=== PATIENT | male | born 1950 | race Caucasian/White ===

== ENCOUNTER 2022-12-26 10:19 | Outpatient (OUT) | payer MEDICARE, MEDICAID, SELFPAY | END 2022-12-26 10:20 | LOC: WC 10:21 | PROVIDERS: PCP Internal Medicine; Visit Provider Physician Assistant | DX: L89.620 Pressure ulcer of left heel, unstageable (principal); L89.610 Pressure ulcer of right heel, unstageable | CPT/HCPCS: 99213; G0463 ==

== ENCOUNTER 2023-01-16 12:54 | Outpatient (OUT) | payer MEDICARE, MEDICAID, SELFPAY | END 2023-01-16 12:55 | disposition home or self-care (01) | LOC: WC 12:55 | PROVIDERS: PCP Internal Medicine; Visit Provider Physician Assistant | DX: L89.620 Pressure ulcer of left heel, unstageable (principal); L89.610 Pressure ulcer of right heel, unstageable; I25.10 Atherosclerotic heart disease of native coronary artery without angina pectoris; I50.43 Acute on chronic combined systolic (congestive) and diastolic (congestive) heart failure; J44.9 Chronic obstructive pulmonary disease, unspecified; E11.9 Type 2 diabetes mellitus without complications; K21.9 Gastro-esophageal reflux disease without esophagitis; E78.5 Hyperlipidemia, unspecified; I10 Essential (primary) hypertension; E03.9 Hypothyroidism, unspecified; F41.9 Anxiety disorder, unspecified; Z87.820 Personal history of traumatic brain injury; F06.0 Psychotic disorder with hallucinations due to known physiological condition; F25.0 Schizoaffective disorder, bipolar type | CPT/HCPCS: A6213; G0463 ==

== ENCOUNTER 2023-02-06 10:39 | Outpatient (OUT) | payer MEDICARE, MEDICAID, SELFPAY | END 2023-02-06 10:40 | disposition home or self-care (01) | LOC: WC 10:39 | PROVIDERS: PCP Internal Medicine; Visit Provider Physician Assistant | DX: L89.620 Pressure ulcer of left heel, unstageable (principal); L89.610 Pressure ulcer of right heel, unstageable | CPT/HCPCS: A6213; G0463 ==

== ENCOUNTER 2023-02-08 11:19 | Outpatient (REF) | payer MEDICARE, MEDICAID, SELFPAY ==
[2023-02-08 12:08] LABS: Basophils Absolute Auto 0.1 10^3/uL (0.0-0.1); Basophils Percent Auto 0.8 % (0.2-2.0); Eosinophils Absolute Auto 0.2 10^3/uL (0.0-0.7); Eosinophils Percent Auto 2.6 % (0.9-7.0); Hemoglobin 12.5 g/dL (14.0-18.0); Immature Granulocytes Abs Auto 0.04 10^3/uL (0.00-0.03); Immature Granulocytes Pct Auto 0.5 % (0.0-0.5); Lymphocytes Absolute Auto 1.8 10^3/uL (1.2-3.8); Lymphocytes Percent Auto 20.7 % (20.5-60.0); Mean Corpuscular HGB Conc 32.9 g/dL (29.9-35.2); Mean Corpuscular Volume 91.1 fL (80.0-94.0); Mean Platelet Volume 9.3 fL (9.5-13.5); Monocytes Absolute Auto 1.2 10^3/uL (0.3-0.8); Monocytes Percent Auto 13.1 % (1.7-12.0); Neutrophils Absolute Auto 5.5 10^3/uL (1.4-6.5); Neutrophils Percent Auto 62.3 % (43.0-75.0); Platelet Count 474 10^3/uL (150-450); Red Blood Count 4.17 10^6/uL (4.70-6.10); Red Cell Distribution Width 13.6 % (11.0-15.0); White Blood Count 8.9 10^3/uL (4.0-11.0)
[2023-02-08 12:23] LABS: Alanine Aminotransferase 19 U/L (16-63); Albumin Globulin Ratio 0.6; Albumin Level 2.8 g/dL (3.4-5.0); Alkaline Phosphatase 78 U/L (46-116); Anion Gap 12.7; Aspartate Amino Transferase 17 U/L (15-37); BUN Creatinine Ratio 29.2; Bilirubin Total 0.2 mg/dL (0.2-1.0); Bilirubin Urine NEGATIVE (NEGATIVE); Blood Urine TRACE-I (NEGATIVE); Calcium 9.5 mg/dL (8.5-10.1); Carbon Dioxide 27.1 mmol/L (21.0-32.0); Chloride 102 mmol/L (98-107); Clarity Urine CLEAR (CLEAR); Color Urine YELLOW (YELLOW); Estimated GFR (African America >60 (>=60); Estimated GFR (Non-African Ame >60 (>=60); Globulin 4.6 g/dL; Glucose 167 mg/dL (74-106); Glucose Urine UA NEGATIVE (NEGATIVE); Ketones Urine NEGATIVE (NEGATIVE); Leukocyte Esterase Urine NEGATIVE (NEGATIVE); Nitrite Urine NEGATIVE (NEGATIVE); Potassium 3.8 mmol/L (3.5-5.1); Protein Urine NEGATIVE (NEG/TRACE); Sodium 138 mmol/L (136-145); Specific Gravity Urine 1.025 (1.005-1.025); Thyroid Stimulating Hormone 2.422 uIU/mL (0.358-3.740); Total Protein 7.4 g/dL (6.4-8.2); Urobilinogen Urine 0.2 EU/dL (0.2-1.0); Valproic Acid 55.9 ug/mL (50.0-100.0)
[2023-02-08 12:28] LABS: Urine Microscopic Indicated YES
[2023-02-08 12:41] LABS: WBC Urine 0-2 #/HPF (NONE SEEN)
[2023-02-08 12:42] LABS: Bacteria Urine NONE SEEN #/HPF (NONE SEEN); Cast Seen? NONE SEEN #/LPF (NONE SEEN); Crystals Seen? None Seen #/HPF (None Seen); Mucus Urine NONE SEEN (NONE SEEN); Squamous Epithelial Cell Urine RARE #/LPF (NONE/RARE)
== END 2023-02-08 11:20 | disposition home or self-care (01) ==
LOC: LAB 11:19
PROVIDERS: PCP Internal Medicine
DX: R41.82 Altered mental status, unspecified (principal)
CPT/HCPCS: 36415; 80053; 80164; 81003; 81015; 84443; 85025

== ENCOUNTER 2023-02-13 09:16 | Outpatient (REF) | payer MEDICARE, MEDICAID, SELFPAY ==
[2023-02-13 11:59] LABS: BUN Creatinine Ratio 17.7; Carbon Dioxide 25.6 mmol/L (21.0-32.0); Chloride 103 mmol/L (98-107); Estimated GFR (African America >60 (>=60); Estimated GFR (Non-African Ame >60 (>=60); Glucose 133 mg/dL (74-106); Potassium 3.6 mmol/L (3.5-5.1); Sodium 136 mmol/L (136-145)
== END 2023-02-13 09:17 | disposition home or self-care (01) ==
LOC: LAB 09:16
PROVIDERS: PCP Internal Medicine
DX: Z51.81 Encounter for therapeutic drug level monitoring (principal); Z79.899 Other long term (current) drug therapy
CPT/HCPCS: 36415; 80048

== ENCOUNTER 2023-02-14 08:43 | Outpatient (OUT) | payer MEDICARE, MEDICAID, SELFPAY ==
--- NOTE | 2023-02-14 10:38 | CT_ITS ---
The [address] [address] Patient Name: SHELBY VALERIO MRN: [id number] date: 1950 Sex: M Assigned Patient Location: CT Current Patient Location: CT Accession/Order Number: [id number] Exam Date: 02/14/2023 09:55 Report Date: 02/14/2023 11:52 At the request of: ADELINA NIXON Procedure: CT head/brain wo/w con EXAM: CT head/brain wo/w con HISTORY: Lower extremity weakness COMPARISON: 10/17/2022 TECHNIQUE: Axial CT images were obtained of the head without and with intravenous contrast. Multiplanar reconstructions were performed. FINDINGS: No acute intracranial hemorrhage. No acute loss of che/white differentiation. There is a chronic area of encephalomalacia in the right frontotemporal lobe. A couple of small chronic lacunar infarctions are present in the cerebellum bilaterally. A chronic lacunar infarction is present in the right thalamus. Moderate patchy areas of deep white matter hypoattenuation are present. The ventricles and sulci are prominent due to parenchymal volume loss. No mass lesion or abnormal enhancement. The osseous structures are unremarkable. No soft tissue abnormality identified. The paranasal sinuses and mastoid air cells are clear. CT/CT head/brain wo/w con IMPRESSION: 1. No acute intracranial abnormality. No abnormal enhancement. 2. Multifocal chronic ischemic changes. Electronically authenticated by: CHERI DOBBS Date: 02/14/2023 11:52
== END 2023-02-14 08:44 | disposition home or self-care (01) ==
LOC: CT 08:44
PROVIDERS: PCP Family Medicine; Visit Provider Family Medicine
DX: R53.1 Weakness (principal)
CPT/HCPCS: 70470; Q9967

== ENCOUNTER 2023-02-14 08:47 | Outpatient (REF) | payer MEDICARE, MEDICAID, SELFPAY ==
[2023-02-14 09:02] LABS: Hematocrit 41.1 % (42.0-54.0); Hemoglobin 13.2 g/dL (14.0-18.0); Mean Corpuscular HGB Conc 32.1 g/dL (29.9-35.2); Mean Corpuscular Hemoglobin 29.5 pg (25.9-34.0); Mean Corpuscular Volume 91.7 fL (80.0-94.0); Mean Platelet Volume 9.5 fL (9.5-13.5); Platelet Count 401 10^3/uL (150-450); Red Blood Count 4.48 10^6/uL (4.70-6.10); Red Cell Distribution Width 13.7 % (11.0-15.0); White Blood Count 14.8 10^3/uL (4.0-11.0)
[2023-02-14 09:28] LABS: Eosinophils Absolute Manual 0.29 10^3/uL (0.00-0.70); Lymphocytes Absolute Manual 4.44 10^3/uL (1.20-3.80); Monocytes Absolute Manual 2.66 10^3/uL (0.30-0.80)
== END 2023-02-14 08:48 | disposition home or self-care (01) ==
LOC: LAB 08:47
PROVIDERS: PCP Family Medicine; Visit Provider Family Medicine
DX: Z51.81 Encounter for therapeutic drug level monitoring (principal); Z79.899 Other long term (current) drug therapy
CPT/HCPCS: 36415; 85007; 85025

== ENCOUNTER 2023-02-14 18:28 | Inpatient (IN) | payer MEDICARE, MEDICAID, SELFPAY ==
[2023-02-14] VITALS (42 sets, daily range): BP systolic 84–161; BP diastolic 56–114; PULSE 90–131; RESP 13–47; TEMP 36.8; O2SAT 85–100; BMI 26.6; BMI 21.3
[2023-02-14] MEDS: ONDANSETRON PF 4 MG/2 ML VIAL (18:29)
--- NOTE | 2023-02-14 18:30 | PC.NURSE ---
1822 pt arrives to er via ems pt is obtunded and only responds to painful stimuli. [facility] crew reports were unable to get last known well from [facility]. there was concern of aspiration, pt with fever 104.0, and mentation worse than normal but normal mentation is unknown to ems or the er team. pt taken to room 6. dr rivera in immediately to see pt. pt pulse ox 96% on NRB mask, hr 120-130's. 182 dr rivera electing to intubate pt as pt has difficulty breathing, no verbal response but does open eyes to painful stimuli. dr rivera does speak with pt regarding plan to intubate to protect pt's airway as he is a full code. 1827 #20g iv initiated per toro pearson to rt fa. pt placed on monitor, ekg obtained. routine bp monitoring and continuous pulse ox in place. 182 zofran 4mg given ivp. per jamal eastman rn RT at bedside preparing for intubation wtih dr rivera. 183 etomidate 15mg given ivp per toro pearson rn. 183 Rocironium 80mg given ivp per senthil carter rn. dr rivera and RT Leonor Benavides and Manav Asher at bedside to assist with intubation. 183 pt intubated with 8 ETT wtih good color change and condensation in ETT. pt bagging easily via bvm. ETT 22cm at the [facility]. 1840 cxr completed at this time. 184 ett moved to 25cm at the [facility]. 184 another cxr completed and dr rivera reviewing for ett positioning. dr rivera at bedside to reposition ETT 24cm at the [facility]. 1948 [place] sump 18 fr OG placed per jamal eastman rn with air bolus auscultated to abd per senthil carter rn. lab in for blood draw currently. 185 cxr completed and checked with dr rivera. 1899 kub done to check og placement. [address] with nursing and rt staff at bedside.
--- NOTE | 2023-02-14 18:31 | ECG_ITS ---
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
[2023-02-14] MEDS: ETOMIDATE 20 MG/10 ML VIAL (18:32)
--- NOTE | 2023-02-14 18:33 | CT_ITS ---
The [address] [address] Patient Name: SHELBY VALERIO MRN: [id number] date: 1950 Sex: M Assigned Patient Location: ER Current Patient Location: ER Accession/Order Number: [id number] Exam Date: 02/14/2023 19:00 Report Date: 02/14/2023 19:43 At the request of: JOSE ARMANDO VAZQUEZ Procedure: CT stroke head/brain wo con EXAM: CT stroke head/brain wo con HISTORY: altered mental status COMPARISON: 02/14/2023 at 10:16 AM TECHNIQUE: Unenhanced transaxial tomographic sections obtained from the vertex through the posterior fossa. FINDINGS: Old right MCA distribution infarcts with associated encephalomalacia, unchanged. Old left cerebellar infarcts. Moderate bilateral chronic microvascular ischemic change. No midline shift, mass effect or intracranial hemorrhage are identified. The mastoid air cells are clear. Moderate fluid layering within the left maxillary sinus and small volume of fluid layering within the right maxillary sinus. CT/CT stroke head/brain wo con IMPRESSION: 1. No acute intracranial process is identified. 2. Old cerebellar and right MCA distribution infarcts with associated encephalomalacia. Moderate bilateral chronic microvascular ischemic change. 3. Fluid within the bilateral maxillary sinuses which may be secondary to sinusitis. Electronically authenticated by: JOY GENTILE Date: 02/14/2023 19:43
--- NOTE | 2023-02-14 18:45 | XR_ITS ---
[address] [address] Patient Name: SHELBY VALERIO MRN: [id number] date: 1950 Sex: M Assigned Patient Location: ER Current Patient Location: ER Accession/Order Number: [id number] Exam Date: 02/14/2023 18:45 Report Date: 02/14/2023 19:07 At the request of: JOSE ARMANDO VAZQUEZ Procedure: XR chest 1V EXAMINATION: XR chest 1V HISTORY: Unresponsiveness COMPARISON: None. TECHNIQUE: Portable chest FINDINGS: IMPRESSION: Endotracheal tube has been placed. The tip is 4.1 cm proximal to the rebekah. The lung parenchyma is free of consolidation or infiltrate. No pneumothorax or pleural effusion. The cardiac, mediastinal and hilar contours are normal. The visualized osseous structures exhibit no gross abnormality. Electronically authenticated by: RENEE WHITTINGTON Date: 02/14/2023 19:07
--- NOTE | 2023-02-14 18:51 | ED.GENADUL1 ---
HPI - General Adult General Chief complaint: Shortness of Breath/Dyspnea Stated complaint: FEVER Time Seen by Provider: 02/14/23 18:29 History of Present Illness HPI narrative: Patient is a 72-year-old male who is presenting to the Emergency Room unresponsive, hypoxic from [facility] it was reported the patient was here this morning and had a outpatient CT of the brain with and without contrast. Patient was brought in EMS secondary to hypoxia, unresponsive, and feared aspiration. It was reported by EMS that patient has been not as responsive for the past couple days. Patient was noted to have a fever today. Patient was hypoxic when EMS staff arrived, they placed patient on a nonrebreather, 15 L and patient was in the mid 90s. When patient presented to room 7, patient looks obtunded, not responsive. I asked EMS staff, they stated that he has not been talking, not responding to painful stimuli; they did not know what his GCS was. Patient's blood sugar was within normal limits. Patient was placed into trauma bay, patient had a GCS of 3 and intermittently had a GCS of 6 because he did open his eyes briefly. Patient will be intubated to help protect his airway and secondary to his neurological status. He was reported the patient had a fever andd nursing staff was concerned about possible aspiration. . Limited review of systems to senior care report, EMS staff report, patient is obtunded and nonresponsive . Nurses note and vital signs reviewed and patient is not hypoxic. General: The patient appears In respiratory distress, tachypneic, not opening his eyes, not responding to pain initially, not speaking. Patient is obtunded, not responding. Skin: Warm, Clammy, no pallor noted. There is no rash noted. No petechiae, purpura. Head: Normocephalic, atraumatic Eye: Normal conjunctiva, no drainage, Ears, Nose, Mouth, and Throat: oral mucosa is Dry, poor dentition Cardiovascular: Tachycardic Regular Rate and Rhythm, no murmur, gallop, rub Respiratory: Patient is in Moderate respiratory distress, increased respiratory rate, not speaking, feared aspiration GI: soft, No distention Musculoskeletal: Patient has No moovement of any extremities Neurological: A&O x0, GCS 3 For me initially, patient intermittently would open his eyes without command, but family close them and not open them back up with command. Patient did not respond to my sternal rub twice, barely responded to IV start and painful stimuli by nursing staff; but then I did a sternal rub after this and he did not respond. Patient is not able to protect his airway, GCS less than 8, patient will be intubated. Psychiatric: Cooperative Related Data Home Medications Medication Instructions Recorded Confirmed acetaminophen PO 02/14/23 amlodipine 10 mg tablet 10 mg 02/14/23 aspirin 81 mg tablet,delayed 81 mg 02/14/23 release baclofen 10 mg tablet mg 02/14/23 clonidine HCl 0.1 mg tablet 0.1 mg PO 02/14/23 collagenase clostridium histo. 250 topical 02/14/23 unit/gram topical ointment (Santyl) divalproex 125 mg capsule,delayed mg PO 02/14/23 release sprinkle doxycycline hyclate 100 mg tablet 100 mg PO 02/14/23 gabapentin 300 mg capsule 600 mg PO 02/14/23 gabapentin 600 mg tablet mg 02/14/23 ondansetron 4 mg disintegrating mg 02/14/23 tablet quetiapine 25 mg tablet mg 02/14/23 quetiapine 50 mg tablet mg 02/14/23 tamsulosin 0.4 mg capsule mg PO 02/14/23 Allergies Allergy/AdvReac Type Severity Reaction Status Date / Time Penicillins Allergy Severe Verified 02/14/23 18:30 propoxyphene [From Darvon] Allergy Severe Unknown Verified 02/14/23 18:30 Exam Constitutional Vital Signs, click to edit/add: Last Vital Signs Pulse 111 H 02/14/23 19:28 Resp 16 02/14/23 19:28 Pulse Ox 95 02/14/23 19:28 O2 Del Method Mechanical Ventilator 02/14/23 18:45 FiO2 60 02/14/23 19:28 Course Vital Signs Vital signs: Vital Signs Oxygen Delivery Method Mechanical Ventilator 02/14/23 18:45 Pulse Rate 111 H 02/14/23 19:28 Respiratory Rate 16 02/14/23 19:28 Pulse Oximetry 95 02/14/23 19:28 Oxygen Delivery Method Mechanical Ventilator 02/14/23 18:45 Fraction of Inspired Oxygen 60 02/14/23 19:28 Medical Decision Making MDM Narrative Medical decision making narrative: Patient presented unresponsive, obtunded, GCS less than 8. Patient had a fever and feared aspiration. Patient had a septic workup initiated, CT of the brain was ordered as well prior to me knowing the patient already had a CT of the brain this morning that I did not know about. We will pursue with orders. Patient is transitioned to Dr. kelly at 1900 for follow-up on patient's lab work, x-ray, CT of the brain and admission to the ICU. I have spoken to , and he is aware of patient and can be consulted if needed and help manage the event. Critical care time 35 minutes exclusive from separate billable procedures that were performed. The following was considered in the determination of critical care but not limited to the level of medical decision making, intensive cardiac and/or respiratory monitoring, frequent vital sign monitoring, evaluation of laboratory studies, evaluation of radiographic studies, oxygen monitoring, and constant monitoring and speaking to family at bedside Lab Data Labs: Lab Results 02/14/23 02/14/23 Range/Units 18:53 19:35 WBC 23.5 H (4.0-11.0) 10^3/uL RBC 4.19 L (4.70-6.10) 10^6/uL Hgb 12.5 L (14.0-18.0) g/dL Hct 39.0 L (42.0-54.0) % MCV 93.1 (80.0-94.0) fL MCH 29.8 (25.9-34.0) pg MCHC 32.1 (29.9-35.2) g/dL RDW 13.7 (11.0-15.0) % Plt Count 409 (150-450) 10^3/uL MPV 8.7 L (9.5-13.5) fL Seg Neuts % (Manual) 88.0 Lymphocytes % (Manual) 1.0 L (20.5-60.0) % Atypical Lymphs % (Man) 2.0 % Monocytes % (Manual) 6.0 (1.7-12.0) % Eosinophils % (Manual) 3.0 (0.9-7.0) % Basophils % (Manual) 0.0 L (0.2-2.0) % Neutrophils # (Manual) 20.68 H (1.4-6.5) 10^3/uL Lymphocytes # (Manual) 0.23 L (1.20-3.80) 10^3/uL Monocytes # (Manual) 1.41 H (0.30-0.80) 10^3/uL Eosinophils # (Manual) 0.70 (0.00-0.70) 10^3/uL Basophils # (Manual) 0.00 (0.00-0.10) 10^3/uL PT 10.5 (9.0-11.6) sec INR 0.99 APTT 23.3 (22.3-36.2) sec Puncture Site Rradial ABG pH 7.286 L* (7.350-7.450) ABG pCO2 54.5 H* (35.0-45.0) mmHg ABG pO2 116.0 H (80.0-100.0) mmHg ABG HCO3 25.9 (22.0-26.0) mmol/L ABG O2 Saturation 97.9 % ABG Base Excess -0.7 (-2.0-2.0) mmol/L Ronald Test Positive (POSITIVE) Vent Mode Vc-ac Tidal Volume 400 Sodium 140 (136-145) mmol/L Potassium 4.8 (3.5-5.1) mmol/L Chloride 104 (98-107) mmol/L Carbon Dioxide 26.3 (21.0-32.0) mmol/L Anion Gap 14.5 BUN 23.0 H (7.0-18.0) mg/dL Creatinine 1.22 (0.70-1.30) mg/dL Est GFR ( Amer) >60 (>=60) Est GFR (Non-Af Amer) 58 L (>=60) BUN/Creatinine Ratio 18.9 Glucose 154 H (74-106) mg/dL Lactate 2.7 H* (0.4-2.0) mmol/L Calcium 9.0 (8.5-10.1) mg/dL Total Bilirubin 0.2 (0.2-1.0) mg/dL AST 27 (15-37) U/L ALT 24 (16-63) U/L Alkaline Phosphatase 84 (46-116) U/L Ammonia 33 H (11-32) umol/L Total Creatine Kinase 369 H* (39-308) U/L Total Protein 7.6 (6.4-8.2) g/dL Albumin 2.7 L (3.4-5.0) g/dL Globulin 4.9 g/dL Albumin/Globulin Ratio 0.6 ECG Data Attestation: I personally reviewed and interpreted this ECG as follows: Interpretation: EKG interpretation. Sinus tachycardia at 114. Normal axis deviation. No acute ST elevation, no acute ectopy. QTC of 370. Discharge Plan Discharge Chief Complaint: Shortness of Breath/Dyspnea Clinical Impression: Episode of unresponsiveness, Febrile, Aspiration pneumonia, Acute respiratory distress Patient Disposition: Admitted As Inpatient Condition: Critical Procedures ED Procedure Instructions Procedures Procedures: procedure note. Procedure done by . intubation. patient was preoxygenated with [id number], patient maintain occupation in the high 90s% saturation. A 3-0 Bluford scope blade was used. Patient's has no teeth. A 8.0 ET tube was used. The balloon was checked with 10 cc of air prior to use. There are no holes in the balloon. Vocal cords were visualized. The ET tube was visualized passing through the vocal cords. Patient had good color change on capnometer. Patient had equal breath sounds bilateral, good condensation in the ET tube. The ET tube was secured at 22cm at the gumline Initially.. Patient tolerated the procedure well without difficulty, no trauma was induced. Postintubation chest x-ray was done, patient's ET tube is sitting above the rebekah It was advanced to 24 cm At the gumline and sitting above the rebekah. no emesis occurred. Patient's OG was in place as well.
--- NOTE | 2023-02-14 19:06 | XR_ITS ---
The [address] [address] Patient Name: SHELBY VALERIO MRN: [id number] date: 1950 Sex: M Assigned Patient Location: ER Current Patient Location: ER Accession/Order Number: [id number] Exam Date: 02/14/2023 19:00 Report Date: 02/14/2023 19:24 At the request of: JODI CHIN Procedure: XR abdomen 1V EXAM: XR abdomen 1V HISTORY: check OG COMPARISON: None. TECHNIQUE: Single view FINDINGS: IMPRESSION: Enteric tube is visualized as well as its sidehole. However, the diaphragms are not visualized on this study to give a definitive location. The bowel gas pattern is nonobstructed. Electronically authenticated by: RENEE WHITTINGTON Date: 02/14/2023 19:24
[2023-02-14 19:11] LABS: Hemoglobin 12.5 g/dL (14.0-18.0); Mean Corpuscular HGB Conc 32.1 g/dL (29.9-35.2); Mean Corpuscular Hemoglobin 29.8 pg (25.9-34.0); Mean Corpuscular Volume 93.1 fL (80.0-94.0); Mean Platelet Volume 8.7 fL (9.5-13.5); Platelet Count 409 10^3/uL (150-450); Red Blood Count 4.19 10^6/uL (4.70-6.10); Red Cell Distribution Width 13.7 % (11.0-15.0); White Blood Count 23.5 10^3/uL (4.0-11.0)
[2023-02-14 19:18] LABS: Ammonia 33 umol/L (11-32)
[2023-02-14 19:23] LABS: INR 0.99; Partial Thromboplastin Time 23.3 sec (22.3-36.2); Prothrombin Time 10.5 sec (9.0-11.6)
[2023-02-14 19:24] LABS: Alanine Aminotransferase 24 U/L (16-63); Albumin Globulin Ratio 0.6; Albumin Level 2.7 g/dL (3.4-5.0); Alkaline Phosphatase 84 U/L (46-116); Anion Gap 14.5; Aspartate Amino Transferase 27 U/L (15-37); BUN Creatinine Ratio 18.9; Bilirubin Total 0.2 mg/dL (0.2-1.0); Carbon Dioxide 26.3 mmol/L (21.0-32.0); Chloride 104 mmol/L (98-107); Estimated GFR (African America >60 (>=60); Estimated GFR (Non-African Ame 58 (>=60); Globulin 4.9 g/dL; Glucose 154 mg/dL (74-106); Potassium 4.8 mmol/L (3.5-5.1); Sodium 140 mmol/L (136-145); Total Protein 7.6 g/dL (6.4-8.2)
[2023-02-14 19:25] LABS: Creatine Kinase 369 U/L (39-308); Lactate/Lactic Acid 2.7 mmol/L (0.4-2.0)
[2023-02-14 19:38] LABS: Lymphocytes Absolute Manual 0.23 10^3/uL (1.20-3.80); Monocytes Absolute Manual 1.41 10^3/uL (0.30-0.80); Segmented Neut Absolute Manual 20.68 10^3/uL (1.4-6.5)
[2023-02-14 19:45] LABS: Allen Test POSITIVE (POSITIVE); Base Excess ABG -0.7 mmol/L (-2.0-2.0); HCO3 ABG 25.9 mmol/L (22.0-26.0); Oxygen Saturation ABG 97.9 %
[2023-02-14 19:46] LABS: Puncture Site RRADIAL; Rate 16; Tidal Volume 400; Vent Mode VC-AC
[2023-02-14 19:47] LABS: ABG PCO2 54.5 mmHg (35.0-45.0); pH ABG 7.286 (7.350-7.450)
--- NOTE | 2023-02-14 19:48 | PC.NURSE ---
Shana from lab called criticals. [facility] PH 7.[address] masters.
[2023-02-14] MEDS: LEVOFLOXACIN IN DEXTROSE 5 % 750 MG/150 ML IV.SOLN 100 MG IV (19:54)
[2023-02-14] MEDS: VANCOMYCIN HCL 1,000 MG in 0.9 % SODIUM CHLORIDE 250 ML 250 MG IV (19:59)
[2023-02-14] MEDS: 0.9 % SODIUM CHLORIDE 1,000 ML 999 ML IV (20:04)
--- NOTE | 2023-02-14 20:08 | XR_ITS ---
The [address] [address] Patient Name: SHELBY VALERIO MRN: [id number] date: 1950 Sex: M Assigned Patient Location: ER Current Patient Location: ER Accession/Order Number: [id number] Exam Date: 02/14/2023 20:10 Report Date: 02/14/2023 20:54 At the request of: LAKE SHAH Procedure: XR calcaneus RT min 2V EXAM: XR calcaneus RT min 2V TECHNIQUE: AP and lateral views calcaneus HISTORY: heel wound COMPARISON: None. FINDINGS: No fracture or dislocation. No bony destruction. Small soft tissue wound is seen laterally. XR/XR calcaneus RT min 2V IMPRESSION: Small soft tissue wound without acute bony abnormality. Electronically authenticated by: NAHID TARIQ Date: 02/14/2023 20:54
--- NOTE | 2023-02-14 20:08 | XR_ITS ---
The [address] [address] Patient Name: SHELBY VALERIO MRN: [id number] date: 1950 Sex: M Assigned Patient Location: ER Current Patient Location: ICU Accession/Order Number: [id number] Exam Date: 02/14/2023 20:10 Report Date: 02/14/2023 21:09 At the request of: LAKE SHAH Procedure: XR calcaneus LT min 2V EXAM: XR calcaneus LT min 2V HISTORY: heel wound COMPARISON: None. FINDINGS: 2 views of the left calcaneus. There is no acute fracture or dislocation. The joint spaces are well-maintained. There is a large soft tissue defect over the posterior margin of the calcaneus. There are suspected increased lucency of the subchondral bone plate of the calcaneus deep to the soft tissue wound. XR/XR calcaneus LT min 2V IMPRESSION: Soft tissue wound over the posterior margin of the left foot, with increased subchondral lucency of the underlying calcaneus, an appearance that can be seen with osteomyelitis. Electronically authenticated by: CELESTINO MANCERA Date: 02/14/2023 21:09
[2023-02-14] MEDS: PROPOFOL 1,000 MG/100 ML VIAL 4.8 MG IV (20:10)
[2023-02-14 20:21] LABS: Bilirubin Urine NEGATIVE (NEGATIVE); Blood Urine SMALL (NEGATIVE); Clarity Urine CLEAR (CLEAR); Color Urine LT. YELLOW (YELLOW); Glucose Urine UA NEGATIVE (NEGATIVE); Ketones Urine TRACE mg/dL (NEGATIVE); Leukocyte Esterase Urine NEGATIVE (NEGATIVE); Nitrite Urine NEGATIVE (NEGATIVE); Protein Urine NEGATIVE (NEG/TRACE)
[2023-02-14 20:27] LABS: Urine Microscopic Indicated YES
[2023-02-14 20:29] LABS: Bacteria Urine LARGE #/HPF (NONE SEEN); Cast Seen? NONE SEEN #/LPF (NONE SEEN); Crystals Seen? None Seen #/HPF (None Seen); Mucus Urine NONE SEEN (NONE SEEN); RBC Urine 0-2 #/HPF (0-2); Squamous Epithelial Cell Urine RARE #/LPF (NONE/RARE); Urine Culture Indicated YES; WBC Urine NONE SEEN #/HPF (NONE SEEN)
[2023-02-14 21:18] LABS: Troponin I High Sensitivity 51.3 pg/mL (4.0-76.1)
[2023-02-14 22:25] LABS: Lactate/Lactic Acid 1.8 mmol/L (0.4-2.0)
--- NOTE | 2023-02-14 23:44 | W.PM.TELEPN ---
Progress Note: Subjective Subjective Interval history: The patient is a 72 year old, longterm resident, who has a traumatic brain injury. He apparently has some cognitive deficits at baseline and right arm hemiparesis. He has been having some change in mental status over the last few days. He underwent lab work and a CT of the head which were all normal. He was brought into the ER today because he was more hypoxic. He was noted to have a GSC of 3 and was intubated in the ED. Prior to that, he vomited and there was some aspirated pink secretions. The patient also has been noted to have some bilateral lower extremity ulcers and x-ray has confirmed osteomyelitis of the left heel. The patient was started on vancomycin and Levaquin. He was started on a propofol drip and remains comfortable with mechanical ventilation. He is being admitted to the ICU for further evaluation. Exam Narrative Exam Narrative: General : Intubated, sedated Neck: Supple, no JVD Chest: Clear to auscultation bilaterally, no wheezes Heart: Regular rate and rhythm, S1 and S2 heard Abdomen: Soft nontender nondistended. Extremities: No clubbing cyanosis or edema Skin: Lower extremity ulcers Constitutional Vital Signs, click to edit/add: Last Vital Signs Temp 98.2 F 02/14/23 22:38 Pulse 93 H 02/14/23 22:40 Resp 26 H 02/14/23 22:38 BP 99/64 02/14/23 22:38 Pulse Ox 99 02/14/23 22:40 O2 Del Method Mechanical Ventilator 02/14/23 22:38 FiO2 60 02/14/23 22:38 Progress Note: Objective Labs Labs: Short CBC 02/14/23 Range/Units 18:53 WBC 23.5 H (4.0-11.0) 10^3/uL Hgb 12.5 L (14.0-18.0) g/dL Hct 39.0 L (42.0-54.0) % Plt Count 409 (150-450) 10^3/uL BMP 02/14/23 18:53 Sodium 140 Potassium 4.8 Chloride 104 Carbon Dioxide 26.3 BUN 23.0 H Creatinine 1.22 Glucose 154 H Calcium 9.0 Cardiac Enzymes 02/14/23 Range/Units 18:53 Total Creatine Kinase 369 H* (39-308) U/L Liver Function 07/25/23 Range/Units 18:53 Total Bilirubin 0.2 (0.2-1.0) mg/dL AST 27 (15-37) U/L ALT 24 (16-63) U/L Alkaline Phosphatase 84 (46-116) U/L Albumin 2.7 L (3.4-5.0) g/dL Urine 02/14/23 Range/Units 17:00 Urine Color Lt. yellow (YELLOW) Urine Clarity Clear (CLEAR) Urine pH 6.0 (5.0-9.0) Ur Specific [place] 1.020 (1.005-1.025) Urine Protein Negative (NEG/TRACE) mg/dL Urine Glucose (UA) Negative (NEGATIVE) mg/dL Progress Note: A&P Assessment and Plan (1) Aspiration pneumonia: (2) Acute respiratory distress: Plan The patient is a 72-year-old male with above medical problems, presenting with sepsis secondary to aspiration pneumonia and acute respiratory failure. Acute respiratory failure -Requiring mechanical ventilation -Current vent settings show tidal volume 400, respiratory rate 16, PEEP of 5 and 60% FiO2 -Sedated with 15 mics of propofol -Repeat ABG tonight and adjust settings as needed. -ED provider spoke to pulmonary critical care who will help in further vent management. Sepsis secondary to aspiration pneumonia -Start lactated Ringer IV fluids -Obtain endotracheal aspirate for sputum culture. -Empiric antibiotics with vancomycin, Levaquin, add clindamycin (allergic to penicillin) Osteomyelitis of left heel -Provide supportive care -Above antibiotic should be adequate -Patient may need further evaluation such as bone debridement once acute condition subsides Neuropathy and chronic pain -Hold outpatient medications, patient is currently on propofol Hypertension -Was on clonidine as outpatient -Hydralazine IV as needed -May need scheduled IV medication or transdermal patch pending on blood pressure trends. DVT Prophylaxis -Lovenox, SCDs Medication review -Medication reconciliation form completed Goals of care -Full code -Goals of care will need to be discussed with patient's sister who is out of state and he has a local friend named Shanna. Communications -Discussed with the emergency room physician -Discussed with the bedside nurse Disposition -[facility] when medically stable Telemedicine clause -As the provider of this telehealth evaluation, requested by the patient's evaluating physician, I attest that I introduced myself to the patient, provided my credentials and determined that telemedicine via a real-time, two-way interactive audio and video platform is an appropriate and effective means of providing this service. -I reviewed the patient's chart and had a discussion with the member of the patient's treatment team. -The patient and I mutually agreed with continuation of this evaluation via telemedicine. The patient consented for the telemedicine evaluation. -This virtual encounter was taken place from [place], [place]. The encounter was approximately 35 minutes. The nurse was present during the entire time of the encounter and was able to remove the stethoscope and appropriate directions. The patient was evaluated at [facility]. Telemedicine Attestation Telemedicine Attestation I conducted this encounter from [] via secure live, [id number] video conference with the patient, located at [facility] with []. Prior to the interview, the risks and benefits of telemedicine were discussed with the patient and verbal consent was obtained.
[2023-02-15] VITALS (135 sets, daily range): BP systolic 75–142; BP diastolic 42–72; PULSE 69–98; RESP 16–33; TEMP 36.6–38.2; O2SAT 89–99; BMI 24.0
[2023-02-15 00:22] LABS: ABG PCO2 46.1 mmHg (35.0-45.0); PO2 ABG 79.1 mmHg (80.0-100.0); pH ABG 7.377 (7.350-7.450)
[2023-02-15 00:23] LABS: Allen Test POSITIVE (POSITIVE); Base Excess ABG 1.9 mmol/L (-2.0-2.0); Fractionated Inspired Oxygen 50 %; HCO3 ABG 27.1 mmol/L (22.0-26.0); O2 Mode VENTILATOR; Oxygen Saturation ABG 96.5 %; Puncture Site RIGHT RADIAL; Rate 16; Tidal Volume 400; Vent Mode AC
[2023-02-15] MEDS: LACTATED RINGER'S SOLUTION 1,000 ML 100 ML IV ×2 (00:28→12:40)
[2023-02-15] MEDS: CLINDAMYCIN PHOSPHATE/D5W 600 MG/50 ML PIGGYBACK 100 MG IV ×2 (00:29→05:53)
[2023-02-15] MEDS: PANTOPRAZOLE SODIUM 40 MG VIAL IV (00:29)
[2023-02-15] MEDS: ENOXAPARIN SODIUM 40 MG/0.4 ML SYRINGE SUBQ ×2 (00:29→23:01)
--- NOTE | 2023-02-15 00:30 | RESP.RT ---
Titrated to 50%
--- NOTE | 2023-02-15 04:14 | RESP.RT ---
Titrated to 40%
[2023-02-15 05:09] LABS: Basophils Absolute Auto 0.1 10^3/uL (0.0-0.1); Basophils Percent Auto 0.2 % (0.2-2.0); Hematocrit 34.1 % (42.0-54.0); Hemoglobin 10.7 g/dL (14.0-18.0); Immature Granulocytes Pct Auto 0.7 % (0.0-0.5); Lymphocytes Absolute Auto 1.5 10^3/uL (1.2-3.8); Lymphocytes Percent Auto 5.4 % (20.5-60.0); Mean Corpuscular HGB Conc 31.4 g/dL (29.9-35.2); Mean Corpuscular Hemoglobin 29.8 pg (25.9-34.0); Mean Platelet Volume 9.3 fL (9.5-13.5); Monocytes Absolute Auto 2.9 10^3/uL (0.3-0.8); Monocytes Percent Auto 10.6 % (1.7-12.0); Neutrophils Percent Auto 83.1 % (43.0-75.0); Platelet Count 347 10^3/uL (150-450); Red Blood Count 3.59 10^6/uL (4.70-6.10); Red Cell Distribution Width 13.7 % (11.0-15.0); White Blood Count 27.7 10^3/uL (4.0-11.0)
[2023-02-15 05:26] LABS: Alanine Aminotransferase 21 U/L (16-63); Albumin Globulin Ratio 0.5; Albumin Level 2.2 g/dL (3.4-5.0); Alkaline Phosphatase 64 U/L (46-116); Anion Gap 13.2; Aspartate Amino Transferase 24 U/L (15-37); BUN Creatinine Ratio 22.7; Bilirubin Total 0.4 mg/dL (0.2-1.0); Calcium 8.8 mg/dL (8.5-10.1); Carbon Dioxide 26.4 mmol/L (21.0-32.0); Chloride 105 mmol/L (98-107); Estimated GFR (African America >60 (>=60); Estimated GFR (Non-African Ame >60 (>=60); Globulin 4.2 g/dL; Glucose 115 mg/dL (74-106); Potassium 4.6 mmol/L (3.5-5.1); Sodium 140 mmol/L (136-145); Total Protein 6.4 g/dL (6.4-8.2)
[2023-02-15] MEDS: VANCOMYCIN HCL 1,250 MG in 0.9 % SODIUM CHLORIDE 250 ML 250 MG IV ×2 (09:19→23:01)
--- NOTE | 2023-02-15 09:25 | XR_ITS ---
The [address] [address] Patient Name: SHELBY VALERIO MRN: [id number] date: 1950 Sex: M Assigned Patient Location: ICU Current Patient Location: CT Accession/Order Number: [id number] Exam Date: 02/15/2023 09:40 Report Date: 02/15/2023 10:05 At the request of: SHAIKH BRAD Procedure: XR chest 1V EXAM: XR chest 1V HISTORY: sob COMPARISON: 02/14/2023 TECHNIQUE: AP portable FINDINGS: LUNGS: Endotracheal tube tip is 6.4 cm above the rebekah. Minimal increase in interstitial lung markings VASCULATURE: Mild pulmonary vascular congestion PLEURA: No pneumothorax, effusion, or pleural thickening. CARDIAC: No cardiomegaly or cardiac silhouette abnormality. MEDIASTINUM: No visible mass or adenopathy. BONES: No fracture or visible bone lesion. OTHER: Enteric tube extends off the inferior XR/XR chest 1V IMPRESSION: Pulmonary vascular congestion Electronically authenticated by: RENEE BARBOZA Date: 02/15/2023 10:05
[2023-02-15 09:56] LABS: ABG PCO2 45.4 mmHg (35.0-45.0); PO2 ABG 72.7 mmHg (80.0-100.0); pH ABG 7.412 (7.350-7.450)
[2023-02-15 09:57] LABS: Base Excess ABG 4.2 mmol/L (-2.0-2.0); HCO3 ABG 28.9 mmol/L (22.0-26.0)
[2023-02-15 09:58] LABS: Allen Test POSITIVE (POSITIVE); Fractionated Inspired Oxygen 40 %; O2 Mode VENT; Puncture Site R. RADIAL; Rate 16; Tidal Volume 400; Vent Mode AC
--- NOTE | 2023-02-15 10:13 | CM.NOTE ---
Rounding with Dr. Mayorga and RN Yodit. Discussed possibly extubating patient and having RN contact [facility] to see what the patient's baseline is. RN reports this is his baseline according to [facility], he is a total care, ever lift. Anticipated to return to [facility] upon discharge.
--- NOTE | 2023-02-15 10:17 | CM.NOTE ---
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 I will send updates on pt.
--- NOTE | 2023-02-15 10:49 | DIETREC ---
Nutrition Recommendations: 1) Speech consult recommended for swallowing once extubated 2) If patient to remain intubated, recommend initiating nutrition support with Glucerna 1.5 Will monitor POC and follow-up
--- NOTE | 2023-02-15 11:41 | PM.HP ---
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 There was also a report of aspiration and on arrival, patient was hypoxic, with increased work of breathing with GCS of 3. Patient was intubated in ED primarily for failure to protect airway and was admitted overnight for sepsis. Patient was started on IV vancomycin/Levaquin and Clindamycin for presumed aspiration Pneumonia along with b/l feet osteomyelitis/cellulitis. This morning, patient was extubated sucessfully and is currently on 2 L O2 via NC. Patient has limited ability to converse and can answer yes and no and denied any active complaints to me. He seems to be at his baseline mental status today Review of Systems ROS Narrative Limited by patient's ability to converse but negative for SOB, Pain/fever. [facility] Medical History (Updated 02/15/23 @ 12:24 by Shaikh Tierra MD) Surgical History (Updated 02/15/23 @ 12:16 by Shaikh Tierra MD) Social History (Updated 02/15/23 @ 12:17 by Shaikh Tierra MD) Within the past year, how often did you have a drink containing alcohol: never Score interpretation: A score less than 4 is consistent with normal alcohol consumption. Smoking status: Never smoker Non-prescribed substance use: denies use Meds Home Medications and Allergies Home Medications Medication Instructions Recorded Confirmed Type acetaminophen 650 mg PO .every 4 hours PRN pain 02/14/23 02/14/23 History amlodipine 10 mg tablet 10 mg PO DAILY 02/14/23 02/14/23 History aspirin 81 mg tablet,delayed 81 mg PO DAILY 02/14/23 02/14/23 History release baclofen 10 mg tablet 10 mg PO TID 02/14/23 02/14/23 History clonidine HCl 0.1 mg tablet 0.1 mg PO BID 02/14/23 02/14/23 History collagenase clostridium histo. 250 topical 02/14/23 History unit/gram topical ointment (Santyl) divalproex 125 mg capsule,delayed 125 mg PO TID 02/14/23 02/14/23 History release sprinkle doxycycline hyclate 100 mg tablet 100 mg PO BID 02/14/23 02/14/23 History gabapentin 300 mg capsule 600 mg PO BID 02/14/23 02/14/23 History gabapentin 600 mg tablet mg 02/14/23 History ondansetron 4 mg disintegrating 4 mg PO Q6H PRN nausea and vomiting 02/14/23 02/14/23 History tablet quetiapine 25 mg tablet 75 mg PO BEDTIME 02/14/23 02/14/23 History quetiapine 50 mg tablet 75 mg PO BEDTIME 02/14/23 02/14/23 History tamsulosin 0.4 mg capsule 0.4 mg PO BEDTIME 02/14/23 02/14/23 History Allergies Allergy/AdvReac Type Severity Reaction Status Date / Time Penicillins Allergy Severe Verified 02/14/23 18:30 propoxyphene [From Darvon] Allergy Severe Unknown Verified 02/14/23 18:30 Exam Constitutional Vital Signs, click to edit/add: Last Vital Signs Temp 98.4 F 02/15/23 07:53 Pulse 91 H 02/15/23 09:55 Resp 24 02/15/23 09:01 BP 93/55 L 02/15/23 07:10 Pulse Ox 95 02/15/23 09:01 O2 Del Method Mechanical Ventilator 02/15/23 07:10 FiO2 40 02/15/23 09:01 Documenting provider has reviewed patient's vital signs: yes Common normals: no apparent distress, average body habitus and oriented x3 HENMT Common normals: normocephalic and head/scalp atraumatic Eye Common normals: conjunctivae normal and no scleral icterus Respiratory Common normals: normal respiratory effort, no use of accessory muscles and clear to auscultation bilaterally GI Common normals: Normal to inspection, nondistended, normoactive bowel sounds present, soft to palpation, non-tender and no hepatosplenomegaly Extremity Right lower extremity: ankle joint (Ulcer over heel - foul smelling with purulent discharge) Left lower extremity: ankle joint (Ulcer over heel - foul smelling with purulent discharge) Neuro Common normals: oriented x3 Speech: abnormal speech (Limited, can speak few words) Gait (neuro): spastic hemiparesis Motor exam: strength abnormal (0/5 b/u UE and LE) Other: Spastic paresis of UE and LE Psych Common normals: mental status grossly normal, denies homicidal ideation and denies suicidal ideation Results Labs Labs: Short CBC 02/14/23 02/15/23 Range/Units 18:53 03:59 WBC 23.5 H 27.7 H (4.0-11.0) 10^3/uL Hgb 12.5 L 10.7 L (14.0-18.0) g/dL Hct 39.0 L 34.1 L (42.0-54.0) % Plt Count 409 347 (150-450) 10^3/uL BMP 02/14/23 02/15/23 18:53 03:59 Sodium 140 140 Potassium 4.8 4.6 Chloride 104 105 Carbon Dioxide 26.3 26.4 BUN 23.0 H 22.0 H Creatinine 1.22 0.97 Glucose 154 H 115 H Calcium 9.0 8.8 Cardiac Enzymes 02/14/23 Range/Units 18:53 Total Creatine Kinase 369 H* (39-308) U/L Liver Function 02/14/23 02/15/23 Range/Units 18:53 03:59 Total Bilirubin 0.2 0.4 (0.2-1.0) mg/dL AST 27 24 (15-37) U/L ALT 24 21 (16-63) U/L Alkaline Phosphatase 84 64 (46-116) U/L Albumin 2.7 L 2.2 L (3.4-5.0) g/dL Urine 02/14/23 Range/Units 17:00 Urine Color Lt. yellow (YELLOW) Urine Clarity Clear (CLEAR) Urine pH 6.0 (5.0-9.0) Ur Specific Creole 1.020 (1.005-1.025) Urine Protein Negative (NEG/TRACE) mg/dL Urine Glucose (UA) Negative (NEGATIVE) mg/dL ABG ABG results: 02/14/23 02/14/23 02/15/23 00:16 19:35 09:50 ABG pH 7.377 7.286 L* 7.412 ABG pCO2 46.1 H 54.5 H* 45.4 H ABG pO2 79.1 L 116.0 H 72.7 L ABG HCO3 27.1 H 25.9 28.9 H ABG O2 Saturation 96.5 97.9 96.0 ABG Base Excess 1.9 -0.7 4.2 H Assessment and Plan Assessment and Plan (1) Aspiration pneumonia: Assessment and Plan: Episode of aspiration resulting in acute resp failure with hypoxia -required endotracheal intubated and was on ventilator until this morning. Extubated today and currently on 2 L O2 via NC with no evidence of resp distress. CXR no evidence of consolidation but suspect its likely too soon. On broad spectrum abx - Vancomycin/Levaquin/Flagyl Qualifiers: Aspiration pneumonia type: due to gastric secretions Laterality: unspecified laterality Lung location: unspecified part of lung Qualified Code(s): J69.0 - Pneumonitis due to inhalation of food and vomit (2) Metabolic encephalopathy: Assessment and Plan: P/w AMS - was comatosed with GCS of 3. Now back to his baseline CTH no acute intracranial pathology. (3) Osteomyelitis of ankle: Assessment and Plan: b/l OM -foul smelling/purulent discharge. Small, about the size of a quarter. On IV abx. Consulted Podiatry. Will need deridement. (4) Sepsis: Assessment and Plan: HR > 90, RR > 20, WBC > 20K Suspect Aspiration PNA and/or OM of his feet b/l as the source. On IV vancomycin/Levaquin/flagyl. Stable hemodynamics now. C/w IVF. F/u cx. Qualifiers: Sepsis type: sepsis due to unspecified organism Sepsis acute organ dysfunction status: with acute organ dysfunction Severe sepsis acute organ dysfunction type: encephalopathy (5) Respiratory failure with hypoxia: Assessment and Plan: Was intubated in ED for resp failure and failure to protect his airway Extubated earlier today. 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 (8) Seizure disorder: Assessment and Plan: On depakote. Controlled with no report of recent breakthrough seizures. (9) Hypertension: Assessment and Plan: On clonidine and Amlodipine. Hold due to sepsis. On IVF. Monitor
[2023-02-15] MEDS: GABAPENTIN 300 MG CAPSULE 600 MG PO ×2 (12:23→21:12)
[2023-02-15] MEDS: METRONIDAZOLE/SODIUM CHLORIDE 500 MG/100 ML PREMIX 100 MG IV ×2 (12:23→18:31)
[2023-02-15 12:43] LABS: Glucometer 114 mg/dL (74-106)
[2023-02-15 12:55] LABS: Erythrocyte Sedimentation Rate 74 mm/hr (<=20)
[2023-02-15 13:02] LABS: C Reactive Protein 21.8 mg/dL (<=1.0)
[2023-02-15] MEDS: ACETAMINOPHEN 325 MG TABLET 650 MG PO (13:39)
[2023-02-15] MEDS: BACLOFEN 10 MG TABLET PO ×2 (13:40→21:13)
[2023-02-15] MEDS: DIVALPROEX SODIUM 125 MG TABLET.DR PO ×2 (13:59→21:12)
--- NOTE | 2023-02-15 14:32 | P.PODCN_ITS ---
[facility] - Podiatry Data of Consult Patient: known to practice within the last 3 years Consult date: 02/15/23 Requesting physician: Shaikh Tierra MD Primary care provider: ADELINA NIXON Consult Narrative Reason for consult: bilateral calcaneal ulcerations Narrative: patient is a 72-year-old gentleman seen in patient today with past medical history significant for acute kidney failure, anxiety, benign prostatic hypertrophy, cognitive deficit, congestive heart failure, chronic obstructive pulmonary disease, dementia, GERD, hyperlipidemia, hypertension, hypothyroidism, quadriplegic, seizure disorder, type 2 diabetes, history of traumatic brain injury, history of urinary tract infections seen for bilateral calcaneal ulc erations. Patient is relatively unresponsive during questioning today does not give any history. he was last seen in our clinic 02/06/23 her ulcers seem to be somewhat stagnant with increased depth despite offloading and Santyl dressing changes. I did speak with his family member Migue who I was told is his power of civil rights attorney to discuss possible treatment. cc:: CC: Shaikh Tierra MD Review of Systems ROS Status of ROS unobtainable due to mental status [facility] Medical History (Updated 02/15/23 @ 12:24 by Shaikh Tierra MD) Surgical History (Updated 02/15/23 @ 12:16 by Shaikh Tierra MD) Social History (Updated 02/15/23 @ 12:17 by Shaikh Tierra MD) Within the past year, how often did you have a drink containing alcohol: never Score interpretation: A score less than 4 is consistent with normal alcohol consumption. Smoking status: Never smoker Non-prescribed substance use: denies use Exam Narrative Exam Narrative: dermatological: Full-thickness ulcerations to bilateral heels left worse than right, necrotic and fibrous bases, exposed Achilles tendon and positive probe to bone bilaterally, no purulence, no erythema, no edema no other open lesions noted Skin spelled and supple No redness Vascular: Pulses poorly palpable Capillary refill intact No edema No erythema Nerve: Unable to be tested secondary to mental status but documented quadriplegic muscular skeletal Unable to test secondary to mental status but documented quadriplegic equinovarus contractures noted imaging: Emergency room ordered calcaneal x-rays which the left does demonstrate very subtle changes on the calcaneal axial view which could be secondary to bone and laboratory status and osteopenia versus early stages of ostitis No cortical breaks or cortical erosions noted on the right Low concern for osteomyelitis based on these images although his ulcers do probe to bone I would recommend obtaining MRI for further evaluation of infection Constitutional Vital Signs, click to edit/add: Last Vital Signs Temp 100.8 F H 02/15/23 13:36 Pulse 91 H 02/15/23 14:00 Resp 16 02/15/23 13:36 BP 92/50 L 02/15/23 13:36 Pulse Ox 96 02/15/23 14:00 O2 Del Method Nasal Cannula 02/15/23 13:36 O2 Flow Rate 4 02/15/23 13:36 FiO2 40 02/15/23 12:00 Assessment and Plan Assessment and Plan (1) Aspiration pneumonia: Assessment and Plan: Episode of aspiration resulting in acute resp failure with hypoxia -required endotracheal intubated and was on ventilator until this morning. Extubated today and currently on 2 L O2 via NC with no evidence of resp distress. CXR no evidence of consolidation but suspect its likely too soon. On broad spectrum abx - Vancomycin/Levaquin/Flagyl Qualifiers: Aspiration pneumonia type: due to gastric secretions Laterality: unspecified laterality Lung location: unspecified part of lung Qualified Code(s): J69.0 - Pneumonitis due to inhalation of food and vomit (2) Metabolic encephalopathy: Assessment and Plan: P/w AMS - was comatosed with GCS of 3. Now back to his baseline CTH no acute intracranial pathology. (3) Osteomyelitis of ankle: Assessment and Plan: b/l OM -foul smelling/purulent discharge. Small, about the size of a quarter. On IV abx. Consulted Podiatry. Will need deridement. (4) Sepsis: Assessment and Plan: HR > 90, RR > 20, WBC > 20K Suspect Aspiration PNA and/or OM of his feet b/l as the source. On IV vancomycin/Levaquin/flagyl. Stable hemodynamics now. C/w IVF. F/u cx. Qualifiers: Sepsis type: sepsis due to unspecified organism Sepsis acute organ dysfunction status: with acute organ dysfunction Severe sepsis acute organ dysfunction type: encephalopathy (5) Respiratory failure with hypoxia: Assessment and Plan: Was intubated in ED for resp failure and failure to protect his airway Extubated earlier today. 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 (8) Seizure disorder: Assessment and Plan: On depakote. Controlled with no report of recent breakthrough seizures. (9) Hypertension: Assessment and Plan: On clonidine and Amlodipine. Hold due to sepsis. On IVF. Monitor Plan assessment: Left calcaneal ulceration Right calcaneal ulceration Quadriplegic plan: Patient seen and evaluated Physical exam findings reviewed with hospitalist team and family member who is the power of civil rights attorney labs reviewed, WBC of 27.7, CRP of 21.8, ESR of seventy-four After verbal consent was obtained from his power of civil rights attorney I did debrided his ulcers down to and including subcutaneous tissue without incident. dressings included Santyl, 4 x 4 gauze, ABDs and Kerlix I recommend Santyl with dry dressings daily I discussed with his hospitalist team that I have low suspicion that the calcaneal ulcers are causing his elevated inflammatory markers and white count There is bacteria noted on his UA which likely could be another reason for his infection concerns If his labs continue to worsen I did discuss obtaining an MRI for further e valuation of calcaneal osteomyelitis. This will likely need to be treated with a partial calcanectomy We will await to see how he responds to antibiotics We will follow with his family can call for questions or concerns We'll see him on an outpatient wound center in 1-2 weeks from discharge
--- NOTE | 2023-02-15 16:32 | CM.NOTE ---
Contacted pt's son Migue, pt's guardian for update on pt. Migue would like all information to come through him or notifications to be given to him. Updated RN on Migue as being pt's guardian.
[2023-02-15 16:44] LABS: Glucometer 101 mg/dL (74-106)
[2023-02-15] MEDS: 0.9 % SODIUM CHLORIDE 1,000 ML 1000 ML IV (16:55)
[2023-02-15] MEDS: LACTATED RINGER'S SOLUTION 1,000 ML 150 ML IV ×2 (17:58→23:01)
[2023-02-15] MEDS: LEVOFLOXACIN IN DEXTROSE 5 % 750 MG/150 ML IV.SOLN 100 MG IV (21:12)
[2023-02-15] MEDS: QUETIAPINE FUMARATE 25 MG TABLET 75 MG PO (21:13)
[2023-02-15 21:17] LABS: Glucometer 96 mg/dL (74-106)
[2023-02-16] VITALS (116 sets, daily range): BP systolic 78–161; BP diastolic 44–88; PULSE 67–201; RESP 13–39; TEMP 36.7–37.3; O2SAT 86–98
[2023-02-16 01:20] LABS: A. calcoaceticus-baumannii Cpx NOT DETECTED (NOT DETECTE); Bacteroides fragilis NOT DETECTED (NOT DETECTE); Candida albicans NOT DETECTED (NOT DETECTE); Candida auris NOT DETECTED (NOT DETECTE); Candida glabrata NOT DETECTED (NOT DETECTE); Candida krusei NOT DETECTED (NOT DETECTE); Candida parapsilosis NOT DETECTED (NOT DETECTE); Candida tropicalis NOT DETECTED (NOT DETECTE); Cryptococcus neoformans/gattii NOT DETECTED (NOT DETECTE); Enterobacter cloacae complex NOT DETECTED (NOT DETECTE); Enterobacterales NOT DETECTED (NOT DETECTE); Enterococcus faecalis NOT DETECTED (NOT DETECTE); Enterococcus faecium NOT DETECTED (NOT DETECTE); Haemophilus influenzae NOT DETECTED (NOT DETECTE); Klebsiella aerogenes NOT DETECTED (NOT DETECTE); Klebsiella pneumoniae group NOT DETECTED (NOT DETECTE); Listeria monocytogenes NOT DETECTED (NOT DETECTE); Neisseria meningitidis NOT DETECTED (NOT DETECTE); Proteus spp. NOT DETECTED (NOT DETECTE); Pseudomonas aeruginosa NOT DETECTED (NOT DETECTE); Salmonella spp. NOT DETECTED (NOT DETECTE); Serratia marcescens NOT DETECTED (NOT DETECTE); Staphylococcus epidermidis NOT DETECTED (NOT DETECTE); Staphylococcus lugdunensis NOT DETECTED (NOT DETECTE); Stenotrophomonas maltophilia NOT DETECTED (NOT DETECTE); Streptococcus agalactiae NOT DETECTED (NOT DETECTE); Streptococcus pneumoniae NOT DETECTED (NOT DETECTE); Streptococcus pyogenes NOT DETECTED (NOT DETECTE); Streptococcus spp. NOT DETECTED (NOT DETECTE)
[2023-02-16 02:34] LABS: Staphylococcus spp. DETECTED (NOT DETECTE)
[2023-02-16] MEDS: METRONIDAZOLE/SODIUM CHLORIDE 500 MG/100 ML PREMIX 100 MG IV ×3 (04:04→18:00)
[2023-02-16 04:36] LABS: Basophils Absolute Auto 0.1 10^3/uL (0.0-0.1); Basophils Percent Auto 0.4 % (0.2-2.0); Eosinophils Absolute Auto 0.2 10^3/uL (0.0-0.7); Eosinophils Percent Auto 0.9 % (0.9-7.0); Hematocrit 28.1 % (42.0-54.0); Hemoglobin 9.2 g/dL (14.0-18.0); Immature Granulocytes Abs Auto 0.17 10^3/uL (0.00-0.03); Immature Granulocytes Pct Auto 0.7 % (0.0-0.5); Lymphocytes Absolute Auto 2.2 10^3/uL (1.2-3.8); Lymphocytes Percent Auto 8.9 % (20.5-60.0); Mean Corpuscular HGB Conc 32.7 g/dL (29.9-35.2); Mean Corpuscular Hemoglobin 30.8 pg (25.9-34.0); Mean Platelet Volume 9.4 fL (9.5-13.5); Monocytes Absolute Auto 2.5 10^3/uL (0.3-0.8); Monocytes Percent Auto 10.1 % (1.7-12.0); Neutrophils Absolute Auto 19.5 10^3/uL (1.4-6.5); Platelet Count 326 10^3/uL (150-450); Red Blood Count 2.99 10^6/uL (4.70-6.10); Red Cell Distribution Width 13.8 % (11.0-15.0); White Blood Count 24.6 10^3/uL (4.0-11.0)
[2023-02-16 05:11] LABS: Alanine Aminotransferase 17 U/L (16-63); Albumin Globulin Ratio 0.5; Alkaline Phosphatase 63 U/L (46-116); Anion Gap 9.8; Aspartate Amino Transferase 15 U/L (15-37); BUN Creatinine Ratio 21.1; Bilirubin Total 0.3 mg/dL (0.2-1.0); Calcium 8.7 mg/dL (8.5-10.1); Carbon Dioxide 26.9 mmol/L (21.0-32.0); Chloride 104 mmol/L (98-107); Estimated GFR (African America >60 (>=60); Estimated GFR (Non-African Ame >60 (>=60); Globulin 4.1 g/dL; Glucose 95 mg/dL (74-106); Potassium 3.7 mmol/L (3.5-5.1); Sodium 137 mmol/L (136-145); Total Protein 6.1 g/dL (6.4-8.2)
[2023-02-16 07:27] LABS: Glucometer 98 mg/dL (74-106)
--- NOTE | 2023-02-16 08:05 | XR_ITS ---
The [address] [address] Patient Name: SHELBY VALERIO MRN: [id number] date: 1950 Sex: M Assigned Patient Location: ICU Current Patient Location: ICU Accession/Order Number: [id number] Exam Date: 02/16/2023 08:40 Report Date: 02/16/2023 08:56 At the request of: SHAIKH BRAD Procedure: XR chest 1V EXAM: XR chest 1V HISTORY: sob COMPARISON: 02/15/2023 TECHNIQUE: AP portable FINDINGS: LUNGS: Mild diffuse right and left basilar opacities. Interval extubation VASCULATURE: No increased pulmonary vasculature. PLEURA: No pneumothorax. Blunting of the left lateral costophrenic angle suggests a small pleural effusion CARDIAC: No cardiomegaly or cardiac silhouette abnormality. MEDIASTINUM: No visible mass or adenopathy. BONES: No fracture or visible bone lesion. OTHER: Interval removal of the enteric tube. XR/XR chest 1V IMPRESSION: Mild bilateral parenchymal infiltrates, consider pulmonary edema Electronically authenticated by: RENEE BARBOZA Date: 02/16/2023 08:56
[2023-02-16] MEDS: VANCOMYCIN HCL 1,250 MG in 0.9 % SODIUM CHLORIDE 250 ML 250 MG IV ×2 (09:05→21:08)
[2023-02-16 10:05] LABS: Magnesium 1.9 mg/dL (1.8-2.4)
[2023-02-16 10:07] LABS: Troponin I High Sensitivity 104.1 pg/mL (4.0-76.1)
--- NOTE | 2023-02-16 10:11 | CM.NOTE ---
Rounding with Dr. Mayorga and RN Argenis. Discussing some quality assurance monitor chassis strips. Pt. is following commands, sticking tounge out when Dr asks. Plan to return to [facility] upon discharge.
[2023-02-16 10:40] LABS: Glucometer 100 mg/dL (74-106)
--- NOTE | 2023-02-16 11:10 | PM.IMPN1 ---
Progress Note: A&P Assessment and Plan (1) SVT (supraventricular tachycardia): Assessment and Plan: Breif episodes and reverts to NSR. Added Lopressor. Recent 2D ECHO in 10/13 - normal EF Unsure if he is a good candidate for stroke px. Will d/w patient POA. (2) Aspiration pneumonia: Assessment and Plan: B/l infiltrates on CXR. Being treated for Aspiration PNA. F/u blood and sputum cx. Qualifiers: Aspiration pneumonia type: due to gastric secretions Laterality: unspecified laterality Lung location: unspecified part of lung Qualified Code(s): J69.0 - Pneumonitis due to inhalation of food and vomit (3) Metabolic encephalopathy: Assessment and Plan: Back to baseline. CTH - no acute pathology. (4) Sepsis: Assessment and Plan: Was hypotensive last evening and required IV fluids. Stable Hemodynamics now. C/w IVF hydration as poor PO intake. Qualifiers: Sepsis type: sepsis due to unspecified organism Sepsis acute organ dysfunction status: with acute organ dysfunction Severe sepsis acute organ dysfunction type: encephalopathy (5) Dysphagia: Assessment and Plan: On pureed diet but there is concern for aspiration with pureed diet too. Speech evaluation ordered. If sig aspiration, might need PEG tube. Qualifiers: Dysphagia type: oropharyngeal phase Qualified Code(s): R13.12 - Dysphagia, oropharyngeal phase (6) Osteomyelitis of ankle: Assessment and Plan: Outpatient f/u as per Podiatry. (7) Respiratory failure with hypoxia: Assessment and Plan: Down to 3 L O2 via NC. Wean off as tolerated. 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 Bed bound (10) Seizure disorder: Assessment and Plan: post traumatic. On Valproate.. (11) Hypertension: Assessment and Plan: on amlodipine and clonidine at home. Keep on holding his meds Started on Lopressor. Internal Medicine - PN: Subj Subjective Interval history: Seen and examined. Hypotensive last night and responded to IV fluids. Brief periods of SVT -reverts to NSR w/o any intervention. Nursing raised concern about his ability to safely eat oral diet due to dysphagia. Exam Constitutional Vital Signs, click to edit/add: Last Vital Signs Temp 98.2 F 02/16/23 11:00 Pulse 89 07/27/23 10:40 Resp 20 02/16/23 10:40 BP 129/72 H 02/16/23 10:39 Pulse Ox 96 02/16/23 10:40 O2 Del Method Nasal Cannula 02/16/23 11:00 O2 Flow Rate 3 02/16/23 11:00 FiO2 40 02/16/23 01:00 Documenting provider has reviewed patient's vital signs: yes Common normals: no apparent distress, average body habitus and oriented x3 HENMT Common normals: normocephalic and head/scalp atraumatic Eye Common normals: conjunctivae normal and no scleral icterus Respiratory Common normals: normal respiratory effort and no use of accessory muscles Other: Rhonchi b/l, upper airway secretions GI Common normals: Normal to inspection, nondistended, normoactive bowel sounds present, soft to palpation, non-tender and no hepatosplenomegaly Extremity Right lower extremity: ankle joint (Ulcer over heel - foul smelling with purulent discharge) Left lower extremity: ankle joint (Ulcer over heel - foul smelling with purulent discharge) Neuro Common normals: oriented x3 Speech: abnormal speech (Limited, can speak few words) Gait (neuro): spastic hemiparesis Motor exam: strength abnormal (0/5 b/u UE and LE) Other: Spastic paresis of UE and LE Psych Common normals: mental status grossly normal, denies homicidal ideation and denies suicidal ideation Internal Medicine - PN: Obj Da Labs Labs: Laboratory Results - last 24 hr 02/15/23 02/15/23 02/15/23 12:32 12:41 16:34 WBC RBC Hgb Hct MCV MCH MCHC RDW Plt Count MPV Neut % (Auto) Lymph % (Auto) [place] % (Auto) Eos % (Auto) Baso % (Auto) Neut # (Auto) Lymph # (Auto) [place] # (Auto) Eos # (Auto) Baso # (Auto) Abs Immat Gran (auto) Imm/Tot Granulo (auto) ESR 74 H Sodium Potassium Chloride Carbon Dioxide Anion Gap BUN Creatinine Est GFR ( Amer) Est GFR (Non-Af Amer) BUN/Creatinine Ratio Glucose Calcium Magnesium Total Bilirubin AST ALT Alkaline Phosphatase Troponin I High Sens C-Reactive Protein 21.8 H Total Protein Albumin Globulin Albumin/Globulin Ratio Barry H. influenza (PCR) A.calcoaceticus-baumannii cmplx PCR Bacteroides fragilis Mari albicans (PCR) Mari auris (PCR) C. glabrata (PCR) C. krusei (PCR) C. parapsilosis (PCR) C. tropicalis (PCR) C. neoform/gattii (PCR) Enterobacterales (PCR) E. cloacae complex PCR Enterococc faecalis PCR Enterococc faecium PCR E. coli (PCR) Klebsiella aerogenes (PCR) Klebsiella oxytoca PCR K. pneumoniae group (PCR) List. monocytogenes PCR N. meningitidis (PCR) Proteus spp. (copies/mL) Salmonella spp. (PCR) Serratia marcescens PCR Staphylococcus sp PCR Staph aureus (PCR) mecA/C & MREJ Resist Gene mecA/C-Methicil Resis Gene mcr-1 Colistin Res Gene PCR Staph epidermidis (PCR) Staph lugdunensis (TEM-PCR) S. maltophilia (PCR) Streptococcus sp PCR Strep agalactiae (PCR) Strep pneumoniae (PCR) S. pyogenes (PCR) P. aeruginosa (PCR) Tushar/B-Vanco Res Genes blaIMP Car res Gene PCR KPC (blaKPC) Detect PCR NDM (blaNDM) Detect PCR OXA-48 Carbapenem Resis Gene (PCR) blaVIM Car Res Gene PCR CTX-M ESBL (PCR) POC Glucose 114 H 101 02/15/23 02/16/23 02/16/23 21:15 00:00 03:50 WBC 24.6 H RBC 2.99 L Hgb 9.2 L Hct 28.1 L MCV 94.0 MCH 30.8 MCHC 32.7 RDW 13.8 Plt Count 326 MPV 9.4 L Neut % (Auto) 79.0 H Lymph % (Auto) 8.9 L [place] % (Auto) 10.1 Eos % (Auto) 0.9 Baso % (Auto) 0.4 Neut # (Auto) 19.5 H Lymph # (Auto) 2.2 [place] # (Auto) 2.5 H Eos # (Auto) 0.2 Baso # (Auto) 0.1 Abs Immat Gran (auto) 0.17 H Imm/Tot Granulo (auto) 0.7 H ESR Sodium 137 Potassium 3.7 Chloride 104 Carbon Dioxide 26.9 Anion Gap 9.8 BUN 15.0 Creatinine 0.71 Est GFR ( Amer) >60 Est GFR (Non-Af Amer) >60 BUN/Creatinine Ratio 21.1 Glucose 95 Calcium 8.7 Magnesium 1.9 Total Bilirubin 0.3 AST 15 ALT 17 Alkaline Phosphatase 63 Troponin I High Sens 104.1 H* C-Reactive Protein Total Protein 6.1 L Albumin 2.0 L Globulin 4.1 Albumin/Globulin Ratio 0.5 Barry H. influenza (PCR) Not detected A.calcoaceticus-baumannii cmplx PCR Not detected Bacteroides fragilis Not detected Mari albicans (PCR) Not detected Mari auris (PCR) Not detected C. glabrata (PCR) Not detected C. krusei (PCR) Not detected C. parapsilosis (PCR) Not detected C. tropicalis (PCR) Not detected C. neoform/gattii (PCR) Not detected Enterobacterales (PCR) Not detected E. cloacae complex PCR Not detected Enterococc faecalis PCR Not detected Enterococc faecium PCR Not detected E. coli (PCR) Not detected Klebsiella aerogenes (PCR) Not detected Klebsiella oxytoca PCR Not detected K. pneumoniae group (PCR) Not detected List. monocytogenes PCR Not detected N. meningitidis (PCR) Not detected Proteus spp. (copies/mL) Not detected Salmonella spp. (PCR) Not detected Serratia marcescens PCR Not detected Staphylococcus sp PCR Detected A* Staph aureus (PCR) Not detected mecA/C & MREJ Resist Gene Not applicable mecA/C-Methicil Resis Gene Not applicable mcr-1 Colistin Res Gene PCR Not applicable Staph epidermidis (PCR) Not detected Staph lugdunensis (TEM-PCR) Not detected S. maltophilia (PCR) Not detected Streptococcus sp PCR Not detected Strep agalactiae (PCR) Not detected Strep pneumoniae (PCR) Not detected S. pyogenes (PCR) Not detected P. aeruginosa (PCR) Not detected Tushar/B-Vanco Res Genes Not applicable blaIMP Car res Gene PCR Not applicable KPC (blaKPC) Detect PCR Not applicable NDM (blaNDM) Detect PCR Not applicable OXA-48 Carbapenem Resis Gene (PCR) Not applicable blaVIM Car Res Gene PCR Not applicable CTX-M ESBL (PCR) Not applicable POC Glucose 96 02/16/23 02/16/23 07:25 10:37 WBC RBC Hgb Hct MCV MCH MCHC RDW Plt Count MPV Neut % (Auto) Lymph % (Auto) [place] % (Auto) Eos % (Auto) Baso % (Auto) Neut # (Auto) Lymph # (Auto) [place] # (Auto) Eos # (Auto) Baso # (Auto) Abs Immat Gran (auto) Imm/Tot Granulo (auto) ESR Sodium Potassium Chloride Carbon Dioxide Anion Gap BUN Creatinine Est GFR ( Amer) Est GFR (Non-Af Amer) BUN/Creatinine Ratio Glucose Calcium Magnesium Total Bilirubin AST ALT Alkaline Phosphatase Troponin I High Sens C-Reactive Protein Total Protein Albumin Globulin Albumin/Globulin Ratio Barry H. influenza (PCR) A.calcoaceticus-baumannii cmplx PCR Bacteroides fragilis Mari albicans (PCR) Mari auris (PCR) C. glabrata (PCR) C. krusei (PCR) C. parapsilosis (PCR) C. tropicalis (PCR) C. neoform/gattii (PCR) Enterobacterales (PCR) E. cloacae complex PCR Enterococc faecalis PCR Enterococc faecium PCR E. coli (PCR) Klebsiella aerogenes (PCR) Klebsiella oxytoca PCR K. pneumoniae group (PCR) List. monocytogenes PCR N. meningitidis (PCR) Proteus spp. (copies/mL) Salmonella spp. (PCR) Serratia marcescens PCR Staphylococcus sp PCR Staph aureus (PCR) mecA/C & MREJ Resist Gene mecA/C-Methicil Resis Gene mcr-1 Colistin Res Gene PCR Staph epidermidis (PCR) Staph lugdunensis (TEM-PCR) S. maltophilia (PCR) Streptococcus sp PCR Strep agalactiae (PCR) Strep pneumoniae (PCR) S. pyogenes (PCR) P. aeruginosa (PCR) Tushar/B-Vanco Res Genes blaIMP Car res Gene PCR KPC (blaKPC) Detect PCR NDM (blaNDM) Detect PCR OXA-48 Carbapenem Resis Gene (PCR) blaVIM Car Res Gene PCR CTX-M ESBL (PCR) POC Glucose 98 100 Urinary Catheter Management Urinary Catheter Management Urethral: Cath placed during this visit: yes Urethral indwelling: Yes Reason for continuing: end of life care Insertion date: 02/14/23 Insertion time: 18:43
[2023-02-16] MEDS: METOPROLOL TARTRATE 25 MG TABLET PO ×2 (11:18→20:50)
--- NOTE | 2023-02-16 11:46 | CM.NOTE ---
Updated Lila at [facility] on pt's condition and faxed updated clinical.
[2023-02-16] MEDS: LACTATED RINGER'S SOLUTION 1,000 ML 100 ML IV (13:07)
[2023-02-16 16:06] LABS: Glucometer 93 mg/dL (74-106)
[2023-02-16 16:30] LABS: Troponin I High Sensitivity 88.1 pg/mL (4.0-76.1)
--- NOTE | 2023-02-16 16:43 | PM.PN ---
Progress Note: Subjective Subjective Interval history: Hypotensive last night and responded to IV fluids & per nursinvg SVT up to 190 today. At bedside patient denied pain in his feet/legs Exam Narrative Exam Narrative: b/l heel ulcers which probe to bone. wound bases are fibrotic and mildly malodorous however no erythema whatsoever. No pus. No evidence of acute infection as findings are more consistent with chronic osteomyelitis Constitutional Vital Signs, click to edit/add: Last Vital Signs Temp 98.3 F 02/16/23 15:00 Pulse 81 02/16/23 16:00 Resp 26 H 02/16/23 15:03 BP 131/74 02/16/23 15:03 Pulse Ox 95 02/16/23 15:03 O2 Del Method Nasal Cannula 02/16/23 15:00 O2 Flow Rate 2 02/16/23 15:00 FiO2 40 02/16/23 01:00 Progress Note: Objective Labs Labs: Short CBC 02/16/23 Range/Units 03:50 WBC 24.6 H (4.0-11.0) 10^3/uL Hgb 9.2 L (14.0-18.0) g/dL Hct 28.1 L (42.0-54.0) % Plt Count 326 (150-450) 10^3/uL BMP 02/16/23 03:50 Sodium 137 Potassium 3.7 Chloride 104 Carbon Dioxide 26.9 BUN 15.0 Creatinine 0.71 Glucose 95 Calcium 8.7 Liver Function 02/16/23 Range/Units 03:50 Total Bilirubin 0.3 (0.2-1.0) mg/dL AST 15 (15-37) U/L ALT 17 (16-63) U/L Alkaline Phosphatase 63 (46-116) U/L Albumin 2.0 L (3.4-5.0) g/dL Progress Note: A&P Assessment and Plan (1) SVT (supraventricular tachycardia): (2) Aspiration pneumonia: Qualifiers: Aspiration pneumonia type: due to gastric secretions Laterality: unspecified laterality Lung location: unspecified part of lung Qualified Code(s): J69.0 - Pneumonitis due to inhalation of food and vomit (3) Metabolic encephalopathy: (4) Sepsis: Qualifiers: Sepsis acute organ dysfunction status: with acute organ dysfunction Sepsis type: sepsis due to unspecified organism Severe sepsis acute organ dysfunction type: encephalopathy (5) Dysphagia: Qualifiers: Dysphagia type: oropharyngeal phase Qualified Code(s): R13.12 - Dysphagia, oropharyngeal phase (6) Osteomyelitis of ankle: Onset Date: Unknown Assessment and Plan: Dressings changed and should be changed daily with santyl. Emphasize off loading with bunny boots and pillow behind legs. Currently on vanco and levofloxacin which should cover the Proteus & Citrobactor recovered from wound swabs - although clinically no acute infection the bacteria may be colonized on wounds chronically. Antibiotics and santyl (enzymatic debridement) should help decrease bioburden. Further Dr. Crenshaw performed surgical debridement at bedside. This scenario is consistent with chronic osteomyelitis and may ultimately require partial calcanectomy vs BKA. However, given patients current status foot surgery is not immediately necessary. MRI may be pursued as outpatient and will help determine extent of bone involvement. Patient should f/u within a week from d/c. Call with updates Qualifiers: Osteomyelitis type: other chronic Laterality: left Qualified Code(s): M86.672 - Other chronic osteomyelitis, left ankle and foot (7) Respiratory failure with hypoxia: (8) Benign prostate hyperplasia: (9) Traumatic brain injury: (10) Seizure disorder: (11) Hypertension: (12) Other chronic osteomyelitis, right ankle and foot: Onset Date: Unknown Assessment and Plan: see above - same plan for b/l heel ulcers/osteomyelitis Plan See above
[2023-02-16] MEDS: LEVOFLOXACIN IN DEXTROSE 5 % 750 MG/150 ML IV.SOLN 100 MG IV (20:50)
[2023-02-16] MEDS: ACETAMINOPHEN 325 MG TABLET 650 MG PO (20:54)
[2023-02-16] MEDS: DIVALPROEX SODIUM 125 MG TABLET.DR PO (21:03)
[2023-02-16] MEDS: BACLOFEN 10 MG TABLET PO (21:03)
[2023-02-16 21:07] LABS: Glucometer 87 mg/dL (74-106)
[2023-02-17] VITALS (33 sets, daily range): BP systolic 126–141; BP diastolic 68–78; PULSE 71–98; RESP 18–36; TEMP 36.7–37.5; O2SAT 90–97
[2023-02-17] MEDS: LACTATED RINGER'S SOLUTION 1,000 ML 100 ML IV ×2 (01:47→08:08)
[2023-02-17] MEDS: ENOXAPARIN SODIUM 40 MG/0.4 ML SYRINGE SUBQ (01:49)
[2023-02-17] MEDS: METRONIDAZOLE/SODIUM CHLORIDE 500 MG/100 ML PREMIX 100 MG IV ×2 (02:41→11:10)
[2023-02-17 05:31] LABS: Basophils Absolute Auto 0.1 10^3/uL (0.0-0.1); Basophils Percent Auto 0.5 % (0.2-2.0); Eosinophils Absolute Auto 0.1 10^3/uL (0.0-0.7); Eosinophils Percent Auto 0.7 % (0.9-7.0); Immature Granulocytes Abs Auto 0.14 10^3/uL (0.00-0.03); Immature Granulocytes Pct Auto 0.8 % (0.0-0.5); Lymphocytes Absolute Auto 1.6 10^3/uL (1.2-3.8); Lymphocytes Percent Auto 8.9 % (20.5-60.0); Mean Corpuscular HGB Conc 32.4 g/dL (29.9-35.2); Mean Corpuscular Hemoglobin 29.7 pg (25.9-34.0); Mean Corpuscular Volume 91.9 fL (80.0-94.0); Mean Platelet Volume 9.1 fL (9.5-13.5); Monocytes Absolute Auto 1.6 10^3/uL (0.3-0.8); Monocytes Percent Auto 8.6 % (1.7-12.0); Neutrophils Absolute Auto 14.8 10^3/uL (1.4-6.5); Neutrophils Percent Auto 80.5 % (43.0-75.0); Platelet Count 386 10^3/uL (150-450); Red Cell Distribution Width 13.2 % (11.0-15.0); White Blood Count 18.4 10^3/uL (4.0-11.0)
[2023-02-17 05:54] LABS: Alanine Aminotransferase 15 U/L (16-63); Albumin Globulin Ratio 0.4; Alkaline Phosphatase 71 U/L (46-116); Anion Gap 12.5; Aspartate Amino Transferase 18 U/L (15-37); BUN Creatinine Ratio 16.7; Bilirubin Total 0.3 mg/dL (0.2-1.0); Calcium 8.9 mg/dL (8.5-10.1); Carbon Dioxide 25.9 mmol/L (21.0-32.0); Chloride 101 mmol/L (98-107); Estimated GFR (African America >60 (>=60); Estimated GFR (Non-African Ame >60 (>=60); Globulin 4.5 g/dL; Glucose 102 mg/dL (74-106); Potassium 3.4 mmol/L (3.5-5.1); Sodium 136 mmol/L (136-145); Total Protein 6.5 g/dL (6.4-8.2)
[2023-02-17] MEDS: METOPROLOL TARTRATE 25 MG TABLET PO (08:07)
[2023-02-17] MEDS: GABAPENTIN 300 MG CAPSULE 600 MG PO (08:07)
[2023-02-17 10:36] LABS: Vancomycin Trough 16.2 ug/mL (5.0-20.0)
[2023-02-17] MEDS: VANCOMYCIN HCL 1,250 MG in 0.9 % SODIUM CHLORIDE 250 ML 250 MG IV (10:45)
[2023-02-17 11:03] LABS: Glucometer 107 mg/dL (74-106)
[2023-02-17] MEDS: POTASSIUM CHLORIDE 10 MEQ ER TABLET 40 MEQ PO (11:07)
--- NOTE | 2023-02-17 13:31 | CM.NOTE ---
Rounds made with Dr. Mayorga, speaking with surgery relationship specialist about possible peg tube placement. Pt plan is [place] [facility] [place] [facility].
--- NOTE | 2023-02-17 13:35 | PM.IMPN1 ---
Progress Note: A&P Assessment and Plan (1) SVT (supraventricular tachycardia): Assessment and Plan: Brief episodes , 3 in total on 02/16/23 Lopressor 25 q12 added for it on 02/16/23 No recurrence since then. Remains in NSR. 2D ECHO from 10/13 - no sig cardiac structural abnormality. (2) Aspiration pneumonia: Assessment and Plan: B/l infiltrates on CXR. Being treated for Aspiration PNA. F/u blood and sputum cx. D/c IV vancomycin and Flagyl. C/w Levaquin for Community acquired PNA Qualifiers: Aspiration pneumonia type: due to gastric secretions Laterality: unspecified laterality Lung location: unspecified part of lung Qualified Code(s): J69.0 - Pneumonitis due to inhalation of food and vomit (3) Metabolic encephalopathy: Assessment and Plan: Back to baseline. CTH - no acute pathology. (4) Sepsis: Assessment and Plan: Resolved. Stable hemodynamics. Leukocytosis improving slowly Wound cx positive for proteus and citribacter. D/c flagyl and vancomycin Blood cx growing staph - suspect likely a contaminant. Await final ID or blood cx. Qualifiers: Sepsis type: sepsis due to unspecified organism Sepsis acute organ dysfunction status: with acute organ dysfunction Severe sepsis acute organ dysfunction type: encephalopathy (5) Dysphagia: Assessment and Plan: On pureed diet but there is concern for aspiration with pureed diet too. Poor PO intake. Not interested in eating. Will have speech eval today. Called his POA but was unable to get in touch with him and had to leave a voicemail Looks like he will need PEG tube placement for dysphagia, received adequate nutrition. Qualifiers: Dysphagia type: oropharyngeal phase Qualified Code(s): R13.12 - Dysphagia, oropharyngeal phase (6) Osteomyelitis of ankle: Onset Date: Unknown Assessment and Plan: Sec to proteus/citrobacter both sensitive to Levaquin D/c flagyl and Vancomycin Qualifiers: Osteomyelitis type: other chronic Laterality: left Qualified Code(s): M86.672 - Other chronic osteomyelitis, left ankle and foot (7) Respiratory failure with hypoxia: Assessment and Plan: on RA Now. 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 Bed bound (10) Seizure disorder: Assessment and Plan: post traumatic. On Valproate.. (11) Hypertension: Assessment and Plan: on amlodipine and clonidine at home. Keep on holding his meds Started on Lopressor. BP at goal Internal Medicine - PN: Subj Subjective Interval history: Seen and examined. No overnight events. Patient with poor PO intake, not interested in eating. Keeps food in his mouth and does not chew or swallow but sometimes, he would w/o any difficulty. Exam Constitutional Vital Signs, click to edit/add: Last Vital Signs Temp 98.7 F 02/17/23 05:00 Pulse 92 H 02/17/23 11:20 Resp 36 H 02/17/23 11:20 BP 132/68 02/17/23 05:00 Pulse Ox 91 L 02/17/23 10:46 O2 Del Method Room Air 02/17/23 10:46 O2 Flow Rate 2 02/17/23 05:12 FiO2 40 02/16/23 01:00 Documenting provider has reviewed patient's vital signs: yes Common normals: no apparent distress, average body habitus and oriented x3 HENMT Common normals: normocephalic and head/scalp atraumatic Eye Common normals: conjunctivae normal and no scleral icterus Respiratory Common normals: normal respiratory effort, no use of accessory muscles and clear to auscultation bilaterally GI Common normals: Normal to inspection, nondistended, normoactive bowel sounds present, soft to palpation, non-tender and no hepatosplenomegaly Extremity Right lower extremity: ankle joint (Ulcer over heel ) Left lower extremity: ankle joint (Ulcer over heel) Neuro Common normals: oriented x3 Speech: abnormal speech (Limited, can speak few words) Gait (neuro): spastic hemiparesis Motor exam: strength abnormal (0/5 b/u UE and LE) Other: Spastic paresis of UE and LE Psych Common normals: mental status grossly normal, denies homicidal ideation and denies suicidal ideation Internal Medicine - PN: Obj Da Labs Labs: Laboratory Results - last 24 hr 02/16/23 02/16/23 02/16/23 15:54 16:04 21:05 WBC RBC Hgb Hct MCV MCH MCHC RDW Plt Count MPV Neut % (Auto) Lymph % (Auto) [place] % (Auto) Eos % (Auto) Baso % (Auto) Neut # (Auto) Lymph # (Auto) [place] # (Auto) Eos # (Auto) Baso # (Auto) Abs Immat Gran (auto) Imm/Tot Granulo (auto) Sodium Potassium Chloride Carbon Dioxide Anion Gap BUN Creatinine Est GFR ( Amer) Est GFR (Non-Af Amer) BUN/Creatinine Ratio Glucose Calcium Total Bilirubin AST ALT Alkaline Phosphatase Troponin I High Sens 88.1 H* Total Protein Albumin Globulin Albumin/Globulin Ratio Vancomycin Trough POC Glucose 93 87 02/17/23 02/17/23 02/17/23 05:09 09:06 11:01 WBC 18.4 H RBC 3.70 L Hgb 11.0 L Hct 34.0 L MCV 91.9 MCH 29.7 MCHC 32.4 RDW 13.2 Plt Count 386 MPV 9.1 L Neut % (Auto) 80.5 H Lymph % (Auto) 8.9 L [place] % (Auto) 8.6 Eos % (Auto) 0.7 L Baso % (Auto) 0.5 Neut # (Auto) 14.8 H Lymph # (Auto) 1.6 [place] # (Auto) 1.6 H Eos # (Auto) 0.1 Baso # (Auto) 0.1 Abs Immat Gran (auto) 0.14 H Imm/Tot Granulo (auto) 0.8 H Sodium 136 Potassium 3.4 L Chloride 101 Carbon Dioxide 25.9 Anion Gap 12.5 BUN 12.0 Creatinine 0.72 Est GFR ( Amer) >60 Est GFR (Non-Af Amer) >60 BUN/Creatinine Ratio 16.7 Glucose 102 Calcium 8.9 Total Bilirubin 0.3 AST 18 ALT 15 L Alkaline Phosphatase 71 Troponin I High Sens Total Protein 6.5 Albumin 2.0 L Globulin 4.5 Albumin/Globulin Ratio 0.4 Vancomycin Trough 16.2 POC Glucose 107 H Urinary Catheter Management Urinary Catheter Management Urethral: Cath placed during this visit: yes Urethral indwelling: Yes Reason for continuing: prolonged immobilization Insertion date: 02/14/23 Insertion time: 18:43
[2023-02-17 16:46] LABS: Glucometer 100 mg/dL (74-106)
[2023-02-17] MEDS: LEVOFLOXACIN IN DEXTROSE 5 % 750 MG/150 ML IV.SOLN 20 MG IV (22:04)
[2023-02-17 22:13] LABS: Glucometer 95 mg/dL (74-106)
[2023-02-18] VITALS (117 sets, daily range): BP systolic 125–167; BP diastolic 70–93; PULSE 62–114; RESP 0–45; TEMP 36.4–37.2; O2SAT 91–95
[2023-02-18] MEDS: LACTATED RINGER'S SOLUTION 1,000 ML 75 ML IV ×2 (02:20→13:13)
[2023-02-18] MEDS: ENOXAPARIN SODIUM 40 MG/0.4 ML SYRINGE SUBQ ×2 (02:21→22:51)
[2023-02-18 04:55] LABS: Basophils Absolute Auto 0.1 10^3/uL (0.0-0.1); Basophils Percent Auto 0.6 % (0.2-2.0); Eosinophils Absolute Auto 0.1 10^3/uL (0.0-0.7); Eosinophils Percent Auto 0.5 % (0.9-7.0); Hematocrit 33.7 % (42.0-54.0); Hemoglobin 11.3 g/dL (14.0-18.0); Immature Granulocytes Abs Auto 0.18 10^3/uL (0.00-0.03); Immature Granulocytes Pct Auto 1.2 % (0.0-0.5); Lymphocytes Absolute Auto 1.4 10^3/uL (1.2-3.8); Lymphocytes Percent Auto 9.5 % (20.5-60.0); Mean Corpuscular HGB Conc 33.5 g/dL (29.9-35.2); Mean Corpuscular Hemoglobin 29.5 pg (25.9-34.0); Mean Platelet Volume 9.3 fL (9.5-13.5); Monocytes Absolute Auto 1.3 10^3/uL (0.3-0.8); Neutrophils Absolute Auto 11.7 10^3/uL (1.4-6.5); Neutrophils Percent Auto 79.2 % (43.0-75.0); Platelet Count 422 10^3/uL (150-450); Red Blood Count 3.83 10^6/uL (4.70-6.10); Red Cell Distribution Width 13.3 % (11.0-15.0); White Blood Count 14.8 10^3/uL (4.0-11.0)
[2023-02-18 05:15] LABS: Alanine Aminotransferase 17 U/L (16-63); Albumin Globulin Ratio 0.5; Albumin Level 2.2 g/dL (3.4-5.0); Alkaline Phosphatase 70 U/L (46-116); Anion Gap 13.3; Aspartate Amino Transferase 16 U/L (15-37); BUN Creatinine Ratio 15.9; Bilirubin Total 0.2 mg/dL (0.2-1.0); Carbon Dioxide 25.2 mmol/L (21.0-32.0); Chloride 99 mmol/L (98-107); Estimated GFR (African America >60 (>=60); Estimated GFR (Non-African Ame >60 (>=60); Globulin 4.5 g/dL; Glucose 103 mg/dL (74-106); Potassium 3.5 mmol/L (3.5-5.1); Sodium 134 mmol/L (136-145); Total Protein 6.7 g/dL (6.4-8.2)
[2023-02-18 07:56] LABS: Glucometer 109 mg/dL (74-106)
--- NOTE | 2023-02-18 10:06 | P.PN_ITS ---
Progress Note: Subjective Subjective Interval history: Patient is awake and seems to answer questions appropriately. Denies pain. Denies difficulty breathing. Exam Constitutional Vital Signs, click to edit/add: Last Vital Signs Temp 97.7 F 02/18/23 07:26 Pulse 108 H 02/18/23 09:34 Resp 41 H 02/18/23 09:34 BP 137/93 H 02/18/23 09:34 Pulse Ox 94 L 02/18/23 09:20 O2 Del Method Room Air 02/18/23 08:12 O2 Flow Rate 2 02/18/23 07:26 FiO2 40 02/16/23 01:00 Documenting provider has reviewed patient's vital signs: yes Common normals: no apparent distress and average body habitus HENMT Common normals: normocephalic and head/scalp atraumatic Eye Common normals: conjunctivae normal and no scleral icterus Respiratory Common normals: normal respiratory effort, no use of accessory muscles and clear to auscultation bilaterally GI Common normals: Normal to inspection, nondistended, normoactive bowel sounds present, soft to palpation, non-tender and no hepatosplenomegaly Extremity Right lower extremity: ankle joint (Ulcer over heel ) Left lower extremity: ankle joint (Ulcer over heel) Neuro Common normals: oriented x3 Speech: abnormal speech (Limited, can speak few words) Gait (neuro): spastic hemiparesis Motor exam: strength abnormal (0/5 b/u UE and LE) Other: Spastic paresis of UE and LE Psych Common normals: mental status grossly normal, denies homicidal ideation and denies suicidal ideation Progress Note: Objective Labs Labs: Short CBC 02/18/23 Range/Units 03:55 WBC 14.8 H (4.0-11.0) 10^3/uL Hgb 11.3 L (14.0-18.0) g/dL Hct 33.7 L (42.0-54.0) % Plt Count 422 (150-450) 10^3/uL BMP 02/18/23 03:55 Sodium 134 L Potassium 3.5 Chloride 99 Carbon Dioxide 25.2 BUN 11.0 Creatinine 0.69 L Glucose 103 Calcium 9.0 Liver Function 02/18/23 Range/Units 03:55 Total Bilirubin 0.2 (0.2-1.0) mg/dL AST 16 (15-37) U/L ALT 17 (16-63) U/L Alkaline Phosphatase 70 (46-116) U/L Albumin 2.2 L (3.4-5.0) g/dL Progress Note: A&P Assessment and Plan (1) SVT (supraventricular tachycardia): (2) Aspiration pneumonia: Qualifiers: Aspiration pneumonia type: due to gastric secretions Laterality: unspecified laterality Lung location: unspecified part of lung Qualified Code(s): J69.0 - Pneumonitis due to inhalation of food and vomit (3) Metabolic encephalopathy: (4) Sepsis: Qualifiers: Sepsis acute organ dysfunction status: with acute organ dysfunction Sepsis type: sepsis due to unspecified organism Severe sepsis acute organ dysfunction type: encephalopathy (5) Dysphagia: Qualifiers: Dysphagia type: oropharyngeal phase Qualified Code(s): R13.12 - Dysphagia, oropharyngeal phase (6) Osteomyelitis of ankle: Onset Date: Unknown Qualifiers: Laterality: left Osteomyelitis type: other chronic Qualified Code(s): M86.672 - Other chronic osteomyelitis, left ankle and foot (7) Respiratory failure with hypoxia: (8) Benign prostate hyperplasia: (9) Traumatic brain injury: (10) Seizure disorder: (11) Hypertension: Plan (1) SVT (supraventricular tachycardia): Patient unable to take p.o. medications. We will change patient to IV Lopressor. As needed adenosine. (2) Aspiration pneumonia:-We will adjust antibiotics today. Sensitivity came back for cultures from foot. With high risk of future aspiration events patient could use a PEG tube. Discussed with patient's guardian And he would like to proceed with that (3) Metabolic encephalopathy:Back to baseline. CTH - no acute pathology. (4) fever, respiratory distress, tachycardia, uncontrolled hypertension now with hypotension and acute hypoxia with saturations less than 80 on admission with metabolic acidosis. Sepsis: Resolved. Stable hemodynamics.Leukocytosis improving slowly. Wound cx positive for proteus and citribacter. Sepsis acute organ dysfunction status:? - with sensitivities and need to cover aspiration pneumonia we will change patient to amikacin and clindamycin (5) Dysphagia:-Discussed with guardian and he would like to proceed at some point with PEG tube placement 6) Osteomyelitis of ankle:-Only intermediately sensitive to the Proteus. for Levaquin, so we will change patient to antibiotics as outlined above (7) Respiratory failure with hypoxia:-Improved, stable for now (8) Benign prostate hyperplasia:-Continue with current medications (9) Traumatic brain injury:-plan is to return back to [facility] (10) Seizure disorder: need to change patient to IV Depakote as he is unable to swallow pills (11) Hypertension:-adjusting medications for SVT. Lopressor likely to stabilizes Discussed CODE STATUS with guardian We will make patient DNR-CCA.
[2023-02-18] MEDS: METOPROLOL TARTRATE 5 MG/5 ML VIAL IVP ×3 (10:09→22:51)
[2023-02-18] MEDS: ORPHENADRINE 60 MG/ 2 ML VIAL IV (10:31)
[2023-02-18 11:32] LABS: Glucometer 110 mg/dL (74-106)
[2023-02-18] MEDS: CLINDAMYCIN PHOSPHATE/D5W 600 MG/50 ML PIGGYBACK 100 MG IV ×2 (11:45→17:27)
[2023-02-18] MEDS: SODIUM CHLORIDE 0.9% IV (12:15)
[2023-02-18] MEDS: AMIKACIN SULFATE IV (12:15)
[2023-02-18 15:14] LABS: Glucometer 117 mg/dL (74-106)
[2023-02-18] MEDS: ZIPRASIDONE MESYLATE 20 MG/ML VIAL 10 MG IM (22:54)
[2023-02-19] VITALS (48 sets, daily range): BP systolic 107–173; BP diastolic 62–91; PULSE 53–117; RESP 12–50; TEMP 36.1–36.7; O2SAT 92–96
[2023-02-19] MEDS: ORPHENADRINE 60 MG/ 2 ML VIAL IV ×3 (01:50→21:29)
[2023-02-19] MEDS: CLINDAMYCIN PHOSPHATE/D5W 600 MG/50 ML PIGGYBACK 100 MG IV ×5 (01:50→23:54)
[2023-02-19] MEDS: SODIUM CHLORIDE 0.9% IV ×2 (03:17→12:58)
[2023-02-19] MEDS: AMIKACIN SULFATE IV ×2 (03:17→12:58)
[2023-02-19 04:47] LABS: Troponin I High Sensitivity 40.8 pg/mL (4.0-76.1)
[2023-02-19] MEDS: LACTATED RINGER'S SOLUTION 1,000 ML 75 ML IV ×2 (06:23→18:00)
[2023-02-19] MEDS: METOPROLOL TARTRATE 5 MG/5 ML VIAL IVP ×4 (06:25→21:29)
[2023-02-19 08:48] LABS: Glucometer 100 mg/dL (74-106)
--- NOTE | 2023-02-19 10:49 | P.PN_ITS ---
Progress Note: Subjective Subjective Interval history: Patient is awake and seems to answer questions appropriately. Denies any new complaints today Exam Constitutional Vital Signs, click to edit/add: Last Vital Signs Temp 98.1 F 02/19/23 09:00 Pulse 80 02/19/23 09:55 Resp 22 02/19/23 09:00 BP 133/75 02/19/23 09:00 Pulse Ox 95 02/19/23 09:55 O2 Del Method Room Air 02/19/23 09:00 O2 Flow Rate 2 02/18/23 07:26 FiO2 40 02/16/23 01:00 Documenting provider has reviewed patient's vital signs: yes Common normals: no apparent distress and average body habitus HENMT Common normals: normocephalic and head/scalp atraumatic Eye Common normals: conjunctivae normal and no scleral icterus Respiratory Common normals: normal respiratory effort, no use of accessory muscles and clear to auscultation bilaterally GI Common normals: Normal to inspection, nondistended, normoactive bowel sounds present, soft to palpation, non-tender and no hepatosplenomegaly Extremity Right lower extremity: ankle joint (Ulcer over heel ) Left lower extremity: ankle joint (Ulcer over heel) Neuro Common normals: oriented x3 Speech: abnormal speech (Limited, can speak few words) Gait (neuro): spastic hemiparesis Motor exam: strength abnormal (0/5 b/u UE and LE) Other: Spastic paresis of UE and LE Psych Common normals: mental status grossly normal, denies homicidal ideation and denies suicidal ideation Progress Note: A&P Assessment and Plan (1) SVT (supraventricular tachycardia): (2) Aspiration pneumonia: Qualifiers: Aspiration pneumonia type: due to gastric secretions Laterality: unspecified laterality Lung location: unspecified part of lung Qualified Code(s): J69.0 - Pneumonitis due to inhalation of food and vomit (3) Metabolic encephalopathy: (4) Sepsis: Qualifiers: Sepsis acute organ dysfunction status: with acute organ dysfunction Sepsis type: sepsis due to unspecified organism Severe sepsis acute organ dysfunction type: encephalopathy (5) Dysphagia: Qualifiers: Dysphagia type: oropharyngeal phase Qualified Code(s): R13.12 - Dysphagia, oropharyngeal phase (6) Osteomyelitis of ankle: Onset Date: Unknown Qualifiers: Laterality: left Osteomyelitis type: other chronic Qualified Code(s): M86.672 - Other chronic osteomyelitis, left ankle and foot (7) Respiratory failure with hypoxia: (8) Benign prostate hyperplasia: (9) Traumatic brain injury: (10) Seizure disorder: (11) Hypertension: Plan (1) SVT (supraventricular tachycardia): Patient unable to take p.o. medications. We will change patient to IV Lopressor. As needed adenosine. -Stable with the addition of the Lopressor, continue to monitor (2) Aspiration pneumonia:-We will adjust antibiotics today. Sensitivity came back for cultures from foot. With high risk of future aspiration events patient could use a PEG tube. Discussed with patient's guardian And he would like to proceed with that -We will progress to that on likely Monday if patient remains stable.Consultation placed to surgery, Maintain current IV antibiotics (3) Metabolic encephalopathy:Back to baseline. [facility] - no acute pathology. (4) fever, respiratory distress, tachycardia, uncontrolled hypertension now with hypotension and acute hypoxia with saturations less than 80 on admission with metabolic acidosis. Sepsis: Resolved. Stable hemodynamics.Leukocytosis improving slowly. Wound cx positive for proteus and citribacter. Sepsis acute organ dysfunction status:? - with sensitivities and need to cover aspiration pneumonia we will change patient to amikacin and clindamycin (5) Dysphagia:-Discussed with guardian and he would like to proceed at some point with PEG tube placement 6) Osteomyelitis of ankle:-Only intermediately sensitive to the Proteus. for Levaquin, so we will change patient to antibiotics as outlined above (7) Respiratory failure with hypoxia:-Improved, stable for now (8) Benign prostate hyperplasia:-Continue with current medications (9) Traumatic brain injury:-plan is to return back to care center (10) Seizure disorder: need to change patient to IV Depakote as he is unable to swallow pills (11) Hypertension:-adjusting medications for SVT. Lopressor likely to stabilizes Discussed CODE STATUS with guardian We will make patient DNR-CCA.
[2023-02-19 11:35] LABS: Basophils Absolute Auto 0.1 10^3/uL (0.0-0.1); Basophils Percent Auto 1.1 % (0.2-2.0); Eosinophils Absolute Auto 0.2 10^3/uL (0.0-0.7); Eosinophils Percent Auto 1.5 % (0.9-7.0); Hematocrit 38.3 % (42.0-54.0); Hemoglobin 12.7 g/dL (14.0-18.0); Immature Granulocytes Abs Auto 0.25 10^3/uL (0.00-0.03); Immature Granulocytes Pct Auto 2.4 % (0.0-0.5); Lymphocytes Absolute Auto 1.9 10^3/uL (1.2-3.8); Lymphocytes Percent Auto 18.5 % (20.5-60.0); Mean Corpuscular HGB Conc 33.2 g/dL (29.9-35.2); Mean Corpuscular Hemoglobin 29.2 pg (25.9-34.0); Mean Platelet Volume 9.4 fL (9.5-13.5); Monocytes Absolute Auto 1.3 10^3/uL (0.3-0.8); Monocytes Percent Auto 12.3 % (1.7-12.0); Neutrophils Absolute Auto 6.7 10^3/uL (1.4-6.5); Neutrophils Percent Auto 64.2 % (43.0-75.0); Platelet Count 456 10^3/uL (150-450); Red Blood Count 4.35 10^6/uL (4.70-6.10); Red Cell Distribution Width 13.6 % (11.0-15.0); White Blood Count 10.4 10^3/uL (4.0-11.0)
[2023-02-19 11:37] LABS: Glucometer 102 mg/dL (74-106)
[2023-02-19 11:46] LABS: Alanine Aminotransferase 22 U/L (16-63); Albumin Globulin Ratio 0.5; Albumin Level 2.5 g/dL (3.4-5.0); Alkaline Phosphatase 77 U/L (46-116); Anion Gap 17.3; Aspartate Amino Transferase 27 U/L (15-37); BUN Creatinine Ratio 13.9; Bilirubin Total 0.3 mg/dL (0.2-1.0); Calcium 9.4 mg/dL (8.5-10.1); Carbon Dioxide 22.6 mmol/L (21.0-32.0); Chloride 102 mmol/L (98-107); Estimated GFR (African America >60 (>=60); Estimated GFR (Non-African Ame >60 (>=60); Globulin 4.7 g/dL; Glucose 77 mg/dL (74-106); Potassium 3.9 mmol/L (3.5-5.1); Sodium 138 mmol/L (136-145); Total Protein 7.2 g/dL (6.4-8.2)
[2023-02-19 16:46] LABS: Glucometer 101 mg/dL (74-106)
[2023-02-19 21:07] LABS: Glucometer 98 mg/dL (74-106)
[2023-02-19] MEDS: ZIPRASIDONE MESYLATE 20 MG/ML VIAL 10 MG IM (21:29)
[2023-02-19] MEDS: ENOXAPARIN SODIUM 40 MG/0.4 ML SYRINGE SUBQ (22:45)
[2023-02-20] VITALS (26 sets, daily range): BP systolic 113–159; BP diastolic 64–85; PULSE 53–96; RESP 18–27; TEMP 36.6–37.2; O2SAT 88–96
[2023-02-20] MEDS: AMIKACIN SULFATE IV ×2 (00:04→13:49)
[2023-02-20] MEDS: SODIUM CHLORIDE 0.9% IV ×2 (00:04→13:49)
--- NOTE | 2023-02-20 03:22 | PC.NURSE ---
pt desating 87-89% - applied 2lts oxygen NC
[2023-02-20 05:06] LABS: Basophils Absolute Auto 0.1 10^3/uL (0.0-0.1); Basophils Percent Auto 0.9 % (0.2-2.0); Eosinophils Absolute Auto 0.1 10^3/uL (0.0-0.7); Eosinophils Percent Auto 1.2 % (0.9-7.0); Immature Granulocytes Abs Auto 0.33 10^3/uL (0.00-0.03); Immature Granulocytes Pct Auto 2.9 % (0.0-0.5); Lymphocytes Absolute Auto 2.1 10^3/uL (1.2-3.8); Lymphocytes Percent Auto 18.3 % (20.5-60.0); Mean Corpuscular HGB Conc 34.2 g/dL (29.9-35.2); Mean Corpuscular Volume 87.8 fL (80.0-94.0); Mean Platelet Volume 8.6 fL (9.5-13.5); Monocytes Absolute Auto 1.4 10^3/uL (0.3-0.8); Monocytes Percent Auto 12.5 % (1.7-12.0); Neutrophils Absolute Auto 7.3 10^3/uL (1.4-6.5); Neutrophils Percent Auto 64.2 % (43.0-75.0); Platelet Count 469 10^3/uL (150-450); Red Blood Count 4.33 10^6/uL (4.70-6.10); Red Cell Distribution Width 13.5 % (11.0-15.0); White Blood Count 11.3 10^3/uL (4.0-11.0)
[2023-02-20 05:20] LABS: Anion Gap 13.5; BUN Creatinine Ratio 14.7; Calcium 8.9 mg/dL (8.5-10.1); Carbon Dioxide 25.7 mmol/L (21.0-32.0); Chloride 101 mmol/L (98-107); Estimated GFR (African America >60 (>=60); Estimated GFR (Non-African Ame >60 (>=60); Glucose 93 mg/dL (74-106); Potassium 3.2 mmol/L (3.5-5.1); Sodium 137 mmol/L (136-145)
--- NOTE | 2023-02-20 06:15 | XR_ITS ---
The [address] [address] Patient Name: SHELBY VALERIO MRN: [id number] date: 1950 Sex: M Assigned Patient Location: ICU Current Patient Location: ICU Accession/Order Number: [id number] Exam Date: 02/20/2023 06:30 Report Date: 02/20/2023 06:58 At the request of: SEVERO PATTERSON Procedure: XR chest 1V EXAM: XR chest 1V HISTORY: hypoxia COMPARISON: 02/16/2023 TECHNIQUE: AP portable FINDINGS: LUNGS: No significant pulmonary parenchymal abnormalities. VASCULATURE: No increased pulmonary vasculature. PLEURA: No pneumothorax, effusion, or pleural thickening. CARDIAC: No cardiomegaly or cardiac silhouette abnormality. MEDIASTINUM: No visible mass or adenopathy. BONES: No fracture or visible bone lesion. OTHER: Negative. XR/XR chest 1V IMPRESSION: No acute disease. Electronically authenticated by: RENEE BARBOZA Date: 02/20/2023 06:58
[2023-02-20] MEDS: ORPHENADRINE 60 MG/ 2 ML VIAL IV ×2 (08:35→20:17)
[2023-02-20] MEDS: LACTATED RINGER'S SOLUTION 1,000 ML 75 ML IV ×2 (08:35→20:17)
[2023-02-20] MEDS: POTASSIUM CHLORIDE 40 MEQ in 0.9 % SODIUM CHLORIDE 250 ML 67.5 MEQ IV (08:36)
--- NOTE | 2023-02-20 08:47 | P.PN_ITS ---
Progress Note: Subjective Subjective Interval history: Patient denies any complaints this morning, understands the need for the PEG tube, discussed with family Exam Constitutional Vital Signs, click to edit/add: Last Vital Signs Temp 97.9 F 02/20/23 05:00 Pulse 94 H 02/20/23 08:13 Resp 22 02/20/23 05:00 BP 141/84 02/20/23 05:00 Pulse Ox 96 02/20/23 06:00 O2 Del Method Nasal Cannula 02/20/23 05:00 O2 Flow Rate 2 02/20/23 05:00 FiO2 40 02/16/23 01:00 Documenting provider has reviewed patient's vital signs: yes Common normals: no apparent distress HENMT Common normals: normocephalic and head/scalp atraumatic Eye Common normals: conjunctivae normal and no scleral icterus Respiratory Common normals: normal respiratory effort, no use of accessory muscles and clear to auscultation bilaterally GI Common normals: Normal to inspection, nondistended, normoactive bowel sounds present, soft to palpation, non-tender and no hepatosplenomegaly Extremity Right lower extremity: ankle joint (Ulcer over heel ) Left lower extremity: ankle joint (Ulcer over heel) Neuro Common normals: oriented x3 Speech: abnormal speech (Limited, can speak few words) Gait (neuro): spastic hemiparesis Motor exam: strength abnormal (0/5 b/u UE and LE) Other: Spastic paresis of UE and LE Psych Common normals: mental status grossly normal, denies homicidal ideation and denies suicidal ideation Progress Note: Objective Labs Labs: Short CBC 02/19/23 02/20/23 Range/Units 04:12 03:57 WBC 10.4 11.3 H (4.0-11.0) 10^3/uL Hgb 12.7 L 13.0 L (14.0-18.0) g/dL Hct 38.3 L 38.0 L (42.0-54.0) % Plt Count 456 H 469 H (150-450) 10^3/uL BMP 02/19/23 02/20/23 04:12 03:57 Sodium 138 137 Potassium 3.9 3.2 L Chloride 102 101 Carbon Dioxide 22.6 25.7 BUN 10.0 10.0 Creatinine 0.72 0.68 L Glucose 77 93 Calcium 9.4 8.9 Liver Function 02/19/23 Range/Units 04:12 Total Bilirubin 0.3 (0.2-1.0) mg/dL AST 27 (15-37) U/L ALT 22 (16-63) U/L Alkaline Phosphatase 77 (46-116) U/L Albumin 2.5 L (3.4-5.0) g/dL Progress Note: A&P Assessment and Plan (1) SVT (supraventricular tachycardia): (2) Aspiration pneumonia: Qualifiers: Aspiration pneumonia type: due to gastric secretions Laterality: unspecified laterality Lung location: unspecified part of lung Qualified Code(s): J69.0 - Pneumonitis due to inhalation of food and vomit (3) Metabolic encephalopathy: (4) Sepsis: Qualifiers: Sepsis acute organ dysfunction status: with acute organ dysfunction S epsis type: sepsis due to unspecified organism Severe sepsis acute organ dysfunction type: encephalopathy (5) Dysphagia: Qualifiers: Dysphagia type: oropharyngeal phase Qualified Code(s): R13.12 - Dysphagia, oropharyngeal phase (6) Osteomyelitis of ankle: Onset Date: Unknown Qualifiers: Laterality: left Osteomyelitis type: other chronic Qualified Code(s): M86.672 - Other chronic osteomyelitis, left ankle and foot (7) Respiratory failure with hypoxia: (8) Benign prostate hyperplasia: (9) Traumatic brain injury: (10) Seizure disorder: (11) Hypertension: Plan (1) SVT (supraventricular tachycardia) due to severe sepsis from asp pneumonia: Patient unable to take p.o. medications. On IV Lopressor (2) Aspiration pneumonia:-We will adjust antibiotics - antibiotics adjusted 2 days ago. So far with a stable. (3) Metabolic encephalopathy:Back to baseline. [facility] - no acute pathology. (4) fever, respiratory distress, tachycardia, uncontrolled hypertension now with hypotension and acute hypoxia with saturations less than 80 on admission with metabolic acidosis. Sepsis: Resolved. continue with current antibiotics. (5) Dysphagia:-Discussed with guardian and he would like to proceed at some point with PEG tube placement 6) Osteomyelitis of ankle:-continue with current antibiotics. (7) Respiratory failure with hypoxia:-Improved, stable for now (8) Benign prostate hyperplasia:-Continue with current medications (9) Traumatic brain injury:-plan is to return back to [facility] (10) Seizure disorder: need to change patient to IV Depakote as he is unable to swallow pills (11) Hypertension:-adjusting medications for SVT. Lopressor likely to stabilizes Discussed CODE STATUS with guardian We will make Pt -= DNR -= cc = A After discussing with dilip plan is to have PEG tube placed tomorrow. Possible back to his long-term care facility tomorrow or the day after depending on outcome of surgery
--- NOTE | 2023-02-20 09:25 | CM.NOTE ---
Rounds made with Dr. Espinosa. Await Surgical plan. No discharge today.
--- NOTE | 2023-02-20 10:19 | SWNOTE1 ---
Pt will be getting PEG tube, unsure of when. SW sent updates to [facility].
[2023-02-20] MEDS: METOPROLOL TARTRATE 5 MG/5 ML VIAL IVP ×3 (10:49→21:13)
[2023-02-20 12:24] LABS: Glucometer 101 mg/dL (74-106)
[2023-02-20] MEDS: CLINDAMYCIN PHOSPHATE/D5W 600 MG/50 ML PIGGYBACK 100 MG IV ×3 (12:32→23:16)
[2023-02-20 13:26] LABS: Anion Gap 8.9; BUN Creatinine Ratio 16.4; Calcium 8.7 mg/dL (8.5-10.1); Carbon Dioxide 25.7 mmol/L (21.0-32.0); Chloride 102 mmol/L (98-107); Estimated GFR (African America >60 (>=60); Estimated GFR (Non-African Ame >60 (>=60); Glucose 102 mg/dL (74-106); Potassium 3.6 mmol/L (3.5-5.1); Sodium 133 mmol/L (136-145)
--- NOTE | 2023-02-20 14:27 | SWNOTE1 ---
RONNIE spoke with Jing at [facility] and possibility of wanting to try to skill pt when he returns due to peg tube placement. SW to speak with pt's POA.
--- NOTE | 2023-02-20 16:26 | SWNOTE1 ---
RONNIE did speak with pt's son in room and he is alright with [facility] attempting to get him skilled back at facility if he stays in same room. RONNIE did verify with Jing at [facility] and pt would be going back to same room. Jing did start precert.
[2023-02-20 16:54] LABS: Glucometer 94 mg/dL (74-106)
[2023-02-20 20:03] LABS: Glucometer 97 mg/dL (74-106)
[2023-02-20] MEDS: ZIPRASIDONE MESYLATE 20 MG/ML VIAL 10 MG IM (21:13)
[2023-02-21] VITALS (19 sets, daily range): BP systolic 131–163; BP diastolic 66–78; PULSE 55–85; RESP 18–32; TEMP 36.4–37.3; O2SAT 89–99
[2023-02-21] MEDS: SODIUM CHLORIDE 0.9% IV ×3 (00:12→23:48)
[2023-02-21] MEDS: AMIKACIN SULFATE IV ×3 (00:12→23:48)
[2023-02-21] MEDS: METOPROLOL TARTRATE 5 MG/5 ML VIAL IVP ×4 (03:23→21:54)
[2023-02-21 04:37] LABS: Basophils Absolute Auto 0.1 10^3/uL (0.0-0.1); Basophils Percent Auto 0.8 % (0.2-2.0); Eosinophils Absolute Auto 0.3 10^3/uL (0.0-0.7); Eosinophils Percent Auto 2.7 % (0.9-7.0); Hematocrit 35.4 % (42.0-54.0); Hemoglobin 11.4 g/dL (14.0-18.0); Immature Granulocytes Abs Auto 0.24 10^3/uL (0.00-0.03); Immature Granulocytes Pct Auto 2.2 % (0.0-0.5); Lymphocytes Absolute Auto 2.4 10^3/uL (1.2-3.8); Lymphocytes Percent Auto 22.6 % (20.5-60.0); Mean Corpuscular HGB Conc 32.2 g/dL (29.9-35.2); Mean Corpuscular Volume 90.1 fL (80.0-94.0); Mean Platelet Volume 8.3 fL (9.5-13.5); Monocytes Absolute Auto 1.4 10^3/uL (0.3-0.8); Monocytes Percent Auto 12.5 % (1.7-12.0); Neutrophils Absolute Auto 6.4 10^3/uL (1.4-6.5); Neutrophils Percent Auto 59.2 % (43.0-75.0); Platelet Count 391 10^3/uL (150-450); Red Blood Count 3.93 10^6/uL (4.70-6.10); Red Cell Distribution Width 13.9 % (11.0-15.0); White Blood Count 10.8 10^3/uL (4.0-11.0)
[2023-02-21 04:49] LABS: BUN Creatinine Ratio 16.1; Carbon Dioxide 27.1 mmol/L (21.0-32.0); Chloride 102 mmol/L (98-107); Estimated GFR (African America >60 (>=60); Estimated GFR (Non-African Ame >60 (>=60); Glucose 79 mg/dL (74-106); Potassium 3.1 mmol/L (3.5-5.1); Sodium 138 mmol/L (136-145)
[2023-02-21] MEDS: CLINDAMYCIN PHOSPHATE/D5W 600 MG/50 ML PIGGYBACK 100 MG IV ×4 (05:07→23:15)
--- NOTE | 2023-02-21 07:46 | CM.NOTE ---
Rounds made with Dr. Espinosa, awaiting surgeon to see pt for possible peg tube placement. Pt is fpc at [facility].
[2023-02-21] MEDS: ORPHENADRINE 60 MG/ 2 ML VIAL IV ×2 (09:18→21:53)
--- NOTE | 2023-02-21 09:43 | P.GSCN_ITS ---
History of Present Illness Consult details Consult date: 02/20/23 Narrative: patient is a 72-year-old male recently admitted for aspiration pneumonia. 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 Patient is thought to have significant aspiration as well as dysphagia and therefore I was asked to see patient for PEG tube placement. Patient was relatively noncommunicative on evaluation and therefore I discussed the procedure with the patient's son and he agrees to consent for the procedure as he is POA. Review of Systems ROS Narrative negative except HPI, wounds of the lower extremities PFSH PFS Medical History (Updated 02/16/23 @ 17:03 by Andrés Thacker MD) Surgical History (Updated 02/15/23 @ 12:16 by Shaikh Tierra MD) Social History (Updated 02/15/23 @ 12:17 by Shaikh Tierra MD) Within the past year, how often did you have a drink containing alcohol: never Score interpretation: A score less than 4 is consistent with normal alcohol consumption. Smoking status: Never smoker Non-prescribed substance use: denies use Meds Home Medications and Allergies Home Medications Medication Instructions Recorded Confirmed Type acetaminophen 650 mg PO .every 4 hours PRN pain 02/14/23 02/14/23 History amlodipine 10 mg tablet 10 mg PO DAILY 02/14/23 02/14/23 History aspirin 81 mg tablet,delayed 81 mg PO DAILY 02/14/23 02/14/23 History release baclofen 10 mg tablet 10 mg PO TID 02/14/23 02/14/23 History clonidine HCl 0.1 mg tablet 0.1 mg PO BID 02/14/23 02/14/23 History collagenase clostridium histo. 250 topical 02/14/23 History unit/gram topical ointment (Santyl) divalproex 125 mg capsule,delayed 125 mg PO TID 02/14/23 02/14/23 History release sprinkle doxycycline hyclate 100 mg tablet 100 mg PO BID 02/14/23 02/14/23 History gabapentin 300 mg capsule 600 mg PO BID 02/14/23 02/14/23 History gabapentin 600 mg tablet mg 02/14/23 History ondansetron 4 mg disintegrating 4 mg PO Q6H PRN nausea and vomiting 02/14/23 02/14/23 History tablet quetiapine 25 mg tablet 75 mg PO BEDTIME 02/14/23 02/14/23 History quetiapine 50 mg tablet 75 mg PO BEDTIME 02/14/23 02/14/23 History tamsulosin 0.4 mg capsule 0.4 mg PO BEDTIME 02/14/23 02/14/23 History Allergies Allergy/AdvReac Type Severity Reaction Status Date / Time Penicillins Allergy Severe Verified 02/14/23 18:30 propoxyphene [From Darvon] Allergy Severe Unknown Verified 02/14/23 18:30 Exam Narrative Exam Narrative: patient is an ill-appearing elderly male again was minimal responsiveness. Abdomen is soft. It didn't appreciate any abdominal scars. Constitutional Vital Signs, click to edit/add: Last Vital Signs Temp 97.5 F L 02/21/23 05:15 Pulse 58 L 02/21/23 07:56 Resp 18 02/21/23 05:15 BP 145/76 H 02/21/23 05:15 Pulse Ox 93 L 02/21/23 05:15 O2 Del Method Room Air 02/21/23 05:15 O2 Flow Rate 2 02/20/23 05:00 FiO2 40 02/16/23 01:00 Results Labs Labs: Abnormal lab results 02/20/23 02/21/23 Range/Units 13:06 04:03 RBC 3.93 L (4.70-6.10) 10^6/uL Hgb 11.4 L (14.0-18.0) g/dL Hct 35.4 L (42.0-54.0) % MPV 8.3 L (9.5-13.5) fL [place] % (Auto) 12.5 H (1.7-12.0) % [place] # (Auto) 1.4 H (0.3-0.8) 10^3/uL Abs Immat Gran (auto) 0.24 H (0.00-0.03) 10^3/uL Imm/Tot Granulo (auto) 2.2 H (0.0-0.5) % Sodium 133 L (136-145) mmol/L Potassium 3.1 L (3.5-5.1) mmol/L Creatinine 0.67 L 0.62 L (0.70-1.30) mg/dL Diabetes panel 02/20/23 02/21/23 Range/Units 13:06 04:03 Sodium 133 L 138 (136-145) mmol/L Potassium 3.6 3.1 L (3.5-5.1) mmol/L Chloride 102 102 (98-107) mmol/L Carbon Dioxide 25.7 27.1 (21.0-32.0) mmol/L BUN 11.0 10.0 (7.0-18.0) mg/dL Creatinine 0.67 L 0.62 L (0.70-1.30) mg/dL Glucose 102 79 (74-106) mg/dL Calcium 8.7 9.0 (8.5-10.1) mg/dL Calcium panel 02/20/23 02/21/23 Range/Units 13:06 04:03 Calcium 8.7 9.0 (8.5-10.1) mg/dL Pituitary panel 02/20/23 02/21/23 Range/Units 13:06 04:03 Sodium 133 L 138 (136-145) mmol/L Potassium 3.6 3.1 L (3.5-5.1) mmol/L Chloride 102 102 (98-107) mmol/L Carbon Dioxide 25.7 27.1 (21.0-32.0) mmol/L BUN 11.0 10.0 (7.0-18.0) mg/dL Creatinine 0.67 L 0.62 L (0.70-1.30) mg/dL Glucose 102 79 (74-106) mg/dL Calcium 8.7 9.0 (8.5-10.1) mg/dL Adrenal panel 02/20/23 02/21/23 Range/Units 13:06 04:03 Sodium 133 L 138 (136-145) mmol/L Potassium 3.6 3.1 L (3.5-5.1) mmol/L Chloride 102 102 (98-107) mmol/L Carbon Dioxide 25.7 27.1 (21.0-32.0) mmol/L BUN 11.0 10.0 (7.0-18.0) mg/dL Creatinine 0.67 L 0.62 L (0.70-1.30) mg/dL Glucose 102 79 (74-106) mg/dL Calcium 8.7 9.0 (8.5-10.1) mg/dL All other labs normal. Assessment and Plan Assessment and Plan (1) SVT (supraventricular tachycardia): (2) Aspiration pneumonia: Assessment and Plan: Episode of aspiration resulting in acute resp failure with hypoxia -required endotracheal intubated and was on ventilator until this morning. Extubated today and currently on 2 L O2 via NC with no evidence of resp distress. CXR no evidence of consolidation but suspect its likely too soon. On broad spectrum abx - Vancomycin/Levaquin/Flagyl Qualifiers: Aspiration pneumonia type: due to gastric secretions Laterality: unspecified laterality Lung location: unspecified part of lung Qualified Code(s): J69.0 - Pneumonitis due to inhalation of food and vomit (3) Metabolic encephalopathy: Assessment and Plan: P/w AMS - was comatosed with GCS of 3. Now back to his baseline CTH no acute intracranial pathology. (4) Sepsis: Assessment and Plan: HR > 90, RR > 20, WBC > 20K Suspect Aspiration PNA and/or OM of his feet b/l as the source. On IV vancomycin/Levaquin/flagyl. Stable hemodynamics now. C/w IVF. F/u cx. Qualifiers: Sepsis type: sepsis due to unspecified organism Sepsis acute organ dysfunction status: with acute organ dysfunction Severe sepsis acute organ dysfunction type: encephalopathy (5) Dysphagia: Assessment and Plan: the above findings I would agree that PEG placement is indicated. The risks benefits options of times, indications of the procedure were discussed in detail with the patient's son and he agrees to proceed. Qualifiers: Dysphagia type: oropharyngeal phase Qualified Code(s): R13.12 - Dysphagia, oropharyngeal phase (6) Osteomyelitis of ankle: Onset Date: Unknown Assessment and Plan: b/l OM -foul smelling/purulent discharge. Small, about the size of a quarter. On IV abx. Consulted Podiatry. Will need deridement. Qualifiers: Osteomyelitis type: other chronic Laterality: left Qualified Code(s): M86.672 - Other chronic osteomyelitis, left ankle and foot (7) Respiratory failure with hypoxia: Assessment and Plan: Was intubated in ED for resp failure and failure to protect his airway Extubated earlier today. 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 (10) Seizure disorder: Assessment and Plan: On depakote. Controlled with no report of recent breakthrough seizures. (11) Hypertension: Assessment and Plan: On clonidine and Amlodipine. Hold due to sepsis. On IVF. Monitor Plan assessment: Left calcaneal ulceration Right calcaneal ulceration Quadriplegic plan: Patient seen and evaluated Physical exam findings reviewed with hospitalist team and family member who is the power of sports attorney labs reviewed, WBC of 27.7, CRP of 21.8, ESR of seventy-four After verbal consent was obtained from his power of sports attorney I did debrided his ulcers down to and including subcutaneous tissue without incident. dressings included Santyl, 4 x 4 gauze, ABDs and Kerlix I recommend Santyl with dry dressings daily I discussed with his hospitalist team that I have low suspicion that the calcaneal ulcers are causing his elevated inflammatory markers and white count There is bacteria noted on his UA which likely could be another reason for his infection concerns If his labs continue to worsen I did discuss obtaining an MRI for further evaluation of calcaneal osteomyelitis. This will likely need to be treated with a partial calcanectomy We will await to see how he responds to antibiotics We will follow with his family can call for questions or concerns We'll see him on an outpatient wound center in 1-2 weeks from discharge
[2023-02-21] MEDS: LACTATED RINGER'S SOLUTION 1,000 ML 50 ML IV (10:41)
--- NOTE | 2023-02-21 10:48 | P.PN_ITS ---
Progress Note: Subjective Subjective Interval history: Not as conversational this morning but it is much earlier than I normally round. Exam Constitutional Vital Signs, click to edit/add: Last Vital Signs Temp 97.5 F L 02/21/23 05:15 Pulse 57 L 02/21/23 10:12 Resp 18 02/21/23 05:15 BP 145/76 H 02/21/23 05:15 Pulse Ox 93 L 02/21/23 05:15 O2 Del Method Room Air 02/21/23 05:15 O2 Flow Rate 2 02/20/23 05:00 FiO2 40 02/16/23 01:00 Documenting provider has reviewed patient's vital signs: yes Common normals: no apparent distress HENMT Common normals: normocephalic and head/scalp atraumatic Eye Common normals: conjunctivae normal and no scleral icterus Respiratory Common normals: normal respiratory effort, no use of accessory muscles and clear to auscultation bilaterally GI Common normals: Normal to inspection, nondistended, normoactive bowel sounds present, soft to palpation, non-tender and no hepatosplenomegaly Extremity Right lower extremity: ankle joint (Ulcer over heel ) Left lower extremity: ankle joint (Ulcer over heel) Neuro Common normals: oriented x3 Speech: abnormal speech (Limited, can speak few words) Gait (neuro): spastic hemiparesis Motor exam: strength abnormal (0/5 b/u UE and LE) Other: Spastic paresis of UE and LE Psych Common normals: mental status grossly normal, denies homicidal ideation and denies suicidal ideation Progress Note: Objective Labs Labs: Short CBC 02/21/23 Range/Units 04:03 WBC 10.8 (4.0-11.0) 10^3/uL Hgb 11.4 L (14.0-18.0) g/dL Hct 35.4 L (42.0-54.0) % Plt Count 391 (150-450) 10^3/uL BMP 02/20/23 02/21/23 13:06 04:03 Sodium 133 L 138 Potassium 3.6 3.1 L Chloride 102 102 Carbon Dioxide 25.7 27.1 BUN 11.0 10.0 Creatinine 0.67 L 0.62 L Glucose 102 79 Calcium 8.7 9.0 Progress Note: A&P Assessment and Plan (1) SVT (supraventricular tachycardia): (2) Aspiration pneumonia: Qualifiers: Aspiration pneumonia type: due to gastric secretions Laterality: unspecified laterality Lung location: unspecified part of lung Qualified Code(s): J69.0 - Pneumonitis due to inhalation of food and vomit (3) Metabolic encephalopathy: (4) Sepsis: Qualifiers: Sepsis acute organ dysfunction status: with acute organ dysfunction Sepsis type: sepsis due to unspecified organism Severe sepsis acute organ dysfunction type: encephalopathy (5) Dysphagia: Qualifiers: Dysphagia type: oropharyngeal phase Qualified Code(s): R13.12 - Dysphagia, oropharyngeal phase (6) Osteomyelitis of ankle: Onset Date: Unknown Qualifiers: Laterality: left Osteomyelitis type: other chronic Qualified Code(s): M86.672 - Other chronic osteomyelitis, left ankle and foot (7) Respiratory failure with hypoxia: (8) Benign prostate hyperplasia: (9) Traumatic brain injury: (10) Seizure disorder: (11) Hypertension: Plan (1) SVT (supraventricular tachycardia) due to severe sepsis from asp pneumonia: Patient unable to take p.o. medications. On IV Lopressor-stable, once PEG tube is placed later today likely restart back on medications through PEG tube (2) Aspiration pneumonia:-We will adjust antibiotics - antibiotics adjusted 2 days ago. So far with a stable.-Stable continue with antibiotics (3) Metabolic encephalopathy:Back to baseline. [facility] - no acute pathology. (4) fever, respiratory distress, tachycardia, uncontrolled hypertension now with hypotension and acute hypoxia with saturations less than 80 on admission with metabolic acidosis. Sepsis: Resolved. continue with current antibiotics. (5) Dysphagia:- PEG tube placed today o 6) Osteomyelitis of ankle:-continue with current antibiotics. (7) Respiratory failure with hypoxia:-Improved, stable for now (8) Benign prostate hyperplasia:-Continue with current medications (9) Traumatic brain injury:-plan is to return back to care center (10) Seizure disorder: need to change patient to IV Depakote as he is unable to swallow pills (11) Hypertension:-adjusting medications for SVT. Lopressor likely to stabilizes Discussed CODE STATUS with guardian We will make Pt -= DNR -= cc = A lunch tube was placed today likely transition to change in medications through the PEG tube and may be back to rehab tomorrow of surgery
[2023-02-21 11:55] LABS: Glucometer 86 mg/dL (74-106)
--- NOTE | 2023-02-21 12:31 | NUTR.NU ---
EEN calculated 69 kg= 2040-8652 kcal ( ) protein 86-89 g ( 1.25/1.3) fluid 2070- 2200 ml ( 30)
--- NOTE | 2023-02-21 12:33 | DIETREC ---
1. Tube feeding recommendation: 40 ml/ h cont Glucerna 1.5 via peg tube and 200 ml H20 flush q 4 h via peg tube. 2. check residual q 4 h 3. If tube fedding is tolerated for 24 hours with no s/s Gi distress or intolerance or residual; advance tube feeding to: 4 50 ml/h continuous Glucerna 1.5 via peg tube & 200 ml H20 flush q 4 h via peg tube to furnish: 1650 kcal ( 100%) 94.6 g protein ( 100%) 2025 ml fluids not including nursing flushes (100%)
[2023-02-21] MEDS: WATER FOR IRRIGATION, STERILE 1,000 ML IRRIG.SOLN 30 ML G-TUBE ×2 (14:37→21:54)
--- NOTE | 2023-02-21 15:43 | SWNOTE1 ---
Updates sent to [facility].
[2023-02-21] MEDS: LACTATED RINGER'S SOLUTION 1,000 ML 75 ML IV (16:00)
[2023-02-21 16:40] LABS: Glucometer 94 mg/dL (74-106)
[2023-02-21 20:22] LABS: Glucometer 100 mg/dL (74-106)
[2023-02-21] MEDS: ZIPRASIDONE MESYLATE 20 MG/ML VIAL 10 MG IM (21:54)
[2023-02-22] VITALS (9 sets, daily range): BP systolic 138; BP diastolic 73; PULSE 47–74; RESP 20; TEMP 37.1; O2SAT 91
[2023-02-22] MEDS: METOPROLOL TARTRATE 5 MG/5 ML VIAL IVP (04:09)
[2023-02-22] MEDS: CLINDAMYCIN PHOSPHATE/D5W 600 MG/50 ML PIGGYBACK 100 MG IV (05:08)
[2023-02-22 05:39] LABS: Basophils Absolute Auto 0.1 10^3/uL (0.0-0.1); Basophils Percent Auto 0.7 % (0.2-2.0); Eosinophils Absolute Auto 0.2 10^3/uL (0.0-0.7); Eosinophils Percent Auto 2.4 % (0.9-7.0); Hematocrit 33.5 % (42.0-54.0); Hemoglobin 11.1 g/dL (14.0-18.0); Immature Granulocytes Abs Auto 0.14 10^3/uL (0.00-0.03); Immature Granulocytes Pct Auto 1.6 % (0.0-0.5); Lymphocytes Absolute Auto 1.9 10^3/uL (1.2-3.8); Mean Corpuscular HGB Conc 33.1 g/dL (29.9-35.2); Mean Corpuscular Hemoglobin 29.1 pg (25.9-34.0); Mean Corpuscular Volume 87.9 fL (80.0-94.0); Mean Platelet Volume 8.6 fL (9.5-13.5); Monocytes Absolute Auto 1.2 10^3/uL (0.3-0.8); Monocytes Percent Auto 13.7 % (1.7-12.0); Neutrophils Absolute Auto 5.4 10^3/uL (1.4-6.5); Neutrophils Percent Auto 60.6 % (43.0-75.0); Platelet Count 439 10^3/uL (150-450); Red Blood Count 3.81 10^6/uL (4.70-6.10); Red Cell Distribution Width 14.1 % (11.0-15.0); White Blood Count 8.9 10^3/uL (4.0-11.0)
[2023-02-22 05:51] LABS: Anion Gap 10.5; BUN Creatinine Ratio 13.4; Calcium 8.4 mg/dL (8.5-10.1); Carbon Dioxide 27.7 mmol/L (21.0-32.0); Chloride 103 mmol/L (98-107); Estimated GFR (African America >60 (>=60); Estimated GFR (Non-African Ame >60 (>=60); Glucose 118 mg/dL (74-106); Potassium 3.2 mmol/L (3.5-5.1); Sodium 138 mmol/L (136-145)
--- NOTE | 2023-02-22 07:29 | PM.GSCN ---
[facility] Medical History (Updated 02/16/23 @ 17:03 by Andrés Thacker DPM) Surgical History (Updated 02/15/23 @ 12:16 by Shaikh Tierra MD) Social History (Updated 02/15/23 @ 12:17 by Shaikh Tierra MD) Within the past year, how often did you have a drink containing alcohol: never Score interpretation: A score less than 4 is consistent with normal alcohol consumption. Smoking status: Never smoker Non-prescribed substance use: denies use Meds Home Medications and Allergies Home Medications Medication Instructions Recorded Confirmed Type acetaminophen 650 mg PO .every 4 hours PRN pain 02/14/23 02/14/23 History amlodipine 10 mg tablet 10 mg PO DAILY 02/14/23 02/14/23 History aspirin 81 mg tablet,delayed 81 mg PO DAILY 02/14/23 02/14/23 History release baclofen 10 mg tablet 10 mg PO TID 02/14/23 02/14/23 History clonidine HCl 0.1 mg tablet 0.1 mg PO BID 02/14/23 02/14/23 History collagenase clostridium histo. 250 topical 02/14/23 History unit/gram topical ointment (Santyl) divalproex 125 mg capsule,delayed 125 mg PO TID 02/14/23 02/14/23 History release sprinkle doxycycline hyclate 100 mg tablet 100 mg PO BID 02/14/23 02/14/23 History gabapentin 300 mg capsule 600 mg PO BID 02/14/23 02/14/23 History gabapentin 600 mg tablet mg 02/14/23 History ondansetron 4 mg disintegrating 4 mg PO Q6H PRN nausea and vomiting 02/14/23 02/14/23 History tablet quetiapine 25 mg tablet 75 mg PO BEDTIME 02/14/23 02/14/23 History quetiapine 50 mg tablet 75 mg PO BEDTIME 02/14/23 02/14/23 History tamsulosin 0.4 mg capsule 0.4 mg PO BEDTIME 02/14/23 02/14/23 History Allergies Allergy/AdvReac Type Severity Reaction Status Date / Time Penicillins Allergy Severe Verified 02/14/23 18:30 propoxyphene [From Darvon] Allergy Severe Unknown Verified 02/14/23 18:30 Exam Constitutional Vital Signs, click to edit/add: Last Vital Signs Temp 98.7 F 02/22/23 05:18 Pulse 62 02/22/23 06:01 Resp 20 02/22/23 05:18 BP 138/73 02/22/23 05:18 Pulse Ox 91 L 02/22/23 05:18 O2 Del Method Room Air 02/22/23 05:18 O2 Flow Rate 3 02/21/23 11:20 FiO2 40 02/16/23 01:00 Results Labs Labs: Abnormal lab results 02/22/23 Range/Units 04:45 RBC 3.81 L (4.70-6.10) 10^6/uL Hgb 11.1 L (14.0-18.0) g/dL Hct 33.5 L (42.0-54.0) % MPV 8.6 L (9.5-13.5) fL Harper % (Auto) 13.7 H (1.7-12.0) % Harper # (Auto) 1.2 H (0.3-0.8) 10^3/uL Abs Immat Gran (auto) 0.14 H (0.00-0.03) 10^3/uL Imm/Tot Granulo (auto) 1.6 H (0.0-0.5) % Potassium 3.2 L (3.5-5.1) mmol/L Creatinine 0.67 L (0.70-1.30) mg/dL Glucose 118 H (74-106) mg/dL Calcium 8.4 L (8.5-10.1) mg/dL Diabetes panel 02/22/23 Range/Units 04:45 Sodium 138 (136-145) mmol/L Potassium 3.2 L (3.5-5.1) mmol/L Chloride 103 (98-107) mmol/L Carbon Dioxide 27.7 (21.0-32.0) mmol/L BUN 9.0 (7.0-18.0) mg/dL Creatinine 0.67 L (0.70-1.30) mg/dL Glucose 118 H (74-106) mg/dL Calcium 8.4 L (8.5-10.1) mg/dL Calcium panel 02/22/23 Range/Units 04:45 Calcium 8.4 L (8.5-10.1) mg/dL Pituitary panel 02/22/23 Range/Units 04:45 Sodium 138 (136-145) mmol/L Potassium 3.2 L (3.5-5.1) mmol/L Chloride 103 (98-107) mmol/L Carbon Dioxide 27.7 (21.0-32.0) mmol/L BUN 9.0 (7.0-18.0) mg/dL Creatinine 0.67 L (0.70-1.30) mg/dL Glucose 118 H (74-106) mg/dL Calcium 8.4 L (8.5-10.1) mg/dL Adrenal panel 02/22/23 Range/Units 04:45 Sodium 138 (136-145) mmol/L Potassium 3.2 L (3.5-5.1) mmol/L Chloride 103 (98-107) mmol/L Carbon Dioxide 27.7 (21.0-32.0) mmol/L BUN 9.0 (7.0-18.0) mg/dL Creatinine 0.67 L (0.70-1.30) mg/dL Glucose 118 H (74-106) mg/dL Calcium 8.4 L (8.5-10.1) mg/dL All other labs normal. Assessment and Plan Assessment and Plan (1) SVT (supraventricular tachycardia): (2) Aspiration pneumonia: Assessment and Plan: Episode of aspiration resulting in acute resp failure with hypoxia -required endotracheal intubated and was on ventilator until this morning. Extubated today and currently on 2 L O2 via NC with no evidence of resp distress. CXR no evidence of consolidation but suspect its likely too soon. On broad spectrum abx - Vancomycin/Levaquin/Flagyl Qualifiers: Aspiration pneumonia type: due to gastric secretions Laterality: unspecified laterality Lung location: unspecified part of lung Qualified Code(s): J69.0 - Pneumonitis due to inhalation of food and vomit (3) Metabolic encephalopathy: Assessment and Plan: P/w AMS - was comatosed with GCS of 3. Now back to his baseline CTH no acute intracranial pathology. (4) Sepsis: Assessment and Plan: HR > 90, RR > 20, WBC > 20K Suspect Aspiration PNA and/or OM of his feet b/l as the source. On IV vancomycin/Levaquin/flagyl. Stable hemodynamics now. C/w IVF. F/u cx. Qualifiers: Sepsis type: sepsis due to unspecified organism Sepsis acute organ dysfunction status: with acute organ dysfunction Severe sepsis acute organ dysfunction type: encephalopathy (5) Dysphagia: Assessment and Plan: the above findings I would agree that PEG placement is indicated. The risks benefits options of times, indications of the procedure were discussed in detail with the patient's son and he agrees to proceed. Qualifiers: Dysphagia type: oropharyngeal phase Qualified Code(s): R13.12 - Dysphagia, oropharyngeal phase (6) Osteomyelitis of ankle: Onset Date: Unknown Assessment and Plan: b/l OM -foul smelling/purulent discharge. Small, about the size of a quarter. On IV abx. Consulted Podiatry. Will need deridement. Qualifiers: Osteomyelitis type: other chronic Laterality: left Qualified Code(s): M86.672 - Other chronic osteomyelitis, left ankle and foot (7) Respiratory failure with hypoxia: Assessment and Plan: Was intubated in ED for resp failure and failure to protect his airway Extubated earlier today. 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 (10) Seizure disorder: Assessment and Plan: On depakote. Controlled with no report of recent breakthrough seizures. (11) Hypertension: Assessment and Plan: On clonidine and Amlodipine. Hold due to sepsis. On IVF. Monitor Plan assessment: Left calcaneal ulceration Right calcaneal ulceration Quadriplegic plan: Patient seen and evaluated Physical exam findings reviewed with hospitalist team and family member who is the power of insurance attorney labs reviewed, WBC of 27.7, CRP of 21.8, ESR of seventy-four After verbal consent was obtained from his power of insurance attorney I did debrided his ulcers down to and including subcutaneous tissue without incident. dressings included Santyl, 4 x 4 gauze, ABDs and Kerlix I recommend Santyl with dry dressings daily I discussed with his hospitalist team that I have low suspicion that the calcaneal ulcers are causing his elevated inflammatory markers and white count There is bacteria noted on his UA which likely could be another reason for his infection concerns If his labs continue to worsen I did discuss obtaining an MRI for further evaluation of calcaneal osteomyelitis. This will likely need to be treated with a partial calcanectomy We will await to see how he responds to antibiotics We will follow with his family can call for questions or concerns We'll see him on an outpatient wound center in 1-2 weeks from discharge
[2023-02-22] MEDS: CLONIDINE HCL 0.1 MG TABLET PO (09:09)
[2023-02-22] MEDS: GABAPENTIN 300 MG CAPSULE 600 MG PO (09:09)
[2023-02-22] MEDS: SULFAMETHOXAZOLE/TRIMETHOPRIM 800 MG/160 MG 20 ML ORAL.SUSP G-TUBE (09:09)
[2023-02-22] MEDS: ASPIRIN 81 MG TAB.CHEW PO (09:09)
--- NOTE | 2023-02-22 09:16 | P.DS_ITS ---
DS: Providers Provider Date of admission: 02/14/23 20:46 Primary care physician: ADELINA NIXON Consults: 02/14/23 23:07 Physical Therapy Eval and Treat Routine 02/15/23 11:40 Consult to Podiatry Routine Consulting Provider: Andrés Thacker 02/16/23 Speech Therapy Eval and Treat Routine 02/20/23 07:00 Consult to General Surgeon Routine Consulting Provider: Austen Padilla 02/20/23 10:30 Consult to Wound Care Routine Consulting Provider: Austen Padilla DS: Diagnosis Discharge Diagnosis (1) SVT (supraventricular tachycardia): (2) Aspiration pneumonia: Qualifiers: Aspiration pneumonia type: due to gastric secretions Laterality: unspecified laterality Lung location: unspecified part of lung Qualified Code(s): J69.0 - Pneumonitis due to inhalation of food and vomit (3) Metabolic encephalopathy: (4) Sepsis: Qualifiers: Sepsis acute organ dysfunction status: with acute organ dysfunction Sepsis type: sepsis due to unspecified organism Severe sepsis acute organ dysfunction type: encephalopathy (5) Dysphagia: Qualifiers: Dysphagia type: oropharyngeal phase Qualified Code(s): R13.12 - Dysphagia, oropharyngeal phase (6) Osteomyelitis of ankle: Onset Date: Unknown Qualifiers: Laterality: left Osteomyelitis type: other chronic Qualified Code(s): M86.672 - Other chronic osteomyelitis, left ankle and foot (7) Respiratory failure with hypoxia: (8) Benign prostate hyperplasia: (9) Traumatic brain injury: (10) Seizure disorder: (11) Hypertension: Plan (1) SVT (supraventricular tachycardia) due to severe sepsis from asp pneumonia: Patient unable to take p.o. medications.? On IV Lopressor-stable, once PEG tube is placed later today likely restart back on medications through PEG tube (2) Aspiration pneumonia:-We will adjust antibiotics? - antibiotics adjusted? 2 days ago.? So far with a stable.-Stable continue with antibiotics (3) Metabolic encephalopathy:Back to baseline. CTH - no acute pathology. (4)? fever, respiratory distress, tachycardia, uncontrolled hypertension? now with hypotension and acute hypoxia? with saturations less than 80 on admission with metabolic acidosis.? Sepsis: Resolved.? continue with current antibiotics.? (5) Dysphagia:- PEG tube placed today o 6) Osteomyelitis of ankle:-continue with current antibiotics. (7) Respiratory failure with hypoxia:-Improved, stable for now (8) Benign prostate hyperplasia:-Continue with current medications (9) Traumatic brain injury:-plan is to return back to care center (10) Seizure disorder: need to change patient to IV Depakote as he is unable to swallow pills (11) Hypertension:-adjusting medications for SVT. Lopressor likely to stabilizes Discussed CODE STATUS with guardian We will make Pt -= DNR -= cc = A ?lunch tube was placed today likely transition to change in medications through the PEG tube and may be back to rehab tomorrow of surgery DS: Summary Hospital Course Hospital Course: Patient was admitted to the ICU with acute hypoxic respiratory failure secondary to aspiration pneumonia, witnessed event, placed on ventilator overnight. Able to be extubated the next day. The only other complication other than treating the pneumonia for an extended period of time with his difficulty swallowing. He having multiple choking episodes or consultation with surgery for PEG tube placement. That was completed yesterday. Only other issue is his SVT. Treated medically. Has been stable after treatment for the pneumonia. At this point he can be referred back to his rehabilitation facility. Medications see list. Follow-up with PCP at rehab facility Time Spent with Patient Time attestation: Total time spent providing and/or coordinating discharge services: Exam Constitutional Vital Signs, click to edit/add: Last Vital Signs Temp 98.7 F 02/22/23 05:18 Pulse 47 L 02/22/23 08:15 Resp 20 02/22/23 05:18 BP 138/73 02/22/23 05:18 Pulse Ox 91 L 02/22/23 05:18 O2 Del Method Room Air 02/22/23 05:18 O2 Flow Rate 3 02/21/23 11:20 FiO2 40 02/16/23 01:00 Documenting provider has reviewed patient's vital signs: yes Common normals: no apparent distress HENMT Common normals: normocephalic and head/scalp atraumatic Eye Common normals: conjunctivae normal and no scleral icterus Respiratory Common normals: normal respiratory effort, no use of accessory muscles and clear to auscultation bilaterally GI Common normals: Normal to inspection, nondistended, normoactive bowel sounds present, soft to palpation, non-tender and no hepatosplenomegaly Extremity Right lower extremity: ankle joint (Ulcer over heel ) Left lower extremity: ankle joint (Ulcer over heel) Neuro Common normals: oriented x3 Speech: abnormal speech (Limited, can speak few words) Gait (neuro): spastic hemiparesis Motor exam: strength abnormal (0/5 b/u UE and LE) Other: Spastic paresis of UE and LE Psych Common normals: mental status grossly normal, denies homicidal ideation and denies suicidal ideation DS: Data Data Completed and Pending Labs on day of discharge: Labs from last 24 hours 02/22/23 02/21/23 02/21/23 04:45 20:21 16:39 WBC 8.9 RBC 3.81 L Hgb 11.1 L Hct 33.5 L MCV 87.9 MCH 29.1 MCHC 33.1 RDW 14.1 Plt Count 439 MPV 8.6 L Neut % (Auto) 60.6 Lymph % (Auto) 21.0 Wise % (Auto) 13.7 H Eos % (Auto) 2.4 Baso % (Auto) 0.7 Neut # (Auto) 5.4 Lymph # (Auto) 1.9 Wise # (Auto) 1.2 H Eos # (Auto) 0.2 Baso # (Auto) 0.1 Abs Immat Gran (auto) 0.14 H Imm/Tot Granulo (auto) 1.6 H Sodium 138 Potassium 3.2 L Chloride 103 Carbon Dioxide 27.7 Anion Gap 10.5 BUN 9.0 Creatinine 0.67 L Est GFR ( Amer) >60 Est GFR (Non-Af Amer) >60 BUN/Creatinine Ratio 13.4 Glucose 118 H Calcium 8.4 L POC Glucose 100 94 02/21/23 11:53 WBC RBC Hgb Hct MCV MCH MCHC RDW Plt Count MPV Neut % (Auto) Lymph % (Auto) Wise % (Auto) Eos % (Auto) Baso % (Auto) Neut # (Auto) Lymph # (Auto) Wise # (Auto) Eos # (Auto) Baso # (Auto) Abs Immat Gran (auto) Imm/Tot Granulo (auto) Sodium Potassium Chloride Carbon Dioxide Anion Gap BUN Creatinine Est GFR ( Amer) Est GFR (Non-Af Amer) BUN/Creatinine Ratio Glucose Calcium POC Glucose 86 Discharge Plan Discharge Disposition: Xfer SNF Condition: Critical Discharge Medications: New water for irrigation, sterile Solution 30 ml G-tube TID 30 Days Qty: 6000 0RF sulfamethoxazole-trimethoprim 200-40 mg/5 mL Suspension 20 ml G-tube BID 21 Days Qty: 840 0RF Ensure Original 0.04-1.05 gram-kcal/mL Liquid 30 ea feeding tube CONT Qty: 5688 0RF Rx Instructions: 30cc/hour cont feeds - advance per physician discretion Continued clonidine HCl 0.1 mg tablet 0.1 mg PO BID aspirin 81 mg tablet,delayed release (DR/EC) 81 mg PO DAILY baclofen 10 mg tablet 10 mg PO TID amlodipine 10 mg tablet 10 mg PO DAILY gabapentin 300 mg capsule 600 mg PO BID divalproex 125 mg capsule, delayed rel sprinkle 125 mg PO TID gabapentin 600 mg tablet quetiapine 25 mg tablet 75 mg PO BEDTIME tamsulosin 0.4 mg capsule 0.4 mg PO BEDTIME Santyl 250 unit/gram ointment TOPICAL ondansetron 4 mg tablet,disintegrating 4 mg PO Q6H PRN (Reason: nausea and vomiting) quetiapine 50 mg tablet 75 mg PO BEDTIME acetaminophen [Acetaminophen Extra Strength] 650 mg PO .every 4 hours PRN (Reason: pain) Rx Instructions: 1000mg every 4 hours as needed Discontinued doxycycline hyclate 100 mg tablet 100 mg PO BID Rx Instructions: for ten days ending on 02/24/2023 Ammonium Hydroxide Operator/Mother Tester Instructions: 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 Plan is to return at d/c. Forms: Portal Instructions Discharge Date/Time: 02/22/23 15:30
--- NOTE | 2023-02-22 09:45 | SWNOTE1 ---
No notes have been placed by general surgeon at this time. Pt had peg tube placed yesterday. SW sent over updates to [facility] and the [place] med rec.
--- NOTE | 2023-02-22 10:12 | CM.NOTE ---
Rounds made with Dr. Espinosa. Plan return to [facility] today.
[2023-02-22 11:23] LABS: Glucometer 141 mg/dL (74-106)
--- NOTE | 2023-02-22 13:13 | PM.GSPRC ---
Date of procedure: 02/21/23 Indications for Procedure: patient is a 72-year-old male admitted with respiratory distress. He is quadriplegic from a traumatic brain/spine injury. Patient has had notable dysphagia and therefore PEG placement and surgical consultation was requested. The risks benefits options and potential complications of the procedure were discussed in detail to the patient's son and he agreed to proceed and consent was obtained. Pre-op diagnosis: dysphagia Post-op diagnosis: same Procedure: PEG placement Surgeon: Austen Padilla Procedure Summary: patient was brought to the and S2 suite and placed in the supine upright position. Under MAC by plaque was placed. The fiberoptic endoscope was placed through the oropharynx and advanced into the stomach without difficulty. Stomach is insufflated. No gross abnormalities were identified. The light from the endoscope was transilluminated to the upper abdominal wall which was visualized externally. This site was marked. There was noted to be correct impulse on palpation within the stomach. The surgery was then prepped and draped in sterile fashion. Lidocaine was infiltrated at the site. The cannulated needle/Angiocath was placed through the stricture with the stomach under visualization. The needle was removed. The guidewire was placed through the Angiocath into the stomach. The the wire was then grasped with a snare and brought out through the patient's mouth with the endoscope. The PEG tubing was then cleared to the guidewire. This was then pulled in place through the mouth with traction the tube exiting the small incision on the abdomen. The skin level was approximately 3 cm on the tubing. The skin bolster, clamp and cap were placed onto the PEG tubing. The endoscope was then again passed through the oropharynx into the esophagus. This was advanced into the stomach. The mushroom portion of the PEG tube appeared to be in good position and was hemostatic. The stomach was desufflated. The endoscope was removed. Dressing was applied at the PEG tubing exit site. The patient tolerated the procedure well and was transferred to the recovery area in stable condition. Estimated blood loss (mL): 2 Specimens: none Complications: No
--- NOTE | 2023-02-22 13:18 | PM.GSPN ---
Progress Note: A&P Assessment and Plan (1) SVT (supraventricular tachycardia): (2) Aspiration pneumonia: Qualifiers: Aspiration pneumonia type: due to gastric secretions Laterality: unspecified laterality Lung location: unspecified part of lung Qualified Code(s): J69.0 - Pneumonitis due to inhalation of food and vomit (3) Metabolic encephalopathy: (4) Sepsis: Qualifiers: Sepsis type: sepsis due to unspecified organism Sepsis acute organ dysfunction status: with acute organ dysfunction Severe sepsis acute organ dysfunction type: encephalopathy (5) Dysphagia: Assessment and Plan: PEG tube appears to be working well, patient may be discharged from a surgical standpoint Qualifiers: Dysphagia type: oropharyngeal phase Qualified Code(s): R13.12 - Dysphagia, oropharyngeal phase (6) Osteomyelitis of ankle: Onset Date: Unknown Qualifiers: Osteomyelitis type: other chronic Laterality: left Qualified Code(s): M86.672 - Other chronic osteomyelitis, left ankle and foot (7) Respiratory failure with hypoxia: (8) Benign prostate hyperplasia: (9) Traumatic brain injury: (10) Seizure disorder: (11) Hypertension: Subjective Subjective Interval history: patient more alert today, tube feedings running through PEG Exam Narrative Exam Narrative: abdomen is soft. PEG site is unremarkable Constitutional Vital Signs, click to edit/add: Last Vital Signs Temp 98.7 F 02/22/23 05:18 Pulse 74 02/22/23 12:01 Resp 20 02/22/23 05:18 BP 138/73 02/22/23 05:18 Pulse Ox 91 L 02/22/23 05:18 O2 Del Method Room Air 02/22/23 05:18 O2 Flow Rate 3 02/21/23 11:20 FiO2 40 02/16/23 01:00 Urinary Catheter Management Urinary Catheter Management Urethral: Cath placed during this visit: yes Urethral indwelling: Yes Reason for continuing: prolonged immobilization Insertion date: 02/14/23 Insertion time: 18:43
--- NOTE | 2023-02-22 13:55 | SWNOTE1 ---
Operative note is in and updates were sent to [facility]. Discharge orders were sent to [facility] as well. 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 RONNIE set up [employer] transportation for 2:50pm. SW left voicemail for pt's son. RONNIE notified nursing and [facility] of time as well.
== END 2023-02-22 15:30 | DRG 853 ==
LOC: ER 20:27 → ICU 23:01 → MS 02-21 08:34
PROVIDERS: Emergency Medicine; Internal Medicine; Physician Assistant; Student in an Organized Health Care Education/Training Program; Surgery; Admitting Provider Internal Medicine; Emergency Provider Emergency Medicine; PCP Family Medicine; Visit Provider Family Medicine
PROC: 0DH63UZ Insertion of Feeding Device into Stomach, Percutaneous Approach (ICD-10-PCS; principal; 2023-02-21 11:45)
DX: A41.9 Sepsis, unspecified organism (principal); G82.50 Quadriplegia, unspecified; G93.41 Metabolic encephalopathy; J18.9 Pneumonia, unspecified organism; J69.0 Pneumonitis due to inhalation of food and vomit; J96.01 Acute respiratory failure with hypoxia; I47.1 Supraventricular tachycardia; M86.672 Other chronic osteomyelitis, left ankle and foot; L97.424 Non-pressure chronic ulcer of left heel and midfoot with necrosis of bone; L97.415 Non-pressure chronic ulcer of right heel and midfoot with muscle involvement without evidence of necrosis; G89.29 Other chronic pain; G62.9 Polyneuropathy, unspecified; R13.12 Dysphagia, oropharyngeal phase; I10 Essential (primary) hypertension; N40.0 Benign prostatic hyperplasia without lower urinary tract symptoms; R65.20 Severe sepsis without septic shock; G40.909 Epilepsy, unspecified, not intractable, without status epilepticus; Z66 Do not resuscitate; Z51.5 Encounter for palliative care; S14.109S Unspecified injury at unspecified level of cervical spinal cord, sequela; S06.9XAS Unspecified intracranial injury with loss of consciousness status unknown, sequela; Z79.899 Other long term (current) drug therapy; Z79.82 Long term (current) use of aspirin; Z88.8 Allergy status to other drugs, medicaments and biological substances; Z88.0 Allergy status to penicillin
CPT/HCPCS: 36415; 36600; 70450; 70470; 71045; 73650; 74018; 80048; 80053; 80150; 80164; 80202; 81003; 81015; 82140; 82550; 82805; 82948; 83605; 83735; 83880; 84484; 85007; 85025; 85610; 85652; 85730; 86140; 87040; 87070; 87086; 87150; 87186; 92526; 92610; 93005; 94002; 94003; 94761; 96365; 96366; 96367; 96368; 96372; 96375; 96376; 99291; J0278; J2704; J3370; J3480; Q9967

== ENCOUNTER 2023-03-07 12:59 | Outpatient (OUT) | payer MEDICARE, MEDICAID, SELFPAY | END 2023-03-07 13:00 | disposition home or self-care (01) | LOC: WC 12:59 | PROVIDERS: PCP Family Medicine; Visit Provider Podiatrist Foot & Ankle Surgery | DX: L89.620 Pressure ulcer of left heel, unstageable (principal); L89.610 Pressure ulcer of right heel, unstageable | CPT/HCPCS: A6213; G0463 ==

== ENCOUNTER 2023-03-10 02:49 | Outpatient (OUT) | payer MEDICARE, MEDICAID, SELFPAY ==
[2023-03-10 09:19] LABS: Basophils Absolute Auto 0.1 10^3/uL (0.0-0.1); Basophils Percent Auto 0.3 % (0.2-2.0); Eosinophils Absolute Auto 0.1 10^3/uL (0.0-0.7); Eosinophils Percent Auto 0.5 % (0.9-7.0); Hematocrit 39.7 % (42.0-54.0); Hemoglobin 12.6 g/dL (14.0-18.0); Immature Granulocytes Abs Auto 0.11 10^3/uL (0.00-0.03); Immature Granulocytes Pct Auto 0.5 % (0.0-0.5); Lymphocytes Absolute Auto 1.7 10^3/uL (1.2-3.8); Lymphocytes Percent Auto 8.3 % (20.5-60.0); Mean Corpuscular HGB Conc 31.7 g/dL (29.9-35.2); Mean Corpuscular Hemoglobin 29.2 pg (25.9-34.0); Mean Corpuscular Volume 91.9 fL (80.0-94.0); Mean Platelet Volume 10.1 fL (9.5-13.5); Monocytes Absolute Auto 1.7 10^3/uL (0.3-0.8); Monocytes Percent Auto 8.5 % (1.7-12.0); Neutrophils Absolute Auto 16.5 10^3/uL (1.4-6.5); Neutrophils Percent Auto 81.9 % (43.0-75.0); Platelet Count 451 10^3/uL (150-450); Red Blood Count 4.32 10^6/uL (4.70-6.10); Red Cell Distribution Width 15.1 % (11.0-15.0); White Blood Count 20.1 10^3/uL (4.0-11.0)
[2023-03-10 10:23] LABS: Alanine Aminotransferase 57 U/L (16-63); Albumin Globulin Ratio 0.5; Albumin Level 2.7 g/dL (3.4-5.0); Alkaline Phosphatase 126 U/L (46-116); Anion Gap 9.9; Aspartate Amino Transferase 25 U/L (15-37); BUN Creatinine Ratio 54.4; Bilirubin Total 0.2 mg/dL (0.2-1.0); Calcium 9.6 mg/dL (8.5-10.1); Carbon Dioxide 30.5 mmol/L (21.0-32.0); Chloride 108 mmol/L (98-107); Estimated GFR (African America >60 (>=60); Estimated GFR (Non-African Ame >60 (>=60); Globulin 5.6 g/dL; Glucose 145 mg/dL (74-106); Potassium 4.4 mmol/L (3.5-5.1); Sodium 144 mmol/L (136-145); Total Protein 8.3 g/dL (6.4-8.2)
== END 2023-03-10 02:50 | disposition home or self-care (01) ==
LOC: LAB 02:53
PROVIDERS: PCP Family Medicine; Visit Provider Family Medicine
DX: A41.9 Sepsis, unspecified organism (principal); N19 Unspecified kidney failure; Z93.1 Gastrostomy status
CPT/HCPCS: 36415; 80053; 85025

== ENCOUNTER 2023-04-03 09:14 | Outpatient (OUT) | payer MEDICARE, MEDICAID, SELFPAY | END 2023-04-03 09:15 | disposition home or self-care (01) | LOC: WC 09:14 | PROVIDERS: PCP Family Medicine; Visit Provider Physician Assistant | DX: L89.620 Pressure ulcer of left heel, unstageable (principal); L89.610 Pressure ulcer of right heel, unstageable | CPT/HCPCS: A6213; G0463 ==

== ENCOUNTER 2023-04-24 15:51 | Outpatient (OUT) | payer MEDICARE, MEDICAID, SELFPAY | END 2023-04-24 15:52 | disposition home or self-care (01) | LOC: WC 15:51 | PROVIDERS: PCP Family Medicine; Visit Provider Physician Assistant | DX: L89.620 Pressure ulcer of left heel, unstageable (principal); L89.610 Pressure ulcer of right heel, unstageable | CPT/HCPCS: G0463 ==

== ENCOUNTER 2023-05-15 10:26 | Outpatient (OUT) | payer MEDICARE, MEDICAID, SELFPAY | END 2023-05-15 10:27 | disposition home or self-care (01) | LOC: WC 10:33 | PROVIDERS: PCP Family Medicine; Visit Provider Physician Assistant | DX: L89.620 Pressure ulcer of left heel, unstageable (principal); L89.610 Pressure ulcer of right heel, unstageable | CPT/HCPCS: A6213; G0463 ==

== ENCOUNTER 2023-06-06 11:59 | Outpatient (OUT) | payer MEDICARE, MEDICAID, SELFPAY | END 2023-06-06 12:00 | disposition home or self-care (01) | LOC: WC 12:01 | PROVIDERS: PCP Family Medicine; Visit Provider Podiatrist Foot & Ankle Surgery | DX: L89.620 Pressure ulcer of left heel, unstageable (principal); L89.610 Pressure ulcer of right heel, unstageable | CPT/HCPCS: A6213; G0463 ==

== ENCOUNTER 2023-07-10 10:31 | Outpatient (OUT) | payer MEDICARE, MEDICAID, SELFPAY | END 2023-07-10 10:32 | disposition home or self-care (01) | LOC: WC 10:31 | PROVIDERS: PCP Family Medicine; Visit Provider Physician Assistant | DX: L89.610 Pressure ulcer of right heel, unstageable (principal) | CPT/HCPCS: A6213; G0463 ==

== ENCOUNTER 2023-07-12 03:37 | Outpatient (REF) | payer MEDICARE, MEDICAID, SELFPAY ==
[2023-07-12 09:27] LABS: Hematocrit 36.2 % (42.0-54.0); Mean Corpuscular HGB Conc 30.4 g/dL (29.9-35.2); Mean Corpuscular Hemoglobin 28.7 pg (25.9-34.0); Mean Corpuscular Volume 94.5 fL (80.0-94.0); Mean Platelet Volume 9.4 fL (9.5-13.5); Platelet Count 437 10^3/uL (150-450); Red Blood Count 3.83 10^6/uL (4.70-6.10); Red Cell Distribution Width 15.4 % (11.0-15.0); White Blood Count 23.1 10^3/uL (4.0-11.0)
[2023-07-12 09:57] LABS: Anion Gap 12.1; Calcium 10.2 mg/dL (8.5-10.1); Carbon Dioxide 30.8 mmol/L (21.0-32.0); Chloride 104 mmol/L (98-107); Estimated GFR (African America >60 (>=60); Estimated GFR (Non-African Ame >60 (>=60); Glucose 156 mg/dL (74-106); Potassium 4.9 mmol/L (3.5-5.1); Sodium 142 mmol/L (136-145)
[2023-07-12 10:00] LABS: Free T4 0.78 ng/dL (0.76-1.46)
[2023-07-12 11:25] LABS: Band Neutrophils Absolute 0.7 10^3/uL (0.0-0.3); Lymphocytes Absolute Manual 0.69 10^3/uL (1.20-3.80); Monocytes Absolute Manual 1.84 10^3/uL (0.30-0.80); Segmented Neut Absolute Manual 19.86 10^3/uL (1.4-6.5)
[2023-07-12 12:39] LABS: Bilirubin Urine NEGATIVE (NEGATIVE); Blood Urine NEGATIVE (NEGATIVE); Clarity Urine CLEAR (CLEAR); Color Urine YELLOW (YELLOW); Glucose Urine UA NEGATIVE (NEGATIVE); Ketones Urine NEGATIVE (NEGATIVE); Leukocyte Esterase Urine NEGATIVE (NEGATIVE); Nitrite Urine NEGATIVE (NEGATIVE); Protein Urine NEGATIVE (NEG/TRACE); Specific Gravity Urine <=1.005 (1.005-1.025); Urobilinogen Urine 0.2 EU/dL (0.2-1.0)
--- OUTSIDE RECORDS SUMMARY | 2023-07-12 12:42 | XMS_ITS | CCD ---
Author Name Unknown Address [address] [place] [address] Organization [facility] Care Team Providers Care It Desktop Support Technician Name Role Phone REQUEST, NONE LISTED Primary Care Unavailable TD HURST Attending Unavailable TD HURST Consulting Unavailable TD HURST Admitting Unavailable Guilherme MCLAIN, [facility] Provider [facility] Unavailable MELODIE NIXON Referring Unavailable [facility] Referring Unavailable SCOTTMED, [facility] Primary Care Unavailable SCOUT HOLCOMB Referring Unavailable [facility]ME, [facility] Primary Care Unavailable ULISES ., DR DELISA Mccloud Admitting Unavaila ble GRILLIS ., DR DELISA Mccloud Attending Unavaila ble GRILLIS ., DR DELISA Mccloud Consulting Unavaila ble FAWWAD, MEDEROS H Primary Care Unavailable ZIEBER, DR KYLE Boyd Consulting Unavailable FAWWAD, MEDEROS H Admitting Unavailable FAWWAD, MEDEROS H Attending Unavailable FAWWAD, MEDEROS H Primary Care Unavailable FAWWAD, MEDEROS H Consulting Unavailable FAWWAD, MEDEROS H Primary Care Unavailable HUSSAIN, DR SAHU Admitting Unavailable HUSSAIN, DR SAHU Attending Unavailable HUSSAIN, DR SAHU Consulting Unavailable FAWWAD, MEDEROS H Primary Care Unavailable ANKIT VALENCIA Admitting Unavailable ANKIT VALENCIA Attending Unavailable ARIS ., DR APPIAH Consulting Unavailable FAWWAD, MEDEROS H Admitting Unavailable FAWWAD, MEDEROS H Attending Unavailable FAWWAD, MEDEROS H Primary Care Unavailable KYLE BOYLE Consulting Unavailable FAWWAD, MEDEROS H Consulting Unavailable SISTER, CHECO Consulting Unavailable ITKIN, MYKEL Consulting Unavailable OWOYELE, DIONNE Consulting Unavailable FAWWAD, MEDEROS H Primary Care Unavailable HUSSAIN, DR SAHU Admitting Unavailable HUSSAIN, DR SAHU Attending Unavailable HUSSAIN, DR SAHU Consulting Unavailable Allergies Allergy Classification Reported Allergen(s) Allergy Type Date of Onset Reaction(s) Facility (2 sources) Propoxyphene Drug Allergy [facility] (1 source) Penicillins Drug allergy (disorder) 01-30-2014 [facility] Problems Active Problems Problem Classification Problem Date Documented Date Episodic/Chronic Acute and unspecified renal failure (5 sources) Acute kidney failure, unspecified; Translations: [Acute kidney failure, unspecified] Onset: 10-16-2022 Episodic Bacterial infection; unspecified site (2 sources) Bacteremia; Translations: [Other staphylococcus as the cause of diseases classified elsewhere] Onset: 10-31-2022 Episodic Chronic obstructive pulmonary disease and bronchiectasis (1 source) Chronic obstructive pulmonary disease, unspecified; Translations: [COPD UNSPECIFIED] Onset: 11-24-2022 Chronic Chronic ulcer of skin (5 sources) Pressure ulcer of left heel, unstageable; Translations: [Pressure ulcer of right heel, unstageable] Onset: 11-25-2022 Chronic Diabetes mellitus without complication (4 sources) Type 2 diabetes mellitus without complications; Translations: [TYPE 2 DM WITHOUT COMPLICATIONS] Onset: 11-18-2022 Chronic Essential hypertension (1 source) Essential (primary) hypertension; Translations: [ESSENTIAL PRIMARY HYPERTENSION] Onset: 10-31-2022 Chronic Fluid and electrolyte disorders (2 sources) Hyperosmolality and hypernatremia; Translations: [Hyperkalemia] Onset: 10-31-2022 Episodic Osteoarthritis (1 source) Unilateral primary osteoarthritis, right hip; Translations: [UNI PRIM OSTEOARTHRITIS RT HIP] Onset: 06-25-2022 Chronic Other aftercare (1 source) 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; Translations: [OTH RESIDENTIAL CURRENT DRUG THERAPY] Onset: 10-31-2022 Episodic Other circulatory disease (1 source) Personal history of transient ischemic attack (TIA), and cerebral infarction without residual deficits; Translations: [PERS HX TIA AND CI NO RESID DEFICIT] Onset: 10-31-2022 Episodic Other diseases of kidney and ureters (2 sources) Disorder of kidney and ureter, unspecified; Translations: [Disorder of kidney and ureter, unspecified] Onset: 10-31-2022 Episodic Other injuries and conditions due to external causes (1 source) Elevated urine levels of drugs, medicaments and biological substances; Translations: [ELEV URIN LEVELS RX MEDS AND BIO SUBS] Onset: 10-31-2022 Episodic Other nervous system disorders (1 source) Metabolic encephalopathy; Translations: [METABOLIC ENCEPHALOPATHY] Onset: 10-31-2022 Chronic Other nervous system disorders (1 source) Polyneuropathy, unspecified; Translations: [POLYNEUROPATHY UNSPECIFIED] Onset: 10-31-2022 Chronic Schizophrenia and other psychotic disorders (1 source) Schizoaffective disorder, depressive type; Translations: [SCHIZOAFFECTIVE D/O DEPRESSIVE TYPE] Onset: 10-31-2022 Chronic Substance-related disorders (1 source) Nicotine dependence, cigarettes, uncomplicated; Translations: [NICOTINE DEPEND CIGARETTES UNCOMP] Onset: 10-31-2022 Chronic Substance-related disorders (2 sources) Other psychoactive substance use, unspecified, uncomplicated; Translations: [Other psychoactive substance use, unspecified, uncomplicated] Onset: 10-26-2022 Episodic Unclassified (1 source) CONTACT W/AND (SUSP) EXPOS COVID-19; Translations: [CONTACT W/AND (SUSP) EXPOS COVID-19] Onset: 10-31-2022 Urinary tract infections (2 sources) Urinary tract infection, site not specified; Translations: [Urinary tract infection, site not specified] Onset: 10-31-2022 Episodic Past or Other Problems Problem Classification Problem Date Documented Da te Episodic/Chronic Other circulatory disease (1 source) Other specified symptoms and signs involving the circulatory and respiratory systems; Translations: [OTH SPEC SX SIGNS INVLV CIRC RS] Onset: 07-09-2022 Episodic Other connective tissue disease (4 sources) Pain in right leg; Translations: [PAIN IN RIGHT LEG] Onset: 07-04-2022 Episodic Other non-traumatic joint disorders (4 sources) Pain in right hip; Translations: [PAIN IN RIGHT HIP] Onset: 06-22-2022 Episodic Results Test Name Value Interpretation Reference Range Facil ity CBC AUTO DIFFon 12-21-2022 BASO # 0.1 103/ul Normal 0.0-0.1 [facility] Comment on above: Performed By: #### V ITB1T #### [facility] [address] [place] [address] Dr. Brittanie Burns Basophils/100 WBC (Bld) 0.8 % Normal 0.2-2.0 [facility] Comment on above: Performed By: #### V ITB1T #### [facility] [address] [place] [address] Dr. Brittanie Burns EO # 0.6 103/ul Normal 0.0-0.7 [facility] Comment on above: Performed By: #### V ITB1T #### [facility] [address] [place] [address] Dr. Brittanie Burns Eosinophils/100 WBC (Bld) 6.6 % Normal 0.9-7.0 [facility] Comment on above: Performed By: #### V ITB1T #### [facility] [address] [place] [address] Dr. Brittanie Burns Erythrocyte distribution wid th (RBC) [Ratio] 14.8 % Normal 11.0-15.0 [facility] Comment on above: Performed By: #### V ITB1T #### [facility] [address] [place] [address] Dr. Brittanie Burns Hematocrit (Bld) [Volume fraction] 35.6 % Critically low 42.0-54.0 [facility] Comment on above: Performed By: #### V ITB1T #### [facility] [address] [place] [address] Dr. Brittanie Burns Hemoglobin (Bld) [Mass/Vol] 11.7 g/dL Critically low 14.0 -18.0 [facility] Comment on above: Performed By: #### V ITB1T #### [facility] [address] [place] [address] Dr. Brittanie Burns IG # 0.04 10e3/ul Critically high 0.00-0.03 [facility] Comment on above: Performed By: #### V ITB1T #### [facility] [address] [place] [address] Dr. Brittanie Burns IG % 0.5 % Normal 0.0-0.5 [facility] Comment on above: Performed By: #### V ITB1T #### [facility] [address] [address] [address] Brittanie Burns LYMPH # 2.0 103/ul Normal 1.2-3.8 [facility] Comment on above: Performed By: #### V ITB1T #### [facility] [address] [address] [address] Brittanie Burns Lymphocytes/100 WBC (Bld) 22.7 % Normal 20.5-60.0 [facility] Comment on above: Performed By: #### V ITB1T #### [facility] [address] [address] [address] Brittanie Burns MANUAL DIFF REQ NO Normal [facility] Comment on above: Performed By: #### V ITB1T #### [facility] [address] [place] [address] Dr. Brittanie Burns MCH (RBC) [Entitic mass] 30.8 pg Normal 25.9-34.0 [facility] Comment on above: Performed By: #### V ITB1T #### [facility] [address] [place] [address] Dr. Brittanie Burns MCHC (RBC) [Mass/Vol] 32.9 g/dL Normal 29.9-35.2 [facility] Comment on above: Performed By: #### V ITB1T #### [facility] [address] [place] [address] Dr. Brittanie Burns MCV (RBC) [Entitic vol] 93.7 fL Normal 80.0-94.0 [facility] Comment on above: Performed By: #### V ITB1T #### [facility] [address] [place] [address] Dr. Brittanie Burns MONO # 1.1 103/ul Critically high 0.3-0.8 [facility] Comment on above: Performed By: #### V ITB1T #### [facility] [address] [place] [address] Dr. Brittanie Bunrs Monocytes/100 WBC (Bld) 12.7 % Critically high 1.7-12. 0 [facility] Comment on above: Performed By: #### V ITB1T #### [facility] [address] [place] [address] Dr. Brittanie Burns NEUT # 4.9 103/ul Normal 1.4-6.5 [facility] Comment on above: Performed By: #### V ITB1T #### [facility] [address] [place] [address] Dr. Brittanie Burns Neutrophils/100 WBC (Bld) 56.7 % Normal 43.0-75.0 [facility] Comment on above: Performed By: #### V ITB1T #### [facility] [address] [place] [address] Dr. Brittanie Burns Platelet mean volume (Bld) [Entitic vol] 9.2 fL Critically low 9.5-13.5 [facility] Comment on above: Performed By: #### V ITB1T #### [facility] [address] [place] [address] Dr. Brittanie Burns PLT 343 103/ul Normal 150-450 [facility] Comment on above: Performed By: #### V ITB1T #### [facility] [address] [place] [address] Dr. Brittanie Burns RBC 3.80 106/ul Critically low 4.70-6.10 [facility] Comment on above: Performed By: #### V ITB1T #### [facility] [address] [place] [address] Dr. Brittanie Burns WBC 8.7 103/ul Normal 4.0-11.0 [facility] Comment on above: Performed By: #### V ITB1T #### [facility] [address] [place] [address] Dr. Brittanie Burns GLYCOHEMOGLOBIN A1Con 2022 ADA RECOMMENDATION SEE BELOW Normal [facility] Comment on above: Result Comment: ADA RECOMMENDED LIMIT 4.0 - 6.0 ADA THERAPEUTIC TARGET < 7.0 ACTION SUGGESTED > 7.0 Performed By: #### D RUGRPD #### [facility] [address] [place] [address] Dr. Brittanie Burns Glucose [Mass/Vol] 117 mg/dL Normal [facility] Comment on above: Performed By: #### D RUGRPD #### [facility] [address] [place] [address] Dr. Brittanie Burns HbA1c (Bld) [Mass fraction] 5.7 % Normal 4.5-6.2 [facility] Comment on above: Performed By: #### D RUGRPD #### [facility] [address] [place] [address] Dr. Brittanie Burns PROF 14(COMP METB)on 023 Albumin [Mass/Vol] 2.8 g/dL Critically low 3.4-5.0 [facility] Comment on above: Performed By: #### C BC #### [facility] [address] [place] [address] Dr. Brittanie Burns Albumin/Globulin [Mass ratio] 0.6 {ratio} Normal [facility] Comment on above: Performed By: #### C BC #### [facility] [address] [place] [address] Dr. Brittanie Burns ALP [Catalytic activity/Vol] 68 U/L Normal 46-116 [facility] Comment on above: Performed By: #### C BC #### [facility] [address] [place] [address] Dr. Brittanie Burns ALT [Catalytic activity/Vol] 18 U/L Normal 16-63 [facility] Comment on above: Performed By: #### C BC #### [facility] [address] [place] [address] Dr. Brittanie Burns Anion gap [Moles/Vol] 11.4 mmol/L Normal [facility] Comment on above: Performed By: #### C BC #### [facility] [address] [place] [address] Dr. Brittanie Burns AST [Catalytic activity/Vol] 22 U/L Normal 15-37 [facility] Comment on above: Performed By: #### C BC #### [facility] [address] [place] [address] Dr. Brittanie Burns Bilirubin [Mass/Vol] 0.3 mg/dL Normal 0.2-1.0 [facility] Comment on above: Performed By: #### C BC #### [facility] [address] [place] [address] Dr. Brittanie Burns Calcium [Mass/Vol] 9.5 mg/dL Normal 8.5-10.1 [facility] Comment on above: Performed By: #### C BC #### [facility] [address] [address] [address] Brittanie Burns Chloride [Moles/Vol] 102 mmol/L Normal 98-107 [facility] Comment on above: Performed By: #### C BC #### [facility] [address] [place] [address] Dr. Brittanie Burns CO2 [Moles/Vol] 31.3 mmol/L Normal 21.0-32.0 [facility] Comment on above: Performed By: #### C BC #### [facility] [address] [place] [address] Dr. Brittanie Burns Creatinine [Mass/Vol] 1.18 mg/dL Normal 0.70-1.30 [facility] Comment on above: Performed By: #### C BC #### [facility] [address] [place] [address] Dr. Brittanie Burns EGFR-AF SLOVAK >60 Normal >=60 [facility] Comment on above: Performed By: #### C BC #### [facility] [address] [place] [address] Dr. Brittanie Burns EGFR-NON AF SLOVAK >60 Normal >=60 [facility] Comment on above: Performed By: #### C BC #### [facility] [address] [place] [address] Dr. Brittanie Burns Globulin (S) [Mass/Vol] 4.9 g/dL Normal [facility] Comment on above: Performed By: #### C BC #### [facility] [address] [place] [address] Dr. Brittanie Burns Glucose [Mass/Vol] 133 mg/dL Critically high 74-106 [facility] Comment on above: Performed By: #### C BC #### [facility] [address] [address] [address] Brittanie Burns Potassium [Moles/Vol] 3.7 mmol/L Normal 3.5-5.1 [facility] Comment on above: Performed By: #### C BC #### [facility] [address] [address] [address] Brittanie Burns Protein [Mass/Vol] 7.7 g/dL Normal 6.4-8.2 [facility] Comment on above: Performed By: #### C BC #### [facility] [address] [address] [address] Brittanie Burns Sodium [Moles/Vol] 141 mmol/L Normal 136-145 [facility] Comment on above: Performed By: #### C BC #### [facility] [address] [address] [address] Brittanie Burns Urea nitrogen [Mass/Vol] 25.0 mg/dL Critically high 7.0-18 .0 [facility] Comment on above: Performed By: #### C BC #### [facility] [address] [address] [address] Brittanie Burns Urea nitrogen/Creatinine [Mass ratio] 21.2 mg/mg Normal [facility] Comment on above: Performed By: #### C BC #### [facility] [address] [address] [address] Brittanie Burns TSHon 12-21-2022 TSH 2.348 uIU/mL Normal 0.358-3.740 [facility] Comment on above: Performed By: #### B 12FOL #### [facility] [id number] Brittanie Burns VITAMIN D 25 OHon 12-21-2022 VIT D 25-OH 41.1 ng/mL Normal [facility] Comment on above: Performed By: #### B 12FOL #### [facility] [address] [address] [address] Brittanie Burns VIT D RANGES SEE BELOW Normal [facility] Comment on above: Result Comment: <20 ng/mL Vit D deficient 20 - <30 ng/mL Vit D insufficient 30 - 100 ng/mL Vit D sufficient >100 ng/mL Potential Toxicity Performed By: #### B 12FOL #### [facility] [address] [place] [address] Dr. Brittanie Burns PROF 14(COMP METB)on 023 Albumin [Mass/Vol] 2.7 g/dL Critically low 3.4-5.0 [facility] Comment on above: Performed By: #### C BC #### [facility] [address] [place] [address] Dr. Brittanie Burns Albumin/Globulin [Mass ratio] 0.6 {ratio} Normal [facility] Comment on above: Performed By: #### C BC #### [facility] [address] [place] [address] Dr. Brittanie Burns ALP [Catalytic activity/Vol] 68 U/L Normal 46-116 [facility] Comment on above: Performed By: #### C BC #### [facility] [address] [place] [address] Dr. Brittanie Burns ALT [Catalytic activity/Vol] 27 U/L Normal 16-63 [facility] Comment on above: Performed By: #### C BC #### [facility] [address] [place] [address] Dr. Brittanie Burns Anion gap [Moles/Vol] 12.3 mmol/L Normal [facility] Comment on above: Performed By: #### C BC #### [facility] [address] [place] [address] Dr. Brittanie Burns AST [Catalytic activity/Vol] 40 U/L Critically high 15 -37 [facility] Comment on above: Performed By: #### C BC #### [facility] [address] [place] [address] Dr. Brittanie Burns Bilirubin [Mass/Vol] 0.2 mg/dL Normal 0.2-1.0 [facility] Comment on above: Performed By: #### C BC #### [facility] [address] [place] [address] Dr. Brittanie Burns Calcium [Mass/Vol] 10.0 mg/dL Normal 8.5-10.1 [facility] Comment on above: Performed By: #### C BC #### [facility] [address] [place] [address] Dr. Brittanie Burns Chloride [Moles/Vol] 102 mmol/L Normal 98-107 [facility] Comment on above: Performed By: #### C BC #### [facility] [address] [place] [address] Dr. Brittanie Burns CO2 [Moles/Vol] 32.2 mmol/L Critically high 21.0-32.0 [facility] Comment on above: Performed By: #### C BC #### [facility] [address] [place] [address] Dr. Brittanie Burns Creatinine [Mass/Vol] 1.09 mg/dL Normal 0.70-1.30 [facility] Comment on above: Performed By: #### C BC #### [facility] [address] [place] [address] Dr. Brittanie Burns EGFR-AF SLOVAK >60 Normal >=60 [facility] Comment on above: Performed By: #### C BC #### [facility] [address] [place] [address] Dr. Brittanie Burns EGFR-NON AF SLOVAK >60 Normal >=60 [facility] Comment on above: Performed By: #### C BC #### [facility] [address] [place] [address] Dr. Brittanie Burns Globulin (S) [Mass/Vol] 4.9 g/dL Normal [facility] Comment on above: Performed By: #### C BC #### [facility] [address] [place] [address] Dr. Brittanie Burns Glucose [Mass/Vol] 98 mg/dL Normal 74-106 [facility] Comment on above: Performed By: #### C BC #### [facility] [address] [place] [address] Dr. Brittanie Burns Potassium [Moles/Vol] 4.5 mmol/L Normal 3.5-5.1 [facility] Comment on above: Performed By: #### C BC #### [facility] [address] [address] [address] Brittanie Burns Protein [Mass/Vol] 7.6 g/dL Normal 6.4-8.2 [facility] Comment on above: Performed By: #### C BC #### [facility] [address] [address] [address] Brittanie Burns Sodium [Moles/Vol] 142 mmol/L Normal 136-145 [facility] Comment on above: Performed By: #### C BC #### [facility] [address] [address] [address] Brittanie Burns Urea nitrogen [Mass/Vol] 26.0 mg/dL Critically high 7.0-18 .0 [facility] Comment on above: Performed By: #### C BC #### [facility] [address] [address] [address] Brittanie Burns Urea nitrogen/Creatinine [Mass ratio] 23.9 mg/mg Normal [facility] Comment on above: Performed By: #### C BC #### [facility] [address] [address] [address] Brittanie Burns [facility] mm/hr Critically high <=20 [facility] Comment on above: Performed By: #### C BC #### [facility] [address] [address] [address] Brittanie Burns URIC ACID SERUMon 11-18-2022 Urate [Mass/Vol] 4.4 mg/dL Normal 3.5-7.2 [facility] Comment on above: Performed By: #### C BC #### [facility] [address] [place] [address] Dr. Brittanie Burns Basic Metabolic Panelon 10-22 Anion gap [Moles/Vol] 7 mmol/L Low 9 - 17 mmol/L [facility] Calcium [Mass/Vol] 9.8 mg/dL 8.6 - 10.4 mg/dL [facility] Chloride [Moles/Vol] 99 mmol/L 98 - 107 mmol/L [facility] CO2 [Moles/Vol] 31 mmol/L 20 - 31 mmol/L [facility] Creatinine [Mass/Vol] 1.36 mg/dL High 0.70 - 1.20 mg /dL [facility] GFR/1.73 sq M.predicted MDRD (S/P/Bld) [Vol rate/Area] 55 mL/min/{1.73_m2} Low - PINF [facility] Comment on above: These results are not intended for use in patients <18 years of age. eGFR results are calculated without a race factor using the 2020 CKD-EPI equation. Careful clinical correlation is recommended, particularly when comparing to results calculated using previous equations. The CKD-EPI equation is less accurate in patients with extremes of muscle mass, extra-renal metabolism of creatine, excessive creatine ingestion, or following therapy that affects renal tubular secretion. Glucose [Mass/Vol] 114 mg/dL High 70 - 99 mg/dL [facility] Interpretation and review of laboratory results Abnormal [facility] Potassium [Moles/Vol] 4.5 mmol/L 3.7 - 5.3 mmol /L [facility] Sodium [Moles/Vol] 137 mmol/L 135 - 144 mmol/L [facility] Urea nitrogen [Mass/Vol] 40 mg/dL High 8 - 23 mg/d L [facility] Urea nitrogen/Creatinine (Bl d) [Mass ratio] 29 High 9 - 20 [facility] Basic Metabolic Profon 10-31 Anion gap [Moles/Vol] 7 mmol/L Low 9-17 [facility] Comment on above: Performed By: #### B MP #### [facility] [address] [place] [address] Ventilating Expert: Oscar Watkins MD BUN/CRE Ratio 29 High 9-20 [facility] Comment on above: Performed By: #### B MP #### [facility] [address] [place] [address] Ventilating Expert: Oscar Watkins MD Calcium [Mass/Vol] 9.8 mg/dL Normal 8.6-10.4 [facility] Comment on above: Performed By: #### B MP #### [facility] [address] [place] [address] Ventilating Expert: Oscar Watkins MD Chloride [Moles/Vol] 99 mmol/L Normal 98-107 [facility] Comment on above: Performed By: #### B MP #### [facility] [address] [place] [address] Ventilating Expert: Oscar Watkins MD CO2 [Moles/Vol] 31 mmol/L Normal 20-31 [facility] Comment on above: Performed By: #### B MP #### [facility] [address] [place] [address] Ventilating Expert: Oscar Watkins MD Creatinine [Mass/Vol] 1.36 mg/dL High 0.70-1.20 [facility] Comment on above: Performed By: #### B MP #### [facility] [address] [place] [address] Ventilating Expert: Oscar Watkins MD GFR/1.73 sq M.predicted sandrita g non-blacks MDRD (S/P/Bld) [Vol rate/Area] 55 mL/min/{1.73_m2} Low >60 [facility] Comment on above: Result Comment: These results are not intended for use in patients <18 years of age. eGFR results are calculated without a race factor using the 2020 CKD-EPI equation. Careful clinical correlation is recommended, particularly when comparing to results calculated using previous equations. The CKD-EPI equation is less accurate in patients with extremes of muscle mass, extra-renal metabolism of creatine, excessive creatine ingestion, or following therapy that affects renal tubular secretion. Performed By: #### B MP #### [facility] [address] [place] [address] Ventilating Expert: Oscar Watkins MD Glucose [Mass/Vol] 114 mg/dL High 70-99 [facility] Comment on above: Performed By: #### B MP #### [facility] [address] [place] [address] Ventilating Expert: Oscar Watkins MD Potassium [Moles/Vol] 4.5 mmol/L Normal 3.7-5.3 [facility] Comment on above: Performed By: #### B MP #### [facility] [address] [place], [place] [id number] Ventilating Expert: Oscar Watkins MD Sodium [Moles/Vol] 137 mmol/L Normal 135-144 [facility] Comment on above: Performed By: #### B MP #### [facility] [address] [place] [address] Ventilating Expert: Oscar Watkins MD Urea nitrogen [Mass/Vol] 40 mg/dL High 8-23 [facility] Comment on above: Performed By: #### B MP #### [facility] [address] [place] [address] Ventilating Expert: Oscar Watkins MD Lipid Panelon 10-26-2022 Cholesterol [Mass/Vol] 146 mg/dL NINF - 200 mg /dL [facility] Comment on above: Cholesterol Guidelines: <200 Desirable 200-240 Borderline >240 Undesirable Cholesterol in HDL [Mass/Vol] 24 mg/dL Low 40 - P INF mg/dL [facility] Comment on above: HDL Guidelines: <40 Undesirable 40-59 Borderline >59 Desirable Cholesterol in LDL [Mass/Vol] 97 mg/dL 0 - 13 0 mg/dL [facility] Comment on above: LDL Guidelines: <100 Desirable 100-129 Near to/above Desirable 130-159 Borderline >159 Undesirable Direct (measured) LDL and calculated LDL are not interchangeable tests. Cholesterol.total/Cholestero l in HDL [Mass ratio] 6.1 {ratio} High NINF - 5 [facility] Interpretation and review of laboratory results Abnormal [facility] Triglyceride [Mass/Vol] 123 mg/dL NINF - 150 mg/dL [facility] Comment on above: Triglyceride Guidelines: <150 Desirable 150-199 Borderline 200-499 High >499 Very high Based on AHA Guidelines for fasting triglyceride, April 2012. [facility] Lipid Profileon 10-26-2022 Cholesterol [Mass/Vol] 146 mg/dL Normal <200 [facility] Comment on above: Result Comment: Cholesterol Guidelines: <200 Desirable 200-240 Borderline >240 Undesirable Performed By: #### L IPR #### [facility] [employer] [address] [place] [id number] Ventilating Expert: Moo Calero MD Cholesterol in HDL [Mass/Vol] 24 mg/dL Low >40 [facility] Comment on above: Result Comment: HDL Guidelines: <40 Undesirable 40-59 Borderline >59 Desirable Performed By: #### L IPR #### [address] [address] Ventilating Expert: Moo Calero MD Cholesterol in LDL [Mass/Vol] 97 mg/dL Normal 0-130 [facility] Comment on above: Result Comment: LDL Guidelines: <100 Desirable 100-129 Near to/above Desirable 130-159 Borderline >159 Undesirable Direct (measured) LDL and calculated LDL are not interchangeable tests. Performed By: #### L IPR #### [facility] [employer] [address] [place] [id number] Ventilating Expert: Moo Calero MD Cholesterol.total/Cholestero l in HDL [Mass ratio] 6.1 {ratio} High <5 [facility] Comment on above: Performed By: #### L IPR #### [facility] [employer] [address] [place] [id number] Ventilating Expert: Moo Calero MD Triglyceride [Mass/Vol] 123 mg/dL Normal <150 [facility] Comment on above: Result Comment: Triglyceride Guidelines: <150 Desirable 150-199 Borderline 200-499 High >499 Very high Based on AHA Guidelines for fasting triglyceride, April 2012. Performed By: #### L IPR #### [facility] [employer] [address] [place] [address] Ventilating Expert: Moo Calero MD Basic Metabolic Profon 10-24 Anion gap [Moles/Vol] 13 mmol/L Normal 9-17 [facility] Comment on above: Performed By: #### B MP #### [facility] [address] [place], [place] [id number] Ventilating Expert: Oscar Watkins MD BUN/CRE Ratio 21 High 9-20 [facility] Comment on above: Performed By: #### B MP #### [facility] [address] [place], [place] [id number] Ventilating Expert: Oscar Watkins MD Calcium [Mass/Vol] 9.8 mg/dL Normal 8.6-10.4 [facility] Comment on above: Performed By: #### B MP #### [facility] [address] [place], [place] [id number] Ventilating Expert: Oscar Watkins MD Chloride [Moles/Vol] 109 mmol/L High 98-107 [facility] Comment on above: Performed By: #### B MP #### [facility] [address] [place], [place] [id number] Ventilating Expert: Oscar Watkins MD CO2 [Moles/Vol] 27 mmol/L Normal 20-31 [facility] Comment on above: Performed By: #### B MP #### [facility] [address] [place], [place] [id number] Ventilating Expert: Oscar Watkins MD Creatinine [Mass/Vol] 1.68 mg/dL High 0.70-1.20 [facility] Comment on above: Performed By: #### B MP #### [facility] [address] [place] [address] Ventilating Expert: Oscar Watkins MD GFR/1.73 sq M.predicted sandrita g non-blacks MDRD (S/P/Bld) [Vol rate/Area] 43 mL/min/{1.73_m2} Low >60 [facility] Comment on above: Result Comment: These results are not intended for use in patients <18 years of age. eGFR results are calculated without a race factor using the 2020 CKD-EPI equation. Careful clinical correlation is recommended, particularly when comparing to results calculated using previous equations. The CKD-EPI equation is less accurate in patients with extremes of muscle mass, extra-renal metabolism of creatine, excessive creatine ingestion, or following therapy that affects renal tubular secretion. Performed By: #### B MP #### [facility] [address] [place], [place] [id number] Ventilating Expert: Oscar Watkins MD Glucose [Mass/Vol] 106 mg/dL High 70-99 [facility] Comment on above: Performed By: #### B MP #### [address] [place], [place] [id number] Ventilating Expert: Oscar Watkins MD Potassium [Moles/Vol] 3.6 mmol/L Low 3.7-5.3 [facility] Comment on above: Performed By: #### B MP #### [facility] [address] [place] [address] [place] [place], [place] [id number] Ventilating Expert: Oscar Watkins MD Sodium [Moles/Vol] 149 mmol/L High 135-144 [facility] Comment on above: Performed By: #### B MP #### [facility] [address] [place] [address] Ventilating Expert: Oscar Watkins MD Urea nitrogen [Mass/Vol] 35 mg/dL High 8-23 [facility] Comment on above: Performed By: #### B MP #### [facility] [address] [place] [address] Ventilating Expert: Oscar Watkins MD CBC AUTO DIFFon 10-21-2022 BASO # 0.1 103/ul Normal 0.0-0.1 [facility] Comment on above: Performed By: #### C BC #### [facility] [address] [address] [address] Brittanie Burns Basophils/100 WBC (Bld) 0.6 % Normal 0.2-2.0 [facility] Comment on above: Performed By: #### C BC #### [facility] [address] [place] [address] Dr. Brittanie Burns EO # 0.4 103/ul Normal 0.0-0.7 [facility] Comment on above: Performed By: #### C BC #### [facility] [address] [place] [address] Dr. Brittanie Burns Eosinophils/100 WBC (Bld) 3.9 % Normal 0.9-7.0 [facility] Comment on above: Performed By: #### C BC #### [facility] [address] [place] [address] Dr. Brittanie Burns Erythrocyte distribution wid th (RBC) [Ratio] 13.5 % Normal 11.0-15.0 [facility] Comment on above: Performed By: #### C BC #### [facility] [address] [place] [address] Dr. Brittanie Burns Hematocrit (Bld) [Volume fraction] 38.1 % Critically low 42.0-54.0 [facility] Comment on above: Performed By: #### C BC #### [facility] [address] [place] [address] Dr. Brittanie Burns Hemoglobin (Bld) [Mass/Vol] 13.2 g/dL Critically low 14.0 -18.0 [facility] Comment on above: Performed By: #### C BC #### [facility] [address] [place] [address] Dr. Brittanie Burns IG # 0.02 10e3/ul Normal 0.00-0.03 [facility] Comment on above: Performed By: #### C BC #### [facility] [address] [place] [address] Dr. Brittanie Burns IG % 0.2 % Normal 0.0-0.5 [facility] Comment on above: Performed By: #### C BC #### [facility] [address] [address] [address] Brittanie Burns LYMPH # 2.2 103/ul Normal 1.2-3.8 [facility] Comment on above: Performed By: #### C BC #### [facility] [address] [address] [address] Brittanie Burns Lymphocytes/100 WBC (Bld) 23.4 % Normal 20.5-60.0 [facility] Comment on above: Performed By: #### C BC #### [facility] [address] [place] [address] Dr. Brittanie Burns MANUAL DIFF REQ NO Normal [facility] Comment on above: Performed By: #### C BC #### [facility] [address] [place] [address] Dr. Brittanie Burns MCH (RBC) [Entitic mass] 30.6 pg Normal 25.9-34.0 [facility] Comment on above: Performed By: #### C BC #### [facility] [address] [place] [address] Dr. Brittanie Burns MCHC (RBC) [Mass/Vol] 34.6 g/dL Normal 29.9-35.2 [facility] Comment on above: Performed By: #### C BC #### [facility] [address] [place] [address] Dr. Brittanie Burns MCV (RBC) [Entitic vol] 88.2 fL Normal 80.0-94.0 [facility] Comment on above: Performed By: #### C BC #### [facility] [address] [place] [address] Dr. Brittanie Burns MONO # 1.3 103/ul Critically high 0.3-0.8 [facility] Comment on above: Performed By: #### C BC #### [facility] [address] [place] [address] Dr. Brittanie Burns Monocytes/100 WBC (Bld) 13.5 % Critically high 1.7-12. 0 [facility] Comment on above: Performed By: #### C BC #### [facility] [id number] Brittanie Burns NEUT # 5.6 103/ul Normal 1.4-6.5 [facility] Comment on above: Performed By: #### C BC #### [facility] [id number] Brittanie Burns Neutrophils/100 WBC (Bld) 58.4 % Normal 43.0-75.0 [facility] Comment on above: Performed By: #### C BC #### [facility] [address] [address] [address] Brittanie Burns Platelet mean volume (Bld) [Entitic vol] 9.3 fL Critically low 9.5-13.5 [facility] Comment on above: Performed By: #### C BC #### [facility] [address] [place], [place] [id number] Dr. Brittanie Burns PLT 297 103/ul Normal 150-450 [facility] Comment on above: Performed By: #### C BC #### [facility] [address] [place], [place] [id number] Dr. Brittanie Burns RBC 4.32 106/ul Critically low 4.70-6.10 [facility] Comment on above: Performed By: #### C BC #### [facility] [id number] Brittanie Burns WBC 9.6 103/ul Normal 4.0-11.0 [facility] Comment on above: Performed By: #### C BC #### [facility] [address] [place] [address] Dr. Brittanie Burns CULTURE BLOODon 10-21-2022 Microscopic examination of blood, culture Culture Observations: Positive blood culture. Anaerobic bottle. BCID=Staphylococcus sp. Culture Observations: NO GROWTH IN AEROBIC BOTTLE AT 5 DAYS. Isolate 1 Staphylococcus hominis Growth of ORGANISM 1 Staphylococcus hominis ANTIBIOTIC M.I.C RX STATUS Beta-Lactamase Neg NEG F Cefoxitin Screen Pos POS F Benzylpenicillin >=0.5 R F Oxacillin <=0.25 R F Gentamicin <=0.5 S F Ciprofloxacin <=0.5 S F Levofloxacin <=0.12 S F Inducible Clindamycin Resistance Neg NEG F Erythromycin >=8 R F Clindamycin <=0.25 S F Quinupristin/Dalfopristin <=0.25 S F Linezolid 2 S F Vancomycin <=0.5 S F Tetracycline <=1 S F Rifampicin <=0.5 S F Trimethoprim/Sulfamethoxazole 40 S F Normal [facility] Comment on above: Performed By: #### B LDCX2 #### [facility] [address] [place] [address] Dr. Brittanie Burns PROF 14(COMP METB)on 023 Albumin [Mass/Vol] 3.1 g/dL Critically low 3.4-5.0 [facility] Comment on above: Performed By: #### D RUGRPD #### [facility] [address] [place] [address] Dr. Brittanie Burns Albumin/Globulin [Mass ratio] 0.8 {ratio} Normal [facility] Comment on above: Performed By: #### D RUGRPD #### [facility] [address] [place] [address] Dr. Brittanie Burns ALP [Catalytic activity/Vol] 76 U/L Normal 46-116 [facility] Comment on above: Performed By: #### D RUGRPD #### [facility] [address] [place] [address] Dr. Brittanie Burns ALT [Catalytic activity/Vol] 16 U/L Normal 16-63 [facility] Comment on above: Performed By: #### D RUGRPD #### [facility] [address] [place] [address] Dr. Brittanie Burns Anion gap [Moles/Vol] 13.5 mmol/L Normal Th [facility] Comment on above: Performed By: #### D RUGRPD #### [facility] [address] [place] [address] Dr. Brittanie Burns AST [Catalytic activity/Vol] 14 U/L Critically low 15- 37 [facility] Comment on above: Performed By: #### D RUGRPD #### [facility] [address] [address] [address] Brittanie Burns Bilirubin [Mass/Vol] 0.6 mg/dL Normal 0.2-1.0 [facility] Comment on above: Performed By: #### D RUGRPD #### [facility] [address] [place] [address] Dr. Brittanie Burns Calcium [Mass/Vol] 8.9 mg/dL Normal 8.5-10.1 [facility] Comment on above: Performed By: #### D RUGRPD #### [facility] [address] [address] [address] Brittanie Burns Chloride [Moles/Vol] 107 mmol/L Normal 98-107 [facility] Comment on above: Performed By: #### D RUGRPD #### [facility] [address] [place] [address] Dr. Brittanie Burns CO2 [Moles/Vol] 26.9 mmol/L Normal 21.0-32.0 [facility] Comment on above: Performed By: #### D RUGRPD #### [facility] [address] [place] [address] Dr. Brittanie Burns Creatinine [Mass/Vol] 2.02 mg/dL Critically high 0.70-1.30 [facility] Comment on above: Performed By: #### D RUGRPD #### [facility] [address] [place] [address] Dr. Brittanie Burns EGFR-AF SLOVAK 40 mL/min/1.73m2 Critically low >=60 [facility] Comment on above: Performed By: #### D RUGRPD #### [facility] [address] [place] [address] Dr. Brittanie Burns EGFR-NON AF SLOVAK 33 mL/min/1.73m2 Critically low >=60 [facility] Comment on above: Performed By: #### D RUGRPD #### [facility] [address] [place] [address] Dr. Brittanie Burns Globulin (S) [Mass/Vol] 3.7 g/dL Normal T [facility] Comment on above: Performed By: #### D RUGRPD #### [facility] [address] [address] [address] Brittanie Burns Glucose [Mass/Vol] 95 mg/dL Normal 74-106 [facility] Comment on above: Performed By: #### D RUGRPD #### [facility] [address] [address] [address] Brittanie Burns Potassium [Moles/Vol] 3.4 mmol/L Critically low 3.5-5.1 [facility] Comment on above: Performed By: #### D RUGRPD #### [facility] [address] [address] [address] Brittanie Burns Protein [Mass/Vol] 6.8 g/dL Normal 6.4-8.2 [facility] Comment on above: Performed By: #### D RUGRPD #### [facility] [address] [place] [address] Dr. Brittanie Burns Sodium [Moles/Vol] 144 mmol/L Normal 136-145 [facility] Comment on above: Performed By: #### D RUGRPD #### [facility] [address] [address] [address] Brittanie Burns Urea nitrogen [Mass/Vol] 25.0 mg/dL Critically high 7.0-18 .0 [facility] Comment on above: Performed By: #### D RUGRPD #### [facility] [address] [place] [address] Dr. Brittanie Burns Urea nitrogen/Creatinine [Mass ratio] 12.4 mg/mg Normal [facility] Comment on above: Performed By: #### D RUGRPD #### [facility] [address] [address] [address] Brittanie Burns CBC AUTO DIFFon 10-20-2022 BASO # 0.1 103/ul Normal 0.0-0.1 [facility] Comment on above: Performed By: #### D RUGRPD #### [facility] [address] [address] [address] Brittanie Burns Basophils/100 WBC (Bld) 0.7 % Normal 0.2-2.0 [facility] Comment on above: Performed By: #### D RUGRPD #### [facility] [address] [place] [address] Dr. Brittanie Burns EO # 0.3 103/ul Normal 0.0-0.7 [facility] Comment on above: Performed By: #### D RUGRPD #### [facility] [address] [place] [address] Dr. Brittanie Burns Eosinophils/100 WBC (Bld) 2.7 % Normal 0.9-7.0 [facility] Comment on above: Performed By: #### D RUGRPD #### [facility] [address] [place] [address] Dr. Brittanie Burns Erythrocyte distribution wid th (RBC) [Ratio] 13.4 % Normal 11.0-15.0 [facility] Comment on above: Performed By: #### D RUGRPD #### [facility] [address] [place] [address] Dr. Brittanie Burns Hematocrit (Bld) [Volume fraction] 39.2 % Critically low 42.0-54.0 [facility] Comment on above: Performed By: #### D RUGRPD #### [facility] [address] [place] [address] Dr. Brittanie Burns Hemoglobin (Bld) [Mass/Vol] 13.7 g/dL Critically low 14.0 -18.0 [facility] Comment on above: Performed By: #### D RUGRPD #### [facility] [address] [place] [address] Dr. Brittanie Burns IG # 0.04 10e3/ul Critically high 0.00-0.03 [facility] Comment on above: Performed By: #### D RUGRPD #### [facility] [address] [place] [address] Dr. Brittanie Burns IG % 0.4 % Normal 0.0-0.5 [facility] Comment on above: Performed By: #### D RUGRPD #### [facility] [address] [place], [place] [id number] Dr. Brittanie Burns LYMPH # 2.0 103/ul Normal 1.2-3.8 [facility] Comment on above: Performed By: #### D RUGRPD #### [facility] [address] [place] [address] Dr. Brittanie Burns Lymphocytes/100 WBC (Bld) 19.9 % Critically low 20.5-6 0.0 [facility] Comment on above: Performed By: #### D RUGRPD #### [facility] [address] [place] [address] Dr. Brittanie Burns MANUAL DIFF REQ NO Normal [facility] Comment on above: Performed By: #### D RUGRPD #### [facility] [address] [place] [address] Dr. Brittanie Burns MCH (RBC) [Entitic mass] 30.7 pg Normal 25.9-34.0 [facility] Comment on above: Performed By: #### D RUGRPD #### [facility] [address] [place] [address] Dr. Brittanie Burns MCHC (RBC) [Mass/Vol] 34.9 g/dL Normal 29.9-35.2 [facility] Comment on above: Performed By: #### D RUGRPD #### [facility] [address] [place] [address] Dr. Brittanie Burns MCV (RBC) [Entitic vol] 87.9 fL Normal 80.0-94.0 [facility] Comment on above: Performed By: #### D RUGRPD #### [facility] [address] [place] [address] Dr. Brittanie Burns MONO # 1.5 103/ul Critically high 0.3-0.8 [facility] Comment on above: Performed By: #### D RUGRPD #### [facility] [address] [place] [address] Dr. Brittanie Burns Monocytes/100 WBC (Bld) 14.4 % Critically high 1.7-12. 0 [facility] Comment on above: Performed By: #### D RUGRPD #### [facility] [address] [address] [address] Brittanie Burns NEUT # 6.3 103/ul Normal 1.4-6.5 [facility] Comment on above: Performed By: #### D RUGRPD #### [facility] [address] [address] [address] Brittanie Burns Neutrophils/100 WBC (Bld) 61.9 % Normal 43.0-75.0 [facility] Comment on above: Performed By: #### D RUGRPD #### [facility] [address] [address] [address] Brittanie Burns Platelet mean volume (Bld) [ Entitic vol] 10.0 fL Normal 9.5-13.5 [facility] Comment on above: Performed By: #### D RUGRPD #### [facility] [address] [place] [address] Dr. Brittanie Burns PLT 305 103/ul Normal 150-450 [facility] Comment on above: Performed By: #### D RUGRPD #### [facility] [address] [place] [address] Dr. Brittanie Burns RBC 4.46 106/ul Critically low 4.70-6.10 [facility] Comment on above: Performed By: #### D RUGRPD #### [facility] [address] [place] [address] Dr. Brittanie Burns WBC 10.2 103/ul Normal 4.0-11.0 [facility] [facility] Comment on above: Performed By: #### D RUGRPD #### [facility] [address] [place] [address] Dr. Brittanie Burns PROF 14(COMP METB)on 023 Albumin [Mass/Vol] 3.4 g/dL Normal 3.4-5.0 [facility] Comment on above: Performed By: #### L YMA #### [facility] [address] [place] [address] Dr. Brittanie Burns Albumin/Globulin [Mass ratio] 0.8 {ratio} Normal [facility] Comment on above: Performed By: #### L YMA #### [facility] [address] [address] [address] Brittanie Burns ALP [Catalytic activity/Vol] 83 U/L Normal 46-116 [facility] Comment on above: Performed By: #### L YMA #### [facility] [address] [address] [address] Brittanie Burns ALT [Catalytic activity/Vol] 14 U/L Critically low 16- 63 [facility] Comment on above: Performed By: #### L YMA #### [facility] [address] [address] [address] Brittanie Burns Anion gap [Moles/Vol] 16.0 mmol/L Normal Th e [facility] Comment on above: Performed By: #### L YMA #### [facility] [address] [address] [address] Brittanie Burns AST [Catalytic activity/Vol] 14 U/L Critically low 15- 37 [facility] Comment on above: Performed By: #### L YMA #### [facility] [address] [address] [address] Brittanie Burns Bilirubin [Mass/Vol] 0.5 mg/dL Normal 0.2-1.0 [facility] Comment on above: Performed By: #### L YMA #### [facility] [address] [address] [address] Brittanie Burns Calcium [Mass/Vol] 9.0 mg/dL Normal 8.5-10.1 [facility] Comment on above: Performed By: #### L YMA #### [facility] [address] [address] [address] Brittanie Burns Chloride [Moles/Vol] 103 mmol/L Normal 98-107 [facility] Comment on above: Performed By: #### L YMA #### [facility] [address] [address] [address] Brittanie Burns CO2 [Moles/Vol] 24.5 mmol/L Normal 21.0-32.0 [facility] Comment on above: Performed By: #### L YMA #### [facility] [address] [address] [address] Brittanie Burns Creatinine [Mass/Vol] 2.67 mg/dL Critically high 0.70-1.30 [facility] Comment on above: Performed By: #### L YMA #### [facility] [address] [address] [address] Brittanie Burns EGFR-AF SLOVAK 29 mL/min/1.73m2 Critically low >=60 [facility] Comment on above: Performed By: #### L YMA #### [facility] [address] [address] [address] Brittanie Burns EGFR-NON AF [place] 24 mL/min/1.73m2 Critically low >=60 [facility] Comment on above: Performed By: #### L YMA #### [facility] [address] [address] [address] Brittanie Burns Globulin (S) [Mass/Vol] 4.2 g/dL Normal [facility] Comment on above: Performed By: #### L YMA #### [facility] [address] [address] [address] Brittanie Burns Glucose [Mass/Vol] 131 mg/dL Critically high 74-106 [facility] Comment on above: Performed By: #### L YMA #### [facility] [address] [address] [address] Brittanie Burns Potassium [Moles/Vol] 3.5 mmol/L Normal 3.5-5.1 [facility] Comment on above: Performed By: #### L YMA #### [facility] [address] [address] [address] Brittanie Burns Protein [Mass/Vol] 7.6 g/dL Normal 6.4-8.2 [facility] Comment on above: Performed By: #### L YMA #### [facility] [address] [address] [address] Brittanie Burns Sodium [Moles/Vol] 140 mmol/L Normal 136-145 [facility] Comment on above: Performed By: #### L YMA #### [facility] [address] [place] [address] Dr. Brittanie Burns Urea nitrogen [Mass/Vol] 33.0 mg/dL Critically high 7.0-18 .0 [facility] Comment on above: Performed By: #### L YMA #### [facility] [address] [place] [address] Dr. Brittanie Burns Urea nitrogen/Creatinine [Mass ratio] 12.4 mg/mg Normal [facility] Comment on above: Performed By: #### L YMA #### [facility] [address] [place] [address] Dr. Brittanie Burns VITAMIN B1 (THIAMINE)on 09-23 Vit. B1, Whole Blood 133.7 nmol/L Normal 66.5-200.0 e [facility] Comment on above: Performed By: #### V [id number] #### [facility] [address] [place] [address] Dr. Brittanie Burns CBC W MANUAL DIFFon 10-20-19 23 ATYPICAL LYMPH # Normal [facility] Comment on above: Performed By: #### C BC #### [facility] [address] [place] [address] Dr. Brittanie Burns ATYPICAL LYMPH % Normal [facility] Comment on above: Performed By: #### C BC #### [facility] [address] [place] [address] Dr. Brittanie Burns BAND # Normal 0.0-0.3 [facility] Comment on above: Performed By: #### C BC #### [facility] [address] [place] [address] Dr. Brittanie uBrns BAND % Normal 0-5 [facility] Comment on above: Performed By: #### C BC #### [facility] [address] [place] [address] Dr. Brittanie Burns BASOM # 0.34 103/ul Critically high 0.00-0.10 [facility] Comment on above: Performed By: #### C BC #### [facility] [address] [address] [address] Brittanie Burns BASOM % 3.0 % Critically high 0.2-2.0 [facility] Comment on above: Performed By: #### C BC #### [facility] [address] [place] [address] Dr. Brittanie Burns BLAST # Normal [facility] Comment on above: Performed By: #### C BC #### [facility] [address] [place] [address] Dr. Brittanie Burns BLAST % Normal [facility] Comment on above: Performed By: #### C BC #### [facility] [address] [place] [address] Dr. Brittanie Burns CORRECTED WBC Normal 4.0-11.0 [facility] Comment on above: Performed By: #### C BC #### [facility] [address] [place] [address] Dr. Brittanie Burns EOS # 0.22 103/ul Normal 0.00-0.70 [facility] Comment on above: Performed By: #### C BC #### [facility] [address] [place] [address] Dr. Brittanie Burns EOS% 2.0 % Normal 0.9-7.0 [facility] Comment on above: Performed By: #### C BC #### [facility] [address] [place] [address] Dr. Brittanie Burns HCT 35.2 % Critically low 42.0-54.0 [facility] Comment on above: Performed By: #### C BC #### [facility] [address] [place] [address] Dr. Brittanie Burns HGB 12.2 g/dl Critically low 14.0-18.0 [facility] Comment on above: Performed By: #### C BC #### [facility] [address] [place] [address] Dr. Brittanie Burns LYMPHM # 1.90 103/ul Normal 1.20-3.80 [facility] Comment on above: Performed By: #### C BC #### [facility] [address] [place] [address] Dr. Brittanie Burns LYMPHM% 17.0 % Critically low 20.5-60.0 [facility] Comment on above: Performed By: #### C BC #### [facility] [address] [place] [address] Dr. Brittanie Burns MCH 30.7 pg Normal 25.9-34.0 [facility] Comment on above: Performed By: #### C BC #### [facility] [address] [place] [address] Dr. Brittanie Burns MCHC 34.7 g/dl Normal 29.9-35.2 [facility] Comment on above: Performed By: #### C BC #### [facility] [address] [place] [address] Dr. Brittanie Burns MCV 88.4 fL Normal 80.0-94.0 [facility] Comment on above: Performed By: #### C BC #### [facility] [address] [place] [address] Dr. Brittanie Burns METAMYELOCYTE # Normal [facility] Comment on above: Performed By: #### C BC #### [facility] [address] [place] [address] Dr. Brittanie Burns METAMYELOCYTE % Normal [facility] Comment on above: Performed By: #### C BC #### [facility] [address] [place] [address] Dr. Brittanie Burns MONOM# 0.67 103/ul Normal 0.30-0.80 [facility] Comment on above: Performed By: #### C BC #### [facility] [address] [place] [address] Dr. Brittanie Burns MONOM% 6.0 % Normal 1.7-12.0 [facility] Comment on above: Performed By: #### C BC #### [facility] [address] [place] [address] Dr. Brittanie Burns MPV 9.9 fL Normal 9.5-13.5 [facility] Comment on above: Performed By: #### C BC #### [facility] [address] [place] [address] Dr. Brittanie Burns MYELOCYTE # Normal [facility] Comment on above: Performed By: #### C BC #### [facility] [address] [place] [address] Dr. Brittanie Burns MYELOCYTE % Normal [facility] Comment on above: Performed By: #### C BC #### [facility] [address] [place] [address] Dr. Brittanie Burns NRBC Normal [facility] Comment on above: Performed By: #### C BC #### [facility] [address] [place] [address] Dr. Brittanie Burns PLT 267 103/ul Normal 150-450 [facility] Comment on above: Performed By: #### C BC #### [facility] [address] [place] [address] Dr. Brittanie Burns RBC 3.98 106/ul Critically low 4.70-6.10 [facility] Comment on above: Performed By: #### C BC #### [facility] [address] [place] [address] Dr. Brittanie Burns RDW 13.4 % Normal 11.0-15.0 [facility] Comment on above: Performed By: #### C BC #### [facility] [address] [place] [address] Dr. Brittanie Burns SEG # 8.06 103/ul Critically high 1.40-6.50 [facility] Comment on above: Performed By: #### C BC #### [facility] [address] [place] [address] Dr. Brittanie Burns SEG % 72.0 % Normal 43.0-75.0 [facility] Comment on above: Performed By: #### C BC #### [facility] [address] [place] [address] Dr. Brittanie Burns WBC 11.2 103/ul Critically high 4.0-11.0 [facility] Comment on above: Performed By: #### C BC #### [facility] [address] [place], [place] [address] Dr. Brittanie Burns CULTURE BLOODon 10-19-2022 Microscopic examination of blood, culture Culture Observations: NO GROWTH AT 5 DAYS. Normal [facility] Comment on above: Performed By: #### B [id number] #### [facility] [address] [place], [place] [address] Dr. Brittanie Burns ECHOCARDIO M/2D COMPLETEon 0 10-19-2022 ECHOCARDIO M/2D COMPLETE Patient: SHELBY VALERIO Exam Date: 10/19/2022 : 1950 Gender:M Ordering : SHAIKH Manav SALINAS . Admission #: [id number] Family : Order #: [id number] CLICK HERE TO VIEW EXAM ECHOCARDIOGRAM REPORT PROCEDURE: CARDIO PULMONARY ECHOCARDIO M/2D COMP INDICATIONS: R/O Endocarditis, COPD, hypertension COMPARISON: None. DESCRIPTION: COMPLETE ECHOCARDIOGRAM Real-time transthoracic echocardiography with 2D, M-mode, spectral and color flow Doppler performed. QUALITY: Technical quality was good. LEFT VENTRICLE: Normal chamber size. Thickened septal wall. Normal systolic function. LV EF: Normal left ventricular ejection fraction, (>55%). DIASTOLIC: Normal diastolic function. ATRIAL SEPTUM: LEFT ATRIUM: Normal chamber size. RIGHT ATRIUM: Normal chamber size. RIGHT VENTRICLE: Normal chamber size. Normal right ventricular systolic function. TRICUSPID VALVE: Normal mobility and thickness. No stenosis with no regurgitation. MITRAL VALVE: Normal mobility and thickness. No evidence of mitral valve stenosis. Mild mitral annular calcification. No mitral regurgitation. AORTIC VALVE: Normal trileaflet appearance. Mildly calcified aortic valve. Mildly diminished mobility. No evidence of aortic valve stenosis. No aortic regurgitation. AORTIC ROOT: Normal diameter and appearance. PULMONIC VALVE: Normal thickness and mobility. No stenosis. PERICARDIUM: No evidence of pericardial effusion. IVC: Within normal limits. PLEURA: CONCLUSION: 1. Normal ventricular function. LVEF is 60%. 2. No significant valvular dysfunction. 3. No pericardial effusion. Adult Echocardiography Procedure Report Left Ventricle LVEDD (3.7 - 5.6 cm): 3.11 cm LVESD (2.2 - 4.0 cm): 2.03 cm LVIVS thickness (0.6 - 1.2 cm): 1.18 cm LVPW thickness (0.5 - 1.0 cm): 9.80 mm LVOT Max Gradient: 6 mm[Hg] Peak Velocity (LVOT): 122.00 cm/s LVOT Diameter 2.10 cm Left Ventricular Ejection Fraction: 60 % Left Atrium LA Volume Index (2D A2C): 61781 mm3 Left Atrium Systolic Dimension: 2.20 cm Mitral Valve MV E to A Ratio: 0.90 Mitral Valve A-Wave Peak Velocity: 85.40 cm/s Mitral Valve E-Wave Peak Velocity: 79.50 cm/s Right Ventricle Aorta AO Root Diam: 3.40 cm Aortic Valve AoV Area (Peak Beck): 2.78 cm2 Peak Velocity(Antegrade Flow): 152.00 cm/s Peak Gradient(Antegrade Flow): 9 mm[Hg] Tricuspid Valve Peak Velocity: 54.30 cm/s Pulmonic Valve Peak Velocity: 119.00 cm/s, 114.00 cm/s Peak Gradient: 5 mm[Hg] Right Atrium Dictated by: Dario Pedroza M.D. on 10/19/2022 at 14:29 Approved by: Dario Pedroza M.D. on 10/19/2022 at 14:32 Normal [facility] PROF 14(COMP METB)on 023 Albumin [Mass/Vol] 2.8 g/dL Critically low 3.4-5.0 Th e [facility] Comment on above: Performed By: #### L YMA #### [facility] [address] [place] [address] Dr. Brittanie Burns Albumin/Globulin [Mass ratio] 0.8 {ratio} Normal [facility] Comment on above: Performed By: #### L YMA #### [facility] [address] [address] [address] Brittanie Burns ALP [Catalytic activity/Vol] 72 U/L Normal 46-116 [facility] Comment on above: Performed By: #### L YMA #### [facility] [address] [address] [address] Brittanie Burns ALT [Catalytic activity/Vol] 12 U/L Critically low 16- 63 [facility] Comment on above: Performed By: #### L YMA #### [facility] [address] [address] [address] Brittanie Burns Anion gap [Moles/Vol] 15.7 mmol/L Normal Th [facility] Comment on above: Performed By: #### L YMA #### [facility] [address] [address] [address] Brittanie Burns AST [Catalytic activity/Vol] 12 U/L Critically low 15- 37 [facility] Comment on above: Performed By: #### L YMA #### [facility] [address] [address] [address] Brittanie Burns Bilirubin [Mass/Vol] 0.5 mg/dL Normal 0.2-1.0 [facility] Comment on above: Performed By: #### L YMA #### [facility] [address] [place] [address] Dr. Brittanie Burns Calcium [Mass/Vol] 8.7 mg/dL Normal 8.5-10.1 [facility] Comment on above: Performed By: #### L YMA #### [facility] [address] [address] [address] Brittanie Burns Chloride [Moles/Vol] 107 mmol/L Normal 98-107 [facility] Comment on above: Performed By: #### L YMA #### [facility] [address] [address] [address] Brittanie Burns CO2 [Moles/Vol] 23.0 mmol/L Normal 21.0-32.0 [facility] Comment on above: Performed By: #### L YMA #### [facility] [address] [address] [address] Brittanie Burns Creatinine [Mass/Vol] 3.79 mg/dL Critically high 0.70-1.30 [facility] Comment on above: Performed By: #### L YMA #### [facility] [address] [address] [address] Brittanie Burns EGFR-AF SLOVAK 19 mL/min/1.73m2 Critically low >=60 [facility] Comment on above: Performed By: #### L YMA #### [facility] [address] [address] [address] Brittanie Burns EGFR-NON AF [place] 16 mL/min/1.73m2 Critically low >=60 [facility] Comment on above: Performed By: #### L YMA #### [facility] [address] [address] [address] Brittanie Burns Globulin (S) [Mass/Vol] 3.5 g/dL Normal T [facility] Comment on above: Performed By: #### L YMA #### [facility] [address] [address] [address] Brittanie Burns Glucose [Mass/Vol] 75 mg/dL Normal 74-106 [facility] Comment on above: Performed By: #### L YMA #### [facility] [address] [address] [address] Brittanie Burns Potassium [Moles/Vol] 3.7 mmol/L Normal 3.5-5.1 [facility] Comment on above: Performed By: #### L YMA #### [facility] [address] [address] [address] Brittanie Burns Protein [Mass/Vol] 6.3 g/dL Critically low 6.4-8.2 Th [facility] Comment on above: Performed By: #### L YMA #### [facility] [address] [address] [address] Brittanie Burns Sodium [Moles/Vol] 142 mmol/L Normal 136-145 [facility] Comment on above: Performed By: #### L YMA #### [facility] [address] [address] [address] Brittanie Burns Urea nitrogen [Mass/Vol] 40.0 mg/dL Critically high 7.0-18 .0 [facility] Comment on above: Performed By: #### L YMA #### [facility] [address] [address] [address] Brittanie Burns Urea nitrogen/Creatinine [Mass ratio] 10.6 mg/mg Normal [facility] Comment on above: Performed By: #### L YMA #### [facility] [address] [place] [address] Dr. Brittanie Burns VANCOMYCIN TROUGHon 10-20-19 VANCOMYCIN TROUGH 7.0 ug/ml Normal 5.0-20.0 [facility] Comment on above: Performed By: #### B [id number] #### [facility] [address] [place] [address] Dr. Brittanie Burns CBC AUTO DIFFon 10-18-2022 BASO # 0.1 103/ul Normal 0.0-0.1 [facility] Comment on above: Performed By: #### C BC #### [facility] [address] [place] [address] Dr. Brittanie Burns Basophils/100 WBC (Bld) 0.6 % Normal 0.2-2.0 [facility] Comment on above: Performed By: #### C BC #### [facility] [address] [place] [address] Dr. Brittanie Burns EO # 0.1 103/ul Normal 0.0-0.7 [facility] Comment on above: Performed By: #### C BC #### [facility] [address] [place] [address] Dr. Brittanie Burns Eosinophils/100 WBC (Bld) 1.0 % Normal 0.9-7.0 [facility] Comment on above: Performed By: #### C BC #### [facility] [address] [place] [address] Dr. Brittanie Burns Erythrocyte distribution wid th (RBC) [Ratio] 13.7 % Normal 11.0-15.0 [facility] Comment on above: Performed By: #### C BC #### [facility] [address] [place] [address] Dr. Brittanie Burns Hematocrit (Bld) [Volume fraction] 33.5 % Critically low 42.0-54.0 [facility] Comment on above: Performed By: #### C BC #### [facility] [address] [place] [address] Dr. Brittanie Burns Hemoglobin (Bld) [Mass/Vol] 11.2 g/dL Critically low 14.0 -18.0 [facility] Comment on above: Performed By: #### C BC #### [facility] [address] [place] [address] Dr. Brittanie Burns IG # 0.04 10e3/ul Critically high 0.00-0.03 [facility] Comment on above: Performed By: #### C BC #### [facility] [address] [place] [address] Dr. Brittanie Burns IG % 0.3 % Normal 0.0-0.5 [facility] Comment on above: Performed By: #### C BC #### [facility] [address] [place] [address] Dr. Brittanie Burns LYMPH # 1.8 103/ul Normal 1.2-3.8 [facility] Comment on above: Performed By: #### C BC #### [facility] [address] [place] [address] Dr. Brittanie Burns Lymphocytes/100 WBC (Bld) 15.4 % Critically low 20.5-6 0.0 [facility] Comment on above: Performed By: #### C BC #### [facility] [address] [place] [address] Dr. Brittanie Burns MANUAL DIFF REQ NO Normal [facility] Comment on above: Performed By: #### C BC #### [facility] [address] [place] [address] Dr. Brittanie Burns MCH (RBC) [Entitic mass] 30.2 pg Normal 25.9-34.0 [facility] Comment on above: Performed By: #### C BC #### [facility] [address] [place] [address] Dr. Brittanie Burns MCHC (RBC) [Mass/Vol] 33.4 g/dL Normal 29.9-35.2 [facility] Comment on above: Performed By: #### C BC #### [facility] [address] [place] [address] Dr. Brittanie Burns MCV (RBC) [Entitic vol] 90.3 fL Normal 80.0-94.0 [facility] Comment on above: Performed By: #### C BC #### [facility] [address] [place] [address] Dr. Brittanie Burns MONO # 1.3 103/ul Critically high 0.3-0.8 [facility] Comment on above: Performed By: #### C BC #### [facility] [address] [place] [address] Dr. Brittanie Burns Monocytes/100 WBC (Bld) 10.7 % Normal 1.7-12.0 [facility] Comment on above: Performed By: #### C BC #### [facility] [address] [place] [address] Dr. Brittanie Burns NEUT # 8.5 103/ul Critically high 1.4-6.5 [facility] Comment on above: Performed By: #### C BC #### [facility] [address] [place] [address] Dr. Brittanie Burns Neutrophils/100 WBC (Bld) 72.0 % Normal 43.0-75.0 [facility] Comment on above: Performed By: #### C BC #### [facility] [address] [place] [address] Dr. Brittanie Burns Platelet mean volume (Bld) [Entitic vol] 9.4 fL Critically low 9.5-13.5 [facility] Comment on above: Performed By: #### C BC #### [facility] [address] [place] [address] Dr. Brittanie Burns PLT 241 103/ul Normal 150-450 [facility] Comment on above: Performed By: #### C BC #### [facility] [address] [place] [address] Dr. Brittanie Burns RBC 3.71 106/ul Critically low 4.70-6.10 [facility] Comment on above: Performed By: #### C BC #### [facility] [address] [place] [address] Dr. Brittanie Burns WBC 11.8 103/ul Critically high 4.0-11.0 [facility] Comment on above: Performed By: #### C BC #### [facility] [address] [place] [address] Dr. Brittanie Burns LYME DISEASE AB EIA W REFLEX on 10-18-2022 [place] Total Antibody,EIA Negative Normal Negative T [facility] Comment on above: Result Comment: Lyme antibodies not detected. Reflex testing is not indicated. No laboratory evidence of infection with B. burgdorferi (Lyme disease). Negative results may occur in patients recently infected (less than or equal to 14 days) with B. burgdorferi. If recent infection is suspected, repeat testing on a new sample collected in 7 to 14 days is recommended. Performed By: #### L YMA #### [facility] [address] [place] [address] Dr. Brittanie Burns PROF 14(COMP METB)on 023 Albumin [Mass/Vol] 3.1 g/dL Critically low 3.4-5.0 [facility] Comment on above: Performed By: #### L YMA #### [facility] [address] [place] [address] Dr. Brittanie Burns Albumin/Globulin [Mass ratio] 1.2 {ratio} Normal [facility] Comment on above: Performed By: #### L YMA #### [facility] [address] [place] [address] Dr. Brittanie Burns ALP [Catalytic activity/Vol] 74 U/L Normal 46-116 [facility] Comment on above: Performed By: #### L YMA #### [facility] [address] [place] [address] Dr. Brittanie Burns ALT [Catalytic activity/Vol] 13 U/L Critically low 16- 63 [facility] Comment on above: Performed By: #### L YMA #### [facility] [address] [place] [address] Dr. Brittanie Burns Anion gap [Moles/Vol] 17.6 mmol/L Normal [facility] Comment on above: Performed By: #### L YMA #### [facility] [address] [place] [address] Dr. Brittanie Burns AST [Catalytic activity/Vol] 15 U/L Normal 15-37 [facility] Comment on above: Performed By: #### L YMA #### [facility] [address] [address] [address] Brittanie Burns Bilirubin [Mass/Vol] 0.5 mg/dL Normal 0.2-1.0 [facility] Comment on above: Performed By: #### L YMA #### [facility] [address] [address] [address] Brittanie Burns Calcium [Mass/Vol] 8.6 mg/dL Normal 8.5-10.1 [facility] Comment on above: Performed By: #### L YMA #### [facility] [address] [place] [address] Dr. Brittanie Burns Chloride [Moles/Vol] 107 mmol/L Normal 98-107 [facility] Comment on above: Performed By: #### L YMA #### [facility] [address] [place] [address] Dr. Brittanie Burns CO2 [Moles/Vol] 21.1 mmol/L Normal 21.0-32.0 [facility] Comment on above: Performed By: #### L YMA #### [facility] [address] [place] [address] Dr. Brittanie Burns Creatinine [Mass/Vol] 5.64 mg/dL Critically high 0.70-1.30 [facility] Comment on above: Performed By: #### L YMA #### [facility] [address] [place] [address] Dr. Brittanie Burns EGFR-AF SLOVAK 12 mL/min/1.73m2 Critically low >=60 [facility] Comment on above: Performed By: #### L YMA #### [facility] [address] [place] [address] Dr. Brittanie Burns EGFR-NON AF SLOVAK 10 mL/min/1.73m2 Critically low >=60 [facility] Comment on above: Performed By: #### L YMA #### [facility] [address] [place] [address] Dr. Brittanie Burns Globulin (S) [Mass/Vol] 2.6 g/dL Normal T [facility] Comment on above: Performed By: #### L YMA #### [facility] [address] [address] [address] Brittanie Burns Glucose [Mass/Vol] 75 mg/dL Normal 74-106 [facility] Comment on above: Performed By: #### L YMA #### [facility] [address] [address] [address] Brittanie Burns Potassium [Moles/Vol] 4.7 mmol/L Normal 3.5-5.1 [facility] Comment on above: Performed By: #### L YMA #### [facility] [address] [address] [address] Brittanie Burns Protein [Mass/Vol] 5.7 g/dL Critically low 6.4-8.2 [facility] Comment on above: Performed By: #### L YMA #### [facility] [address] [address] [address] Brittanie Burns Sodium [Moles/Vol] 141 mmol/L Normal 136-145 [facility] Comment on above: Performed By: #### L YMA #### [facility] [address] [address] [address] Brittanie Burns Urea nitrogen [Mass/Vol] 44.0 mg/dL Critically high 7.0-18 .0 [facility] Comment on above: Performed By: #### L YMA #### [facility] [address] [address] [address] Brittanie Burns Urea nitrogen/Creatinine [Mass ratio] 7.8 mg/mg Normal [facility] Comment on above: Performed By: #### L YMA #### [facility] [address] [address] [address] Brittanie Burns RPR QUAL REFLEX TO QUANTon 0 10-18-2022 Rapid Plasma Reagin, Qual Non-Reactive Normal Non Reac tive [facility] Comment on above: Performed By: #### V ITB1T #### [facility] [address] [place] [address] Dr. Brittanie Burns CBC AUTO DIFFon 10-17-2022 BASO # 0.0 103/ul Normal 0.0-0.1 [facility] Comment on above: Performed By: #### C BC #### [facility] [address] [place] [address] Dr. Brittanie Burns Basophils/100 WBC (Bld) 0.3 % Normal 0.2-2.0 [facility] Comment on above: Performed By: #### C BC #### [facility] [address] [place] [address] Dr. Brittanie Burns EO # 0.0 103/ul Normal 0.0-0.7 [facility] Comment on above: Performed By: #### C BC #### [facility] [address] [place] [address] Dr. Brittanie Burns Eosinophils/100 WBC (Bld) 0.1 % Critically low 0.9-7. 0 [facility] Comment on above: Performed By: #### C BC #### [facility] [address] [place] [address] Dr. Brittanie Burns Erythrocyte distribution wid th (RBC) [Ratio] 13.7 % Normal 11.0-15.0 [facility] Comment on above: Performed By: #### C BC #### [facility] [address] [place] [address] Dr. Brittanie Burns Hematocrit (Bld) [Volume fraction] 34.2 % Critically low 42.0-54.0 [facility] Comment on above: Performed By: #### C BC #### [facility] [address] [place] [address] Dr. Brittanie Burns Hemoglobin (Bld) [Mass/Vol] 11.6 g/dL Critically low 14.0 -18.0 [facility] Comment on above: Performed By: #### C BC #### [facility] [address] [place] [address] Dr. Brittnaie Burns IG # 0.06 10e3/ul Critically high 0.00-0.03 [facility] Comment on above: Performed By: #### C BC #### [facility] [address] [place] [address] Dr. Brittanie Burns IG % 0.4 % Normal 0.0-0.5 [facility] Comment on above: Performed By: #### C BC #### [facility] [address] [address] [address] Brittanie Burns LYMPH # 1.4 103/ul Normal 1.2-3.8 [facility] Comment on above: Performed By: #### C BC #### [facility] [address] [place] [address] Dr. Brittanie Burns Lymphocytes/100 WBC (Bld) 10.4 % Critically low 20.5-6 0.0 [facility] Comment on above: Performed By: #### C BC #### [facility] [address] [place] [address] Dr. Brittanie Burns MANUAL DIFF REQ NO Normal [facility] Comment on above: Performed By: #### C BC #### [facility] [address] [place] [address] Dr. Brittanie Burns MCH (RBC) [Entitic mass] 30.9 pg Normal 25.9-34.0 [facility] Comment on above: Performed By: #### C BC #### [facility] [address] [place] [address] Dr. Brittanie Burns MCHC (RBC) [Mass/Vol] 33.9 g/dL Normal 29.9-35.2 [facility] Comment on above: Performed By: #### C BC #### [facility] [address] [place] [address] Dr. Brittanie Burns MCV (RBC) [Entitic vol] 91.0 fL Normal 80.0-94.0 [facility] Comment on above: Performed By: #### C BC #### [facility] [address] [place] [address] Dr. Brittanie Burns MONO # 1.4 103/ul Critically high 0.3-0.8 [facility] Comment on above: Performed By: #### C BC #### [facility] [address] [address] [address] Brittanie Burns Monocytes/100 WBC (Bld) 10.3 % Normal 1.7-12.0 [facility] Comment on above: Performed By: #### C BC #### [facility] [address] [address] [address] Brittanie Burns NEUT # 10.5 103/ul Critically high 1.4-6.5 [facility] Comment on above: Performed By: #### C BC #### [facility] [address] [address] [address] Brittanie Burns Neutrophils/100 WBC (Bld) 78.5 % Critically high 43.0- 75.0 [facility] Comment on above: Performed By: #### C BC #### [facility] [address] [address] [address] Brittanie Burns Platelet mean volume (Bld) [Entitic vol] 9.2 fL Critically low 9.5-13.5 [facility] Comment on above: Performed By: #### C BC #### [facility] [address] [address] [address] Brittanie Burns PLT 251 103/ul Normal 150-450 [facility] [place] [facility] Comment on above: Performed By: #### C BC #### [facility] [address] [address] [address] Brittanie Burns RBC 3.76 106/ul Critically low 4.70-6.10 [facility] Comment on above: Performed By: #### C BC #### [facility] [address] [id number] Brittanie Burns WBC 13.4 103/ul Critically high 4.0-11.0 [facility] Comment on above: Performed By: #### C BC #### [facility] [address] [address] [address] Brittanie Burns LIPID PROFILEon 10-17-2022 CHOL-HDL RATIO NORM SEE BELOW Normal [facility] Comment on above: Result Comment: 3.3 - 4.4 LOW RISK 4.4 - 7.1 AVERAGE RISK 7.1 - 11.0 MODERATE RISK >11.0 HIGH RISK Performed By: #### D RUGRPD #### [facility] [address] [address] [address] Brittanie Burns Cholesterol [Mass/Vol] 162 mg/dL Normal <=200 [facility] Comment on above: Performed By: #### D RUGRPD #### [facility] [address] [address] [address] Brittanie Burns Cholesterol in HDL [Mass/Vol] 32 mg/dL Critically low 40 -60 [facility] Comment on above: Performed By: #### D RUGRPD #### [facility] [address] [place] [address] Dr. Brittanie Burns Cholesterol in LDL [Mass/Vol] 98.6 mg/dL Normal [facility] Comment on above: Performed By: #### D RUGRPD #### [facility] [address] [address] [address] Brittanie Burns Cholesterol.total/Cholestero l in HDL [Mass ratio] 5.1 {ratio} Normal [facility] Comment on above: Performed By: #### D RUGRPD #### [facility] [address] [place] [address] Dr. Brittanie Burns HDL NORMAL > or = 60 mg/dl - LO W CARDIOVASCULAR RISK <40 mg/dl - HIGH CARDIOVASCULAR RISK Normal [facility] Comment on above: Performed By: #### D RUGRPD #### [facility] [address] [place] [address] Dr. Brittanie Burns LDL CALC NORMAL SEE BELOW Normal [facility] Comment on above: Result Comment: <100 mg/dl OPTIMAL 100 - 129 mg/dl NEAR OR ABOVE OPTIMAL 130 - 159 mg/dl BORDERLINE HIGH 160 - 189 mg/dl HIGH >190 mg/dl VERY HIGH Performed By: #### D RUGRPD #### [facility] [address] [place] [address] Dr. Brittanie Burns Triglyceride [Mass/Vol] 157 mg/dL Critically high <=150 [facility] Comment on above: Performed By: #### D RUGRPD #### [facility] [address] [place], [place] [address] Dr. Brittanie Burns VLDL CALC 31.4 mg/dL Normal [facility] Comment on above: Performed By: #### D RUGRPD #### [facility] [address] [place], [place] [address] Dr. Brittanie Burns MRI BRAIN WO CONon MRI BRAIN WO CON EXAMINATION: MRI BRA IN WO CON HISTORY: Acute confusion TECHNIQUE: Severely limited MRI of brain due to patient instability. COMPARISON: CT brain 10/16/2022. RESULT: Examination is severely limited by patient's inability to cooperate with the only sequences are available including DWI and sagittal T1 sequences. Within the limits of evaluation there is no evidence of an acute infarct as seen on the diffusion restricted images. The hypothalamic and pituitary regions are within normal limits. Craniocervical junction is unremarkable. IMPRESSION: Severely limited examination due to patient inability to cooperate. Within limits of evaluation, there is no evidence of an acute infarct. Examination may be repeated when patient is stable. Electronically authenticated by: DIONNE JEROME Date: 2022-10-17 21:49 Normal [facility] l PROF 14(COMP METB)on 023 Albumin [Mass/Vol] 3.1 g/dL Critically low 3.4-5.0 [facility] Comment on above: Performed By: #### B 12FOL #### [facility] [address] [id number] Brittanie Burns Albumin/Globulin [Mass ratio] 0.9 {ratio} Normal [facility] Comment on above: Performed By: #### B 12FOL #### [facility] [address] [place], [place] [address] Dr. Brittanie Burns ALP [Catalytic activity/Vol] 63 U/L Normal 46-116 [facility] Comment on above: Performed By: #### B 12FOL #### [facility] [address] [place], [place] [address] Dr. Brittanie Burns ALT [Catalytic activity/Vol] 15 U/L Critically low 16- 63 [facility] Comment on above: Performed By: #### B 12FOL #### [facility] [address] [address] [address] Brittanie Burns Anion gap [Moles/Vol] 17.5 mmol/L Normal [facility] Comment on above: Performed By: #### B 12FOL #### [facility] [address] [address] [address] Brittanie Burns AST [Catalytic activity/Vol] 15 U/L Normal 15-37 [facility] Comment on above: Performed By: #### B 12FOL #### [facility] [address] [address] [address] Brittanie Burns Bilirubin [Mass/Vol] 0.4 mg/dL Normal 0.2-1.0 [facility] Comment on above: Performed By: #### B 12FOL #### [facility] [address] [address] [address] Brittanie Burns Calcium [Mass/Vol] 9.0 mg/dL Normal 8.5-10.1 [facility] Comment on above: Performed By: #### B 12FOL #### [facility] [address] [address] [address] Brittanie Burns Chloride [Moles/Vol] 114 mmol/L Critically high 98-107 [facility] Comment on above: Performed By: #### B 12FOL #### [facility] [address] [address] [address] Brittanie Burns CO2 [Moles/Vol] 22.8 mmol/L Normal 21.0-32.0 [facility] Comment on above: Performed By: #### B 12FOL #### [facility] [address] [address] [address] Brittanie Burns Creatinine [Mass/Vol] 6.98 mg/dL Critically high 0.70-1.30 [facility] Comment on above: Performed By: #### B 12FOL #### [facility] [address] [address] [address] Brittanie Burns EGFR-AF SLOVAK 9 mL/min/1.73m2 Critically low >=60 [facility] Comment on above: Performed By: #### B 12FOL #### [facility] [address] [address] [address] Brittanie Burns EGFR-NON AF SLOVAK 8 mL/min/1.73m2 Critically low >=60 [facility] Comment on above: Performed By: #### B 12FOL #### [facility] [address] [address] [address] Brittanie Burns Globulin (S) [Mass/Vol] 3.3 g/dL Normal [facility] Comment on above: Performed By: #### B 12FOL #### [facility] [address] [address] [address] Brittanie Burns Glucose [Mass/Vol] 104 mg/dL Normal 74-106 [facility] Comment on above: Performed By: #### B 12FOL #### [facility] [address] [place] [address] Dr. Brittanie Burns Potassium [Moles/Vol] 5.3 mmol/L Critically high 3.5-5.1 [facility] Comment on above: Performed By: #### B 12FOL #### [facility] [address] [place] [address] Dr. Brittanie Burns Protein [Mass/Vol] 6.4 g/dL Normal 6.4-8.2 [facility] Comment on above: Performed By: #### B 12FOL #### [facility] [address] [place] [address] Dr. Brittanie Burns Sodium [Moles/Vol] 149 mmol/L Critically high 136-145 [facility] Comment on above: Performed By: #### B 12FOL #### [facility] [address] [place] [address] Dr. Brittanie Burns Urea nitrogen [Mass/Vol] 45.0 mg/dL Critically high 7.0-18 .0 [facility] Comment on above: Performed By: #### B 12FOL #### [facility] [address] [place] [address] Dr. Brittanie Burns Urea nitrogen/Creatinine [Mass ratio] 6.4 mg/mg Normal [facility] Comment on above: Performed By: #### B 12FOL #### [facility] [address] [place] [address] Dr. Brittanie Burns TSHon 10-17-2022 TSH 1.347 uIU/mL Normal 0.358-3.740 [facility] [place] [facility] Comment on above: Performed By: #### D RUGRPD #### [facility] [address] [place] [address] Dr. Brittanie Burns VIT B12 AND FOLATEon 023 Cobalamin (Vitamin B12) [Mass/Vol] 296.0 pg/mL Normal 193.0-986.0 [facility] Comment on above: Performed By: #### B 12FOL #### [facility] [address] [place] [address] Dr. Brittanie Burns FOLATE 12.20 ng/mL Normal 8.60-58.90 [facility] Comment on above: Performed By: #### B 12FOL #### [facility] [address] [place] [address] Dr. Brittanie Burns ACETAMINOPHENon 10-16-2022 Acetaminophen [Mass/Vol] ug/mL Critically low 10.0-30 .0 [facility] Comment on above: Performed By: #### L YMA #### [facility] [address] [place] [address] Dr. Brittanie Burns ACETONE SERUMon 10-16-2022 ACETONE Negative Normal NEGATIVE [facility] Comment on above: Performed By: #### D RUGRPD #### [facility] [address] [place] [address] Dr. Brittanie Burns AMMONIAon 10-16-2022 Ammonia (P) [Mass/Vol] ug/dL Critically low 11-32 [facility] Comment on above: Performed By: #### L YMA #### [facility] [address] [place] [address] Dr. Brittanie Burns BLOOD CULTURE ID PANELon A. baumannii Not detected Normal NOT DETECTED [facility] Comment on above: Performed By: #### L YMA #### [facility] [address] [address] [address] Brittanie Burns Bacteriodes fragilis Not detected Normal NOT DETECTED [facility] Comment on above: Performed By: #### L YMA #### [facility] [address] [address] [address] Brittanie BRANHAMD CONTROLS PASSED Normal [facility] [place] [facility] Comment on above: Performed By: #### L YMA #### [facility] [address] [place] [address] Dr. Brittanie BRANHAMDBTHD BLOOD CULTURE BOTTLE INFORMATION Normal [facility] Comment on above: Performed By: #### L YMA #### [facility] [address] [place] [address] Dr. Brittanie Burns BCIDHD1 ANTIMICROBIAL RESISTANCE GENES Normal [facility] Comment on above: Performed By: #### L YMA #### [facility] [address] [place] [address] Dr. Brittanie BRANHAMDHD2 SEE BELOW Normal [facility] Comment on above: Result Comment: Note : Antimicrobial resitance can occur via multiple mechanisms. A Not Detected result for the [employer] antomicrobial resistance gene assays does not indicate antimicrobial susceptibility. Subculturing is required for species identification and susceptibility testing of isolates. Performed By: #### L YMA #### [facility] [address] [place] [address] Dr. Brittanie BRANHAMDHD3 Positive Normal [facility] Comment on above: Performed By: #### L YMA #### [facility] [address] [place] [address] Dr. Brittanie BRANHAMDHD4 Negative Normal [facility] Comment on above: Performed By: #### L YMA #### [facility] [address] [place] [address] Dr. Brittanie BRANHAMDHD5 YEAST Normal [facility] Comment on above: Performed By: #### L YMA #### [facility] [address] [place] [address] Dr. Brittanie Burns Bottle Set: Set 2 Normal [facility] Comment on above: Performed By: #### L YMA #### [facility] [address] [place] [address] Dr. Brittanie Burns Bottle: Anaerobic Normal [facility] Comment on above: Performed By: #### L YMA #### [facility] [address] [place] [address] Dr. Brittanie Burns C. neoformans/gattii Not detected Normal NOT DETECTED [facility] Comment on above: Performed By: #### L YMA #### [facility] [address] [place] [address] Dr. Brittanie Burns Mari albicans Not detected Normal NOT DETECTED [facility] Comment on above: Performed By: #### L YMA #### [facility] [address] [place] [address] Dr. Brittanie Burns Mari auris Not detected Normal NOT DETECTED [facility] Comment on above: Performed By: #### L YMA #### [facility] [address] [place] [address] Dr. Brittanie Burns Mari glabrata Not detected Normal NOT DETECTED [facility] Comment on above: Performed By: #### L YMA #### [facility] [address] [place] [address] Dr. Brittanie Burns Mari Krusei Not detected Normal NOT DETECTED [facility] Comment on above: Performed By: #### L YMA #### [facility] [address] [place] [address] Dr. Brittanie Burns Mari Parapsilosis Not detected Normal NOT DETECTED [facility] Comment on above: Performed By: #### L YMA #### [facility] [address] [address] [address] Brittanie Burns Mari Tropicalis Not detected Normal NOT DETECTED [facility] Comment on above: Performed By: #### L YMA #### [facility] [address] [place] [address] Dr. Brittanie Burns CTX-M Resistant Gene Not Applicable Normal NOT DETECTE D [facility] Comment on above: Performed By: #### L YMA #### [facility] [address] [address] [address] Brittanie Burns E. Cloacae complex Not detected Normal NOT DETECTED [facility] Comment on above: Performed By: #### L YMA #### [facility] [address] [address] [address] Brittanie Burns E. faecalis Not detected Normal NOT DETECTED [facility] Comment on above: Performed By: #### L YMA #### [facility] [address] [place] [address] Dr. Brittanie Burns E. faecium Not detected Normal NOT DETECTED [facility] Comment on above: Performed By: #### L YMA #### [facility] [address] [place] [address] Dr. Brittanie Burns Enterobacteriaceae Not detected Normal NOT DETECTED [facility] Comment on above: Performed By: #### L YMA #### [facility] [address] [place] [address] Dr. Brittanie Burns Escherichia coli Not detected Normal NOT DETECTED [facility] Comment on above: Performed By: #### L YMA #### [facility] [address] [place] [address] Dr. Brittanie Burns H. influenzae Not detected Normal NOT DETECTED [facility] Comment on above: Performed By: #### L YMA #### [facility] [address] [place] [address] Dr. Brittanie Burns IMP Resistant Gene Not Applicable Normal NOT DETECTED [facility] Comment on above: Performed By: #### L YMA #### [facility] [address] [place] [address] Dr. Brittanie Burns K. oxytoca Not detected Normal NOT DETECTED [facility] Comment on above: Performed By: #### L YMA #### [facility] [address] [place] [address] Dr. Brittanie Burns K. pneumoniae Not detected Normal NOT DETECTED [facility] Comment on above: Performed By: #### L YMA #### [facility] [address] [place] [address] Dr. Brittanie Burns Klebsiella aerogenes Not detected Normal NOT DETECTED [facility] Comment on above: Performed By: #### L YMA #### [facility] [address] [place] [address] Dr. Brittanie Burns KPC Resistant Gene Not Applicable Normal NOT DETECTED [facility] Comment on above: Performed By: #### L YMA #### [facility] [address] [place] [address] Dr. Brittanie Burns List. monocytogenes Not detected Normal NOT DETECTED [facility] Comment on above: Performed By: #### L YMA #### [facility] [address] [place] [address] Dr. Brittanie Burns Mcr-1 Resistant Gene Not Applicable Normal NOT DETECTE D [facility] Comment on above: Performed By: #### L YMA #### [facility] [address] [place] [address] Dr. Brittanie Burns mecA/C Not Applicable Normal NOT DETECTED [facility] Comment on above: Performed By: #### L YMA #### [facility] [address] [place] [address] Dr. Brittanie Burns mecA/C MREJ Not Applicable Normal NOT DETECTED [facility] Comment on above: Performed By: #### L YMA #### [facility] [address] [place] [address] Dr. Brittanie Burns N. meningitidis Not detected Normal NOT DETECTED [facility] Comment on above: Performed By: #### L YMA #### [facility] [address] [place] [address] Dr. Brittanie Burns NDM Resistant Gene Not Applicable Normal NOT DETECTED [facility] Comment on above: Performed By: #### L YMA #### [facility] [address] [place] [address] Dr. Brittanie Burns Oxa-48-like Not Applicable Normal NOT DETECTED [facility] Comment on above: Performed By: #### L YMA #### [facility] [address] [place] [address] Dr. Brittanie Burns Proteus Not detected Normal NOT DETECTED [facility] Comment on above: Performed By: #### L YMA #### [facility] [address] [address] [address] Brittanie Burns Pseud. aeruginosa Not detected Normal NOT DETECTED [facility] Comment on above: Performed By: #### L YMA #### [facility] [address] [address] [address] Brittanie Burns S. maltophilia Not detected Normal NOT DETECTED [facility] Comment on above: Performed By: #### L YMA #### [facility] [address] [address] [address] Brittanie Burns Salmonella Not detected Normal NOT DETECTED [facility] Comment on above: Performed By: #### L YMA #### [facility] [address] [address] [address] Brittanie Burns Seratia marcescens Not detected Normal NOT DETECTED [facility] Comment on above: Performed By: #### L YMA #### [facility] [address] [address] [address] Brittanie Burns Site: Lt Forearm Normal [facility] Comment on above: Performed By: #### L YMA #### [facility] [address] [place] [address] Dr. Brittanie Burns Staph. aureus Not detected Normal NOT DETECTED [facility] Comment on above: Performed By: #### L YMA #### [facility] [address] [address] [address] Brittanie Burns Staph. epidermidis Not detected Normal NOT DETECTED [facility] Comment on above: Performed By: #### L YMA #### [facility] [address] [address] [address] Brittanie Burns Staprufino. lugdunensis Not detected Normal NOT DETECTED [facility] Comment on above: Performed By: #### L YMA #### [facility] [address] [address] [address] Brittanie Burns Staphylococcus Detected Critically abnormal NOT DETECTED [facility] Comment on above: Performed By: #### L YMA #### [facility] [address] [place] [address] Dr. Brittanie Burns Strep. agalactiae Not detected Normal NOT DETECTED [facility] Comment on above: Performed By: #### L YMA #### [facility] [address] [place] [address] Dr. Brittanie Burns Strep. pneumoniae Not detected Normal NOT DETECTED [facility] Comment on above: Performed By: #### L YMA #### [facility] [address] [place] [address] Dr. Brittanie Burns Strep. pyogenes Not detected Normal NOT DETECTED [facility] Comment on above: Performed By: #### L YMA #### [facility] [address] [place] [address] Dr. Brittanie Burns Streptococcus Not detected Normal NOT DETECTED [facility] Comment on above: Performed By: #### L YMA #### [facility] [address] [place] [address] Dr. Brittanie Burns Golden/Yesy Resist. Gene Not Applicable Normal NOT DETECTED [facility] Comment on above: Performed By: #### L YMA #### [facility] [address] [place] [address] Dr. Brittanie Burns VIM Resistant Gene Not Applicable Normal NOT DETECTED [facility] Comment on above: Performed By: #### L YMA #### [facility] [address] [place] [address] Dr. Brittanie Burns BNPon 10-16-2022 Natriuretic peptide B (Bld) [Mass/Vol] 881.0 pg/mL Normal <=900.0 [facility] Comment on above: Performed By: #### B 12FOL #### [facility] [address] [place] [address] Dr. Brittanie Burns CARDIAC TING ADMITon 023 CK [Catalytic activity/Vol] 153 U/L Normal 39-308 [facility] Comment on above: Performed By: #### B 12FOL #### [facility] [address] [place] [address] Dr. Brittanie Burns CK.MB [Mass/Vol] 1.86 ng/mL Normal <=3.60 [facility] Comment on above: Performed By: #### B 12FOL #### [facility] [address] [place] [address] Dr. Brittanie Burns HSTROP 29.4 pg/mL Normal 4.0-76.1 [facility] Comment on above: Result Comment: CUT- OFF POINTS HAVE BEEN ESTABLISHED BASED ON THE FOURTH UNIVERSAL DEFINITIONS OF MYOCARDIAL INFARCTION. THE UPPER REFERENCE LIMIT (URL) OF TROPONIN, DEFINED THE 99TH PERCENTILE OF cTnI DISTRIBUTION IN A REFERENCE POPULATION, HAS BEEN CONFIRMED THE DECISION THRESHOLD FOR [place] DIAGNOSIS. Performed By: #### B 12FOL #### [facility] [address] [place] [address] Dr. Brittanie Burns LYRIC 201 ng/mL Critically high 16-96 [facility] Comment on above: Performed By: #### B 12FOL #### [facility] [address] [place] [address] Dr. Brittanie Burns CBC AUTO DIFFon 10-16-2022 BASO # 0.1 103/ul Normal 0.0-0.1 [facility] Comment on above: Performed By: #### C BC #### [facility] [address] [place] [address] Dr. Brittanie Burns Basophils/100 WBC (Bld) 0.6 % Normal 0.2-2.0 [facility] Comment on above: Performed By: #### C BC #### [facility] [address] [place] [address] Dr. Brittanie Burns EO # 0.1 103/ul Normal 0.0-0.7 [facility] Comment on above: Performed By: #### C BC #### [facility] [address] [place] [address] Dr. Brittanie Burns Eosinophils/100 WBC (Bld) 0.8 % Critically low 0.9-7. 0 [facility] Comment on above: Performed By: #### C BC #### [facility] [address] [place] [address] Dr. Brittanie Burns Erythrocyte distribution wid th (RBC) [Ratio] 13.7 % Normal 11.0-15.0 [facility] Comment on above: Performed By: #### C BC #### [facility] [address] [place] [address] Dr. Brittanie Burns Hematocrit (Bld) [Volume fraction] 41.4 % Critically low 42.0-54.0 [facility] Comment on above: Performed By: #### C BC #### [facility] [address] [place] [address] Dr. Brittanie Burns Hemoglobin (Bld) [Mass/Vol] 13.9 g/dL Critically low 14.0 -18.0 [facility] Comment on above: Performed By: #### C BC #### [facility] [address] [place] [address] Dr. Brittanie Burns IG # 0.05 10e3/ul Critically high 0.00-0.03 [facility] Comment on above: Performed By: #### C BC #### [facility] [address] [place] [address] Dr. Brittanie Burns IG % 0.4 % Normal 0.0-0.5 [facility] Comment on above: Performed By: #### C BC #### [facility] [address] [place] [address] Dr. Brittanie Burns LYMPH # 1.4 103/ul Normal 1.2-3.8 [facility] Comment on above: Performed By: #### C BC #### [facility] [address] [place] [address] Dr. Brittanie Burns Lymphocytes/100 WBC (Bld) 11.0 % Critically low 20.5-6 0.0 [facility] Comment on above: Performed By: #### C BC #### [facility] [address] [place] [address] Dr. Brittanie Burns MANUAL DIFF REQ NO Normal [facility] Comment on above: Performed By: #### C BC #### [facility] [address] [place] [address] Dr. Brittanie Burns MCH (RBC) [Entitic mass] 30.5 pg Normal 25.9-34.0 [facility] Comment on above: Performed By: #### C BC #### [facility] [address] [place] [address] Dr. Brittanie Burns MCHC (RBC) [Mass/Vol] 33.6 g/dL Normal 29.9-35.2 [facility] Comment on above: Performed By: #### C BC #### [facility] [address] [place] [address] Dr. Brittanie Burns MCV (RBC) [Entitic vol] 91.0 fL Normal 80.0-94.0 [facility] Comment on above: Performed By: #### C BC #### [facility] [address] [place] [address] Dr. Brittanie Burns MONO # 1.2 103/ul Critically high 0.3-0.8 [facility] Comment on above: Performed By: #### C BC #### [facility] [address] [place] [address] Dr. Brittanie Burns Monocytes/100 WBC (Bld) 9.3 % Normal 1.7-12.0 [facility] Comment on above: Performed By: #### C BC #### [facility] [address] [place] [address] Dr. Brittanie Burns NEUT # 10.0 103/ul Critically high 1.4-6.5 [facility] Comment on above: Performed By: #### C BC #### [facility] [address] [place] [address] Dr. Brittanie Burns Neutrophils/100 WBC (Bld) 77.9 % Critically high 43.0- 75.0 [facility] Comment on above: Performed By: #### C BC #### [facility] [address] [place] [address] Dr. Brittanie Burns Platelet mean volume (Bld) [Entitic vol] 9.6 fL Normal 9.5-13.5 [facility] Comment on above: Performed By: #### C BC #### [facility] [address] [place] [address] Dr. Brittanie Burns PLT 269 103/ul Normal 150-450 [facility] Comment on above: Performed By: #### C BC #### [facility] [address] [place], [place] [address] Dr. Brittanie Burns RBC 4.55 106/ul Critically low 4.70-6.10 [facility] Comment on above: Performed By: #### C BC #### [facility] [address] [place], [place] [address] Dr. Brittanie Burns WBC 12.8 103/ul Critically high 4.0-11.0 [facility] Comment on above: Performed By: #### C BC #### [facility] [address] [place], [place] [address] ABD/PELVIS WO CONon 10-16 CT ABD/PELVIS WO CON EXAMINATION: CT ABD /PELVIS WO CON, 10/16/2022 1:52 PM EDT HISTORY: Acute renal failure syndrome COMPARISON: None. TECHNIQUE: CT scan of the abdomen and pelvis was performed without IV contrast. CT dose reduction technique was used, including Automated Exposure Control. FINDINGS: LOWER CHEST: Normal. LIVER: Normal in size and attenuation. No focal lesions. GALLBLADDER AND BILIARY SYSTEM: Normal. SPLEEN: The spleen appears markedly atrophic. PANCREAS: Normal. ADRENAL GLANDS: Normal. KIDNEYS AND URETERS: Mild to moderate bilateral perinephric stranding consistent with medical renal disease. No stones or hydronephrosis. No hydroureter or ureteral stones. VASCULATURE: There is diffuse atherosclerotic calcification of the aorta, iliac and femoral arteries. RETROPERITONEUM AND LYMPH NODES: Normal, with no lymphadenopathy. GASTROINTESTINAL TRACT/MESENTERY: Normal appearance of the stomach, small and large bowel. Normal mesentery/peritoneum. Normal appendix. BLADDER: There is a Buckner catheter within the urinary bladder. The bladder is decompressed. There is mild wall thickening. There is a tiny amount of air in the anterior urinary bladder likely due to the Buckner catheter. REPRODUCTIVE SYSTEM: Prostate gland is normal in size with coarse calcifications. BODY WALL: There is a small fat-containing umbilical hernia. Small fat-containing left inguinal hernia. BONES: Moderate multilevel degenerative changes of the lumbar spine. Grade 1 anterolisthesis at L4-L5 measuring 8.5 mm, likely due to facet arthropathy. There is mild sclerosis in the L4 vertebral body. IMPRESSION: 1. No urolithiasis or obstructive uropathy. There is perinephric stranding consistent with medical renal disease. 2. No other acute process by limited noncontrast CT. 3. Atrophic spleen. 4. Small fat-containing umbilical hernia and small fat-containing left inguinal hernia. 5. Buckner catheter within the urinary bladder. There is bladder wall thickening which may be due to underdistention, chronic outlet obstruction and/or cystitis. 6. Grade 1 anterolisthesis at L4-5 likely due to facet arthropathy. There is mild nonspecific sclerosis at L4 which may be degenerative in nature. If the patient has a history of cancer, follow-up MRI and/or whole body bone scan may be considered. Electronically authenticated by: KYLE BOYLE Date: 2022-10-16 15:02 Normal [facility] CT STROKE HEAD WOon 10-17-19 CT STROKE HEAD WO EXAMINATION: CT STRO KE HEAD WO, 10/16/2022 12:42 PM EDT HISTORY: Cerebrovascular accident COMPARISON: None. TECHNIQUE: CT scan of the head was performed without IV contrast. CT dose reduction technique was used, including Automated Exposure Control. FINDINGS: BRAIN PARENCHYMA/CSF SPACES: Moderately enlarged ventricles and sulci consistent with atrophy. There is no hemorrhage, mass effect or midline shift. 6 mm chronic infarct in the left cerebellum. Moderate chronic infarct in the right parietotemporal region. Mild to moderate low-attenuation in the white matter consistent with chronic microvascular ischemia. PARANASAL SINUSES: Clear. SKULL BASE AND CALVARIUM: Normal. EXTRACRANIAL SOFT TISSUES: Normal. IMPRESSION: 1. No acute intracranial abnormality. 2. 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 Electronically authenticated by: KYLE BOYLE Date: 2022-10-16 13:12 Normal [facility] CULTURE BLOODon 10-16-2022 Microscopic examination of blood, culture Culture Observations: NO GROWTH AT 5 DAYS. Normal [facility] Comment on above: Performed By: #### C BC #### [facility] [address] [place] [address] Dr. Brittanie Burns CULTURE URINEon 10-16-2022 CULTURE URINE Culture Observations : NO GROWTH. Normal [facility] Comment on above: Performed By: #### C BC #### [facility] [address] [address] [address] Brittanie Burns Covid-19 PCR ([facility])on 09-22 SARS-CoV-2 (COVID-19) RNA HOPE+probe Ql (Unsp spec) Not detected Normal NOT DETECTED [facility] Comment on above: Result Comment: When diagnostic testing is negative, the possibility of a false negative should be considered in the context of a patient's recent exposures and the presence of clinical signs and symptoms consistent with SARS-CoV-2. This test is not yet approved or cleared by the [place] FDA. When there are no FDA-approved or cleared tests available, and other criteria are met, FDA can make tests available under an emergency access mechanism called an Emergency Use Authorization (EUA). The EUA for this test is supported by the [employer] of Health and Human Service's declaration that circumstances exist to justify the emergency use of in vitro diagnostics for the detection and/or diagnosis of the virus that causes COVID-19. This EUA will remain in effect for the duration of the COVID-19 declaration justifying emergency of IVDs, unless it is terminated or revoked by the FDA (after which the test may no longer be used). Performed By: #### D RUGRPD #### [facility] [address] [place] [address] Dr. Brittanie Burns DRUG SCREEN RAPID (URINE)on 10-16-2022 AMP Negative Normal NEGATIVE [facility] Comment on above: Performed By: #### D RUGRPD #### [facility] [address] [place] [address] Dr. Brittanie Burns BAR Negative Normal NEGATIVE [facility] Comment on above: Performed By: #### D RUGRPD #### [facility] [address] [place], [place] [id number] Dr. Brittanie Burns BUP Negative Normal NEGATIVE [facility] Comment on above: Performed By: #### D RUGRPD #### [facility] [address] [place] [address] Dr. Brittanie Burns BZO Negative Normal NEGATIVE [facility] Comment on above: Performed By: #### D RUGRPD #### [facility] [address] [place] [address] Dr. Brittanie Burns MARCELA Negative Normal NEGATIVE [facility] Comment on above: Performed By: #### D RUGRPD #### [facility] [address] [place] [address] Dr. Brittanie Burns CUT-OFFS SEE BELOW Normal [facility] Comment on above: Result Comment: AMP (Amphetamine): 500ng/mL, BAR (Barbituates): 200 ng/mL, BZO (Benzodiazepines): 150 ng/mL, BUP (Buprenorphine): 10 ng/mL, MARCELA (Cocaine): 150 ng/mL, mAMP (Methamphetamine): 500 ng/mL, MTD (Methadone): 200 ng/mL, OPI (Opiates): 100 ng/mL, OXY (Oxycodone): 100 ng/mL, PCP (Phencyclidine): 25 ng/mL, PPX (Propoxyphene): 300 ng/mL, THC (Cannabinoids): 50 ng/mL, TCA (Trycyclic Antidepressants): 300 ng/mL Performed By: #### D RUGRPD #### [facility] [address] [place] [address] Dr. Brittanie Burns DRUG CUT HEADER DRUG CLASS TEST SYST EM CUT-OFF CONCENTRATIONS ARE FOLLOWS: Normal [facility] Comment on above: Performed By: #### D RUGRPD #### [facility] [address] [place] [address] Dr. Brittanie Burns mAMP Negative Normal NEGATIVE [facility] Comment on above: Performed By: #### D RUGRPD #### [facility] [address] [place] [address] Dr. Brittanie Burns MTD Negative Normal NEGATIVE [facility] Comment on above: Performed By: #### D RUGRPD #### [facility] [address] [place] [address] Dr. Brittanie Burns OPI Negative Normal NEGATIVE [facility] Comment on above: Performed By: #### D RUGRPD #### [facility] [address] [place] [address] Dr. Brittanie Burns OXY Negative Normal NEGATIVE [facility] Comment on above: Performed By: #### D RUGRPD #### [facility] [address] [place] [address] Dr. Brittanie Burns PCP Negative Normal NEGATIVE [facility] Comment on above: Performed By: #### D RUGRPD #### [facility] [address] [place] [address] Dr. Brittanie Burns PPX Negative Normal NEGATIVE [facility] Comment on above: Performed By: #### D RUGRPD #### [facility] [address] [place] [address] Dr. Brittanie Burns TCA Negative Normal NEGATIVE [facility] Comment on above: Performed By: #### D RUGRPD #### [facility] [address] [place] [address] Dr. Brittanie Burns THC Positive Abnormal NEGATIVE [facility] Comment on above: Performed By: #### D RUGRPD #### [facility] [address] [place] [address] Dr. Brittanie Burns ER URINE PROFILEon 3 Bilirubin Ql (U) Negative Normal NEGATIVE [facility] Comment on above: Performed By: #### D RUGRPD #### [facility] [address] [place] [address] Dr. Brittanie Burns Clarity (U) CLEAR Normal CLEAR [facility] Comment on above: Performed By: #### D RUGRPD #### [facility] [address] [place] [address] Dr. Brittanie Burns Color (U) LT. YELLOW Normal YELLOW [facility] Comment on above: Performed By: #### D RUGRPD #### [facility] [address] [place] [address] Dr. Brittanie Burns ERUAHD A micrscopic examina tion will be performed if indicated. Normal [facility] Comment on above: Performed By: #### D RUGRPD #### [facility] [address] [address] [address] Brittanie Burns Glucose Ql (U) Negative Normal NEGATIVE [facility] Comment on above: Performed By: #### D RUGRPD #### [facility] [address] [address] [address] Brittanie Burns Hemoglobin Ql (U) SMALL Abnormal NEGATIVE The [facility] Comment on above: Performed By: #### D RUGRPD #### [facility] [address] [address] [address] Brittanie Burns Ketones Ql (U) Negative Normal NEGATIVE The [facility] Comment on above: Performed By: #### D RUGRPD #### [facility] [address] [place] [address] Dr. Brittanie Burns LEUKOCYTES Negative Normal NEGATIVE The [facility] Comment on above: Performed By: #### D RUGRPD #### [facility] [address] [place] [address] Dr. Brittanie Burns Nitrite Ql (U) Negative Normal NEGATIVE The [facility] Comment on above: Performed By: #### D RUGRPD #### [facility] [address] [place] [address] Dr. Brittanie Burns pH (U) 6.0 [pH] Normal 5-9 The [facility] Comment on above: Performed By: #### D RUGRPD #### [facility] [address] [place] [address] Dr. Brittanie Bunrs SPEC GRAVITY 1.010 Normal 1.005-<=1.025 The [facility] Comment on above: Performed By: #### D RUGRPD #### [facility] [address] [place] [address] Dr. Brittanie Burns UA PROTEIN Negative Normal NEGATIVE/ TRACE The [facility] Comment on above: Performed By: #### D RUGRPD #### [facility] [address] [place] [address] Dr. Brittanie Burns UR MICRO IND INDICATED Normal The [facility] Comment on above: Performed By: #### D RUGRPD #### [facility] [address] [place] [address] Dr. rBittanie Burns Urobilinogen Qn (U) 0.2 {Alice'U}/dL Normal 0.2 - 1. 0 [facility] Comment on above: Performed By: #### D RUGRPD #### [facility] [address] [address] [address] Brittanie Burns ETHANOL (BLD ALC)on 10-17-19 ALC NOTE NOTE: 80 mg/dl is th e legal limit for a blood alcohol level Normal [facility] Comment on above: Performed By: #### L YMA #### [facility] [address] [place] [address] Dr. Brittanie Burns Ethanol [Mass/Vol] mg/dL Normal [facility] Comment on above: Performed By: #### L YMA #### [facility] [address] [place] [address] Dr. Brittanie Burns LACTATE/LACTIC ACIDon 2022 Lactate [Moles/Vol] 1.1 mmol/L Normal 0.4-2.0 [facility] Comment on above: Performed By: #### L ACT #### [facility] [address] [place] [address] Dr. Brittanie Burns POINT OF CARE GLUCOSEon 09-22 Glucose [Mass/Vol] 129 mg/dL Critically high 74-106 [facility] Comment on above: Performed By: #### D RUGRPD #### [facility] [address] [place] [address] Dr. Brittanie Burns PROF 14(COMP METB)on 023 Albumin [Mass/Vol] 3.6 g/dL Normal 3.4-5.0 [facility] Comment on above: Performed By: #### B 12FOL #### [facility] [address] [place] [address] Dr. Brittanie Burns Albumin/Globulin [Mass ratio] 0.9 {ratio} Normal [facility] Comment on above: Performed By: #### B 12FOL #### [facility] [address] [place] [address] Dr. Brittanie Burns ALP [Catalytic activity/Vol] 87 U/L Normal 46-116 [facility] Comment on above: Performed By: #### B 12FOL #### [facility] [address] [address] [address] Brittanie Burns ALT [Catalytic activity/Vol] 13 U/L Critically low 16- 63 [facility] Comment on above: Performed By: #### B 12FOL #### [facility] [address] [address] [address] Brittanie Burns Anion gap [Moles/Vol] 17.9 mmol/L Normal Th [facility] Comment on above: Performed By: #### B 12FOL #### [facility] [address] [place] [address] Dr. Brittanie Burns AST [Catalytic activity/Vol] 20 U/L Normal 15-37 [facility] Comment on above: Performed By: #### B 12FOL #### [facility] [address] [address] [address] Brittanie Burns Bilirubin [Mass/Vol] 0.3 mg/dL Normal 0.2-1.0 [facility] Comment on above: Performed By: #### B 12FOL #### [facility] [address] [place] [address] Dr. Brittanie Burns Calcium [Mass/Vol] 9.5 mg/dL Normal 8.5-10.1 [facility] Comment on above: Performed By: #### B 12FOL #### [facility] [address] [place] [address] Dr. Brittanie Burns Chloride [Moles/Vol] 103 mmol/L Normal 98-107 [facility] Comment on above: Performed By: #### B 12FOL #### [facility] [address] [address] [address] Brittanie Burns CO2 [Moles/Vol] 22.2 mmol/L Normal 21.0-32.0 [facility] Comment on above: Performed By: #### B 12FOL #### [facility] [address] [place] [address] Dr. Brittanie Burns Creatinine [Mass/Vol] 7.79 mg/dL Critically high 0.70-1.30 [facility] Comment on above: Performed By: #### B 12FOL #### [facility] [address] [address] [address] Brittanie Burns EGFR-AF SLOVAK 8 mL/min/1.73m2 Critically low >=60 [facility] Comment on above: Performed By: #### B 12FOL #### [facility] [address] [address] [address] Brittanie Burns EGFR-NON AF [place]OV[place] 7 mL/min/1.73m2 Critically low >=60 [facility] Comment on above: Performed By: #### B 12FOL #### [facility] [address] [place] [address] Dr. Brittanie Burns Globulin (S) [Mass/Vol] 4.0 g/dL Normal [facility] Comment on above: Performed By: #### B 12FOL #### [facility] [address] [place] [address] Dr. Brittanie Burns Glucose [Mass/Vol] 129 mg/dL Critically high 74-106 [facility] Comment on above: Performed By: #### B 12FOL #### [facility] [address] [place] [address] Dr. Brittanie Burns Potassium [Moles/Vol] 5.1 mmol/L Normal 3.5-5.1 [facility] Comment on above: Performed By: #### B 12FOL #### [facility] [address] [place] [address] Dr. Brittanie Burns Protein [Mass/Vol] 7.6 g/dL Normal 6.4-8.2 [facility] Comment on above: Performed By: #### B 12FOL #### [facility] [address] [place] [address] Dr. Brittanie Burns Sodium [Moles/Vol] 138 mmol/L Normal 136-145 [facility] Comment on above: Performed By: #### B 12FOL #### [facility] [address] [address] [address] Brittanie Burns Urea nitrogen [Mass/Vol] 44.0 mg/dL Critically high 7.0-18 .0 [facility] Comment on above: Performed By: #### B 12FOL #### [facility] [address] [place] [address] Dr. Brittanie Burns Urea nitrogen/Creatinine [Mass ratio] 5.6 mg/mg Normal [facility] Comment on above: Performed By: #### B 12FOL #### [facility] [address] [place] [address] Dr. Brittanie Burns PROF CHEM 8 (BAS METB)on Anion gap [Moles/Vol] 15.7 mmol/L Normal [facility] Comment on above: Performed By: #### B MP #### [facility] [address] [place] [address] Dr. Brittanie Burns Calcium [Mass/Vol] 8.7 mg/dL Normal 8.5-10.1 [facility] Comment on above: Performed By: #### B MP #### [facility] [address] [place] [address] Dr. Brittanie Burns Chloride [Moles/Vol] 108 mmol/L Critically high 98-107 [facility] Comment on above: Performed By: #### B MP #### [facility] [address] [place] [address] Dr. Brittanie Burns CO2 [Moles/Vol] 23.1 mmol/L Normal 21.0-32.0 [facility] Comment on above: Performed By: #### B MP #### [facility] [address] [place] [address] Dr. Brittanie Burns Creatinine [Mass/Vol] 7.19 mg/dL Critically high 0.70-1.30 [facility] Comment on above: Performed By: #### B MP #### [facility] [address] [place] [address] Dr. Brittanie Burns EGFR-AF SLOVAK 9 mL/min/1.73m2 Critically low >=60 [facility] Comment on above: Performed By: #### B MP #### [facility] [address] [address] [address] Brittanie Burns EGFR-NON AF [place] 8 mL/min/1.73m2 Critically low >=60 [facility] Comment on above: Performed By: #### B MP #### [facility] [address] [address] [address] Brittanie Burns Glucose [Mass/Vol] 102 mg/dL Normal 74-106 [facility] Comment on above: Performed By: #### B MP #### [facility] [address] [address] [address] Brittanie Burns Potassium [Moles/Vol] 4.8 mmol/L Normal 3.5-5.1 [facility] Comment on above: Performed By: #### B MP #### [facility] [address] [address] [address] Brittanie Burns Sodium [Moles/Vol] 142 mmol/L Normal 136-145 [facility] Comment on above: Performed By: #### B MP #### [facility] [address] [address] [address] Brittanie Burns Urea nitrogen [Mass/Vol] 44.0 mg/dL Critically high 7.0-18 .0 [facility] Comment on above: Performed By: #### B MP #### [facility] [address] [address] [address] Brittanie Burns Urea nitrogen/Creatinine [Mass ratio] 6.1 mg/mg Normal [facility] Comment on above: Performed By: #### B MP #### [facility] [address] [address] [address] Brittanie Burns PROTIMEon 10-16-2022 INR Coag (PPP) [Relative time] {INR} Normal [facility] Comment on above: Performed By: #### B 12FOL #### [facility] [address] [address] [address] Brittanie Burns INR GUIDELINES SEE BELOW Normal [facility] Comment on above: Result Comment: GINGER RED INR: 2.0 - 3.0 CONDITIONS NOT LISTED BELOW 2.5 - 3.5 FOR PROSTHETIC HEART VALVE REPLACEMENT 2.5 - 3.5 RECURRENT THROMBOSIS Performed By: #### B 12FOL #### [facility] [address] [place] [address] Dr. Brittanie Burns PT Coag (PPP) [Time] 9.8 s Normal 9.0-11.6 [facility] Comment on above: Performed By: #### B 12FOL #### [facility] [address] [place] [address] Dr. Brittanie Burns PTTon 10-16-2022 aPTT Coag (Bld) [Time] 27.1 s Normal 22.3-36.2 Th [facility] Comment on above: Performed By: #### B 12FOL #### [facility] [address] [place] [address] Dr. Brittanie Burns SALICYLATEon 10-16-2022 SALICYLATE 7.2 mg/dL Normal <=19.9 [facility] Comment on above: Performed By: #### L YMA #### [facility] [address] [place] [address] Dr. Brittanie Burns URINE MICROSCOPIC ONLYon BACTERIA SMALL Abnormal NONE SEEN The [facility] Comment on above: Performed By: #### D RUGRPD #### [facility] [address] [place] [address] Dr. Brittanie Burns Bacteria identified Cx Nom (U) INDICATED Normal [facility] Comment on above: Performed By: #### D RUGRPD #### [facility] [address] [place] [address] Dr. Brittanie Burns CAST NONE SEEN Normal NONE SEEN [facility] Comment on above: Performed By: #### D RUGRPD #### [facility] [address] [place] [address] Dr. Brittanie Burns Crystals LM Nom (Urine sed) NONE SEEN Normal NONE SEE N [facility] Comment on above: Performed By: #### D RUGRPD #### [facility] [address] [place] [address] Dr. Brittanie Burns Epithelial cells LM Ql (Urine sed) RARE Normal N ONE SEEN /RARE [facility] Comment on above: Performed By: #### D RUGRPD #### [facility] [address] [address] [address] Brittanie Burns MUCOUS NONE SEEN Normal NONE SEEN [facility] Comment on above: Performed By: #### D RUGRPD #### [facility] [address] [address] [address] Brittanie Burns RBC 2-5 Abnormal 0-2 [facility] Comment on above: Performed By: #### D RUGRPD #### [facility] [address] [address] [address] Brittanie Burns WBC 2-5 Abnormal NONE SEEN [facility] Comment on above: Performed By: #### D RUGRPD #### [facility] [address] [place] [address] Dr. Brittanie Burns XR CHEST 1 Von 10-16-2022 XR CHEST 1 V EXAM: XR CHEST 1 V HISTORY: Acute confusion COMPARISON: 10/21/2020 TECHNIQUE: Single view of the chest FINDINGS: Heart size normal. No focal consolidation, pleural effusion, pulmonary congestion or pneumothorax. Patient is rotated. Multiple external lines. IMPRESSION: No acute findings. Electronically authenticated by: MYKEL ZELAYA Date: 2022-10-16 13:33 Normal [facility] Encounters Encounter Date Encounter Type Care Provider Facility Start: 12-21-2022 End: 12-21-2022 ambulatory MEDEROS H FAWWAD Facility:[facility] Start: 11-25-2022 End: 11-26-2022 ambulatory MEDEROS H FAWWAD Facility:[facility] Start: 11-18-2022 End: 11-18-2022 ambulatory MEDEROS H FAWWAD Facility:[facility] Start: 10-31-2022 End: 11-01-2022 ambulatory [facility] Start: 10-31-2022 End: 10-31-2022 Subsequent hospital visit by physician Ruben Soto MD Work Phone: [facility] Start: 10-26-2022 End: 10-27-2022 ambulatory IRFAN AHMED [facility] Start: 10-26-2022 End: 10-26-2022 Subsequent hospital visit by physician Ruben Soto MD Work Phone: [facility] Start: 10-24-2022 End: 10-25-2022 ambulatory SCOUT HOLCOMB [facility] Start: 10-16-2022 End: 10-21-2022 Evaluation and management of inpatient DR TD HURST . Facility:[facility]1 Start: 07-04-2022 End: 07-05-[address] DELISA MONTGOMERY . Facility:[facility] Start: 06-22-2022 End: 06-23-[address] KYLE DOLAN Facility:[facility] Start: 06-10-2020 End: 06-10-2020 Patient encounter procedure NONE LISTED REQUEST Facility: Procedures Date Procedure Procedure Detail Performing Clinician Start: 12-21-[address] ALLA MONTGOMERY . Comment on above: Performed By: #### B 12FOL #### [facility] [address] [place] [address] Dr. Brittanie Burns Start: 10-31-2022 Basic metabolic panel calcium total Melodie Nixon MD Work Phone: Start: 10-26-2022 Lipid panel Ruben morales MD Work Phone: Plan of Treatment Date Care Activity Detail Author Start: 02-21-2023 Influenza vaccination Flu vacc ine (Season Ended) [facility] Start: 1969 DTaP/Tdap/Td vaccine (1 - Tdap) DTaP/Tdap/Td vaccine (1 - Tdap) [employer] [facility] Start: 01-08-1951 COVID-19 Vaccine (#1) COVID-19 Vacci ne (#1) [facility] Payers Date Payer Category Payer Unknown [id number] 1959 Medicaid [id number] 1959 Medicare [id number] 1950 Unknown [id number] 2.16.84 [id number] 1950 Unknown [id number] 2.16.8 [id number] 1950 Unknown [id number] 2.16.84 [id number] 1950 Unknown [id number] 2.16.84 [id number] 1950 Unknown [id number] 2.16.84 [id number] 1950 Unknown [id number] 2.16.84 [id number] 1950 Unknown [id number] 2.16.84 [id number] 1950 Unknown [id number] 2.16.84 [id number] Social History Date Type Detail Facility Tobacco smoking stat [facility] Tobacco smoking consumption unknown [facility] [employer] Phone: Start: 1950 Sex Assigned At Not on file [facility] [employer] Phone: Clinical Note 06-23-2022 Note Date & Type Note Facility 06-23-2022 Note PROCEDURE: XR HIP RT 2 3V WO PELVIS HISTORY: Pain in right hip joint ; right groin pain for one month, no known injury COMPARISON: None. FINDINGS: BONES:No fracture, acute abnormality, or significant arthropathy. SOFT TISSUES:No visible soft tissue swelling. EFFUSION:None visible. OTHER: Negative. IMPRESSION: 1. No acute bone abnormality. 2. 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 Electronically authenticated by: KYLE DOLAN Date: 2022-06-22 23:22 [facility] Summary Purpose Family History No Family History Records FoundNo Family History Records FoundNo Family History Records Found Advance Directives No Advanced Directives Records FoundNo Advanced Directives Records FoundNo Advanced Directives Records Found Additional Source Comments (unrecognized sect ion and content) No Status Records FoundNo Status Records FoundNo Status Records Found INFORMATION SOURCE (unrecogn ized section and content) DATE CREATED AUTHOR 06/11/2020 [facility] DATE CREATED AUTHOR AUTHOR'S ORGANIZ ATION 11/01/2022 Karin Keene pitamanda DATE CREATED AUTHOR AUTHOR'S ORGANIZ ATION 12/30/2022 [facility] Care Teams (unrecognized sec tion and content) It Desktop Support Technician Relationship Specialty Start Date End Date Ruben Soto MD [address] [place] [address] PCP - General Psychiatry 10/24/22 FOR RECORDS PERTAINING TO PATIENTS WHO ARE OR HAVE BEEN ENROLLED IN A CHEMICAL DEPENDENCY/SUBSTANCEABUSE PROGRAM, SOME INFORMATION MAY BE OMITTED. This clinical summary was aggregated from multiple sources. Caution should be exercised in using it in the provision of clinical care. This summary normalizes information from multiple sources, and as a consequence, information in this document may materially change the coding, format and clinical context of patient data. In addition, data may be omitted in some cases. CLINICAL DECISIONS SHOULD BE BASED ON THE PRIMARY CLINICAL RECORDS. [facility] [employer] provides no warranty or guarantee of the accuracy or completeness of information in this document.
[2023-07-12 12:47] LABS: Urine Microscopic Indicated NO
== END 2023-07-12 12:25 | disposition home or self-care (01) ==
LOC: LAB 03:37
PROVIDERS: PCP Family Medicine; Visit Provider Nurse Practitioner Family
DX: E03.9 Hypothyroidism, unspecified (principal); E11.9 Type 2 diabetes mellitus without complications; N17.9 Acute kidney failure, unspecified; I50.43 Acute on chronic combined systolic (congestive) and diastolic (congestive) heart failure; R05.9 Cough, unspecified; R06.02 Shortness of breath
CPT/HCPCS: 36415; 80048; 81003; 83880; 84439; 85027

== ENCOUNTER 2023-07-17 08:41 | Inpatient (IN) | payer MEDICARE, MEDICAID, SELFPAY ==
[2023-07-17] VITALS (125 sets, daily range): BP systolic 65–130; BP diastolic 44–94; PULSE 71–175; RESP 13–32; TEMP 36.4–38.5; O2SAT 58–100; BMI 19.4; BMI 23.9
--- NOTE | 2023-07-17 08:52 | ECG_ITS ---
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
--- NOTE | 2023-07-17 08:52 | XR_ITS ---
The [address] [address] Patient Name: SHELBY VALERIO MRN: [id number] date: 1950 Sex: M Assigned Patient Location: ER Current Patient Location: ER Accession/Order Number: [id number] Exam Date: 07/17/2023 08:55 Report Date: 07/17/2023 09:40 At the request of: RAKESH BOWEN Procedure: XR chest 1V FRONTAL CHEST; 07/17/2023 8:55 AM EST Clinical History:postintubation Comparison: 02/20/2023 . AP supine view. Some rotation to the right. ET tube projects over the trachea approximately 2.5 cm superior to the level of the thoracic inlet. No apparent change osseous structures. No change cardiac and mediastinal silhouettes are nacho allowing for differences in projection. No failure pattern. No pleural effusion. Mild increased markings at the bases, left greater than right. XR/XR chest 1V IMPRESSION: 1. Interval ET tube placement. The tip is too high. 2. Increased markings at the bases, left greater than right, are nonspecific. Electronically authenticated by: RIC WANG Date: 07/17/2023 09:40
--- NOTE | 2023-07-17 08:57 | XR_ITS ---
The [address] [address] Patient Name: SHELBY VALERIO MRN: [id number] date: 1950 Sex: M Assigned Patient Location: ER Current Patient Location: ER Accession/Order Number: [id number] Exam Date: 07/17/2023 08:59 Report Date: 07/17/2023 09:39 At the request of: RAKESH BOWEN Procedure: XR chest 1V FRONTAL CHEST; 07/17/2023 8:59 AM EST Clinical History:ET tube advanced, check placement Comparison: Several minutes earlier on the same day . AP portable upright film. Interval advancement of ET tube. This tip projects are over the trachea at the level of thoracic inlet. XR/XR chest 1V IMPRESSION: 1. As above. Electronically authenticated by: RIC WANG Date: 07/17/2023 09:39
[2023-07-17 09:07] LABS: Basophils Absolute Auto 0.1 10^3/uL (0.0-0.1); Basophils Percent Auto 0.7 % (0.2-2.0); Eosinophils Absolute Auto 0.5 10^3/uL (0.0-0.7); Eosinophils Percent Auto 4.3 % (0.9-7.0); Hematocrit 24.8 % (42.0-54.0); Immature Granulocytes Abs Auto 0.07 10^3/uL (0.00-0.03); Immature Granulocytes Pct Auto 0.7 % (0.0-0.5); Lymphocytes Absolute Auto 3.1 10^3/uL (1.2-3.8); Mean Corpuscular HGB Conc 28.2 g/dL (29.9-35.2); Mean Corpuscular Hemoglobin 28.6 pg (25.9-34.0); Mean Corpuscular Volume 101.2 fL (80.0-94.0); Mean Platelet Volume 9.5 fL (9.5-13.5); Monocytes Absolute Auto 0.9 10^3/uL (0.3-0.8); Monocytes Percent Auto 8.9 % (1.7-12.0); Neutrophils Absolute Auto 5.8 10^3/uL (1.4-6.5); Neutrophils Percent Auto 55.4 % (43.0-75.0); Platelet Count 236 10^3/uL (150-450); Red Blood Count 2.45 10^6/uL (4.70-6.10); Red Cell Distribution Width 15.2 % (11.0-15.0); White Blood Count 10.4 10^3/uL (4.0-11.0)
--- NOTE | 2023-07-17 09:18 | ED.GENADUL1 ---
HPI - General Adult General Chief complaint: Cardiac Arrest/CPR Stated complaint: resp failure Time Seen by Provider: 07/17/23 08:52 Source: patient Mode of arrival: walk-in Limitations: no limitations History of Present Illness HPI narrative: 73-year-old male who has DNR CC?A status presents by paramedics with respiratory distress. He comes in from [facility], [facility]. In reviewing his electronic health record it appears that he has a history of quadriplegia and previous aspiration. He had a PEG tube placed in January because of this issue. He was discovered to be in respiratory distress by the paramedics, somewhat unresponsive, and he was transported here on nonrebreather. They reported an O2 sat of 82 percent. Upon arrival he was in severe respiratory distress and required intubation. He was unable to provide any history. Also in reviewing his electronic health record appears that he has very limited communication but can shake his head yes or no on a typical day. No further history is obtainable. Related Data Home Medications Medication Instructions Recorded Confirmed acetaminophen 650 mg PO .every 4 hours PRN pain 02/14/23 02/14/23 amlodipine 10 mg tablet 10 mg PO DAILY 02/14/23 02/14/23 aspirin 81 mg tablet,delayed 81 mg PO DAILY 02/14/23 02/14/23 release baclofen 10 mg tablet 10 mg PO TID 02/14/23 02/14/23 clonidine HCl 0.1 mg tablet 0.1 mg PO BID 02/14/23 02/14/23 collagenase clostridium histo. 250 topical 02/14/23 unit/gram topical ointment (Santyl) divalproex 125 mg capsule,delayed 125 mg PO TID 02/14/23 02/14/23 release sprinkle gabapentin 300 mg capsule 600 mg PO BID 02/14/23 02/14/23 gabapentin 600 mg tablet mg 02/14/23 ondansetron 4 mg disintegrating 4 mg PO Q6H PRN nausea and vomiting 02/14/23 02/14/23 tablet quetiapine 25 mg tablet 75 mg PO BEDTIME 02/14/23 02/14/23 quetiapine 50 mg tablet 75 mg PO BEDTIME 02/14/23 02/14/23 tamsulosin 0.4 mg capsule 0.4 mg PO BEDTIME 02/14/23 02/14/23 Previous Rx's Medication Instructions Recorded food supplemt, lactose-reduced 30 ea feeding tube CONT #5,688 mL 02/22/23 0.04 gram-1.05 kcal/mL oral liquid (Ensure Original) sulfamethoxazole 200 20 ml G-tube BID 21 days #840 mL 02/22/23 mg-trimethoprim 40 mg/5 mL oral suspension water for irrigation, sterile 30 ml G-tube TID 30 days #6,000 mL 02/22/23 Allergies Allergy/AdvReac Type Severity Reaction Status Date / Time Penicillins Allergy Severe Verified 02/14/23 18:30 propoxyphene [From Darvon] Allergy Severe Unknown Verified 02/14/23 18:30 Review of Systems ROS Narrative not obtainable, severe respiratory distress [facility] Medical History (Updated 07/17/23 @ 09:52 by Brian Mayer MD) SVT (supraventricular tachycardia) ?I47.1 - Supraventricular tachycardia (ICD-10) Seizure disorder ?G40.909 - Epilepsy, unspecified, not intractable, without status epilepticus (ICD-10) Respiratory failure with hypoxia ?J96.91 - Respiratory failure, unspecified with hypoxia (ICD-10) Sepsis ?A41.9 - Sepsis, unspecified organism (ICD-10) Quadriplegia, post-traumatic ?G82.50 - Quadriplegia, unspecified (ICD-10) ?S14.109S - Unspecified injury at unspecified level of cervical spinal cord, sequela (ICD-10) Metabolic encephalopathy ?G93.41 - Metabolic encephalopathy (ICD-10) Cognitive communication deficit ?R41.841 - Cognitive communication deficit (ICD-10) UTI (urinary tract infection) ?N39.0 - Urinary tract infection, site not specified (ICD-10) Traumatic brain injury ?S06.9XAA - Unspecified intracranial injury with loss of consciousness status unknown, initial encounter (ICD-10) Muscle weakness ?M62.81 - Muscle weakness (generalized) (ICD-10) Hyperlipidemia ?E78.5 - Hyperlipidemia, unspecified (ICD-10) Hypertension ?I10 - Essential (primary) hypertension (ICD-10) Dementia ?F03.90 - Unspecified dementia, unspecified severity, without behavioral disturbance, psychotic disturbance, mood disturbance, and anxiety (ICD-10) COPD (chronic obstructive pulmonary disease) ?J44.9 - Chronic obstructive pulmonary disease, unspecified (ICD-10) Benign prostate hyperplasia ?N40.0 - Benign prostatic hyperplasia without lower urinary tract symptoms (ICD-10) Anxiety ?F41.9 - Anxiety disorder, unspecified (ICD-10) Acute kidney failure ?N17.9 - Acute kidney failure, unspecified (ICD-10) Type 2 diabetes mellitus ?E11.9 - Type 2 diabetes mellitus without complications (ICD-10) Hypothyroidism ?E03.9 - Hypothyroidism, unspecified (ICD-10) GERD (gastroesophageal reflux disease) ?K21.9 - Gastro-esophageal reflux disease without esophagitis (ICD-10) Difficulty walking ?R26.2 - Difficulty in walking, not elsewhere classified (ICD-10) Psychotic disorder ?F29 - Unspecified psychosis not due to a substance or known physiological condition (ICD-10) Congestive heart failure ?I50.9 - Heart failure, unspecified (ICD-10) Abnormal posture ?R29.3 - Abnormal posture (ICD-10) Acute respiratory distress ?R06.03 - Acute respiratory distress (ICD-10) Aspiration pneumonia ?J69.0 - Pneumonitis due to inhalation of food and vomit (ICD-10) Febrile ?R50.9 - Fever, unspecified (ICD-10) Episode of unresponsiveness ?R40.4 - Transient alteration of awareness (ICD-10) Surgical History (Updated 02/15/23 @ 12:16 by Shaikh Tierra MD) H/O craniotomy ?Z98.890 - Other specified postprocedural states (ICD-10) Social History (Updated 02/15/23 @ 12:17 by Shaikh Tierra MD) Within the past year, how often did you have a drink containing alcohol: never Score interpretation: A score less than 4 is consistent with normal alcohol consumption. Smoking status: Never smoker Non-prescribed substance use: denies use Exam Narrative Exam Narrative: Nurses note and vital signs reviewed and patient is not hypoxic. General: The patient is in severe respiratory distress. He is pale and somewhat cyanotic upon arrival. Nonrebreather is in place. Skin: Warm, diaphoretic, pallor noted. Head: Normocephalic, atraumatic Eye: Normal conjunctiva, no drainage Ears, Nose, Mouth, and Throat: oral mucosa is dry. Nares patent. Cardiovascular: Regular Rate and Rhythm Respiratory: severe respiratory distress present with minimal air movement. GI: nondistended. PEG tube in place Musculoskeletal: protective padding is present on both feet and ankles. Neurological: nonresponsive, nonverbal Psychiatric: cannot be assessed Constitutional Vital Signs, click to edit/add: Last Vital Signs Temp 100.3 F 07/17/23 09:00 Pulse 86 07/17/23 09:36 Resp 17 07/17/23 08:57 BP 82/47 L 07/17/23 09:36 Pulse Ox 96 07/17/23 09:36 O2 Del Method Room Air 07/17/23 09:00 Course Vital Signs Vital signs: Vital Signs Pulse Rate 99 H 07/17/23 08:50 Respiratory Rate 32 H 07/17/23 08:50 Pulse Oximetry 95 07/17/23 08:50 Temperature 100.3 F 07/17/23 09:00 Pulse Rate 86 07/17/23 09:36 Respiratory Rate 17 07/17/23 08:57 Blood Pressure 82/47 L 07/17/23 09:36 Pulse Oximetry 96 07/17/23 09:36 Oxygen Delivery Method Room Air 07/17/23 09:00 Medical Decision Making MDM Narrative Medical decision making narrative: the patient presented with respiratory arrest. He did not receive CPR and did not lose his pulse at any point. He was intubated upon arrival and is being admitted to the ICU. He clearly aspirated and was given IV clindamycin and vancomycin was ordered. I spoke to Dr. Mayorga who requests also aztreonam and the patient is being admitted to the ICU. Hemoglobin five days ago was eleven and today at 7.0. Type and cross was ordered. He was also given IV Protonix. Differential Diagnosis Differential Diagnosis: aspiration, anemia, Covid Lab Data Lab results reviewed: Yes I reviewed the patient's lab results Labs: Lab Results 07/17/23 07/17/23 Range/Units 08:55 09:19 WBC 10.4 (4.0-11.0) 10^3/uL RBC 2.45 L (4.70-6.10) 10^6/uL Hgb 7.0 L (14.0-18.0) g/dL Hct 24.8 L (42.0-54.0) % MCV 101.2 H (80.0-94.0) fL MCH 28.6 (25.9-34.0) pg MCHC 28.2 L (29.9-35.2) g/dL RDW 15.2 H (11.0-15.0) % Plt Count 236 (150-450) 10^3/uL MPV 9.5 (9.5-13.5) fL Neut % (Auto) 55.4 (43.0-75.0) % Lymph % (Auto) 30.0 (20.5-60.0) % [place] % (Auto) 8.9 (1.7-12.0) % Eos % (Auto) 4.3 (0.9-7.0) % Baso % (Auto) 0.7 (0.2-2.0) % Neut # (Auto) 5.8 (1.4-6.5) 10^3/uL Lymph # (Auto) 3.1 (1.2-3.8) 10^3/uL [place] # (Auto) 0.9 H (0.3-0.8) 10^3/uL Eos # (Auto) 0.5 (0.0-0.7) 10^3/uL Baso # (Auto) 0.1 (0.0-0.1) 10^3/uL Abs Immat Gran (auto) 0.07 H (0.00-0.03) 10^3/uL Imm/Tot Granulo (auto) 0.7 H (0.0-0.5) % Puncture Site Rr ABG pH 7.228 L* (7.350-7.450) ABG pCO2 66.8 H* (35.0-45.0) mmHg ABG pO2 76.1 L (80.0-100.0) mmHg ABG HCO3 27.8 H (22.0-26.0) mmol/L ABG O2 Saturation 92.6 % ABG Base Excess 0.2 (-2.0-2.0) mmol/L Ronald Test Positive (POSITIVE) Minute Volume 8.9 Vent Mode Ac/vc FiO2 50 % Tidal Volume 450 Sodium 151 H (136-145) mmol/L Potassium 3.5 (3.5-5.1) mmol/L Chloride 119 H (98-107) mmol/L Carbon Dioxide 23.8 (21.0-32.0) mmol/L Anion Gap 11.7 BUN 34.0 H (7.0-18.0) mg/dL Creatinine 0.66 L (0.70-1.30) mg/dL Est GFR ( Amer) >60 (>=60) Est GFR (Non-Af Amer) >60 (>=60) BUN/Creatinine Ratio 51.5 Glucose 180 H (74-106) mg/dL Calcium 6.2 L (8.5-10.1) mg/dL Troponin I High Sens 77.3 H* (4.0-76.1) pg/mL SARS-CoV-2 (PCR) Negative (NEGATIVE) Imaging Data Chest x-ray: Radiologist's impression: Procedure: XR chest 1V FRONTAL CHEST; 07/17/2023 8:59 AM EST Clinical History:ET tube advanced, check placement Comparison: Several minutes earlier on the same day . AP portable upright film. Interval advancement of ET tube. This tip projects are over the trachea at the level of thoracic inlet. IMPRESSION: 1. As above. Electronically authenticated by: RIC WANG Date: 07/17/2023 09:39 Procedure: XR chest 1V FRONTAL CHEST; 07/17/2023 8:55 AM EST Clinical History:postintubation Comparison: 02/20/2023 . AP supine view. Some rotation to the right. ET tube projects over the trachea approximately 2.5 cm superior to the level of the thoracic inlet. No apparent change osseous structures. No change cardiac and mediastinal silhouettes are nacho allowing for differences in projection. No failure pattern. No pleural effusion. Mild increased markings at the bases, left greater than right. IMPRESSION: 1. Interval ET tube placement. The tip is too high. 2. Increased markings at the bases, left greater than right, are nonspecific. Electronically authenticated by: RIC WANG Date: 07/17/2023 09:40 ECG Data Attestation: I personally reviewed and interpreted this ECG as follows: (EKG on my interpretation shows sinus rhythm without acute change) Discharge Plan Discharge Chief Complaint: Cardiac Arrest/CPR Clinical Impression: Respiratory arrest, Aspiration pneumonia Patient Disposition: Admitted As Inpatient Time of Disposition Decision: 09:52 Condition: Critical Prescriptions / Home Meds: No Action clonidine HCl 0.1 mg tablet 0.1 mg PO BID aspirin 81 mg tablet,delayed release (DR/EC) 81 mg PO DAILY baclofen 10 mg tablet 10 mg PO TID amlodipine 10 mg tablet 10 mg PO DAILY gabapentin 300 mg capsule 600 mg PO BID divalproex 125 mg capsule, delayed rel sprinkle 125 mg PO TID gabapentin 600 mg tablet quetiapine 25 mg tablet 75 mg PO BEDTIME tamsulosin 0.4 mg capsule 0.4 mg PO BEDTIME Santyl 250 unit/gram ointment TOPICAL ondansetron 4 mg tablet,disintegrating 4 mg PO Q6H PRN (Reason: nausea and vomiting) quetiapine 50 mg tablet 75 mg PO BEDTIME acetaminophen [Acetaminophen Extra Strength] 650 mg PO .every 4 hours PRN (Reason: pain) Rx Instructions: 1000mg every 4 hours as needed water for irrigation, sterile Solution 30 ml G-tube TID 30 Days Qty: 6000 0RF sulfamethoxazole-trimethoprim 200-40 mg/5 mL Suspension 20 ml G-tube BID 21 Days Qty: 840 0RF Ensure Original 0.04-1.05 gram-kcal/mL Liquid 30 ea feeding tube CONT Qty: 5688 0RF Rx Instructions: 30cc/hour cont feeds - advance per physician discretion Stand Alone Forms: Portal Instructions Referrals: ADELINA NIXON [Primary Care Provider] - 1 week Procedures ED Procedure Instructions Procedures Procedures: Upon arrival I made the decision to intubate the airway because of his severe respiratory distress. He was given 20 mg of IV etomidate and with direct laryngoscopy a very large somewhat dried mucus was visible just outside of the cords. Ultimately I was able to remove [facility] and some other secretions were suctioned out as well. The patient was then intubated with 7.0 ET tube with visualization of the tube passing between the cords. O2 sat came up. The ET tube was suctioned and dark brown likely bloody liquid was suctioned out. Immediately post intubation x-ray showed the ET tube to be too high so it was advanced another x-ray was taken.
[2023-07-17 09:20] LABS: Anion Gap 11.7; BUN Creatinine Ratio 51.5; Calcium 6.2 mg/dL (8.5-10.1); Carbon Dioxide 23.8 mmol/L (21.0-32.0); Chloride 119 mmol/L (98-107); Estimated GFR (African America >60 (>=60); Estimated GFR (Non-African Ame >60 (>=60); Glucose 180 mg/dL (74-106); Potassium 3.5 mmol/L (3.5-5.1); SARS-CoV-2 Ag NEGATIVE (NEGATIVE); Sodium 151 mmol/L (136-145)
[2023-07-17 09:25] LABS: Allen Test POSITIVE (POSITIVE); Base Excess ABG 0.2 mmol/L (-2.0-2.0); HCO3 ABG 27.8 mmol/L (22.0-26.0); Oxygen Saturation ABG 92.6 %; PO2 ABG 76.1 mmHg (80.0-100.0)
[2023-07-17 09:26] LABS: Fractionated Inspired Oxygen 50 %; Minute Volume 8.9; O2 Mode VENT; Puncture Site RR; Rate 16; Tidal Volume 450; Vent Mode AC/VC
[2023-07-17 09:27] LABS: ABG PCO2 66.8 mmHg (35.0-45.0); pH ABG 7.228 (7.350-7.450)
[2023-07-17 09:29] LABS: Troponin I High Sensitivity 77.3 pg/mL (4.0-76.1)
[2023-07-17] MEDS: DIAZEPAM 10 MG/2 ML SYRINGE 5 MG IV ×3 (09:40→10:00)
[2023-07-17] MEDS: CLINDAMYCIN PHOSPHATE/D5W 900 MG/50 ML PIGGYBACK 100 MG IV (09:41)
[2023-07-17] MEDS: ETOMIDATE 20 MG/10 ML VIAL IVP ×2 (09:41)
[2023-07-17] MEDS: PANTOPRAZOLE SODIUM 40 MG VIAL IV ×2 (09:42→21:07)
--- NOTE | 2023-07-17 10:04 | PC.NURSE ---
THIS NURSE CONTIINUES TO PROVIDE ONE ON ONE CARE SUCTIONING INLINE AND ORALLY DUE TO INCREASE IN COFFEEE GROUND EMESIS 20 G IV INTIATED IN RT WRIST AREA 5MG OV VAILIUM GIVEN AT 1000 PER DOGLESBEE RN PT SPO2 79/55 HR 81 SPO2 96
--- NOTE | 2023-07-17 10:19 | PC.NURSE ---
RESP AT BEDISDE PT SUCTIONED FOR LARGE AMT OF COPIOUS SECRETIONS PT 1ST UPRBC INITIATED 98% PER VENT SETTINGS
--- NOTE | 2023-07-17 10:21 | PC.NURSE ---
UA OBTAINED AND SENT TO LAB
[2023-07-17 10:48] LABS: Anion Gap 9.7; BUN Creatinine Ratio 42.6; Calcium 8.9 mg/dL (8.5-10.1); Carbon Dioxide 27.8 mmol/L (21.0-32.0); Chloride 112 mmol/L (98-107); Estimated GFR (African America >60 (>=60); Estimated GFR (Non-African Ame >60 (>=60); Glucose 169 mg/dL (74-106); Potassium 4.5 mmol/L (3.5-5.1); Sodium 145 mmol/L (136-145)
[2023-07-17 10:51] LABS: Troponin I High Sensitivity 121.8 pg/mL (4.0-76.1)
[2023-07-17] MEDS: 0.9 % SODIUM CHLORIDE 1,000 ML 1000 ML IV ×2 (11:04→11:11)
[2023-07-17] MEDS: MIDAZOLAM HCL 100 MG in 0.9 % SODIUM CHLORIDE 80 ML IV (11:10)
[2023-07-17 12:34] LABS: Allen Test POSITIVE (POSITIVE); Base Excess ABG -1.8 mmol/L (-2.0-2.0); Fractionated Inspired Oxygen 60 %; HCO3 ABG 25.6 mmol/L (22.0-26.0); O2 Mode VENT; Oxygen Saturation ABG 99.1 %; Puncture Site RR
[2023-07-17 12:35] LABS: Minute Volume 8.71; Rate 12; Tidal Volume 600; Vent Mode AC/VC
[2023-07-17] MEDS: IPRATROPIUM/ALBUTEROL SULFATE 3 ML AMPUL.NEB IH ×4 (12:35→23:22)
[2023-07-17 12:36] LABS: ABG PCO2 59.6 mmHg (35.0-45.0); pH ABG 7.241 (7.350-7.450)
--- NOTE | 2023-07-17 14:07 | PM.HP ---
H&P: HPI History of Present Illness Chief complaint: resp failure Narrative: 73 y o male, residential resident, quariplegic, was brought over when he was found unresponsive in residential with his pulse Ox in the 50s, with persistent hypoxia on NRB and respiratrory distress for which he was intubated in ED. ED provider mentioned that he suctioned large amount of thick mucus, possible aspirated food particles when he intubated him. He was also noted to have large coffee ground emesis/material on resp suction. Patient seen in ICU, he is currently intubated, nodding and respondings to questions. Hx obtained from review of chart, patient unable to provide any information Review of Systems ROS Status of ROS unobtainable due to endotracheal tube and unobtainable due to mental status PFSH [facility] Medical History (Updated 07/17/23 @ 14:21 by Shaikh Tierra MD) SVT (supraventricular tachycardia) ?I47.1 - Supraventricular tachycardia (ICD-10) Seizure disorder ?G40.909 - Epilepsy, unspecified, not intractable, without status epilepticus (ICD-10) Respiratory failure with hypoxia ?J96.91 - Respiratory failure, unspecified with hypoxia (ICD-10) Sepsis ?A41.9 - Sepsis, unspecified organism (ICD-10) Quadriplegia, post-traumatic ?G82.50 - Quadriplegia, unspecified (ICD-10) ?S14.109S - Unspecified injury at unspecified level of cervical spinal cord, sequela (ICD-10) Metabolic encephalopathy ?G93.41 - Metabolic encephalopathy (ICD-10) Cognitive communication deficit ?R41.841 - Cognitive communication deficit (ICD-10) UTI (urinary tract infection) ?N39.0 - Urinary tract infection, site not specified (ICD-10) Traumatic brain injury ?S06.9XAA - Unspecified intracranial injury with loss of consciousness status unknown, initial encounter (ICD-10) Muscle weakness ?M62.81 - Muscle weakness (generalized) (ICD-10) Hyperlipidemia ?E78.5 - Hyperlipidemia, unspecified (ICD-10) Hypertension ?I10 - Essential (primary) hypertension (ICD-10) Dementia ?F03.90 - Unspecified dementia, unspecified severity, without behavioral disturbance, psychotic disturbance, mood disturbance, and anxiety (ICD-10) COPD (chronic obstructive pulmonary disease) ?J44.9 - Chronic obstructive pulmonary disease, unspecified (ICD-10) Benign prostate hyperplasia ?N40.0 - Benign prostatic hyperplasia without lower urinary tract symptoms (ICD-10) Anxiety ?F41.9 - Anxiety disorder, unspecified (ICD-10) Acute kidney failure ?N17.9 - Acute kidney failure, unspecified (ICD-10) Type 2 diabetes mellitus ?E11.9 - Type 2 diabetes mellitus without complications (ICD-10) Hypothyroidism ?E03.9 - Hypothyroidism, unspecified (ICD-10) GERD (gastroesophageal reflux disease) ?K21.9 - Gastro-esophageal reflux disease without esophagitis (ICD-10) Difficulty walking ?R26.2 - Difficulty in walking, not elsewhere classified (ICD-10) Psychotic disorder ?F29 - Unspecified psychosis not due to a substance or known physiological condition (ICD-10) Congestive heart failure ?I50.9 - Heart failure, unspecified (ICD-10) Abnormal posture ?R29.3 - Abnormal posture (ICD-10) Acute respiratory distress ?R06.03 - Acute respiratory distress (ICD-10) Aspiration pneumonia ?J69.0 - Pneumonitis due to inhalation of food and vomit (ICD-10) Febrile ?R50.9 - Fever, unspecified (ICD-10) Episode of unresponsiveness ?R40.4 - Transient alteration of awareness (ICD-10) Surgical History (Updated 02/15/23 @ 12:16 by Shaikh Tierra MD) H/O craniotomy ?Z98.890 - Other specified postprocedural states (ICD-10) Social History (Updated 02/15/23 @ 12:17 by Shaikh Tierra MD) Within the past year, how often did you have a drink containing alcohol: never Score interpretation: A score less than 4 is consistent with normal alcohol consumption. Smoking status: Never smoker Non-prescribed substance use: denies use Meds Home Medications and Allergies Home Medications Medication Instructions Recorded Confirmed Type acetaminophen 650 mg PO .every 4 hours PRN pain 02/14/23 02/14/23 History amlodipine 10 mg tablet 10 mg PO DAILY 02/14/23 02/14/23 History aspirin 81 mg tablet,delayed 81 mg PO DAILY 02/14/23 02/14/23 History release baclofen 10 mg tablet 10 mg PO TID 02/14/23 02/14/23 History clonidine HCl 0.1 mg tablet 0.1 mg PO BID 02/14/23 02/14/23 History collagenase clostridium histo. 250 topical 02/14/23 History unit/gram topical ointment (Santyl) divalproex 125 mg capsule,delayed 125 mg PO TID 02/14/23 02/14/23 History release sprinkle gabapentin 300 mg capsule 600 mg PO BID 02/14/23 02/14/23 History gabapentin 600 mg tablet mg 02/14/23 History ondansetron 4 mg disintegrating 4 mg PO Q6H PRN nausea and vomiting 02/14/23 02/14/23 History tablet quetiapine 25 mg tablet 75 mg PO BEDTIME 02/14/23 02/14/23 History quetiapine 50 mg tablet 75 mg PO BEDTIME 02/14/23 02/14/23 History tamsulosin 0.4 mg capsule 0.4 mg PO BEDTIME 02/14/23 02/14/23 History food supplemt, lactose-reduced 30 ea feeding tube CONT #5,688 mL 02/22/23 Rx 0.04 gram-1.05 kcal/mL oral liquid (Ensure Original) sulfamethoxazole 200 20 ml G-tube BID 21 days #840 mL 02/22/23 Rx mg-trimethoprim 40 mg/5 mL oral suspension water for irrigation, sterile 30 ml G-tube TID 30 days #6,000 mL 02/22/23 Rx Allergies Allergy/AdvReac Type Severity Reaction Status Date / Time Penicillins Allergy Severe Verified 02/14/23 18:30 propoxyphene [From Darvon] Allergy Severe Unknown Verified 02/14/23 18:30 Exam Constitutional Vital Signs, click to edit/add: Last Vital Signs Temp 98.2 F 07/17/23 13:24 Pulse 73 07/17/23 13:24 Resp 16 07/17/23 13:24 BP 111/71 07/17/23 13:24 Pulse Ox 98 07/17/23 13:24 O2 Del Method Mechanical Ventilator 07/17/23 12:41 FiO2 60 07/17/23 12:41 Documenting provider has reviewed patient's vital signs: yes General appearance: ill appearing and frail appearing Other: intubated HENMT Common normals: normocephalic and head/scalp atraumatic Respiratory Common normals: normal respiratory effort Other: Coarse breath sounds, no wheezing. On Ventilator. Cardio Common normals: regular rhythm, S1 normal heart sound and S2 normal heart sound GI Common normals: Normal to inspection, nondistended, normoactive bowel sounds present Inspection: other (PEG in place) Back & Pelvis Common normals: no CVA tenderness Extremity Other: spastic paresis, quadriplegic. Neuro Other: spastic quadriplegia, awake while on vent and propofol. Responding to questions Results Labs Labs: Short CBC 07/17/23 Range/Units 08:55 WBC 10.4 (4.0-11.0) 10^3/uL Hgb 7.0 L (14.0-18.0) g/dL Hct 24.8 L (42.0-54.0) % Plt Count 236 (150-450) 10^3/uL BMP 07/17/23 07/17/23 08:55 10:10 Sodium 151 H 145 Potassium 3.5 4.5 Chloride 119 H 112 H Carbon Dioxide 23.8 27.8 BUN 34.0 H 46.0 H Creatinine 0.66 L 1.08 Glucose 180 H 169 H Calcium 6.2 L 8.9 ABG ABG results: 07/17/23 07/17/23 09:19 12:24 ABG pH 7.228 L* 7.241 L* ABG pCO2 66.8 H* 59.6 H* ABG pO2 76.1 L 132.0 H ABG HCO3 27.8 H 25.6 ABG O2 Saturation 92.6 99.1 ABG Base Excess 0.2 -1.8 Assessment and Plan Assessment and Plan (1) Aspiration pneumonia: Assessment and Plan: Aspiration pneumonia resulting in resp failure with hypoxia. Now on Ventilator. Patient started on Vancomycin/aztreonam Most recent hospital admission in February, recurrent aspiration PNA, alf resident, will need broad spectrum abx,. Qualifiers: Aspiration pneumonia type: due to gastric secretions Laterality: unspecified laterality Lung location: unspecified part of lung Qualified Code(s): J69.0 - Pneumonitis due to inhalation of food and vomit (2) GI bleed: Assessment and Plan: UGIB, large coffee ground emesis/fluid aspiration. Hb 7 --> ordered 2 units PRBC Protonix 40 q12, monitor H&H Surgery consulted (3) Respiratory failure with hypoxia: Assessment and Plan: On ventilator now. ABG indicated resp acidosis, hypercapnia. Increased RR to 16. f/u ABG in one hour Due to asp PNA. On vanc/azotreonam Qualifiers: Chronicity: acute Qualified Code(s): J96.01 - Acute respiratory failure with hypoxia (4) Sepsis: Assessment and Plan: Received 3 L IVF, combined septic/hypovolemic shock due to Aspiration PNA, GI bleeding C/w close hemodynamic monitoring. On LR at 15 M/HR Monitor UO. Qualifiers: Sepsis type: sepsis due to unspecified organism Sepsis acute organ dysfunction status: with acute organ dysfunction Severe sepsis acute organ dysfunction type: acute respiratory failure Acute respiratory failure type: with hypoxia Severe sepsis shock status: with septic shock Qualified Code(s): A41.9 - Sepsis, unspecified organism; R65.21 - Severe sepsis with septic shock; J96.01 - Acute respiratory failure with hypoxia (5) Traumatic brain injury: Assessment and Plan: spastic quadriplegic from it. Correction residential resident. Qualifiers: Encounter type: subsequent encounter (6) COPD (chronic obstructive pulmonary disease): Assessment and Plan: No active wheezing. Avoid steroids as presenting with GIB. C/w duonebs. (7) Type 2 diabetes mellitus: Assessment and Plan: SSI while in patient (8) Quadriplegia, post-traumatic: Assessment and Plan: Precautions to prevent pressure ulcers. (9) Hypertension: Assessment and Plan: hypotensive with sepsis. Hold meds. Plan Critially ill with septic shock, resp failure, requiring mechanical ventilation. Patient also with GIB requiring blood tx. At high risk of morbidity, mortality and poor clinical prognosis. Critical care time spent over 50 minutes in his evaluation, chart review, clinical decision making, co ordination of care. Urinary Catheter Management Urinary Catheter Management Urethral: Cath placed during this visit: yes Urethral indwelling: Yes Reason for continuing: ICU pt on diuretics Insertion date: 07/17/23
--- NOTE | 2023-07-17 14:31 | RESP.RT ---
RR increased from 12 to 16, FiO2 decreased from 50% to 40%.
[2023-07-17] MEDS: LACTATED RINGER'S SOLUTION 1,000 ML 125 ML IV ×2 (14:44→23:55)
[2023-07-17 15:46] LABS: ABG PCO2 43.9 mmHg (35.0-45.0); PO2 ABG 61.3 mmHg (80.0-100.0); pH ABG 7.364 (7.350-7.450)
[2023-07-17 15:47] LABS: Glucometer 95 mg/dL (74-106)
[2023-07-17 15:47] LABS: Allen Test POSITIVE (POSITIVE); Base Excess ABG -0.4 mmol/L (-2.0-2.0); Oxygen Saturation ABG 93.3 %
[2023-07-17 15:48] LABS: Fractionated Inspired Oxygen 40 %; Minute Volume 15; O2 Mode VENT; Puncture Site LR; Rate 16; Tidal Volume 600; Vent Mode AC/VC
[2023-07-17 16:36] LABS: Troponin I High Sensitivity 272.8 pg/mL (4.0-76.1)
[2023-07-17] MEDS: VANCOMYCIN HCL 1,000 MG in 0.9 % SODIUM CHLORIDE 250 ML 250 MG IV (21:05)
[2023-07-17] MEDS: GABAPENTIN 300 MG CAPSULE 600 MG PO (21:07)
[2023-07-17] MEDS: ACETAMINOPHEN 325 MG TABLET 650 MG PO (21:07)
[2023-07-17] MEDS: QUETIAPINE FUMARATE 25 MG TABLET 75 MG PO (21:08)
[2023-07-17] MEDS: DIVALPROEX SODIUM 125 MG CAP.DR.SPR PO (21:09)
[2023-07-17 21:19] LABS: Glucometer 104 mg/dL (74-106)
[2023-07-17 21:29] LABS: Hematocrit 40.1 % (42.0-54.0)
[2023-07-17 21:43] LABS: Troponin I High Sensitivity 389.3 pg/mL (4.0-76.1)
[2023-07-17] MEDS: LACTATED RINGER'S SOLUTION 1,000 ML 1000 ML IV (23:05)
--- NOTE | 2023-07-17 23:22 | RESP.RT ---
Decreased Fi02 down from 40% to 30%
[2023-07-18] VITALS (121 sets, daily range): BP systolic 77–143; BP diastolic 44–76; PULSE 75–126; RESP 16–34; TEMP 36.8–37.2; O2SAT 23–100
[2023-07-18] MEDS: IPRATROPIUM/ALBUTEROL SULFATE 3 ML AMPUL.NEB IH ×6 (03:49→23:31)
--- NOTE | 2023-07-18 05:00 | XR_ITS ---
The [address] [address] Patient Name: SHELBY VALERIO MRN: [id number] date: 1950 Sex: M Assigned Patient Location: ICU Current Patient Location: ICU Accession/Order Number: [id number] Exam Date: 07/18/2023 04:15 Report Date: 07/18/2023 06:18 At the request of: SHAIKH BRAD Procedure: XR chest 1V EXAM: XR chest 1V HISTORY: Aspiration pneumonia. COMPARISON: Portable chest radiograph dated 07/17/2023. TECHNIQUE: AP erect portable chest radiograph performed. FINDINGS: The distal tip of the endotracheal tube is 7 cm above the level of the rebekah. The heart size is normal. There is mild atheromatous calcification at the aortic arch. Previously seen patchy density at the left lung base has resolved. There is no consolidation, infiltrate, pleural effusion or pulmonary vascular congestion on the current examination. There is no pneumothorax. The bony structures are osteopenic. There is no acute osseous abnormality. XR/XR chest 1V IMPRESSION: The distal tip of the endotracheal tube is 7 cm above the level of the rebekah. Resolved patchy density at the left lung base. There is no consolidation or infiltrate on the current examination. Electronically authenticated by: ANKIT OVERTON Date: 07/18/2023 06:18
[2023-07-18 05:10] LABS: ABG PCO2 40.9 mmHg (35.0-45.0); Allen Test POSITIVE (POSITIVE); Base Excess ABG 1.1 mmol/L (-2.0-2.0); HCO3 ABG 25.7 mmol/L (22.0-26.0); O2 Mode VENT; Oxygen Saturation ABG 92.9 %; PO2 ABG 62.1 mmHg (80.0-100.0); pH ABG 7.407 (7.350-7.450)
[2023-07-18 05:11] LABS: Fractionated Inspired Oxygen 30 %; Puncture Site R RAD; Rate 16; Tidal Volume 600; Vent Mode ACVC
[2023-07-18 05:20] LABS: Basophils Absolute Auto 0.1 10^3/uL (0.0-0.1); Basophils Percent Auto 0.6 % (0.2-2.0); Eosinophils Absolute Auto 0.5 10^3/uL (0.0-0.7); Eosinophils Percent Auto 1.9 % (0.9-7.0); Hematocrit 40.8 % (42.0-54.0); Hemoglobin 12.6 g/dL (14.0-18.0); Immature Granulocytes Abs Auto 0.16 10^3/uL (0.00-0.03); Immature Granulocytes Pct Auto 0.6 % (0.0-0.5); Lymphocytes Absolute Auto 4.5 10^3/uL (1.2-3.8); Lymphocytes Percent Auto 18.1 % (20.5-60.0); Mean Corpuscular HGB Conc 30.9 g/dL (29.9-35.2); Mean Corpuscular Hemoglobin 28.6 pg (25.9-34.0); Mean Corpuscular Volume 92.5 fL (80.0-94.0); Mean Platelet Volume 9.8 fL (9.5-13.5); Monocytes Absolute Auto 2.2 10^3/uL (0.3-0.8); Monocytes Percent Auto 8.7 % (1.7-12.0); Neutrophils Absolute Auto 17.6 10^3/uL (1.4-6.5); Neutrophils Percent Auto 70.1 % (43.0-75.0); Platelet Count 329 10^3/uL (150-450); Red Blood Count 4.41 10^6/uL (4.70-6.10); Red Cell Distribution Width 16.8 % (11.0-15.0); White Blood Count 25.1 10^3/uL (4.0-11.0)
[2023-07-18 05:35] LABS: Alanine Aminotransferase 40 U/L (16-63); Albumin Globulin Ratio 0.4; Albumin Level 1.9 g/dL (3.4-5.0); Alkaline Phosphatase 107 U/L (46-116); Aspartate Amino Transferase 33 U/L (15-37); Bilirubin Total 0.6 mg/dL (0.2-1.0); Calcium 9.7 mg/dL (8.5-10.1); Carbon Dioxide 23.9 mmol/L (21.0-32.0); Chloride 111 mmol/L (98-107); Estimated GFR (African America >60 (>=60); Estimated GFR (Non-African Ame >60 (>=60); Glucose 84 mg/dL (74-106); Potassium 3.9 mmol/L (3.5-5.1); Sodium 142 mmol/L (136-145); Total Protein 6.9 g/dL (6.4-8.2)
[2023-07-18] MEDS: DIVALPROEX SODIUM 125 MG CAP.DR.SPR PO ×3 (05:51→21:00)
[2023-07-18 05:54] LABS: Glucometer 106 mg/dL (74-106)
[2023-07-18] MEDS: LACTATED RINGER'S SOLUTION 1,000 ML 125 ML IV (07:33)
[2023-07-18 08:20] LABS: Troponin I High Sensitivity 435.7 pg/mL (4.0-76.1)
[2023-07-18] MEDS: PANTOPRAZOLE SODIUM 40 MG VIAL IV ×2 (09:09→20:54)
[2023-07-18] MEDS: GABAPENTIN 300 MG CAPSULE 600 MG PO ×2 (09:11→20:54)
[2023-07-18] MEDS: AZTREONAM 2,000 MG in 0.9 % SODIUM CHLORIDE 100 ML 100 MG IV ×2 (09:12→17:51)
--- NOTE | 2023-07-18 09:36 | CM.NOTE ---
Pt is residential at [facility], will send updates.
[2023-07-18] MEDS: VANCOMYCIN HCL 1,000 MG in 0.9 % SODIUM CHLORIDE 250 ML 250 MG IV ×2 (10:11→21:21)
--- NOTE | 2023-07-18 10:37 | CM.NOTE ---
Rounds made with Dr. Mayorga. Awaiting surgery consult recommendations. Discussed trying to wean vent today. No plan for Discharge today.
--- NOTE | 2023-07-18 11:14 | P.IMPN_ITS ---
Progress Note: A&P Assessment and Plan (1) Aspiration pneumonia: Assessment and Plan: On IV vancomycin and Aztreonam. F/u sputum and blood culture. On ventilator, acceptable gas exchange. Wean/decrease PEEP down to 5. Possible extubation today or tomorrow. Leukocytosis worsened today but patient appears to be improving clinically. Qualifiers: Aspiration pneumonia type: due to gastric secretions Laterality: unspecified laterality Lung location: unspecified part of lung Qualified Code(s): J69.0 - Pneumonitis due to inhalation of food and vomit (2) GI bleed: Assessment and Plan: Hb stable. Required 2 unit PRBC. on Protonix 40 q12. (3) Elevated troponin I level: Assessment and Plan: Continues to trend upward. Likely t2 demand ischemia Trend for now. Can't anticoagulate due to GIB. 2D ECHO ordered. (4) Respiratory failure with hypoxia: Assessment and Plan: On ventilator. Acceptable gas exchange. Decrease PEEP down to 5. Possible extubation today or tomorrow. Qualifiers: Chronicity: acute Qualified Code(s): J96.01 - Acute respiratory failure with hypoxia (5) Sepsis: Assessment and Plan: Stable hemodynamics now. BP stable. Good UO Decrease maintenance IVF to 75 /hr Leukocytosis worsened today but patient appears to be improving clinically. Qualifiers: Sepsis type: sepsis due to unspecified organism Sepsis acute organ dysfunction status: with acute organ dysfunction Severe sepsis acute organ dysfunction type: acute respiratory failure Acute respiratory failure type: with hypoxia Severe sepsis shock status: with septic shock Qualified Code(s): A41.9 - Sepsis, unspecified organism; R65.21 - Severe sepsis with septic shock; J96.01 - Acute respiratory failure with hypoxia (6) Seizure disorder: Assessment and Plan: on depakote. C/w same (7) Traumatic brain injury: Assessment and Plan: quadriplegic from it. Qualifiers: Encounter type: subsequent encounter (8) COPD (chronic obstructive pulmonary disease): Assessment and Plan: No active wheezing. C/w albuterol as needed. 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 No events overnight. Hb remained stable. no overt GIB. BP re mained stable. Good UO. Exam Constitutional Vital Signs, click to edit/add: Last Vital Signs Temp 98.9 F 07/18/23 07:25 Pulse 90 07/18/23 10:29 Resp 17 07/18/23 10:29 BP 118/64 07/18/23 07:00 Pulse Ox 97 07/18/23 10:29 O2 Del Method Mechanical Ventilator 07/18/23 10:29 O2 Flow Rate 50 07/17/23 14:41 FiO2 30 07/18/23 10:29 Documenting provider has reviewed patient's vital signs: yes General appearance: ill appearing and frail appearing Other: intubated HENMT Common normals: normocephalic and head/scalp atraumatic Respiratory Common normals: normal respiratory effort Other: Coarse breath sounds, no wheezing. On Ventilator. Cardio Common normals: regular rhythm, S1 normal heart sound and S2 normal heart sound GI Common normals: Normal to inspection, nondistended, normoactive bowel sounds present Inspection: other (PEG in place) Back & Pelvis Common normals: no CVA tenderness Extremity Other: spastic paresis, quadriplegic. Neuro Other: spastic quadriplegia, awake while on vent and propofol. Responding to questions Internal Medicine - PN: Obj Da Labs Labs: Laboratory Results - last 24 hr 07/17/23 07/17/23 07/17/23 08:55 12:24 15:39 WBC RBC Hgb Hct MCV MCH MCHC RDW Plt Count MPV Neut % (Auto) Lymph % (Auto) [place] % (Auto) Eos % (Auto) Baso % (Auto) Neut # (Auto) Lymph # (Auto) [place] # (Auto) Eos # (Auto) Baso # (Auto) Abs Immat Gran (auto) Imm/Tot Granulo (auto) Puncture Site Rr Lr ABG pH 7.241 L* 7.364 ABG pCO2 59.6 H* 43.9 ABG pO2 132.0 H 61.3 L ABG HCO3 25.6 25.0 ABG O2 Saturation 99.1 93.3 ABG Base Excess -1.8 -0.4 Ronald Test Positive Positive Minute Volume 8.71 15 Vent Mode Ac/vc Ac/vc FiO2 60 40 Tidal Volume 600 600 Sodium Potassium Chloride Carbon Dioxide Anion Gap BUN Creatinine Est GFR ( Amer) Est GFR (Non-Af Amer) BUN/Creatinine Ratio Glucose Calcium Total Bilirubin AST ALT Alkaline Phosphatase Troponin I High Sens Total Protein Albumin Globulin Albumin/Globulin Ratio POC Glucose Blood Type A Positive Antibody Screen Negative Crossmatch See Detail 07/17/23 07/17/23 07/17/23 15:42 16:05 21:15 WBC RBC Hgb 13.0 L Hct 40.1 L MCV MCH MCHC RDW Plt Count MPV Neut % (Auto) Lymph % (Auto) [place] % (Auto) Eos % (Auto) Baso % (Auto) Neut # (Auto) Lymph # (Auto) [place] # (Auto) Eos # (Auto) Baso # (Auto) Abs Immat Gran (auto) Imm/Tot Granulo (auto) Puncture Site ABG pH ABG pCO2 ABG pO2 ABG HCO3 ABG O2 Saturation ABG Base Excess Ronald Test Minute Volume Vent Mode FiO2 Tidal Volume Sodium Potassium Chloride Carbon Dioxide Anion Gap BUN Creatinine Est GFR ( Amer) Est GFR (Non-Af Amer) BUN/Creatinine Ratio Glucose Calcium Total Bilirubin AST ALT Alkaline Phosphatase Troponin I High Sens 272.8 H* 389.3 H* Total Protein Albumin Globulin Albumin/Globulin Ratio POC Glucose 95 Blood Type Antibody Screen Crossmatch 07/17/23 07/18/23 07/18/23 21:17 04:15 04:55 WBC 25.1 H RBC 4.41 L Hgb 12.6 L Hct 40.8 L MCV 92.5 MCH 28.6 MCHC 30.9 RDW 16.8 H Plt Count 329 MPV 9.8 Neut % (Auto) 70.1 Lymph % (Auto) 18.1 L [place] % (Auto) 8.7 Eos % (Auto) 1.9 Baso % (Auto) 0.6 Neut # (Auto) 17.6 H Lymph # (Auto) 4.5 H [place] # (Auto) 2.2 H Eos # (Auto) 0.5 Baso # (Auto) 0.1 Abs Immat Gran (auto) 0.16 H Imm/Tot Granulo (auto) 0.6 H Puncture Site R rad ABG pH 7.407 ABG pCO2 40.9 ABG pO2 62.1 L ABG HCO3 25.7 ABG O2 Saturation 92.9 ABG Base Excess 1.1 Ronald Test Positive Minute Volume Vent Mode Acvc FiO2 30 Tidal Volume 600 Sodium 142 Potassium 3.9 Chloride 111 H Carbon Dioxide 23.9 Anion Gap 11.0 BUN 34.0 H Creatinine 0.85 Est GFR ( Amer) >60 Est GFR (Non-Af Amer) >60 BUN/Creatinine Ratio 40.0 Glucose 84 Calcium 9.7 Total Bilirubin 0.6 AST 33 ALT 40 Alkaline Phosphatase 107 Troponin I High Sens 435.7 H* Total Protein 6.9 Albumin 1.9 L Globulin 5.0 Albumin/Globulin Ratio 0.4 POC Glucose 104 Blood Type Antibody Screen Crossmatch 07/18/23 05:53 WBC RBC Hgb Hct MCV MCH MCHC RDW Plt Count MPV Neut % (Auto) Lymph % (Auto) [place] % (Auto) Eos % (Auto) Baso % (Auto) Neut # (Auto) Lymph # (Auto) [place] # (Auto) Eos # (Auto) Baso # (Auto) Abs Immat Gran (auto) Imm/Tot Granulo (auto) Puncture Site ABG pH ABG pCO2 ABG pO2 ABG HCO3 ABG O2 Saturation ABG Base Excess Ronald Test Minute Volume Vent Mode FiO2 Tidal Volume Sodium Potassium Chloride Carbon Dioxide Anion Gap BUN Creatinine Est GFR ( Amer) Est GFR (Non-Af Amer) BUN/Creatinine Ratio Glucose Calcium Total Bilirubin AST ALT Alkaline Phosphatase Troponin I High Sens Total Protein Albumin Globulin Albumin/Globulin Ratio POC Glucose 106 Blood Type Antibody Screen Crossmatch Urinary Catheter Management Urinary Catheter Management Urethral: Cath placed during this visit: yes Urethral indwelling: Yes Reason for continuing: measure accurate output Insertion date: 07/17/23
--- NOTE | 2023-07-18 11:21 | CA_ITS ---
Patient Name Site Name SHELBY VALERIO The [facility] Account No Medical Record Number Age Sex Date Time [id number] [facility]:[id number] M 07/18/2023 11:58 At the Request Of SHAIKH BRAD ECHOCARDIOGRAM REPORT PROCEDURE: CA ECHO DOPPLER COMPLETE INDICATIONS: NSTEMI COMPARISON: None. DESCRIPTION: COMPLETE ECHOCARDIOGRAM Real-time transthoracic echocardiography with 2D, M-mode, spectral and color flow Doppler performed. QUALITY: Technical quality was limited. Due to patient condition. LEFT VENTRICLE: Normal chamber size. Proximal septal hypertrophy (sigmoid septum). Hyperdynamic systolic function. LV EF: Hyperdynamic left ventricular ejection fraction, (70-75%). DIASTOLIC: Normal diastolic function. ATRIAL SEPTUM: LEFT ATRIUM: Normal chamber size. RIGHT ATRIUM: Normal chamber size. RIGHT VENTRICLE: Normal chamber size. Normal right ventricular systolic function. TRICUSPID VALVE: Normal mobility and thickness. No stenosis with trivial regurgitation. Unable to assess right-sided pressures due to lack of measurable tricuspid regurgitation. MITRAL VALVE: Normal mobility and thickness. No evidence of mitral valve stenosis. There is no mitral annular calcification. Trivial mitral regurgitation. AORTIC VALVE: Grossly normal. No evidence of aortic stenosis. No aortic regurgitation. AORTIC ROOT: Normal diameter and appearance. PULMONIC VALVE: Grossly normal. No stenosis. No regurgitation. PERICARDIUM: No evidence of pericardial effusion. IVC: Mild dilatation. Measuring 2.2 cm with no collapse. PLEURA: CONCLUSION: 1. Hyperdynamic left ventricular systolic function. LVEF is 70 to 75%. 2. Normal right ventricular size and systolic function. 3. No significant valvular dysfunction. 4. Unable to assess right-sided pressures due to lack of measurable tricuspid regurgitation. 5. Dilated IVC with no inspiratory collapse suggestive of increased central venous pressures. Adult Echocardiography Procedure Report Left Ventricle LVEDD (3.7 - 5.6 cm): 4.53 cm LVESD (2.2 - 4.0 cm): 2.81 cm LVIVS thickness (0.6 - 1.2 cm): 1.01 cm LVPW thickness (0.5 - 1.0 cm): 0.84 cm e': 0.10 m/s E - e': 5.30 LVOT Max Gradient: 9.40 mm[Hg] LVOT Area (cm2): 1.53 m/s Peak Velocity (LVOT): 1.53 m/s Mean Velocity (LVOT): 1.03 m/s LVOT Diameter 1.69 cm Left Atrium LA Volume Index (2D A2C): 21.37 ml/m2 Left Atrium Systolic Dimension: 3.73 cm Mitral Valve MV E to A Ratio: 0.58 Mitral Valve A-Wave Peak Velocity: 0.94 m/s Mitral Valve E-Wave Peak Velocity: 0.54 m/s Right Ventricle RV Internal Diastolic Dimension: 2.77 cm Aorta AO Root Diam: 3.58 cm Aortic Valve AoV Area (Peak Beck): 2.41 cm2, 2.36 cm2 AoV Area (VTI): 2.51 cm2, 2.38 cm2 Peak Velocity(Antegrade Flow): 1.47 m/s, 1.40 m/s Peak Gradient(Antegrade Flow): 8.61 mm[Hg], 7.87 mm[Hg] Mean Velocity(Antegrade Flow): 1.08 m/s, 0.99 m/s Mean Gradient(Antegrade Flow): 5.19 mm[Hg], 4.43 mm[Hg] Velocity Time Integral: 27.43 cm, 24.60 cm Tricuspid Valve Peak Velocity (Regurgitant Flow): 1.27 m/s, 1.78 m/s Pulmonic Valve Peak Velocity: 1.11 m/s Peak Gradient: 4.92 mm[Hg] Right Atrium Right Atrium Systolic Pressure: 21.01 ml, 21.01 ml Dictated by: Dario Pedroza M.D. on 07/19/2023 at 14:48 Approved by: Dario Pedroza M.D. on 07/19/2023 at 14:53
[2023-07-18 12:03] LABS: SARS-CoV-2 NAA NOT DETECTED (NOT DETECTE)
--- NOTE | 2023-07-18 12:30 | PM.GSCN ---
History of Present Illness Consult details Consult date: 07/18/23 Reason for consult: other (coffee ground emesis) Requesting physician: Brian Mayer Narrative: Arturo Yanez is a 73-year-old male who resides at the [facility] and presented to the Emergency Department with coffee-ground emesis and possible aspiration pneumonia. He was intubated by the Emergency Department physician and is currently on a ventilator. I was asked to assess due to the coffee-ground emesis and anemia. His hemoglobin had dropped from approximately 11 g earlier this year in January he had aspiration pneumonia and was hospitalized for that. His hemoglobin was down to 7 g. Patient is unable to give any history. All history is obtained from nursing. He has received two units of packed red blood cells since admission to the hospital his hemoglobin is up-to-date well grams. No melena or hematochezia. Hemodynamically he is stable. There is no history of ulcer disease. Review of Systems ROS Narrative unobtainable; patient is a quadriplegic and has a PEG tube in place which was placed back in January [address] Padilla and resides at the [facility]. [facility] Medical History (Updated 07/18/23 @ 12:35 by Edmund Singh MD) SVT (supraventricular tachycardia) ?I47.1 - Supraventricular tachycardia (ICD-10) Seizure disorder ?G40.909 - Epilepsy, unspecified, not intractable, without status epilepticus (ICD-10) Respiratory failure with hypoxia ?J96.91 - Respiratory failure, unspecified with hypoxia (ICD-10) Sepsis ?A41.9 - Sepsis, unspecified organism (ICD-10) Quadriplegia, post-traumatic ?G82.50 - Quadriplegia, unspecified (ICD-10) ?S14.109S - Unspecified injury at unspecified level of cervical spinal cord, sequela (ICD-10) Metabolic encephalopathy ?G93.41 - Metabolic encephalopathy (ICD-10) Cognitive communication deficit ?R41.841 - Cognitive communication deficit (ICD-10) UTI (urinary tract infection) ?N39.0 - Urinary tract infection, site not specified (ICD-10) Traumatic brain injury ?S06.9XAA - Unspecified intracranial injury with loss of consciousness status unknown, initial encounter (ICD-10) Muscle weakness ?M62.81 - Muscle weakness (generalized) (ICD-10) Hyperlipidemia ?E78.5 - Hyperlipidemia, unspecified (ICD-10) Hypertension ?I10 - Essential (primary) hypertension (ICD-10) Dementia ?F03.90 - Unspecified dementia, unspecified severity, without behavioral disturbance, psychotic disturbance, mood disturbance, and anxiety (ICD-10) COPD (chronic obstructive pulmonary disease) ?J44.9 - Chronic obstructive pulmonary disease, unspecified (ICD-10) Benign prostate hyperplasia ?N40.0 - Benign prostatic hyperplasia without lower urinary tract symptoms (ICD-10) Anxiety ?F41.9 - Anxiety disorder, unspecified (ICD-10) Acute kidney failure ?N17.9 - Acute kidney failure, unspecified (ICD-10) Type 2 diabetes mellitus ?E11.9 - Type 2 diabetes mellitus without complications (ICD-10) Hypothyroidism ?E03.9 - Hypothyroidism, unspecified (ICD-10) GERD (gastroesophageal reflux disease) ?K21.9 - Gastro-esophageal reflux disease without esophagitis (ICD-10) Difficulty walking ?R26.2 - Difficulty in walking, not elsewhere classified (ICD-10) Psychotic disorder ?F29 - Unspecified psychosis not due to a substance or known physiological condition (ICD-10) Congestive heart failure ?I50.9 - Heart failure, unspecified (ICD-10) Abnormal posture ?R29.3 - Abnormal posture (ICD-10) Acute respiratory distress ?R06.03 - Acute respiratory distress (ICD-10) Aspiration pneumonia ?J69.0 - Pneumonitis due to inhalation of food and vomit (ICD-10) Febrile ?R50.9 - Fever, unspecified (ICD-10) Episode of unresponsiveness ?R40.4 - Transient alteration of awareness (ICD-10) Surgical History (Updated 02/15/23 @ 12:16 by Shaikh Tierra MD) H/O craniotomy ?Z98.890 - Other specified postprocedural states (ICD-10) Social History Within the past year, how often did you have a drink containing alcohol: never Score interpretation: A score less than 4 is consistent with normal alcohol consumption. Smoking status: Never smoker Non-prescribed substance use: denies use Meds Home Medications and Allergies Home Medications Medication Instructions Recorded Confirmed Type acetaminophen 1,000 mg PO .every 4 hours PRN 02/14/23 07/17/23 History pain, severe amlodipine 10 mg tablet 10 mg PO DAILY 02/14/23 07/17/23 History aspirin 81 mg tablet,delayed 81 mg PO DAILY 02/14/23 07/17/23 History release baclofen 10 mg tablet 10 mg PO TID 02/14/23 07/17/23 History clonidine HCl 0.1 mg tablet 0.1 mg PO BID 02/14/23 07/17/23 History divalproex 125 mg capsule,delayed 125 mg PO TID 02/14/23 07/17/23 History release sprinkle albuterol sulfate 2.5 mg/3 mL 2.5 mg inhalation Q2H PRN 07/17/23 07/17/23 History (0.083 %) solution for nebulization shortness of breath or wheezing doxazosin 1 mg tablet 1 mg PO .QD 07/17/23 07/17/23 History food supplemt, lactose-reduced 30 ea feeding tube CONT 07/17/23 07/17/23 History 0.04 gram-1.05 kcal/mL oral liquid (Ensure Original) guaifenesin 600 mg tablet, 600 mg PO Q12H PRN congestion 07/17/23 07/17/23 History extended release 12 hr (Mucinex) valproic acid (as sodium salt) 250 375 mg PO .QD 07/17/23 07/17/23 History mg/5 mL oral solution Allergies Allergy/AdvReac Type Severity Reaction Status Date / Time Penicillins Allergy Severe Verified 02/14/23 18:30 propoxyphene [From Darvon] Allergy Severe Unknown Verified 02/14/23 18:30 Exam Constitutional Vital Signs, click to edit/add: Last Vital Signs Temp 98.9 F 07/18/23 07:25 Pulse 90 07/18/23 10:29 Resp 17 07/18/23 10:29 BP 118/64 07/18/23 07:00 Pulse Ox 97 07/18/23 10:29 O2 Del Method Mechanical Ventilator 07/18/23 10:29 O2 Flow Rate 50 07/17/23 14:41 FiO2 30 07/18/23 10:29 Documenting provider has reviewed patient's vital signs: yes Common normals: no apparent distress, average body habitus and well nourished Exam limitations: other limitations (patient currently intubated and on a ventilator; unable to give any history) Other: intubated on ventilator GI Common normals: Normal to inspection, nondistended, normoactive bowel sounds present Palpation: firm Percussion: dullness to percussion Rectal Exam - Male: normal sphincter tone Other: and stool on the gloved examining finger Neuro Sensorium/orientation: awake Results Labs Labs: Abnormal lab results 07/17/23 07/17/23 07/17/23 Range/Units 08:55 12:24 15:39 WBC (4.0-11.0) 10^3/uL RBC (4.70-6.10) 10^6/uL Hgb (14.0-18.0) g/dL Hct (42.0-54.0) % RDW (11.0-15.0) % Lymph % (Auto) (20.5-60.0) % Neut # (Auto) (1.4-6.5) 10^3/uL Lymph # (Auto) (1.2-3.8) 10^3/uL [place] # (Auto) (0.3-0.8) 10^3/uL Abs Immat Gran (auto) (0.00-0.03) 10^3/uL Imm/Tot Granulo (auto) (0.0-0.5) % ABG pH 7.241 L* (7.350-7.450) ABG pCO2 59.6 H* (35.0-45.0) mmHg ABG pO2 132.0 H 61.3 L (80.0-100.0) mmHg Chloride (98-107) mmol/L BUN (7.0-18.0) mg/dL Troponin I High Sens (4.0-76.1) pg/mL Albumin (3.4-5.0) g/dL Crossmatch See Detail 07/17/23 07/17/23 07/18/23 Range/Units 16:05 21:15 04:15 WBC 25.1 H (4.0-11.0) 10^3/uL RBC 4.41 L (4.70-6.10) 10^6/uL Hgb 13.0 L 12.6 L (14.0-18.0) g/dL Hct 40.1 L 40.8 L (42.0-54.0) % RDW 16.8 H (11.0-15.0) % Lymph % (Auto) 18.1 L (20.5-60.0) % Neut # (Auto) 17.6 H (1.4-6.5) 10^3/uL Lymph # (Auto) 4.5 H (1.2-3.8) 10^3/uL [place] # (Auto) 2.2 H (0.3-0.8) 10^3/uL Abs Immat Gran (auto) 0.16 H (0.00-0.03) 10^3/uL Imm/Tot Granulo (auto) 0.6 H (0.0-0.5) % ABG pH (7.350-7.450) ABG pCO2 (35.0-45.0) mmHg ABG pO2 (80.0-100.0) mmHg Chloride 111 H (98-107) mmol/L BUN 34.0 H (7.0-18.0) mg/dL Troponin I High Sens 272.8 H* 389.3 H* 435.7 H* (4.0-76.1) pg/mL Albumin 1.9 L (3.4-5.0) g/dL Crossmatch 07/18/23 Range/Units 04:55 WBC (4.0-11.0) 10^3/uL RBC (4.70-6.10) 10^6/uL Hgb (14.0-18.0) g/dL Hct (42.0-54.0) % RDW (11.0-15.0) % Lymph % (Auto) (20.5-60.0) % Neut # (Auto) (1.4-6.5) 10^3/uL Lymph # (Auto) (1.2-3.8) 10^3/uL [place] # (Auto) (0.3-0.8) 10^3/uL Abs Immat Gran (auto) (0.00-0.03) 10^3/uL Imm/Tot Granulo (auto) (0.0-0.5) % ABG pH (7.350-7.450) ABG pCO2 (35.0-45.0) mmHg ABG pO2 62.1 L (80.0-100.0) mmHg Chloride (98-107) mmol/L BUN (7.0-18.0) mg/dL Troponin I High Sens (4.0-76.1) pg/mL Albumin (3.4-5.0) g/dL Crossmatch Diabetes panel 07/18/23 Range/Units 04:15 Sodium 142 (136-145) mmol/L Potassium 3.9 (3.5-5.1) mmol/L Chloride 111 H (98-107) mmol/L Carbon Dioxide 23.9 (21.0-32.0) mmol/L BUN 34.0 H (7.0-18.0) mg/dL Creatinine 0.85 (0.70-1.30) mg/dL Glucose 84 (74-106) mg/dL Calcium 9.7 (8.5-10.1) mg/dL AST 33 (15-37) U/L ALT 40 (16-63) U/L Alkaline Phosphatase 107 (46-116) U/L Total Protein 6.9 (6.4-8.2) g/dL Albumin 1.9 L (3.4-5.0) g/dL Calcium panel 07/18/23 Range/Units 04:15 Calcium 9.7 (8.5-10.1) mg/dL Albumin 1.9 L (3.4-5.0) g/dL Pituitary panel 07/18/23 Range/Units 04:15 Sodium 142 (136-145) mmol/L Potassium 3.9 (3.5-5.1) mmol/L Chloride 111 H (98-107) mmol/L Carbon Dioxide 23.9 (21.0-32.0) mmol/L BUN 34.0 H (7.0-18.0) mg/dL Creatinine 0.85 (0.70-1.30) mg/dL Glucose 84 (74-106) mg/dL Calcium 9.7 (8.5-10.1) mg/dL Adrenal panel 07/18/23 Range/Units 04:15 Sodium 142 (136-145) mmol/L Potassium 3.9 (3.5-5.1) mmol/L Chloride 111 H (98-107) mmol/L Carbon Dioxide 23.9 (21.0-32.0) mmol/L BUN 34.0 H (7.0-18.0) mg/dL Creatinine 0.85 (0.70-1.30) mg/dL Glucose 84 (74-106) mg/dL Calcium 9.7 (8.5-10.1) mg/dL Total Bilirubin 0.6 (0.2-1.0) mg/dL AST 33 (15-37) U/L ALT 40 (16-63) U/L Alkaline Phosphatase 107 (46-116) U/L Total Protein 6.9 (6.4-8.2) g/dL Albumin 1.9 L (3.4-5.0) g/dL All other labs normal. Assessment and Plan Assessment and Plan (1) Aspiration pneumonia: Qualifiers: Aspiration pneumonia type: due to gastric secretions Laterality: unspecified laterality Lung location: unspecified part of lung Qualified Code(s): J69.0 - Pneumonitis due to inhalation of food and vomit (2) GI bleed: Qualifiers: GI bleed type/associated pathology: unspecified gastrointestinal hemorrhage type Qualified Code(s): K92.2 - Gastrointestinal hemorrhage, unspecified (3) Elevated troponin I level: (4) Respiratory failure with hypoxia: Qualifiers: Chronicity: acute Qualified Code(s): J96.01 - Acute respiratory failure with hypoxia (5) Sepsis: Qualifiers: Sepsis type: sepsis due to unspecified organism Sepsis acute organ dysfunction status: with acute organ dysfunction Severe sepsis acute organ dysfunction type: acute respiratory failure Acute respiratory failure type: with hypoxia Severe sepsis shock status: with septic shock Qualified Code(s): A41.9 - Sepsis, unspecified organism; R65.21 - Severe sepsis with septic shock; J96.01 - Acute respiratory failure with hypoxia (6) Seizure disorder: (7) Traumatic brain injury: Qualifiers: Encounter type: subsequent encounter (8) COPD (chronic obstructive pulmonary disease): (9) Type 2 diabetes mellitus: (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 Will sign off unless needed. Please contact if needs further assistance. Continue PPI for at least six weeks.
[2023-07-18 13:14] LABS: Glucometer 77 mg/dL (74-106)
[2023-07-18 15:33] LABS: Glucometer 77 mg/dL (74-106)
[2023-07-18] MEDS: LACTATED RINGER'S SOLUTION 1,000 ML 75 ML IV (16:27)
[2023-07-18 17:21] LABS: Glucometer 71 mg/dL (74-106)
[2023-07-18] MEDS: QUETIAPINE FUMARATE 25 MG TABLET 75 MG PO (21:00)
[2023-07-18 21:06] LABS: Glucometer 70 mg/dL (74-106)
[2023-07-19] VITALS (79 sets, daily range): BP systolic 83–147; BP diastolic 46–77; PULSE 79–139; RESP 16–36; TEMP 36.3–37.3; O2SAT 82–98; BMI 25.7
[2023-07-19] MEDS: AZTREONAM 2,000 MG in 0.9 % SODIUM CHLORIDE 100 ML 100 MG IV ×3 (02:05→17:43)
[2023-07-19] MEDS: IPRATROPIUM/ALBUTEROL SULFATE 3 ML AMPUL.NEB IH ×6 (03:41→23:22)
[2023-07-19] MEDS: DIVALPROEX SODIUM 125 MG CAP.DR.SPR PO ×3 (05:16→21:02)
[2023-07-19 05:23] LABS: Glucometer 63 mg/dL (74-106)
[2023-07-19 05:31] LABS: Basophils Absolute Auto 0.1 10^3/uL (0.0-0.1); Basophils Percent Auto 0.8 % (0.2-2.0); Eosinophils Absolute Auto 0.8 10^3/uL (0.0-0.7); Eosinophils Percent Auto 6.7 % (0.9-7.0); Hematocrit 36.1 % (42.0-54.0); Hemoglobin 11.5 g/dL (14.0-18.0); Immature Granulocytes Abs Auto 0.07 10^3/uL (0.00-0.03); Immature Granulocytes Pct Auto 0.6 % (0.0-0.5); Lymphocytes Absolute Auto 1.9 10^3/uL (1.2-3.8); Lymphocytes Percent Auto 15.4 % (20.5-60.0); Mean Corpuscular HGB Conc 31.9 g/dL (29.9-35.2); Mean Corpuscular Hemoglobin 28.8 pg (25.9-34.0); Mean Corpuscular Volume 90.5 fL (80.0-94.0); Mean Platelet Volume 9.8 fL (9.5-13.5); Monocytes Absolute Auto 1.4 10^3/uL (0.3-0.8); Monocytes Percent Auto 11.3 % (1.7-12.0); Neutrophils Percent Auto 65.2 % (43.0-75.0); Platelet Count 307 10^3/uL (150-450); Red Blood Count 3.99 10^6/uL (4.70-6.10); Red Cell Distribution Width 15.8 % (11.0-15.0); White Blood Count 12.2 10^3/uL (4.0-11.0)
[2023-07-19 05:49] LABS: Alanine Aminotransferase 32 U/L (16-63); Albumin Globulin Ratio 0.4; Albumin Level 1.7 g/dL (3.4-5.0); Alkaline Phosphatase 88 U/L (46-116); Anion Gap 9.4; Aspartate Amino Transferase 24 U/L (15-37); BUN Creatinine Ratio 35.7; Bilirubin Total 0.5 mg/dL (0.2-1.0); Calcium 9.2 mg/dL (8.5-10.1); Carbon Dioxide 25.8 mmol/L (21.0-32.0); Chloride 108 mmol/L (98-107); Estimated GFR (African America >60 (>=60); Estimated GFR (Non-African Ame >60 (>=60); Globulin 4.5 g/dL; Glucose 65 mg/dL (74-106); Potassium 3.2 mmol/L (3.5-5.1); Sodium 140 mmol/L (136-145); Total Protein 6.2 g/dL (6.4-8.2)
[2023-07-19 06:15] LABS: ABG PCO2 37.2 mmHg (35.0-45.0); Allen Test POSITIVE (POSITIVE); Base Excess ABG 1.2 mmol/L (-2.0-2.0); Fractionated Inspired Oxygen 30 %; HCO3 ABG 25.3 mmol/L (22.0-26.0); O2 Mode VENT; Oxygen Saturation ABG 96.1 %; PO2 ABG 68.5 mmHg (80.0-100.0); pH ABG 7.441 (7.350-7.450)
[2023-07-19 06:16] LABS: Puncture Site R RADIAL; Rate 16; Vent Mode A/C
[2023-07-19] MEDS: LACTATED RINGER'S SOLUTION 1,000 ML 75 ML IV (06:36)
[2023-07-19 09:03] LABS: Glucometer 62 mg/dL (74-106)
[2023-07-19] MEDS: PANTOPRAZOLE SODIUM 40 MG VIAL IV ×2 (09:08→20:44)
[2023-07-19] MEDS: DEXTROSE 5 %-0.45 % SOD CHLOR 1,000 ML IV.SOLN 1000 ML IV (09:13)
[2023-07-19] MEDS: GABAPENTIN 300 MG CAPSULE 600 MG PO ×2 (09:13→21:01)
--- NOTE | 2023-07-19 10:00 | XR_ITS ---
The [address] [address] Patient Name: SHELBY VALERIO MRN: [id number] date: 1950 Sex: M Assigned Patient Location: ICU Current Patient Location: LAB Accession/Order Number: [id number] Exam Date: 07/19/2023 06:00 Report Date: 07/19/2023 08:02 At the request of: SHAIKH BRAD Procedure: XR chest 1V EXAM: XR chest 1V HISTORY: Aspiration pneumonia. COMPARISON: Portable chest radiograph dated 07/18/2023. TECHNIQUE: AP erect portable chest radiograph performed. FINDINGS: The endotracheal tube is not significantly changed in position with the distal tip overlying the thoracic inlet. The heart size is within normal limits. The mediastinal silhouette is slightly more prominent which most likely is related to positioning. There is a new small focus of pleuroparenchymal density at the left lateral costophrenic angle. There is no pulmonary vascular congestion. There is no pneumothorax. There is no acute osseous abnormality. The bony structures are osteopenic. XR/XR chest 1V IMPRESSION: The distal tip of the endotracheal tube overlies the thoracic inlet. Consider advancing the endotracheal tube. Argenis ESTRELLA notified 07/19/2023 at 0801 hours. New small focus of pleural-parenchymal density at the left lateral costophrenic angle. Electronically authenticated by: ANKIT OVERTON Date: 07/19/2023 08:02
--- NOTE | 2023-07-19 10:23 | CM.NOTE ---
Rounds made with Dr. Mayorga, discussed with RN about extubation today. Respiratory therapy will attempt weaning for extubation.
[2023-07-19] MEDS: VANCOMYCIN HCL 1,000 MG in 0.9 % SODIUM CHLORIDE 250 ML 250 MG IV ×2 (10:29→21:06)
--- NOTE | 2023-07-19 10:30 | PM.IMPN1 ---
Progress Note: A&P Assessment and Plan (1) Aspiration pneumonia: Assessment and Plan: On IV vancomycin and Aztreonam. F/u sputum and blood culture. On ventilator, acceptable gas exchange. Plan to extubate today Qualifiers: Aspiration pneumonia type: due to gastric secretions Laterality: unspecified laterality Lung location: unspecified part of lung Qualified Code(s): J69.0 - Pneumonitis due to inhalation of food and vomit (2) GI bleed: Assessment and Plan: Hb stable. Required 2 unit PRBC. on Protonix 40 q12. Monotoring. No plan for EGD. Qualifiers: GI bleed type/associated pathology: unspecified gastrointestinal hemorrhage type Qualified Code(s): K92.2 - Gastrointestinal hemorrhage, unspecified (3) Elevated troponin I level: Assessment and Plan: Continues to trend upward. Likely t2 demand ischemia Trend for now. Can't anticoagulate due to GIB. 2D ECHO ordered. (4) Respiratory failure with hypoxia: Assessment and Plan: On ventilator. Acceptable gas exchange. Possible extubation today Qualifiers: Chronicity: acute Qualified Code(s): J96.01 - Acute respiratory failure with hypoxia (5) Sepsis: Assessment and Plan: Stable hemodynamics now. BP stable. Good UO F/u cultures. Qualifiers: Acute respiratory failure type: with hypoxia Sepsis acute organ dysfunction status: with acute organ dysfunction Sepsis type: sepsis due to unspecified organism Severe sepsis acute organ dysfunction type: acute respiratory failure Severe sepsis shock status: with septic shock Qualified Code(s): A41.9 - Sepsis, unspecified organism; R65.21 - Severe sepsis with septic shock; J96.01 - Acute respiratory failure with hypoxia (6) Seizure disorder: Assessment and Plan: on depakote. C/w same (7) Traumatic brain injury: Assessment and Plan: quadriplegic from it. Qualifiers: Encounter type: subsequent encounter (8) COPD (chronic obstructive pulmonary disease): Assessment and Plan: No active wheezing. C/w albuterol as needed. 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 No events overnight. Good gas exchanged on ABG. Asked resp to wean the patient off of vent and extubate. Exam Constitutional Vital Signs, click to edit/add: Last Vital Signs Temp 98.8 F 07/19/23 00:26 Pulse 90 07/19/23 08:20 Resp 18 07/19/23 07:26 BP 102/52 07/19/23 08:00 Pulse Ox 95 07/19/23 08:20 O2 Del Method Mechanical Ventilator 07/19/23 07:26 O2 Flow Rate 50 07/17/23 14:41 FiO2 30 07/19/23 07:26 Documenting provider has reviewed patient's vital signs: yes Common normals: no apparent distress and average body habitus Exam limitations: other limitations (patient currently intubated and on a ventilator; unable to give any history) Other: intubated on ventilator Respiratory Common normals: no use of accessory muscles Auscultation: diminished lung sounds Other: On ventilator. GI Common normals: Normal to inspection, nondistended, normoactive bowel sounds present Palpation: firm Percussion: dullness to percussion Rectal Exam - Male: normal sphincter tone Other: and stool on the gloved examining finger Neuro Sensorium/orientation: awake Other: spastic paresis. Internal Medicine - PN: Obj Da Labs Labs: Laboratory Results - last 24 hr 07/17/23 07/18/23 07/18/23 08:55 13:13 15:31 WBC RBC Hgb Hct MCV MCH MCHC RDW Plt Count MPV Neut % (Auto) Lymph % (Auto) [place] % (Auto) Eos % (Auto) Baso % (Auto) Neut # (Auto) Lymph # (Auto) [place] # (Auto) Eos # (Auto) Baso # (Auto) Abs Immat Gran (auto) Imm/Tot Granulo (auto) Puncture Site ABG pH ABG pCO2 ABG pO2 ABG HCO3 ABG O2 Saturation ABG Base Excess Ronald Test Vent Mode FiO2 Tidal Volume Sodium Potassium Chloride Carbon Dioxide Anion Gap BUN Creatinine Est GFR ( Amer) Est GFR (Non-Af Amer) BUN/Creatinine Ratio Glucose Calcium Total Bilirubin AST ALT Alkaline Phosphatase Total Protein Albumin Globulin Albumin/Globulin Ratio SARS-CoV-2 RNA (HOPE) Not detected POC Glucose 77 77 07/18/23 07/18/23 07/19/23 17:20 21:05 05:16 WBC 12.2 H RBC 3.99 L Hgb 11.5 L Hct 36.1 L MCV 90.5 MCH 28.8 MCHC 31.9 RDW 15.8 H Plt Count 307 MPV 9.8 Neut % (Auto) 65.2 Lymph % (Auto) 15.4 L [place] % (Auto) 11.3 Eos % (Auto) 6.7 Baso % (Auto) 0.8 Neut # (Auto) 8.0 H Lymph # (Auto) 1.9 [place] # (Auto) 1.4 H Eos # (Auto) 0.8 H Baso # (Auto) 0.1 Abs Immat Gran (auto) 0.07 H Imm/Tot Granulo (auto) 0.6 H Puncture Site ABG pH ABG pCO2 ABG pO2 ABG HCO3 ABG O2 Saturation ABG Base Excess Ronald Test Vent Mode FiO2 Tidal Volume Sodium 140 Potassium 3.2 L Chloride 108 H Carbon Dioxide 25.8 Anion Gap 9.4 BUN 25.0 H Creatinine 0.70 Est GFR ( Amer) >60 Est GFR (Non-Af Amer) >60 BUN/Creatinine Ratio 35.7 Glucose 65 L Calcium 9.2 Total Bilirubin 0.5 AST 24 ALT 32 Alkaline Phosphatase 88 Total Protein 6.2 L Albumin 1.7 L Globulin 4.5 Albumin/Globulin Ratio 0.4 SARS-CoV-2 RNA (HOPE) POC Glucose 71 L 70 L 07/19/23 07/19/23 07/19/23 05:22 06:09 08:58 WBC RBC Hgb Hct MCV MCH MCHC RDW Plt Count MPV Neut % (Auto) Lymph % (Auto) [place] % (Auto) Eos % (Auto) Baso % (Auto) Neut # (Auto) Lymph # (Auto) [place] # (Auto) Eos # (Auto) Baso # (Auto) Abs Immat Gran (auto) Imm/Tot Granulo (auto) Puncture Site R radial ABG pH 7.441 ABG pCO2 37.2 ABG pO2 68.5 L ABG HCO3 25.3 ABG O2 Saturation 96.1 ABG Base Excess 1.2 Ronald Test Positive Vent Mode A/c FiO2 30 Tidal Volume Sodium Potassium Chloride Carbon Dioxide Anion Gap BUN Creatinine Est GFR ( Amer) Est GFR (Non-Af Amer) BUN/Creatinine Ratio Glucose Calcium Total Bilirubin AST ALT Alkaline Phosphatase Total Protein Albumin Globulin Albumin/Globulin Ratio SARS-CoV-2 RNA (HOPE) POC Glucose 63 L 62 L Urinary Catheter Management Urinary Catheter Management Urethral: Cath placed during this visit: yes Urethral indwelling: Yes Reason for continuing: measure accurate output Insertion date: 07/17/23
[2023-07-19 10:46] LABS: Vancomycin Trough 15.2 ug/mL (5.0-20.0)
--- NOTE | 2023-07-19 11:07 | RESP.RT ---
RSBI 45; extubated without incident
--- NOTE | 2023-07-19 11:42 | CM.NOTE ---
Updates sent to [facility] and Jing called for update on pt.
--- NOTE | 2023-07-19 12:46 | DIETREC ---
TF recommendation: 55 mL/hour Jevity 1.5 formula continuous to provide 1980 kcal, 84 gm PRO, 1003 mL free water in 1320 mL TV q24 hours. Begin TF @ 30 mL/hour and increase by 5 mL after first 4 hours; increase by 5 mL thereafter q2 hours as tolerated to goal rate of 55 mL/hr. Provide water flushes of 100 mL q4 hours = 600mL TV q24 hours. HOLD TF x 4 hours if pt has residuals of 100 mL or more, then restart TF @ 30 mL/hour and increase by 5 mL/hr increments q2 hours as tolerated.
[2023-07-19] MEDS: JEVITY 1.5 CAL 237 ML LIQUID G-TUBE ×3 (13:06→21:02)
[2023-07-19 13:14] LABS: Glucometer 89 mg/dL (74-106)
--- NOTE | 2023-07-19 15:57 | CM.NOTE ---
Important Message From Medicare discussed with pt, pt verbalizes understanding. Pt unable to write d/t contractures. Pt gives verbal consent to sign form, original given to pt and copy placed in pt's chart.
[2023-07-19 17:50] LABS: Glucometer 104 mg/dL (74-106)
[2023-07-19] MEDS: QUETIAPINE FUMARATE 25 MG TABLET 75 MG PO (21:01)
[2023-07-19 23:24] LABS: Glucometer 117 mg/dL (74-106)
[2023-07-20] VITALS (118 sets, daily range): BP systolic 122–157; BP diastolic 64–109; PULSE 71–187; RESP 16–52; TEMP 36.6–38.3; O2SAT 2–97
[2023-07-20] MEDS: JEVITY 1.5 CAL 237 ML LIQUID G-TUBE ×4 (02:14→17:01)
[2023-07-20] MEDS: AZTREONAM 2,000 MG in 0.9 % SODIUM CHLORIDE 100 ML 100 MG IV ×3 (02:14→17:01)
[2023-07-20] MEDS: IPRATROPIUM/ALBUTEROL SULFATE 3 ML AMPUL.NEB IH ×5 (03:55→19:35)
[2023-07-20 05:27] LABS: Glucometer 122 mg/dL (74-106)
[2023-07-20 05:40] LABS: Basophils Absolute Auto 0.1 10^3/uL (0.0-0.1); Basophils Percent Auto 0.6 % (0.2-2.0); Eosinophils Percent Auto 8.2 % (0.9-7.0); Hematocrit 39.6 % (42.0-54.0); Hemoglobin 12.8 g/dL (14.0-18.0); Immature Granulocytes Pct Auto 0.8 % (0.0-0.5); Lymphocytes Absolute Auto 2.1 10^3/uL (1.2-3.8); Lymphocytes Percent Auto 16.6 % (20.5-60.0); Mean Corpuscular HGB Conc 32.3 g/dL (29.9-35.2); Mean Corpuscular Volume 89.6 fL (80.0-94.0); Mean Platelet Volume 9.5 fL (9.5-13.5); Monocytes Absolute Auto 1.2 10^3/uL (0.3-0.8); Monocytes Percent Auto 9.3 % (1.7-12.0); Neutrophils Percent Auto 64.5 % (43.0-75.0); Platelet Count 370 10^3/uL (150-450); Red Blood Count 4.42 10^6/uL (4.70-6.10); White Blood Count 12.4 10^3/uL (4.0-11.0)
[2023-07-20 06:06] LABS: Alanine Aminotransferase 35 U/L (16-63); Albumin Globulin Ratio 0.4; Albumin Level 2.1 g/dL (3.4-5.0); Alkaline Phosphatase 103 U/L (46-116); Anion Gap 10.3; Aspartate Amino Transferase 23 U/L (15-37); Bilirubin Total 0.4 mg/dL (0.2-1.0); Calcium 9.5 mg/dL (8.5-10.1); Carbon Dioxide 26.7 mmol/L (21.0-32.0); Chloride 104 mmol/L (98-107); Estimated GFR (African America >60 (>=60); Estimated GFR (Non-African Ame >60 (>=60); Globulin 5.3 g/dL; Glucose 126 mg/dL (74-106); Sodium 138 mmol/L (136-145); Total Protein 7.4 g/dL (6.4-8.2)
[2023-07-20] MEDS: DIVALPROEX SODIUM 125 MG CAP.DR.SPR PO ×3 (06:19→21:00)
[2023-07-20] MEDS: DEXTROSE 5 %-0.45 % SOD CHLOR 1,000 ML IV.SOLN 1000 ML IV (06:19)
[2023-07-20] MEDS: GABAPENTIN 300 MG CAPSULE 600 MG PO ×2 (08:27→21:00)
[2023-07-20] MEDS: PANTOPRAZOLE SODIUM 40 MG VIAL IV ×2 (08:27→20:59)
[2023-07-20] MEDS: POTASSIUM CHLORIDE 40 MEQ in 0.9 % SODIUM CHLORIDE 250 ML 67.5 MEQ IV (08:40)
[2023-07-20] MEDS: VANCOMYCIN HCL 1,000 MG in 0.9 % SODIUM CHLORIDE 250 ML 250 MG IV ×2 (10:01→21:01)
[2023-07-20 11:13] LABS: Glucometer 159 mg/dL (74-106)
[2023-07-20] MEDS: INSULIN ASPART 300 UNIT/3 ML PEN SUBQ ×2 (11:13→17:04)
--- NOTE | 2023-07-20 11:30 | P.IMPN_ITS ---
Progress Note: A&P Assessment and Plan (1) Aspiration pneumonia: Assessment and Plan: On IV vancomycin and Aztreonam. F/u sputum and blood culture. On 3 L O 2 via NC. Extubated 07/19/23 Qualifiers: Aspiration pneumonia type: due to gastric secretions Laterality: unspecified laterality Lung location: unspecified part of lung Qualified Code(s): J69.0 - Pneumonitis due to inhalation of food and vomit (2) GI bleed: Assessment and Plan: Hb stable. Required 2 unit PRBC. on Protonix 40 q12. Monitoring. Qualifiers: GI bleed type/associated pathology: unspecified gastrointestinal hemorrhage type Qualified Code(s): K92.2 - Gastrointestinal hemorrhage, unspecified (3) Elevated troponin I level: Assessment and Plan: Likely t2 demand ischemia Trend for now. Can't anticoagulate due to GIB. 2D ECHO - normal LVEF, no WMA (4) Respiratory failure with hypoxia: Assessment and Plan: On 3 L O2 , this his baseline. Qualifiers: Chronicity: acute Qualified Code(s): J96.01 - Acute respiratory failure with hypoxia (5) Sepsis: Assessment and Plan: Stable hemodynamics now. BP stable. Good UO F/u cultures. Resumed amlodipine. Mild volume overload. One dose of IV lasix ordered Qualifiers: Sepsis type: sepsis due to unspecified organism Sepsis acute organ dysfunction status: with acute organ dysfunction Severe sepsis acute organ dysfunction type: acute respiratory failure Acute respiratory failure type: with hypoxia Severe sepsis shock status: with septic shock Qualified Code(s): A41.9 - Sepsis, unspecified organism; R65.21 - Severe sepsis with septic shock; J96.01 - Acute respiratory failure with hypoxia (6) Seizure disorder: Assessment and Plan: on depakote. C/w same (7) Traumatic brain injury: Assessment and Plan: quadriplegic from it. Qualifiers: Encounter type: subsequent encounter (8) COPD (chronic obstructive pulmonary disease): Assessment and Plan: No active wheezing. C/w albuterol as needed. 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 Internal Medicine - PN: Subj Subjective Interval history: Seen and examined. Doing well. No events. On 3 L O2 - His baseline. Tolerating TF. Exam Constitutional Vital Signs, click to edit/add: Last Vital Signs Temp 99.6 F 07/20/23 05:00 Pulse 88 07/20/23 11:10 Resp 35 H 07/20/23 11:10 BP 144/75 H 07/20/23 11:00 Pulse Ox 94 L 07/20/23 11:10 O2 Del Method Nasal Cannula 07/20/23 10:49 O2 Flow Rate 3 07/20/23 10:49 FiO2 30 07/19/23 10:58 Documenting provider has reviewed patient's vital signs: yes General appearance: ill appearing and frail appearing HENMT Common normals: normocephalic and head/scalp atraumatic Respiratory Common normals: normal respiratory effort and no use of accessory muscles Auscultation: diminished lung sounds Cardio Common normals: regular rhythm, S1 normal heart sound and S2 normal heart sound GI Common normals: Normal to inspection, nondistended, normoactive bowel sounds present Inspection: other (PEG in place) Back & Pelvis Common normals: no CVA tenderness Extremity Other: spastic paresis, quadriplegic. Neuro Common normals: oriented x3 Other: Spastic quadriplegic Psych Attitude: calm Speech: incoherent Internal Medicine - PN: Obj Da Labs Labs: Laboratory Results - last 24 hr 07/19/23 07/19/23 07/19/23 13:10 17:43 23:22 WBC RBC Hgb Hct MCV MCH MCHC RDW Plt Count MPV Neut % (Auto) Lymph % (Auto) [place] % (Auto) Eos % (Auto) Baso % (Auto) Neut # (Auto) Lymph # (Auto) [place] # (Auto) Eos # (Auto) Baso # (Auto) Abs Immat Gran (auto) Imm/Tot Granulo (auto) Sodium Potassium Chloride Carbon Dioxide Anion Gap BUN Creatinine Est GFR ( Amer) Est GFR (Non-Af Amer) BUN/Creatinine Ratio Glucose Calcium Total Bilirubin AST ALT Alkaline Phosphatase Total Protein Albumin Globulin Albumin/Globulin Ratio POC Glucose 89 104 117 H 07/20/23 07/20/23 05:25 11:12 WBC 12.4 H RBC 4.42 L Hgb 12.8 L Hct 39.6 L MCV 89.6 MCH 29.0 MCHC 32.3 RDW 15.0 Plt Count 370 MPV 9.5 Neut % (Auto) 64.5 Lymph % (Auto) 16.6 L [place] % (Auto) 9.3 Eos % (Auto) 8.2 H Baso % (Auto) 0.6 Neut # (Auto) 8.0 H Lymph # (Auto) 2.1 [place] # (Auto) 1.2 H Eos # (Auto) 1.0 H Baso # (Auto) 0.1 Abs Immat Gran (auto) 0.10 H Imm/Tot Granulo (auto) 0.8 H Sodium 138 Potassium 3.0 L Chloride 104 Carbon Dioxide 26.7 Anion Gap 10.3 BUN 14.0 Creatinine 0.70 Est GFR ( Amer) >60 Est GFR (Non-Af Amer) >60 BUN/Creatinine Ratio 20.0 Glucose 126 H Calcium 9.5 Total Bilirubin 0.4 AST 23 ALT 35 Alkaline Phosphatase 103 Total Protein 7.4 Albumin 2.1 L Globulin 5.3 Albumin/Globulin Ratio 0.4 POC Glucose 122 H 159 H Urinary Catheter Management Urinary Catheter Management Urethral: Cath placed during this visit: yes Urethral indwelling: Yes Reason for continuing: measure accurate output Insertion date: 07/17/23
--- NOTE | 2023-07-20 11:44 | CM.NOTE ---
Rounds made with Dr. Mayorga, pt may transfer to Med-Surg floor today and possible discharge back to [facility] tomorrow.
--- NOTE | 2023-07-20 12:27 | CM.NOTE ---
Called Jing at [facility] for update and faxed clinical on pt.
[2023-07-20] MEDS: AMLODIPINE BESYLATE 5 MG TABLET 10 MG PO (12:36)
[2023-07-20] MEDS: FUROSEMIDE 40 MG/4 ML VIAL IVP (12:36)
[2023-07-20 17:08] LABS: Glucometer 157 mg/dL (74-106)
[2023-07-20] MEDS: ACETAMINOPHEN 325 MG TABLET 650 MG PO (19:33)
[2023-07-20] MEDS: QUETIAPINE FUMARATE 25 MG TABLET 75 MG PO (20:59)
[2023-07-20 21:31] LABS: Glucometer 121 mg/dL (74-106)
[2023-07-21] VITALS (45 sets, daily range): BP systolic 82–123; BP diastolic 45–101; PULSE 62–108; RESP 15–28; TEMP 36.3–37; O2SAT 89–100; BMI 24.5
[2023-07-21] MEDS: AZTREONAM 2,000 MG in 0.9 % SODIUM CHLORIDE 100 ML 100 MG IV ×3 (01:13→17:29)
[2023-07-21] MEDS: JEVITY 1.5 CAL 237 ML LIQUID G-TUBE ×3 (01:13→21:12)
[2023-07-21] MEDS: IPRATROPIUM/ALBUTEROL SULFATE 3 ML AMPUL.NEB IH ×4 (02:30→23:50)
--- NOTE | 2023-07-21 03:02 | ECG_ITS ---
The [facility] Test Date: 2023-07-21 Pat Name: SHEBLY VALERIO Department: Room: [facility] Gender: Male [place] Reporter: : 1950 Requested By: ADELINA NIXON Order Number: [id number] Reading MD: MANAV FERNANDES Measurements Intervals [place] Rate: 87 P: 55 IL: 138 QRS: -31 QRSD: 104 T: 50 QT: 368 QTc: 412 Interpretive Statements 1100 Sinus rhythm 1474 with frequent supraventricular premature complexes 1570 with occasional ventricular premature complexes 7200 Abnormal left axis deviation 9140 abnormal rhythm ECG Electronically Signed On 07-21-2023 7:07:46 EST by MANAV FERNANDES
[2023-07-21 03:36] LABS: Oxygen Saturation ABG 77.9 %
[2023-07-21 03:37] LABS: Allen Test POSITIVE (POSITIVE)
[2023-07-21 03:39] LABS: ABG PCO2 >120.0 mmHg (35.0-45.0); HCO3 ABG 0 mmol/L (22.0-26.0); pH ABG 7.007 (7.350-7.450)
[2023-07-21 03:40] LABS: Base Excess ABG 0 mmol/L (-2.0-2.0); Liters per Minute 15; O2 Mode NONREBREATHER MASK
--- NOTE | 2023-07-21 04:04 | PC.NURSE ---
2200/2300 - Pt mouth breathing on 2lts NC desating as low as 74% with periods of apnea, increased oxygen to 4lts and positioned it near his mouth 0000 Little change in assessment, pt continues to be diminshed throughout on 4lts breathing slighly more labored that normal, Spo continues to be 88-92%, blood pressure 80s systolic 0100/0200 noted that patient is trying to clear his throat, suctioned minimal amount webber secretions from back of throat several times. Some wheezing noted 0225 Notfied RT that patient needs a breathing trmt d/t audible wheezing worse./ Pt opens eyes to sternal rub and moaning. 0245 Breathing no better SPO2 started dropping 90%, 88% and at 0255 79% SPO2- 0255 Notified Sister of current situation - ABGs and EKG ordered 0305 Dr. Mayer from ER was notified of the decline of patient and asked him to assess/ bipap ordered 0310 SPO2 76% - on nonrebreather, pt continues to be diminished and abdominal breathing. RN called POA to give update and possible need for intubation per Dr. Mayer. Left Message on Machine to [facility] #[phone] 0320 Pt shaved prior to being placed on Bipap for better seal. Bipap on spo2 89% 16/8 60% fio2 BP 123/66 0330/[address] Mayer and Sister of critical ABGs. Dr. Mayer wants to have Recheck ABGs done later in AM. Current spo2 95-100%. 0400 SPO2 93% , HR 85 NSR
[2023-07-21 06:06] LABS: Glucometer 127 mg/dL (74-106)
[2023-07-21 06:08] LABS: Basophils Absolute Auto 0.1 10^3/uL (0.0-0.1); Basophils Percent Auto 0.3 % (0.2-2.0); Eosinophils Absolute Auto 0.5 10^3/uL (0.0-0.7); Eosinophils Percent Auto 3.2 % (0.9-7.0); Hematocrit 45.7 % (42.0-54.0); Immature Granulocytes Abs Auto 0.11 10^3/uL (0.00-0.03); Immature Granulocytes Pct Auto 0.7 % (0.0-0.5); Lymphocytes Absolute Auto 0.9 10^3/uL (1.2-3.8); Lymphocytes Percent Auto 5.8 % (20.5-60.0); Mean Corpuscular HGB Conc 30.6 g/dL (29.9-35.2); Mean Corpuscular Hemoglobin 28.9 pg (25.9-34.0); Mean Corpuscular Volume 94.2 fL (80.0-94.0); Mean Platelet Volume 9.8 fL (9.5-13.5); Monocytes Absolute Auto 1.2 10^3/uL (0.3-0.8); Monocytes Percent Auto 7.5 % (1.7-12.0); Neutrophils Absolute Auto 12.7 10^3/uL (1.4-6.5); Neutrophils Percent Auto 82.5 % (43.0-75.0); Platelet Count 361 10^3/uL (150-450); Red Blood Count 4.85 10^6/uL (4.70-6.10); Red Cell Distribution Width 15.4 % (11.0-15.0); White Blood Count 15.4 10^3/uL (4.0-11.0)
[2023-07-21 06:44] LABS: Alanine Aminotransferase 35 U/L (16-63); Albumin Globulin Ratio 0.4; Albumin Level 2.1 g/dL (3.4-5.0); Alkaline Phosphatase 108 U/L (46-116); Anion Gap 13.9; Aspartate Amino Transferase 26 U/L (15-37); BUN Creatinine Ratio 21.2; Bilirubin Total 0.3 mg/dL (0.2-1.0); Calcium 9.8 mg/dL (8.5-10.1); Carbon Dioxide 26.1 mmol/L (21.0-32.0); Chloride 105 mmol/L (98-107); Estimated GFR (African America >60 (>=60); Estimated GFR (Non-African Ame >60 (>=60); Globulin 5.6 g/dL; Glucose 152 mg/dL (74-106); Sodium 141 mmol/L (136-145); Total Protein 7.7 g/dL (6.4-8.2)
--- NOTE | 2023-07-21 07:13 | XR_ITS ---
The [address] [address] Patient Name: SHELBY VALERIO MRN: [id number] date: 1950 Sex: M Assigned Patient Location: ICU Current Patient Location: ICU Accession/Order Number: [id number] Exam Date: 07/21/2023 07:20 Report Date: 07/21/2023 07:55 At the request of: SHAIKH BRAD Procedure: XR chest 1V EXAMINATION: XR chest 1V HISTORY: pneumonia COMPARISON: XR chest 07/19/2023 FINDINGS: LUNGS: Patchy and strandy opacities within lung bases, mild on right, moderate on left. VASCULATURE: No increased pulmonary vasculature. PLEURA: No pneumothorax, effusion, or pleural thickening. CARDIAC: No cardiomegaly or cardiac silhouette abnormality. MEDIASTINUM: No visible mass or adenopathy. BONES: No fracture or visible bone lesion. OTHER: Negative. XR/XR chest 1V IMPRESSION: 1. Interval removal of endotracheal tube. 2. Interval development of mild right and moderate left basilar infiltrates versus atelectasis. Electronically authenticated by: KYLE DOLAN Date: 07/21/2023 07:55
--- NOTE | 2023-07-21 07:38 | RESP.RT ---
High leak due to pt face size and positioning, but pt getting acceptable exhaled volume. xl mask not available
[2023-07-21 08:05] LABS: ABG PCO2 49.6 mmHg (35.0-45.0); Allen Test POSITIVE (POSITIVE); BIPAP Pressure 16/8; Base Excess ABG 5.2 mmol/L (-2.0-2.0); Fractionated Inspired Oxygen 60 %; HCO3 ABG 30.1 mmol/L (22.0-26.0); O2 Mode BIPAP; Oxygen Saturation ABG >100.0 %; Puncture Site RR; pH ABG 7.392 (7.350-7.450)
[2023-07-21 08:06] LABS: Rate 17
--- NOTE | 2023-07-21 08:09 | RESP.RT ---
Titrated down to 40% FiO2 due to results of ABG
--- NOTE | 2023-07-21 09:02 | PC.NURSE ---
unable to assess patients neurological function at this time.
[2023-07-21] MEDS: AMLODIPINE BESYLATE 5 MG TABLET 10 MG PO (09:37)
[2023-07-21] MEDS: PANTOPRAZOLE SODIUM 40 MG VIAL IV ×2 (09:37→21:13)
[2023-07-21] MEDS: GABAPENTIN 300 MG CAPSULE 600 MG PO ×2 (09:37→21:13)
[2023-07-21] MEDS: VANCOMYCIN HCL 1,000 MG in 0.9 % SODIUM CHLORIDE 250 ML 250 MG IV ×2 (10:43→21:26)
--- NOTE | 2023-07-21 11:00 | CM.NOTE ---
Update given to Jing at [facility], pt will not discharge today. Jing's contact number if pt would D/C over the weekend [phone].
[2023-07-21 12:50] LABS: Glucometer 97 mg/dL (74-106)
[2023-07-21] MEDS: FUROSEMIDE 40 MG/4 ML VIAL IVP (13:28)
[2023-07-21] MEDS: VALPROIC ACID 250 MG/5 ML 125 MG G-TUBE ×2 (13:32→21:14)
--- NOTE | 2023-07-21 13:47 | P.IMPN_ITS ---
Progress Note: A&P Assessment and Plan (1) Acute respiratory failure with hypercapnia: Assessment and Plan: Acute resp acidosis, resp failure with hypercapnia overnight. Placed on BIPAP with improvement in hypercapnia, acidosis but patient is still very lethargic and drowsy. Barely arousable. CXR shows bilateral infilitrates vs atelectasis. I suspect atelectasis over new infiltrates. C/w BIPAP (2) Acute on chronic diastolic (congestive) heart failure: Assessment and Plan: Likely volume overload. Patient started on Lasix 40 q12. Re- assess continued need for it tomorrow. Monitor UO, I/O and daily weights. (3) Aspiration pneumonia: Assessment and Plan: On IV vancomycin and Aztreonam. F/u sputum and blood culture. Extubated 07/19/23. Overnight developed acute resp failure with hypercapnia and was placed on BIPAP. Qualifiers: Aspiration pneumonia type: due to gastric secretions Laterality: unspecified laterality Lung location: unspecified part of lung Qualified Code(s): J69.0 - Pneumonitis due to inhalation of food and vomit (4) GI bleed: Assessment and Plan: Hb stable. Required 2 unit PRBC. on Protonix 40 q12. Monitoring. Qualifiers: GI bleed type/associated pathology: unspecified gastrointestinal hemor rhage type Qualified Code(s): K92.2 - Gastrointestinal hemorrhage, unspecified (5) Elevated troponin I level: Assessment and Plan: Likely t2 demand ischemia Trend for now. Can't anticoagulate due to GIB. 2D ECHO - normal LVEF, no WMA (6) Respiratory failure with hypoxia: Assessment and Plan: O2 requirement has not changed much but placed on BIPAP overnight for hypercapnic resp failure. Qualifiers: Chronicity: acute Qualified Code(s): J96.01 - Acute respiratory failure with hypoxia (7) Sepsis: Assessment and Plan: Stable hemodynamics now. BP stable. Good UO F/u cultures. Resumed amlodipine. Qualifiers: Sepsis type: sepsis due to unspecified organism Sepsis acute organ dysfunction status: with acute organ dysfunction Severe sepsis acute organ dysfunction type: acute respiratory failure Acute respiratory failure type: with hypoxia Severe sepsis shock status: with septic shock Qualified Code(s): A41.9 - Sepsis, unspecified organism; R65.21 - Severe sepsis with septic shock; J96.01 - Acute respiratory failure with hypoxia (8) Seizure disorder: Assessment and Plan: on depakote. C/w same (9) Traumatic brain injury: Assessment and Plan: quadriplegic from it. Qualifiers: Encounter type: subsequent encounter (10) COPD (chronic obstructive pulmonary disease): Assessment and Plan: No active wheezing. C/w albuterol as needed. (11) Type 2 diabetes mellitus: Assessment and Plan: SSI while inpatient (12) Quadriplegia, post-traumatic: Assessment and Plan: unchanged (13) Hypertension: Assessment and Plan: started back on Amlodipine 10 mg. Plan Change in clinical status, now has acute resp failure with hypercapnia requiring BIPAP support. Also - volume overload from acute on chronic diastolic HF - Started on diuresis. Needs continued inpatient clinical care for acute and multiple life threatening conditions Internal Medicine - PN: Subj Subjective Interval history: Overnight, became unresponsive with minimal response on painful stimulus. ABG ordered that revealed acute resp acidosis for which patient was placed on BIPAP. He is still confused, drowsy but arousable somewhat. Tolerating BIPAP, repeat ABG show improvement in hypercapnia. Exam Constitutional Vital Signs, click to edit/add: Last Vital Signs Temp 98.4 F 07/21/23 12:00 Pulse 63 07/21/23 12:00 Resp 18 07/21/23 12:00 BP 114/57 07/21/23 13:28 Pulse Ox 95 07/21/23 12:00 O2 Del Method BIPAP 07/21/23 12:00 O2 Flow Rate 4 07/21/23 02:30 FiO2 30 07/21/23 12:00 Documenting provider has reviewed patient's vital signs: yes General appearance: ill appearing and frail appearing Nutritional appearance: underweight Orientation/consciousness: Yes confused and Yes lethargic Respiratory Common normals: normal respiratory effort and no use of accessory muscles Effort & inspection: decreased respiratory effort Other: on BIPAP. No wheezing noted. Crackles/diminished lung sounds at bases. Cardio Common normals: regular rate, regular rhythm, S1 normal heart sound and S2 normal heart sound Extremity Other: Spastic paresis of UE and LE. Chronic heal wounds b/l from pressure injury. Neuro Sensorium/orientation: somnolent Speech: abnormal speech Other: Spastic quadriplegia from Traumatic brain injury. Internal Medicine - PN: Obj Da Labs Labs: Laboratory Results - last 24 hr 07/20/23 07/20/23 07/21/23 17:04 21:26 03:15 WBC RBC Hgb Hct MCV MCH MCHC RDW Plt Count MPV Neut % (Auto) Lymph % (Auto) [place] % (Auto) Eos % (Auto) Baso % (Auto) Neut # (Auto) Lymph # (Auto) [place] # (Auto) Eos # (Auto) Baso # (Auto) Abs Immat Gran (auto) Imm/Tot Granulo (auto) Puncture Site ABG pH 7.007 L* ABG pCO2 >120.0 H* ABG pO2 59.0 L* ABG HCO3 0 L ABG O2 Saturation 77.9 ABG Base Excess 0 Ronald Test Positive O2 Liters/Min 15 FiO2 BiPAP Sodium Potassium Chloride Carbon Dioxide Anion Gap BUN Creatinine Est GFR ( Amer) Est GFR (Non-Af Amer) BUN/Creatinine Ratio Glucose Calcium Total Bilirubin AST ALT Alkaline Phosphatase Total Protein Albumin Globulin Albumin/Globulin Ratio POC Glucose 157 H 121 H 07/21/23 07/21/23 07/21/23 04:41 06:05 07:56 WBC 15.4 H RBC 4.85 Hgb 14.0 Hct 45.7 MCV 94.2 H MCH 28.9 MCHC 30.6 RDW 15.4 H Plt Count 361 MPV 9.8 Neut % (Auto) 82.5 H Lymph % (Auto) 5.8 L [place] % (Auto) 7.5 Eos % (Auto) 3.2 Baso % (Auto) 0.3 Neut # (Auto) 12.7 H Lymph # (Auto) 0.9 L [place] # (Auto) 1.2 H Eos # (Auto) 0.5 Baso # (Auto) 0.1 Abs Immat Gran (auto) 0.11 H Imm/Tot Granulo (auto) 0.7 H Puncture Site Rr ABG pH 7.392 ABG pCO2 49.6 H ABG pO2 155.0 H ABG HCO3 30.1 H ABG O2 Saturation >100.0 ABG Base Excess 5.2 H Ronald Test Positive O2 Liters/Min FiO2 60 BiPAP 16/8 Sodium 141 Potassium 4.0 Chloride 105 Carbon Dioxide 26.1 Anion Gap 13.9 BUN 18.0 Creatinine 0.85 Est GFR ( Amer) >60 Est GFR (Non-Af Amer) >60 BUN/Creatinine Ratio 21.2 Glucose 152 H Calcium 9.8 Total Bilirubin 0.3 AST 26 ALT 35 Alkaline Phosphatase 108 Total Protein 7.7 Albumin 2.1 L Globulin 5.6 Albumin/Globulin Ratio 0.4 POC Glucose 127 H 07/21/23 12:49 WBC RBC Hgb Hct MCV MCH MCHC RDW Plt Count MPV Neut % (Auto) Lymph % (Auto) [place] % (Auto) Eos % (Auto) Baso % (Auto) Neut # (Auto) Lymph # (Auto) [place] # (Auto) Eos # (Auto) Baso # (Auto) Abs Immat Gran (auto) Imm/Tot Granulo (auto) Puncture Site ABG pH ABG pCO2 ABG pO2 ABG HCO3 ABG O2 Saturation ABG Base Excess Ronald Test O2 Liters/Min FiO2 BiPAP Sodium Potassium Chloride Carbon Dioxide Anion Gap BUN Creatinine Est GFR ( Amer) Est GFR (Non-Af Amer) BUN/Creatinine Ratio Glucose Calcium Total Bilirubin AST ALT Alkaline Phosphatase Total Protein Albumin Globulin Albumin/Globulin Ratio POC Glucose 97 Urinary Catheter Management Urinary Catheter Management Urethral: Cath placed during this visit: yes Urethral indwelling: Yes Reason for continuing: measure accurate output Insertion date: 07/17/23
--- NOTE | 2023-07-21 14:18 | DIETREC ---
Nutrition Recommendations: 1) Resume tube feeding as tolerated; may decrease rate to 30 mL and increase by 10 mL Q 4-6 hours as tolerated to 60 ml/hr 2) Monitor GI function RD following
[2023-07-21 17:30] LABS: Glucometer 99 mg/dL (74-106)
--- NOTE | 2023-07-21 20:02 | RESP.RT ---
patient refused breathing treatments for the night
[2023-07-21] MEDS: QUETIAPINE FUMARATE 25 MG TABLET 75 MG PO (21:13)
[2023-07-21 21:23] LABS: Glucometer 87 mg/dL (74-106)
[2023-07-22] VITALS (11 sets, daily range): BP systolic 90–119; BP diastolic 52–71; PULSE 72–98; RESP 15–24; TEMP 36.3–37.1; O2SAT 95–97
[2023-07-22] MEDS: JEVITY 1.5 CAL 237 ML LIQUID G-TUBE ×3 (01:05→09:25)
[2023-07-22] MEDS: AZTREONAM 2,000 MG in 0.9 % SODIUM CHLORIDE 100 ML 100 MG IV ×2 (01:05→09:25)
[2023-07-22] MEDS: FUROSEMIDE 40 MG/4 ML VIAL IVP (01:06)
[2023-07-22] MEDS: IPRATROPIUM/ALBUTEROL SULFATE 3 ML AMPUL.NEB IH ×2 (03:57→07:32)
[2023-07-22 04:16] LABS: Basophils Absolute Auto 0.1 10^3/uL (0.0-0.1); Basophils Percent Auto 0.6 % (0.2-2.0); Eosinophils Percent Auto 10.5 % (0.9-7.0); Hematocrit 40.8 % (42.0-54.0); Hemoglobin 12.9 g/dL (14.0-18.0); Immature Granulocytes Abs Auto 0.04 10^3/uL (0.00-0.03); Immature Granulocytes Pct Auto 0.4 % (0.0-0.5); Lymphocytes Absolute Auto 1.9 10^3/uL (1.2-3.8); Lymphocytes Percent Auto 20.2 % (20.5-60.0); Mean Corpuscular HGB Conc 31.6 g/dL (29.9-35.2); Mean Corpuscular Hemoglobin 28.6 pg (25.9-34.0); Mean Corpuscular Volume 90.5 fL (80.0-94.0); Mean Platelet Volume 9.2 fL (9.5-13.5); Monocytes Absolute Auto 0.9 10^3/uL (0.3-0.8); Monocytes Percent Auto 9.6 % (1.7-12.0); Neutrophils Absolute Auto 5.5 10^3/uL (1.4-6.5); Neutrophils Percent Auto 58.7 % (43.0-75.0); Platelet Count 415 10^3/uL (150-450); Red Blood Count 4.51 10^6/uL (4.70-6.10); Red Cell Distribution Width 15.2 % (11.0-15.0); White Blood Count 9.4 10^3/uL (4.0-11.0)
[2023-07-22 04:34] LABS: Alanine Aminotransferase 55 U/L (16-63); Albumin Globulin Ratio 0.4; Albumin Level 2.1 g/dL (3.4-5.0); Alkaline Phosphatase 97 U/L (46-116); Anion Gap 6.8; Aspartate Amino Transferase 33 U/L (15-37); BUN Creatinine Ratio 20.5; Bilirubin Total 0.3 mg/dL (0.2-1.0); Calcium 9.5 mg/dL (8.5-10.1); Carbon Dioxide 35.3 mmol/L (21.0-32.0); Chloride 105 mmol/L (98-107); Estimated GFR (African America >60 (>=60); Estimated GFR (Non-African Ame >60 (>=60); Globulin 5.3 g/dL; Glucose 118 mg/dL (74-106); Potassium 3.1 mmol/L (3.5-5.1); Sodium 144 mmol/L (136-145); Total Protein 7.4 g/dL (6.4-8.2)
[2023-07-22] MEDS: VALPROIC ACID 250 MG/5 ML 125 MG G-TUBE ×2 (05:32→14:50)
[2023-07-22] MEDS: GABAPENTIN 300 MG CAPSULE 600 MG PO (08:20)
[2023-07-22] MEDS: PANTOPRAZOLE SODIUM 40 MG VIAL IV (08:20)
[2023-07-22] MEDS: VANCOMYCIN HCL 1,000 MG in 0.9 % SODIUM CHLORIDE 250 ML 250 MG IV (09:25)
[2023-07-22 12:17] LABS: Glucometer 123 mg/dL (74-106)
--- NOTE | 2023-07-22 16:35 | PM.DS1 ---
DS: Providers Provider Date of admission: 07/17/23 11:51 Primary care physician: ADELINA NIXON Consults: 07/17/23 Consult to Dietitian Routine Reason For Exam: malnutrition Reason for consultation: malnutrition 07/17/23 14:06 Consult to General Surgeon Routine Consulting Provider: Edmund Singh Reason for consultation: GI bleeding DS: Diagnosis Discharge Diagnosis (1) Aspiration pneumonia: Qualifiers: Aspiration pneumonia type: due to gastric secretions Laterality: unspecified laterality Lung location: unspecified part of lung Qualified Code(s): J69.0 - Pneumonitis due to inhalation of food and vomit (2) Sepsis: Qualifiers: Acute respiratory failure type: with hypoxia Sepsis acute organ dysfunction status: with acute organ dysfunction Sepsis type: sepsis due to unspecified organism Severe sepsis acute organ dysfunction type: acute respiratory failure Severe sepsis shock status: with septic shock Qualified Code(s): A41.9 - Sepsis, unspecified organism; R65.21 - Severe sepsis with septic shock; J96.01 - Acute respiratory failure with hypoxia (3) Respiratory failure with hypoxia: Qualifiers: Chronicity: acute Qualified Code(s): J96.01 - Acute respiratory failure with hypoxia (4) Acute respiratory failure with hypercapnia: (5) GI bleed: Qualifiers: GI bleed type/associated pathology: unspecified gastrointestinal hemorrhage type Qualified Code(s): K92.2 - Gastrointestinal hemorrhage, unspecified (6) Acute on chronic diastolic (congestive) heart failure: (7) Elevated troponin I level: (8) Type 2 diabetes mellitus: (9) Hypertension: (10) COPD (chronic obstructive pulmonary disease): (11) Seizure disorder: (12) Personal history of traumatic brain injury: DS: Summary Hospital Course Hospital Course: Reason for admission: See ER note and H&P for details. 73 y/o male to ER with SOB. History of TBI and paraplegia who lives at [facility]. Found with respiratory distress and decreased alertness. 82% on room air and placed on NRB. To ER and severe respiratory distress. ER decided to intubate and suctioned a large amount of mucus and food which indicates aspiation. Large emesis of coffee ground material and hgb 7.0 which is down from 13 few months ago. Intubated and admitted. Hospital course: Started vancomycin and aztreonam. Given 2 units PRBC and hgb improved. Started IV protonix. General surgery consulted and no plan for EGD. Patient improved in hospital. Extubated 07/19 and did well. Labs improved. On IV lasix. Noted increased sedation 07/21 and ABG showed elevated CO2. Placed on BiPAP and improved. [place] well and back on home 2 LPM. Discharged back to F in stable condition. Will take doxycycline for pneumonia. REsume other home medication as directed. Time Spent with Patient Time attestation: Total time spent providing and/or coordinating discharge services: Exam Constitutional Vital Signs, click to edit/add: Last Vital Signs Temp 98.2 F 07/22/23 12:00 Pulse 72 07/22/23 14:00 Resp 18 07/22/23 12:00 BP 104/56 07/22/23 12:00 Pulse Ox 96 07/22/23 12:00 O2 Del Method Nasal Cannula 07/22/23 12:00 O2 Flow Rate 2 07/22/23 12:00 FiO2 30 07/21/23 12:00 Documenting provider has reviewed patient's vital signs: yes Common normals: no apparent distress, oriented x3 and alert HENMT Common normals: normocephalic Eye Common normals: PERRL and EOMs intact bilaterally Respiratory Common normals: normal respiratory effort and clear to auscultation bilaterally Cardio Common normals: regular rate, regular rhythm, no gallops, no murmurs and no rub GI Common normals: Normal to inspection, nondistended, normoactive bowel sounds present and non-tender Extremity Common normals: no pedal edema DS: Data Data Completed and Pending Labs on day of discharge: Labs from last 24 hours 07/22/23 07/22/23 07/21/23 12:16 04:02 21:21 WBC 9.4 RBC 4.51 L Hgb 12.9 L Hct 40.8 L MCV 90.5 MCH 28.6 MCHC 31.6 RDW 15.2 H Plt Count 415 MPV 9.2 L Neut % (Auto) 58.7 Lymph % (Auto) 20.2 L [place] % (Auto) 9.6 Eos % (Auto) 10.5 H Baso % (Auto) 0.6 Neut # (Auto) 5.5 Lymph # (Auto) 1.9 [place] # (Auto) 0.9 H Eos # (Auto) 1.0 H Baso # (Auto) 0.1 Abs Immat Gran (auto) 0.04 H Imm/Tot Granulo (auto) 0.4 Sodium 144 Potassium 3.1 L Chloride 105 Carbon Dioxide 35.3 H Anion Gap 6.8 BUN 16.0 Creatinine 0.78 Est GFR ( Amer) >60 Est GFR (Non-Af Amer) >60 BUN/Creatinine Ratio 20.5 Glucose 118 H Calcium 9.5 Total Bilirubin 0.3 AST 33 ALT 55 Alkaline Phosphatase 97 Total Protein 7.4 Albumin 2.1 L Globulin 5.3 Albumin/Globulin Ratio 0.4 POC Glucose 123 H 87 07/21/23 17:28 WBC RBC Hgb Hct MCV MCH MCHC RDW Plt Count MPV Neut % (Auto) Lymph % (Auto) [place] % (Auto) Eos % (Auto) Baso % (Auto) Neut # (Auto) Lymph # (Auto) [place] # (Auto) Eos # (Auto) Baso # (Auto) Abs Immat Gran (auto) Imm/Tot Granulo (auto) Sodium Potassium Chloride Carbon Dioxide Anion Gap BUN Creatinine Est GFR ( Amer) Est GFR (Non-Af Amer) BUN/Creatinine Ratio Glucose Calcium Total Bilirubin AST ALT Alkaline Phosphatase Total Protein Albumin Globulin Albumin/Globulin Ratio POC Glucose 99 Preliminary micro results at discharge 07/17/23 09:20 - Preliminary Blood NO GROWTH AT 36-48 HOURS. FINAL TO FOLLOW. 07/17/23 09:13 Blood Culture Result 1 - Preliminary Blood NO GROWTH AT 36-48 HOURS. FINAL TO FOLLOW. Discharge Plan Discharge Disposition: Xfer SNF Condition: Good Discharge Medications: New quetiapine 25 mg Tablet 75 mg PO QHS Qty: 1 0RF gabapentin 300 mg Capsule 600 mg PO BID Qty: 1 0RF divalproex 125 mg Capsule, Delayed Rel Sprinkle 125 mg PO TID Qty: 1 0RF doxycycline hyclate 100 mg tablet 100 mg PO BID 7 Days Qty: 14 0RF Continued clonidine HCl 0.1 mg tablet 0.1 mg feeding tube BID Rx Instructions: GTUBE baclofen 10 mg tablet 10 mg feeding tube TID Rx Instructions: GTUBE amlodipine 10 mg tablet 10 mg feeding tube DAILY Rx Instructions: G-TUBE acetaminophen [Acetaminophen Extra Strength] 1,000 mg PO .every 4 hours PRN (Reason: pain, severe) Rx Instructions: 1000mg every 4 hours as needed doxazosin 1 mg tablet 1 mg feeding tube .QHS albuterol sulfate 2.5 mg /3 mL (0.083 %) solution for nebulization 2.5 mg inhalation Q2H PRN (Reason: shortness of breath or wheezing) guaifenesin [Mucinex] 600 mg tablet extended release 12hr 600 mg PO Q12H PRN (Reason: congestion) Ensure Original 0.04-1.05 gram-kcal/mL Liquid 30 ea feeding tube CONT Rx Instructions: 70cc/hour cont feeds - 120ml/ free water flushes every 4hrs, check residual every 8hrs aspirin [[place] Aspirin] 81 mg tablet,chewable 81 mg feeding tube DAILY Rx Instructions: GTUBE valproic acid (as sodium salt) 250 mg/5 mL solution 125 mg feeding tube TID Rx Instructions: GTUBE Print Language: Faroese 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 Nursing to call Jing at [facility] upon Discharge at [phone] Forms: Portal Instructions Follow Up Appointments: Follow up with PCP within one week Discharge Date/Time: 07/22/23 15:55 Discharge Location: [facility]
== END 2023-07-22 15:55 | DRG 871 ==
LOC: ER 09:52 → ICU 11:59
PROVIDERS: Internal Medicine; Admitting Provider Internal Medicine; Emergency Provider Emergency Medicine; PCP Family Medicine; Visit Provider Internal Medicine
DX: A41.9 Sepsis, unspecified organism (principal); G82.50 Quadriplegia, unspecified; J69.0 Pneumonitis due to inhalation of food and vomit; J96.01 Acute respiratory failure with hypoxia; R65.21 Severe sepsis with septic shock; R57.1 Hypovolemic shock; J96.02 Acute respiratory failure with hypercapnia; I50.33 Acute on chronic diastolic (congestive) heart failure; K92.2 Gastrointestinal hemorrhage, unspecified; E44.0 Moderate protein-calorie malnutrition; I11.0 Hypertensive heart disease with heart failure; Z66 Do not resuscitate; E11.9 Type 2 diabetes mellitus without complications; D64.9 Anemia, unspecified; F41.9 Anxiety disorder, unspecified; N40.0 Benign prostatic hyperplasia without lower urinary tract symptoms; K21.9 Gastro-esophageal reflux disease without esophagitis; R79.89 Other specified abnormal findings of blood chemistry; J44.9 Chronic obstructive pulmonary disease, unspecified; F03.90 Unspecified dementia, unspecified severity, without behavioral disturbance, psychotic disturbance, mood disturbance, and anxiety; G40.909 Epilepsy, unspecified, not intractable, without status epilepticus; Z87.440 Personal history of urinary (tract) infections; Z93.1 Gastrostomy status; Z87.820 Personal history of traumatic brain injury; Z68.25 Body mass index [BMI] 25.0-25.9, adult; Z79.82 Long term (current) use of aspirin; Z79.899 Other long term (current) drug therapy; Z88.0 Allergy status to penicillin; Z88.6 Allergy status to analgesic agent; Z87.01 Personal history of pneumonia (recurrent)
CPT/HCPCS: 31500; 36415; 36430; 36600; 51702; 71045; 80048; 80053; 80202; 82805; 82948; 84484; 85014; 85018; 85025; 86850; 86900; 86901; 87040; 87070; 87635; 87811; 93005; 93306; 94002; 94003; 94640; 94660; 94761; 96365; 96366; 96367; 96368; 96375; 96376; 99285; J3370; J3480; P9016

== ENCOUNTER 2023-07-26 15:21 | Inpatient (IN) | payer MEDICARE, MEDICAID, SELFPAY ==
[2023-07-26] VITALS (64 sets, daily range): BP systolic 56–137; BP diastolic 35–80; PULSE 67–130; RESP 12–36; TEMP 37.1–39.1; O2SAT 68–100; BMI 24.0; BMI 20.1
--- NOTE | 2023-07-26 15:22 | XR_ITS ---
The [address] [address] Patient Name: SHELBY VALERIO MRN: [id number] date: 1950 Sex: M Assigned Patient Location: ER Current Patient Location: ED.MAIN Accession/Order Number: [id number] Exam Date: 07/26/2023 15:30 Report Date: 07/26/2023 15:43 At the request of: JODI CHIN Procedure: XR chest 1V EXAMINATION: XR chest 1V 07/26/2023 12:41 PM PST HISTORY: sob TECHNIQUE: Single frontal view of the chest acquired. COMPARISONS: Chest x-rays 07/21/2023 and 07/19/2023. FINDINGS: Lines/tubes/other: None. Heart and mediastinum: Stable. Bones: No acute osseous abnormality. Lungs: There is pulmonary vascular engorgement and interstitial septal thickening, similar compared with 07/21/2023. Bibasilar opacification is moderately improved. Pleura: There is no significant pleural effusion or pneumothorax. Other: None. XR/XR chest 1V IMPRESSION: 1. Findings suggestive of moderate pulmonary edema, similar. 2. Improving bibasilar opacification. 3. No new or worsening cardiopulmonary abnormality demonstrated. Electronically authenticated by: TOMY HENNESSY Date: 07/26/2023 15:43
--- NOTE | 2023-07-26 15:22 | ECG_ITS ---
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
--- OUTSIDE RECORDS SUMMARY | 2023-07-26 15:33 | XMS_ITS | CCD ---
Author Name Unknown Address [address] [place] [address] Organization [facility] Care Team Providers Care Armature Rewinder Name Role Phone REQUEST, NONE LISTED Primary Care Unavailable TD HURST Attending Unavailable TD HURST Consulting Unavailable TD HURST Admitting Unavailable Guilherme MCLAIN, [facility] Primary Care Provider [phone] [facility] Unavailable MELODIE NIXON Referring Unavailable [facility] Referring Unavailable GUILHERME, [facility] Primary Care Unavailable SCOUT [facility] Referring Unavailable [facility] Primary Care Unavailable ULISES ., DR [...] Facility (2 sources) Propoxyphene Drug Allergy [facility] Repository (1 source) Penicillins Drug allergy (disorder) 01-30-2014 [facility] Rep[facility] Problems Active Problems Problem Classification Problem [...] 06-25-2022 Chronic Other aftercare (1 source) 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 Brittanie Burns Basophils/100 WBC (Bld) 0.8 % Normal 0.2-2.0 [facility] Comment on above: Performed By: #### V ITB1T #### [facility] [address] [place] [address] Dr. Brittanie Burns EO # 0.6 103/ul Normal 0.0-0.7 [facility] Comment on above: Performed By: #### V ITB1T #### [facility] [address] [place] [address] Dr. Brittanie Burns Eosinophils/100 WBC (Bld) 6.6 % Normal 0.9-7.0 [facility] Comment on above: Performed By: #### V ITB1T #### [facility] [address] [place] [address] Dr. Brittanie Burns Erythrocyte distribution width (RBC) [Ratio] 14.8 % Normal 11.0-15.0 [facility] Comment on above: Performed By: #### V ITB1T #### [facility] [address] [place] [address] Dr. Brittanie Burns Hematocrit (Bld) [Volume fraction] 35.6 % Critically low 42.0-54.0 [facility] Comment on above: Performed By: #### V ITB1T #### [facility] [address] [place] [address] Dr. Brittanie Burns Hemoglobin (Bld) [Mass/Vol] 11.7 g/dL Critically low 14.0-18.0 [facility] Comment on above: Performed By: #### V ITB1T #### [facility] [address] [place] [address] Dr. Brittanie Burns IG # 0.04 10e3/ul Critically high 0.00-0.03 [facility] Comment on above: Performed By: #### V ITB1T #### [facility] [address] [place] [address] Dr. Brittanie Burns IG % 0.5 % Normal 0.0-0.5 [facility] Comment on above: Performed By: #### V ITB1T #### [facility] [address] [place] [address] Dr. Brittanie Burns LYMPH # 2.0 103/ul Normal 1.2-3.8 [facility] Comment on above: Performed By: #### V ITB1T #### [facility] [address] [place] [address] Dr. Brittanie Burns Lymphocytes/100 WBC (Bld) 22.7 % Normal 20.5-60.0 [facility] Comment on above: Performed By: #### V ITB1T #### [facility] [address] [place] [address] Dr. Brittanie Burns MANUAL DIFF REQ NO Normal [facility] Comment on above: Performed By: #### V ITB1T #### [facility] [address] [place] [address] Dr. Brittanie Burns MCH (RBC) [Entitic mass] 30.8 pg Normal 25.9-34.0 [facility] Comment on above: Performed By: #### V ITB1T #### [facility] [address] [place] [address] Dr. Brittanie Burns MCHC (RBC) [Mass/Vol] 32.9 g/dL Normal 29.9-35.2 [facility] Comment on above: Performed By: #### V ITB1T #### [facility] [address] [place] [address] Dr. Brittanie Burns MCV (RBC) [Entitic vol] 93.7 fL Normal 80.0-94.0 [facility] Comment on above: Performed By: #### V ITB1T #### [facility] [address] [place] [address] Dr. Brittanie Burns MONO # 1.1 103/ul Critically high 0.3-0.8 [facility] Comment on above: Performed By: #### V ITB1T #### [facility] [address] [place] [address] Dr. Brittanie Burns Monocytes/100 WBC (Bld) 12.7 % Critically high 1.7-12.0 [facility] Comment on above: Performed By: #### V ITB1T #### [facility] [address] [address] [address] Brittanie Burns NEUT # 4.9 103/ul Normal 1.4-6.5 [facility] Comment on above: Performed By: #### V ITB1T #### [facility] [address] [place] [address] Dr. Brittanie Burns Neutrophils/100 WBC (Bld) 56.7 % Normal 43.0-75.0 [facility] Comment on above: Performed By: #### V ITB1T #### [facility] [address] [place] [address] Dr. Brittanie Burns Platelet mean volume (Bld) [Entitic vol] 9.2 fL Critically low 9.5-13.5 [facility] Comment on above: Performed By: #### V ITB1T #### [facility] [address] [place] [address] Dr. Brittanie Burns PLT 343 103/ul Normal 150-450 [facility] Comment on above: Performed By: #### V ITB1T #### [facility] [address] [place] [address] Dr. Brittanie Burns RBC 3.80 106/ul Critically low 4.70-6.10 [facility] Comment on above: Performed By: #### V ITB1T #### [facility] [address] [place] [address] Dr. Brittanie Burns WBC 8.7 103/ul Normal 4.0-11.0 [facility] Comment on above: Performed By: #### V ITB1T #### [facility] [address] [place] [address] Dr. Brittanie Burns GLYCOHEMOGLOBIN A1Con 2022 ADA RECOMMENDATION SEE BELOW Normal [facility] Comment on above: Result Comment: ADA RECOMMENDED LIMIT 4.0 - 6.0 ADA THERAPEUTIC TARGET < 7.0 ACTION SUGGESTED > 7.0 Performed By: #### D RUGRPD #### [facility] [address] [place] [address] Dr. Brittanie Burns Glucose [Mass/Vol] 117 mg/dL Normal [facility] Comment on above: Performed By: #### D RUGRPD #### [facility] [address] [place] [address] Dr. Brittanie Burns HbA1c (Bld) [Mass fraction] 5.7 % Normal 4.5-6.2 [facility] Comment on above: Performed By: #### D RUGRPD #### [facility] [address] [place] [address] Dr. Brittanie Burns PROF 14(COMP METB)on 023 Albumin [Mass/Vol] 2.8 g/dL Critically low 3.4-5.0 [facility] Comment on above: Performed By: #### C BC #### [facility] [address] [place] [address] Dr. Brittanie Burns Albumin/Globulin [Mass ratio] 0.6 {ratio} Normal [facility] Comment on above: Performed By: #### C BC #### [facility] [address] [place] [address] Dr. Brittanie Burns ALP [Catalytic activity/Vol] 68 U/L Normal 46-116 [facility] Comment on above: Performed By: #### C BC #### [facility] [address] [place] [address] Dr. Brittanie Burns ALT [Catalytic activity/Vol] 18 U/L Normal 16-63 [facility] Comment on above: Performed By: #### C BC #### [facility] [address] [place] [address] Dr. Brittanie Burns Anion gap [Moles/Vol] 11.4 mmol/L Normal [facility] Comment on above: Performed By: #### C BC #### [facility] [address] [place] [address] Dr. Brittanie Burns AST [Catalytic activity/Vol] 22 U/L Normal 15-37 [facility] Comment on above: Performed By: #### C BC #### [facility] [address] [place] [address] Dr. Brittanie Burns Bilirubin [Mass/Vol] 0.3 mg/dL Normal 0.2-1.0 [facility] Comment on above: Performed By: #### C BC #### [facility] [address] [address] [address] Brittanie Burns Calcium [Mass/Vol] 9.5 mg/dL Normal 8.5-10.1 [facility] Comment on above: Performed By: #### C BC #### [facility] [address] [address] [address] Brittanie Burns Chloride [Moles/Vol] 102 mmol/L Normal 98-107 [facility] Comment on above: Performed By: #### C BC #### [facility] [address] [address] [address] Brittanie Burns CO2 [Moles/Vol] 31.3 mmol/L Normal 21.0-32.0 [facility] Comment on above: Performed By: #### C BC #### [facility] [address] [place] [address] Dr. Brittanie Burns Creatinine [Mass/Vol] 1.18 mg/dL Normal 0.70-1.30 [facility] Comment on above: Performed By: #### C BC #### [facility] [address] [place] [address] Dr. Brittanie Burns EGFR-AF LAO >60 Normal >=60 [facility] Comment on above: Performed By: #### C BC #### [facility] [address] [place] [address] Dr. Brittanie Burns EGFR-NON AF LAO >60 Normal >=60 [facility] Comment on above: Performed By: #### C BC #### [facility] [address] [place] [address] Dr. Brittanie Burns Globulin (S) [Mass/Vol] 4.9 g/dL Normal [facility] Comment on above: Performed By: #### C BC #### [facility] [address] [place] [address] Dr. Brittanie Burns Glucose [Mass/Vol] 133 mg/dL Critically high 74-106 [facility] Comment on above: Performed By: #### C BC #### [facility] [address] [place] [address] Dr. Brittanie Burns Potassium [Moles/Vol] 3.7 mmol/L Normal 3.5-5.1 [facility] Comment on above: Performed By: #### C BC #### [facility] [address] [address] [address] Brittanie Burns Protein [Mass/Vol] 7.7 g/dL Normal 6.4-8.2 [facility] Comment on above: Performed By: #### C BC #### [facility] [address] [address] [address] Brittanie Burns Sodium [Moles/Vol] 141 mmol/L Normal 136-145 [facility] Comment on above: Performed By: #### C BC #### [facility] [address] [place] [address] Dr. Brittanie Burns Urea nitrogen [Mass/Vol] 25.0 mg/dL Critically high 7.0-18.0 [facility] Comment on above: Performed By: #### C BC #### [facility] [address] [place] [address] Dr. Brittanie Burns Urea nitrogen/Creatinine [Mass ratio] 21.2 mg/mg Normal [facility] Comment on above: Performed By: #### C BC #### [facility] [address] [place] [address] Dr. Brittanie Burns TSHon 12-21-2022 TSH 2.348 uIU/mL Normal 0.358-3.740 [facility] Comment on above: Performed By: #### B 12FOL #### [facility] [address] [place] [address] Dr. Brittanie Burns VITAMIN D 25 OHon 12-21-2022 VIT D 25-OH 41.1 ng/mL Normal [facility] Comment on above: Performed By: #### B 12FOL #### [facility] [address] [place] [address] Dr. Brittanie Bruns VIT D RANGES SEE BELOW Normal [facility] Comment on above: Result Comment: <20 ng/mL Vit D deficient 20 - <30 ng/mL Vit D insufficient 30 - 100 ng/mL Vit D sufficient >100 ng/mL Potential Toxicity Performed By: #### B 12FOL #### [facility] [address] [place] [address] Dr. Brittanie Burns PROF 14(COMP METB)on 023 Albumin [Mass/Vol] 2.7 g/dL Critically low 3.4-5.0 [facility] Comment on above: Performed By: #### C BC #### [facility] [address] [place] [address] Dr. Brittanie Burns Albumin/Globulin [Mass ratio] 0.6 {ratio} Normal [facility] Comment on above: Performed By: #### C BC #### [facility] [address] [place] [address] Dr. Brittanie Burns ALP [Catalytic activity/Vol] 68 U/L Normal 46-116 [facility] Comment on above: Performed By: #### C BC #### [facility] [address] [place] [address] Dr. Brittanie Burns ALT [Catalytic activity/Vol] 27 U/L Normal 16-63 [facility] Comment on above: Performed By: #### C BC #### [facility] [address] [place] [address] Dr. Brittanie Burns Anion gap [Moles/Vol] 12.3 mmol/L Normal [facility] Comment on above: Performed By: #### C BC #### [facility] [address] [place] [address] Dr. Brittanie Burns AST [Catalytic activity/Vol] 40 U/L Critically high 15-37 [facility] Comment on above: Performed By: #### C BC #### [facility] [address] [place] [address] Dr. Brittanie Burns Bilirubin [Mass/Vol] 0.2 mg/dL Normal 0.2-1.0 [facility] Comment on above: Performed By: #### C BC #### [facility] [address] [place] [address] Dr. Brittanie Burns Calcium [Mass/Vol] 10.0 mg/dL Normal 8.5-10.1 [facility] Comment on above: Performed By: #### C BC #### [facility] [address] [address] [address] Brittanie Burns Chloride [Moles/Vol] 102 mmol/L Normal 98-107 [facility] Comment on above: Performed By: #### C BC #### [facility] [address] [address] [address] Brittanie Burns CO2 [Moles/Vol] 32.2 mmol/L Critically high 21.0-32.0 [facility] Comment on above: Performed By: #### C BC #### [facility] [address] [address] [address] Brittanie Burns Creatinine [Mass/Vol] 1.09 mg/dL Normal 0.70-1.30 [facility] Comment on above: Performed By: #### C BC #### [facility] [address] [place] [address] Dr. Brittanie Burns EGFR-AF LAO >60 Normal >=60 [facility] Comment on above: Performed By: #### C BC #### [facility] [address] [place] [address] Dr. Brittanie Burns EGFR-NON AF LAO >60 Normal >=60 [facility] Comment on above: Performed By: #### C BC #### [facility] [address] [place] [address] Dr. Brittanie Burns Globulin (S) [Mass/Vol] 4.9 g/dL Normal [facility] Comment on above: Performed By: #### C BC #### [facility] [address] [place] [address] Dr. Brittanie Burns Glucose [Mass/Vol] 98 mg/dL Normal 74-106 [facility] Comment on above: Performed By: #### C BC #### [facility] [address] [place] [address] Dr. Brittanie Burns Potassium [Moles/Vol] 4.5 mmol/L Normal 3.5-5.1 [facility] Comment on above: Performed By: #### C BC #### [facility] [address] [place] [address] Dr. Brittanie Burns Protein [Mass/Vol] 7.6 g/dL Normal 6.4-8.2 [facility] Comment on above: Performed By: #### C BC #### [facility] [address] [address] [address] Brittanie Burns Sodium [Moles/Vol] 142 mmol/L Normal 136-145 [facility] Comment on above: Performed By: #### C BC #### [facility] [address] [address] [address] Brittanie Burns Urea nitrogen [Mass/Vol] 26.0 mg/dL Critically high 7.0-18.0 [facility] Comment on above: Performed By: #### C BC #### [facility] [address] [address] [address] Brittanie Burns Urea nitrogen/Creatinine [Mass ratio] 23.9 mg/mg Normal [facility] Comment on above: Performed By: #### C BC #### [facility] [address] [address] [address] Brittanie Burns [facility] 2022 SED RATE 64 mm/hr Critically high <=20 [facility] Comment on above: Performed By: #### C BC #### [facility] [address] [address] [address] Brittanie Burns URIC ACID SERUMon 11-18-2022 Urate [Mass/Vol] 4.4 mg/dL Normal 3.5-7.2 [facility] Comment on above: Performed By: #### C BC #### [facility] [address] [address] [address] Brittanie Burns Basic Metabolic Panelon 10-22 Anion gap [Moles/Vol] 7 mmol/L Low 9 - 17 mmol/L [facility] Calcium [Mass/Vol] 9.8 mg/dL 8.6 - 10. 4 mg/dL [facility] Chloride [Moles/Vol] 99 mmol/L 98 - 10 7 mmol/L [facility] CO2 [Moles/Vol] 31 mmol/L 20 - 31 mmol/L [facility] Creatinine [Mass/Vol] 1.36 mg/dL High 0.70 - 1.20 mg/dL [facility] GFR/1.73 sq M.predicted MDRD (S/P/Bld) [Vol rate/Area] 55 mL/min/{1.73_m2} Low - PINF [facility] Comment on above: These results are [...] 114 mg/dL High 70 - 99 mg/dL [facility] Interpretation and review of laboratory results Abnormal [facility] Potassium [Moles/Vol] 4.5 mmol/L 3.7 - 5.3 mmol/L [facility] Sodium [Moles/Vol] 137 mmol/L 135 - 144 mmol/L [facility] Urea nitrogen [Mass/Vol] 40 mg/dL High 8 - 23 mg/dL [facility] Urea nitrogen/Creatinine (Bld) [Mass ratio] 29 High 9 - 20 [facility] Basic Metabolic Profon 10-31 Anion gap [Moles/Vol] 7 mmol/L Low 9-17 [facility] Comment on above: Performed By: #### B MP #### [facility] [address] [place] [address] [employer] Supervisor: Oscar Watkins MD BUN/CRE Ratio 29 High 9-20 [facility] Comment on above: Performed By: #### B MP #### [facility] [address] [place] [address] [employer] Supervisor: Oscar Watkins MD Calcium [Mass/Vol] 9.8 mg/dL Normal 8.6-10.4 [facility] Comment on above: Performed By: #### B MP #### [facility] [address] [place] [address] [employer] Supervisor: Oscar Watkins MD Chloride [Moles/Vol] 99 mmol/L Normal 98-107 [facility] Comment on above: Performed By: #### B MP #### [facility] [address] [place] [address] [employer] Supervisor: Oscar Watkins MD CO2 [Moles/Vol] 31 mmol/L Normal 20-31 [facility] Comment on above: Performed By: #### B MP #### [facility] [address] [place] [address] [employer] Supervisor: Oscar Watkins MD Creatinine [Mass/Vol] 1.36 mg/dL High 0.70-1.20 [facility] Comment on above: Performed By: #### B MP #### [facility] [address] [place] [address] [employer] Supervisor: Oscar Watkins MD GFR/1.73 sq M.predicted among non-blacks MDRD (S/P/Bld) [Vol rate/Area] 55 mL/min/{1.73_m2} Low >60 [facility] Comment on above: Result Comment: These results [...] secretion. Performed By: #### B MP #### [facility] [address] [place] [address] [employer] Supervisor: Oscar Watkins MD Glucose [Mass/Vol] 114 mg/dL High 70-99 [facility] Comment on above: Performed By: #### B MP #### [facility] [address] [place] [id number] [employer] Supervisor: Oscar Watkins MD Potassium [Moles/Vol] 4.5 mmol/L Normal 3.7-5.3 [facility] Comment on above: Performed By: #### B MP #### [facility] [address] [place], [place] [id number] [employer] Supervisor: Oscar Watkins MD Sodium [Moles/Vol] 137 mmol/L Normal 135-144 [facility] Comment on above: Performed By: #### B MP #### [facility] [address] [place], [place] [id number] [employer] Supervisor: Oscar Watkins MD Urea nitrogen [Mass/Vol] 40 mg/dL High 8- [facility] Comment on above: Performed By: #### B MP #### [facility] [address] [place], [place] [id number] [employer] Supervisor: Oscar Watkins MD Lipid Panelon 10-26-2022 Cholesterol [Mass/Vol] 146 mg/dL NINF - 200 mg/dL [facility] Comment on above: Cholesterol Guidelines: <200 Desirable 200-240 Borderline >240 Undesirable Cholesterol in HDL [Mass/Vol] 24 mg/dL Low 40 - PINF mg/dL [facility] Comment on above: HDL Guidelines: <40 Undesirable 40-59 Borderline >59 Desirable Cholesterol in LDL [Mass/Vol] 97 mg/dL 0 - 130 mg/dL [facility] Comment on above: LDL Guidelines: <100 Desirable 100-129 Near to/above Desirable 130-159 Borderline >159 Undesirable Direct (measured) LDL and calculated LDL are not interchangeable tests. Cholesterol.total/Chol esterol in HDL [Mass ratio] 6.1 {ratio} High NINF - 5 [facility] Interpretation and review of laboratory results Abnormal [facility] Triglyceride [Mass/Vol] 123 mg/dL NINF - 150 mg/dL [facility] Comment on above: Triglyceride Guidelines: <150 Desirable 150-199 Borderline 200-499 High >499 Very high Based on AHA Guidelines for fasting triglyceride, April 2012. [facility] Lipid Profileon 10-26-2022 Cholesterol [Mass/Vol] 146 mg/dL Normal <200 [facility] Comment on above: Result Comment: Cholesterol Guidelines: <200 Desirable 200-240 Borderline >240 Undesirable Performed By: #### L IPR #### [facility] [address] [facility] [place] [address] [employer] Supervisor: Moo Calero MD Cholesterol in HDL [Mass/Vol] 24 mg/dL Low >40 [facility] Comment on above: Result Comment: HDL Guidelines: <40 Undesirable 40-59 Borderline >59 Desirable Performed By: #### L IPR #### [facility] [address] [place] [address] [employer] Supervisor: Moo Calero MD Cholesterol in LDL [Mass/Vol] 97 mg/dL Normal 0-130 [facility] Comment on above: Result Comment: LDL Guidelines: <100 Desirable 100-129 Near to/above Desirable 130-159 Borderline >159 Undesirable Direct (measured) LDL and calculated LDL are not interchangeable tests. Performed By: #### L IPR #### [facility] [address] [place] [address] [employer] Supervisor: Moo Calero MD Cholesterol.total/Chol esterol in HDL [Mass ratio] 6.1 {ratio} High <5 [facility] Comment on above: Performed By: #### L IPR #### [facility] [address] [place] [address] [employer] Supervisor: Moo Calero MD Triglyceride [Mass/Vol] 123 mg/dL Normal <150 [facility] Comment on above: Result Comment: Triglyceride Guidelines: <150 Desirable 150-199 Borderline 200-499 High >499 Very high Based on AHA Guidelines for fasting triglyceride, April 2012. Performed By: #### L IPR #### [facility] [address] [place] [address] [employer] Operations Supervisor: Moo Calero MD Basic Metabolic Profon 10-24 Anion gap [Moles/Vol] 13 mmol/L Normal 9-17 [facility] Comment on above: Performed By: #### B MP #### [facility] [address] [place], [place] [id number] [employer] Supervisor: Oscar Watkins MD BUN/CRE Ratio 21 High 9-20 [facility] Comment on above: Performed By: #### B MP #### [facility] [address] [place] [id number] [employer] Supervisor: Oscar Watkins MD Calcium [Mass/Vol] 9.8 mg/dL Normal 8.6-10.4 [facility] Comment on above: Performed By: #### B MP #### [facility] [address] [place] [id number] [employer] Supervisor: Oscar Watkins MD Chloride [Moles/Vol] 109 mmol/L High 98-107 [facility] Comment on above: Performed By: #### B MP #### [facility] [address] [place], [place] [id number] [employer] Supervisor: Oscar Watkins MD CO2 [Moles/Vol] 27 mmol/L Normal 20-31 [facility] Comment on above: Performed By: #### B MP #### [facility] [address] [place], [place] [id number] [employer] Supervisor: Oscar Watkins MD Creatinine [Mass/Vol] 1.68 mg/dL High 0.70-1.20 [facility] Comment on above: Performed By: #### B MP #### [facility] [address] [place], [place] [id number] [employer] Supervisor: Oscar Watkins MD GFR/1.73 sq M.predicted among non-blacks MDRD (S/P/Bld) [Vol rate/Area] 43 mL/min/{1.73_m2} Low >60 [facility] Comment on above: Result Comment: These results [...] secretion. Performed By: #### B MP #### [facility] [address] [place], [place] [id number] [employer] Supervisor: Oscar Watkins MD Glucose [Mass/Vol] 106 mg/dL High 70-99 [facility] Comment on above: Performed By: #### B MP #### [facility] [address] [place], [place] [id number] [employer] Supervisor: Oscar Watkins MD Potassium [Moles/Vol] 3.6 mmol/L Low 3.7-5.3 [facility] Comment on above: Performed By: #### B MP #### [address] [place], [place] [id number] [employer] Supervisor: Oscar Watkins MD Sodium [Moles/Vol] 149 mmol/L High 135-144 [facility] Comment on above: Performed By: #### B MP #### [address] [place], [place] [id number] [employer] Supervisor: Oscar Watkins MD Urea nitrogen [Mass/Vol] 35 mg/dL High 8-23 [facility] Comment on above: Performed By: #### B MP #### [facility] [address] [place] [address] Dr. [place], [place] [id number] [employer] Supervisor: Oscar Watkins MD CBC AUTO DIFFon 10-21-2022 BASO # 0.1 103/ul Normal 0.0-0.1 [facility] Comment on above: Performed By: #### C BC #### [facility] [address] [place], [place] [address] Dr. Brittanie Burns Basophils/100 WBC (Bld) 0.6 % Normal 0.2-2.0 [facility] Comment on above: Performed By: #### C BC #### [facility] [address] [place] [address] Dr. Brittanie Burns EO # 0.4 103/ul Normal 0.0-0.7 [facility] Comment on above: Performed By: #### C BC #### [facility] [address] [place] [address] Dr. Brittanie Burns Eosinophils/100 WBC (Bld) 3.9 % Normal 0.9-7.0 [facility] Comment on above: Performed By: #### C BC #### [facility] [address] [place] [address] Dr. Brittanie Burns Erythrocyte distribution width (RBC) [Ratio] 13.5 % Normal 11.0-15.0 [facility] Comment on above: Performed By: #### C BC #### [facility] [address] [place] [address] Dr. Brittanie Burns Hematocrit (Bld) [Volume fraction] 38.1 % Critically low 42.0-54.0 [facility] Comment on above: Performed By: #### C BC #### [facility] [address] [place] [address] Dr. Brittanie Burns Hemoglobin (Bld) [Mass/Vol] 13.2 g/dL Critically low 14.0-18.0 [facility] Comment on above: Performed By: #### C BC #### [facility] [address] [place] [address] Dr. Brittanie Burns IG # 0.02 10e3/ul Normal 0.00-0.03 [facility] Comment on above: Performed By: #### C BC #### [facility] [address] [place] [address] Dr. Brittanie Bursn IG % 0.2 % Normal 0.0-0.5 [facility] Comment on above: Performed By: #### C BC #### [facility] [address] [place] [address] Dr. Brittanie Burns LYMPH # 2.2 103/ul Normal 1.2-3.8 [facility] Comment on above: Performed By: #### C BC #### [facility] [address] [place] [address] Dr. Brittanie Burns Lymphocytes/100 WBC (Bld) 23.4 % Normal 20.5-60.0 [facility] Comment on above: Performed By: #### C BC #### [facility] [address] [place] [address] Dr. Brittanie Burns MANUAL DIFF REQ NO Normal [facility] Comment on above: Performed By: #### C BC #### [facility] [address] [place] [address] Dr. Brittanie Burns MCH (RBC) [Entitic mass] 30.6 pg Normal 25.9-34.0 [facility] Comment on above: Performed By: #### C BC #### [facility] [address] [place] [address] Dr. Brittanie Burns MCHC (RBC) [Mass/Vol] 34.6 g/dL Normal 29.9-35.2 [facility] Comment on above: Performed By: #### C BC #### [facility] [address] [place] [address] Dr. Brittanie Burns MCV (RBC) [Entitic vol] 88.2 fL Normal 80.0-94.0 [facility] Comment on above: Performed By: #### C BC #### [facility] [address] [place] [address] Dr. Brittanie Burns MONO # 1.3 103/ul Critically high 0.3-0.8 [facility] Comment on above: Performed By: #### C BC #### [facility] [address] [place] [address] Dr. Brittanie Burns Monocytes/100 WBC (Bld) 13.5 % Critically high 1.7-12.0 [facility] Comment on above: Performed By: #### C BC #### [facility] [address] [place] [address] Dr. Brittanie Burns NEUT # 5.6 103/ul Normal 1.4-6.5 [facility] Comment on above: Performed By: #### C BC #### [facility] [address] [address] [address] Brittanie Burns Neutrophils/100 WBC (Bld) 58.4 % Normal 43.0-75.0 [facility] Comment on above: Performed By: #### C BC #### [facility] [address] [address] [address] Brittanie Burns Platelet mean volume (Bld) [Entitic vol] 9.3 fL Critically low 9.5-13.5 [facility] Comment on above: Performed By: #### C BC #### [facility] [address] [address] [address] Brittanie Burns PLT 297 103/ul Normal 150-450 [facility] Comment on above: Performed By: #### C BC #### [facility] [address] [address] [address] Brittanie Burns RBC 4.32 106/ul Critically low 4.70-6.10 [facility] Comment on above: Performed By: #### C BC #### [facility] [address] [address] [address] Brittanie Burns WBC 9.6 103/ul Normal 4.0-11.0 [facility] Comment on above: Performed By: #### C BC #### [facility] [address] [address] [address] Brittanie Burns CULTURE BLOODon 10-21-2022 Microscopic [...] >=8 R F Clindamycin <=0.25 S F Quinupristin/Dalfopr istin <=0.25 S F Linezolid 2 S F Vancomycin <=0.5 S F Tetracycline <=1 S F Rifampicin <=0.5 S F Trimethoprim/Sulfame thoxazole 40 S F Normal [facility] Comment on above: Performed By: #### B LDCX2 #### [facility] [address] [place] [address] Dr. Brittanie Burns PROF 14(COMP METB)on 023 Albumin [Mass/Vol] 3.1 g/dL Critically low 3.4-5.0 [facility] Comment on above: Performed By: #### D RUGRPD #### [facility] [address] [place] [address] Dr. Brittanie Burns Albumin/Globulin [Mass ratio] 0.8 {ratio} Normal [facility] Comment on above: Performed By: #### D RUGRPD #### [facility] [address] [place] [address] Dr. Brittanie Burns ALP [Catalytic activity/Vol] 76 U/L Normal 46-116 [facility] Comment on above: Performed By: #### D RUGRPD #### [facility] [address] [place] [address] Dr. Brittanie Burns ALT [Catalytic activity/Vol] 16 U/L Normal 16-63 [facility] Comment on above: Performed By: #### D RUGRPD #### [facility] [address] [place] [address] Dr. Brittanie Burns Anion gap [Moles/Vol] 13.5 mmol/L Normal Th [facility] Comment on above: Performed By: #### D RUGRPD #### [facility] [address] [place] [address] Dr. Brittanie Burns AST [Catalytic activity/Vol] 14 U/L Critically low 15-37 [facility] Comment on above: Performed By: #### D RUGRPD #### [facility] [address] [place] [address] Dr. Brittanie Burns Bilirubin [Mass/Vol] 0.6 mg/dL Normal 0.2-1.0 [facility] Comment on above: Performed By: #### D RUGRPD #### [facility] [address] [place] [address] Dr. Brittanie Burns Calcium [Mass/Vol] 8.9 mg/dL Normal 8.5-10.1 [facility] Comment on above: Performed By: #### D RUGRPD #### [facility] [address] [address] [address] Brittanie Burns Chloride [Moles/Vol] 107 mmol/L Normal 98-107 [facility] Comment on above: Performed By: #### D RUGRPD #### [facility] [address] [address] [address] Brittanie Burns CO2 [Moles/Vol] 26.9 mmol/L Normal 21.0-32.0 [facility] Comment on above: Performed By: #### D RUGRPD #### [facility] [address] [place] [address] Dr. Brittanie Burns Creatinine [Mass/Vol] 2.02 mg/dL Critically high 0.70-1.30 [facility] Comment on above: Performed By: #### D RUGRPD #### [facility] [address] [place] [address] Dr. Brittanie Burns EGFR-AF LAO 40 mL/min/1.73m2 Critically low >=60 [facility] Comment on above: Performed By: #### D RUGRPD #### [facility] [address] [place] [address] Dr. Brittanie Burns EGFR-NON AF LAO 33 mL/min/1.73m2 Critically low >=60 [facility] Comment on above: Performed By: #### D RUGRPD #### [facility] [address] [place] [address] Dr. Brittanie Burns Globulin (S) [Mass/Vol] 3.7 g/dL Normal [facility] Comment on above: Performed By: #### D RUGRPD #### [facility] [address] [place] [address] Dr. Brittanie Burns Glucose [Mass/Vol] 95 mg/dL Normal 74-106 [facility] Comment on above: Performed By: #### D RUGRPD #### [facility] [address] [address] [address] Brittanie Burns Potassium [Moles/Vol] 3.4 mmol/L Critically low 3.5-5.1 [facility] Comment on above: Performed By: #### D RUGRPD #### [facility] [address] [place] [address] Dr. Brittanie Burns Protein [Mass/Vol] 6.8 g/dL Normal 6.4-8.2 [facility] Comment on above: Performed By: #### D RUGRPD #### [facility] [address] [place] [address] Dr. Brittanie Burns Sodium [Moles/Vol] 144 mmol/L Normal 136-145 [facility] Comment on above: Performed By: #### D RUGRPD #### [facility] [address] [place] [address] Dr. Brittanie Burns Urea nitrogen [Mass/Vol] 25.0 mg/dL Critically high 7.0-18.0 [facility] Comment on above: Performed By: #### D RUGRPD #### [facility] [address] [place] [address] Dr. Brittanie Burns Urea nitrogen/Creatinine [Mass ratio] 12.4 mg/mg Normal [facility] Comment on above: Performed By: #### D RUGRPD #### [facility] [address] [place] [address] Dr. Brittanie Burns CBC AUTO DIFFon 10-20-2022 BASO # 0.1 103/ul Normal 0.0-0.1 [facility] Comment on above: Performed By: #### D RUGRPD #### [facility] [address] [place] [address] Dr. Brittanie Burns Basophils/100 WBC (Bld) 0.7 % Normal 0.2-2.0 [facility] Comment on above: Performed By: #### D RUGRPD #### [facility] [address] [place] [address] Dr. Brittanie Burns EO # 0.3 103/ul Normal 0.0-0.7 [facility] Comment on above: Performed By: #### D RUGRPD #### [facility] [address] [address] [address] Brittanie Burns Eosinophils/100 WBC (Bld) 2.7 % Normal 0.9-7.0 [facility] Comment on above: Performed By: #### D RUGRPD #### [facility] [address] [place] [address] Dr. Brittanie Burns Erythrocyte distribution width (RBC) [Ratio] 13.4 % Normal 11.0-15.0 [facility] Comment on above: Performed By: #### D RUGRPD #### [facility] [address] [place] [address] Dr. Brittanie Burns Hematocrit (Bld) [Volume fraction] 39.2 % Critically low 42.0-54.0 [facility] Comment on above: Performed By: #### D RUGRPD #### [facility] [address] [place] [address] Dr. Brittanie Burns Hemoglobin (Bld) [Mass/Vol] 13.7 g/dL Critically low 14.0-18.0 [facility] Comment on above: Performed By: #### D RUGRPD #### [facility] [address] [place] [address] Dr. Brittanie Burns IG # 0.04 10e3/ul Critically high 0.00-0.03 [facility] Comment on above: Performed By: #### D RUGRPD #### [facility] [address] [place] [address] Dr. Brittanie Burns IG % 0.4 % Normal 0.0-0.5 [facility] Comment on above: Performed By: #### D RUGRPD #### [facility] [address] [place] [address] Dr. Brittanie Burns LYMPH # 2.0 103/ul Normal 1.2-3.8 [facility] Comment on above: Performed By: #### D RUGRPD #### [facility] [address] [place] [address] Dr. Brittanie Burns Lymphocytes/100 WBC (Bld) 19.9 % Critically low 20.5-60.0 [facility] Comment on above: Performed By: #### D RUGRPD #### [facility] [address] [place] [address] Dr. Brittanie Burns MANUAL DIFF REQ NO Normal [facility] Comment on above: Performed By: #### D RUGRPD #### [facility] [address] [place] [address] Dr. Brittanie Burns MCH (RBC) [Entitic mass] 30.7 pg Normal 25.9-34.0 [facility] Comment on above: Performed By: #### D RUGRPD #### [facility] [address] [place] [address] Dr. Brittanie Burns MCHC (RBC) [Mass/Vol] 34.9 g/dL Normal 29.9-35.2 [facility] Comment on above: Performed By: #### D RUGRPD #### [facility] [address] [place] [address] Dr. Brittanie Burns MCV (RBC) [Entitic vol] 87.9 fL Normal 80.0-94.0 [facility] Comment on above: Performed By: #### D RUGRPD #### [facility] [address] [place] [address] Dr. Brittanie Burns MONO # 1.5 103/ul Critically high 0.3-0.8 [facility] Comment on above: Performed By: #### D RUGRPD #### [facility] [address] [place] [address] Dr. Brittanie Burns Monocytes/100 WBC (Bld) 14.4 % Critically high 1.7-12.0 [facility] Comment on above: Performed By: #### D RUGRPD #### [facility] [address] [place] [address] Dr. Brittanie Burns NEUT # 6.3 103/ul Normal 1.4-6.5 [facility] Comment on above: Performed By: #### D RUGRPD #### [facility] [address] [place] [address] Dr. Brittanie Burns Neutrophils/100 WBC (Bld) 61.9 % Normal 43.0-75.0 [facility] Comment on above: Performed By: #### D RUGRPD #### [facility] [address] [place] [address] Dr. Brittanie Burns Platelet mean volume (Bld) [Entitic vol] 10.0 fL Normal 9.5-13.5 [facility] Comment on above: Performed By: #### D RUGRPD #### [facility] [address] [place] [address] Dr. Brittanie Burns PLT 305 103/ul Normal 150-450 [facility] Comment on above: Performed By: #### D RUGRPD #### [facility] [address] [place] [address] Dr. Brittanie Burns RBC 4.46 106/ul Critically low 4.70-6.10 [facility] Comment on above: Performed By: #### D RUGRPD #### [facility] [address] [place] [address] Dr. Brittanie Burns WBC 10.2 103/ul Normal 4.0-11.0 [facility] Comment on above: Performed By: #### D RUGRPD #### [facility] [address] [place] [address] Dr. Brittanie Burns PROF 14(COMP METB)on 023 Albumin [Mass/Vol] 3.4 g/dL Normal 3.4-5.0 [facility] Comment on above: Performed By: #### L YMA #### [facility] [address] [place] [address] Dr. Brittanie Burns Albumin/Globulin [Mass ratio] 0.8 {ratio} Normal [facility] Comment on above: Performed By: #### L YMA #### [facility] [address] [place] [address] Dr. Brittanie Burns ALP [Catalytic activity/Vol] 83 U/L Normal 46-116 [facility] Comment on above: Performed By: #### L YMA #### [facility] [address] [place] [address] Dr. Brittanie Burns ALT [Catalytic activity/Vol] 14 U/L Critically low 16-63 [facility] Comment on above: Performed By: #### L YMA #### [facility] [address] [place] [address] Dr. Brittanie Burns Anion gap [Moles/Vol] 16.0 mmol/L Normal Th e [facility] Comment on above: Performed By: #### L YMA #### [facility] [address] [address] [address] Brittanie Burns AST [Catalytic activity/Vol] 14 U/L Critically low 15-37 [facility] Comment on above: Performed By: #### L YMA #### [facility] [address] [place] [address] Dr. Brittanie Burns Bilirubin [Mass/Vol] 0.5 mg/dL Normal 0.2-1.0 [facility] Comment on above: Performed By: #### L YMA #### [facility] [address] [place] [address] Dr. Brittanie Burns Calcium [Mass/Vol] 9.0 mg/dL Normal 8.5-10.1 [facility] Comment on above: Performed By: #### L YMA #### [facility] [address] [place] [address] Dr. Brittanie Burns Chloride [Moles/Vol] 103 mmol/L Normal 98-107 [facility] Comment on above: Performed By: #### L YMA #### [facility] [address] [place] [address] Dr. Brittanie Burns CO2 [Moles/Vol] 24.5 mmol/L Normal 21.0-32.0 [facility] Comment on above: Performed By: #### L YMA #### [facility] [address] [place] [address] Dr. Brittanie Burns Creatinine [Mass/Vol] 2.67 mg/dL Critically high 0.70-1.30 [facility] Comment on above: Performed By: #### L YMA #### [facility] [address] [place] [address] Dr. Brittanie Burns EGFR-AF LAO 29 mL/min/1.73m2 Critically low >=60 [facility] Comment on above: Performed By: #### L YMA #### [facility] [address] [address] [address] Brittanie Burns EGFR-NON AF LAO 24 mL/min/1.73m2 Critically low >=60 [facility] Comment on above: Performed By: #### L YMA #### [facility] [address] [address] [address] Brittanie Burns Globulin (S) [Mass/Vol] 4.2 g/dL Normal [facility] Comment on above: Performed By: #### L YMA #### [facility] [address] [address] [address] Brittanie Burns Glucose [Mass/Vol] 131 mg/dL Critically high 74-106 [facility] Comment on above: Performed By: #### L YMA #### [facility] [address] [address] [address] Brittanie Burns Potassium [Moles/Vol] 3.5 mmol/L Normal 3.5-5.1 [facility] Comment on above: Performed By: #### L YMA #### [facility] [address] [place] [address] Dr. Brittanie Burns Protein [Mass/Vol] 7.6 g/dL Normal 6.4-8.2 [facility] Comment on above: Performed By: #### L YMA #### [facility] [address] [address] [address] Brittanie Burns Sodium [Moles/Vol] 140 mmol/L Normal 136-145 [facility] Comment on above: Performed By: #### L YMA #### [facility] [address] [address] [address] Brittanie Burns Urea nitrogen [Mass/Vol] 33.0 mg/dL Critically high 7.0-18.0 [facility] Comment on above: Performed By: #### L YMA #### [facility] [address] [address] [address] Brittanie Burns Urea nitrogen/Creatinine [Mass ratio] 12.4 mg/mg Normal [facility] Comment on above: Performed By: #### L YMA #### [facility] [address] [place] [address] Dr. Brittanie Burns VITAMIN B1 (THIAMINE)on 09-23 Vit. B1, Whole Blood 133.7 nmol/L Normal 66.5-200.0 Th e [facility] Comment on above: Performed By: #### V ITB1T #### [facility] [address] [place] [address] Dr. Brittanie Burns CBC W MANUAL DIFFon 10-20-19 23 ATYPICAL LYMPH # Normal [facility] Comment on above: Performed By: #### C BC #### [facility] [address] [place] [address] Dr. Brittanie Bursn ATYPICAL LYMPH % Normal [facility] Comment on above: Performed By: #### C BC #### [facility] [address] [place] [address] Dr. Brittanie Burns BAND # Normal 0.0-0.3 [facility] Comment on above: Performed By: #### C BC #### [facility] [address] [place] [address] Dr. Brittanie HUGGINS % Normal 0-5 [facility] Comment on above: Performed By: #### C BC #### [facility] [address] [place] [address] Dr. Brittanie Burns BASOM # 0.34 103/ul Critically high 0.00-0.10 [facility] Comment on above: Performed By: #### C BC #### [facility] [address] [place] [address] Dr. Brittanie Burns BASOM % 3.0 % Critically high 0.2-2.0 [facility] Comment on above: Performed By: #### C BC #### [facility] [address] [place] [address] Dr. Brittanie Burns BLAST # Normal [facility] Comment on above: Performed By: #### C BC #### [facility] [address] [place] [address] Dr. Brittanie Burns BLAST % Normal [facility] Comment on above: Performed By: #### C BC #### [facility] [address] [place] [address] Dr. Brittanie Burns CORRECTED WBC Normal 4.0-11.0 [facility] Comment on above: Performed By: #### C BC #### [facility] [address] [address] [address] Brittanie Burns EOS # 0.22 103/ul Normal 0.00-0.70 [facility] Comment on above: Performed By: #### C BC #### [facility] [address] [place] [address] Dr. Brittanie Burns EOS% 2.0 % Normal 0.9-7.0 [facility] Comment on above: Performed By: #### C BC #### [facility] [address] [place] [address] Dr. Brittanie Burns HCT 35.2 % Critically low 42.0-54.0 [facility] Comment on above: Performed By: #### C BC #### [facility] [address] [place] [address] Dr. Brittanie Burns HGB 12.2 g/dl Critically low 14.0-18.0 [facility] Comment on above: Performed By: #### C BC #### [facility] [address] [place] [address] Dr. Brittanie Burns LYMPHM # 1.90 103/ul Normal 1.20-3.80 [facility] Comment on above: Performed By: #### C BC #### [facility] [address] [place] [address] Dr. Brittanie Burns LYMPHM% 17.0 % Critically low 20.5-60.0 [facility] Comment on above: Performed By: #### C BC #### [facility] [address] [place] [address] Dr. Brittanie Burns MCH 30.7 pg Normal 25.9-34.0 [facility] Comment on above: Performed By: #### C BC #### [facility] [address] [place] [address] Dr. Brittanie Burns MCHC 34.7 g/dl Normal 29.9-35.2 [facility] Comment on above: Performed By: #### C BC #### [facility] [address] [place] [address] Dr. Brittanie Burns MCV 88.4 fL Normal 80.0-94.0 [facility] Comment on above: Performed By: #### C BC #### [facility] [address] [place] [address] Dr. Brittanie Burns METAMYELOCYTE # Normal [facility] Comment on above: Performed By: #### C BC #### [facility] [address] [place] [address] Dr. Brittanie Burns METAMYELOCYTE % Normal [facility] Comment on above: Performed By: #### C BC #### [facility] [address] [place] [address] Dr. Brittanie Burns MONOM# 0.67 103/ul Normal 0.30-0.80 [facility] Comment on above: Performed By: #### C BC #### [facility] [address] [place] [address] Dr. Brittanie Burns MONOM% 6.0 % Normal 1.7-12.0 [facility] Comment on above: Performed By: #### C BC #### [facility] [address] [place] [address] Dr. Brittanie Burns MPV 9.9 fL Normal 9.5-13.5 [facility] Comment on above: Performed By: #### C BC #### [facility] [address] [place] [address] Dr. Brittanie Burns MYELOCYTE # Normal [facility] Comment on above: Performed By: #### C BC #### [facility] [address] [place] [address] Dr. Brittanie Burns MYELOCYTE % Normal [facility] Comment on above: Performed By: #### C BC #### [facility] [address] [place] [address] Dr. Brittanie Burns NRBC Normal [facility] Comment on above: Performed By: #### C BC #### [facility] [address] [address] [address] Brittanie Burns PLT 267 103/ul Normal 150-450 [facility] Comment on above: Performed By: #### C BC #### [facility] [address] [place] [address] Dr. Brittanie Burns RBC 3.98 106/ul Critically low 4.70-6.10 [facility] Comment on above: Performed By: #### C BC #### [facility] [address] [place] [address] Dr. Brittanie Burns RDW 13.4 % Normal 11.0-15.0 [facility] Comment on above: Performed By: #### C BC #### [facility] [address] [place] [address] Dr. Brittanie Burns SEG # 8.06 103/ul Critically high 1.40-6.50 [facility] Comment on above: Performed By: #### C BC #### [facility] [address] [place] [address] Dr. Brittanie Burns SEG % 72.0 % Normal 43.0-75.0 [facility] Comment on above: Performed By: #### C BC #### [facility] [address] [place] [address] Dr. Brittanie Burns WBC 11.2 103/ul Critically high 4.0-11.0 [facility] Comment on above: Performed By: #### C BC #### [facility] [address] [place] [address] Dr. Brittanie Burns CULTURE BLOODon 10-19-2022 Microscopic examination of blood, culture Culture Observations: NO GROWTH AT 5 DAYS. Normal [facility] Comment on above: Performed By: #### B [id number] #### [facility] [address] [place] [address] Dr. Brittanie Burns ECHOCARDIO M/2D COMPLETEon 0 10-19-2022 ECHOCARDIO M/2D COMPLETE Patient: SHELBY VALERIO Matt Exam Date: 10/19/2022 : 1950 Gender:M Ordering : SHAIKH Manav SALINAS . Admission #: [id number] Family : Order #: [id number] CLICK HERE TO VIEW EXAM ECHOCARDIOGRAM REPORT [...] Left Atrium LA Volume Index (2D A2C): 91920 mm3 Left Atrium Systolic Dimension: 2.20 cm [...] Pedroza M.D. on 10/19/2022 at 14:32 Normal [facility] PROF 14(COMP METB)on 023 Albumin [Mass/Vol] 2.8 g/dL Critically low 3.4-5.0 [facility] Comment on above: Performed By: #### L YMA #### [facility] [address] [place] [address] Dr. Brittanie Burns Albumin/Globulin [Mass ratio] 0.8 {ratio} Normal [facility] Comment on above: Performed By: #### L YMA #### [facility] [address] [place] [address] Dr. Brittanie Burns ALP [Catalytic activity/Vol] 72 U/L Normal 46-116 [facility] Comment on above: Performed By: #### L YMA #### [facility] [address] [place] [address] Dr. Brittanie Burns ALT [Catalytic activity/Vol] 12 U/L Critically low 16-63 [facility] Comment on above: Performed By: #### L YMA #### [facility] [address] [place] [address] Dr. Brittanie Burns Anion gap [Moles/Vol] 15.7 mmol/L Normal [facility] Comment on above: Performed By: #### L YMA #### [facility] [address] [place] [address] Dr. Brittanie Burns AST [Catalytic activity/Vol] 12 U/L Critically low 15-37 [facility] Comment on above: Performed By: #### L YMA #### [facility] [address] [place] [address] Dr. Brittanie Burns Bilirubin [Mass/Vol] 0.5 mg/dL Normal 0.2-1.0 [facility] Comment on above: Performed By: #### L YMA #### [facility] [address] [address] [address] Brittanie Burns Calcium [Mass/Vol] 8.7 mg/dL Normal 8.5-10.1 [facility] Comment on above: Performed By: #### L YMA #### [facility] [address] [address] [address] Brittanie Burns Chloride [Moles/Vol] 107 mmol/L Normal 98-107 [facility] Comment on above: Performed By: #### L YMA #### [facility] [address] [address] [address] Brittanie Burns CO2 [Moles/Vol] 23.0 mmol/L Normal 21.0-32.0 [facility] Comment on above: Performed By: #### L YMA #### [facility] [address] [address] [address] Brittanie Burns Creatinine [Mass/Vol] 3.79 mg/dL Critically high 0.70-1.30 [facility] Comment on above: Performed By: #### L YMA #### [facility] [address] [place] [address] Dr. Brittanie Burns EGFR-AF LAO 19 mL/min/1.73m2 Critically low >=60 [facility] Comment on above: Performed By: #### L YMA #### [facility] [address] [address] [address] Brittanie Burns EGFR-NON AF LAO 16 mL/min/1.73m2 Critically low >=60 [facility] Comment on above: Performed By: #### L YMA #### [facility] [address] [address] [address] Brittanie Burns Globulin (S) [Mass/Vol] 3.5 g/dL Normal [facility] Comment on above: Performed By: #### L YMA #### [facility] [address] [address] [address] Brittanie Burns Glucose [Mass/Vol] 75 mg/dL Normal 74-106 [facility] Comment on above: Performed By: #### L YMA #### [facility] [address] [address] [address] Brittanie Burns Potassium [Moles/Vol] 3.7 mmol/L Normal 3.5-5.1 [facility] Comment on above: Performed By: #### L YMA #### [facility] [address] [address] [address] Brittanie Burns Protein [Mass/Vol] 6.3 g/dL Critically low 6.4-8.2 [facility] Comment on above: Performed By: #### L YMA #### [facility] [address] [place] [address] Dr. Brittanie Burns Sodium [Moles/Vol] 142 mmol/L Normal 136-145 [facility] Comment on above: Performed By: #### L YMA #### [facility] [address] [place] [address] Dr. Brittanie Burns Urea nitrogen [Mass/Vol] 40.0 mg/dL Critically high 7.0-18.0 [facility] Comment on above: Performed By: #### L YMA #### [facility] [address] [place] [address] Dr. Brittanie Burns Urea nitrogen/Creatinine [Mass ratio] 10.6 mg/mg Normal [facility] Comment on above: Performed By: #### L YMA #### [facility] [address] [place] [address] Dr. Brittanie Burns VANCOMYCIN TROUGHon 10-20-19 VANCOMYCIN TROUGH 7.0 ug/ml Normal 5.0-20.0 [facility] Comment on above: Performed By: #### B [id number] #### [facility] [address] [place] [address] Dr. Brittanie Burns CBC AUTO DIFFon 10-18-2022 BASO # 0.1 103/ul Normal 0.0-0.1 [facility] Comment on above: Performed By: #### C BC #### [facility] [address] [address] [address] Brittanie Burns Basophils/100 WBC (Bld) 0.6 % Normal 0.2-2.0 [facility] Comment on above: Performed By: #### C BC #### [facility] [address] [place] [address] Dr. Brittanie Burns EO # 0.1 103/ul Normal 0.0-0.7 [facility] Comment on above: Performed By: #### C BC #### [facility] [address] [place] [address] Dr. Brittanie Burns Eosinophils/100 WBC (Bld) 1.0 % Normal 0.9-7.0 [facility] Comment on above: Performed By: #### C BC #### [facility] [address] [place] [address] Dr. Brittanie Burns Erythrocyte distribution width (RBC) [Ratio] 13.7 % Normal 11.0-15.0 [facility] Comment on above: Performed By: #### C BC #### [facility] [address] [place] [address] Dr. Brittanie Burns Hematocrit (Bld) [Volume fraction] 33.5 % Critically low 42.0-54.0 [facility] Comment on above: Performed By: #### C BC #### [facility] [address] [place] [address] Dr. Brittanie Burns Hemoglobin (Bld) [Mass/Vol] 11.2 g/dL Critically low 14.0-18.0 [facility] Comment on above: Performed By: #### C BC #### [facility] [address] [place] [address] Dr. Brittanie Burns IG # 0.04 10e3/ul Critically high 0.00-0.03 [facility] Comment on above: Performed By: #### C BC #### [facility] [address] [place] [address] Dr. Brittanie Burns IG % 0.3 % Normal 0.0-0.5 [facility] Comment on above: Performed By: #### C BC #### [facility] [address] [address] [address] Brittanie Burns LYMPH # 1.8 103/ul Normal 1.2-3.8 [facility] Comment on above: Performed By: #### C BC #### [facility] [address] [address] [address] Brittanie Burns Lymphocytes/100 WBC (Bld) 15.4 % Critically low 20.5-60.0 [facility] Comment on above: Performed By: #### C BC #### [facility] [address] [place] [address] Dr. Brittanie Burns MANUAL DIFF REQ NO Normal [facility] Comment on above: Performed By: #### C BC #### [facility] [address] [place] [address] Dr. Brittanie Burns MCH (RBC) [Entitic mass] 30.2 pg Normal 25.9-34.0 [facility] Comment on above: Performed By: #### C BC #### [facility] [address] [place] [address] Dr. Brittanie Burns MCHC (RBC) [Mass/Vol] 33.4 g/dL Normal 29.9-35.2 [facility] Comment on above: Performed By: #### C BC #### [facility] [address] [place] [address] Dr. Brittanie Burns MCV (RBC) [Entitic vol] 90.3 fL Normal 80.0-94.0 [facility] Comment on above: Performed By: #### C BC #### [facility] [address] [place] [address] Dr. Brittanie Burns MONO # 1.3 103/ul Critically high 0.3-0.8 [facility] Comment on above: Performed By: #### C BC #### [facility] [address] [place] [address] Dr. Brittanie Burns Monocytes/100 WBC (Bld) 10.7 % Normal 1.7-12.0 [facility] Comment on above: Performed By: #### C BC #### [facility] [address] [address] [address] Brittanie Burns NEUT # 8.5 103/ul Critically high 1.4-6.5 [facility] Comment on above: Performed By: #### C BC #### [facility] [address] [id number] [address] Brittanie Burns Neutrophils/100 WBC (Bld) 72.0 % Normal 43.0-75.0 [facility] Comment on above: Performed By: #### C BC #### [facility] [address] [address] [address] Brittanie Burns Platelet mean volume (Bld) [Entitic vol] 9.4 fL Critically low 9.5-13.5 [facility] Comment on above: Performed By: #### C BC #### [facility] [address] [address] [address] Brittanie Burns PLT 241 103/ul Normal 150-450 [facility] Comment on above: Performed By: #### C BC #### [facility] [address] [place] [address] Dr. Brittanie Burns RBC 3.71 106/ul Critically low 4.70-6.10 [facility] Comment on above: Performed By: #### C BC #### [facility] [address] [id number] Brittanie Burns WBC 11.8 103/ul Critically high 4.0-11.0 [facility] Comment on above: Performed By: #### C BC #### [facility] [address] [id number] Brittanie Burns LYME DISEASE AB EIA W REFLEX on 10-18-2022 Lyme Total Antibody,EIA Negative Normal Negative [facility] Comment on above: Result Comment: Lyme [...] recommended. Performed By: #### L YMA #### [facility] [address] [address] [address] Brittanie Burns PROF 14(COMP METB)on 023 Albumin [Mass/Vol] 3.1 g/dL Critically low 3.4-5.0 [facility] Comment on above: Performed By: #### L YMA #### [facility] [address] [place] [address] Dr. Brittanie Burns Albumin/Globulin [Mass ratio] 1.2 {ratio} Normal [facility] Comment on above: Performed By: #### L YMA #### [facility] [address] [place] [address] Dr. Brittanie Burns ALP [Catalytic activity/Vol] 74 U/L Normal 46-116 [facility] Comment on above: Performed By: #### L YMA #### [facility] [address] [place] [address] Dr. Brittanie Burns ALT [Catalytic activity/Vol] 13 U/L Critically low 16-63 [facility] Comment on above: Performed By: #### L YMA #### [facility] [address] [place] [address] Dr. Brittanie Burns Anion gap [Moles/Vol] 17.6 mmol/L Normal [facility] Comment on above: Performed By: #### L YMA #### [facility] [address] [place] [address] Dr. Brittanie Burns AST [Catalytic activity/Vol] 15 U/L Normal 15-37 [facility] Comment on above: Performed By: #### L YMA #### [facility] [address] [place] [address] Dr. Brittanie Burns Bilirubin [Mass/Vol] 0.5 mg/dL Normal 0.2-1.0 [facility] Comment on above: Performed By: #### L YMA #### [facility] [address] [place] [address] Dr. Brittanie Burns Calcium [Mass/Vol] 8.6 mg/dL Normal 8.5-10.1 [facility] Comment on above: Performed By: #### L YMA #### [facility] [address] [address] [address] Brittanie Burns Chloride [Moles/Vol] 107 mmol/L Normal 98-107 [facility] Comment on above: Performed By: #### L YMA #### [facility] [address] [address] [address] Birttanie Burns CO2 [Moles/Vol] 21.1 mmol/L Normal 21.0-32.0 [facility] Comment on above: Performed By: #### L YMA #### [facility] [address] [address] [address] Brittanie Burns Creatinine [Mass/Vol] 5.64 mg/dL Critically high 0.70-1.30 [facility] Comment on above: Performed By: #### L YMA #### [facility] [address] [address] [address] Brittanie Burns EGFR-AF LAO 12 mL/min/1.73m2 Critically low >=60 [facility] Comment on above: Performed By: #### L YMA #### [facility] [address] [address] [address] Brittanie Burns EGFR-NON AF LAO 10 mL/min/1.73m2 Critically low >=60 [facility] Comment on above: Performed By: #### L YMA #### [facility] [address] [address] [address] Brittanie Burns Globulin (S) [Mass/Vol] 2.6 g/dL Normal [facility] Comment on above: Performed By: #### L YMA #### [facility] [address] [address] [address] Brittanie Burns Glucose [Mass/Vol] 75 mg/dL Normal 74-106 [facility] Comment on above: Performed By: #### L YMA #### [facility] [address] [address] [address] Brittanie Burns Potassium [Moles/Vol] 4.7 mmol/L Normal 3.5-5.1 [facility] Comment on above: Performed By: #### L YMA #### [facility] [address] [place] [address] Dr. Brittanie Burns Protein [Mass/Vol] 5.7 g/dL Critically low 6.4-8.2 [facility] Comment on above: Performed By: #### L YMA #### [facility] [address] [place] [address] Dr. Brittanie Burns Sodium [Moles/Vol] 141 mmol/L Normal 136-145 [facility] Comment on above: Performed By: #### L YMA #### [facility] [address] [place] [address] Dr. Brittanie Burns Urea nitrogen [Mass/Vol] 44.0 mg/dL Critically high 7.0-18.0 [facility] Comment on above: Performed By: #### L YMA #### [facility] [address] [place] [address] Dr. Brittanie Burns Urea nitrogen/Creatinine [Mass ratio] 7.8 mg/mg Normal [facility] Comment on above: Performed By: #### L YMA #### [facility] [address] [place] [address] Dr. Brittanie Burns RPR QUAL REFLEX TO QUANTon 0 10-18-2022 Rapid Plasma Reagin, Qual Non-Reactive Normal Non Reactive [facility] Comment on above: Performed By: #### V [id number] #### [facility] [address] [place] [address] Dr. Brittanie Burns CBC AUTO DIFFon 10-17-2022 BASO # 0.0 103/ul Normal 0.0-0.1 [facility] Comment on above: Performed By: #### C BC #### [facility] [address] [place] [address] Dr. Brittanie Burns Basophils/100 WBC (Bld) 0.3 % Normal 0.2-2.0 [facility] Comment on above: Performed By: #### C BC #### [facility] [address] [place] [address] Dr. Brittanie Burns EO # 0.0 103/ul Normal 0.0-0.7 [facility] Comment on above: Performed By: #### C BC #### [facility] [address] [place] [address] Dr. Brittanie Burns Eosinophils/100 WBC (Bld) 0.1 % Critically low 0.9-7.0 [facility] Comment on above: Performed By: #### C BC #### [facility] [address] [place] [address] Dr. Brittanie Burns Erythrocyte distribution width (RBC) [Ratio] 13.7 % Normal 11.0-15.0 [facility] Comment on above: Performed By: #### C BC #### [facility] [address] [place] [address] Dr. Brittanie Burns Hematocrit (Bld) [Volume fraction] 34.2 % Critically low 42.0-54.0 [facility] Comment on above: Performed By: #### C BC #### [facility] [address] [place] [address] Dr. Brittanie Burns Hemoglobin (Bld) [Mass/Vol] 11.6 g/dL Critically low 14.0-18.0 [facility] Comment on above: Performed By: #### C BC #### [facility] [address] [place] [address] Dr. Brittanie Burns IG # 0.06 10e3/ul Critically high 0.00-0.03 [facility] Comment on above: Performed By: #### C BC #### [facility] [address] [place] [address] Dr. Brittanie Burns IG % 0.4 % Normal 0.0-0.5 [facility] Comment on above: Performed By: #### C BC #### [facility] [address] [place] [address] Dr. Brittanie Burns LYMPH # 1.4 103/ul Normal 1.2-3.8 [facility] Comment on above: Performed By: #### C BC #### [facility] [address] [place] [address] Dr. Brittanie Burns Lymphocytes/100 WBC (Bld) 10.4 % Critically low 20.5-60.0 [facility] Comment on above: Performed By: #### C BC #### [facility] [address] [place] [address] Dr. Brittanie Burns MANUAL DIFF REQ NO Normal [facility] Comment on above: Performed By: #### C BC #### [facility] [address] [place] [address] Dr. Brittanie Burns MCH (RBC) [Entitic mass] 30.9 pg Normal 25.9-34.0 [facility] Comment on above: Performed By: #### C BC #### [facility] [address] [place] [address] Dr. Brittanie Burns MCHC (RBC) [Mass/Vol] 33.9 g/dL Normal 29.9-35.2 [facility] Comment on above: Performed By: #### C BC #### [facility] [address] [place] [address] Dr. Brittanie Burns MCV (RBC) [Entitic vol] 91.0 fL Normal 80.0-94.0 [facility] Comment on above: Performed By: #### C BC #### [facility] [address] [place] [address] Dr. Brittanie Burns MONO # 1.4 103/ul Critically high 0.3-0.8 [facility] Comment on above: Performed By: #### C BC #### [facility] [address] [place] [address] Dr. Brittanie Burns Monocytes/100 WBC (Bld) 10.3 % Normal 1.7-12.0 [facility] Comment on above: Performed By: #### C BC #### [facility] [address] [place] [address] Dr. Brittanie Burns NEUT # 10.5 103/ul Critically high 1.4-6.5 [facility] Comment on above: Performed By: #### C BC #### [facility] [address] [place] [address] Dr. Brittanie Burns Neutrophils/100 WBC (Bld) 78.5 % Critically high 43.0-75.0 [facility] Comment on above: Performed By: #### C BC #### [facility] [address] [place], [place] [address] Dr. Brittanie Burns Platelet mean volume (Bld) [Entitic vol] 9.2 fL Critically low 9.5-13.5 [facility] Comment on above: Performed By: #### C BC #### [facility] [address] [place], [place] [address] Dr. Brittanie Burns PLT 251 103/ul Normal 150-450 [facility] Comment on above: Performed By: #### C BC #### [facility] [address] [address] [address] Brittanie Burns RBC 3.76 106/ul Critically low 4.70-6.10 [facility] Comment on above: Performed By: #### C BC #### [facility] [address] [address] [address] Brittanie Burns WBC 13.4 103/ul Critically high 4.0-11.0 [facility] Comment on above: Performed By: #### C BC #### [facility] [address] [place] [address] Dr. Brittanie Burns LIPID PROFILEon 10-17-2022 CHOL-HDL RATIO NORM SEE BELOW Normal [facility] Comment on above: Result Comment: 3.3 - 4.4 LOW RISK 4.4 - 7.1 AVERAGE RISK 7.1 - 11.0 MODERATE RISK >11.0 HIGH RISK Performed By: #### D RUGRPD #### [facility] [address] [place] [address] Dr. Brittanie Burns Cholesterol [Mass/Vol] 162 mg/dL Normal <=200 [facility] Comment on above: Performed By: #### D RUGRPD #### [facility] [address] [id number] Brittanie Burns Cholesterol in HDL [Mass/Vol] 32 mg/dL Critically low 40-60 [facility] Comment on above: Performed By: #### D RUGRPD #### [facility] [id number] Brittanie Burns Cholesterol in LDL [Mass/Vol] 98.6 mg/dL Normal [facility] Comment on above: Performed By: #### D RUGRPD #### [facility] [address] [address] [address] Brittanie Burns Cholesterol.total/Chol esterol in HDL [Mass ratio] 5.1 {ratio} Normal [facility] Comment on above: Performed By: #### D RUGRPD #### [facility] [address] [address] [address] Brittanie Burns HDL NORMAL > or = 60 mg/dl - LOW CARDIOVASCULAR RISK <40 mg/dl - HIGH CARDIOVASCULAR RISK Normal [facility] Comment on above: Performed By: #### D RUGRPD #### [facility] [address] [address] [address] Brittanie Burns LDL CALC NORMAL SEE BELOW Normal [facility] Comment on above: Result Comment: <100 mg/dl OPTIMAL 100 - 129 mg/dl NEAR OR ABOVE OPTIMAL 130 - 159 mg/dl BORDERLINE HIGH 160 - 189 mg/dl HIGH >190 mg/dl VERY HIGH Performed By: #### D RUGRPD #### [facility] [address] [address] [address] Brittanie Burns Triglyceride [Mass/Vol] 157 mg/dL Critically high <=150 [facility] Comment on above: Performed By: #### D RUGRPD #### [facility] [address] [address] [address] Brittanie Burns VLDL CALC 31.4 mg/dL Normal [facility] Comment on above: Performed By: #### D RUGRPD #### [facility] [address] [address] [address] Brittanie Burns MRI BRAIN WO CONon MRI BRAIN WO CON EXAMINATION: MRI BRAIN WO CON HISTORY: Acute confusion TECHNIQUE: Severely [...] by: DIONNE JEROME Date: 2022-10-17 21:49 Normal [facility] PROF 14(COMP METB)on 10-17- 023 Albumin [Mass/Vol] 3.1 g/dL Critically low 3.4-5.0 [facility] Comment on above: Performed By: #### B 12FOL #### [facility] [address] [address] [address] Brittanie Burns Albumin/Globulin [Mass ratio] 0.9 {ratio} Normal [facility] Comment on above: Performed By: #### B 12FOL #### [facility] [address] [place] [address] Dr. Brittanie Burns ALP [Catalytic activity/Vol] 63 U/L Normal 46-116 [facility] Comment on above: Performed By: #### B 12FOL #### [facility] [address] [place] [address] Dr. Brittanie Burns ALT [Catalytic activity/Vol] 15 U/L Critically low 16-63 [facility] Comment on above: Performed By: #### B 12FOL #### [facility] [address] [place] [address] Dr. Brittanie Burns Anion gap [Moles/Vol] 17.5 mmol/L Normal [facility] Comment on above: Performed By: #### B 12FOL #### [facility] [address] [place] [address] Dr. Brittanie Burns AST [Catalytic activity/Vol] 15 U/L Normal 15-37 [facility] Comment on above: Performed By: #### B 12FOL #### [facility] [address] [place] [address] Dr. Brittanie Burns Bilirubin [Mass/Vol] 0.4 mg/dL Normal 0.2-1.0 [facility] Comment on above: Performed By: #### B 12FOL #### [facility] [address] [address] [address] Brittanie Burns Calcium [Mass/Vol] 9.0 mg/dL Normal 8.5-10.1 [facility] Comment on above: Performed By: #### B 12FOL #### [facility] [address] [place] [address] Dr. Brittanie Burns Chloride [Moles/Vol] 114 mmol/L Critically high 98-107 [facility] Comment on above: Performed By: #### B 12FOL #### [facility] [address] [place] [address] Dr. Brittanie Burns CO2 [Moles/Vol] 22.8 mmol/L Normal 21.0-32.0 [facility] Comment on above: Performed By: #### B 12FOL #### [facility] [address] [place] [address] Dr. Brittanie Burns Creatinine [Mass/Vol] 6.98 mg/dL Critically high 0.70-1.30 [facility] Comment on above: Performed By: #### B 12FOL #### [facility] [address] [place] [address] Dr. Brittanie Burns EGFR-AF LAO 9 mL/min/1.73m2 Critically low >=60 [facility] Comment on above: Performed By: #### B 12FOL #### [facility] [address] [place] [address] Dr. Brittanie Burns EGFR-NON AF LAO 8 mL/min/1.73m2 Critically low >=60 [facility] Comment on above: Performed By: #### B 12FOL #### [facility] [address] [place] [address] Dr. Brittanie Burns Globulin (S) [Mass/Vol] 3.3 g/dL Normal [facility] Comment on above: Performed By: #### B 12FOL #### [facility] [address] [place] [address] Dr. Brittanie Burns Glucose [Mass/Vol] 104 mg/dL Normal 74-106 [facility] Comment on above: Performed By: #### B 12FOL #### [facility] [address] [place] [address] Dr. Brittanie Burns Potassium [Moles/Vol] 5.3 mmol/L Critically high 3.5-5.1 [facility] Comment on above: Performed By: #### B 12FOL #### [facility] [address] [place] [address] Dr. Brittanie Burns Protein [Mass/Vol] 6.4 g/dL Normal 6.4-8.2 [facility] Comment on above: Performed By: #### B 12FOL #### [facility] [address] [place] [address] Dr. Brittanie Burns Sodium [Moles/Vol] 149 mmol/L Critically high 136-145 [facility] Comment on above: Performed By: #### B 12FOL #### [facility] [address] [place] [address] Dr. Brittanie Burns Urea nitrogen [Mass/Vol] 45.0 mg/dL Critically high 7.0-18.0 [facility] Comment on above: Performed By: #### B 12FOL #### [facility] [address] [place] [address] Dr. Brittanie Burns Urea nitrogen/Creatinine [Mass ratio] 6.4 mg/mg Normal [facility] Comment on above: Performed By: #### B 12FOL #### [facility] [address] [place] [address] Dr. Brittanie Burns TSHon 10-17-2022 TSH 1.347 uIU/mL Normal 0.358-3.740 [facility] Comment on above: Performed By: #### D RUGRPD #### [facility] [address] [place] [address] Dr. Brittanie Burns VIT B12 AND FOLATEon 023 Cobalamin (Vitamin B12) [Mass/Vol] 296.0 pg/mL Normal 193.0-986.0 [facility] Comment on above: Performed By: #### B 12FOL #### [facility] [address] [place] [address] Dr. Brittanie Burns FOLATE 12.20 ng/mL Normal 8.60-58.90 [facility] Comment on above: Performed By: #### B 12FOL #### [facility] [address] [place] [address] Dr. Brittanie Burns ACETAMINOPHENon 10-16-2022 Acetaminophen [Mass/Vol] ug/mL Critically low 10.0-30.0 [facility] Comment on above: Performed By: #### L YMA #### [facility] [address] [place] [address] Dr. Brittanie Burns ACETONE SERUMon 10-16-2022 ACETONE Negative Normal NEGATIVE [facility] Comment on above: Performed By: #### D RUGRPD #### [facility] [address] [place] [address] Dr. Brittanie Burns AMMONIAon 10-16-2022 Ammonia (P) [Mass/Vol] ug/dL Critically low 11-32 [facility] Comment on above: Performed By: #### L YMA #### [facility] [address] [place] [address] Dr. Brittanie Burns BLOOD CULTURE ID PANELon A. baumannii Not detected Normal NOT DETECTED [facility] Comment on above: Performed By: #### L YMA #### [facility] [address] [place] [address] Dr. Brittanie Burns Bacteriodes fragilis Not detected Normal NOT DETECTED [facility] Comment on above: Performed By: #### L YMA #### [facility] [address] [place] [address] Dr. Brittanie Burns BCID CONTROLS PASSED Normal [facility] Comment on above: Performed By: #### L YMA #### [facility] [address] [place] [address] Dr. Brittanie BRANHAMDBTHD BLOOD CULTURE BOTTLE INFORMATION Normal [facility] Comment on above: Performed By: #### L YMA #### [facility] [address] [place] [address] Dr. Brittanie Burns BCIDHD1 ANTIMICROBIAL RESISTANCE GENES Normal [facility] Comment on above: Performed By: #### L YMA #### [facility] [address] [place] [address] Dr. Brittanie Burns BCIDHD2 SEE BELOW Normal [facility] Comment on above: Result Comment: Note : Antimicrobial resitance can occur via multiple mechanisms. A Not Detected result for the [employer] antomicrobial resistance gene assays does not indicate antimicrobial susceptibility. Subculturing is required for species identification and susceptibility testing of isolates. Performed By: #### L YMA #### [facility] [address] [place] [address] Dr. Brittanie Burns BCIDHD3 Positive Normal [facility] Comment on above: Performed By: #### L YMA #### [facility] [address] [place] [address] Dr. Brittanie Burns BCIDHD4 Negative Normal [facility] Comment on above: Performed By: #### L YMA #### [facility] [address] [place] [address] Dr. Brittanie Burns BCIDHD5 YEAST Normal [facility] Comment on above: Performed By: #### L YMA #### [facility] [address] [place] [address] Dr. Brittanie Burns Bottle Set: Set 2 Normal [facility] Comment on above: Performed By: #### L YMA #### [facility] [address] [place] [address] Dr. Brittanie Burns Bottle: Anaerobic Normal [facility] Comment on above: Performed By: #### L YMA #### [facility] [address] [place] [address] Dr. Brittanie Burns C. neoformans/gattii Not detected Normal NOT DETECTED [facility] Comment on above: Performed By: #### L YMA #### [facility] [address] [place] [address] Dr. Brittanie Burns Mari albicans Not detected Normal NOT DETECTED [facility] Comment on above: Performed By: #### L YMA #### [facility] [address] [place] [address] Dr. Brittanie Burns Mari auris Not detected Normal NOT DETECTED [facility] Comment on above: Performed By: #### L YMA #### [facility] [address] [address] [address] Brittanie Burns Mari glabrata Not detected Normal NOT DETECTED [facility] Comment on above: Performed By: #### L YMA #### [facility] [address] [address] [address] Brittanie Burns Mari Krusei Not detected Normal NOT DETECTED [facility] Comment on above: Performed By: #### L YMA #### [facility] [address] [address] [address] Brittanie Burns Mari Parapsilosis Not detected Normal NOT DETECTED [facility] Comment on above: Performed By: #### L YMA #### [facility] [address] [address] [address] Brittanie Burns Mari Tropicalis Not detected Normal NOT DETECTED [facility] Comment on above: Performed By: #### L YMA #### [facility] [address] [place] [address] Dr. Brittanie Burns CTX-M Resistant Gene Not Applicable Normal NOT DETECTE D [facility] Comment on above: Performed By: #### L YMA #### [facility] [address] [place] [address] Dr. Brittanie Burns E. Cloacae complex Not detected Normal NOT DETECTED [facility] Comment on above: Performed By: #### L YMA #### [facility] [address] [address] [address] Brittanie Burns E. faecalis Not detected Normal NOT DETECTED [facility] Comment on above: Performed By: #### L YMA #### [facility] [address] [place] [address] Dr. Brittanie Burns E. faecium Not detected Normal NOT DETECTED [facility] Comment on above: Performed By: #### L YMA #### [facility] [address] [place] [address] Dr. Brittanie Burns Enterobacteriaceae Not detected Normal NOT DETECTED [facility] Comment on above: Performed By: #### L YMA #### [facility] [address] [address] [address] Brittanie Burns Escherichia coli Not detected Normal NOT DETECTED [facility] Comment on above: Performed By: #### L YMA #### [facility] [address] [place] [address] Dr. Brittanie Burns H. influenzae Not detected Normal NOT DETECTED [facility] Comment on above: Performed By: #### L YMA #### [facility] [address] [place] [address] Dr. Brittanie Burns IMP Resistant Gene Not Applicable Normal NOT DETECTED [facility] Comment on above: Performed By: #### L YMA #### [facility] [address] [place] [address] Dr. Brittanie Burns K. oxytoca Not detected Normal NOT DETECTED [facility] Comment on above: Performed By: #### L YMA #### [facility] [address] [place] [address] Dr. Brittanie Burns K. pneumoniae Not detected Normal NOT DETECTED [facility] Comment on above: Performed By: #### L YMA #### [facility] [address] [place] [address] Dr. Brittanie Burns Klebsiella aerogenes Not detected Normal NOT DETECTED [facility] Comment on above: Performed By: #### L YMA #### [facility] [address] [place] [address] Dr. Brittanie Burns KPC Resistant Gene Not Applicable Normal NOT DETECTED [facility] Comment on above: Performed By: #### L YMA #### [facility] [address] [place] [address] Dr. Brittanie Burns List. monocytogenes Not detected Normal NOT DETECTED [facility] Comment on above: Performed By: #### L YMA #### [facility] [address] [place] [address] Dr. Brittanie Burns Mcr-1 Resistant Gene Not Applicable Normal NOT DETECTE D [facility] Comment on above: Performed By: #### L YMA #### [facility] [address] [place] [address] Dr. Brittanie Burns mecA/C Not Applicable Normal NOT DETECTED [facility] Comment on above: Performed By: #### L YMA #### [facility] [address] [place] [address] Dr. Brittanie Burns mecA/C MREJ Not Applicable Normal NOT DETECTED [facility] Comment on above: Performed By: #### L YMA #### [facility] [address] [place] [address] Dr. Brittanie Burns N. meningitidis Not detected Normal NOT DETECTED [facility] Comment on above: Performed By: #### L YMA #### [facility] [address] [place] [address] Dr. Brittanie Burns NDM Resistant Gene Not Applicable Normal NOT DETECTED [facility] Comment on above: Performed By: #### L YMA #### [facility] [address] [place] [address] Dr. Brittanie Burns Oxa-48-like Not Applicable Normal NOT DETECTED [facility] Comment on above: Performed By: #### L YMA #### [facility] [address] [place] [address] Dr. Brittanie Burns Proteus Not detected Normal NOT DETECTED [facility] Comment on above: Performed By: #### L YMA #### [facility] [address] [place] [address] Dr. Brittanie Burns Pseud. aeruginosa Not detected Normal NOT DETECTED [facility] Comment on above: Performed By: #### L YMA #### [facility] [address] [place] [address] Dr. Brittanie Burns S. maltophilia Not detected Normal NOT DETECTED [facility] Comment on above: Performed By: #### L YMA #### [facility] [address] [place] [address] Dr. Brittanie Burns Salmonella Not detected Normal NOT DETECTED [facility] Comment on above: Performed By: #### L YMA #### [facility] [address] [place] [address] Dr. Brittanie Burns Seratia marcescens Not detected Normal NOT DETECTED [facility] Comment on above: Performed By: #### L YMA #### [facility] [address] [address] [address] Brittanie Burns Site: Lt Forearm Normal [facility] Comment on above: Performed By: #### L YMA #### [facility] [address] [place] [address] Dr. Brittanie Burns Staph. aureus Not detected Normal NOT DETECTED [facility] Comment on above: Performed By: #### L YMA #### [facility] [address] [place] [address] Dr. Brittanie Burns Staph. epidermidis Not detected Normal NOT DETECTED [facility] Comment on above: Performed By: #### L YMA #### [facility] [address] [place] [address] Dr. Brittanie Burns Staph. lugdunensis Not detected Normal NOT DETECTED [facility] Comment on above: Performed By: #### L YMA #### [facility] [address] [place] [address] Dr. Brittanie Burns Staphylococcus Detected Critically abnormal NOT DETECTED [facility] Comment on above: Performed By: #### L YMA #### [facility] [address] [place] [address] Dr. Brittanie Burns Strep. agalactiae Not detected Normal NOT DETECTED [facility] Comment on above: Performed By: #### L YMA #### [facility] [address] [place] [address] Dr. Brittanie Burns Strep. pneumoniae Not detected Normal NOT DETECTED [facility] Comment on above: Performed By: #### L YMA #### [facility] [address] [place] [address] Dr. Brittanie Burns Strep. pyogenes Not detected Normal NOT DETECTED [facility] Comment on above: Performed By: #### L YMA #### [facility] [address] [place] [address] Dr. Brittanie Burns Streptococcus Not detected Normal NOT DETECTED [facility] Comment on above: Performed By: #### L YMA #### [facility] [address] [place] [address] Dr. Brittanie Burns Golden/B Resist. Gene Not Applicable Normal NOT DETECTED [facility] Comment on above: Performed By: #### L YMA #### [facility] [address] [place] [address] Dr. Brittanie Burns VIM Resistant Gene Not Applicable Normal NOT DETECTED [facility] Comment on above: Performed By: #### L YMA #### [facility] [address] [place] [address] Dr. Brittanie Burns BNPon 10-16-2022 Natriuretic peptide B (Bld) [Mass/Vol] 881.0 pg/mL Normal <=900.0 [facility] Comment on above: Performed By: #### B 12FOL #### [facility] [address] [place] [address] Dr. Brittanie Bruns CARDIAC TING ADMITon 023 CK [Catalytic activity/Vol] 153 U/L Normal 39-308 [facility] Comment on above: Performed By: #### B 12FOL #### [facility] [address] [place] [address] Dr. Brittanie Burns CK.MB [Mass/Vol] 1.86 ng/mL Normal <=3.60 [facility] Comment on above: Performed By: #### B 12FOL #### [facility] [address] [place] [address] Dr. Brittanie Burns HSTROP 29.4 pg/mL Normal 4.0-76.1 [facility] Comment on above: Result Comment: CUT- OFF POINTS HAVE BEEN ESTABLISHED BASED ON THE FOURTH UNIVERSAL DEFINITIONS OF MYOCARDIAL INFARCTION. THE UPPER REFERENCE LIMIT (URL) OF TROPONIN, DEFINED THE 99TH PERCENTILE OF cTnI DISTRIBUTION IN A REFERENCE POPULATION, HAS BEEN CONFIRMED THE DECISION THRESHOLD FOR [place] DIAGNOSIS. Performed By: #### B 12FOL #### [facility] [address] [place] [address] Dr. Brittanie Burns LYRIC 201 ng/mL Critically high 16-96 [facility] Comment on above: Performed By: #### B 12FOL #### [facility] [address] [place] [address] Dr. Brittanie Burns CBC AUTO DIFFon 10-16-2022 BASO # 0.1 103/ul Normal 0.0-0.1 [facility] Comment on above: Performed By: #### C BC #### [facility] [address] [place] [address] Dr. Brittanie Burns Basophils/100 WBC (Bld) 0.6 % Normal 0.2-2.0 [facility] Comment on above: Performed By: #### C BC #### [facility] [address] [place] [address] Dr. Brittanie Burns EO # 0.1 103/ul Normal 0.0-0.7 [facility] Comment on above: Performed By: #### C BC #### [facility] [address] [place] [address] Dr. Brittanie Burns Eosinophils/100 WBC (Bld) 0.8 % Critically low 0.9-7.0 [facility] Comment on above: Performed By: #### C BC #### [facility] [address] [place] [address] Dr. Brittanie Burns Erythrocyte distribution width (RBC) [Ratio] 13.7 % Normal 11.0-15.0 [facility] Comment on above: Performed By: #### C BC #### [facility] [address] [place] [address] Dr. Brittanie Burns Hematocrit (Bld) [Volume fraction] 41.4 % Critically low 42.0-54.0 [facility] Comment on above: Performed By: #### C BC #### [facility] [address] [place] [address] Dr. Brittanie Burns Hemoglobin (Bld) [Mass/Vol] 13.9 g/dL Critically low 14.0-18.0 [facility] Comment on above: Performed By: #### C BC #### [facility] [address] [place] [address] Dr. Brittanie Burns IG # 0.05 10e3/ul Critically high 0.00-0.03 [facility] Comment on above: Performed By: #### C BC #### [facility] [address] [place] [address] Dr. Brittanie Burns IG % 0.4 % Normal 0.0-0.5 [facility] Comment on above: Performed By: #### C BC #### [facility] [address] [place] [address] Dr. Brittanie Burns LYMPH # 1.4 103/ul Normal 1.2-3.8 [facility] Comment on above: Performed By: #### C BC #### [facility] [address] [place] [address] Dr. Brittanie Burns Lymphocytes/100 WBC (Bld) 11.0 % Critically low 20.5-60.0 [facility] Comment on above: Performed By: #### C BC #### [facility] [address] [place] [address] Dr. Brittanie Burns MANUAL DIFF REQ NO Normal [facility] Comment on above: Performed By: #### C BC #### [facility] [address] [place] [address] Dr. Brittanie Burns MCH (RBC) [Entitic mass] 30.5 pg Normal 25.9-34.0 [facility] Comment on above: Performed By: #### C BC #### [facility] [address] [place] [address] Dr. Brittanie Burns MCHC (RBC) [Mass/Vol] 33.6 g/dL Normal 29.9-35.2 [facility] Comment on above: Performed By: #### C BC #### [facility] [address] [place] [address] Dr. Brittanie Burns MCV (RBC) [Entitic vol] 91.0 fL Normal 80.0-94.0 [facility] Comment on above: Performed By: #### C BC #### [facility] [address] [place] [address] Dr. Brittanie Burns MONO # 1.2 103/ul Critically high 0.3-0.8 [facility] Comment on above: Performed By: #### C BC #### [facility] [address] [place] [address] Dr. Brittanie Burns Monocytes/100 WBC (Bld) 9.3 % Normal 1.7-12.0 [facility] Comment on above: Performed By: #### C BC #### [facility] [address] [address] [address] Brittanie Burns NEUT # 10.0 103/ul Critically high 1.4-6.5 [facility] Comment on above: Performed By: #### C BC #### [facility] [address] [id number] Brittanie Burns Neutrophils/100 WBC (Bld) 77.9 % Critically high 43.0-75.0 [facility] Comment on above: Performed By: #### C BC #### [facility] [address] [address] [address] Brittanie Burns Platelet mean volume (Bld) [Entitic vol] 9.6 fL Normal 9.5-13.5 [facility] Comment on above: Performed By: #### C BC #### [facility] [address] [address] [address] Brittanie Burns PLT 269 103/ul Normal 150-450 [facility] Comment on above: Performed By: #### C BC #### [facility] [id number] Brittanie Burns RBC 4.55 106/ul Critically low 4.70-6.10 [facility] Comment on above: Performed By: #### C BC #### [facility] [id number] Brittanie Burns WBC 12.8 103/ul Critically high 4.0-11.0 [facility] Comment on above: Performed By: #### C BC #### [facility] [address] [place] [address] ABD/PELVIS WO CONon 10-16 CT ABD/PELVIS WO CON EXAMINATION: CT ABD/PELVIS WO CON, 10/16/2022 1:52 PM EDT HISTORY: [...] the stomach, small and large bowel. Normal mesentery/peritoneum . Normal appendix. BLADDER: There is a Buckner [...] by: KYLE BOYLE Date: 2022-10-16 15:02 Normal [facility] CT STROKE HEAD WOon 10-17-19 CT STROKE HEAD WO EXAMINATION: CT STROKE HEAD WO, 10/16/2022 12:42 PM EDT HISTORY: [...] by: KYLE BOYLE Date: 2022-10-16 13:12 Normal [facility] CULTURE BLOODon 10-16-2022 Microscopic examination of blood, culture Culture Observations: NO GROWTH AT 5 DAYS. Normal [facility] Comment on above: Performed By: #### C BC #### [facility] [address] [place] [address] Dr. Brittanie Burns CULTURE URINEon 10-16-2022 CULTURE URINE Culture Observations: NO GROWTH. Normal [facility] Comment on above: Performed By: #### C BC #### [facility] [address] [address] [address] Brittanie Burns [facility]-22 SARS-CoV-2 (COVID-19) RNA HOPE+probe Ql (Unsp spec) Not detected Normal NOT DETECTED [facility] Comment on above: Result Comment: When diagnostic [...] for this test is supported by the Desk Clerk of Health and Human Service's declaration that [...] used). Performed By: #### D RUGRPD #### [facility] [address] [address] [address] Brittanie Burns DRUG SCREEN RAPID (URINE)on 10-16-2022 AMP Negative Normal NEGATIVE [facility] Comment on above: Performed By: #### D RUGRPD #### [facility] [address] [place] [address] Dr. Brittanie Burns BAR Negative Normal NEGATIVE [facility] Comment on above: Performed By: #### D RUGRPD #### [facility] [address] [place] [address] Dr. Brittanie Burns BUP Negative Normal NEGATIVE [facility] Comment on above: Performed By: #### D RUGRPD #### [facility] [address] [place] [address] Dr. Brittanie Burns BZO Negative Normal NEGATIVE [facility] Comment on above: Performed By: #### D RUGRPD #### [facility] [address] [place] [address] Dr. Brittanie Burns MARCELA Negative Normal NEGATIVE [facility] Comment on above: Performed By: #### D RUGRPD #### [facility] [address] [place] [address] Dr. Brittanie Burns CUT-OFFS SEE BELOW Normal [facility] Comment on above: Result Comment: AMP (Amphetamine): 500ng/mL, BAR (Barbituates): 200 ng/mL, BZO (Benzodiazepines): 150 ng/mL, BUP (Buprenorphine): 10 ng/mL, MARCELA (Cocaine): 150 ng/mL, mAMP (Methamphetamine): 500 ng/mL, MTD (Methadone): 200 ng/mL, OPI (Opiates): 100 ng/mL, OXY (Oxycodone): 100 ng/mL, PCP (Phencyclidine): 25 ng/mL, PPX (Propoxyphene): 300 ng/mL, THC (Cannabinoids): 50 ng/mL, TCA (Trycyclic Antidepressants): 300 ng/mL Performed By: #### D RUGRPD #### [facility] [address] [place] [address] Dr. Brittanie Burns DRUG CUT HEADER DRUG CLASS TEST SYSTEM CUT-OFF CONCENTRATIONS ARE FOLLOWS: Normal [facility] Comment on above: Performed By: #### D RUGRPD #### [facility] [address] [place] [address] Dr. Brittanie Burns mAMP Negative Normal NEGATIVE [facility] Comment on above: Performed By: #### D RUGRPD #### [facility] [address] [place] [address] Dr. Brittanie Burns MTD Negative Normal NEGATIVE [facility] Comment on above: Performed By: #### D RUGRPD #### [facility] [address] [place] [address] Dr. Brittanie Burns OPI Negative Normal NEGATIVE [facility] Comment on above: Performed By: #### D RUGRPD #### [facility] [address] [place] [address] Dr. Brittanie Burns OXY Negative Normal NEGATIVE [facility] Comment on above: Performed By: #### D RUGRPD #### [facility] [address] [place] [address] Dr. Brittanie Burns PCP Negative Normal NEGATIVE [facility] Comment on above: Performed By: #### D RUGRPD #### [facility] [address] [place] [address] Dr. Brittanie Burns PPX Negative Normal NEGATIVE [facility] Comment on above: Performed By: #### D RUGRPD #### [facility] [address] [place] [address] Dr. Brittanie Burns TCA Negative Normal NEGATIVE [facility] Comment on above: Performed By: #### D RUGRPD #### [facility] [address] [place] [address] Dr. Brittanie Burns THC Positive Abnormal NEGATIVE [facility] Comment on above: Performed By: #### D RUGRPD #### [facility] [address] [place] [address] Dr. Brittanie Burns ER URINE PROFILEon 3 Bilirubin Ql (U) Negative Normal NEGATIVE [facility] Comment on above: Performed By: #### D RUGRPD #### [facility] [address] [address] [address] Brittanie Burns Clarity (U) CLEAR Normal CLEAR [facility] Comment on above: Performed By: #### D RUGRPD #### [facility] [address] [place] [address] Dr. Brittanie Burns Color (U) LT. YELLOW Normal YELLOW [facility] Comment on above: Performed By: #### D RUGRPD #### [facility] [address] [place] [address] Dr. Brittanie MCCLELLAN A micrscopic examination will be performed if indicated. Normal [facility] Comment on above: Performed By: #### D RUGRPD #### [facility] [address] [place] [address] Dr. Brittanie Burns Glucose Ql (U) Negative Normal NEGATIVE [facility] Comment on above: Performed By: #### D RUGRPD #### [facility] [address] [place] [address] Dr. Brittanie Burns Hemoglobin Ql (U) SMALL Abnormal NEGATIVE [facility] Comment on above: Performed By: #### D RUGRPD #### [facility] [address] [place] [address] Dr. Brittanie Burns Ketones Ql (U) Negative Normal NEGATIVE [facility] Comment on above: Performed By: #### D RUGRPD #### [facility] [address] [place] [address] Dr. Brittanie Burns LEUKOCYTES Negative Normal NEGATIVE [facility] Comment on above: Performed By: #### D RUGRPD #### [facility] [address] [place] [address] Dr. Brittanie Burns Nitrite Ql (U) Negative Normal NEGATIVE [facility] Comment on above: Performed By: #### D RUGRPD #### [facility] [address] [place] [address] Dr. Brittanie Burns pH (U) 6.0 [pH] Normal 5-9 [facility] Comment on above: Performed By: #### D RUGRPD #### [facility] [address] [place] [address] Dr. Brittanie Burns SPEC GRAVITY 1.010 Normal 1.005-<=1.025 [facility] Comment on above: Performed By: #### D RUGRPD #### [facility] [address] [place] [address] Dr. Brittanie Burns UA PROTEIN Negative Normal NEGATIVE/ TRACE [facility] Comment on above: Performed By: #### D RUGRPD #### [facility] [address] [place] [address] Dr. Brittanie Burns UR MICRO IND INDICATED Normal [facility] Comment on above: Performed By: #### D RUGRPD #### [facility] [address] [place] [address] Dr. Brittanie Burns Urobilinogen Qn (U) 0.2 {Alice'U}/dL Normal 0.2 - 1. 0 [facility] Comment on above: Performed By: #### D RUGRPD #### [facility] [address] [place] [address] Dr. Brittanie Burns ETHANOL (BLD ALC)on 10-17-19 ALC NOTE NOTE: 80 mg/dl is the legal limit for a blood alcohol level Normal [facility] Comment on above: Performed By: #### L YMA #### [facility] [address] [place] [address] Dr. Brittanie Burns Ethanol [Mass/Vol] mg/dL Normal [facility] Comment on above: Performed By: #### L YMA #### [facility] [address] [place] [address] Dr. Brittanie Burns LACTATE/LACTIC ACIDon 2022 Lactate [Moles/Vol] 1.1 mmol/L Normal 0.4-2.0 [facility] Comment on above: Performed By: #### L ACT #### [facility] [address] [place] [address] Dr. Brittanie Burns POINT OF CARE GLUCOSEon 09-22 Glucose [Mass/Vol] 129 mg/dL Critically high 74-106 [facility] Comment on above: Performed By: #### D RUGRPD #### [facility] [address] [address] [address] Brittanie Burns PROF 14(COMP METB)on 023 Albumin [Mass/Vol] 3.6 g/dL Normal 3.4-5.0 [facility] Comment on above: Performed By: #### B 12FOL #### [facility] [address] [address] [address] Brittanie Burns Albumin/Globulin [Mass ratio] 0.9 {ratio} Normal [facility] Comment on above: Performed By: #### B 12FOL #### [facility] [address] [address] [address] Brittanie Burns ALP [Catalytic activity/Vol] 87 U/L Normal 46-116 [facility] Comment on above: Performed By: #### B 12FOL #### [facility] [address] [address] [address] Brittanie Burns ALT [Catalytic activity/Vol] 13 U/L Critically low 16-63 [facility] Comment on above: Performed By: #### B 12FOL #### [facility] [address] [address] [address] Brittanie Burns Anion gap [Moles/Vol] 17.9 mmol/L Normal [facility] Comment on above: Performed By: #### B 12FOL #### [facility] [address] [address] [address] Brittanie Burns AST [Catalytic activity/Vol] 20 U/L Normal 15-37 [facility] Comment on above: Performed By: #### B 12FOL #### [facility] [address] [address] [address] Brittanie Burns Bilirubin [Mass/Vol] 0.3 mg/dL Normal 0.2-1.0 [facility] Comment on above: Performed By: #### B 12FOL #### [facility] [address] [address] [address] Brittanie Burns Calcium [Mass/Vol] 9.5 mg/dL Normal 8.5-10.1 [facility] Comment on above: Performed By: #### B 12FOL #### [facility] [address] [address] [address] Brittanie Burns Chloride [Moles/Vol] 103 mmol/L Normal 98-107 [facility] Comment on above: Performed By: #### B 12FOL #### [facility] [address] [address] [address] Brittanie Burns CO2 [Moles/Vol] 22.2 mmol/L Normal 21.0-32.0 [facility] Comment on above: Performed By: #### B 12FOL #### [facility] [address] [address] [address] Brittanie Burns Creatinine [Mass/Vol] 7.79 mg/dL Critically high 0.70-1.30 [facility] Comment on above: Performed By: #### B 12FOL #### [facility] [address] [address] [address] Brittanie Burns EGFR-AF LAO 8 mL/min/1.73m2 Critically low >=60 [facility] Comment on above: Performed By: #### B 12FOL #### [facility] [address] [address] [address] Brittanie Burns EGFR-NON AF LAO 7 mL/min/1.73m2 Critically low >=60 [facility] Comment on above: Performed By: #### B 12FOL #### [facility] [address] [address] [address] Brittanie Burns Globulin (S) [Mass/Vol] 4.0 g/dL Normal [facility] Comment on above: Performed By: #### B 12FOL #### [facility] [address] [address] [address] Brittanie Burns Glucose [Mass/Vol] 129 mg/dL Critically high 74-106 [facility] Comment on above: Performed By: #### B 12FOL #### [facility] [address] [address] [address] Brittanie Burns Potassium [Moles/Vol] 5.1 mmol/L Normal 3.5-5.1 [facility] Comment on above: Performed By: #### B 12FOL #### [facility] [address] [place] [address] Dr. Brittanie Burns Protein [Mass/Vol] 7.6 g/dL Normal 6.4-8.2 [facility] Comment on above: Performed By: #### B 12FOL #### [facility] [address] [place] [address] Dr. Brittanie Burns Sodium [Moles/Vol] 138 mmol/L Normal 136-145 [facility] Comment on above: Performed By: #### B 12FOL #### [facility] [address] [place] [address] Dr. Brittanie Burns Urea nitrogen [Mass/Vol] 44.0 mg/dL Critically high 7.0-18.0 [facility] Comment on above: Performed By: #### B 12FOL #### [facility] [address] [place] [address] Dr. Brittanie Burns Urea nitrogen/Creatinine [Mass ratio] 5.6 mg/mg Normal [facility] Comment on above: Performed By: #### B 12FOL #### [facility] [address] [place] [address] Dr. Brittanie Burns PROF CHEM 8 (BAS METB)on Anion gap [Moles/Vol] 15.7 mmol/L Normal [facility] Comment on above: Performed By: #### B MP #### [facility] [address] [place] [address] Dr. Brittanie Burns Calcium [Mass/Vol] 8.7 mg/dL Normal 8.5-10.1 [facility] Comment on above: Performed By: #### B MP #### [facility] [address] [place] [address] Dr. Brittanie Burns Chloride [Moles/Vol] 108 mmol/L Critically high 98-107 [facility] Comment on above: Performed By: #### B MP #### [facility] [address] [place] [address] Dr. Brittanie Burns CO2 [Moles/Vol] 23.1 mmol/L Normal 21.0-32.0 [facility] Comment on above: Performed By: #### B MP #### [facility] [address] [address] [address] Brittanie Burns Creatinine [Mass/Vol] 7.19 mg/dL Critically high 0.70-1.30 [facility] Comment on above: Performed By: #### B MP #### [facility] [address] [address] [address] Brittanie Burns EGFR-AF LAO 9 mL/min/1.73m2 Critically low >=60 [facility] Comment on above: Performed By: #### B MP #### [facility] [address] [address] [address] Brittanie Burns EGFR-NON AF LAO 8 mL/min/1.73m2 Critically low >=60 [facility] Comment on above: Performed By: #### B MP #### [facility] [address] [address] [address] Brittanie Burns Glucose [Mass/Vol] 102 mg/dL Normal 74-106 [facility] Comment on above: Performed By: #### B MP #### [facility] [address] [address] [address] Brittanie Burns Potassium [Moles/Vol] 4.8 mmol/L Normal 3.5-5.1 [facility] Comment on above: Performed By: #### B MP #### [facility] [address] [address] [address] Brittanie Burns Sodium [Moles/Vol] 142 mmol/L Normal 136-145 [facility] Comment on above: Performed By: #### B MP #### [facility] [address] [address] [address] Brittanie Burns Urea nitrogen [Mass/Vol] 44.0 mg/dL Critically high 7.0-18.0 [facility] Comment on above: Performed By: #### B MP #### [facility] [address] [address] [address] Brittanie Burns Urea nitrogen/Creatinine [Mass ratio] 6.1 mg/mg Normal [facility] Comment on above: Performed By: #### B MP #### [facility] [address] [place] [address] Dr. Brittanie Burns PROTIMEon 10-16-2022 INR Coag (PPP) [Relative time] {INR} Normal [facility] Comment on above: Performed By: #### B 12FOL #### [facility] [address] [place] [address] Dr. Brittanie Burns INR GUIDELINES SEE BELOW Normal [facility] Comment on above: Result Comment: GINGER RED INR: 2.0 - 3.0 CONDITIONS NOT LISTED BELOW 2.5 - 3.5 FOR PROSTHETIC HEART VALVE REPLACEMENT 2.5 - 3.5 RECURRENT THROMBOSIS Performed By: #### B 12FOL #### [facility] [address] [place] [address] Dr. Brittanie Burns PT Coag (PPP) [Time] 9.8 s Normal 9.0-11.6 [facility] Comment on above: Performed By: #### B 12FOL #### [facility] [address] [place] [address] Dr. Brittanie Burns PTTon 10-16-2022 aPTT Coag (Bld) [Time] 27.1 s Normal 22.3-36.2 Th [facility] Comment on above: Performed By: #### B 12FOL #### [facility] [address] [place] [address] Dr. Brittanie Burns SALICYLATEon 10-16-2022 SALICYLATE 7.2 mg/dL Normal <=19.9 [facility] Comment on above: Performed By: #### L YMA #### [facility] [address] [place] [address] Dr. Brittanie Burns URINE MICROSCOPIC ONLYon BACTERIA SMALL Abnormal NONE SEEN [facility] Comment on above: Performed By: #### D RUGRPD #### [facility] [address] [place] [address] Dr. Brittanie Burns Bacteria identified Cx Nom (U) INDICATED Normal [facility] Comment on above: Performed By: #### D RUGRPD #### [facility] [address] [address] [address] Brittanie Burns CAST NONE SEEN Normal NONE SEEN [facility] Comment on above: Performed By: #### D RUGRPD #### [facility] [address] [place] [address] Dr. Brittanie Burns Crystals LM Nom (Urine sed) NONE SEEN Normal NONE SEEN [facility] Comment on above: Performed By: #### D RUGRPD #### [facility] [address] [place] [address] Dr. Brittanie Burns Epithelial cells LM Ql (Urine sed) RARE Normal NONE SEEN /RARE [facility] Comment on above: Performed By: #### D RUGRPD #### [facility] [address] [place] [address] Dr. Brittanie Burns MUCOUS NONE SEEN Normal NONE SEEN [facility] Comment on above: Performed By: #### D RUGRPD #### [facility] [address] [place] [address] Dr. Brittanie Burns RBC 2-5 Abnormal 0-2 [facility] Comment on above: Performed By: #### D RUGRPD #### [facility] [address] [place] [address] Dr. Brittanie Burns WBC 2-5 Abnormal NONE SEEN [facility] Comment on above: Performed By: #### D RUGRPD #### [facility] [address] [place] [address] Dr. Brittanie Burns XR CHEST 1 Von 10-16-2022 XR CHEST 1 V EXAM: XR CHEST 1 V HISTORY: Acute confusion COMPARISON: 10/21/2020 TECHNIQUE: Single view of the chest FINDINGS: Heart size normal. No focal consolidation, pleural effusion, pulmonary congestion or pneumothorax. Patient is rotated. Multiple external lines. IMPRESSION: No acute findings. Electronically authenticated by: MYKEL ZELAYA Date: 2022-10-16 13:33 Normal [facility] Encounters Encounter Date Encounter Type Care Provider Facility Start: 12-21-2022 End: 12-21-2022 ambulatory SHAIKH Cory SALINAS Facility: Start: 11-25-2022 End: 11-26-2022 ambulatory SHAIKH Cory SALINAS Facility:[facility] Start: 11-18-2022 End: 11-18-2022 ambulatory SHAIKH Cory SALINAS Facility:[facility] Start: 10-31-2022 End: 11-01-2022 ambulatory [facility] Start: 10-31-2022 End: 10-31-2022 Subsequent hospital visit by physician Ruben Soto MD Work Phone: [facility] Start: 10-26-2022 End: 10-27-2022 ambulatory RUBEN [facility] Start: 10-26-2022 End: 10-26-2022 Subsequent hospital visit by physician Ruben Soto MD Work Phone: [facility] Start: 10-24-2022 End: 10-25-2022 ambulatory SCOUT [facility] Start: 10-16-2022 End: 10-21-2022 Evaluation and management [...] above: Performed By: #### B 12FOL #### [facility] [address] [place] [address] Dr. Brittanie Burns Start: 10-31-2022 Basic metabolic pane l calcium total Melodie Nixon MD Work Phone: Start: 10-26-2022 Lipid panel Ruben morales MD Work Phone: Plan of Treatment Date Care Activity Detail Author Start: 02-21-2023 Influenza vaccination Flu vacc ine (Season Ended) [facility] Start: 1969 DTaP/Tdap/Td vaccine (1 - Tdap) DTaP/Tdap/Td vaccine (1 - Tdap) [employer] Start: 01-08-1951 COVID-19 Vaccine (#1) COVID-19 Vacci ne (#1) [employer] Payers Date Payer Category Payer Unknown [id number] 1959 Medicaid [id number] 1959 Medicare [id number] 1950 Unknown [id number] 2.16.84 [id number] 1950 Unknown [id number] 2.16.8 [id number] 1950 Unknown [id number] 2.16.84 [id number] 1950 Unknown [id number] 2.16.84 [id number] 1950 Unknown [id number] 2.16.84 [id number] 1950 Unknown [id number] 2.16.84 [id number] 1950 Unknown [id number] 2.16.84 [id number] 1950 Unknown [id number] 2.16.84 [id number] Social History Date Type Detail Facility Tobacco smoking stat [facility] Tobacco smoking consumption unknown [employer] Work Phone: Start: 1950 Sex Assigned At Not on file B [facility] [employer] Phone: Clinical Note 06-23-2022 Note Date & [...] authenticated by: KYLE DOLAN Date: 2022-06-22 23:22 [facility] Summary Purpose Family History No Family History Records FoundNo Family History Records FoundNo Family History Records Found Advance Directives No Advanced Directives Records FoundNo Advanced Directives Records FoundNo Advanced Directives Records Found Additional Source Comments (unrecognized sect ion and content) No Status Records FoundNo Status Records FoundNo Status Records Found INFORMATION SOURCE (unrecogn ized section and content) DATE CREATED AUTHOR 06/11/2020 [facility] DATE CREATED AUTHOR AUTHOR'S ORGANIZ ATION 11/01/[address] 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 [facility]. provides no warranty or guarantee of the accuracy or completeness of information in this document.
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
[2023-07-26 15:42] LABS: Basophils Absolute Auto 0.1 10^3/uL (0.0-0.1); Basophils Percent Auto 0.4 % (0.2-2.0); Eosinophils Absolute Auto 0.3 10^3/uL (0.0-0.7); Eosinophils Percent Auto 1.1 % (0.9-7.0); Hematocrit 45.8 % (42.0-54.0); Hemoglobin 14.1 g/dL (14.0-18.0); Immature Granulocytes Abs Auto 0.11 10^3/uL (0.00-0.03); Immature Granulocytes Pct Auto 0.5 % (0.0-0.5); Lymphocytes Absolute Auto 1.4 10^3/uL (1.2-3.8); Lymphocytes Percent Auto 6.2 % (20.5-60.0); Mean Corpuscular HGB Conc 30.8 g/dL (29.9-35.2); Mean Corpuscular Volume 94.2 fL (80.0-94.0); Mean Platelet Volume 9.4 fL (9.5-13.5); Monocytes Percent Auto 4.2 % (1.7-12.0); Neutrophils Absolute Auto 19.9 10^3/uL (1.4-6.5); Neutrophils Percent Auto 87.6 % (43.0-75.0); Red Blood Count 4.86 10^6/uL (4.70-6.10); Red Cell Distribution Width 15.1 % (11.0-15.0); White Blood Count 22.7 10^3/uL (4.0-11.0)
[2023-07-26] MEDS: ONDANSETRON PF 4 MG/2 ML VIAL IV (15:47)
[2023-07-26] MEDS: CEFOXITIN SODIUM 2 GM in 0.9 % SODIUM CHLORIDE 100 ML IV (15:49)
[2023-07-26 15:56] LABS: Magnesium 2.2 mg/dL (1.8-2.4); Platelet Count 538 10^3/uL (150-450); Troponin I High Sensitivity 33.3 pg/mL (4.0-76.1)
[2023-07-26 15:57] LABS: Anion Gap 10.6; Aspartate Amino Transferase 35 U/L (15-37); BUN Creatinine Ratio 37.6; Bilirubin Total 0.3 mg/dL (0.2-1.0); Calcium 10.6 mg/dL (8.5-10.1); Carbon Dioxide 30.9 mmol/L (21.0-32.0); Chloride 103 mmol/L (98-107); Estimated GFR (African America >60 (>=60); Estimated GFR (Non-African Ame >60 (>=60); Glucose 148 mg/dL (74-106); Sodium 139 mmol/L (136-145)
[2023-07-26 15:58] LABS: Alanine Aminotransferase 48 U/L (16-63); Albumin Globulin Ratio 0.4; Albumin Level 2.7 g/dL (3.4-5.0); Alkaline Phosphatase 104 U/L (46-116); Globulin 6.1 g/dL; Total Protein 8.8 g/dL (6.4-8.2)
[2023-07-26 16:00] LABS: Potassium 5.5 mmol/L (3.5-5.1)
[2023-07-26 16:01] LABS: Lactate/Lactic Acid 2.8 mmol/L (0.4-2.0)
[2023-07-26 16:07] LABS: pH VBG 7.303 (7.330-7.430)
[2023-07-26 16:08] LABS: PCO2 VBG 68.2 mmHg (40.0-52.0)
[2023-07-26 16:21] LABS: Valproic Acid 27.3 ug/mL (50.0-100.0)
[2023-07-26 16:22] LABS: INR 0.95; Partial Thromboplastin Time 22.5 sec (22.3-36.2); Prothrombin Time 10.1 sec (9.0-11.6)
[2023-07-26] MEDS: ACETAMINOPHEN 650 MG RECTAL SUPPOSITORY PR (16:30)
[2023-07-26 16:41] LABS: Influenza Virus A Antigen Negative; Influenza Virus B Antigen Negative; Internal Control Within Normal Limits; Respiratory Syncytial Virus Not Detected (NOT DETECTE); SARS-CoV-2 Ag NEGATIVE (NEGATIVE)
[2023-07-26 16:41] LABS: PROCALCITONIN 0.16 ng/mL (0.00-0.50)
--- OUTSIDE RECORDS SUMMARY | 2023-07-26 17:50 | XMS_ITS | CCD ---
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 Name Role Phone REQUEST, NONE LISTED Primary Care Unavailable TD HURST Attending Unavailable TD HURST Consulting Unavailable TD HURST Admitting Unavailable Guilherme [facility] Provider [facility] Primary Care Unavailable MELODIE NIXON Referring Unavailable [facility]HER[facility] Referring Unavailable GUILHERME, [facility] Primary Care Unavailable SCOUT [place] Referring Unavailable [facility]HERME[facility] Primary Care Unavailable ULISES ., DR [...] Facility (2 sources) Propoxyphene Drug Allergy [facility] (1 source) Penicillins Drug allergy (disorder) 01-30-2014 [facility] Problems Active Problems Problem Classification [...] 06-25-2022 Chronic Other aftercare (1 source) 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 Brittanie Burns Basophils/100 WBC (Bld) 0.8 % Normal 0.2-2.0 [facility] Comment on above: Performed By: #### V ITB1T #### [facility] [address] [place] [address] Dr. Brittanie Burns EO # 0.6 103/ul Normal 0.0-0.7 [facility] Comment on above: Performed By: #### V ITB1T #### [facility] [address] [place] [address] Dr. Brittanie Burns Eosinophils/100 WBC (Bld) 6.6 % Normal 0.9-7.0 [facility] Comment on above: Performed By: #### V ITB1T #### [facility] [address] [place] [address] Dr. Brittanie Burns Erythrocyte distribution width (RBC) [Ratio] 14.8 % Normal 11.0-15.0 [facility] Comment on above: Performed By: #### V ITB1T #### [facility] [address] [place] [address] Dr. Brittanie Burns Hematocrit (Bld) [Volume fraction] 35.6 % Critically low 42.0-54.0 [facility] Comment on above: Performed By: #### V ITB1T #### [facility] [address] [place] [address] Dr. Brittanie Burns Hemoglobin (Bld) [Mass/Vol] 11.7 g/dL Critically low 14.0-18.0 [facility] Comment on above: Performed By: #### V ITB1T #### [facility] [address] [place] [address] Dr. Brittanie Burns IG # 0.04 10e3/ul Critically high 0.00-0.03 [facility] Comment on above: Performed By: #### V ITB1T #### [facility] [address] [place] [address] Dr. Brittanie Burns IG % 0.5 % Normal 0.0-0.5 [facility] Comment on above: Performed By: #### V ITB1T #### [facility] [address] [place] [address] Dr. Brittanie Burns LYMPH # 2.0 103/ul Normal 1.2-3.8 [facility] Comment on above: Performed By: #### V ITB1T #### [facility] [address] [place] [address] Dr. Brittanie Burns Lymphocytes/100 WBC (Bld) 22.7 % Normal 20.5-60.0 [facility] Comment on above: Performed By: #### V ITB1T #### [facility] [address] [place] [address] Dr. Brittanie Burns MANUAL DIFF REQ NO Normal The [facility] Comment on above: Performed By: #### V ITB1T #### [facility] [address] [place] [address] Dr. Brittanie Burns MCH (RBC) [Entitic mass] 30.8 pg Normal 25.9-34.0 [facility] Comment on above: Performed By: #### V ITB1T #### [facility] [address] [place] [address] Dr. Brittanie Burns MCHC (RBC) [Mass/Vol] 32.9 g/dL Normal 29.9-35.2 [facility] Comment on above: Performed By: #### V ITB1T #### [facility] [address] [place] [address] Dr. Brittanie Burns MCV (RBC) [Entitic vol] 93.7 fL Normal 80.0-94.0 [facility] Comment on above: Performed By: #### V ITB1T #### [facility] [address] [place] [address] Dr. Brittanie Burns MONO # 1.1 103/ul Critically high 0.3-0.[address] [facility] Comment on above: Performed By: #### V ITB1T #### [facility] [address] [place] [address] Dr. Brittanie Burns Monocytes/100 WBC (Bld) 12.7 % Critically high 1.7-12.0 [facility] Comment on above: Performed By: #### V ITB1T #### [facility] [address] [address] [address] Brittanie Burns NEUT # 4.9 103/ul Normal 1.4-6.5 [facility] Comment on above: Performed By: #### V ITB1T #### [facility] [address] [place] [address] Dr. Brittanie Burns Neutrophils/100 WBC (Bld) 56.7 % Normal 43.0-75.0 [facility] Comment on above: Performed By: #### V ITB1T #### [facility] [address] [place] [address] Dr. Brittanie Burns Platelet mean volume (Bld) [Entitic vol] 9.2 fL Critically low 9.5-13.5 [facility] Comment on above: Performed By: #### V ITB1T #### [facility] [address] [place] [address] Dr. Brittanie Burns PLT 343 103/ul Normal 150-450 [facility] Comment on above: Performed By: #### V ITB1T #### [facility] [address] [place] [address] Dr. Brittanie Burns RBC 3.80 106/ul Critically low 4.70-6.10 [facility] Comment on above: Performed By: #### V ITB1T #### [facility] [address] [place] [address] Dr. Brittanie Burns WBC 8.7 103/ul Normal 4.0-11.0 [facility] Comment on above: Performed By: #### V ITB1T #### [facility] [address] [place] [address] Dr. Brittanie Burns GLYCOHEMOGLOBIN A1Con 2022 ADA RECOMMENDATION SEE BELOW Normal [facility] Comment on above: Result Comment: ADA RECOMMENDED LIMIT 4.0 - 6.0 ADA THERAPEUTIC TARGET < 7.0 ACTION SUGGESTED > 7.0 Performed By: #### D RUGRPD #### [facility] [address] [place] [address] Dr. Brittanie Burns Glucose [Mass/Vol] 117 mg/dL Normal [facility] Comment on above: Performed By: #### D RUGRPD #### [facility] [address] [place] [address] Dr. Brittanie Burns HbA1c (Bld) [Mass fraction] 5.7 % Normal 4.5-6.2 [facility] Comment on above: Performed By: #### D RUGRPD #### [facility] [address] [place] [address] Dr. Brittanie Burns PROF 14(COMP METB)on 023 Albumin [Mass/Vol] 2.8 g/dL Critically low 3.4-5.0 [facility] Comment on above: Performed By: #### C BC #### [facility] [address] [place] [address] Dr. Brittanie Burns Albumin/Globulin [Mass ratio] 0.6 {ratio} Normal [facility] Comment on above: Performed By: #### C BC #### [facility] [address] [place] [address] Dr. Brittanie Burns ALP [Catalytic activity/Vol] 68 U/L Normal 46-116 [facility] Comment on above: Performed By: #### C BC #### [facility] [address] [place] [address] Dr. Brittanie Burns ALT [Catalytic activity/Vol] 18 U/L Normal 16-63 [facility] Comment on above: Performed By: #### C BC #### [facility] [address] [place] [address] Dr. Brittanie Burns Anion gap [Moles/Vol] 11.4 mmol/L Normal [facility] Comment on above: Performed By: #### C BC #### [facility] [address] [place] [address] Dr. Brittanie Burns AST [Catalytic activity/Vol] 22 U/L Normal 15-37 [facility] Comment on above: Performed By: #### C BC #### [facility] [address] [place] [address] Dr. Brittanie Burns Bilirubin [Mass/Vol] 0.3 mg/dL Normal 0.2-1.0 [facility] Comment on above: Performed By: #### C BC #### [facility] [address] [address] [address] Brittanie Burns Calcium [Mass/Vol] 9.5 mg/dL Normal 8.5-10.1 [facility] Comment on above: Performed By: #### C BC #### [facility] [address] [address] [address] Brittanie Burns Chloride [Moles/Vol] 102 mmol/L Normal 98-107 [facility] Comment on above: Performed By: #### C BC #### [facility] [address] [address] [address] Brittanie Burns CO2 [Moles/Vol] 31.3 mmol/L Normal 21.0-32.0 [facility] Comment on above: Performed By: #### C BC #### [facility] [address] [place] [address] Dr. Brittanie Burns Creatinine [Mass/Vol] 1.18 mg/dL Normal 0.70-1.30 [facility] Comment on above: Performed By: #### C BC #### [facility] [address] [place] [address] Dr. Brittanie Burns EGFR-AF BERMUDIAN >60 Normal >=60 [facility] Comment on above: Performed By: #### C BC #### [facility] [address] [place] [address] Dr. Brittanie Burns EGFR-NON AF BERMUDIAN >60 Normal >=60 [facility] Comment on above: Performed By: #### C BC #### [facility] [address] [place] [address] Dr. Brittanie Burns Globulin (S) [Mass/Vol] 4.9 g/dL Normal [facility] Comment on above: Performed By: #### C BC #### [facility] [address] [place] [address] Dr. Brittanie Burns Glucose [Mass/Vol] 133 mg/dL Critically high 74-106 [facility] Comment on above: Performed By: #### C BC #### [facility] [address] [place] [address] Dr. Brittanie Burns Potassium [Moles/Vol] 3.7 mmol/L Normal 3.5-5.1 [facility] Comment on above: Performed By: #### C BC #### [facility] [address] [address] [address] Brittanie Burns Protein [Mass/Vol] 7.7 g/dL Normal 6.4-8.2 [facility] Comment on above: Performed By: #### C BC #### [facility] [address] [address] [address] Brittanie Burns Sodium [Moles/Vol] 141 mmol/L Normal 136-145 [facility] Comment on above: Performed By: #### C BC #### [facility] [address] [place] [address] Dr. Brittanie Burns Urea nitrogen [Mass/Vol] 25.0 mg/dL Critically high 7.0-18.0 [facility] Comment on above: Performed By: #### C BC #### [facility] [address] [place] [address] Dr. Brittanie Burns Urea nitrogen/Creatinine [Mass ratio] 21.2 mg/mg Normal [facility] Comment on above: Performed By: #### C BC #### [facility] [address] [place] [address] Dr. Brittanie Burns TSHon 12-21-2022 TSH 2.348 uIU/mL Normal 0.358-3.740 [facility] Comment on above: Performed By: #### B 12FOL #### [facility] [address] [place] [address] Dr. Brittanie Burns VITAMIN D 25 OHon 12-21-2022 VIT D 25-OH 41.1 ng/mL Normal [facility] Comment on above: Performed By: #### B 12FOL #### [facility] [address] [place] [address] Dr. Brittanie Burns VIT D RANGES SEE BELOW Normal [facility] Comment on above: Result Comment: <20 ng/mL Vit D deficient 20 - <30 ng/mL Vit D insufficient 30 - 100 ng/mL Vit D sufficient >100 ng/mL Potential Toxicity Performed By: #### B 12FOL #### [facility] [address] [place] [address] Dr. Brittanie Burns PROF 14(COMP METB)on 023 Albumin [Mass/Vol] 2.7 g/dL Critically low 3.4-5.0 [facility] Comment on above: Performed By: #### C BC #### [facility] [address] [place] [address] Dr. Brittanie Burns Albumin/Globulin [Mass ratio] 0.6 {ratio} Normal [facility] Comment on above: Performed By: #### C BC #### [facility] [address] [place] [address] Dr. Brittanie Burns ALP [Catalytic activity/Vol] 68 U/L Normal 46-116 [facility] Comment on above: Performed By: #### C BC #### [facility] [address] [place] [address] Dr. Brittanie Burns ALT [Catalytic activity/Vol] 27 U/L Normal 16-63 [facility] Comment on above: Performed By: #### C BC #### [facility] [address] [place] [address] Dr. Brittanie Burns Anion gap [Moles/Vol] 12.3 mmol/L Normal [facility] Comment on above: Performed By: #### C BC #### [facility] [address] [place] [address] Dr. Brittanie Burns AST [Catalytic activity/Vol] 40 U/L Critically high 15-37 [facility] Comment on above: Performed By: #### C BC #### [facility] [address] [place] [address] Dr. Brittanie Burns Bilirubin [Mass/Vol] 0.2 mg/dL Normal 0.2-1.0 [facility] Comment on above: Performed By: #### C BC #### [facility] [address] [place] [address] Dr. Brittanie Burns Calcium [Mass/Vol] 10.0 mg/dL Normal 8.5-10.1 [facility] Comment on above: Performed By: #### C BC #### [facility] [address] [address] [address] Brittanie Burns Chloride [Moles/Vol] 102 mmol/L Normal 98-107 [facility] Comment on above: Performed By: #### C BC #### [facility] [address] [address] [address] Brittanie Burns CO2 [Moles/Vol] 32.2 mmol/L Critically high 21.0-32.0 [facility] Comment on above: Performed By: #### C BC #### [facility] [address] [address] [address] Brittanie Burns Creatinine [Mass/Vol] 1.09 mg/dL Normal 0.70-1.30 [facility] Comment on above: Performed By: #### C BC #### [facility] [address] [place] [address] Dr. Brittanie Burns EGFR-AF BERMUDIAN >60 Normal >=60 [facility] Comment on above: Performed By: #### C BC #### [facility] [address] [place] [address] Dr. Brittanie Burns EGFR-NON AF BERMUDIAN >60 Normal >=60 [facility] Comment on above: Performed By: #### C BC #### [facility] [address] [place] [address] Dr. Brittanie Burns Globulin (S) [Mass/Vol] 4.9 g/dL Normal [facility] Comment on above: Performed By: #### C BC #### [facility] [address] [place] [address] Dr. Brittanie Burns Glucose [Mass/Vol] 98 mg/dL Normal 74-106 [facility] Comment on above: Performed By: #### C BC #### [facility] [address] [place] [address] Dr. Brittanie Burns Potassium [Moles/Vol] 4.5 mmol/L Normal 3.5-5.1 [facility] Comment on above: Performed By: #### C BC #### [facility] [address] [place] [address] Dr. Brittanie Burns Protein [Mass/Vol] 7.6 g/dL Normal 6.4-8.2 [facility] Comment on above: Performed By: #### C BC #### [facility] [address] [address] [address] Brittanie Burns Sodium [Moles/Vol] 142 mmol/L Normal 136-145 [facility] Comment on above: Performed By: #### C BC #### [facility] [address] [address] [address] Brittanie Burns Urea nitrogen [Mass/Vol] 26.0 mg/dL Critically high 7.0-18.0 [facility] Comment on above: Performed By: #### C BC #### [facility] [address] [address] [address] Brittanie Burns Urea nitrogen/Creatinine [Mass ratio] 23.9 mg/mg Normal [facility] Comment on above: Performed By: #### C BC #### [facility] [address] [address] [address] Brittanie Burns [facility]ATE 64 mm/hr Critically high <=[address] [facility] Comment on above: Performed By: #### C BC #### [facility] [address] [address] [address] Brittanie Burns URIC ACID SERUMon 11-18-2022 Urate [Mass/Vol] 4.4 mg/dL Normal 3.5-7.2 [facility] Comment on above: Performed By: #### C BC #### [facility] [address] [address] [address] Brittanie Burns Basic Metabolic Panelon 10-22 Anion gap [Moles/Vol] 7 mmol/L Low 9 - 17 mmol/L [facility] Calcium [Mass/Vol] 9.8 mg/dL 8.6 - 10. 4 mg/dL [facility] Chloride [Moles/Vol] 99 mmol/L 98 - 10 7 mmol/L [facility] CO2 [Moles/Vol] 31 mmol/L 20 - 31 mmol/L [facility] Creatinine [Mass/Vol] 1.36 mg/dL High 0.70 - 1.20 mg/dL [facility] GFR/1.73 sq M.predicted MDRD (S/P/Bld) [Vol rate/Area] 55 mL/min/{1.73_m2} Low - PINF [facility] Comment on above: These results are not [...] 114 mg/dL High 70 - 99 mg/dL [facility] Interpretation and review of laboratory results Abnormal [facility] Potassium [Moles/Vol] 4.5 mmol/L 3.7 - 5.3 mmol/L [facility] Sodium [Moles/Vol] 137 mmol/L 135 - 144 mmol/L [facility] Urea nitrogen [Mass/Vol] 40 mg/dL High 8 - 23 mg/dL [facility] Urea nitrogen/Creatinine (Bld) [Mass ratio] 29 High 9 - 20 [facility] Basic Metabolic Profon 10-31 Anion gap [Moles/Vol] 7 mmol/L Low 9-17 [facility] Comment on above: Performed By: #### B MP #### [facility] [address] [place] [address] Art Tracer: Oscar Watkins MD BUN/CRE Ratio 29 High 9-20 [facility] Comment on above: Performed By: #### B MP #### [facility] [address] [place] [address] Art Tracer: Oscar Watkins MD Calcium [Mass/Vol] 9.8 mg/dL Normal 8.6-10.4 [facility] Comment on above: Performed By: #### B MP #### [facility] [address] [place] [address] Art Tracer: Oscar Watkins MD Chloride [Moles/Vol] 99 mmol/L Normal 98-107 [facility] Comment on above: Performed By: #### B MP #### [facility] [address] [place] [address] Art Tracer: Oscar Watkins MD CO2 [Moles/Vol] 31 mmol/L Normal 20-31 [facility] Comment on above: Performed By: #### B MP #### [facility] [address] [place] [address] Art Tracer: Oscar Watkins MD Creatinine [Mass/Vol] 1.36 mg/dL High 0.70-1.20 [facility] Comment on above: Performed By: #### B MP #### [facility] [address] [place] [address] Art Tracer: Oscar Watkins MD GFR/1.73 sq M.predicted among non-blacks MDRD (S/P/Bld) [Vol rate/Area] 55 mL/min/{1.73_m2} Low >60 [facility] Comment on above: Result Comment: These [...] secretion. Performed By: #### B MP #### [facility] [address] [place] [address] Art Tracer: Oscar Watkins MD Glucose [Mass/Vol] 114 mg/dL High 70-99 [facility] Comment on above: Performed By: #### B MP #### [facility] [address] [place] [id number] Art Tracer: Oscar Watkins MD Potassium [Moles/Vol] 4.5 mmol/L Normal 3.7-5.3 [facility] Comment on above: Performed By: #### B MP #### [facility] [address] [place], [place] [id number] Art Tracer: Oscar Watkins MD Sodium [Moles/Vol] 137 mmol/L Normal 135-144 [facility] Comment on above: Performed By: #### B MP #### [facility] [address] [place], [place] [id number] Art Tracer: Oscar Watkins MD Urea nitrogen [Mass/Vol] 40 mg/dL High 8- [facility] Comment on above: Performed By: #### B MP #### [facility] [address] [place], [place] [id number] Art Tracer: Oscar Watkins MD Lipid Panelon 10-26-2022 Cholesterol [Mass/Vol] 146 mg/dL NINF - 200 mg/dL [facility] Comment on above: Cholesterol Guidelines: <200 Desirable 200-240 Borderline >240 Undesirable Cholesterol in HDL [Mass/Vol] 24 mg/dL Low 40 - PINF mg/dL [facility] Comment on above: HDL Guidelines: <40 Undesirable 40-59 Borderline >59 Desirable Cholesterol in LDL [Mass/Vol] 97 mg/dL 0 - 130 mg/dL [facility] Comment on above: LDL Guidelines: <100 Desirable 100-129 Near to/above Desirable 130-159 Borderline >159 Undesirable Direct (measured) LDL and calculated LDL are not interchangeable tests. Cholesterol.total/Chol esterol in HDL [Mass ratio] 6.1 {ratio} High NINF - [address] [facility] Interpretation and review of laboratory results Abnormal [facility] Triglyceride [Mass/Vol] 123 mg/dL NINF - 150 mg/dL [facility] Comment on above: Triglyceride Guidelines: <150 Desirable 150-199 Borderline 200-499 High >499 Very high Based on AHA Guidelines for fasting triglyceride, April 2012. [facility] Lipid Profileon 10-26-2022 Cholesterol [Mass/Vol] 146 mg/dL Normal <200 [facility] Comment on above: Result Comment: Cholesterol Guidelines: <200 Desirable 200-240 Borderline >240 Undesirable Performed By: #### L IPR #### [facility] [employer] [facility] [place] [address] Art Tracer: Moo Calero MD Cholesterol in HDL [Mass/Vol] 24 mg/dL Low >40 [facility] Comment on above: Result Comment: HDL Guidelines: <40 Undesirable 40-59 Borderline >59 Desirable Performed By: #### L IPR #### [facility] [employer] [address] [place] [address] Art Tracer: Moo Calero MD Cholesterol in LDL [Mass/Vol] 97 mg/dL Normal 0-130 [facility] Comment on above: Result Comment: LDL Guidelines: <100 Desirable 100-129 Near to/above Desirable 130-159 Borderline >159 Undesirable Direct (measured) LDL and calculated LDL are not interchangeable tests. Performed By: #### L IPR #### [facility] [employer] [address] [place] [address] Art Tracer: Moo Calero MD Cholesterol.total/Chol esterol in HDL [Mass ratio] 6.1 {ratio} High <5 [facility] Comment on above: Performed By: #### L IPR #### [facility] [employer] [address] [place] [address] Art Tracer: Moo Calero MD Triglyceride [Mass/Vol] 123 mg/dL Normal <150 [facility] Comment on above: Result Comment: Triglyceride Guidelines: <150 Desirable 150-199 Borderline 200-499 High >499 Very high Based on AHA Guidelines for fasting triglyceride, April 2012. Performed By: #### L IPR #### [facility] [employer] [address] [place] [id number] Art Tracer: Moo Calero MD Basic Metabolic Profon 10-24 Anion gap [Moles/Vol] 13 mmol/L Normal 9-17 [facility] Comment on above: Performed By: #### B MP #### [facility] [address] [place], [place] [id number] Art Tracer: Oscar Watkins MD BUN/CRE Ratio 21 High 9-20 [facility] Comment on above: Performed By: #### B MP #### [facility] [address] [place] [id number] Art Tracer: Oscar Watkins MD Calcium [Mass/Vol] 9.8 mg/dL Normal 8.6-10.4 [facility] Comment on above: Performed By: #### B MP #### [facility] [address] Dr. [place] [id number] Art Tracer: Oscar Watkins MD Chloride [Moles/Vol] 109 mmol/L High 98-107 [facility] Comment on above: Performed By: #### B MP #### [facility] [address] [place], [place] [id number] Art Tracer: Oscar Watkins MD CO2 [Moles/Vol] 27 mmol/L Normal 20-31 [facility] Comment on above: Performed By: #### B MP #### [facility] [address] [place], [place] [id number] Art Tracer: Oscar Watkins MD Creatinine [Mass/Vol] 1.68 mg/dL High 0.70-1.20 [facility] Comment on above: Performed By: #### B MP #### [facility] [address] [place], [place] [id number] Art Tracer: Oscar Watkins MD GFR/1.73 sq M.predicted among non-blacks MDRD (S/P/Bld) [Vol rate/Area] 43 mL/min/{1.73_m2} Low >60 [facility] Comment on above: Result Comment: These [...] secretion. Performed By: #### B MP #### [facility] [address] [place], [place] [id number] Art Tracer: Oscar Watkins MD Glucose [Mass/Vol] 106 mg/dL High 70-99 [facility] Comment on above: Performed By: #### B MP #### [facility] [address] [place], [place] [id number] Art Tracer: Oscar Watkins MD Potassium [Moles/Vol] 3.6 mmol/L Low 3.7-5.3 [facility] Comment on above: Performed By: #### B MP #### [address] [place], [place] [id number] Art Tracer: Oscar Watkins MD Sodium [Moles/Vol] 149 mmol/L High 135-144 [facility] Comment on above: Performed By: #### B MP #### [address] [place], [place] [id number] Art Tracer: Oscar Watkins MD Urea nitrogen [Mass/Vol] 35 mg/dL High 8-23 [facility] Comment on above: Performed By: #### B MP #### [facility] [address] [place] [address] Dr. [place], [place] [id number] Art Tracer: Oscar Watkins MD CBC AUTO DIFFon 10-21-2022 BASO # 0.1 103/ul Normal 0.0-0.1 [facility] Comment on above: Performed By: #### C BC #### [facility] [address] [place], [place] [address] Dr. Brittanie Burns Basophils/100 WBC (Bld) 0.6 % Normal 0.2-2.0 [facility] Comment on above: Performed By: #### C BC #### [facility] [address] [place] [address] Dr. Brittanie Burns EO # 0.4 103/ul Normal 0.0-0.7 [facility] Comment on above: Performed By: #### C BC #### [facility] [address] [place] [address] Dr. Brittanie Burns Eosinophils/100 WBC (Bld) 3.9 % Normal 0.9-7.0 [facility] Comment on above: Performed By: #### C BC #### [facility] [address] [place] [address] Dr. Brittanie Burns Erythrocyte distribution width (RBC) [Ratio] 13.5 % Normal 11.0-15.0 [facility] Comment on above: Performed By: #### C BC #### [facility] [address] [place] [address] Dr. Brittanie Burns Hematocrit (Bld) [Volume fraction] 38.1 % Critically low 42.0-54.0 [facility] Comment on above: Performed By: #### C BC #### [facility] [address] [place] [address] Dr. Brittanie Burns Hemoglobin (Bld) [Mass/Vol] 13.2 g/dL Critically low 14.0-18.0 [facility] Comment on above: Performed By: #### C BC #### [facility] [address] [place] [address] Dr. Brittanie Burns IG # 0.02 10e3/ul Normal 0.00-0.03 [facility] Comment on above: Performed By: #### C BC #### [facility] [address] [place] [address] Dr. Brittanie Burns IG % 0.2 % Normal 0.0-0.5 [facility] Comment on above: Performed By: #### C BC #### [facility] [address] [place] [address] Dr. Brittanie Burns LYMPH # 2.2 103/ul Normal 1.2-3.8 [facility] Comment on above: Performed By: #### C BC #### [facility] [address] [place] [address] Dr. Brittanie Burns Lymphocytes/100 WBC (Bld) 23.4 % Normal 20.5-60.0 [facility] Comment on above: Performed By: #### C BC #### [facility] [address] [place] [address] Dr. Brittanie Burns MANUAL DIFF REQ NO Normal [facility] Comment on above: Performed By: #### C BC #### [facility] [address] [place] [address] Dr. Brittanie Burns MCH (RBC) [Entitic mass] 30.6 pg Normal 25.9-34.0 [facility] Comment on above: Performed By: #### C BC #### [facility] [address] [place] [address] Dr. Brittanie Burns MCHC (RBC) [Mass/Vol] 34.6 g/dL Normal 29.9-35.2 [facility] Comment on above: Performed By: #### C BC #### [facility] [address] [place] [address] Dr. Brittanie Bruns MCV (RBC) [Entitic vol] 88.2 fL Normal 80.0-94.0 [facility] Comment on above: Performed By: #### C BC #### [facility] [address] [place] [address] Dr. Brittanie Burns MONO # 1.3 103/ul Critically high 0.3-0.[address] [facility] Comment on above: Performed By: #### C BC #### [facility] [address] [place] [address] Dr. Brittanie Burns Monocytes/100 WBC (Bld) 13.5 % Critically high 1.7-12.0 [facility] Comment on above: Performed By: #### C BC #### [facility] [address] [place] [address] Dr. Brittanie Burns NEUT # 5.6 103/ul Normal 1.4-6.5 [facility] Comment on above: Performed By: #### C BC #### [facility] [address] [place] [address] [address] Brittanie Burns Neutrophils/100 WBC (Bld) 58.4 % Normal 43.0-75.0 [facility] Comment on above: Performed By: #### C BC #### [facility] [address] [place] [address] [address] Brittanie Burns Platelet mean volume (Bld) [Entitic vol] 9.3 fL Critically low 9.5-13.5 [facility] Comment on above: Performed By: #### C BC #### [facility] [address] [place] [address] [address] Brittanie Burns PLT 297 103/ul Normal 150-450 [facility] Comment on above: Performed By: #### C BC #### [facility] [address] [address] [address] Brittanie Burns RBC 4.32 106/ul Critically low 4.70-6.10 [facility] Comment on above: Performed By: #### C BC #### [facility] [address] [address] [address] Brittanie Burns WBC 9.6 103/ul Normal 4.0-11.0 [facility] Comment on above: Performed By: #### C BC #### [facility] [address] [address] [address] Brittanie Burns CULTURE BLOODon 10-21-2022 Microscopic [...] F Trimethoprim/Sulfame thoxazole 40 S F Normal [facility] Comment on above: Performed By: #### B LDCX2 #### [facility] [address] [place] [address] Dr. Brittanie Burns PROF 14(COMP METB)on 023 Albumin [Mass/Vol] 3.1 g/dL Critically low 3.4-5.0 [facility] Comment on above: Performed By: #### D RUGRPD #### [facility] [address] [place] [address] Dr. Brittanie Burns Albumin/Globulin [Mass ratio] 0.8 {ratio} Normal [facility] Comment on above: Performed By: #### D RUGRPD #### [facility] [address] [place] [address] Dr. Brittanie Burns ALP [Catalytic activity/Vol] 76 U/L Normal 46-116 [facility] Comment on above: Performed By: #### D RUGRPD #### [facility] [address] [place] [address] Dr. Brittanie Burns ALT [Catalytic activity/Vol] 16 U/L Normal 16-63 [facility] Comment on above: Performed By: #### D RUGRPD #### [facility] [address] [place] [address] Dr. Brittanie Burns Anion gap [Moles/Vol] 13.5 mmol/L Normal Th [facility] Comment on above: Performed By: #### D RUGRPD #### [facility] [address] [place] [address] Dr. Brittanie Burns AST [Catalytic activity/Vol] 14 U/L Critically low 15-37 [facility] Comment on above: Performed By: #### D RUGRPD #### [facility] [address] [place] [address] Dr. Brittanie Burns Bilirubin [Mass/Vol] 0.6 mg/dL Normal 0.2-1.0 [facility] Comment on above: Performed By: #### D RUGRPD #### [facility] [address] [place] [address] Dr. Brittanie Burns Calcium [Mass/Vol] 8.9 mg/dL Normal 8.5-10.1 [facility] Comment on above: Performed By: #### D RUGRPD #### [facility] [address] [place] [address] [address] Brittanie Burns Chloride [Moles/Vol] 107 mmol/L Normal 98-107 [facility] Comment on above: Performed By: #### D RUGRPD #### [facility] [address] [place] [address] [address] Brittanie Burns CO2 [Moles/Vol] 26.9 mmol/L Normal 21.0-32.0 [facility] Comment on above: Performed By: #### D RUGRPD #### [facility] [address] [place] [address] Dr. Brittanie Burns Creatinine [Mass/Vol] 2.02 mg/dL Critically high 0.70-1.30 [facility] Comment on above: Performed By: #### D RUGRPD #### [facility] [address] [place] [address] Dr. Brittanie Burns EGFR-AF BERMUDIAN 40 mL/min/1.73m2 Critically low >=60 [facility] Comment on above: Performed By: #### D RUGRPD #### [facility] [address] [place] [address] Dr. Brittanie Burns EGFR-NON AF BERMUDIAN 33 mL/min/1.73m2 Critically low >=60 [facility] Comment on above: Performed By: #### D RUGRPD #### [facility] [address] [place] [address] Dr. Brittanie Burns Globulin (S) [Mass/Vol] 3.7 g/dL Normal [facility] Comment on above: Performed By: #### D RUGRPD #### [facility] [address] [place] [address] Dr. Brittanie Burns Glucose [Mass/Vol] 95 mg/dL Normal 74-106 [facility] Comment on above: Performed By: #### D RUGRPD #### [facility] [address] [place] [address] [address] Brittanie Burns Potassium [Moles/Vol] 3.4 mmol/L Critically low 3.5-5.1 [facility] Comment on above: Performed By: #### D RUGRPD #### [facility] [address] [place] [address] Dr. Brittanie Burns Protein [Mass/Vol] 6.8 g/dL Normal 6.4-8.2 [facility] Comment on above: Performed By: #### D RUGRPD #### [facility] [address] [place] [address] Dr. Brittanie Burns Sodium [Moles/Vol] 144 mmol/L Normal 136-145 [facility] Comment on above: Performed By: #### D RUGRPD #### [facility] [address] [place] [address] Dr. Brittanie Burns Urea nitrogen [Mass/Vol] 25.0 mg/dL Critically high 7.0-18.0 [facility] Comment on above: Performed By: #### D RUGRPD #### [facility] [address] [place] [address] Dr. Brittanie Burns Urea nitrogen/Creatinine [Mass ratio] 12.4 mg/mg Normal [facility] Comment on above: Performed By: #### D RUGRPD #### [facility] [address] [place] [address] Dr. Brittanie Burns CBC AUTO DIFFon 10-20-2022 BASO # 0.1 103/ul Normal 0.0-0.1 [facility] Comment on above: Performed By: #### D RUGRPD #### [facility] [address] [place] [address] Dr. Brittanie Burns Basophils/100 WBC (Bld) 0.7 % Normal 0.2-2.0 [facility] Comment on above: Performed By: #### D RUGRPD #### [facility] [address] [place] [address] Dr. Brittanie Burns EO # 0.3 103/ul Normal 0.0-0.7 The [facility] Comment on above: Performed By: #### D RUGRPD #### [facility] [address] [place] [address] [address] Brittanie Burns Eosinophils/100 WBC (Bld) 2.7 % Normal 0.9-7.0 [facility] Comment on above: Performed By: #### D RUGRPD #### [facility] [address] [place] [address] Dr. Brittanie Burns Erythrocyte distribution width (RBC) [Ratio] 13.4 % Normal 11.0-15.0 [facility] Comment on above: Performed By: #### D RUGRPD #### [facility] [address] [place] [address] Dr. Brittanie Burns Hematocrit (Bld) [Volume fraction] 39.2 % Critically low 42.0-54.0 [facility] Comment on above: Performed By: #### D RUGRPD #### [facility] [address] [place] [address] Dr. Brittanie Burns Hemoglobin (Bld) [Mass/Vol] 13.7 g/dL Critically low 14.0-18.0 [facility] Comment on above: Performed By: #### D RUGRPD #### [facility] [address] [place] [address] Dr. Brittanie Burns IG # 0.04 10e3/ul Critically high 0.00-0.03 [facility] Comment on above: Performed By: #### D RUGRPD #### [facility] [address] [place] [address] Dr. Brittanie Burns IG % 0.4 % Normal 0.0-0.5 The [facility] Comment on above: Performed By: #### D RUGRPD #### [facility] [address] [place] [address] Dr. Brittanie Burns LYMPH # 2.0 103/ul Normal 1.2-3.8 The [facility] Comment on above: Performed By: #### D RUGRPD #### [facility] [address] [place] [address] Dr. Brittanie Burns Lymphocytes/100 WBC (Bld) 19.9 % Critically low 20.5-60.0 [facility] Comment on above: Performed By: #### D RUGRPD #### [facility] [address] [place] [address] Dr. Brittanie Burns MANUAL DIFF REQ NO Normal [facility] Comment on above: Performed By: #### D RUGRPD #### [facility] [address] [place] [address] Dr. Brittanie Burns MCH (RBC) [Entitic mass] 30.7 pg Normal 25.9-34.0 [facility] Comment on above: Performed By: #### D RUGRPD #### [facility] [address] [place] [address] Dr. Brittanie Burns MCHC (RBC) [Mass/Vol] 34.9 g/dL Normal 29.9-35.2 [facility] Comment on above: Performed By: #### D RUGRPD #### [facility] [address] [place] [address] Dr. Brittanie Burns MCV (RBC) [Entitic vol] 87.9 fL Normal 80.0-94.0 [facility] Comment on above: Performed By: #### D RUGRPD #### [facility] [address] [place] [address] Dr. Brittanie Burns MONO # 1.5 103/ul Critically high 0.3-0.8 [facility] Comment on above: Performed By: #### D RUGRPD #### [facility] [address] [place] [address] Dr. Brittanie Burns Monocytes/100 WBC (Bld) 14.4 % Critically high 1.7-12.0 [facility] Comment on above: Performed By: #### D RUGRPD #### [facility] [address] [place] [address] Dr. Brittanie Burns NEUT # 6.3 103/ul Normal 1.4-6.5 The [facility] Comment on above: Performed By: #### D RUGRPD #### [facility] [address] [place] [address] Dr. Brittanie Burns Neutrophils/100 WBC (Bld) 61.9 % Normal 43.0-75.0 [facility] Comment on above: Performed By: #### D RUGRPD #### [facility] [address] [place] [address] Dr. Brittanie Burns Platelet mean volume (Bld) [Entitic vol] 10.0 fL Normal 9.5-13.5 [facility] Comment on above: Performed By: #### D RUGRPD #### [facility] [address] [place] [address] Dr. Brittanie Burns PLT 305 103/ul Normal 150-450 [facility] Comment on above: Performed By: #### D RUGRPD #### [facility] [address] [place] [address] Dr. Brittanie Burns RBC 4.46 106/ul Critically low 4.70-6.[address] [facility] Comment on above: Performed By: #### D RUGRPD #### [facility] [address] [place] [address] Dr. Brittanie Burns WBC 10.2 103/ul Normal 4.0-11.0 [facility] Comment on above: Performed By: #### D RUGRPD #### [facility] [address] [place] [address] Dr. Brittanie Burns PROF 14(COMP METB)on 023 Albumin [Mass/Vol] 3.4 g/dL Normal 3.4-5.0 [facility] Comment on above: Performed By: #### L YMA #### [facility] [address] [place] [address] Dr. Brittanie Burns Albumin/Globulin [Mass ratio] 0.8 {ratio} Normal [facility] Comment on above: Performed By: #### L YMA #### [facility] [address] [place] [address] Dr. Brittanie Burns ALP [Catalytic activity/Vol] 83 U/L Normal 46-116 [facility] Comment on above: Performed By: #### L YMA #### [facility] [address] [place] [address] Dr. Brittanie Burns ALT [Catalytic activity/Vol] 14 U/L Critically low 16-63 [facility] Comment on above: Performed By: #### L YMA #### [facility] [address] [place] [address] Dr. Brittanie Burns Anion gap [Moles/Vol] 16.0 mmol/L Normal Th e [facility] Comment on above: Performed By: #### L YMA #### [facility] [address] [place] [address] [address] Brittanie Burns AST [Catalytic activity/Vol] 14 U/L Critically low 15-37 [facility] Comment on above: Performed By: #### L YMA #### [facility] [address] [place] [address] Dr. Brittanie Burns Bilirubin [Mass/Vol] 0.5 mg/dL Normal 0.2-1.0 [facility] Comment on above: Performed By: #### L YMA #### [facility] [address] [place] [address] Dr. Brittanie Burns Calcium [Mass/Vol] 9.0 mg/dL Normal 8.5-10.1 [facility] Comment on above: Performed By: #### L YMA #### [facility] [address] [place] [address] Dr. Brittanie Burns Chloride [Moles/Vol] 103 mmol/L Normal 98-107 [facility] Comment on above: Performed By: #### L YMA #### [facility] [address] [place] [address] Dr. Brittanie Burns CO2 [Moles/Vol] 24.5 mmol/L Normal 21.0-32.0 [facility] Comment on above: Performed By: #### L YMA #### [facility] [address] [place] [address] Dr. Brittanie Burns Creatinine [Mass/Vol] 2.67 mg/dL Critically high 0.70-1.30 [facility] Comment on above: Performed By: #### L YMA #### [facility] [address] [place] [address] Dr. Brittanie Burns EGFR-AF BERMUDIAN 29 mL/min/1.73m2 Critically low >=60 [facility] Comment on above: Performed By: #### L YMA #### [facility] [address] [place] [address] [address] Brittanie Burns EGFR-NON AF BERMUDIAN 24 mL/min/1.73m2 Critically low >=60 [facility] Comment on above: Performed By: #### L YMA #### [facility] [address] [place] [address] [address] Brittanie Burns Globulin (S) [Mass/Vol] 4.2 g/dL Normal [facility] Comment on above: Performed By: #### L YMA #### [facility] [address] [address] [address] Brittanie Burns Glucose [Mass/Vol] 131 mg/dL Critically high 74-106 [facility] Comment on above: Performed By: #### L YMA #### [facility] [address] [address] [address] Brittanie Burns Potassium [Moles/Vol] 3.5 mmol/L Normal 3.5-5.1 [facility] Comment on above: Performed By: #### L YMA #### [facility] [address] [place] [address] Dr. Brittanie Burns Protein [Mass/Vol] 7.6 g/dL Normal 6.4-8.2 [facility] Comment on above: Performed By: #### L YMA #### [facility] [address] [place] [address] [address] Brittanie Burns Sodium [Moles/Vol] 140 mmol/L Normal 136-145 [facility] Comment on above: Performed By: #### L YMA #### [facility] [address] [address] [address] Brittanie Burns Urea nitrogen [Mass/Vol] 33.0 mg/dL Critically high 7.0-18.0 [facility] Comment on above: Performed By: #### L YMA #### [facility] [address] [place] [address] [address] Brittanie Burns Urea nitrogen/Creatinine [Mass ratio] 12.4 mg/mg Normal [facility] Comment on above: Performed By: #### L YMA #### [facility] [address] [place] [address] Dr. Brittanie Burns VITAMIN B1 (THIAMINE)on 09-23 Vit. B1, Whole Blood 133.7 nmol/L Normal 66.5-200.0 Th e [facility] Comment on above: Performed By: #### V ITB1T #### [facility] [address] [place] [address] Dr. Brittanie Burns CBC W MANUAL DIFFon 10-20-19 23 ATYPICAL LYMPH # Normal [facility] Comment on above: Performed By: #### C BC #### [facility] [address] [place] [address] Dr. Brittanie Burns ATYPICAL LYMPH % Normal [facility] Comment on above: Performed By: #### C BC #### [facility] [address] [place] [address] Dr. Brittanie Burns BAND # Normal 0.0-0.3 [facility] Comment on above: Performed By: #### C BC #### [facility] [address] [place] [address] Dr. Brittanie HUGGINS % Normal 0-5 [facility] Comment on above: Performed By: #### C BC #### [facility] [address] [place] [address] Dr. Brittanie Burns BASOM # 0.34 103/ul Critically high 0.00-0.10 [facility] Comment on above: Performed By: #### C BC #### [facility] [address] [place] [address] Dr. Brittanie Burns BASOM % 3.0 % Critically high 0.2-2.[address] [facility] Comment on above: Performed By: #### C BC #### [facility] [address] [place] [address] Dr. Brittanie Burns BLAST # Normal [facility] Comment on above: Performed By: #### C BC #### [facility] [address] [place] [address] Dr. Brittanie Burns BLAST % Normal [facility] Comment on above: Performed By: #### C BC #### [facility] [address] [place] [address] Dr. Brittanie Burns CORRECTED WBC Normal 4.0-11.0 [facility] Comment on above: Performed By: #### C BC #### [facility] [address] [address] [address] Brittanie Burns EOS # 0.22 103/ul Normal 0.00-0.70 [facility] Comment on above: Performed By: #### C BC #### [facility] [address] [place] [address] Dr. Brittanie Burns EOS% 2.0 % Normal 0.9-7.0 [facility] Comment on above: Performed By: #### C BC #### [facility] [address] [place] [address] Dr. Brittanie Burns HCT 35.2 % Critically low 42.0-54.0 [facility] Comment on above: Performed By: #### C BC #### [facility] [address] [place] [address] Dr. Brittanie Burns HGB 12.2 g/dl Critically low 14.0-18.0 [facility] Comment on above: Performed By: #### C BC #### [facility] [address] [place] [address] Dr. Brittanie Burns LYMPHM # 1.90 103/ul Normal 1.20-3.80 [facility] Comment on above: Performed By: #### C BC #### [facility] [address] [place] [address] Dr. Brittanie Burns LYMPHM% 17.0 % Critically low 20.5-60.0 [facility] Comment on above: Performed By: #### C BC #### [facility] [address] [place] [address] Dr. Brittanie Burns MCH 30.7 pg Normal 25.9-34.0 [facility] Comment on above: Performed By: #### C BC #### [facility] [address] [place] [address] Dr. Brittanie Burns MCHC 34.7 g/dl Normal 29.9-35.2 [facility] Comment on above: Performed By: #### C BC #### [facility] [address] [place] [address] Dr. Brittanie Burns MCV 88.4 fL Normal 80.0-94.0 [facility] Comment on above: Performed By: #### C BC #### [facility] [address] [place] [address] Dr. Brittanie Burns METAMYELOCYTE # Normal [facility] Comment on above: Performed By: #### C BC #### [facility] [address] [place] [address] Dr. Brittanie Burns METAMYELOCYTE % Normal [facility] Comment on above: Performed By: #### C BC #### [facility] [address] [place] [address] Dr. Brittanie Burns MONOM# 0.67 103/ul Normal 0.30-0.80 [facility] Comment on above: Performed By: #### C BC #### [facility] [address] [place] [address] Dr. Brittanie Burns MONOM% 6.0 % Normal 1.7-12.0 [facility] Comment on above: Performed By: #### C BC #### [facility] [address] [place] [address] Dr. Brittanie Burns MPV 9.9 fL Normal 9.5-13.5 [facility] Comment on above: Performed By: #### C BC #### [facility] [address] [place] [address] Dr. Brittanie Burns MYELOCYTE # Normal [facility] Comment on above: Performed By: #### C BC #### [facility] [address] [place] [address] Dr. Brittanie Burns MYELOCYTE % Normal [facility] Comment on above: Performed By: #### C BC #### [facility] [address] [place] [address] Dr. Brittanie Burns NRBC Normal [facility] Comment on above: Performed By: #### C BC #### [facility] [address] [address] [address] Brittanie Burns PLT 267 103/ul Normal 150-450 [facility] Comment on above: Performed By: #### C BC #### [facility] [address] [place] [address] Dr. Brittanie Burns RBC 3.98 106/ul Critically low 4.70-6.10 [facility] Comment on above: Performed By: #### C BC #### [facility] [address] [place] [address] Dr. Brittanie Burns RDW 13.4 % Normal 11.0-15.0 [facility] Comment on above: Performed By: #### C BC #### [facility] [address] [place] [address] Dr. Brittanie Burns SEG # 8.06 103/ul Critically high 1.40-6.50 [facility] Comment on above: Performed By: #### C BC #### [facility] [address] [place] [address] Dr. Brittanie Burns SEG % 72.0 % Normal 43.0-75.0 [facility] Comment on above: Performed By: #### C BC #### [facility] [address] [place] [address] Dr. Brittanie Burns WBC 11.2 103/ul Critically high 4.0-11.0 [facility] Comment on above: Performed By: #### C BC #### [facility] [address] [place] [address] Dr. Brittanie Burns CULTURE BLOODon 10-19-2022 Microscopic examination of blood, culture Culture Observations: NO GROWTH AT 5 DAYS. Normal [facility] Comment on above: Performed By: #### B [id number] #### [facility] [address] [place] [address] Dr. Brittanie Burns ECHOCARDIO M/2D COMPLETEon 0 10-19-2022 ECHOCARDIO M/2D COMPLETE Patient: SHELBY VALERIO Matt Exam Date: 10/19/2022 : 1950 Gender:M Ordering : SHAIKH Manav SALINAS . Admission #: [id number] Family : Order #: [id number] CLICK HERE TO VIEW EXAM ECHOCARDIOGRAM REPORT [...] Left Atrium LA Volume Index (2D A2C): 00842 mm3 Left Atrium Systolic Dimension: 2.20 cm [...] Pedroza M.D. on 10/19/2022 at 14:32 Normal [facility] PROF 14(COMP METB)on 023 Albumin [Mass/Vol] 2.8 g/dL Critically low 3.4-5.0 [facility] Comment on above: Performed By: #### L YMA #### [facility] [address] [place] [address] Dr. Brittanie Burns Albumin/Globulin [Mass ratio] 0.8 {ratio} Normal [facility] Comment on above: Performed By: #### L YMA #### [facility] [address] [place] [address] Dr. Brittanie Burns ALP [Catalytic activity/Vol] 72 U/L Normal 46-116 [facility] Comment on above: Performed By: #### L YMA #### [facility] [address] [place] [address] Dr. Brittanie Burns ALT [Catalytic activity/Vol] 12 U/L Critically low 16-63 [facility] Comment on above: Performed By: #### L YMA #### [facility] [address] [place] [address] Dr. Brittanie Burns Anion gap [Moles/Vol] 15.7 mmol/L Normal [facility] Comment on above: Performed By: #### L YMA #### [facility] [address] [place] [address] Dr. Brittanie Burns AST [Catalytic activity/Vol] 12 U/L Critically low 15-37 [facility] Comment on above: Performed By: #### L YMA #### [facility] [address] [place] [address] Dr. Brittanie Burns Bilirubin [Mass/Vol] 0.5 mg/dL Normal 0.2-1.0 [facility] Comment on above: Performed By: #### L YMA #### [facility] [address] [address] [address] Brittanie Burns Calcium [Mass/Vol] 8.7 mg/dL Normal 8.5-10.1 [facility] Comment on above: Performed By: #### L YMA #### [facility] [address] [address] [address] Brittanie Burns Chloride [Moles/Vol] 107 mmol/L Normal 98-107 [facility] Comment on above: Performed By: #### L YMA #### [facility] [address] [address] [address] Brittanie Burns CO2 [Moles/Vol] 23.0 mmol/L Normal 21.0-32.0 [facility] Comment on above: Performed By: #### L YMA #### [facility] [address] [address] [address] Brittanie Burns Creatinine [Mass/Vol] 3.79 mg/dL Critically high 0.70-1.30 [facility] Comment on above: Performed By: #### L YMA #### [facility] [address] [place] [address] Dr. Brittanie Burns EGFR-AF BERMUDIAN 19 mL/min/1.73m2 Critically low >=60 [facility] Comment on above: Performed By: #### L YMA #### [facility] [address] [address] [address] Brittanie Burns EGFR-NON AF BERMUDIAN 16 mL/min/1.73m2 Critically low >=60 [facility] Comment on above: Performed By: #### L YMA #### [facility] [address] [address] [address] Brittanie Burns Globulin (S) [Mass/Vol] 3.5 g/dL Normal [facility] Comment on above: Performed By: #### L YMA #### [facility] [address] [address] [address] Brittanie Burns Glucose [Mass/Vol] 75 mg/dL Normal 74-106 [facility] Comment on above: Performed By: #### L YMA #### [facility] [address] [address] [address] Brittanie Burns Potassium [Moles/Vol] 3.7 mmol/L Normal 3.5-5.1 [facility] Comment on above: Performed By: #### L YMA #### [facility] [address] [address] [address] Brittanie Burns Protein [Mass/Vol] 6.3 g/dL Critically low 6.4-8.2 [facility] Comment on above: Performed By: #### L YMA #### [facility] [address] [place] [address] Dr. Brittanie Burns Sodium [Moles/Vol] 142 mmol/L Normal 136-145 [facility] Comment on above: Performed By: #### L YMA #### [facility] [address] [place] [address] Dr. Brittanie Burns Urea nitrogen [Mass/Vol] 40.0 mg/dL Critically high 7.0-18.0 [facility] Comment on above: Performed By: #### L YMA #### [facility] [address] [place] [address] Dr. Brittanie Burns Urea nitrogen/Creatinine [Mass ratio] 10.6 mg/mg Normal [facility] Comment on above: Performed By: #### L YMA #### [facility] [address] [place] [address] Dr. Brittanie Burns VANCOMYCIN TROUGHon 10-20-19 VANCOMYCIN TROUGH 7.0 ug/ml Normal 5.0-20.0 [facility] Comment on above: Performed By: #### B 12FOL #### [facility] [address] [place] [address] Dr. Brittanie Burns CBC AUTO DIFFon 10-18-2022 BASO # 0.1 103/ul Normal 0.0-0.1 [facility] Comment on above: Performed By: #### C BC #### [facility] [address] [address] [address] Brittanie Burns Basophils/100 WBC (Bld) 0.6 % Normal 0.2-2.0 [facility] Comment on above: Performed By: #### C BC #### [facility] [address] [place] [address] Dr. Brittanie Burns EO # 0.1 103/ul Normal 0.0-0.7 [facility] Comment on above: Performed By: #### C BC #### [facility] [address] [place] [address] Dr. Brittanie Burns Eosinophils/100 WBC (Bld) 1.0 % Normal 0.9-7.0 [facility] Comment on above: Performed By: #### C BC #### [facility] [address] [place] [address] Dr. Brittanie Burns Erythrocyte distribution width (RBC) [Ratio] 13.7 % Normal 11.0-15.0 [facility] Comment on above: Performed By: #### C BC #### [facility] [address] [place] [address] Dr. Brittanie Burns Hematocrit (Bld) [Volume fraction] 33.5 % Critically low 42.0-54.0 [facility] Comment on above: Performed By: #### C BC #### [facility] [address] [place] [address] Dr. Brittanie Burns Hemoglobin (Bld) [Mass/Vol] 11.2 g/dL Critically low 14.0-18.0 [facility] Comment on above: Performed By: #### C BC #### [facility] [address] [place] [address] Dr. Brittanie Burns IG # 0.04 10e3/ul Critically high 0.00-0.03 [facility] Comment on above: Performed By: #### C BC #### [facility] [address] [place] [address] Dr. Brittanie Burns IG % 0.3 % Normal 0.0-0.5 [facility] Comment on above: Performed By: #### C BC #### [facility] [address] [address] [address] Brittanie Burns LYMPH # 1.8 103/ul Normal 1.2-3.8 [facility] Comment on above: Performed By: #### C BC #### [facility] [address] [address] [address] Brittanie Burns Lymphocytes/100 WBC (Bld) 15.4 % Critically low 20.5-60.0 [facility] Comment on above: Performed By: #### C BC #### [facility] [address] [place] [address] Dr. Brittanie Burns MANUAL DIFF REQ NO Normal The [facility] Comment on above: Performed By: #### C BC #### [facility] [address] [place] [address] Dr. Brittanie Burns MCH (RBC) [Entitic mass] 30.2 pg Normal 25.9-34.0 [facility] Comment on above: Performed By: #### C BC #### [facility] [address] [place] [address] Dr. Brittanie Burns MCHC (RBC) [Mass/Vol] 33.4 g/dL Normal 29.9-35.2 [facility] Comment on above: Performed By: #### C BC #### [facility] [address] [place] [address] Dr. Brittanie Burns MCV (RBC) [Entitic vol] 90.3 fL Normal 80.0-94.0 [facility] Comment on above: Performed By: #### C BC #### [facility] [address] [place] [address] Dr. Brittanie Burns MONO # 1.3 103/ul Critically high 0.3-0.[address] [facility] Comment on above: Performed By: #### C BC #### [facility] [address] [place] [address] Dr. Brittanie Burns Monocytes/100 WBC (Bld) 10.7 % Normal 1.7-12.0 [facility] Comment on above: Performed By: #### C BC #### [facility] [address] [address] [address] Brittanie Burns NEUT # 8.5 103/ul Critically high 1.4-6.[address] [facility] Comment on above: Performed By: #### C BC #### [facility] [address] [id number] [address] Brittanie Burns Neutrophils/100 WBC (Bld) 72.0 % Normal 43.0-75.0 [facility] Comment on above: Performed By: #### C BC #### [facility] [address] [address] [address] Brittanie Burns Platelet mean volume (Bld) [Entitic vol] 9.4 fL Critically low 9.5-13.5 [facility] Comment on above: Performed By: #### C BC #### [facility] [address] [address] [address] Brittanie Burns PLT 241 103/ul Normal 150-450 [facility] Comment on above: Performed By: #### C BC #### [facility] [address] [place] [address] Dr. Brittanie Burns RBC 3.71 106/ul Critically low 4.70-6.[address] [facility] Comment on above: Performed By: #### C BC #### [facility] [address] [id number] [address] Brittanie Burns WBC 11.8 103/ul Critically high 4.0-11.0 [facility] Comment on above: Performed By: #### C BC #### [facility] [address] [id number] [address] Brittanie Burns LYME DISEASE AB EIA W REFLEX on 10-18-2022 Lyme Total Antibody,EIA Negative Normal Negative [facility] Comment on above: Result Comment: Lyme [...] recommended. Performed By: #### L YMA #### [facility] [address] [address] [address] Brittanie Burns PROF 14(COMP METB)on 023 Albumin [Mass/Vol] 3.1 g/dL Critically low 3.4-5.0 [facility] Comment on above: Performed By: #### L YMA #### [facility] [address] [place] [address] Dr. Brittanie Burns Albumin/Globulin [Mass ratio] 1.2 {ratio} Normal [facility] Comment on above: Performed By: #### L YMA #### [facility] [address] [place] [address] Dr. Brittanie Burns ALP [Catalytic activity/Vol] 74 U/L Normal 46-116 [facility] Comment on above: Performed By: #### L YMA #### [facility] [address] [place] [address] Dr. Brittanie Burns ALT [Catalytic activity/Vol] 13 U/L Critically low 16-63 [facility] Comment on above: Performed By: #### L YMA #### [facility] [address] [place] [address] Dr. Brittanie Burns Anion gap [Moles/Vol] 17.6 mmol/L Normal [facility] Comment on above: Performed By: #### L YMA #### [facility] [address] [place] [address] Dr. Brittanie Burns AST [Catalytic activity/Vol] 15 U/L Normal 15-37 [facility] Comment on above: Performed By: #### L YMA #### [facility] [address] [place] [address] Dr. Brittanie Burns Bilirubin [Mass/Vol] 0.5 mg/dL Normal 0.2-1.0 [facility] Comment on above: Performed By: #### L YMA #### [facility] [address] [place] [address] Dr. Brittanie Burns Calcium [Mass/Vol] 8.6 mg/dL Normal 8.5-10.1 [facility] Comment on above: Performed By: #### L YMA #### [facility] [address] [address] [address] Brittanie Burns Chloride [Moles/Vol] 107 mmol/L Normal 98-107 [facility] Comment on above: Performed By: #### L YMA #### [facility] [address] [address] [address] Brittanie Burns CO2 [Moles/Vol] 21.1 mmol/L Normal 21.0-32.0 [facility] Comment on above: Performed By: #### L YMA #### [facility] [address] [address] [address] Brittanie Burns Creatinine [Mass/Vol] 5.64 mg/dL Critically high 0.70-1.30 [facility] Comment on above: Performed By: #### L YMA #### [facility] [address] [address] [address] Brittanie Burns EGFR-AF BERMUDIAN 12 mL/min/1.73m2 Critically low >=60 [facility] Comment on above: Performed By: #### L YMA #### [facility] [address] [address] [address] Brittanie Burns EGFR-NON AF BERMUDIAN 10 mL/min/1.73m2 Critically low >=60 [facility] Comment on above: Performed By: #### L YMA #### [facility] [address] [address] [address] Brittanie Burns Globulin (S) [Mass/Vol] 2.6 g/dL Normal [facility] Comment on above: Performed By: #### L YMA #### [facility] [address] [address] [address] Brittanie Burns Glucose [Mass/Vol] 75 mg/dL Normal 74-106 [facility] Comment on above: Performed By: #### L YMA #### [facility] [address] [address] [address] Brittanie Burns Potassium [Moles/Vol] 4.7 mmol/L Normal 3.5-5.1 [facility] Comment on above: Performed By: #### L YMA #### [facility] [address] [place] [address] Dr. Brittanie Burns Protein [Mass/Vol] 5.7 g/dL Critically low 6.4-8.2 [facility] Comment on above: Performed By: #### L YMA #### [facility] [address] [place] [address] Dr. Brittanie Burns Sodium [Moles/Vol] 141 mmol/L Normal 136-145 [facility] Comment on above: Performed By: #### L YMA #### [facility] [address] [place] [address] Dr. Brittanie Burns Urea nitrogen [Mass/Vol] 44.0 mg/dL Critically high 7.0-18.0 [facility] Comment on above: Performed By: #### L YMA #### [facility] [address] [place] [address] Dr. Brittanie Burns Urea nitrogen/Creatinine [Mass ratio] 7.8 mg/mg Normal [facility] Comment on above: Performed By: #### L YMA #### [facility] [address] [place] [address] Dr. Brittanie Burns RPR QUAL REFLEX TO QUANTon 0 10-18-2022 Rapid Plasma Reagin, Qual Non-Reactive Normal Non Reactive [facility] Comment on above: Performed By: #### V [id number] #### [facility] [address] [place] [address] Dr. Brittanie Burns CBC AUTO DIFFon 10-17-2022 BASO # 0.0 103/ul Normal 0.0-0.1 [facility] Comment on above: Performed By: #### C BC #### [facility] [address] [place] [address] Dr. Brittanie Burns Basophils/100 WBC (Bld) 0.3 % Normal 0.2-2.0 [facility] Comment on above: Performed By: #### C BC #### [facility] [address] [place] [address] Dr. Brittanie Burns EO # 0.0 103/ul Normal 0.0-0.7 [facility] Comment on above: Performed By: #### C BC #### [facility] [address] [place] [address] Dr. Brittanie Burns Eosinophils/100 WBC (Bld) 0.1 % Critically low 0.9-7.0 [facility] Comment on above: Performed By: #### C BC #### [facility] [address] [place] [address] Dr. Brittanie Burns Erythrocyte distribution width (RBC) [Ratio] 13.7 % Normal 11.0-15.0 [facility] Comment on above: Performed By: #### C BC #### [facility] [address] [place] [address] Dr. Brittanie Burns Hematocrit (Bld) [Volume fraction] 34.2 % Critically low 42.0-54.0 [facility] Comment on above: Performed By: #### C BC #### [facility] [address] [place] [address] Dr. Brittanie Burns Hemoglobin (Bld) [Mass/Vol] 11.6 g/dL Critically low 14.0-18.0 [facility] Comment on above: Performed By: #### C BC #### [facility] [address] [place] [address] Dr. Brittanie Burns IG # 0.06 10e3/ul Critically high 0.00-0.03 [facility] Comment on above: Performed By: #### C BC #### [facility] [address] [place] [address] Dr. Brittanie Burns IG % 0.4 % Normal 0.0-0.5 [facility] Comment on above: Performed By: #### C BC #### [facility] [address] [place] [address] Dr. Brittanie Burns LYMPH # 1.4 103/ul Normal 1.2-3.8 [facility] Comment on above: Performed By: #### C BC #### [facility] [address] [place] [address] Dr. Brittanie Burns Lymphocytes/100 WBC (Bld) 10.4 % Critically low 20.5-60.0 [facility] Comment on above: Performed By: #### C BC #### [facility] [address] [place] [address] Dr. Brittanie Burns MANUAL DIFF REQ NO Normal [facility] Comment on above: Performed By: #### C BC #### [facility] [address] [place] [address] Dr. Brittanie Burns MCH (RBC) [Entitic mass] 30.9 pg Normal 25.9-34.0 [facility] Comment on above: Performed By: #### C BC #### [facility] [address] [place] [address] Dr. Brittanie Burns MCHC (RBC) [Mass/Vol] 33.9 g/dL Normal 29.9-35.2 [facility] Comment on above: Performed By: #### C BC #### [facility] [address] [place] [address] Dr. Brittanie Burns MCV (RBC) [Entitic vol] 91.0 fL Normal 80.0-94.0 [facility] Comment on above: Performed By: #### C BC #### [facility] [address] [place] [address] Dr. Brittanie Burns MONO # 1.4 103/ul Critically high 0.3-0.[address] [facility] Comment on above: Performed By: #### C BC #### [facility] [address] [place] [address] Dr. Brittanie Burns Monocytes/100 WBC (Bld) 10.3 % Normal 1.7-12.0 [facility] Comment on above: Performed By: #### C BC #### [facility] [address] [place] [address] Dr. Brittanie Burns NEUT # 10.5 103/ul Critically high 1.4-6.5 [facility] Comment on above: Performed By: #### C BC #### [facility] [address] [place] [address] Dr. Brittanie Burns Neutrophils/100 WBC (Bld) 78.5 % Critically high 43.0-75.0 [facility] Comment on above: Performed By: #### C BC #### [facility] [address] [place], [place] [address] Dr. Brittanie Burns Platelet mean volume (Bld) [Entitic vol] 9.2 fL Critically low 9.5-13.5 [facility] Comment on above: Performed By: #### C BC #### [facility] [address] [place], [place] [address] Dr. Brittanie Burns PLT 251 103/ul Normal 150-450 [facility] Comment on above: Performed By: #### C BC #### [facility] [address] [address] [address] Brittanie Burns RBC 3.76 106/ul Critically low 4.70-6.10 [facility] Comment on above: Performed By: #### C BC #### [facility] [address] [address] [address] Brittanie Burns WBC 13.4 103/ul Critically high 4.0-11.0 [facility] Comment on above: Performed By: #### C BC #### [facility] [address] [place] [address] Dr. Brittanie Burns LIPID PROFILEon 10-17-2022 CHOL-HDL RATIO NORM SEE BELOW Normal [facility] Comment on above: Result Comment: 3.3 - 4.4 LOW RISK 4.4 - 7.1 AVERAGE RISK 7.1 - 11.0 MODERATE RISK >11.0 HIGH RISK Performed By: #### D RUGRPD #### [facility] [address] [place] [address] Dr. Brittanie Burns Cholesterol [Mass/Vol] 162 mg/dL Normal <=200 [facility] Comment on above: Performed By: #### D RUGRPD #### [facility] [address] [id number] [address] Brittanie Burns Cholesterol in HDL [Mass/Vol] 32 mg/dL Critically low 40-60 [facility] Comment on above: Performed By: #### D RUGRPD #### [facility] [address] [id number] [address] Brittanie Burns Cholesterol in LDL [Mass/Vol] 98.6 mg/dL Normal [facility] Comment on above: Performed By: #### D RUGRPD #### [facility] [address] [address] [address] Brittanie Burns Cholesterol.total/Chol esterol in HDL [Mass ratio] 5.1 {ratio} Normal [facility] Comment on above: Performed By: #### D RUGRPD #### [facility] [address] [address] [address] Brittanie Burns HDL NORMAL > or = 60 mg/dl - LOW CARDIOVASCULAR RISK <40 mg/dl - HIGH CARDIOVASCULAR RISK Normal [facility] Comment on above: Performed By: #### D RUGRPD #### [facility] [address] [address] [address] Brittanie Burns LDL CALC NORMAL SEE BELOW Normal [facility] Comment on above: Result Comment: <100 mg/dl OPTIMAL 100 - 129 mg/dl NEAR OR ABOVE OPTIMAL 130 - 159 mg/dl BORDERLINE HIGH 160 - 189 mg/dl HIGH >190 mg/dl VERY HIGH Performed By: #### D RUGRPD #### [facility] [address] [address] [address] Brittanie Burns Triglyceride [Mass/Vol] 157 mg/dL Critically high <=150 [facility] Comment on above: Performed By: #### D RUGRPD #### [facility] [address] [address] [address] Brittanie Burns VLDL CALC 31.4 mg/dL Normal [facility] Comment on above: Performed By: #### D RUGRPD #### [facility] [address] [address] [address] Brittanie Burns MRI BRAIN WO CONon [...] by: DIONNE JEROME Date: 2022-10-17 21:49 Normal [facility] PROF 14(COMP METB)on 10-17- 023 Albumin [Mass/Vol] 3.1 g/dL Critically low 3.4-5.0 [facility] Comment on above: Performed By: #### B 12FOL #### [facility] [address] [address] [address] Brittanie Burns Albumin/Globulin [Mass ratio] 0.9 {ratio} Normal [facility] Comment on above: Performed By: #### B 12FOL #### [facility] [address] [place] [address] Dr. Brittanie Burns ALP [Catalytic activity/Vol] 63 U/L Normal 46-116 [facility] Comment on above: Performed By: #### B 12FOL #### [facility] [address] [place] [address] Dr. Brittanie Burns ALT [Catalytic activity/Vol] 15 U/L Critically low 16-63 [facility] Comment on above: Performed By: #### B 12FOL #### [facility] [address] [place] [address] Dr. Brittanie Burns Anion gap [Moles/Vol] 17.5 mmol/L Normal [facility] Comment on above: Performed By: #### B 12FOL #### [facility] [address] [place] [address] Dr. Brittanie Burns AST [Catalytic activity/Vol] 15 U/L Normal 15-37 [facility] Comment on above: Performed By: #### B 12FOL #### [facility] [address] [place] [address] Dr. Brittanie Burns Bilirubin [Mass/Vol] 0.4 mg/dL Normal 0.2-1.0 [facility] Comment on above: Performed By: #### B 12FOL #### [facility] [address] [address] [address] Brittanie Burns Calcium [Mass/Vol] 9.0 mg/dL Normal 8.5-10.1 [facility] Comment on above: Performed By: #### B 12FOL #### [facility] [address] [place] [address] Dr. Brittanie Burns Chloride [Moles/Vol] 114 mmol/L Critically high 98-107 [facility] Comment on above: Performed By: #### B 12FOL #### [facility] [address] [place] [address] Dr. Brittanie Burns CO2 [Moles/Vol] 22.8 mmol/L Normal 21.0-32.0 [facility] Comment on above: Performed By: #### B 12FOL #### [facility] [address] [place] [address] Dr. Brittanie Burns Creatinine [Mass/Vol] 6.98 mg/dL Critically high 0.70-1.30 [facility] Comment on above: Performed By: #### B 12FOL #### [facility] [address] [place] [address] Dr. Brittanie Burns EGFR-AF BERMUDIAN 9 mL/min/1.73m2 Critically low >=60 [facility] Comment on above: Performed By: #### B 12FOL #### [facility] [address] [place] [address] Dr. Brittanie Burns EGFR-NON AF BERMUDIAN 8 mL/min/1.73m2 Critically low >=60 [facility] Comment on above: Performed By: #### B 12FOL #### [facility] [address] [place] [address] Dr. Brittanie Burns Globulin (S) [Mass/Vol] 3.3 g/dL Normal [facility] Comment on above: Performed By: #### B 12FOL #### [facility] [address] [place] [address] Dr. Brittanie Burns Glucose [Mass/Vol] 104 mg/dL Normal 74-106 [facility] Comment on above: Performed By: #### B 12FOL #### [facility] [address] [place] [address] Dr. Brittanei Burns Potassium [Moles/Vol] 5.3 mmol/L Critically high 3.5-5.1 [facility] Comment on above: Performed By: #### B 12FOL #### [facility] [address] [place] [address] Dr. Brittanie Burns Protein [Mass/Vol] 6.4 g/dL Normal 6.4-8.2 [facility] Comment on above: Performed By: #### B 12FOL #### [facility] [address] [place] [address] Dr. Brittanie uBrns Sodium [Moles/Vol] 149 mmol/L Critically high 136-145 [facility] Comment on above: Performed By: #### B 12FOL #### [facility] [address] [place] [address] Dr. Brittanie Burns Urea nitrogen [Mass/Vol] 45.0 mg/dL Critically high 7.0-18.0 [facility] Comment on above: Performed By: #### B 12FOL #### [facility] [address] [place] [address] Dr. Brittanie Burns Urea nitrogen/Creatinine [Mass ratio] 6.4 mg/mg Normal [facility] Comment on above: Performed By: #### B 12FOL #### [facility] [address] [place] [address] Dr. Brittanie Burns TSHon 10-17-2022 TSH 1.347 uIU/mL Normal 0.358-3.740 [facility] Comment on above: Performed By: #### D RUGRPD #### [facility] [address] [place] [address] Dr. Brittanie Burns VIT B12 AND FOLATEon 023 Cobalamin (Vitamin B12) [Mass/Vol] 296.0 pg/mL Normal 193.0-986.0 [facility] Comment on above: Performed By: #### B 12FOL #### [facility] [address] [place] [address] Dr. Brittanie Burns FOLATE 12.20 ng/mL Normal 8.60-58.90 [facility] Comment on above: Performed By: #### B 12FOL #### [facility] [address] [place] [address] Dr. Brittanie Burns ACETAMINOPHENon 10-16-2022 Acetaminophen [Mass/Vol] ug/mL Critically low 10.0-30.0 [facility] Comment on above: Performed By: #### L YMA #### [facility] [address] [place] [address] Dr. Brittanie Burns ACETONE SERUMon 10-16-2022 ACETONE Negative Normal NEGATIVE [facility] Comment on above: Performed By: #### D RUGRPD #### [facility] [address] [place] [address] Dr. Brittanie Burns AMMONIAon 10-16-2022 Ammonia (P) [Mass/Vol] ug/dL Critically low 11-32 [facility] Comment on above: Performed By: #### L YMA #### [facility] [address] [place] [address] Dr. Brittanie Burns BLOOD CULTURE ID PANELon A. baumannii Not detected Normal NOT DETECTED [facility] Comment on above: Performed By: #### L YMA #### [facility] [address] [place] [address] Dr. Brittanie Burns Bacteriodes fragilis Not detected Normal NOT DETECTED [facility] Comment on above: Performed By: #### L YMA #### [facility] [address] [place] [address] Dr. Brittanie Burns BCID CONTROLS PASSED Normal [facility] Comment on above: Performed By: #### L YMA #### [facility] [address] [place] [address] Dr. Brittanie BRANHAMDBTHD BLOOD CULTURE BOTTLE INFORMATION Normal [facility] Comment on above: Performed By: #### L YMA #### [facility] [address] [place] [address] Dr. Brittanie Burns BCIDHD1 ANTIMICROBIAL RESISTANCE GENES Normal [facility] Comment on above: Performed By: #### L YMA #### [facility] [address] [place] [address] Dr. Brittanie Burns BCIDHD2 SEE BELOW Normal [facility] Comment on above: Result Comment: Note : Antimicrobial resitance can occur via multiple mechanisms. A Not Detected result for the [employer] antomicrobial resistance gene assays does not indicate antimicrobial susceptibility. Subculturing is required for species identification and susceptibility testing of isolates. Performed By: #### L YMA #### [facility] [address] [place] [address] Dr. Brittanie Burns BCIDHD3 Positive Normal [facility] Comment on above: Performed By: #### L YMA #### [facility] [address] [place] [address] Dr. Brittanie Burns BCIDHD4 Negative Normal [facility] Comment on above: Performed By: #### L YMA #### [facility] [address] [place] [address] Dr. Brittanie Burns BCIDHD5 YEAST Normal [facility] Comment on above: Performed By: #### L YMA #### [facility] [address] [place] [address] Dr. Brittanie Burns Bottle Set: Set 2 Normal [facility] Comment on above: Performed By: #### L YMA #### [facility] [address] [place] [address] Dr. Brittanie Burns Bottle: Anaerobic Normal [facility] Comment on above: Performed By: #### L YMA #### [facility] [address] [place] [address] Dr. Brittanie Burns C. neoformans/gattii Not detected Normal NOT DETECTED [facility] Comment on above: Performed By: #### L YMA #### [facility] [address] [place] [address] Dr. Brittanie Burns Mari albicans Not detected Normal NOT DETECTED [facility] Comment on above: Performed By: #### L YMA #### [facility] [address] [place] [address] Dr. Brittanie Burns Mari auris Not detected Normal NOT DETECTED [facility] Comment on above: Performed By: #### L YMA #### [facility] [address] [address] [address] Brittanie Burns Mari glabrata Not detected Normal NOT DETECTED [facility] Comment on above: Performed By: #### L YMA #### [facility] [address] [address] [address] Brittanie Burns Mari Krusei Not detected Normal NOT DETECTED [facility] Comment on above: Performed By: #### L YMA #### [facility] [address] [address] [address] rBittanie Burns Mari Parapsilosis Not detected Normal NOT DETECTED [facility] Comment on above: Performed By: #### L YMA #### [facility] [address] [address] [address] Brittanie Burns Mari Tropicalis Not detected Normal NOT DETECTED [facility] Comment on above: Performed By: #### L YMA #### [facility] [address] [place] [address] Dr. Brittanie Burns CTX-M Resistant Gene Not Applicable Normal NOT DETECTE D [facility] Comment on above: Performed By: #### L YMA #### [facility] [address] [place] [address] Dr. Brittanie Burns E. Cloacae complex Not detected Normal NOT DETECTED [facility] Comment on above: Performed By: #### L YMA #### [facility] [address] [address] [address] Brittanie Burns E. faecalis Not detected Normal NOT DETECTED The [facility] Comment on above: Performed By: #### L YMA #### [facility] [address] [place] [address] Dr. Brittanie Burns E. faecium Not detected Normal NOT DETECTED [facility] Comment on above: Performed By: #### L YMA #### [facility] [address] [place] [address] Dr. Brittanie Burns Enterobacteriaceae Not detected Normal NOT DETECTED [facility] Comment on above: Performed By: #### L YMA #### [facility] [address] [address] [address] Brittanie Burns Escherichia coli Not detected Normal NOT DETECTED [facility] Comment on above: Performed By: #### L YMA #### [facility] [address] [place] [address] Dr. Brittanie Burns H. influenzae Not detected Normal NOT DETECTED [facility] Comment on above: Performed By: #### L YMA #### [facility] [address] [place] [address] Dr. Brittanie Burns IMP Resistant Gene Not Applicable Normal NOT DETECTED The [facility] Comment on above: Performed By: #### L YMA #### [facility] [address] [place] [address] Dr. Brittanie Burns K. oxytoca Not detected Normal NOT DETECTED [facility] Comment on above: Performed By: #### L YMA #### [facility] [address] [place] [address] Dr. Brittanie Burns K. pneumoniae Not detected Normal NOT DETECTED [facility] Comment on above: Performed By: #### L YMA #### [facility] [address] [place] [address] Dr. Brittanie Burns Klebsiella aerogenes Not detected Normal NOT DETECTED [facility] Comment on above: Performed By: #### L YMA #### [facility] [address] [place] [address] Dr. Brittanie Burns KPC Resistant Gene Not Applicable Normal NOT DETECTED [facility] Comment on above: Performed By: #### L YMA #### [facility] [address] [place] [address] Dr. Brittanie Burns List. monocytogenes Not detected Normal NOT DETECTED [facility] Comment on above: Performed By: #### L YMA #### [facility] [address] [place] [address] Dr. Brittanie Burns Mcr-1 Resistant Gene Not Applicable Normal NOT DETECTE D [facility] Comment on above: Performed By: #### L YMA #### [facility] [address] [place] [address] Dr. Brittanie Burns mecA/C Not Applicable Normal NOT DETECTED [facility] Comment on above: Performed By: #### L YMA #### [facility] [address] [place] [address] Dr. Brittanie Burns mecA/C MREJ Not Applicable Normal NOT DETECTED [facility] Comment on above: Performed By: #### L YMA #### [facility] [address] [place] [address] Dr. Brittanie Burns N. meningitidis Not detected Normal NOT DETECTED [facility] Comment on above: Performed By: #### L YMA #### [facility] [address] [place] [address] Dr. Brittanie Burns NDM Resistant Gene Not Applicable Normal NOT DETECTED [facility] Comment on above: Performed By: #### L YMA #### [facility] [address] [place] [address] Dr. Brittanie Burns Oxa-48-like Not Applicable Normal NOT DETECTED [facility] Comment on above: Performed By: #### L YMA #### [facility] [address] [place] [address] Dr. Brittanie Burns Proteus Not detected Normal NOT DETECTED [facility] Comment on above: Performed By: #### L YMA #### [facility] [address] [place] [address] Dr. Brittanie Burns Pseud. aeruginosa Not detected Normal NOT DETECTED [facility] Comment on above: Performed By: #### L YMA #### [facility] [address] [place] [address] Dr. Brittanie Burns S. maltophilia Not detected Normal NOT DETECTED [facility] Comment on above: Performed By: #### L YMA #### [facility] [address] [place] [address] Dr. Brittanie Burns Salmonella Not detected Normal NOT DETECTED [facility] Comment on above: Performed By: #### L YMA #### [facility] [address] [place] [address] Dr. Brittanie Burns Seratia marcescens Not detected Normal NOT DETECTED [facility] Comment on above: Performed By: #### L YMA #### [facility] [address] [address] [address] Brittanie Burns Site: Lt Forearm Normal [facility] Comment on above: Performed By: #### L YMA #### [facility] [address] [place] [address] Dr. Brittanie Burns Staph. aureus Not detected Normal NOT DETECTED [facility] Comment on above: Performed By: #### L YMA #### [facility] [address] [place] [address] Dr. Brittanie Burns Staph. epidermidis Not detected Normal NOT DETECTED [facility] Comment on above: Performed By: #### L YMA #### [facility] [address] [place] [address] Dr. Brittanie Burns Staph. lugdunensis Not detected Normal NOT DETECTED [facility] Comment on above: Performed By: #### L YMA #### [facility] [address] [place] [address] Dr. Brittanie Burns Staphylococcus Detected Critically abnormal NOT DETECTED [facility] Comment on above: Performed By: #### L YMA #### [facility] [address] [place] [address] Dr. Brittanie Burns Strep. agalactiae Not detected Normal NOT DETECTED [facility] Comment on above: Performed By: #### L YMA #### [facility] [address] [place] [address] Dr. Brittanie Burns Strep. pneumoniae Not detected Normal NOT DETECTED [facility] Comment on above: Performed By: #### L YMA #### [facility] [address] [place] [address] Dr. Brittanie Burns Strep. pyogenes Not detected Normal NOT DETECTED [facility] Comment on above: Performed By: #### L YMA #### [facility] [address] [place] [address] Dr. Brittanie Burns Streptococcus Not detected Normal NOT DETECTED [facility] Comment on above: Performed By: #### L YMA #### [facility] [address] [place] [address] Dr. Brittanie Burns Golden/B Resist. Gene Not Applicable Normal NOT DETECTED [facility] Comment on above: Performed By: #### L YMA #### [facility] [address] [place] [address] Dr. Brittanie Burns VIM Resistant Gene Not Applicable Normal NOT DETECTED [facility] Comment on above: Performed By: #### L YMA #### [facility] [address] [place] [address] Dr. Brittanie Burns BNPon 10-16-2022 Natriuretic peptide B (Bld) [Mass/Vol] 881.0 pg/mL Normal <=900.0 [facility] Comment on above: Performed By: #### B 12FOL #### [facility] [address] [place] [address] Dr. Brittanie Burns CARDIAC TING ADMITon 023 CK [Catalytic activity/Vol] 153 U/L Normal 39-308 [facility] Comment on above: Performed By: #### B 12FOL #### [facility] [address] [place] [address] Dr. Brittanie Burns CK.MB [Mass/Vol] 1.86 ng/mL Normal <=3.60 [facility] Comment on above: Performed By: #### B 12FOL #### [facility] [address] [place] [address] Dr. Brittanie Burns HSTROP 29.4 pg/mL Normal 4.0-76.1 [facility] Comment on above: Result Comment: CUT- OFF POINTS HAVE BEEN ESTABLISHED BASED ON THE FOURTH UNIVERSAL DEFINITIONS OF MYOCARDIAL INFARCTION. THE UPPER REFERENCE LIMIT (URL) OF TROPONIN, DEFINED THE 99TH PERCENTILE OF cTnI DISTRIBUTION IN A REFERENCE POPULATION, HAS BEEN CONFIRMED THE DECISION THRESHOLD FOR NM DIAGNOSIS. Performed By: #### B 12FOL #### [facility] [address] [place] [address] Dr. Brittanie Burns LYRIC 201 ng/mL Critically high 16-96 [facility] Comment on above: Performed By: #### B 12FOL #### [facility] [address] [place] [address] Dr. Brittanie Burns CBC AUTO DIFFon 10-16-2022 BASO # 0.1 103/ul Normal 0.0-0.1 [facility] Comment on above: Performed By: #### C BC #### [facility] [address] [place] [address] Dr. Brittanie Burns Basophils/100 WBC (Bld) 0.6 % Normal 0.2-2.0 [facility] Comment on above: Performed By: #### C BC #### [facility] [address] [place] [address] Dr. Brittanie Burns EO # 0.1 103/ul Normal 0.0-0.7 [facility] Comment on above: Performed By: #### C BC #### [facility] [address] [place] [address] Dr. Brittanie Burns Eosinophils/100 WBC (Bld) 0.8 % Critically low 0.9-7.0 [facility] Comment on above: Performed By: #### C BC #### [facility] [address] [place] [address] Dr. Brittanie Burns Erythrocyte distribution width (RBC) [Ratio] 13.7 % Normal 11.0-15.0 [facility] Comment on above: Performed By: #### C BC #### [facility] [address] [place] [address] Dr. Brittanie Burns Hematocrit (Bld) [Volume fraction] 41.4 % Critically low 42.0-54.0 [facility] Comment on above: Performed By: #### C BC #### [facility] [address] [place] [address] Dr. Brittanie Burns Hemoglobin (Bld) [Mass/Vol] 13.9 g/dL Critically low 14.0-18.0 [facility] Comment on above: Performed By: #### C BC #### [facility] [address] [place] [address] Dr. Brittanie Burns IG # 0.05 10e3/ul Critically high 0.00-0.03 [facility] Comment on above: Performed By: #### C BC #### [facility] [address] [place] [address] Dr. Brittanie Burns IG % 0.4 % Normal 0.0-0.5 [facility] Comment on above: Performed By: #### C BC #### [facility] [address] [place] [address] Dr. Brittanie Burns LYMPH # 1.4 103/ul Normal 1.2-3.8 [facility] Comment on above: Performed By: #### C BC #### [facility] [address] [place] [address] Dr. Brittanie Burns Lymphocytes/100 WBC (Bld) 11.0 % Critically low 20.5-60.0 [facility] Comment on above: Performed By: #### C BC #### [facility] [address] [place] [address] Dr. Brittanie Burns MANUAL DIFF REQ NO Normal [facility] Comment on above: Performed By: #### C BC #### [facility] [address] [place] [address] Dr. Brittanie Burns MCH (RBC) [Entitic mass] 30.5 pg Normal 25.9-34.0 [facility] Comment on above: Performed By: #### C BC #### [facility] [address] [place] [address] Dr. Brittanie Burns MCHC (RBC) [Mass/Vol] 33.6 g/dL Normal 29.9-35.2 [facility] Comment on above: Performed By: #### C BC #### [facility] [address] [place] [address] Dr. Brittanie Burns MCV (RBC) [Entitic vol] 91.0 fL Normal 80.0-94.0 [facility] Comment on above: Performed By: #### C BC #### [facility] [address] [place] [address] Dr. Brittanie Burns MONO # 1.2 103/ul Critically high 0.3-0.8 [facility] Comment on above: Performed By: #### C BC #### [facility] [address] [place] [address] Dr. Brittanie Burns Monocytes/100 WBC (Bld) 9.3 % Normal 1.7-12.0 [facility] Comment on above: Performed By: #### C BC #### [facility] [address] [address] [address] Brittanie Burns NEUT # 10.0 103/ul Critically high 1.4-6.5 [facility] [facility] Comment on above: Performed By: #### C BC #### [facility] [id number] Brittanie Burns Neutrophils/100 WBC (Bld) 77.9 % Critically high 43.0-75.0 [facility] Comment on above: Performed By: #### C BC #### [facility] [address] [address] [address] Brittanie Burns Platelet mean volume (Bld) [Entitic vol] 9.6 fL Normal 9.5-13.5 [facility] Comment on above: Performed By: #### C BC #### [facility] [address] [address] [address] Brittanie Burns PLT 269 103/ul Normal 150-450 [facility] Comment on above: Performed By: #### C BC #### [facility] [id number] Brittanie Burns RBC 4.55 106/ul Critically low 4.70-6.[address] [facility] Comment on above: Performed By: #### C BC #### [facility] [address] [id number] Brittanie Burns WBC 12.8 103/ul Critically high 4.0-11.0 The [facility] Comment on above: Performed By: #### C BC #### [facility] [address] [place] [address] ABD/PELVIS WO CONon [...] by: KYLE BOYLE Date: 2022-10-16 15:02 Normal [facility] CT STROKE HEAD WOon 10-17-19 CT [...] by: KYLE BOYLE Date: 2022-10-16 13:12 Normal [facility] CULTURE BLOODon 10-16-2022 Microscopic examination of blood, culture Culture Observations: NO GROWTH AT 5 DAYS. Normal [facility] Comment on above: Performed By: #### C BC #### [facility] [address] [place] [address] Dr. Brittanie Burns CULTURE URINEon 10-16-2022 CULTURE URINE Culture Observations: NO GROWTH. Normal [facility] Comment on above: Performed By: #### C BC #### [facility] [address] [address] [address] Brittanie [facility] SARS-CoV-2 (COVID-19) RNA HOPE+probe Ql (Unsp spec) Not detected Normal NOT DETECTED [facility] Comment on above: Result Comment: When diagnostic [...] for this test is supported by the [employer] of Health and Human Service's declaration that [...] used). Performed By: #### D RUGRPD #### [facility] [address] [address] [address] Brittanie Burns DRUG SCREEN RAPID (URINE)on 10-16-2022 AMP Negative Normal NEGATIVE [facility] Comment on above: Performed By: #### D RUGRPD #### [facility] [address] [place] [address] Dr. Brittanie Burns BAR Negative Normal NEGATIVE [facility] Comment on above: Performed By: #### D RUGRPD #### [facility] [address] [place] [address] Dr. Brittanie Burns BUP Negative Normal NEGATIVE [facility] Comment on above: Performed By: #### D RUGRPD #### [facility] [address] [place] [address] Dr. Brittanie Burns BZO Negative Normal NEGATIVE [facility] Comment on above: Performed By: #### D RUGRPD #### [facility] [address] [place] [address] Dr. Brittanie Burns MARCELA Negative Normal NEGATIVE [facility] Comment on above: Performed By: #### D RUGRPD #### [facility] [address] [place] [address] Dr. Brittanie Burns CUT-OFFS SEE BELOW Normal [facility] Comment on above: Result Comment: AMP [...] ng/mL Performed By: #### D RUGRPD #### [facility] [address] [place] [address] Dr. Brittanie Burns DRUG CUT HEADER DRUG CLASS TEST SYSTEM CUT-OFF CONCENTRATIONS ARE FOLLOWS: Normal [facility] Comment on above: Performed By: #### D RUGRPD #### [facility] [address] [place] [address] Dr. Brittanie Burns mAMP Negative Normal NEGATIVE [facility] Comment on above: Performed By: #### D RUGRPD #### [facility] [address] [place] [address] Dr. Brittanie Burns MTD Negative Normal NEGATIVE [facility] Comment on above: Performed By: #### D RUGRPD #### [facility] [address] [place] [address] Dr. Brittanie Burns OPI Negative Normal NEGATIVE [facility] Comment on above: Performed By: #### D RUGRPD #### [facility] [address] [place] [address] Dr. Brittanie Burns OXY Negative Normal NEGATIVE [facility] Comment on above: Performed By: #### D RUGRPD #### [facility] [address] [place] [address] Dr. Brittanie Burns PCP Negative Normal NEGATIVE [facility] Comment on above: Performed By: #### D RUGRPD #### [facility] [address] [place] [address] Dr. Brittanie Burns PPX Negative Normal NEGATIVE [facility] Comment on above: Performed By: #### D RUGRPD #### [facility] [address] [place] [address] Dr. Brittanie Burns TCA Negative Normal NEGATIVE [facility] Comment on above: Performed By: #### D RUGRPD #### [facility] [address] [place] [address] Dr. Brittanie Burns THC Positive Abnormal NEGATIVE [facility] Comment on above: Performed By: #### D RUGRPD #### [facility] [address] [place] [address] Dr. Brittanie Burns ER URINE PROFILEon 3 Bilirubin Ql (U) Negative Normal NEGATIVE [facility] Comment on above: Performed By: #### D RUGRPD #### [facility] [address] [address] [address] Brittanie Burns Clarity (U) CLEAR Normal CLEAR [facility] Comment on above: Performed By: #### D RUGRPD #### [facility] [address] [place] [address] Dr. Brittanie Burns Color (U) LT. YELLOW Normal YELLOW [facility] Comment on above: Performed By: #### D RUGRPD #### [facility] [address] [place] [address] Dr. Brittanie MCCLELLAN A micrscopic examination will be performed if indicated. Normal [facility] Comment on above: Performed By: #### D RUGRPD #### [facility] [address] [place] [address] Dr. Brittanie Burns Glucose Ql (U) Negative Normal NEGATIVE [facility] Comment on above: Performed By: #### D RUGRPD #### [facility] [address] [place] [address] Dr. Brittanie Burns Hemoglobin Ql (U) SMALL Abnormal NEGATIVE [facility] Comment on above: Performed By: #### D RUGRPD #### [facility] [address] [place] [address] Dr. Brittanie Burns Ketones Ql (U) Negative Normal NEGATIVE [facility] Comment on above: Performed By: #### D RUGRPD #### [facility] [address] [place] [address] Dr. Brittanie Burns LEUKOCYTES Negative Normal NEGATIVE [facility] Comment on above: Performed By: #### D RUGRPD #### [facility] [address] [place] [address] Dr. Brittanie Burns Nitrite Ql (U) Negative Normal NEGATIVE [facility] Comment on above: Performed By: #### D RUGRPD #### [facility] [address] [place] [address] Dr. Brittanie Burns pH (U) 6.0 [pH] Normal 5-9 [facility] Comment on above: Performed By: #### D RUGRPD #### [facility] [address] [place] [address] Dr. Brittanie Burns SPEC GRAVITY 1.010 Normal 1.005-<=1.025 [facility] Comment on above: Performed By: #### D RUGRPD #### [facility] [address] [place] [address] Dr. Brittanie Burns UA PROTEIN Negative Normal NEGATIVE/ TRACE [facility] Comment on above: Performed By: #### D RUGRPD #### [facility] [address] [place] [address] Dr. Brittanie Burns UR MICRO IND INDICATED Normal [facility] Comment on above: Performed By: #### D RUGRPD #### [facility] [address] [place] [address] Dr. Brittanie Burns Urobilinogen Qn (U) 0.2 {Alice'U}/dL Normal 0.2 - 1. 0 [facility] Comment on above: Performed By: #### D RUGRPD #### [facility] [address] [place] [address] Dr. Brittanie Burns ETHANOL (BLD ALC)on 10-17-19 ALC NOTE NOTE: 80 mg/dl is the legal limit for a blood alcohol level Normal [facility] Comment on above: Performed By: #### L YMA #### [facility] [address] [place] [address] Dr. Brittanie Burns Ethanol [Mass/Vol] mg/dL Normal [facility] Comment on above: Performed By: #### L YMA #### [facility] [address] [place] [address] Dr. Brittanie Burns LACTATE/LACTIC ACIDon 2022 Lactate [Moles/Vol] 1.1 mmol/L Normal 0.4-2.0 [facility] Comment on above: Performed By: #### L ACT #### [facility] [address] [place] [address] Dr. Brittanie Burns POINT OF CARE GLUCOSEon 09-22 Glucose [Mass/Vol] 129 mg/dL Critically high 74-106 [facility] Comment on above: Performed By: #### D RUGRPD #### [facility] [address] [address] [address] Brittanie Burns PROF 14(COMP METB)on 023 Albumin [Mass/Vol] 3.6 g/dL Normal 3.4-5.0 [facility] Comment on above: Performed By: #### B 12FOL #### [facility] [address] [address] [address] Brittanie Burns Albumin/Globulin [Mass ratio] 0.9 {ratio} Normal [facility] Comment on above: Performed By: #### B 12FOL #### [facility] [address] [address] [address] Brittanie Burns ALP [Catalytic activity/Vol] 87 U/L Normal 46-116 [facility] Comment on above: Performed By: #### B 12FOL #### [facility] [address] [address] [address] Brittanie Burns ALT [Catalytic activity/Vol] 13 U/L Critically low 16-63 [facility] Comment on above: Performed By: #### B 12FOL #### [facility] [address] [address] [address] Brittanie Burns Anion gap [Moles/Vol] 17.9 mmol/L Normal [facility] Comment on above: Performed By: #### B 12FOL #### [facility] [address] [address] [address] Brittanie Burns AST [Catalytic activity/Vol] 20 U/L Normal 15-37 [facility] Comment on above: Performed By: #### B 12FOL #### [facility] [address] [address] [address] Brittanie Burns Bilirubin [Mass/Vol] 0.3 mg/dL Normal 0.2-1.0 [facility] Comment on above: Performed By: #### B 12FOL #### [facility] [address] [address] [address] Brittanie Burns Calcium [Mass/Vol] 9.5 mg/dL Normal 8.5-10.1 [facility] Comment on above: Performed By: #### B 12FOL #### [facility] [address] [address] [address] Brittanie Burns Chloride [Moles/Vol] 103 mmol/L Normal 98-107 [facility] Comment on above: Performed By: #### B 12FOL #### [facility] [address] [address] [address] Brittanie Burns CO2 [Moles/Vol] 22.2 mmol/L Normal 21.0-32.0 [facility] Comment on above: Performed By: #### B 12FOL #### [facility] [address] [address] [address] Brittanie Burns Creatinine [Mass/Vol] 7.79 mg/dL Critically high 0.70-1.30 [facility] Comment on above: Performed By: #### B 12FOL #### [facility] [address] [address] [address] Brittanie Burns EGFR-AF BERMUDIAN 8 mL/min/1.73m2 Critically low >=60 [facility] Comment on above: Performed By: #### B 12FOL #### [facility] [address] [address] [address] Brittanie Burns EGFR-NON AF BERMUDIAN 7 mL/min/1.73m2 Critically low >=60 [facility] Comment on above: Performed By: #### B 12FOL #### [facility] [address] [address] [address] Brittanie Burns Globulin (S) [Mass/Vol] 4.0 g/dL Normal [facility] Comment on above: Performed By: #### B 12FOL #### [facility] [address] [address] [address] Brittanie Burns Glucose [Mass/Vol] 129 mg/dL Critically high 74-106 [facility] Comment on above: Performed By: #### B 12FOL #### [facility] [address] [address] [address] Brittanie Burns Potassium [Moles/Vol] 5.1 mmol/L Normal 3.5-5.1 [facility] Comment on above: Performed By: #### B 12FOL #### [facility] [address] [place] [address] Dr. Brittanie Burns Protein [Mass/Vol] 7.6 g/dL Normal 6.4-8.2 [facility] Comment on above: Performed By: #### B 12FOL #### [facility] [address] [place] [address] Dr. Brittanie Burns Sodium [Moles/Vol] 138 mmol/L Normal 136-145 [facility] Comment on above: Performed By: #### B 12FOL #### [facility] [address] [place] [address] Dr. Brittanie Burns Urea nitrogen [Mass/Vol] 44.0 mg/dL Critically high 7.0-18.0 [facility] Comment on above: Performed By: #### B 12FOL #### [facility] [address] [place] [address] Dr. Brittanie Burns Urea nitrogen/Creatinine [Mass ratio] 5.6 mg/mg Normal [facility] Comment on above: Performed By: #### B 12FOL #### [facility] [address] [place] [address] Dr. Brittanie Burns PROF CHEM 8 (BAS METB)on Anion gap [Moles/Vol] 15.7 mmol/L Normal [facility] Comment on above: Performed By: #### B MP #### [facility] [address] [place] [address] Dr. Brittanie Bursn Calcium [Mass/Vol] 8.7 mg/dL Normal 8.5-10.1 [facility] Comment on above: Performed By: #### B MP #### [facility] [address] [place] [address] Dr. Brittanie Burns Chloride [Moles/Vol] 108 mmol/L Critically high 98-107 [facility] Comment on above: Performed By: #### B MP #### [facility] [address] [place] [address] Dr. Brittanie Burns CO2 [Moles/Vol] 23.1 mmol/L Normal 21.0-32.0 [facility] Comment on above: Performed By: #### B MP #### [facility] [address] [address] [address] Brittanie Burns Creatinine [Mass/Vol] 7.19 mg/dL Critically high 0.70-1.30 [facility] Comment on above: Performed By: #### B MP #### [facility] [address] [address] [address] Brittanie Burns EGFR-AF BERMUDIAN 9 mL/min/1.73m2 Critically low >=60 [facility] Comment on above: Performed By: #### B MP #### [facility] [address] [address] [address] Brittanie Burns EGFR-NON AF BERMUDIAN 8 mL/min/1.73m2 Critically low >=60 [facility] Comment on above: Performed By: #### B MP #### [facility] [address] [address] [address] Brittanie Burns Glucose [Mass/Vol] 102 mg/dL Normal 74-106 [facility] Comment on above: Performed By: #### B MP #### [facility] [address] [address] [address] Brittanie Burns Potassium [Moles/Vol] 4.8 mmol/L Normal 3.5-5.1 [facility] Comment on above: Performed By: #### B MP #### [facility] [address] [address] [address] Brittanie Burns Sodium [Moles/Vol] 142 mmol/L Normal 136-145 [facility] Comment on above: Performed By: #### B MP #### [facility] [address] [address] [address] Brittanie Burns Urea nitrogen [Mass/Vol] 44.0 mg/dL Critically high 7.0-18.0 [facility] Comment on above: Performed By: #### B MP #### [facility] [address] [address] [address] Brittanie Burns Urea nitrogen/Creatinine [Mass ratio] 6.1 mg/mg Normal [facility] Comment on above: Performed By: #### B MP #### [facility] [address] [place] [address] Dr. Brittanie Burns PROTIMEon 10-16-2022 INR Coag (PPP) [Relative time] {INR} Normal [facility] Comment on above: Performed By: #### B 12FOL #### [facility] [address] [place] [address] Dr. Brittanie Burns INR GUIDELINES SEE BELOW Normal [facility] Comment on above: Result Comment: GINGER RED INR: 2.0 - 3.0 CONDITIONS NOT LISTED BELOW 2.5 - 3.5 FOR PROSTHETIC HEART VALVE REPLACEMENT 2.5 - 3.5 RECURRENT THROMBOSIS Performed By: #### B 12FOL #### [facility] [address] [place] [address] Dr. Brittanie Burns PT Coag (PPP) [Time] 9.8 s Normal 9.0-11.6 [facility] Comment on above: Performed By: #### B 12FOL #### [facility] [address] [place] [address] Dr. Brittanie Burns PTTon 10-16-2022 aPTT Coag (Bld) [Time] 27.1 s Normal 22.3-36.2 [facility] Comment on above: Performed By: #### B 12FOL #### [facility] [address] [place] [address] Dr. Brittanie Burns SALICYLATEon 10-16-2022 SALICYLATE 7.2 mg/dL Normal <=19.9 [facility] Comment on above: Performed By: #### L YMA #### [facility] [address] [place] [address] Dr. Brittanie Burns URINE MICROSCOPIC ONLYon BACTERIA SMALL Abnormal NONE SEEN [facility] Comment on above: Performed By: #### D RUGRPD #### [facility] [address] [place] [address] Dr. Brittanie Burns Bacteria identified Cx Nom (U) INDICATED Normal [facility] Comment on above: Performed By: #### D RUGRPD #### [facility] [address] [address] [address] Brittanie Burns CAST NONE SEEN Normal NONE SEEN [facility] Comment on above: Performed By: #### D RUGRPD #### [facility] [address] [place] [address] Dr. Brittanie Burns Crystals LM Nom (Urine sed) NONE SEEN Normal NONE SEEN The [facility] Comment on above: Performed By: #### D RUGRPD #### [facility] [address] [place] [address] Dr. Brittanie Burns Epithelial cells LM Ql (Urine sed) RARE Normal NONE SEEN /RARE [facility] Comment on above: Performed By: #### D RUGRPD #### [facility] [address] [place] [address] Dr. Brittanie Burns MUCOUS NONE SEEN Normal NONE SEEN [facility] Comment on above: Performed By: #### D RUGRPD #### [facility] [address] [place] [address] Dr. Brittanie Burns RBC 2-5 Abnormal 0-2 [facility] Comment on above: Performed By: #### D RUGRPD #### [facility] [address] [place] [address] Dr. Brittanie Burns WBC 2-5 Abnormal NONE SEEN [facility] Comment on above: Performed By: #### D RUGRPD #### [facility] [address] [place] [address] Dr. Brittanie Burns XR CHEST 1 Von 10-16-2022 XR CHEST 1 V EXAM: XR CHEST 1 V HISTORY: Acute confusion COMPARISON: 10/21/2020 TECHNIQUE: Single view of the chest FINDINGS: Heart size normal. No focal consolidation, pleural effusion, pulmonary congestion or pneumothorax. Patient is rotated. Multiple external lines. IMPRESSION: No acute findings. Electronically authenticated by: MYKEL ZELAYA Date: 2022-10-16 13:33 Normal [facility] Encounters Encounter Date Encounter Type Care Provider Facility Start: 12-21-2022 End: 12-21-2022 ambulatory SHAIKH Cory SALINAS Facility: Start: 11-25-2022 End: 11-26-2022 ambulatory SHAIKH Cory SALINAS Facility:[facility] Start: 11-18-2022 End: 11-18-2022 ambulatory SHAIKH Cory SALINAS Facility:[facility] Start: 10-31-2022 End: 11-01-2022 ambulatory [facility] Start: 10-31-2022 End: 10-31-2022 Subsequent hospital visit by physician Ruben Soto MD Work Phone: [facility] Start: 10-26-2022 End: 10-27-2022 ambulatory RUBEN Frazier [facility] Start: 10-26-2022 End: 10-26-2022 Subsequent hospital visit by physician Ruben Soto MD Work Phone: [facility] Start: 10-24-2022 End: 10-25-2022 ambulatory SCOUT [facility] Start: 10-16-2022 End: 10-21-2022 Evaluation [...] above: Performed By: #### B 12FOL #### [facility] [address] [place] [address] Dr. Brittanie Burns Start: 10-31-2022 Basic metabolic pane l calcium total Melodie Nixon MD Work Phone: Start: 10-26-2022 Lipid panel Ruben morales MD Work Phone: Plan of Treatment Date Care Activity Detail Author Start: 02-21-2023 Influenza vaccination Flu vacc ine (Season Ended) [facility] Start: 1969 DTaP/Tdap/Td vaccine (1 - Tdap) DTaP/Tdap/Td vaccine (1 - Tdap) [facility] Start: 01-08-1951 COVID-19 Vaccine (#1) COVID-19 Vacci ne (#1) [facility] Payers Date Payer Category Payer Unknown [id number] 1959 Medicaid [id number] 1959 Medicare [id number] 1950 Unknown [id number] 2.16.84 [id number] 1950 Unknown [id number] 2.16.8 [id number] 1950 Unknown [id number] 2.16.84 [id number] 1950 Unknown [id number] 2.16.84 [id number] 1950 Unknown [id number] 2.16.84 [id number] 1950 Unknown [id number] 2.16.84 [id number] 1950 Unknown [id number] 2.16.84 [id number] 1950 Unknown [id number] 2.16.84 [id number] Social History Date Type Detail Facility Tobacco smoking stat [facility] Tobacco smoking consumption unknown [facility] Work Phone: Start: 1950 Sex Assigned At Not on file [facility] [employer] Phone: Clinical Note 06-23-2022 Note Date & [...] by: KYLE DOLAN Date: 2022-06-22 23:22 The [facility] Summary Purpose Family History No Family History Records FoundNo Family History Records FoundNo Family History Records Found Advance Directives No Advanced Directives Records FoundNo Advanced Directives Records FoundNo Advanced Directives Records Found Additional Source Comments (unrecognized sect ion and content) No Status Records FoundNo Status Records FoundNo Status Records Found INFORMATION SOURCE (unrecogn ized section and content) DATE CREATED AUTHOR 06/11/2020 [facility] DATE CREATED AUTHOR AUTHOR'S ORGANIZ ATION 11/01/2022 Karin [facility] DATE CREATED AUTHOR AUTHOR'S ORGANIZ ATION 12/30/2022 The [facility] Care Teams (unrecognized sec tion and content) 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 [facility] [employer] [facility]. provides no warranty or guarantee of the accuracy or completeness of information in this document.
[2023-07-26 19:15] LABS: Adenovirus NOT DETECTED (NOT DETECTE); Bordetella parapertussis NOT DETECTED (NOT DETECTE); Coronavirus 229E NOT DETECTED (NOT DETECTE); Coronavirus HKU1 NOT DETECTED (NOT DETECTE); Coronavirus NL63 NOT DETECTED (NOT DETECTE); Coronavirus OC43 NOT DETECTED (NOT DETECTE); Human Metapneumovirus NOT DETECTED (NOT DETECTE); Human Rhinovirus/Enterovirus NOT DETECTED (NOT DETECTE); Influenza A NOT DETECTED (NOT DETECTE); Influenza B NOT DETECTED (NOT DETECTE); Mycoplasma pneumoniae NOT DETECTED (NOT DETECTE); Parainfluenza Virus 1 NOT DETECTED (NOT DETECTE); Parainfluenza Virus 2 NOT DETECTED (NOT DETECTE); Parainfluenza Virus 3 NOT DETECTED (NOT DETECTE); Parainfluenza Virus 4 NOT DETECTED (NOT DETECTE); Respiratory Syncytial Virus NOT DETECTED (NOT DETECTE); SARS-CoV-2 NOT DETECTED (NOT DETECTE)
[2023-07-26 19:43] LABS: Lactate/Lactic Acid 1.3 mmol/L (0.4-2.0)
[2023-07-26] MEDS: JEVITY 1.5 CAL 237 ML LIQUID G-TUBE ×2 (21:03→23:44)
[2023-07-26] MEDS: ENOXAPARIN SODIUM 40 MG/0.4 ML SYRINGE SUBQ (21:03)
[2023-07-26] MEDS: GABAPENTIN 300 MG CAPSULE 600 MG PO (21:04)
[2023-07-26] MEDS: PANTOPRAZOLE SODIUM 40 MG VIAL IV (21:04)
[2023-07-26] MEDS: LACTATED RINGER'S SOLUTION 1,000 ML 125 ML IV (21:04)
[2023-07-26] MEDS: BACLOFEN 10 MG TABLET FEED TUBE (21:07)
[2023-07-26] MEDS: VALPROIC ACID 250 MG/5 ML 125 MG G-TUBE (21:07)
[2023-07-26] MEDS: QUETIAPINE FUMARATE 25 MG TABLET 75 MG G-TUBE (21:08)
[2023-07-26] MEDS: ERTAPENEM SODIUM 1 GM in 0.9 % SODIUM CHLORIDE 50 ML IV (21:28)
[2023-07-27] VITALS (72 sets, daily range): BP systolic 99–141; BP diastolic 41–86; PULSE 67–100; RESP 12–34; TEMP 37.2–37.7; O2SAT 90–99; BMI 20.1
[2023-07-27 04:54] LABS: Hematocrit 35.4 % (42.0-54.0); Hemoglobin 10.8 g/dL (14.0-18.0); Mean Corpuscular HGB Conc 30.5 g/dL (29.9-35.2); Mean Corpuscular Hemoglobin 29.1 pg (25.9-34.0); Mean Corpuscular Volume 95.4 fL (80.0-94.0); Mean Platelet Volume 9.6 fL (9.5-13.5); Platelet Count 458 10^3/uL (150-450); Red Blood Count 3.71 10^6/uL (4.70-6.10); Red Cell Distribution Width 15.2 % (11.0-15.0)
--- NOTE | 2023-07-27 05:00 | XR_ITS ---
The [address] [address] Patient Name: SHELBY VALERIO MRN: [id number] date: 1950 Sex: M Assigned Patient Location: ICU Current Patient Location: ICU Accession/Order Number: [id number] Exam Date: 07/27/2023 05:20 Report Date: 07/27/2023 07:18 At the request of: MIRIAN ARGUELLES Procedure: XR chest 1V EXAM: XR chest 1V HISTORY: Pneumonia COMPARISON: 07/26/2023 TECHNIQUE: Portable FINDINGS: LUNGS: Low lung volumes. Mild perihilar infiltrates right greater than left VASCULATURE: Mild left basilar infiltrate. Mildly increased central pulmonary vascularity PLEURA: No pneumothorax, effusion, or pleural thickening. CARDIAC: No cardiomegaly or cardiac silhouette abnormality. MEDIASTINUM: No visible mass or adenopathy. BONES: No fracture or visible bone lesion. OTHER: Negative. XR/XR chest 1V IMPRESSION: Pulmonary vascular congestion Electronically authenticated by: RENEE BARBOZA Date: 07/27/2023 07:18
[2023-07-27 05:11] LABS: Alanine Aminotransferase 34 U/L (16-63); Albumin Globulin Ratio 0.4; Albumin Level 1.8 g/dL (3.4-5.0); Alkaline Phosphatase 72 U/L (46-116); Anion Gap 5.7; Aspartate Amino Transferase 15 U/L (15-37); BUN Creatinine Ratio 34.5; Bilirubin Total 0.3 mg/dL (0.2-1.0); Calcium 9.5 mg/dL (8.5-10.1); Carbon Dioxide 35.9 mmol/L (21.0-32.0); Chloride 106 mmol/L (98-107); Estimated GFR (African America >60 (>=60); Estimated GFR (Non-African Ame >60 (>=60); Globulin 4.7 g/dL; Glucose 109 mg/dL (74-106); Potassium 4.6 mmol/L (3.5-5.1); Sodium 143 mmol/L (136-145); Total Protein 6.5 g/dL (6.4-8.2)
[2023-07-27] MEDS: BACLOFEN 10 MG TABLET FEED TUBE ×3 (05:11→22:03)
[2023-07-27] MEDS: JEVITY 1.5 CAL 237 ML LIQUID G-TUBE ×5 (05:11→23:49)
[2023-07-27] MEDS: LACTATED RINGER'S SOLUTION 1,000 ML 125 ML IV ×3 (05:11→22:07)
[2023-07-27] MEDS: VALPROIC ACID 250 MG/5 ML 125 MG G-TUBE ×3 (05:11→22:02)
[2023-07-27 05:21] LABS: Atypical Lymphocytes Abs Man 1.75; Poikilocytosis 3+
[2023-07-27 05:22] LABS: Microcytosis 3+
[2023-07-27] MEDS: GABAPENTIN 300 MG CAPSULE 600 MG PO ×2 (09:23→22:03)
[2023-07-27] MEDS: ASPIRIN 81 MG TAB.CHEW FEED TUBE (09:23)
--- NOTE | 2023-07-27 10:50 | CM.NOTE ---
Rounding with Dr. Austin, discussed with Respiratory therapy about NT suctioning for sputum culture d/t readmission. No discharge today. Pt remains on BIPAP.
--- NOTE | 2023-07-27 11:30 | CM.NOTE ---
Pt given verbal consent to sign Important Message From [employer] after discussing with him reason for form. Pt verbalizes understanding.
--- NOTE | 2023-07-27 11:38 | RESP.RT ---
NT suctioned for a large amount thick yellow also obtained a sputum sample to be sent out.
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
--- NOTE | 2023-07-27 11:45 | CM.NOTE ---
Spoke with pt's son also per telephone to also discuss IMM form, verbalizes understanding.
[2023-07-27] MEDS: METHYLPREDNISOLONE SOD SUCC PF 125 MG/2 ML VIAL 60 MG IVP ×2 (13:01→18:35)
[2023-07-27 13:09] LABS: Bilirubin Urine NEGATIVE (NEGATIVE); Blood Urine LARGE (NEGATIVE); Clarity Urine CLEAR (CLEAR); Color Urine YELLOW (YELLOW); Glucose Urine UA NEGATIVE (NEGATIVE); Ketones Urine NEGATIVE (NEGATIVE); Leukocyte Esterase Urine NEGATIVE (NEGATIVE); Nitrite Urine NEGATIVE (NEGATIVE); Protein Urine NEGATIVE (NEG/TRACE)
[2023-07-27 13:10] LABS: Urine Microscopic Indicated YES
[2023-07-27 13:34] LABS: Bacteria Urine NONE SEEN #/HPF (NONE SEEN); Mucus Urine SMALL (NONE SEEN); RBC Urine 50-75 #/HPF (0-2); Squamous Epithelial Cell Urine FEW #/LPF (NONE/RARE); WBC Urine 0-2 #/HPF (NONE SEEN)
[2023-07-27 13:35] LABS: Amorphous Sediment Urine MANY; Calcium Oxalate Crystals Urine RARE; Crystals Seen? Seen #/HPF (None Seen)
--- NOTE | 2023-07-27 14:35 | CM.NOTE ---
Updates sent to [facility].
--- NOTE | 2023-07-27 15:09 | NUTR.NU ---
NPO status Tube feeding via peg tube Jevity 1.5 @ 237 ml q 4 h bolus via peg tube furnishes 2130 kcal; 90.6g protein 1066 ml free water from tube feeding formula Meets calculated protein and calorie needs. tolerated tube feeding per nursing staff
[2023-07-27] MEDS: CLINDAMYCIN PHOS 300 MG/50 ML PIGGYBACK 100 MG IV ×2 (16:45→22:08)
[2023-07-27] MEDS: IPRATROPIUM/ALBUTEROL SULFATE 3 ML AMPUL.NEB IH ×2 (19:42→23:37)
[2023-07-27] MEDS: PANTOPRAZOLE SODIUM 40 MG VIAL IV (19:45)
[2023-07-27] MEDS: ERTAPENEM SODIUM 1 GM in 0.9 % SODIUM CHLORIDE 50 ML IV (19:45)
[2023-07-27] MEDS: ENOXAPARIN SODIUM 40 MG/0.4 ML SYRINGE SUBQ (22:02)
[2023-07-27] MEDS: QUETIAPINE FUMARATE 25 MG TABLET 75 MG G-TUBE (22:02)
[2023-07-28] VITALS (85 sets, daily range): BP systolic 76–132; BP diastolic 41–78; PULSE 61–109; RESP 12–66; TEMP 36.5–37.7; O2SAT 78–100
[2023-07-28] MEDS: METHYLPREDNISOLONE SOD SUCC PF 125 MG/2 ML VIAL 60 MG IVP ×4 (00:35→17:05)
[2023-07-28] MEDS: CLINDAMYCIN PHOS 300 MG/50 ML PIGGYBACK 100 MG IV ×4 (04:02→22:17)
[2023-07-28 04:04] LABS: Basophils Percent Auto 0.1 % (0.2-2.0); Hematocrit 36.2 % (42.0-54.0); Hemoglobin 10.8 g/dL (14.0-18.0); Immature Granulocytes Abs Auto 0.08 10^3/uL (0.00-0.03); Immature Granulocytes Pct Auto 0.5 % (0.0-0.5); Lymphocytes Absolute Auto 0.5 10^3/uL (1.2-3.8); Lymphocytes Percent Auto 2.8 % (20.5-60.0); Mean Corpuscular HGB Conc 29.8 g/dL (29.9-35.2); Mean Corpuscular Hemoglobin 28.6 pg (25.9-34.0); Mean Corpuscular Volume 95.8 fL (80.0-94.0); Mean Platelet Volume 9.8 fL (9.5-13.5); Monocytes Absolute Auto 0.2 10^3/uL (0.3-0.8); Monocytes Percent Auto 1.5 % (1.7-12.0); Neutrophils Absolute Auto 15.7 10^3/uL (1.4-6.5); Neutrophils Percent Auto 95.1 % (43.0-75.0); Platelet Count 481 10^3/uL (150-450); Red Blood Count 3.78 10^6/uL (4.70-6.10); Red Cell Distribution Width 14.6 % (11.0-15.0); White Blood Count 16.5 10^3/uL (4.0-11.0)
[2023-07-28 04:24] LABS: Alanine Aminotransferase 34 U/L (16-63); Albumin Globulin Ratio 0.4; Alkaline Phosphatase 75 U/L (46-116); Anion Gap 3.5; Aspartate Amino Transferase 15 U/L (15-37); BUN Creatinine Ratio 26.1; Bilirubin Total 0.1 mg/dL (0.2-1.0); Calcium 9.6 mg/dL (8.5-10.1); Carbon Dioxide 36.1 mmol/L (21.0-32.0); Chloride 102 mmol/L (98-107); Estimated GFR (African America >60 (>=60); Estimated GFR (Non-African Ame >60 (>=60); Globulin 5.1 g/dL; Glucose 239 mg/dL (74-106); Potassium 4.6 mmol/L (3.5-5.1); Sodium 137 mmol/L (136-145); Total Protein 7.1 g/dL (6.4-8.2)
[2023-07-28] MEDS: JEVITY 1.5 CAL 237 ML LIQUID G-TUBE ×6 (04:59→22:18)
[2023-07-28] MEDS: VALPROIC ACID 250 MG/5 ML 125 MG G-TUBE ×3 (05:00→22:12)
[2023-07-28] MEDS: BACLOFEN 10 MG TABLET FEED TUBE ×3 (05:01→22:12)
[2023-07-28] MEDS: LACTATED RINGER'S SOLUTION 1,000 ML 125 ML IV ×3 (07:18→22:08)
--- NOTE | 2023-07-28 07:34 | CT_ITS ---
[address] [address] Patient Name: SHELBY VALERIO MRN: [id number] date: 1950 Sex: M Assigned Patient Location: ICU Current Patient Location: ICU Accession/Order Number: [id number] Exam Date: 07/28/2023 11:45 Report Date: 07/28/2023 12:52 At the request of: MIRIAN ARGUELLES Procedure: CT angio chest EXAM: CT angio chest HISTORY: Respiratory distress COMPARISON: None. TECHNIQUE: CT chest with intravenous contrast was performed with timing for the evaluation for pulmonary arteries. Multiplanar reformats were performed. MIP (maximum intensity projection) images or 3D post processing was performed. Dose reduction techniques were achieved by using automated exposure control and/or adjustment of mA and/or kV according to patient size and/or use of iterative reconstruction technique. FINDINGS: Lungs: There is bilateral centrilobular emphysema. No pneumothorax. Small left greater than right pleural effusions with bibasilar atelectasis and/or resolution. There are patchy bilateral groundglass opacities. Findings may represent multifocal pneumonia including Covid or aspiration pneumonia. Airways: Normal. Mediastinum: No adenopathy. Aorta: No aneurysm. Cardiac: Normal size. No pericardial effusion. Pulmonary vasculature: Diagnostic opacification of pulmonary arteries without evidence of pulmonary embolus. Normal morphology. Bones: No acute bony abnormality. Axilla: No adenopathy. Thyroid gland: No abnormality demonstrated on provided imaging. Soft tissues: Unremarkable. Upper abdomen: Small hiatal hernia. Fluid is noted in the distal esophagus, likely representing associated esophageal reflux. Additional findings: None. CT/CT angio chest IMPRESSION: Study is limited due to motion artifact. No evidence of pulmonary embolus. Small left greater than right pleural effusions with bibasilar atelectasis and/or resolution. There are patchy bilateral groundglass opacities. Findings may represent multifocal pneumonia including Covid or aspiration pneumonia. Small hiatal hernia. Fluid is noted in the distal esophagus, likely representing associated esophageal reflux. Electronically authenticated by: LIGIA ALVAREZ Date: 07/28/2023 12:52
--- NOTE | 2023-07-28 07:34 | CT_ITS ---
The [address] [address] Patient Name: SHELBY VALERIO MRN: [id number] date: 1950 Sex: M Assigned Patient Location: ICU Current Patient Location: ICU Accession/Order Number: [id number] Exam Date: 07/28/2023 11:45 Report Date: 07/28/2023 12:10 At the request of: MIRIAN ARGUELLES Procedure: CT head/brain wo con EXAMINATION: CT head/brain wo con, 07/28/2023 11:45 AM EST HISTORY: Change in mental status COMPARISON: None. TECHNIQUE: CT scan of the head was performed without IV contrast. CT dose reduction technique was used, including Automated Exposure Control. FINDINGS: BRAIN: Large area of encephalomalacia right parietal and temporal lobe consistent with a remote MCA territory infarct. Area of encephalomalacia left cerebellum, remote infarct. Moderate supratentorial atrophy. Moderate supratentorial white matter hypoattenuation likely chronic small vessel ischemic changes . No acute hemorrhage or mass CSF SPACES: Moderate lateral ventriculomegaly SKULL: No fracture, mass, or other significant visible lesion. SINUSES: Left maxillary sinus disease ORBITS: No appreciable abnormality on the limited views. OTHER: Negative CT/CT head/brain wo con IMPRESSION: Remote right MCA and left cerebellar infarcts Moderate atrophy and white matter disease No acute intracranial abnormality Electronically authenticated by: RENEE BARBOZA Date: 07/28/2023 12:10
[2023-07-28 07:51] LABS: pH ABG 7.071 (7.350-7.450)
[2023-07-28 07:52] LABS: Allen Test POSITIVE (POSITIVE); Base Excess ABG 4.6 mmol/L (-2.0-2.0); HCO3 ABG 34.7 mmol/L (22.0-26.0); Oxygen Saturation ABG 96.6 %
[2023-07-28 07:53] LABS: BIPAP Pressure 16/8; Fractionated Inspired Oxygen 100 %; O2 Mode BIPAP; Puncture Site RR
--- NOTE | 2023-07-28 09:23 | CM.NOTE ---
Rounding with Dr. Austin and RN. Pt. is on BiPAP at this time. No plan for discharge. When medically stable, plan is to return to [facility].
[2023-07-28] MEDS: ASPIRIN 81 MG TAB.CHEW FEED TUBE (09:36)
[2023-07-28] MEDS: GABAPENTIN 300 MG CAPSULE 600 MG PO ×2 (09:36→20:06)
[2023-07-28 10:26] LABS: Glucometer 188 mg/dL (74-106)
--- NOTE | 2023-07-28 11:07 | P.PN_ITS ---
Progress Note: Subjective Subjective Interval history: Patient not doing well this am. Nursing noted patient to be obtunded and not alert or responding. Back on BiPAP and ABG showed CO2 of 120. Afebrile and WBC improved. Sputum culture obtained yesterday. Tolerating tube feeds. Vitals stable. Did not have worsening hypoxia prior to resuming BiPAP. Exam Constitutional Vital Signs, click to edit/add: Last Vital Signs Temp 97.7 F 07/28/23 09:00 Pulse 88 07/28/23 11:00 Resp 20 07/28/23 07:55 BP 89/52 07/28/23 05:00 Pulse Ox 90 L 07/28/23 11:00 O2 Del Method Nonrebreather 07/28/23 05:00 O2 Flow Rate 15 07/28/23 05:00 FiO2 30 07/28/23 02:21 Documenting provider has reviewed patient's vital signs: yes General appearance: lethargic HENMT Common normals: normocephalic Eye Common normals: PERRL and EOMs intact bilaterally Respiratory Common normals: normal respiratory effort and clear to auscultation bilaterally Cardio Common normals: regular rate, regular rhythm, no gallops, no murmurs and no rub GI Common normals: Normal to inspection, nondistended, normoactive bowel sounds present and non-tender Extremity Common normals: no pedal edema Progress Note: Objective Labs Labs: Short CBC 07/28/23 Range/Units 03:50 WBC 16.5 H (4.0-11.0) 10^3/uL Hgb 10.8 L (14.0-18.0) g/dL Hct 36.2 L (42.0-54.0) % Plt Count 481 H (150-450) 10^3/uL BMP 07/28/23 03:50 Sodium 137 Potassium 4.6 Chloride 102 Carbon Dioxide 36.1 H BUN 23.0 H Creatinine 0.88 Glucose 239 H Calcium 9.6 Liver Function 07/28/23 Range/Units 03:50 Total Bilirubin 0.1 L (0.2-1.0) mg/dL AST 15 (15-37) U/L ALT 34 (16-63) U/L Alkaline Phosphatase 75 (46-116) U/L Albumin 2.0 L (3.4-5.0) g/dL Urine 07/27/23 Range/Units 12:40 Urine Color Yellow (YELLOW) Urine Clarity Clear (CLEAR) Urine pH 6.0 (5.0-9.0) Ur Specific [place] 1.020 (1.005-1.025) Urine Protein Negative (NEG/TRACE) mg/dL Urine Glucose (UA) Negative (NEGATIVE) mg/dL Progress Note: A&P Assessment and Plan (1) Sepsis: (2) Aspiration pneumonia: Qualifiers: Aspiration pneumonia type: due to gastric secretions Laterality: unspecified laterality Lung location: unspecified part of lung Qualified Code(s): J69.0 - Pneumonitis due to inhalation of food and vomit (3) Acute respiratory failure with hypercapnia: (4) Acute hypoxic respiratory failure: (5) Acute dehydration: (6) COPD (chronic obstructive pulmonary disease): (7) Type 2 diabetes mellitus: (8) Hypertension: (9) Quadriplegia, post-traumatic: (10) Personal history of traumatic brain injury: Plan Patient obtunded this am and found severe hypercapnia. Improving on BiPAP. Check CT head and CTA chest. WBC improved and continue invanz and clindamycin. Sputum culture obtained and pending. Continue steroids and breathing treatments. Add accuchecks and SS due to history of diabetes and steroids. Urinary Catheter Management Urinary Catheter Management Urethral: Cath placed during this visit: yes Urethral indwelling: Yes Reason for continuing: prolonged immobilization Insertion date: 07/26/23 Insertion time: 16:22
[2023-07-28] MEDS: IPRATROPIUM/ALBUTEROL SULFATE 3 ML AMPUL.NEB IH (11:14)
[2023-07-28 11:19] LABS: ABG PCO2 56.6 mmHg (35.0-45.0); Allen Test POSITIVE (POSITIVE); Base Excess ABG 7.4 mmol/L (-2.0-2.0); HCO3 ABG 32.7 mmol/L (22.0-26.0); Oxygen Saturation ABG 91.3 %; PO2 ABG 55.2 mmHg (80.0-100.0)
[2023-07-28 11:20] LABS: BIPAP Pressure 16/8; Fractionated Inspired Oxygen 30 %; O2 Mode BIPAP; Puncture Site RR; Rate 12
[2023-07-28] MEDS: INSULIN ASPART 300 UNIT/3 ML PEN SUBQ ×3 (11:29→22:13)
--- NOTE | 2023-07-28 11:52 | CM.NOTE ---
Updates sent to [facility].
[2023-07-28 15:39] LABS: SARS-CoV-2 NAA INCONCLUSIVE (NOT DETECTE)
[2023-07-28 15:56] LABS: Glucometer 215 mg/dL (74-106)
[2023-07-28] MEDS: ERTAPENEM SODIUM 1 GM in 0.9 % SODIUM CHLORIDE 50 ML IV (19:54)
[2023-07-28] MEDS: PANTOPRAZOLE SODIUM 40 MG VIAL IV (19:55)
[2023-07-28] MEDS: GUAIFENESIN 600 MG TAB.ER.12H PO (20:05)
[2023-07-28] MEDS: ENOXAPARIN SODIUM 40 MG/0.4 ML SYRINGE SUBQ (20:06)
[2023-07-28] MEDS: QUETIAPINE FUMARATE 25 MG TABLET 75 MG G-TUBE (22:12)
[2023-07-28 22:22] LABS: Glucometer 190 mg/dL (74-106)
[2023-07-29] VITALS (26 sets, daily range): BP systolic 120–153; BP diastolic 66–92; PULSE 62–101; RESP 18–30; TEMP 36.4–37.7; O2SAT 87–99
[2023-07-29] MEDS: METHYLPREDNISOLONE SOD SUCC PF 125 MG/2 ML VIAL 60 MG IVP ×4 (00:10→17:21)
[2023-07-29] MEDS: JEVITY 1.5 CAL 237 ML LIQUID G-TUBE ×6 (03:35→23:42)
[2023-07-29] MEDS: CLINDAMYCIN PHOS 300 MG/50 ML PIGGYBACK 100 MG IV ×4 (04:05→23:42)
[2023-07-29 04:27] LABS: HCO3 ABG 35.9 mmol/L (22.0-26.0); Oxygen Saturation ABG 93.1 %
[2023-07-29 04:28] LABS: Allen Test POSITIVE (POSITIVE); Fractionated Inspired Oxygen 40 %; Liters per Minute 40; O2 Mode VAPOTHERM
[2023-07-29 04:29] LABS: Puncture Site RR
[2023-07-29 04:31] LABS: ABG PCO2 51.7 mmHg (35.0-45.0)
[2023-07-29 04:32] LABS: PO2 ABG 58.9 mmHg (80.0-100.0)
[2023-07-29 06:33] LABS: Basophils Percent Auto 0.1 % (0.2-2.0); Hematocrit 33.5 % (42.0-54.0); Hemoglobin 10.2 g/dL (14.0-18.0); Immature Granulocytes Abs Auto 0.08 10^3/uL (0.00-0.03); Immature Granulocytes Pct Auto 0.5 % (0.0-0.5); Lymphocytes Absolute Auto 0.7 10^3/uL (1.2-3.8); Lymphocytes Percent Auto 4.2 % (20.5-60.0); Mean Corpuscular HGB Conc 30.4 g/dL (29.9-35.2); Mean Corpuscular Hemoglobin 28.4 pg (25.9-34.0); Mean Corpuscular Volume 93.3 fL (80.0-94.0); Mean Platelet Volume 10.2 fL (9.5-13.5); Monocytes Absolute Auto 0.9 10^3/uL (0.3-0.8); Monocytes Percent Auto 5.5 % (1.7-12.0); Neutrophils Absolute Auto 14.4 10^3/uL (1.4-6.5); Neutrophils Percent Auto 89.7 % (43.0-75.0); Platelet Count 512 10^3/uL (150-450); Red Blood Count 3.59 10^6/uL (4.70-6.10); Red Cell Distribution Width 14.7 % (11.0-15.0); White Blood Count 16.1 10^3/uL (4.0-11.0)
[2023-07-29] MEDS: BACLOFEN 10 MG TABLET FEED TUBE ×3 (06:48→22:16)
[2023-07-29] MEDS: VALPROIC ACID 250 MG/5 ML 125 MG G-TUBE ×3 (06:49→22:14)
[2023-07-29] MEDS: LACTATED RINGER'S SOLUTION 1,000 ML 125 ML IV (06:50)
[2023-07-29 06:56] LABS: Alanine Aminotransferase 30 U/L (16-63); Albumin Globulin Ratio 0.4; Alkaline Phosphatase 68 U/L (46-116); Anion Gap 5.6; Aspartate Amino Transferase 14 U/L (15-37); BUN Creatinine Ratio 33.3; Bilirubin Total 0.2 mg/dL (0.2-1.0); Calcium 9.4 mg/dL (8.5-10.1); Carbon Dioxide 33.6 mmol/L (21.0-32.0); Chloride 101 mmol/L (98-107); Estimated GFR (African America >60 (>=60); Estimated GFR (Non-African Ame >60 (>=60); Globulin 4.8 g/dL; Glucose 188 mg/dL (74-106); Potassium 4.2 mmol/L (3.5-5.1); Sodium 136 mmol/L (136-145); Total Protein 6.8 g/dL (6.4-8.2)
[2023-07-29] MEDS: LACTATED RINGER'S SOLUTION 1,000 ML 75 ML IV ×2 (08:02→19:39)
[2023-07-29] MEDS: INSULIN ASPART 300 UNIT/3 ML PEN SUBQ ×4 (08:05→22:37)
[2023-07-29] MEDS: ASPIRIN 81 MG TAB.CHEW FEED TUBE (08:08)
[2023-07-29] MEDS: GABAPENTIN 300 MG CAPSULE 600 MG PO ×2 (08:08→20:02)
[2023-07-29] MEDS: IPRATROPIUM/ALBUTEROL SULFATE 3 ML AMPUL.NEB IH ×4 (08:30→23:32)
--- NOTE | 2023-07-29 10:00 | P.PN_ITS ---
Progress Note: Subjective Subjective Interval history: Patient not doing well this am. Nursing noted patient to be obtunded and not alert or responding. Back on BiPAP and ABG showed CO2 of 120. Afebrile and WBC improved. Sputum culture obtained yesterday. Tolerating tube feeds. Vitals stable. Did not have worsening hypoxia prior to resuming BiPAP. Exam Constitutional Vital Signs, click to edit/add: Last Vital Signs Temp 97.5 F L 07/29/23 07:56 Pulse 88 07/29/23 08:59 Resp 18 07/29/23 07:56 BP 139/76 07/29/23 07:56 Pulse Ox 87 L 07/29/23 08:31 O2 Del Method Vapotherm 07/29/23 08:31 O2 Flow Rate 40 07/29/23 08:31 FiO2 30 07/29/23 08:31 Progress Note: Objective Labs Labs: Short CBC 07/29/23 Range/Units 05:55 WBC 16.1 H (4.0-11.0) 10^3/uL Hgb 10.2 L (14.0-18.0) g/dL Hct 33.5 L (42.0-54.0) % Plt Count 512 H (150-450) 10^3/uL BMP 07/29/23 05:55 Sodium 136 Potassium 4.2 Chloride 101 Carbon Dioxide 33.6 H BUN 22.0 H Creatinine 0.66 L Glucose 188 H Calcium 9.4 Liver Function 07/29/23 Range/Units 05:55 Total Bilirubin 0.2 (0.2-1.0) mg/dL AST 14 L (15-37) U/L ALT 30 (16-63) U/L Alkaline Phosphatase 68 (46-116) U/L Albumin 2.0 L (3.4-5.0) g/dL Progress Note: A&P Assessment and Plan (1) Sepsis: (2) Aspiration pneumonia: Qualifiers: Aspiration pneumonia type: due to gastric secretions Laterality: u nspecified laterality Lung location: unspecified part of lung Qualified Code(s): J69.0 - Pneumonitis due to inhalation of food and vomit (3) Acute respiratory failure with hypercapnia: (4) Acute hypoxic respiratory failure: (5) Acute dehydration: (6) COPD (chronic obstructive pulmonary disease): (7) Type 2 diabetes mellitus: (8) Hypertension: (9) Quadriplegia, post-traumatic: (10) Personal history of traumatic brain injury: Plan Metabolic acidosis, lactic acidosis, respiratory distress, hypotension, leukocytosis, thrombocythemia,Sepsis With acute hypoxic respiratory failure with hypercapnia secondary to aspiration pneumonia, complicated by acute exacerbation of COPD -overall is improving, will continue with current treatment plan. Little wheezing this morning, so we will make his aerosols [id number] in addition to as needed Acute dehydration: -Overall hydration appears somewhat improved, continue current treatment plan Type 2 diabetes mellitus: Continue with insulin sliding scale Hypertension: Continue with current medications Quadriplegia, post-traumatic: Continue with current supportive care Severe protein calorie malnutrition-diet supplement, add Pro-Stat Severity of illness and intensity of services currently provided, will maintain patient inpatient status in the intensive care unit Urinary Catheter Management Urinary Catheter Management Urethral: Cath placed during this visit: yes Urethral indwelling: Yes Reason for continuing: not indwelling catheter Insertion date: 07/26/23 Insertion time: 16:22
[2023-07-29 11:17] LABS: Glucometer 172 mg/dL (74-106)
[2023-07-29] MEDS: PROSTAT 15 GM PROTEIN/100 CAL 30 ML LIQUID PACKET G-TUBE ×2 (13:20→22:16)
[2023-07-29 15:52] LABS: Glucometer 196 mg/dL (74-106)
[2023-07-29] MEDS: PANTOPRAZOLE SODIUM 40 MG VIAL IV (18:51)
[2023-07-29] MEDS: ERTAPENEM SODIUM 1 GM in 0.9 % SODIUM CHLORIDE 50 ML IV (18:51)
[2023-07-29] MEDS: ACETAMINOPHEN 500 MG TABLET 1000 MG PO (19:44)
[2023-07-29] MEDS: GUAIFENESIN 600 MG TAB.ER.12H PO (19:56)
[2023-07-29] MEDS: QUETIAPINE FUMARATE 25 MG TABLET 75 MG G-TUBE (22:16)
[2023-07-29 22:38] LABS: Glucometer 207 mg/dL (74-106)
[2023-07-30] VITALS (12 sets, daily range): BP systolic 140–155; BP diastolic 70–91; PULSE 90–103; RESP 20–34; TEMP 36.9–37.3; O2SAT 91–97
[2023-07-30] MEDS: METHYLPREDNISOLONE SOD SUCC PF 125 MG/2 ML VIAL 60 MG IVP ×3 (01:06→12:31)
--- NOTE | 2023-07-30 01:44 | PC.NURSE ---
pt was coughing a little bit, suction secretions from mouth, raise HOB slightly, removed some heavy secretions from back of throat, yellow in color. upon flush of peg withwater per orders residual amount was less just than 5mL at thsi time
[2023-07-30] MEDS: JEVITY 1.5 CAL 237 ML LIQUID G-TUBE ×3 (03:27→10:36)
[2023-07-30] MEDS: IPRATROPIUM/ALBUTEROL SULFATE 3 ML AMPUL.NEB IH ×2 (04:32→10:46)
[2023-07-30] MEDS: CLINDAMYCIN PHOS 300 MG/50 ML PIGGYBACK 100 MG IV ×2 (05:52→10:35)
[2023-07-30] MEDS: ACETAMINOPHEN 500 MG TABLET 1000 MG PO (05:54)
[2023-07-30 06:16] LABS: Basophils Percent Auto 0.2 % (0.2-2.0); Hematocrit 34.4 % (42.0-54.0); Hemoglobin 10.9 g/dL (14.0-18.0); Immature Granulocytes Abs Auto 0.24 10^3/uL (0.00-0.03); Lymphocytes Absolute Auto 0.5 10^3/uL (1.2-3.8); Lymphocytes Percent Auto 3.9 % (20.5-60.0); Mean Corpuscular HGB Conc 31.7 g/dL (29.9-35.2); Mean Corpuscular Hemoglobin 28.7 pg (25.9-34.0); Mean Corpuscular Volume 90.5 fL (80.0-94.0); Mean Platelet Volume 10.3 fL (9.5-13.5); Monocytes Absolute Auto 0.8 10^3/uL (0.3-0.8); Monocytes Percent Auto 6.6 % (1.7-12.0); Neutrophils Absolute Auto 10.7 10^3/uL (1.4-6.5); Neutrophils Percent Auto 87.3 % (43.0-75.0); Platelet Count 585 10^3/uL (150-450); Red Cell Distribution Width 14.7 % (11.0-15.0); White Blood Count 12.2 10^3/uL (4.0-11.0)
[2023-07-30 06:21] LABS: INR 0.99; Prothrombin Time 10.5 sec (9.0-11.6)
[2023-07-30] MEDS: VALPROIC ACID 250 MG/5 ML 125 MG G-TUBE (06:28)
[2023-07-30] MEDS: BACLOFEN 10 MG TABLET FEED TUBE (06:28)
[2023-07-30] MEDS: PROSTAT 15 GM PROTEIN/100 CAL 30 ML LIQUID PACKET G-TUBE (06:28)
[2023-07-30 06:34] LABS: Alanine Aminotransferase 31 U/L (16-63); Albumin Globulin Ratio 0.5; Albumin Level 2.5 g/dL (3.4-5.0); Alkaline Phosphatase 75 U/L (46-116); Anion Gap 8.3; Aspartate Amino Transferase 15 U/L (15-37); BUN Creatinine Ratio 31.4; Bilirubin Total 0.3 mg/dL (0.2-1.0); Calcium 9.8 mg/dL (8.5-10.1); Carbon Dioxide 30.5 mmol/L (21.0-32.0); Chloride 100 mmol/L (98-107); Estimated GFR (African America >60 (>=60); Estimated GFR (Non-African Ame >60 (>=60); Globulin 5.1 g/dL; Glucose 192 mg/dL (74-106); Potassium 3.8 mmol/L (3.5-5.1); Sodium 135 mmol/L (136-145); Total Protein 7.6 g/dL (6.4-8.2)
[2023-07-30] MEDS: GABAPENTIN 300 MG CAPSULE 600 MG PO (08:48)
[2023-07-30] MEDS: ASPIRIN 81 MG TAB.CHEW FEED TUBE (08:48)
--- NOTE | 2023-07-30 09:25 | P.DS_ITS ---
DS: Providers Provider Date of admission: 07/26/23 17:36 Primary care physician: ADELINA NIXON Consults: 07/26/23 Consult to Dietitian Routine Reason For Exam: Continuous TF Reason for consultation: PEG/Tube Feeding Has provider been notified: Yes DS: Diagnosis Discharge Diagnosis (1) Sepsis: (2) Aspiration pneumonia: Qualifiers: Aspiration pneumonia type: due to gastric secretions Laterality: unspecified laterality Lung location: unspecified part of lung Qualified Code(s): J69.0 - Pneumonitis due to inhalation of food and vomit (3) Acute respiratory failure with hypercapnia: (4) Acute hypoxic respiratory failure: (5) Acute dehydration: (6) COPD (chronic obstructive pulmonary disease): (7) Type 2 diabetes mellitus: (8) Hypertension: (9) Quadriplegia, post-traumatic: (10) Personal history of traumatic brain injury: Plan Metabolic acidosis, lactic acidosis, respiratory distress, hypotension, leukocytosis, thrombocythemia,Sepsis With acute hypoxic respiratory failure with hypercapnia secondary to aspiration pneumonia, complicated by acute exacerbation of COPD Acute dehydration Type 2 diabetes mellitus Hypertension Quadriplegia, post-traumatic Severe protein calorie malnutrition DS: Summary Hospital Course Hospital Course: Patient was admitted with acute exacerbation of COPD secondary to acute aspiration pneumonia resulting in severe sepsis. Treated with IV antibiotics, aerosols. Significant hypoxia initially but is back down to his baseline of 2 L currently. Pseudomonas is sensitive to Cipro so we will discharge patient back to his long term facility with Cipro, recommend high-dose secondary to the resistance pattern of the Cipro. Medications see list, follow-up PCP at care center Time Spent with Patient Time attestation: Total time spent providing and/or coordinating discharge services: Exam Constitutional Vital Signs, click to edit/add: Last Vital Signs Temp 99.0 F 07/30/23 07:23 Pulse 92 H 07/30/23 08:00 Resp 20 07/30/23 08:00 BP 155/91 H 07/30/23 04:00 Pulse Ox 97 07/30/23 08:00 O2 Del Method Nasal Cannula 07/30/23 06:21 O2 Flow Rate 2 07/30/23 06:21 FiO2 30 07/29/23 20:00 Documenting provider has reviewed patient's vital signs: yes General appearance: lethargic HENMT Common normals: normocephalic Eye Common normals: PERRL and EOMs intact bilaterally Respiratory Common normals: normal respiratory effort and clear to auscultation bilaterally Cardio Common normals: regular rate, regular rhythm, no gallops, no murmurs and no rub GI Common normals: Normal to inspection, nondistended, normoactive bowel sounds present and non-tender Extremity Common normals: no pedal edema DS: Data Data Completed and Pending Labs on day of discharge: Labs from last 24 hours 07/30/23 07/29/23 07/29/23 04:07 22:36 15:49 WBC 12.2 H RBC 3.80 L Hgb 10.9 L Hct 34.4 L MCV 90.5 MCH 28.7 MCHC 31.7 RDW 14.7 Plt Count 585 H MPV 10.3 Neut % (Auto) 87.3 H Lymph % (Auto) 3.9 L [place] % (Auto) 6.6 Eos % (Auto) 0.0 L Baso % (Auto) 0.2 Neut # (Auto) 10.7 H Lymph # (Auto) 0.5 L [place] # (Auto) 0.8 Eos # (Auto) 0.0 Baso # (Auto) 0.0 Abs Immat Gran (auto) 0.24 H Imm/Tot Granulo (auto) 2.0 H PT 10.5 INR 0.99 Sodium 135 L Potassium 3.8 Chloride 100 Carbon Dioxide 30.5 Anion Gap 8.3 BUN 22.0 H Creatinine 0.70 Est GFR ( Amer) >60 Est GFR (Non-Af Amer) >60 BUN/Creatinine Ratio 31.4 Glucose 192 H Calcium 9.8 Total Bilirubin 0.3 AST 15 ALT 31 Alkaline Phosphatase 75 Total Protein 7.6 Albumin 2.5 L Globulin 5.1 Albumin/Globulin Ratio 0.5 POC Glucose 207 H 196 H 07/29/23 11:12 WBC RBC Hgb Hct MCV MCH MCHC RDW Plt Count MPV Neut % (Auto) Lymph % (Auto) [place] % (Auto) Eos % (Auto) Baso % (Auto) Neut # (Auto) Lymph # (Auto) [place] # (Auto) Eos # (Auto) Baso # (Auto) Abs Immat Gran (auto) Imm/Tot Granulo (auto) PT INR Sodium Potassium Chloride Carbon Dioxide Anion Gap BUN Creatinine Est GFR ( Amer) Est GFR (Non-Af Amer) BUN/Creatinine Ratio Glucose Calcium Total Bilirubin AST ALT Alkaline Phosphatase Total Protein Albumin Globulin Albumin/Globulin Ratio POC Glucose 172 H Preliminary micro results at discharge 07/27/23 10:00 Sputum Culture - Preliminary Sputum - Expectorated Sputum Pseudomonas aeruginosa 07/26/23 15:50 - Preliminary Blood NO GROWTH AT 36-48 HOURS. FINAL TO FOLLOW. 07/26/23 15:50 Blood Culture Result 1 - Preliminary Blood NO GROWTH AT 36-48 HOURS. FINAL TO FOLLOW. Discharge Plan Discharge Disposition: Xfer SNF Condition: Serious Discharge Medications: New Pro-Stat Sugar Free 15 gram- 100 kcal/30 mL Liquid In Packet 1 ea G-tube TID Qty: 2880 11RF ciprofloxacin HCl [Cipro] 500 mg tablet 500 mg PO Q8H Qty: 30 0RF Continued clonidine HCl 0.1 mg tablet 0.1 mg feeding tube BID Rx Instructions: GTUBE baclofen 10 mg tablet 10 mg feeding tube TID Rx Instructions: GTUBE amlodipine 10 mg tablet 10 mg feeding tube DAILY Rx Instructions: G-TUBE acetaminophen [Acetaminophen Extra Strength] 1,000 mg PO .every 4 hours PRN (Reason: pain, severe) Rx Instructions: 1000mg every 4 hours as needed doxazosin 1 mg tablet 1 mg feeding tube .QHS albuterol sulfate 2.5 mg /3 mL (0.083 %) solution for nebulization 2.5 mg inhalation Q2H PRN (Reason: shortness of breath or wheezing) guaifenesin [Mucinex] 600 mg tablet extended release 12hr 600 mg PO Q12H PRN (Reason: congestion) Ensure Original 0.04-1.05 gram-kcal/mL Liquid 30 ea feeding tube CONT Rx Instructions: 70cc/hour cont feeds - 120ml/ free water flushes every 4hrs, check residual every 8hrs aspirin [[place] Aspirin] 81 mg tablet,chewable 81 mg feeding tube DAILY Rx Instructions: GTUBE valproic acid (as sodium salt) 250 mg/5 mL solution 125 mg feeding tube TID Rx Instructions: GTUBE quetiapine 25 mg Tablet 75 mg PO QHS Qty: 1 0RF gabapentin 300 mg Capsule 600 mg PO BID Qty: 1 0RF Discontinued doxycycline hyclate 100 mg tablet 100 mg PO BID 7 Days Qty: 14 0RF Patient Comments: FROM 07/25/23-07/30/23 Forms: Portal Instructions
[2023-07-30] MEDS: LACTATED RINGER'S SOLUTION 1,000 ML 75 ML IV (10:35)
[2023-07-30 12:30] LABS: Glucometer 216 mg/dL (74-106)
[2023-07-30] MEDS: INSULIN ASPART 300 UNIT/3 ML PEN SUBQ (12:30)
== END 2023-07-30 13:45 | DRG 871 ==
LOC: ER 15:57 → ICU 17:48
PROVIDERS: Family Medicine; Nurse Practitioner Acute Care; Admitting Provider Family Medicine; Emergency Provider Emergency Medicine; PCP Family Medicine; Visit Provider Family Medicine
DX: A41.9 Sepsis, unspecified organism (principal); E43 Unspecified severe protein-calorie malnutrition; G82.50 Quadriplegia, unspecified; J96.01 Acute respiratory failure with hypoxia; J96.02 Acute respiratory failure with hypercapnia; J69.0 Pneumonitis due to inhalation of food and vomit; I50.32 Chronic diastolic (congestive) heart failure; J44.1 Chronic obstructive pulmonary disease with (acute) exacerbation; J44.0 Chronic obstructive pulmonary disease with (acute) lower respiratory infection; I11.0 Hypertensive heart disease with heart failure; D69.6 Thrombocytopenia, unspecified; E86.0 Dehydration; Z66 Do not resuscitate; G40.909 Epilepsy, unspecified, not intractable, without status epilepticus; N40.0 Benign prostatic hyperplasia without lower urinary tract symptoms; F41.9 Anxiety disorder, unspecified; F03.90 Unspecified dementia, unspecified severity, without behavioral disturbance, psychotic disturbance, mood disturbance, and anxiety; E11.9 Type 2 diabetes mellitus without complications; Z93.1 Gastrostomy status; Z79.82 Long term (current) use of aspirin; Z79.899 Other long term (current) drug therapy; Z88.0 Allergy status to penicillin; Z88.6 Allergy status to analgesic agent; Z87.820 Personal history of traumatic brain injury; Z87.440 Personal history of urinary (tract) infections; Z87.01 Personal history of pneumonia (recurrent); Z68.20 Body mass index [BMI] 20.0-20.9, adult
CPT/HCPCS: 0202U; 31720; 36415; 36600; 51702; 70450; 71045; 71275; 80053; 80164; 81001; 82800; 82805; 82948; 83605; 83735; 83880; 84145; 84484; 85025; 85027; 85610; 85730; 87040; 87070; 87086; 87150; 87186; 87205; 87420; 87635; 87798; 87804; 87811; 89220; 93005; 94640; 94660; 94761; 94762; 94799; 96361; 96365; 96366; 96367; 96368; 96372; 96375; 96376; 99291; J0694; J1335; J1650; J2405; J2930; Q9967

== ENCOUNTER 2023-07-31 03:27 | Outpatient (REF) | payer MEDICARE, MEDICAID, SELFPAY ==
--- OUTSIDE RECORDS SUMMARY | 2023-07-31 03:31 | XMS_ITS | CCD ---
Author Name Unknown Address [address] [place] [address] Organization [facility] Care Team Providers Care Accounts Receivable Manager Name Role Phone REQUEST, NONE LISTED Primary Care Unavailable TD HURST Attending Unavailable TD HURST Consulting Unavailable TD HURST Admitting Unavailable [facility]il[facility], [facility] Provider [phone] [facility] Unavailable MELODIE NIXON Referring Unavailable [facility] Referring Unavailable GUILHERME, [facility] Primary Care Unavailable SCOUT HOLCOMB Referring Unavailable [facility] Primary Care Unavailable ULISES ., DR [...] Facility (2 sources) Propoxyphene Drug Allergy [facility] (1 source) Penicillins Drug allergy (disorder) 01-30-2014 [facility] Problems Active Problems Problem Classification [...] intermodal yard (current) drug therapy; 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 Comment on above: Performed By: #### V ITB1T #### [facility] [address] [place] [address] Dr. Brittanie Burns Basophils/100 WBC (Bld) 0.8 % Normal 0.2-2.[address] [facility] Comment on above: Performed By: #### V ITB1T #### [facility] [address] [place] [address] Dr. Brittanie Burns EO # 0.6 103/ul Normal 0.0-0.[address] [facility] Comment on above: Performed By: #### V ITB1T #### [facility] [address] [place] [address] Dr. Brittanie Burns Eosinophils/100 WBC (Bld) 6.6 % Normal 0.9-7.[address] [facility] Comment on above: Performed By: #### V ITB1T #### [facility] [address] [place] [address] Dr. Brittanie Burns Erythrocyte distribution width (RBC) [Ratio] 14.8 % Normal 11.0-15.[address] [facility] Comment on above: Performed By: #### V ITB1T #### [facility] [address] [place] [address] Dr. Brittanie Burns Hematocrit (Bld) [Volume fraction] 35.6 % Critically low 42.0-54.[address] [facility] Comment on above: Performed By: #### V ITB1T #### [facility] [address] [place] [address] Dr. Brittanie Burns Hemoglobin (Bld) [Mass/Vol] 11.7 g/dL Critically low 14.0-18.[address] [facility] Comment on above: Performed By: #### V ITB1T #### [facility] [address] [place] [address] Dr. Brittanie Burns IG # 0.04 10e3/ul Critically high 0.00-0.03 [facility] Comment on above: Performed By: #### V ITB1T #### [facility] [address] [place] [address] Dr. Brittanie Burns IG % 0.5 % Normal 0.0-0.[address] [facility] Comment on above: Performed By: #### V ITB1T #### [facility] [address] [place] [address] Dr. Brittanie Burns LYMPH # 2.0 103/ul Normal 1.2-3.8 [facility] Comment on above: Performed By: #### V ITB1T #### [facility] [address] [place] [address] Dr. Brittanie Burns Lymphocytes/100 WBC (Bld) 22.7 % Normal 20.5-60.[address] [facility] Comment on above: Performed By: #### V ITB1T #### [facility] [address] [place] [address] Dr. Brittanie Burns MANUAL DIFF REQ NO Normal [facility] Comment on above: Performed By: #### V ITB1T #### [facility] [address] [place] [address] Dr. Brittanie Burns MCH (RBC) [Entitic mass] 30.8 pg Normal 25.9-34.[address] [facility] Comment on above: Performed By: #### V ITB1T #### [facility] [address] [place] [address] Dr. Brittanie Burns MCHC (RBC) [Mass/Vol] 32.9 g/dL Normal 29.9-35.[address] [facility] Comment on above: Performed By: #### V ITB1T #### [facility] [address] [place] [address] Dr. Brittanie Burns MCV (RBC) [Entitic vol] 93.7 fL Normal 80.0-94.0 [facility] Comment on above: Performed By: #### V ITB1T #### [facility] [address] [place] [address] Dr. Brittanie Burns MONO # 1.1 103/ul Critically high 0.3-0.8 [facility] Comment on above: Performed By: #### V ITB1T #### [facility] [address] [place] [address] Dr. Brittanie Burns Monocytes/100 WBC (Bld) 12.7 % Critically high 1.7-12.[address] [facility] Comment on above: Performed By: #### V ITB1T #### [facility] [address] [address] [address] Brittanie Burns NEUT # 4.9 103/ul Normal 1.4-6.[address] [facility] Comment on above: Performed By: #### V ITB1T #### [facility] [address] [place] [address] Dr. Brittanie Burns Neutrophils/100 WBC (Bld) 56.7 % Normal 43.0-75.[address] [facility] Comment on above: Performed By: #### V ITB1T #### [facility] [address] [place] [address] Dr. Brittanie Burns Platelet mean volume (Bld) [Entitic vol] 9.2 fL Critically low 9.5-13.[address] [facility] Comment on above: Performed By: #### V ITB1T #### [facility] [address] [place] [address] Dr. Brittanie Burns PLT 343 103/ul Normal 150-[address] [facility] Comment on above: Performed By: #### V ITB1T #### [facility] [address] [place] [address] Dr. Brittanie Burns RBC 3.80 106/ul Critically low 4.70-6.10 [facility] Comment on above: Performed By: #### V ITB1T #### [facility] [address] [place] [address] Dr. Brittanie Burns WBC 8.7 103/ul Normal 4.0-11.[address] [facility] Comment on above: Performed By: #### V ITB1T #### [facility] [address] [place] [address] Dr. Brittanie Burns GLYCOHEMOGLOBIN A1Con 2022 ADA RECOMMENDATION SEE BELOW Normal [facility] Comment on above: Result Comment: ADA RECOMMENDED LIMIT 4.0 - 6.0 ADA THERAPEUTIC TARGET < 7.0 ACTION SUGGESTED > 7.0 Performed By: #### D RUGRPD #### [facility] [address] [place] [address] Dr. Brittanie Burns Glucose [Mass/Vol] 117 mg/dL Normal [facility] Comment on above: Performed By: #### D RUGRPD #### [facility] [address] [place] [address] Dr. Brittanie Burns HbA1c (Bld) [Mass fraction] 5.7 % Normal 4.5-6.[address] [facility] Comment on above: Performed By: #### D RUGRPD #### [facility] [address] [place] [address] Dr. Brittanie Burns PROF 14(COMP METB)on 023 Albumin [Mass/Vol] 2.8 g/dL Critically low 3.4-5.0 [facility] Comment on above: Performed By: #### C BC #### [facility] [address] [place] [address] Dr. Brittanie Burns Albumin/Globulin [Mass ratio] 0.6 {ratio} Normal [facility] Comment on above: Performed By: #### C BC #### [facility] [address] [place] [address] Dr. Brittanie Burns ALP [Catalytic activity/Vol] 68 U/L Normal 46-[address] [facility] Comment on above: Performed By: #### C BC #### [facility] [address] [place] [address] Dr. Brittanie Burns ALT [Catalytic activity/Vol] 18 U/L Normal 16-[address] [facility] Comment on above: Performed By: #### C BC #### [facility] [address] [place] [address] Dr. Brittanie Burns Anion gap [Moles/Vol] 11.4 mmol/L Normal [facility] Comment on above: Performed By: #### C BC #### [facility] [address] [place] [address] Dr. Brittanie Burns AST [Catalytic activity/Vol] 22 U/L Normal 15-[address] [facility] Comment on above: Performed By: #### C BC #### [facility] [address] [place] [address] Dr. Brittanie Burns Bilirubin [Mass/Vol] 0.3 mg/dL Normal 0.2-1.[address] [facility] Comment on above: Performed By: #### C BC #### [facility] [address] [address] [address] Brittanie Burns Calcium [Mass/Vol] 9.5 mg/dL Normal 8.5-10.1 [facility] Comment on above: Performed By: #### C BC #### [facility] [address] [address] [address] Brittanie Burns Chloride [Moles/Vol] 102 mmol/L Normal 98-[address] [facility] Comment on above: Performed By: #### C BC #### [facility] [address] [address] [address] Brittanie Burns CO2 [Moles/Vol] 31.3 mmol/L Normal 21.0-32.[address] [facility] Comment on above: Performed By: #### C BC #### [facility] [address] [place] [address] Dr. Brittanie Burns Creatinine [Mass/Vol] 1.18 mg/dL Normal 0.70-1.[address] [facility] Comment on above: Performed By: #### C BC #### [facility] [address] [place] [address] Dr. Brittanie Burns EGFR-AF YEMENI >60 Normal >=[address] [facility] Comment on above: Performed By: #### C BC #### [facility] [address] [place] [address] Dr. Brittanie Burns EGFR-NON AF YEMENI >60 Normal >=[address] [facility] Comment on above: Performed By: #### C BC #### [facility] [address] [place] [address] Dr. Brittanie Burns Globulin (S) [Mass/Vol] 4.9 g/dL Normal [facility] Comment on above: Performed By: #### C BC #### [facility] [address] [place] [address] Dr. Brittanie Burns Glucose [Mass/Vol] 133 mg/dL Critically high 74-106 [facility] Comment on above: Performed By: #### C BC #### [facility] [address] [place] [address] Dr. Brittanie Burns Potassium [Moles/Vol] 3.7 mmol/L Normal 3.5-5.[address] [facility] Comment on above: Performed By: #### C BC #### [facility] [address] [address] [address] Brittanie Burns Protein [Mass/Vol] 7.7 g/dL Normal 6.4-8.2 [facility] Comment on above: Performed By: #### C BC #### [facility] [address] [address] [address] Brittanie Burns Sodium [Moles/Vol] 141 mmol/L Normal 136-145 [facility] Comment on above: Performed By: #### C BC #### [facility] [address] [place] [address] Dr. Brittanie Burns Urea nitrogen [Mass/Vol] 25.0 mg/dL Critically high 7.0-18.[address] [facility] Comment on above: Performed By: #### C BC #### [facility] [address] [place] [address] Dr. Brittanie Burns Urea nitrogen/Creatinine [Mass ratio] 21.2 mg/mg Normal [facility] Comment on above: Performed By: #### C BC #### [facility] [address] [place] [address] Dr. Brittanie Burns TSHon 12-21-2022 TSH 2.348 uIU/mL Normal 0.358-3.740 [facility] Comment on above: Performed By: #### B 12FOL #### [facility] [address] [place] [address] Dr. Brittanie Burns VITAMIN D 25 OHon 12-21-2022 VIT D 25-OH 41.1 ng/mL Normal [facility] Comment on above: Performed By: #### B 12FOL #### [facility] [address] [place] [address] Dr. Brittanie Burns VIT D RANGES SEE BELOW Normal [facility] Comment on above: Result Comment: <20 ng/mL Vit D deficient 20 - <30 ng/mL Vit D insufficient 30 - 100 ng/mL Vit D sufficient >100 ng/mL Potential Toxicity Performed By: #### B 12FOL #### [facility] [address] [place] [address] Dr. Brittanie Burns PROF 14(COMP METB)on 023 Albumin [Mass/Vol] 2.7 g/dL Critically low 3.4-5.0 [facility] Comment on above: Performed By: #### C BC #### [facility] [address] [place] [address] Dr. Brittanie Burns Albumin/Globulin [Mass ratio] 0.6 {ratio} Normal [facility] Comment on above: Performed By: #### C BC #### [facility] [address] [place] [address] Dr. Brittanie Burns ALP [Catalytic activity/Vol] 68 U/L Normal 46-[address] [facility] Comment on above: Performed By: #### C BC #### [facility] [address] [place] [address] Dr. Brittanie Burns ALT [Catalytic activity/Vol] 27 U/L Normal 16-[address] [facility] Comment on above: Performed By: #### C BC #### [facility] [address] [place] [address] Dr. Brittanie Burns Anion gap [Moles/Vol] 12.3 mmol/L Normal [facility] Comment on above: Performed By: #### C BC #### [facility] [address] [place] [address] Dr. Brittanie Burns AST [Catalytic activity/Vol] 40 U/L Critically high 15-[address] [facility] Comment on above: Performed By: #### C BC #### [facility] [address] [place] [address] Dr. Brittnaie Burns Bilirubin [Mass/Vol] 0.2 mg/dL Normal 0.2-1.[address] [facility] Comment on above: Performed By: #### C BC #### [facility] [address] [place] [address] Dr. Brittanie Burns Calcium [Mass/Vol] 10.0 mg/dL Normal 8.5-10.1 [facility] Comment on above: Performed By: #### C BC #### [facility] [address] [address] [address] Brittanie Burns Chloride [Moles/Vol] 102 mmol/L Normal 98-[address] [facility] Comment on above: Performed By: #### C BC #### [facility] [address] [address] [address] Brittanie Burns CO2 [Moles/Vol] 32.2 mmol/L Critically high 21.0-32.[address] [facility] Comment on above: Performed By: #### C BC #### [facility] [address] [address] [address] Brittanie Burns Creatinine [Mass/Vol] 1.09 mg/dL Normal 0.70-1.[address] [facility] Comment on above: Performed By: #### C BC #### [facility] [address] [place] [address] Dr. Brittanie Burns EGFR-AF YEMENI >60 Normal >=[address] [facility] Comment on above: Performed By: #### C BC #### [facility] [address] [place] [address] Dr. Brittanie Burns EGFR-NON AF YEMENI >60 Normal >=[address] [facility] Comment on above: Performed By: #### C BC #### [facility] [address] [place] [address] Dr. Brittanie Burns Globulin (S) [Mass/Vol] 4.9 g/dL Normal [facility] Comment on above: Performed By: #### C BC #### [facility] [address] [place] [address] Dr. Brittanie Burns Glucose [Mass/Vol] 98 mg/dL Normal 74-106 [facility] Comment on above: Performed By: #### C BC #### [facility] [address] [place] [address] Dr. Brittanie Burns Potassium [Moles/Vol] 4.5 mmol/L Normal 3.5-5.[address] [facility] Comment on above: Performed By: #### C BC #### [facility] [address] [place] [address] Dr. Brittanie Burns Protein [Mass/Vol] 7.6 g/dL Normal 6.4-8.2 [facility] Comment on above: Performed By: #### C BC #### [facility] [address] [address] [address] Brittanie Burns Sodium [Moles/Vol] 142 mmol/L Normal 136-145 [facility] Comment on above: Performed By: #### C BC #### [facility] [address] [address] [address] Brittanie Burns Urea nitrogen [Mass/Vol] 26.0 mg/dL Critically high 7.0-18.[address] [facility] Comment on above: Performed By: #### C BC #### [facility] [address] [address] [address] Brittanie Burns Urea nitrogen/Creatinine [Mass ratio] 23.9 mg/mg Normal [facility] Comment on above: Performed By: #### C BC #### [facility] [address] [address] [address] Brittanie Burns SED RATE WE[facility]ER[facility] TUCSONRENon 2022 SED RATE 64 mm/hr Critically high <=20 [facility] Comment on above: Performed By: #### C BC #### [facility] [address] [address] [address] Brittanie Burns URIC ACID SERUMon 11-18-2022 Urate [Mass/Vol] 4.4 mg/dL Normal 3.5-7.[address] [facility] Comment on above: Performed By: #### C BC #### [facility] [address] [address] [address] Brittanie Burns Basic Metabolic Panelon 10-22 Anion gap [Moles/Vol] 7 mmol/L Low 9 - 17 mmol/L [facility] Calcium [Mass/Vol] 9.8 mg/dL 8.6 - 10. 4 mg/dL [facility] [place] Chloride [Moles/Vol] 99 mmol/L 98 - 10 7 mmol/L [facility] [place] CO2 [Moles/Vol] 31 mmol/L 20 - 31 mmol/L [facility] Creatinine [Mass/Vol] 1.36 mg/dL High 0.70 - 1.20 mg/dL [facility] GFR/1.73 sq M.predicted MDRD (S/P/Bld) [Vol rate/Area] 55 mL/min/{1.73_m2} Low - PINF [facility] Comment on above: These results are [...] 114 mg/dL High 70 - 99 mg/dL [facility] Interpretation and review of laboratory results Abnormal [facility] Potassium [Moles/Vol] 4.5 mmol/L 3.7 - 5.3 mmol/L [facility] Sodium [Moles/Vol] 137 mmol/L 135 - 144 mmol/L [facility] Urea nitrogen [Mass/Vol] 40 mg/dL High 8 - 23 mg/dL [facility] Urea nitrogen/Creatinine (Bld) [Mass ratio] 29 High 9 - 20 [facility] Basic Metabolic Profon 10-31 Anion gap [Moles/Vol] 7 mmol/L Low 9-17 [facility] Comment on above: Performed By: #### B MP #### [facility] [address] [place] [address] [employer] Adjuster: Oscar Watkins MD BUN/CRE Ratio 29 High 9-20 [facility] Comment on above: Performed By: #### B MP #### [facility] [address] [place] [address] [employer] Adjuster: Oscar Watkins MD Calcium [Mass/Vol] 9.8 mg/dL Normal 8.6-10.4 [facility] Comment on above: Performed By: #### B MP #### [facility] [address] [place] [address] [employer] Adjuster: Oscar Watkins MD Chloride [Moles/Vol] 99 mmol/L Normal 98-107 [facility] Comment on above: Performed By: #### B MP #### [facility] [address] [place] [address] [employer] Adjuster: Oscar Watkins MD CO2 [Moles/Vol] 31 mmol/L Normal 20-31 [facility] Comment on above: Performed By: #### B MP #### [facility] [address] [place] [address] [employer] Adjuster: Oscar Watkins MD Creatinine [Mass/Vol] 1.36 mg/dL High 0.70-1.20 [facility] Comment on above: Performed By: #### B MP #### [facility] [address] [place] [address] [employer] Adjuster: Oscar Watkins MD GFR/1.73 sq M.predicted among non-blacks MDRD (S/P/Bld) [Vol rate/Area] 55 mL/min/{1.73_m2} Low >60 [facility] Comment on above: Result Comment: These results [...] secretion. Performed By: #### B MP #### [facility] [address] [place] [address] [employer] Adjuster: Oscar Watkins MD Glucose [Mass/Vol] 114 mg/dL High 70-99 [facility] Comment on above: Performed By: #### B MP #### [facility] [address] [place] [id number] [employer] Adjuster: Oscar Watkins MD Potassium [Moles/Vol] 4.5 mmol/L Normal 3.7-5.3 [facility] Comment on above: Performed By: #### B MP #### [facility] [address] [place], [place] [phone] [employer] Adjuster: Oscar Watkins MD Sodium [Moles/Vol] 137 mmol/L Normal 135-144 [facility] Comment on above: Performed By: #### B MP #### [facility] [address] [place], [place] [id number] [employer] Adjuster: Oscar Watkins MD Urea nitrogen [Mass/Vol] 40 mg/dL High 8- [facility] Comment on above: Performed By: #### B MP #### [facility] [address] [place], [place] [phone] [employer] Adjuster: Oscar Watkins MD Lipid Panelon 10-26-2022 Cholesterol [Mass/Vol] 146 mg/dL NINF - 200 mg/dL [facility] Comment on above: Cholesterol Guidelines: <200 Desirable 200-240 Borderline >240 Undesirable Cholesterol in HDL [Mass/Vol] 24 mg/dL Low 40 - PINF mg/dL [facility] Comment on above: HDL Guidelines: <40 Undesirable 40-59 Borderline >59 Desirable Cholesterol in LDL [Mass/Vol] 97 mg/dL 0 - 130 mg/dL [facility] Comment on above: LDL Guidelines: <100 Desirable 100-129 Near to/above Desirable 130-159 Borderline >159 Undesirable Direct (measured) LDL and calculated LDL are not interchangeable tests. Cholesterol.total/Chol esterol in HDL [Mass ratio] 6.1 {ratio} High NINF - 5 [facility] Interpretation and review of laboratory results Abnormal [facility] Triglyceride [Mass/Vol] 123 mg/dL NINF - 150 mg/dL [facility] Comment on above: Triglyceride Guidelines: <150 Desirable 150-199 Borderline 200-499 High >499 Very high Based on AHA Guidelines for fasting triglyceride, April 2012. [facility] Lipid Profileon 10-26-2022 Cholesterol [Mass/Vol] 146 mg/dL Normal <200 [facility] Comment on above: Result Comment: Cholesterol Guidelines: <200 Desirable 200-240 Borderline >240 Undesirable Performed By: #### L IPR #### [facility] [place] [address] [employer] Adjuster: Moo Calero MD Cholesterol in HDL [Mass/Vol] 24 mg/dL Low >40 [facility] Comment on above: Result Comment: HDL Guidelines: <40 Undesirable 40-59 Borderline >59 Desirable Performed By: #### L IPR #### [facility] [address] [place] [address] [employer] Adjuster: Moo Calero MD Cholesterol in LDL [Mass/Vol] 97 mg/dL Normal 0-130 [facility] Comment on above: Result Comment: LDL Guidelines: <100 Desirable 100-129 Near to/above Desirable 130-159 Borderline >159 Undesirable Direct (measured) LDL and calculated LDL are not interchangeable tests. Performed By: #### L IPR #### [facility] [address] [place] [address] [employer] Adjuster: Moo Calero MD Cholesterol.total/Chol esterol in HDL [Mass ratio] 6.1 {ratio} High <5 [facility] Comment on above: Performed By: #### L IPR #### [facility] [address] [place] [address] [employer] Adjuster: Moo Calero MD Triglyceride [Mass/Vol] 123 mg/dL Normal <150 [facility] Comment on above: Result Comment: Triglyceride Guidelines: <150 Desirable 150-199 Borderline 200-499 High >499 Very high Based on AHA Guidelines for fasting triglyceride, April 2012. Performed By: #### L IPR #### [facility] [address] [place] [id number] [employer] Adjuster: Moo Calero MD Basic Metabolic Profon 10-24 Anion gap [Moles/Vol] 13 mmol/L Normal 9-17 [facility] Comment on above: Performed By: #### B MP #### [facility] [address] [place], [place] [phone] [employer] Adjuster: Oscar Watkins MD BUN/CRE Ratio 21 High 9-20 [facility] Comment on above: Performed By: #### B MP #### [facility] [address] [place] [id number] [employer] Adjuster: Oscar Watkins MD Calcium [Mass/Vol] 9.8 mg/dL Normal 8.6-10.4 [facility] Comment on above: Performed By: #### B MP #### [facility] [address] [place] [id number] [employer] Adjuster: Oscar Watkins MD Chloride [Moles/Vol] 109 mmol/L High 98-107 [facility] Comment on above: Performed By: #### B MP #### [facility] [address] [place], [place] [id number] [employer] Adjuster: Oscar Watkins MD CO2 [Moles/Vol] 27 mmol/L Normal 20-31 [facility] Comment on above: Performed By: #### B MP #### [facility] [address] [place], [place] [id number] [employer] Adjuster: Oscar Watkins MD Creatinine [Mass/Vol] 1.68 mg/dL High 0.70-1.20 [facility] Comment on above: Performed By: #### B MP #### [facility] [address] [place], [place] [id number] [employer] Adjuster: Oscar Watkins MD GFR/1.73 sq M.predicted among non-blacks MDRD (S/P/Bld) [Vol rate/Area] 43 mL/min/{1.73_m2} Low >60 [facility] Comment on above: Result Comment: These results [...] secretion. Performed By: #### B MP #### [facility] [address] [place], [place] [id number] [employer] Adjuster: Oscar Watkins MD Glucose [Mass/Vol] 106 mg/dL High 70-99 [facility] Comment on above: Performed By: #### B MP #### [facility] [address] [place], [place] [id number] [employer] Adjuster: Oscar Watkins MD Potassium [Moles/Vol] 3.6 mmol/L Low 3.7-5.3 [facility] Comment on above: Performed By: #### B MP #### [address] [place], [place] [id number] [employer] Adjuster: Oscar Watkins MD Sodium [Moles/Vol] 149 mmol/L High 135-144 [facility] Comment on above: Performed By: #### B MP #### [address] [place], [place] [id number] [employer] Adjuster: Oscar Watkins MD Urea nitrogen [Mass/Vol] 35 mg/dL High 8-23 [facility] Comment on above: Performed By: #### B MP #### [facility] [address] [place] [address] [place] [place], [place] [id number] [employer] Adjuster: Oscar Watkins MD CBC AUTO DIFFon 10-21-2022 BASO # 0.1 103/ul Normal 0.0-0.[address] [facility] Comment on above: Performed By: #### C BC #### [facility] [address] [place], [place] [address] Dr. Brittanie Burns Basophils/100 WBC (Bld) 0.6 % Normal 0.2-2.[address] [facility] Comment on above: Performed By: #### C BC #### [facility] [address] [place] [address] Dr. Brittanie Burns EO # 0.4 103/ul Normal 0.0-0.7 [facility] Comment on above: Performed By: #### C BC #### [facility] [address] [place] [address] Dr. Brittanie Burns Eosinophils/100 WBC (Bld) 3.9 % Normal 0.9-7.0 [facility] Comment on above: Performed By: #### C BC #### [facility] [address] [place] [address] Dr. Brittanie Burns Erythrocyte distribution width (RBC) [Ratio] 13.5 % Normal 11.0-15.[address] [facility] Comment on above: Performed By: #### C BC #### [facility] [address] [place] [address] Dr. Brittanie Burns Hematocrit (Bld) [Volume fraction] 38.1 % Critically low 42.0-54.[address] [facility] Comment on above: Performed By: #### C BC #### [facility] [address] [place] [address] Dr. Brittanie Burns Hemoglobin (Bld) [Mass/Vol] 13.2 g/dL Critically low 14.0-18.[address] [facility] Comment on above: Performed By: #### C BC #### [facility] [address] [place] [address] Dr. Brittanie Burns IG # 0.02 10e3/ul Normal 0.00-0.03 [facility] Comment on above: Performed By: #### C BC #### [facility] [address] [place] [address] Dr. Brittanie Burns IG % 0.2 % Normal 0.0-0.5 [facility] Comment on above: Performed By: #### C BC #### [facility] [address] [place] [address] Dr. Brittanie Burns LYMPH # 2.2 103/ul Normal 1.2-3.8 [facility] Comment on above: Performed By: #### C BC #### [facility] [address] [place] [address] Dr. Brittanie Burns Lymphocytes/100 WBC (Bld) 23.4 % Normal 20.5-60.0 [facility] Comment on above: Performed By: #### C BC #### [facility] [address] [place] [address] Dr. Brittanie Burns MANUAL DIFF REQ NO Normal [facility] Comment on above: Performed By: #### C BC #### [facility] [address] [place] [address] Dr. Brittanie Burns MCH (RBC) [Entitic mass] 30.6 pg Normal 25.9-34.0 [facility] Comment on above: Performed By: #### C BC #### [facility] [address] [place] [address] Dr. Brittanie Burns MCHC (RBC) [Mass/Vol] 34.6 g/dL Normal 29.9-35.2 [facility] Comment on above: Performed By: #### C BC #### [facility] [address] [place] [address] Dr. Brittanie Burns MCV (RBC) [Entitic vol] 88.2 fL Normal 80.0-94.0 [facility] Comment on above: Performed By: #### C BC #### [facility] [address] [place] [address] Dr. Brittanie Burns MONO # 1.3 103/ul Critically high 0.3-0.8 [facility] Comment on above: Performed By: #### C BC #### [facility] [address] [place] [address] Dr. Brittanie Burns Monocytes/100 WBC (Bld) 13.5 % Critically high 1.7-12.0 [facility] Comment on above: Performed By: #### C BC #### [facility] [address] [place] [address] Dr. Brittanie Burns NEUT # 5.6 103/ul Normal 1.4-6.5 [facility] Comment on above: Performed By: #### C BC #### [facility] [address] [place] [address] [address] Brittanie Burns Neutrophils/100 WBC (Bld) 58.4 % Normal 43.0-75.[address] [facility] Comment on above: Performed By: #### C BC #### [facility] [address] [place] [address] [address] Brittanie Burns Platelet mean volume (Bld) [Entitic vol] 9.3 fL Critically low 9.5-13.[address] [facility] Comment on above: Performed By: #### C BC #### [facility] [address] [address] [address] Brittanie Burns PLT 297 103/ul Normal 150-[address] [facility] Comment on above: Performed By: #### C BC #### [facility] [address] [address] [address] Brittanie Burns RBC 4.32 106/ul Critically low 4.70-6.10 [facility] Comment on above: Performed By: #### C BC #### [facility] [address] [address] [address] Brittanie Burns WBC 9.6 103/ul Normal 4.0-11.0 [facility] Comment on above: Performed By: #### C BC #### [facility] [address] [address] [address] Brittanie Burns CULTURE BLOODon 10-21-2022 Microscopic [...] F Trimethoprim/Sulfame thoxazole 40 S F Normal [facility] Comment on above: Performed By: #### B LDCX2 #### [facility] [address] [place] [address] Dr. Brittanie Burns PROF 14(COMP METB)on 023 Albumin [Mass/Vol] 3.1 g/dL Critically low 3.4-5.0 [facility] Comment on above: Performed By: #### D RUGRPD #### [facility] [address] [place] [address] Dr. Brittanie Burns Albumin/Globulin [Mass ratio] 0.8 {ratio} Normal [facility] Comment on above: Performed By: #### D RUGRPD #### [facility] [address] [place] [address] Dr. Brittanie uBrns ALP [Catalytic activity/Vol] 76 U/L Normal 46-[address] [facility] Comment on above: Performed By: #### D RUGRPD #### [facility] [address] [place] [address] Dr. Brittanie Burns ALT [Catalytic activity/Vol] 16 U/L Normal 16-[address] [facility] Comment on above: Performed By: #### D RUGRPD #### [facility] [address] [place] [address] Dr. Brittanie Burns Anion gap [Moles/Vol] 13.5 mmol/L Normal Th [facility] Comment on above: Performed By: #### D RUGRPD #### [facility] [address] [place] [address] Dr. Brittanie Burns AST [Catalytic activity/Vol] 14 U/L Critically low 15-[address] [facility] Comment on above: Performed By: #### D RUGRPD #### [facility] [address] [place] [address] Dr. Brittanie Burns Bilirubin [Mass/Vol] 0.6 mg/dL Normal 0.2-1.[address] [facility] Comment on above: Performed By: #### D RUGRPD #### [facility] [address] [place] [address] Dr. Brtitanie Burns Calcium [Mass/Vol] 8.9 mg/dL Normal 8.5-10.1 [facility] Comment on above: Performed By: #### D RUGRPD #### [facility] [address] [address] [address] Brittanie Burns Chloride [Moles/Vol] 107 mmol/L Normal 98-107 [facility] Comment on above: Performed By: #### D RUGRPD #### [facility] [address] [address] [address] Brittanie Burns CO2 [Moles/Vol] 26.9 mmol/L Normal 21.0-32.[address] [facility] Comment on above: Performed By: #### D RUGRPD #### [facility] [address] [place] [address] Dr. Brittanie Burns Creatinine [Mass/Vol] 2.02 mg/dL Critically high 0.70-1.[address] [facility] Comment on above: Performed By: #### D RUGRPD #### [facility] [address] [place] [address] Dr. Brittanie Burns EGFR-AF YEMENI 40 mL/min/1.73m2 Critically low >=[address] [facility] Comment on above: Performed By: #### D RUGRPD #### [facility] [address] [place] [address] Dr. Brittanie Burns EGFR-NON AF YEMENI 33 mL/min/1.73m2 Critically low >=60 [facility] Comment on above: Performed By: #### D RUGRPD #### [facility] [address] [place] [address] Dr. Brittanie Burns Globulin (S) [Mass/Vol] 3.7 g/dL Normal [facility] Comment on above: Performed By: #### D RUGRPD #### [facility] [address] [place] [address] Dr. Brittanie Burns Glucose [Mass/Vol] 95 mg/dL Normal 74-106 [facility] Comment on above: Performed By: #### D RUGRPD #### [facility] [address] [address] [address] Brittanie Burns Potassium [Moles/Vol] 3.4 mmol/L Critically low 3.5-5.[address] [facility] Comment on above: Performed By: #### D RUGRPD #### [facility] [address] [place] [address] Dr. Brittanie Burns Protein [Mass/Vol] 6.8 g/dL Normal 6.4-8.2 [facility] Comment on above: Performed By: #### D RUGRPD #### [facility] [address] [place] [address] Dr. Brittanie Burns Sodium [Moles/Vol] 144 mmol/L Normal 136-145 [facility] Comment on above: Performed By: #### D RUGRPD #### [facility] [address] [place] [address] Dr. Brittanie Burns Urea nitrogen [Mass/Vol] 25.0 mg/dL Critically high 7.0-18.[address] [facility] Comment on above: Performed By: #### D RUGRPD #### [facility] [address] [place] [address] Dr. Brittanie Burns Urea nitrogen/Creatinine [Mass ratio] 12.4 mg/mg Normal [facility] Comment on above: Performed By: #### D RUGRPD #### [facility] [address] [place] [address] Dr. Brittanie Burns CBC AUTO DIFFon 10-20-2022 BASO # 0.1 103/ul Normal 0.0-0.[address] [facility] Comment on above: Performed By: #### D RUGRPD #### [facility] [address] [place] [address] Dr. Brittanie Burns Basophils/100 WBC (Bld) 0.7 % Normal 0.2-2.[address] [facility] Comment on above: Performed By: #### D RUGRPD #### [facility] [address] [place] [address] Dr. Brittanie Burns EO # 0.3 103/ul Normal 0.0-0.7 [facility] Comment on above: Performed By: #### D RUGRPD #### [facility] [address] [place] [address] [address] Brittanie Burns Eosinophils/100 WBC (Bld) 2.7 % Normal 0.9-7.[address] [facility] Comment on above: Performed By: #### D RUGRPD #### [facility] [address] [place] [address] Dr. Brittanie Burns Erythrocyte distribution width (RBC) [Ratio] 13.4 % Normal 11.0-15.[address] [facility] Comment on above: Performed By: #### D RUGRPD #### [facility] [address] [place] [address] Dr. Brittanie Burns Hematocrit (Bld) [Volume fraction] 39.2 % Critically low 42.0-54.[address] [facility] Comment on above: Performed By: #### D RUGRPD #### [facility] [address] [place] [address] Dr. Brittanie Burns Hemoglobin (Bld) [Mass/Vol] 13.7 g/dL Critically low 14.0-18.[address] [facility] Comment on above: Performed By: #### D RUGRPD #### [facility] [address] [place] [address] Dr. Brittanie Burns IG # 0.04 10e3/ul Critically high 0.00-0.03 [facility] Comment on above: Performed By: #### D RUGRPD #### [facility] [address] [place] [address] Dr. Brittanie Burns IG % 0.4 % Normal 0.0-0.5 [facility] Comment on above: Performed By: #### D RUGRPD #### [facility] [address] [place] [address] Dr. Brittanie Burns LYMPH # 2.0 103/ul Normal 1.2-3.8 [facility] Comment on above: Performed By: #### D RUGRPD #### [facility] [address] [place] [address] Dr. Brittanie Burns Lymphocytes/100 WBC (Bld) 19.9 % Critically low 20.5-60.[address] [facility] Comment on above: Performed By: #### D RUGRPD #### [facility] [address] [place] [address] Dr. Brittanie Burns MANUAL DIFF REQ NO Normal [facility] Comment on above: Performed By: #### D RUGRPD #### [facility] [address] [place] [address] Dr. Brittanie Burns MCH (RBC) [Entitic mass] 30.7 pg Normal 25.9-34.[address] [facility] Comment on above: Performed By: #### D RUGRPD #### [facility] [address] [place] [address] Dr. Brittanie Burns MCHC (RBC) [Mass/Vol] 34.9 g/dL Normal 29.9-35.[address] [facility] Comment on above: Performed By: #### D RUGRPD #### [facility] [address] [place] [address] Dr. Brittanie Burns MCV (RBC) [Entitic vol] 87.9 fL Normal 80.0-94.[address] [facility] Comment on above: Performed By: #### D RUGRPD #### [facility] [address] [place] [address] Dr. Brittanie Burns MONO # 1.5 103/ul Critically high 0.3-0.8 [facility] Comment on above: Performed By: #### D RUGRPD #### [facility] [address] [place] [address] Dr. Brittanie Burns Monocytes/100 WBC (Bld) 14.4 % Critically high 1.7-12.[address] [facility] Comment on above: Performed By: #### D RUGRPD #### [facility] [address] [place] [address] Dr. Brittanie Burns NEUT # 6.3 103/ul Normal 1.4-6.5 [facility] Comment on above: Performed By: #### D RUGRPD #### [facility] [address] [place] [address] Dr. Brittanie Burns Neutrophils/100 WBC (Bld) 61.9 % Normal 43.0-75.[address] [facility] Comment on above: Performed By: #### D RUGRPD #### [facility] [address] [place] [address] Dr. Brittanie Burns Platelet mean volume (Bld) [Entitic vol] 10.0 fL Normal 9.5-13.[address] [facility] Comment on above: Performed By: #### D RUGRPD #### [facility] [address] [place] [address] Dr. Brittanie Burns PLT 305 103/ul Normal 150-[address] [facility] Comment on above: Performed By: #### D RUGRPD #### [facility] [address] [place] [address] Dr. Brittanie Burns RBC 4.46 106/ul Critically low 4.70-6.10 [facility] Comment on above: Performed By: #### D RUGRPD #### [facility] [address] [place] [address] Dr. Brittanie Burns WBC 10.2 103/ul Normal 4.0-11.[address] [facility] Comment on above: Performed By: #### D RUGRPD #### [facility] [address] [place] [address] Dr. Brittanie Burns PROF 14(COMP METB)on 023 Albumin [Mass/Vol] 3.4 g/dL Normal 3.4-5.0 [facility] Comment on above: Performed By: #### L YMA #### [facility] [address] [place] [address] Dr. Brittanie Burns Albumin/Globulin [Mass ratio] 0.8 {ratio} Normal [facility] Comment on above: Performed By: #### L YMA #### [facility] [address] [place] [address] Dr. Brittanie Burns ALP [Catalytic activity/Vol] 83 U/L Normal 46-[address] [facility] Comment on above: Performed By: #### L YMA #### [facility] [address] [place] [address] Dr. Brittanie Burns ALT [Catalytic activity/Vol] 14 U/L Critically low 16-[address] [facility] Comment on above: Performed By: #### L YMA #### [facility] [address] [place] [address] Dr. Brittanie Burns Anion gap [Moles/Vol] 16.0 mmol/L Normal [facility] Comment on above: Performed By: #### L YMA #### [facility] [address] [address] [address] Brittanie Burns AST [Catalytic activity/Vol] 14 U/L Critically low 15-[address] [facility] Comment on above: Performed By: #### L YMA #### [facility] [address] [place] [address] Dr. Brittanie Burns Bilirubin [Mass/Vol] 0.5 mg/dL Normal 0.2-1.[address] [facility] Comment on above: Performed By: #### L YMA #### [facility] [address] [place] [address] Dr. Brittanie Burns Calcium [Mass/Vol] 9.0 mg/dL Normal 8.5-10.1 [facility] Comment on above: Performed By: #### L YMA #### [facility] [address] [place] [address] Dr. Brittanie Burns Chloride [Moles/Vol] 103 mmol/L Normal 98-[address] [facility] Comment on above: Performed By: #### L YMA #### [facility] [address] [place] [address] Dr. Brittanie Burns CO2 [Moles/Vol] 24.5 mmol/L Normal 21.0-32.[address] [facility] Comment on above: Performed By: #### L YMA #### [facility] [address] [place] [address] Dr. Brittanie Burns Creatinine [Mass/Vol] 2.67 mg/dL Critically high 0.70-1.[address] [facility] Comment on above: Performed By: #### L YMA #### [facility] [address] [place] [address] Dr. Brittanie Burns EGFR-AF YEMENI 29 mL/min/1.73m2 Critically low >=[address] [facility] Comment on above: Performed By: #### L YMA #### [facility] [address] [address] [address] Brittanie Burns EGFR-NON AF YEMENI 24 mL/min/1.73m2 Critically low >=[address] [facility] Comment on above: Performed By: #### L YMA #### [facility] [address] [address] [address] Brittanie Burns Globulin (S) [Mass/Vol] 4.2 g/dL Normal [facility] Comment on above: Performed By: #### L YMA #### [facility] [address] [address] [address] Brittanie Burns Glucose [Mass/Vol] 131 mg/dL Critically high 74-106 [facility] Comment on above: Performed By: #### L YMA #### [facility] [address] [address] [address] Brittanie Burns Potassium [Moles/Vol] 3.5 mmol/L Normal 3.5-5.[address] [facility] Comment on above: Performed By: #### L YMA #### [facility] [address] [place] [address] Dr. Brittanie Burns Protein [Mass/Vol] 7.6 g/dL Normal 6.4-8.2 [facility] Comment on above: Performed By: #### L YMA #### [facility] [address] [address] [address] Brittanie Burns Sodium [Moles/Vol] 140 mmol/L Normal 136-145 [facility] Comment on above: Performed By: #### L YMA #### [facility] [address] [address] [address] Brittanie Burns Urea nitrogen [Mass/Vol] 33.0 mg/dL Critically high 7.0-18.[address] [facility] Comment on above: Performed By: #### L YMA #### [facility] [address] [address] [address] Brittanie Burns Urea nitrogen/Creatinine [Mass ratio] 12.4 mg/mg Normal [facility] Comment on above: Performed By: #### L YMA #### [facility] [address] [place] [address] Dr. Brittanie Burns VITAMIN B1 (THIAMINE)on 09-23 Vit. B1, Whole Blood 133.7 nmol/L Normal 66.5-200.0 [facility] Comment on above: Performed By: #### V ITB1T #### [facility] [address] [place] [address] Dr. Brittanie Burns CBC W MANUAL DIFFon 10-20-19 23 ATYPICAL LYMPH # Normal [facility] Comment on above: Performed By: #### C BC #### [facility] [address] [place] [address] Dr. Brittanie Burns ATYPICAL LYMPH % Normal [facility] Comment on above: Performed By: #### C BC #### [facility] [address] [place] [address] Dr. Brittanie Burns BAND # Normal 0.0-0.[address] [facility] Comment on above: Performed By: #### C BC #### [facility] [address] [place] [address] Dr. Brittanie HUGGINS % Normal 0-[address] [facility] Comment on above: Performed By: #### C BC #### [facility] [address] [place] [address] Dr. Brittanie Burns BASOM # 0.34 103/ul Critically high 0.00-0.[address] [facility] Comment on above: Performed By: #### C BC #### [facility] [address] [place] [address] Dr. Brittanie Burns BASOM % 3.0 % Critically high 0.2-2.0 [facility] Comment on above: Performed By: #### C BC #### [facility] [address] [place] [address] Dr. Brittanie Burns BLAST # Normal [facility] Comment on above: Performed By: #### C BC #### [facility] [address] [place] [address] Dr. Brittanie Burns BLAST % Normal [facility] Comment on above: Performed By: #### C BC #### [facility] [address] [place] [address] Dr. Brittanie Burns CORRECTED WBC Normal 4.0-11.0 [facility] Comment on above: Performed By: #### C BC #### [facility] [address] [address] [address] Brittanie Burns EOS # 0.22 103/ul Normal 0.00-0.[address] [facility] Comment on above: Performed By: #### C BC #### [facility] [address] [place] [address] Dr. Brittanie Burns EOS% 2.0 % Normal 0.9-7.[address] [facility] Comment on above: Performed By: #### C BC #### [facility] [address] [place] [address] Dr. Brittanie Burns HCT 35.2 % Critically low 42.0-54.0 [facility] Comment on above: Performed By: #### C BC #### [facility] [address] [place] [address] Dr. Brittanie Burns HGB 12.2 g/dl Critically low 14.0-18.0 [facility] Comment on above: Performed By: #### C BC #### [facility] [address] [place] [address] Dr. Brittanie Burns LYMPHM # 1.90 103/ul Normal 1.20-3.[address] [facility] Comment on above: Performed By: #### C BC #### [facility] [address] [place] [address] Dr. Brittanie Burns LYMPHM% 17.0 % Critically low 20.5-60.0 [facility] Comment on above: Performed By: #### C BC #### [facility] [address] [place] [address] Dr. Brittanie Burns MCH 30.7 pg Normal 25.9-34.[address] [facility] Comment on above: Performed By: #### C BC #### [facility] [address] [place] [address] Dr. Brittanie Burns MCHC 34.7 g/dl Normal 29.9-35.[address] [facility] Comment on above: Performed By: #### C BC #### [facility] [address] [place] [address] Dr. Brittanie Burns MCV 88.4 fL Normal 80.0-94.[address] [facility] Comment on above: Performed By: #### C BC #### [facility] [address] [place] [address] Dr. Brittanie Burns METAMYELOCYTE # Normal [facility] Comment on above: Performed By: #### C BC #### [facility] [address] [place] [address] Dr. Brittanie Burns METAMYELOCYTE % Normal [facility] Comment on above: Performed By: #### C BC #### [facility] [address] [place] [address] Dr. Brittanie Burns MONOM# 0.67 103/ul Normal 0.30-0.[address] [facility] Comment on above: Performed By: #### C BC #### [facility] [address] [place] [address] Dr. Brittanie Burns MONOM% 6.0 % Normal 1.7-12.[address] [facility] Comment on above: Performed By: #### C BC #### [facility] [address] [place] [address] Dr. Brittanie Burns MPV 9.9 fL Normal 9.5-13.[address] [facility] Comment on above: Performed By: #### C BC #### [facility] [address] [place] [address] Dr. Brittanie Burns MYELOCYTE # Normal [facility] Comment on above: Performed By: #### C BC #### [facility] [address] [place] [address] Dr. Brittanie Burns MYELOCYTE % Normal [facility] Comment on above: Performed By: #### C BC #### [facility] [address] [place] [address] Dr. Brittanie Burns NRBC Normal [facility] Comment on above: Performed By: #### C BC #### [facility] [address] [address] [address] Brittanie Burns PLT 267 103/ul Normal 150-[address] [facility] Comment on above: Performed By: #### C BC #### [facility] [address] [place] [address] Dr. Brittanie Burns RBC 3.98 106/ul Critically low 4.70-6.10 [facility] Comment on above: Performed By: #### C BC #### [facility] [address] [place] [address] Dr. Brittanie Burns RDW 13.4 % Normal 11.0-15.[address] [facility] Comment on above: Performed By: #### C BC #### [facility] [address] [place] [address] Dr. Brittanie Burns SEG # 8.06 103/ul Critically high 1.40-6.[address] [facility] Comment on above: Performed By: #### C BC #### [facility] [address] [place] [address] Dr. Brittanie Burns SEG % 72.0 % Normal 43.0-75.[address] [facility] Comment on above: Performed By: #### C BC #### [facility] [address] [place] [address] Dr. Brittanie Burns WBC 11.2 103/ul Critically high 4.0-11.[address] [facility] Comment on above: Performed By: #### C BC #### [facility] [address] [place] [address] Dr. Brittanie Burns CULTURE BLOODon 10-19-2022 Microscopic examination of blood, culture Culture Observations: NO GROWTH AT 5 DAYS. Normal [facility] Comment on above: Performed By: #### B [id number] #### [facility] [address] [place] [address] Dr. Brittanie Burns ECHOCARDIO M/2D COMPLETEon 0 10-19-2022 ECHOCARDIO M/2D COMPLETE Patient: SHELBY VALERIO Matt Exam Date: 10/19/2022 : 1950 Gender:M Ordering : SHAIKH Manav SALINAS . Admission #: [id number] Family : Order #: [id number] CLICK HERE TO VIEW EXAM ECHOCARDIOGRAM REPORT [...] Left Atrium LA Volume Index (2D A2C): 41046 mm3 Left Atrium Systolic Dimension: 2.20 cm [...] Pedroza M.D. on 10/19/2022 at 14:[address] [facility] PROF 14(COMP METB)on 023 Albumin [Mass/Vol] 2.8 g/dL Critically low 3.4-5.0 [facility] Comment on above: Performed By: #### L YMA #### [facility] [address] [place] [address] Dr. Brittanie Burns Albumin/Globulin [Mass ratio] 0.8 {ratio} Normal [facility] Comment on above: Performed By: #### L YMA #### [facility] [address] [place] [address] Dr. Brittanie Burns ALP [Catalytic activity/Vol] 72 U/L Normal 46-[address] [facility] Comment on above: Performed By: #### L YMA #### [facility] [address] [place] [address] Dr. Brittanie Burns ALT [Catalytic activity/Vol] 12 U/L Critically low 16-[address] [facility] Comment on above: Performed By: #### L YMA #### [facility] [address] [place] [address] Dr. Brittanie Burns Anion gap [Moles/Vol] 15.7 mmol/L Normal [facility] Comment on above: Performed By: #### L YMA #### [facility] [address] [place] [address] Dr. Brittanie Burns AST [Catalytic activity/Vol] 12 U/L Critically low 15-[address] [facility] Comment on above: Performed By: #### L YMA #### [facility] [address] [place] [address] Dr. Brittanie Burns Bilirubin [Mass/Vol] 0.5 mg/dL Normal 0.2-1.[address] [facility] Comment on above: Performed By: #### L YMA #### [facility] [address] [address] [address] Brittanie Burns Calcium [Mass/Vol] 8.7 mg/dL Normal 8.5-10.1 [facility] Comment on above: Performed By: #### L YMA #### [facility] [address] [address] [address] Brittanie Burns Chloride [Moles/Vol] 107 mmol/L Normal 98-[address] [facility] Comment on above: Performed By: #### L YMA #### [facility] [address] [address] [address] Brittanie Burns CO2 [Moles/Vol] 23.0 mmol/L Normal 21.0-32.[address] [facility] Comment on above: Performed By: #### L YMA #### [facility] [address] [address] [address] Brittanie Burns Creatinine [Mass/Vol] 3.79 mg/dL Critically high 0.70-1.[address] [facility] Comment on above: Performed By: #### L YMA #### [facility] [address] [place] [address] Dr. Brittanie Burns EGFR-AF YEMENI 19 mL/min/1.73m2 Critically low >=[address] [facility] Comment on above: Performed By: #### L YMA #### [facility] [address] [address] [address] Brittanie Burns EGFR-NON AF YEMENI 16 mL/min/1.73m2 Critically low >=[address] [facility] Comment on above: Performed By: #### L YMA #### [facility] [address] [address] [address] Brittanie Burns Globulin (S) [Mass/Vol] 3.5 g/dL Normal [facility] Comment on above: Performed By: #### L YMA #### [facility] [address] [address] [address] Brittanie Burns Glucose [Mass/Vol] 75 mg/dL Normal 74-106 [facility] Comment on above: Performed By: #### L YMA #### [facility] [address] [address] [address] Brittanie Burns Potassium [Moles/Vol] 3.7 mmol/L Normal 3.5-5.[address] [facility] Comment on above: Performed By: #### L YMA #### [facility] [address] [address] [address] Brittanie Burns Protein [Mass/Vol] 6.3 g/dL Critically low 6.4-8.2 [facility] Comment on above: Performed By: #### L YMA #### [facility] [address] [place] [address] Dr. Brittanie Burns Sodium [Moles/Vol] 142 mmol/L Normal 136-145 [facility] Comment on above: Performed By: #### L YMA #### [facility] [address] [place] [address] Dr. Brittanie Burns Urea nitrogen [Mass/Vol] 40.0 mg/dL Critically high 7.0-18.[address] [facility] Comment on above: Performed By: #### L YMA #### [facility] [address] [place] [address] Dr. Brittanie Burns Urea nitrogen/Creatinine [Mass ratio] 10.6 mg/mg Normal [facility] Comment on above: Performed By: #### L YMA #### [facility] [address] [place] [address] Dr. Brittanie Burns VANCOMYCIN TROUGHon 10-20-19 VANCOMYCIN TROUGH 7.0 ug/ml Normal 5.0-20.0 [facility] Comment on above: Performed By: #### B [id number] #### [facility] [address] [place] [address] Dr. Brittanie Burns CBC AUTO DIFFon 10-18-2022 BASO # 0.1 103/ul Normal 0.0-0.[address] [facility] Comment on above: Performed By: #### C BC #### [facility] [address] [address] [address] Brittanie Burns Basophils/100 WBC (Bld) 0.6 % Normal 0.2-2.[address] [facility] Comment on above: Performed By: #### C BC #### [facility] [address] [place] [address] Dr. Brittanie Burns EO # 0.1 103/ul Normal 0.0-0.[address] [facility] Comment on above: Performed By: #### C BC #### [facility] [address] [place] [address] Dr. Brittanie Burns Eosinophils/100 WBC (Bld) 1.0 % Normal 0.9-7.[address] [facility] Comment on above: Performed By: #### C BC #### [facility] [address] [place] [address] Dr. Brittanie Burns Erythrocyte distribution width (RBC) [Ratio] 13.7 % Normal 11.0-15.[address] [facility] Comment on above: Performed By: #### C BC #### [facility] [address] [place] [address] Dr. Brittanie Burns Hematocrit (Bld) [Volume fraction] 33.5 % Critically low 42.0-54.[address] [facility] Comment on above: Performed By: #### C BC #### [facility] [address] [place] [address] Dr. Brittanie Burns Hemoglobin (Bld) [Mass/Vol] 11.2 g/dL Critically low 14.0-18.[address] [facility] Comment on above: Performed By: #### C BC #### [facility] [address] [place] [address] Dr. Brittanie Burns IG # 0.04 10e3/ul Critically high 0.00-0.03 [facility] Comment on above: Performed By: #### C BC #### [facility] [address] [place] [address] Dr. Brittanie Burns IG % 0.3 % Normal 0.0-0.[address] [facility] Comment on above: Performed By: #### C BC #### [facility] [address] [address] [address] Brittanie Burns LYMPH # 1.8 103/ul Normal 1.2-3.8 [facility] Comment on above: Performed By: #### C BC #### [facility] [address] [address] [address] Brittanie Burns Lymphocytes/100 WBC (Bld) 15.4 % Critically low 20.5-60.0 [facility] Comment on above: Performed By: #### C BC #### [facility] [address] [place] [address] Dr. Brittanie Burns MANUAL DIFF REQ NO Normal [facility] Comment on above: Performed By: #### C BC #### [facility] [address] [place] [address] Dr. Brittanie Burns MCH (RBC) [Entitic mass] 30.2 pg Normal 25.9-34.0 [facility] Comment on above: Performed By: #### C BC #### [facility] [address] [place] [address] Dr. Brittanie Burns MCHC (RBC) [Mass/Vol] 33.4 g/dL Normal 29.9-35.2 [facility] Comment on above: Performed By: #### C BC #### [facility] [address] [place] [address] Dr. Brittanie Burns MCV (RBC) [Entitic vol] 90.3 fL Normal 80.0-94.0 [facility] Comment on above: Performed By: #### C BC #### [facility] [address] [place] [address] Dr. Brittanie Burns MONO # 1.3 103/ul Critically high 0.3-0.8 [facility] Comment on above: Performed By: #### C BC #### [facility] [address] [place] [address] Dr. Brittanie Burns Monocytes/100 WBC (Bld) 10.7 % Normal 1.7-12.0 [facility] Comment on above: Performed By: #### C BC #### [facility] [address] [address] [address] Brittanie Burns NEUT # 8.5 103/ul Critically high 1.4-6.5 [facility] Comment on above: Performed By: #### C BC #### [facility] [address] [id number] Brittanie Burns Neutrophils/100 WBC (Bld) 72.0 % Normal 43.0-75.0 [facility] Comment on above: Performed By: #### C BC #### [facility] [address] [address] [address] Brittanie Burns Platelet mean volume (Bld) [Entitic vol] 9.4 fL Critically low 9.5-13.5 [facility] Comment on above: Performed By: #### C BC #### [facility] [address] [address] [address] Brittanie Burns PLT 241 103/ul Normal 150-450 [facility] Comment on above: Performed By: #### C BC #### [facility] [address] [place] [address] Dr. Brittanie Burns RBC 3.71 106/ul Critically low 4.70-6.10 [facility] Comment on above: Performed By: #### C BC #### [facility] [id number] Brittanie Burns WBC 11.8 103/ul Critically high 4.0-11.0 [facility] Comment on above: Performed By: #### C BC #### [facility] [id number] Brittanie Burns LYME DISEASE AB EIA W REFLEX on 10-18-2022 Lyme Total Antibody,EIA Negative Normal Negative [facility] Comment on above: Result Comment: Lyme [...] recommended. Performed By: #### L YMA #### [facility] [address] [address] [address] Brittanie Burns PROF 14(COMP METB)on 023 Albumin [Mass/Vol] 3.1 g/dL Critically low 3.4-5.0 [facility] Comment on above: Performed By: #### L YMA #### [facility] [address] [place] [address] Dr. Brittanie Burns Albumin/Globulin [Mass ratio] 1.2 {ratio} Normal [facility] Comment on above: Performed By: #### L YMA #### [facility] [address] [place] [address] Dr. Brittanie Burns ALP [Catalytic activity/Vol] 74 U/L Normal 46-[address] [facility] Comment on above: Performed By: #### L YMA #### [facility] [address] [place] [address] Dr. Brittanie Burns ALT [Catalytic activity/Vol] 13 U/L Critically low 16-[address] [facility] Comment on above: Performed By: #### L YMA #### [facility] [address] [place] [address] Dr. Brittanie Burns Anion gap [Moles/Vol] 17.6 mmol/L Normal [facility] Comment on above: Performed By: #### L YMA #### [facility] [address] [place] [address] Dr. Brittanie Burns AST [Catalytic activity/Vol] 15 U/L Normal 15-[address] [facility] Comment on above: Performed By: #### L YMA #### [facility] [address] [place] [address] Dr. Brittanie Burns Bilirubin [Mass/Vol] 0.5 mg/dL Normal 0.2-1.[address] [facility] Comment on above: Performed By: #### L YMA #### [facility] [address] [place] [address] Dr. Brittanie Burns Calcium [Mass/Vol] 8.6 mg/dL Normal 8.5-10.1 [facility] Comment on above: Performed By: #### L YMA #### [facility] [address] [address] [address] Brittanie Burns Chloride [Moles/Vol] 107 mmol/L Normal 98-107 [facility] Comment on above: Performed By: #### L YMA #### [facility] [address] [address] [address] Brittanie Burns CO2 [Moles/Vol] 21.1 mmol/L Normal 21.0-32.[address] [facility] Comment on above: Performed By: #### L YMA #### [facility] [address] [address] [address] Brittanie Burns Creatinine [Mass/Vol] 5.64 mg/dL Critically high 0.70-1.[address] [facility] Comment on above: Performed By: #### L YMA #### [facility] [address] [address] [address] Brittanie Burns EGFR-AF YEMENI 12 mL/min/1.73m2 Critically low >=[address] [facility] Comment on above: Performed By: #### L YMA #### [facility] [address] [address] [address] Brittanie Burns EGFR-NON AF YEMENI 10 mL/min/1.73m2 Critically low >=[address] [facility] Comment on above: Performed By: #### L YMA #### [facility] [address] [address] [address] Brittanie Burns Globulin (S) [Mass/Vol] 2.6 g/dL Normal [facility] Comment on above: Performed By: #### L YMA #### [facility] [address] [address] [address] Brittanie Burns Glucose [Mass/Vol] 75 mg/dL Normal 74-106 [facility] Comment on above: Performed By: #### L YMA #### [facility] [address] [address] [address] Brittanie Burns Potassium [Moles/Vol] 4.7 mmol/L Normal 3.5-5.[address] [facility] Comment on above: Performed By: #### L YMA #### [facility] [address] [place] [address] Dr. Brittanie Burns Protein [Mass/Vol] 5.7 g/dL Critically low 6.4-8.2 [facility] Comment on above: Performed By: #### L YMA #### [facility] [address] [place] [address] Dr. Brittanie Burns Sodium [Moles/Vol] 141 mmol/L Normal 136-145 [facility] Comment on above: Performed By: #### L YMA #### [facility] [address] [place] [address] Dr. Brittanie Burns Urea nitrogen [Mass/Vol] 44.0 mg/dL Critically high 7.0-18.[address] [facility] Comment on above: Performed By: #### L YMA #### [facility] [address] [place] [address] Dr. Brittanie Burns Urea nitrogen/Creatinine [Mass ratio] 7.8 mg/mg Normal [facility] Comment on above: Performed By: #### L YMA #### [facility] [address] [place] [address] Dr. Brittanie Burns RPR QUAL REFLEX TO QUANTon 0 10-18-2022 Rapid Plasma Reagin, Qual Non-Reactive Normal Non Reactive [facility] Comment on above: Performed By: #### V [id number] #### [facility] [address] [place] [address] Dr. Brittanie Burns CBC AUTO DIFFon 10-17-2022 BASO # 0.0 103/ul Normal 0.0-0.[address] [facility] Comment on above: Performed By: #### C BC #### [facility] [address] [place] [address] Dr. Brittanie Burns Basophils/100 WBC (Bld) 0.3 % Normal 0.2-2.[address] [facility] Comment on above: Performed By: #### C BC #### [facility] [address] [place] [address] Dr. Brittanie Burns EO # 0.0 103/ul Normal 0.0-0.[address] [facility] Comment on above: Performed By: #### C BC #### [facility] [address] [place] [address] Dr. Brittanie Burns Eosinophils/100 WBC (Bld) 0.1 % Critically low 0.9-7.[address] [facility] Comment on above: Performed By: #### C BC #### [facility] [address] [place] [address] Dr. Brittanie Burns Erythrocyte distribution width (RBC) [Ratio] 13.7 % Normal 11.0-15.[address] [facility] Comment on above: Performed By: #### C BC #### [facility] [address] [place] [address] Dr. Brittanie Burns Hematocrit (Bld) [Volume fraction] 34.2 % Critically low 42.0-54.[address] [facility] Comment on above: Performed By: #### C BC #### [facility] [address] [place] [address] Dr. Brittanie Burns Hemoglobin (Bld) [Mass/Vol] 11.6 g/dL Critically low 14.0-18.[address] [facility] Comment on above: Performed By: #### C BC #### [facility] [address] [place] [address] Dr. Brittanie Burns IG # 0.06 10e3/ul Critically high 0.00-0.03 [facility] Comment on above: Performed By: #### C BC #### [facility] [address] [place] [address] Dr. Brittanie Burns IG % 0.4 % Normal 0.0-0.[address] [facility] Comment on above: Performed By: #### C BC #### [facility] [address] [place] [address] Dr. Brittanie Burns LYMPH # 1.4 103/ul Normal 1.2-3.[address] [facility] Comment on above: Performed By: #### C BC #### [facility] [address] [place] [address] Dr. Brittanie Burns Lymphocytes/100 WBC (Bld) 10.4 % Critically low 20.5-60.[address] [facility] Comment on above: Performed By: #### C BC #### [facility] [address] [place] [address] Dr. Brittanie Burns MANUAL DIFF REQ NO Normal [facility] Comment on above: Performed By: #### C BC #### [facility] [address] [place] [address] Dr. Brittanie Burns MCH (RBC) [Entitic mass] 30.9 pg Normal 25.9-34.[address] [facility] Comment on above: Performed By: #### C BC #### [facility] [address] [place] [address] Dr. Brittanie Burns MCHC (RBC) [Mass/Vol] 33.9 g/dL Normal 29.9-35.[address] [facility] Comment on above: Performed By: #### C BC #### [facility] [address] [place] [address] Dr. Brittanie Burns MCV (RBC) [Entitic vol] 91.0 fL Normal 80.0-94.[address] [facility] Comment on above: Performed By: #### C BC #### [facility] [address] [place] [address] Dr. Brittanie Burns MONO # 1.4 103/ul Critically high 0.3-0.8 [facility] Comment on above: Performed By: #### C BC #### [facility] [address] [place] [address] Dr. Brittanie Burns Monocytes/100 WBC (Bld) 10.3 % Normal 1.7-12.0 [facility] Comment on above: Performed By: #### C BC #### [facility] [address] [place] [address] Dr. Brittanie Burns NEUT # 10.5 103/ul Critically high 1.4-6.5 [facility] Comment on above: Performed By: #### C BC #### [facility] [address] [place] [address] Dr. Brittanie Burns Neutrophils/100 WBC (Bld) 78.5 % Critically high 43.0-75.0 [facility] Comment on above: Performed By: #### C BC #### [facility] [address] [place], [place] [address] Dr. Brittanie Burns Platelet mean volume (Bld) [Entitic vol] 9.2 fL Critically low 9.5-13.[address] [facility] Comment on above: Performed By: #### C BC #### [facility] [address] [place], [place] [address] Dr. Brittanie Burns PLT 251 103/ul Normal 150-[address] [facility] Comment on above: Performed By: #### C BC #### [facility] [address] [address] [address] Brittanie Burns RBC 3.76 106/ul Critically low 4.70-6.10 [facility] Comment on above: Performed By: #### C BC #### [facility] [address] [address] [address] Brittanie Burns WBC 13.4 103/ul Critically high 4.0-11.[address] [facility] Comment on above: Performed By: #### C BC #### [facility] [address] [place] [address] Dr. Brittanie Burns LIPID PROFILEon 10-17-2022 CHOL-HDL RATIO NORM SEE BELOW Normal [place] Comment on above: Result Comment: 3.3 - 4.4 LOW RISK 4.4 - 7.1 AVERAGE RISK 7.1 - 11.0 MODERATE RISK >11.0 HIGH RISK Performed By: #### D RUGRPD #### [facility] [address] [place] [address] Dr. Brittanie Burns Cholesterol [Mass/Vol] 162 mg/dL Normal <=200 [facility] Comment on above: Performed By: #### D RUGRPD #### [facility] [address] [id number] Brittanie Burns Cholesterol in HDL [Mass/Vol] 32 mg/dL Critically low 40-[address] [facility] Comment on above: Performed By: #### D RUGRPD #### [facility] [id number] Brittanie Burns Cholesterol in LDL [Mass/Vol] 98.6 mg/dL Normal [facility] Comment on above: Performed By: #### D RUGRPD #### [facility] [address] [address] [address] Brittanie Burns Cholesterol.total/Chol esterol in HDL [Mass ratio] 5.1 {ratio} Normal [facility] Comment on above: Performed By: #### D RUGRPD #### [facility] [address] [address] [address] Brittanie Burns HDL NORMAL > or = 60 mg/dl - LOW CARDIOVASCULAR RISK <40 mg/dl - HIGH CARDIOVASCULAR RISK Normal [facility] Comment on above: Performed By: #### D RUGRPD #### [facility] [address] [address] [address] Brittanie Burns LDL CALC NORMAL SEE BELOW Normal [facility] Comment on above: Result Comment: <100 mg/dl OPTIMAL 100 - 129 mg/dl NEAR OR ABOVE OPTIMAL 130 - 159 mg/dl BORDERLINE HIGH 160 - 189 mg/dl HIGH >190 mg/dl VERY HIGH Performed By: #### D RUGRPD #### [facility] [address] [address] [address] Brittanie Burns Triglyceride [Mass/Vol] 157 mg/dL Critically high <=[address] [facility] Comment on above: Performed By: #### D RUGRPD #### [facility] [address] [address] [address] Brittanie Burns VLDL CALC 31.4 mg/dL Normal [facility] Comment on above: Performed By: #### D RUGRPD #### [facility] [address] [address] [address] Brittanie Burns MRI BRAIN WO CONon [...] by: DIONNE JEROME Date: 2022-10-17 21:[address] [facility] PROF 14(COMP METB)on 10-17- 023 Albumin [Mass/Vol] 3.1 g/dL Critically low 3.4-5.0 [facility] Comment on above: Performed By: #### B 12FOL #### [facility] [address] [address] [address] Brittanie Burns Albumin/Globulin [Mass ratio] 0.9 {ratio} Normal [facility] Comment on above: Performed By: #### B 12FOL #### [facility] [address] [place] [address] Dr. Brittanie Burns ALP [Catalytic activity/Vol] 63 U/L Normal 46-[address] [facility] Comment on above: Performed By: #### B 12FOL #### [facility] [address] [place] [address] Dr. Brittanie Burns ALT [Catalytic activity/Vol] 15 U/L Critically low 16-[address] [facility] Comment on above: Performed By: #### B 12FOL #### [facility] [address] [place] [address] Dr. Brittanie Burns Anion gap [Moles/Vol] 17.5 mmol/L Normal [facility] Comment on above: Performed By: #### B 12FOL #### [facility] [address] [place] [address] Dr. Brittanie Burns AST [Catalytic activity/Vol] 15 U/L Normal 15-[address] [facility] Comment on above: Performed By: #### B 12FOL #### [facility] [address] [place] [address] Dr. Brittanie Burns Bilirubin [Mass/Vol] 0.4 mg/dL Normal 0.2-1.[address] [facility] Comment on above: Performed By: #### B 12FOL #### [facility] [address] [address] [address] Brittanie Burns Calcium [Mass/Vol] 9.0 mg/dL Normal 8.5-10.1 [facility] Comment on above: Performed By: #### B 12FOL #### [facility] [address] [place] [address] Dr. Brittanie uBrns Chloride [Moles/Vol] 114 mmol/L Critically high 98-107 [facility] Comment on above: Performed By: #### B 12FOL #### [facility] [address] [place] [address] Dr. Brittanie Burns CO2 [Moles/Vol] 22.8 mmol/L Normal 21.0-32.[address] [facility] Comment on above: Performed By: #### B 12FOL #### [facility] [address] [place] [address] Dr. Brittanie Burns Creatinine [Mass/Vol] 6.98 mg/dL Critically high 0.70-1.[address] [facility] Comment on above: Performed By: #### B 12FOL #### [facility] [address] [place] [address] Dr. Brittanie Burns EGFR-AF YEMENI 9 mL/min/1.73m2 Critically low >=[address] [facility] Comment on above: Performed By: #### B 12FOL #### [facility] [address] [place] [address] Dr. Brittanie Burns EGFR-NON AF YEMENI 8 mL/min/1.73m2 Critically low >=60 [facility] Comment on above: Performed By: #### B 12FOL #### [facility] [address] [place] [address] Dr. Brittanie Burns Globulin (S) [Mass/Vol] 3.3 g/dL Normal [facility] Comment on above: Performed By: #### B 12FOL #### [facility] [address] [place] [address] Dr. Brittanie Burns Glucose [Mass/Vol] 104 mg/dL Normal 74-106 [facility] Comment on above: Performed By: #### B 12FOL #### [facility] [address] [place] [address] Dr. Brittanie Burns Potassium [Moles/Vol] 5.3 mmol/L Critically high 3.5-5.[address] [facility] Comment on above: Performed By: #### B 12FOL #### [facility] [address] [place] [address] Dr. Brittanie Burns Protein [Mass/Vol] 6.4 g/dL Normal 6.4-8.2 [facility] Comment on above: Performed By: #### B 12FOL #### [facility] [address] [place] [address] Dr. Brittanie Burns Sodium [Moles/Vol] 149 mmol/L Critically high 136-145 [facility] Comment on above: Performed By: #### B 12FOL #### [facility] [address] [place] [address] Dr. Brittanie Burns Urea nitrogen [Mass/Vol] 45.0 mg/dL Critically high 7.0-18.[address] [facility] Comment on above: Performed By: #### B 12FOL #### [facility] [address] [place] [address] Dr. Brittanie Burns Urea nitrogen/Creatinine [Mass ratio] 6.4 mg/mg Normal [facility] Comment on above: Performed By: #### B 12FOL #### [facility] [address] [place] [address] Dr. Brittanie Burns TSHon 10-17-2022 TSH 1.347 uIU/mL Normal 0.358-3.740 [facility] Comment on above: Performed By: #### D RUGRPD #### [facility] [address] [place] [address] Dr. Brittanie Burns VIT B12 AND FOLATEon 023 Cobalamin (Vitamin B12) [Mass/Vol] 296.0 pg/mL Normal 193.0-986.[address] [facility] Comment on above: Performed By: #### B 12FOL #### [facility] [address] [place] [address] Dr. Brittanie Burns FOLATE 12.20 ng/mL Normal 8.60-58.[address] [facility] Comment on above: Performed By: #### B 12FOL #### [facility] [address] [place] [address] Dr. Brittanie Burns ACETAMINOPHENon 10-16-2022 Acetaminophen [Mass/Vol] ug/mL Critically low 10.0-30.[address] [facility] Comment on above: Performed By: #### L YMA #### [facility] [address] [place] [address] Dr. Brittanie Burns ACETONE SERUMon 10-16-2022 ACETONE Negative Normal NEGATIVE [facility] Comment on above: Performed By: #### D RUGRPD #### [facility] [address] [place] [address] Dr. Brittanie Burns AMMONIAon 10-16-2022 Ammonia (P) [Mass/Vol] ug/dL Critically low 11-[address] [facility] Comment on above: Performed By: #### L YMA #### [facility] [address] [place] [address] Dr. Brittanie Burns BLOOD CULTURE ID PANELon A. baumannii Not detected Normal NOT DETECTED [facility] Comment on above: Performed By: #### L YMA #### [facility] [address] [place] [address] Dr. Brittanie Burns Bacteriodes fragilis Not detected Normal NOT DETECTED [facility] Comment on above: Performed By: #### L YMA #### [facility] [address] [place] [address] Dr. Brittanie Burns BCID CONTROLS PASSED Normal [facility] Comment on above: Performed By: #### L YMA #### [facility] [address] [place] [address] Dr. Brittanie BRANHAMDBTHD BLOOD CULTURE BOTTLE INFORMATION Normal [facility] Comment on above: Performed By: #### L YMA #### [facility] [address] [place] [address] Dr. Brittanie Burns BCIDHD1 ANTIMICROBIAL RESISTANCE GENES Normal [facility] Comment on above: Performed By: #### L YMA #### [facility] [address] [place] [address] Dr. Brittanie Burns BCIDHD2 SEE BELOW Normal [facility] Comment on above: Result Comment: Note : Antimicrobial resitance can occur via multiple mechanisms. A Not Detected result for the [employer] antomicrobial resistance gene assays does not indicate antimicrobial susceptibility. Subculturing is required for species identification and susceptibility testing of isolates. Performed By: #### L YMA #### [facility] [address] [place] [address] Dr. Brittanie Burns BCIDHD3 Positive Normal [facility] Comment on above: Performed By: #### L YMA #### [facility] [address] [place] [address] Dr. Brittanie Burns BCIDHD4 Negative Normal [facility] Comment on above: Performed By: #### L YMA #### [facility] [address] [place] [address] Dr. Brittanie Burns BCIDHD5 YEAST Normal [facility] Comment on above: Performed By: #### L YMA #### [facility] [address] [place] [address] Dr. Brittanie Burns Bottle Set: Set 2 Normal [facility] Comment on above: Performed By: #### L YMA #### [facility] [address] [place] [address] Dr. Brittanie Burns Bottle: Anaerobic Normal [facility] Comment on above: Performed By: #### L YMA #### [facility] [address] [place] [address] Dr. Brittanie Burns C. neoformans/gattii Not detected Normal NOT DETECTED [facility] Comment on above: Performed By: #### L YMA #### [facility] [address] [place] [address] Dr. Brittanie Burns Mari albicans Not detected Normal NOT DETECTED [facility] Comment on above: Performed By: #### L YMA #### [facility] [address] [place] [address] Dr. Brittanie Burns Mari auris Not detected Normal NOT DETECTED [facility] Comment on above: Performed By: #### L YMA #### [facility] [address] [address] [address] Brittanie Burns Mari glabrata Not detected Normal NOT DETECTED [facility] Comment on above: Performed By: #### L YMA #### [facility] [address] [address] [address] Brittanie Burns Mari Krusei Not detected Normal NOT DETECTED [facility] Comment on above: Performed By: #### L YMA #### [facility] [address] [address] [address] Brittanie Burns Mari Parapsilosis Not detected Normal NOT DETECTED [facility] Comment on above: Performed By: #### L YMA #### [facility] [address] [address] [address] Brittanie Burns Mari Tropicalis Not detected Normal NOT DETECTED [facility] Comment on above: Performed By: #### L YMA #### [facility] [address] [place] [address] Dr. Brittanie Burns CTX-M Resistant Gene Not Applicable Normal NOT DETECTE D [facility] Comment on above: Performed By: #### L YMA #### [facility] [address] [place] [address] Dr. Brittanie Burns E. Cloacae complex Not detected Normal NOT DETECTED [facility] Comment on above: Performed By: #### L YMA #### [facility] [address] [address] [address] Brittanie Burns E. faecalis Not detected Normal NOT DETECTED [facility] Comment on above: Performed By: #### L YMA #### [facility] [address] [place] [address] Dr. Brittanie Burns E. faecium Not detected Normal NOT DETECTED [facility] Comment on above: Performed By: #### L YMA #### [facility] [address] [place] [address] Dr. Brittanie Burns Enterobacteriaceae Not detected Normal NOT DETECTED [facility] Comment on above: Performed By: #### L YMA #### [facility] [address] [address] [address] Brittanie Burns Escherichia coli Not detected Normal NOT DETECTED [facility] Comment on above: Performed By: #### L YMA #### [facility] [address] [place] [address] Dr. Brittanie Burns H. influenzae Not detected Normal NOT DETECTED [facility] Comment on above: Performed By: #### L YMA #### [facility] [address] [place] [address] Dr. Brittanie Burns IMP Resistant Gene Not Applicable Normal NOT DETECTED [facility] Comment on above: Performed By: #### L YMA #### [facility] [address] [place] [address] Dr. Brittanie Burns K. oxytoca Not detected Normal NOT DETECTED [facility] Comment on above: Performed By: #### L YMA #### [facility] [address] [place] [address] Dr. Brittanie Burns K. pneumoniae Not detected Normal NOT DETECTED [facility] Comment on above: Performed By: #### L YMA #### [facility] [address] [place] [address] Dr. Brittanie Burns Klebsiella aerogenes Not detected Normal NOT DETECTED [facility] Comment on above: Performed By: #### L YMA #### [facility] [address] [place] [address] Dr. Brittanie Burns KPC Resistant Gene Not Applicable Normal NOT DETECTED [facility] Comment on above: Performed By: #### L YMA #### [facility] [address] [place] [address] Dr. Brittanie Burns List. monocytogenes Not detected Normal NOT DETECTED [facility] Comment on above: Performed By: #### L YMA #### [facility] [address] [place] [address] Dr. Brittanie Burns Mcr-1 Resistant Gene Not Applicable Normal NOT DETECTE D [facility] Comment on above: Performed By: #### L YMA #### [facility] [address] [place] [address] Dr. Brittanie Burns mecA/C Not Applicable Normal NOT DETECTED [facility] Comment on above: Performed By: #### L YMA #### [facility] [address] [place] [address] Dr. Brittanie Burns mecA/C MREJ Not Applicable Normal NOT DETECTED [facility] Comment on above: Performed By: #### L YMA #### [facility] [address] [place] [address] Dr. Brittanie Burns N. meningitidis Not detected Normal NOT DETECTED [facility] Comment on above: Performed By: #### L YMA #### [facility] [address] [place] [address] Dr. Brittanie Burns NDM Resistant Gene Not Applicable Normal NOT DETECTED [facility] Comment on above: Performed By: #### L YMA #### [facility] [address] [place] [address] Dr. Brittanie Burns Oxa-48-like Not Applicable Normal NOT DETECTED [facility] Comment on above: Performed By: #### L YMA #### [facility] [address] [place] [address] Dr. Brittanie Burns Proteus Not detected Normal NOT DETECTED [facility] Comment on above: Performed By: #### L YMA #### [facility] [address] [place] [address] Dr. Brittanie Burns Pseud. aeruginosa Not detected Normal NOT DETECTED [facility] Comment on above: Performed By: #### L YMA #### [facility] [address] [place] [address] Dr. Brittanie Burns S. maltophilia Not detected Normal NOT DETECTED [facility] Comment on above: Performed By: #### L YMA #### [facility] [address] [place] [address] Dr. Brittanie Burns Salmonella Not detected Normal NOT DETECTED [facility] Comment on above: Performed By: #### L YMA #### [facility] [address] [place] [address] Dr. Brittanie Burns Seratia marcescens Not detected Normal NOT DETECTED [facility] Comment on above: Performed By: #### L YMA #### [facility] [address] [address] [address] Brittanie Burns Site: Lt Forearm Normal [facility] Comment on above: Performed By: #### L YMA #### [facility] [address] [place] [address] Dr. Brittanie Burns Staph. aureus Not detected Normal NOT DETECTED [facility] Comment on above: Performed By: #### L YMA #### [facility] [address] [place] [address] Dr. Brittanie Burns Staph. epidermidis Not detected Normal NOT DETECTED [facility] Comment on above: Performed By: #### L YMA #### [facility] [address] [place] [address] Dr. Brittanie Burns Staph. lugdunensis Not detected Normal NOT DETECTED [facility] Comment on above: Performed By: #### L YMA #### [facility] [address] [place] [address] Dr. Brittanie Burns Staphylococcus Detected Critically abnormal NOT DETECTED [facility] Comment on above: Performed By: #### L YMA #### [facility] [address] [place] [address] Dr. Brittanie Burns Strep. agalactiae Not detected Normal NOT DETECTED [facility] Comment on above: Performed By: #### L YMA #### [facility] [address] [place] [address] Dr. Brittanie Burns Strep. pneumoniae Not detected Normal NOT DETECTED [facility] Comment on above: Performed By: #### L YMA #### [facility] [address] [place] [address] Dr. Brittanie Burns Strep. pyogenes Not detected Normal NOT DETECTED [facility] Comment on above: Performed By: #### L YMA #### [facility] [address] [place] [address] Dr. Brittanie Burns Streptococcus Not detected Normal NOT DETECTED [facility] Comment on above: Performed By: #### L YMA #### [facility] [address] [place] [address] Dr. Brittanie Burns Golden/B Resist. Gene Not Applicable Normal NOT DETECTED [facility] Comment on above: Performed By: #### L YMA #### [facility] [address] [place] [address] Dr. Brittanie Burns VIM Resistant Gene Not Applicable Normal NOT DETECTED [facility] Comment on above: Performed By: #### L YMA #### [facility] [address] [place] [address] Dr. Brittanie Burns BNPon 10-16-2022 Natriuretic peptide B (Bld) [Mass/Vol] 881.0 pg/mL Normal <=900.[address] [facility] Comment on above: Performed By: #### B 12FOL #### [facility] [address] [place] [address] Dr. Brittanie Burns CARDIAC TING ADMITon 023 CK [Catalytic activity/Vol] 153 U/L Normal 39-[address] [facility] Comment on above: Performed By: #### B 12FOL #### [facility] [address] [place] [address] Dr. Brittanie Burns CK.MB [Mass/Vol] 1.86 ng/mL Normal <=3.60 [facility] Comment on above: Performed By: #### B 12FOL #### [facility] [address] [place] [address] Dr. Brittanie Burns HSTROP 29.4 pg/mL Normal 4.0-76.[address] [facility] Comment on above: Result Comment: CUT- OFF POINTS HAVE BEEN ESTABLISHED BASED ON THE FOURTH UNIVERSAL DEFINITIONS OF MYOCARDIAL INFARCTION. THE UPPER REFERENCE LIMIT (URL) OF TROPONIN, DEFINED THE 99TH PERCENTILE OF cTnI DISTRIBUTION IN A REFERENCE POPULATION, HAS BEEN CONFIRMED THE DECISION THRESHOLD FOR AL DIAGNOSIS. Performed By: #### B 12FOL #### [facility] [address] [place] [address] Dr. Brittanie Burns LYRIC 201 ng/mL Critically high 16-96 [facility] Comment on above: Performed By: #### B 12FOL #### [facility] [address] [place] [address] Dr. Brittanie Burns CBC AUTO DIFFon 10-16-2022 BASO # 0.1 103/ul Normal 0.0-0.[address] [facility] Comment on above: Performed By: #### C BC #### [facility] [address] [place] [address] Dr. Brittanie Burns Basophils/100 WBC (Bld) 0.6 % Normal 0.2-2.[address] [facility] Comment on above: Performed By: #### C BC #### [facility] [address] [place] [address] Dr. Brittanie Burns EO # 0.1 103/ul Normal 0.0-0.[address] [facility] Comment on above: Performed By: #### C BC #### [facility] [address] [place] [address] Dr. Brittanie Burns Eosinophils/100 WBC (Bld) 0.8 % Critically low 0.9-7.[address] [facility] Comment on above: Performed By: #### C BC #### [facility] [address] [place] [address] Dr. Brittanie Burns Erythrocyte distribution width (RBC) [Ratio] 13.7 % Normal 11.0-15.[address] [facility] Comment on above: Performed By: #### C BC #### [facility] [address] [place] [address] Dr. Brittanie Burns Hematocrit (Bld) [Volume fraction] 41.4 % Critically low 42.0-54.[address] [facility] Comment on above: Performed By: #### C BC #### [facility] [address] [place] [address] Dr. Brittanie Burns Hemoglobin (Bld) [Mass/Vol] 13.9 g/dL Critically low 14.0-18.[address] [facility] Comment on above: Performed By: #### C BC #### [facility] [address] [place] [address] Dr. Brittanie Burns IG # 0.05 10e3/ul Critically high 0.00-0.03 [facility] Comment on above: Performed By: #### C BC #### [facility] [address] [place] [address] Dr. Brittanie Burns IG % 0.4 % Normal 0.0-0.[address] [facility] Comment on above: Performed By: #### C BC #### [facility] [address] [place] [address] Dr. Brittanie Burns LYMPH # 1.4 103/ul Normal 1.2-3.[address] [facility] Comment on above: Performed By: #### C BC #### [facility] [address] [place] [address] Dr. Brittanie Burns Lymphocytes/100 WBC (Bld) 11.0 % Critically low 20.5-60.[address] [facility] Comment on above: Performed By: #### C BC #### [facility] [address] [place] [address] Dr. Brittanie Burns MANUAL DIFF REQ NO Normal [facility] Comment on above: Performed By: #### C BC #### [facility] [address] [place] [address] Dr. Brittanie Burns MCH (RBC) [Entitic mass] 30.5 pg Normal 25.9-34.[address] [facility] Comment on above: Performed By: #### C BC #### [facility] [address] [place] [address] Dr. Brittanie Burns MCHC (RBC) [Mass/Vol] 33.6 g/dL Normal 29.9-35.[address] [facility] Comment on above: Performed By: #### C BC #### [facility] [address] [place] [address] Dr. Brittanie Burns MCV (RBC) [Entitic vol] 91.0 fL Normal 80.0-94.[address] [facility] Comment on above: Performed By: #### C BC #### [facility] [address] [place] [address] Dr. Brittanie Burns MONO # 1.2 103/ul Critically high 0.3-0.8 [facility] Comment on above: Performed By: #### C BC #### [facility] [address] [place] [place] [address] Dr. Brittanie Burns Monocytes/100 WBC (Bld) 9.3 % Normal 1.7-12.[address] [facility] Comment on above: Performed By: #### C BC #### [facility] [address] [address] [address] Brittanie Burns NEUT # 10.0 103/ul Critically high 1.4-6.[address] [facility] Comment on above: Performed By: #### C BC #### [facility] [id number] Brittanie Burns Neutrophils/100 WBC (Bld) 77.9 % Critically high 43.0-75.[address] [facility] Comment on above: Performed By: #### C BC #### [facility] [address] [address] [address] Brittanie Burns Platelet mean volume (Bld) [Entitic vol] 9.6 fL Normal 9.5-13.[address] [facility] Comment on above: Performed By: #### C BC #### [facility] [address] [address] [address] Brittanie Burns PLT 269 103/ul Normal 150-450 [facility] Comment on above: Performed By: #### C BC #### [facility] [id number] Brittanie Burns RBC 4.55 106/ul Critically low 4.70-6.10 [facility] Comment on above: Performed By: #### C BC #### [facility] [id number] Brittanie Burns WBC 12.8 103/ul Critically high 4.0-11.0 [facility] Comment on above: Performed By: #### C BC #### [facility] [address] [place] [address] ABD/PELVIS WO CONon [...] by: KYLE BOYLE Date: 2022-10-16 15:[address] [facility] CT STROKE HEAD WOon 10-17-19 CT [...] by: KYLE BOYLE Date: 2022-10-16 13:[address] [facility] CULTURE BLOODon 10-16-2022 Microscopic examination of blood, culture Culture Observations: NO GROWTH AT 5 DAYS. Normal [facility] Comment on above: Performed By: #### C BC #### [facility] [address] [place] [address] Dr. Brittanie Burns CULTURE URINEon 10-16-2022 CULTURE URINE Culture Observations: NO GROWTH. Normal [facility] Comment on above: Performed By: #### C BC #### [facility] [address] [address] [address] Brittanie Burns [facility] SARS-CoV-2 (COVID-19) RNA HOPE+probe Ql (Unsp spec) Not detected Normal NOT DETECTED [facility] Comment on above: Result Comment: When [...] for this test is supported by the Investigator Vice of Health and Human Service's declaration that [...] used). Performed By: #### D RUGRPD #### [facility] [address] [address] [address] Brittanie Burns DRUG SCREEN RAPID (URINE)on 10-16-2022 AMP Negative Normal NEGATIVE [facility] Comment on above: Performed By: #### D RUGRPD #### [facility] [address] [place] [address] Dr. Brittanie Burns BAR Negative Normal NEGATIVE [facility] Comment on above: Performed By: #### D RUGRPD #### [facility] [address] [place] [address] Dr. Brittanie Burns BUP Negative Normal NEGATIVE [facility] Comment on above: Performed By: #### D RUGRPD #### [facility] [address] [place] [address] Dr. Brittanie Burns BZO Negative Normal NEGATIVE [facility] Comment on above: Performed By: #### D RUGRPD #### [facility] [address] [place] [address] Dr. Brittanie Burns MARCELA Negative Normal NEGATIVE [facility] Comment on above: Performed By: #### D RUGRPD #### [facility] [address] [place] [address] Dr. Brittanie Burns CUT-OFFS SEE BELOW Normal [facility] Comment on above: Result Comment: AMP [...] ng/mL Performed By: #### D RUGRPD #### [facility] [address] [place] [address] Dr. Brittanie Bursn DRUG CUT HEADER DRUG CLASS TEST SYSTEM CUT-OFF CONCENTRATIONS ARE FOLLOWS: Normal [facility] Comment on above: Performed By: #### D RUGRPD #### [facility] [address] [place] [address] Dr. Brittanie Burns mAMP Negative Normal NEGATIVE [facility] Comment on above: Performed By: #### D RUGRPD #### [facility] [address] [place] [address] Dr. Brittanie Burns MTD Negative Normal NEGATIVE [facility] Comment on above: Performed By: #### D RUGRPD #### [facility] [address] [place] [address] Dr. Brittanie Burns OPI Negative Normal NEGATIVE [facility] Comment on above: Performed By: #### D RUGRPD #### [facility] [address] [place] [address] Dr. Brittanie Burns OXY Negative Normal NEGATIVE [facility] Comment on above: Performed By: #### D RUGRPD #### [facility] [address] [place] [address] Dr. Brittanie Burns PCP Negative Normal NEGATIVE [facility] Comment on above: Performed By: #### D RUGRPD #### [facility] [address] [place] [address] Dr. Brittanie Burns PPX Negative Normal NEGATIVE [facility] Comment on above: Performed By: #### D RUGRPD #### [facility] [address] [place] [address] Dr. Brittanie Burns TCA Negative Normal NEGATIVE [facility] Comment on above: Performed By: #### D RUGRPD #### [facility] [address] [place] [address] Dr. Brittanie Burns THC Positive Abnormal NEGATIVE [facility] Comment on above: Performed By: #### D RUGRPD #### [facility] [address] [place] [address] Dr. Brittanie Burns ER URINE PROFILEon 3 Bilirubin Ql (U) Negative Normal NEGATIVE [facility] Comment on above: Performed By: #### D RUGRPD #### [facility] [address] [address] [address] Brittanie Burns Clarity (U) CLEAR Normal CLEAR [facility] Comment on above: Performed By: #### D RUGRPD #### [facility] [address] [place] [address] Dr. Brittanie Burns Color (U) LT. YELLOW Normal YELLOW [facility] Comment on above: Performed By: #### D RUGRPD #### [facility] [address] [place] [address] Dr. Brittanie MCCLELLAN A micrscopic examination will be performed if indicated. Normal [facility] Comment on above: Performed By: #### D RUGRPD #### [facility] [address] [place] [address] Dr. Brittanie Burns Glucose Ql (U) Negative Normal NEGATIVE [facility] Comment on above: Performed By: #### D RUGRPD #### [facility] [address] [place] [address] Dr. Brittanie Burns Hemoglobin Ql (U) SMALL Abnormal NEGATIVE [facility] Comment on above: Performed By: #### D RUGRPD #### [facility] [address] [place] [address] Dr. Brittanie Burns Ketones Ql (U) Negative Normal NEGATIVE [facility] Comment on above: Performed By: #### D RUGRPD #### [facility] [address] [place] [address] Dr. Brittanie Burns LEUKOCYTES Negative Normal NEGATIVE [facility] Comment on above: Performed By: #### D RUGRPD #### [facility] [address] [place] [address] Dr. Brittanie Burns Nitrite Ql (U) Negative Normal NEGATIVE [facility] Comment on above: Performed By: #### D RUGRPD #### [facility] [address] [place] [address] Dr. Brittanie Burns pH (U) 6.0 [pH] Normal 5-9 [facility] Comment on above: Performed By: #### D RUGRPD #### [facility] [address] [place] [address] Dr. Brittanie Burns SPEC GRAVITY 1.010 Normal 1.005-<=1.025 [facility] Comment on above: Performed By: #### D RUGRPD #### [facility] [address] [place] [address] Dr. Brittanie Burns UA PROTEIN Negative Normal NEGATIVE/ TRACE [facility] Comment on above: Performed By: #### D RUGRPD #### [facility] [address] [place] [address] Dr. Brittanie Burns UR MICRO IND INDICATED Normal [facility] Comment on above: Performed By: #### D RUGRPD #### [facility] [address] [place] [address] Dr. Brittanie Burns Urobilinogen Qn (U) 0.2 {Alice'U}/dL Normal 0.2 - 1. [address] [facility] Comment on above: Performed By: #### D RUGRPD #### [facility] [address] [place] [address] Dr. Brittanie Burns ETHANOL (BLD ALC)on 10-17-19 ALC NOTE NOTE: 80 mg/dl is the legal limit for a blood alcohol level Normal [facility] Comment on above: Performed By: #### L YMA #### [facility] [address] [place] [address] Dr. Brittanie Burns Ethanol [Mass/Vol] mg/dL Normal [facility] Comment on above: Performed By: #### L YMA #### [facility] [address] [place] [address] Dr. Brittanie Burns LACTATE/LACTIC ACIDon 2022 Lactate [Moles/Vol] 1.1 mmol/L Normal 0.4-2.0 [place] Comment on above: Performed By: #### L ACT #### [facility] [address] [place] [address] Dr. Brittanie Burns POINT OF CARE GLUCOSEon 09-22 Glucose [Mass/Vol] 129 mg/dL Critically high 74-106 T [facility] Comment on above: Performed By: #### D RUGRPD #### [facility] [address] [address] [address] Brittanie Burns PROF 14(COMP METB)on 023 Albumin [Mass/Vol] 3.6 g/dL Normal 3.4-5.0 [facility] Comment on above: Performed By: #### B 12FOL #### [facility] [address] [address] [address] Brittanie Burns Albumin/Globulin [Mass ratio] 0.9 {ratio} Normal [facility] Comment on above: Performed By: #### B 12FOL #### [facility] [address] [address] [address] Brittanie Burns ALP [Catalytic activity/Vol] 87 U/L Normal 46-[address] [facility] Comment on above: Performed By: #### B 12FOL #### [facility] [address] [address] [address] Brittanie Burns ALT [Catalytic activity/Vol] 13 U/L Critically low 16-[address] [facility] Comment on above: Performed By: #### B 12FOL #### [facility] [address] [address] [address] Brittanie Burns Anion gap [Moles/Vol] 17.9 mmol/L Normal [facility] Comment on above: Performed By: #### B 12FOL #### [facility] [address] [address] [address] Brittanie Burns AST [Catalytic activity/Vol] 20 U/L Normal 15-[address] [facility] Comment on above: Performed By: #### B 12FOL #### [facility] [address] [address] [address] Brittanie Burns Bilirubin [Mass/Vol] 0.3 mg/dL Normal 0.2-1.[address] [facility] Comment on above: Performed By: #### B 12FOL #### [facility] [address] [address] [address] Brittanie Burns Calcium [Mass/Vol] 9.5 mg/dL Normal 8.5-10.1 [facility] Comment on above: Performed By: #### B 12FOL #### [facility] [address] [address] [address] Brittanie Burns Chloride [Moles/Vol] 103 mmol/L Normal 98-[address] [facility] Comment on above: Performed By: #### B 12FOL #### [facility] [address] [address] [address] Brittanie Burns CO2 [Moles/Vol] 22.2 mmol/L Normal 21.0-32.[address] [facility] Comment on above: Performed By: #### B 12FOL #### [facility] [address] [address] [address] Brittanie Burns Creatinine [Mass/Vol] 7.79 mg/dL Critically high 0.70-1.[address] [facility] Comment on above: Performed By: #### B 12FOL #### [facility] [address] [address] [address] Brittanie Burns EGFR-AF YEMENI 8 mL/min/1.73m2 Critically low >=[address] [facility] Comment on above: Performed By: #### B 12FOL #### [facility] [address] [address] [address] Brittanie Burns EGFR-NON AF YEMENI 7 mL/min/1.73m2 Critically low >=[address] [facility] Comment on above: Performed By: #### B 12FOL #### [facility] [address] [address] [address] Brittanie Burns Globulin (S) [Mass/Vol] 4.0 g/dL Normal [facility] Comment on above: Performed By: #### B 12FOL #### [facility] [address] [address] [address] Brittanie Burns Glucose [Mass/Vol] 129 mg/dL Critically high 74-106 T [facility] Comment on above: Performed By: #### B 12FOL #### [facility] [address] [address] [address] Brittanie Burns Potassium [Moles/Vol] 5.1 mmol/L Normal 3.5-5.[address] [facility] Comment on above: Performed By: #### B 12FOL #### [facility] [address] [place] [address] Dr. Brittanie Burns Protein [Mass/Vol] 7.6 g/dL Normal 6.4-8.2 [facility] Comment on above: Performed By: #### B 12FOL #### [facility] [address] [place] [address] Dr. Brittanie Burns Sodium [Moles/Vol] 138 mmol/L Normal 136-145 [facility] Comment on above: Performed By: #### B 12FOL #### [facility] [address] [place] [address] Dr. Brittanie Burns Urea nitrogen [Mass/Vol] 44.0 mg/dL Critically high 7.0-18.[address] [facility] Comment on above: Performed By: #### B 12FOL #### [facility] [address] [place] [address] Dr. Brittanie Burns Urea nitrogen/Creatinine [Mass ratio] 5.6 mg/mg Normal [facility] Comment on above: Performed By: #### B 12FOL #### [facility] [address] [place] [address] Dr. Brittanie Burns PROF CHEM 8 (BAS METB)on Anion gap [Moles/Vol] 15.7 mmol/L Normal [facility] Comment on above: Performed By: #### B MP #### [facility] [address] [place] [address] Dr. Brittanie Burns Calcium [Mass/Vol] 8.7 mg/dL Normal 8.5-10.1 [facility] Comment on above: Performed By: #### B MP #### [facility] [address] [place] [address] Dr. Brittanie Burns Chloride [Moles/Vol] 108 mmol/L Critically high 98-[address] [facility] Comment on above: Performed By: #### B MP #### [facility] [address] [place] [address] Dr. Brittanie Burns CO2 [Moles/Vol] 23.1 mmol/L Normal 21.0-32.[address] [facility] Comment on above: Performed By: #### B MP #### [facility] [address] [address] [address] Brittanie Burns Creatinine [Mass/Vol] 7.19 mg/dL Critically high 0.70-1.[address] [facility] Comment on above: Performed By: #### B MP #### [facility] [address] [address] [address] Brittanie Burns EGFR-AF YEMENI 9 mL/min/1.73m2 Critically low >=[address] [facility] Comment on above: Performed By: #### B MP #### [facility] [address] [address] [address] Brittanie Burns EGFR-NON AF YEMENI 8 mL/min/1.73m2 Critically low >=[address] [facility] Comment on above: Performed By: #### B MP #### [facility] [address] [address] [address] Brittanie Burns Glucose [Mass/Vol] 102 mg/dL Normal 74-106 [facility] Comment on above: Performed By: #### B MP #### [facility] [address] [address] [address] Brittanie Burns Potassium [Moles/Vol] 4.8 mmol/L Normal 3.5-5.[address] [facility] Comment on above: Performed By: #### B MP #### [facility] [address] [address] [address] Brittanie Burns Sodium [Moles/Vol] 142 mmol/L Normal 136-145 [facility] Comment on above: Performed By: #### B MP #### [facility] [address] [address] [address] Brittanie Burns Urea nitrogen [Mass/Vol] 44.0 mg/dL Critically high 7.0-18.[address] [facility] Comment on above: Performed By: #### B MP #### [facility] [address] [address] [address] Brittanie Burns Urea nitrogen/Creatinine [Mass ratio] 6.1 mg/mg Normal [facility] Comment on above: Performed By: #### B MP #### [facility] [address] [place] [address] Dr. Brittanie Burns PROTIMEon 10-16-2022 INR Coag (PPP) [Relative time] {INR} Normal [facility] Comment on above: Performed By: #### B 12FOL #### [facility] [address] [place] [address] Dr. Brittanie Burns INR GUIDELINES SEE BELOW Normal [facility] Comment on above: Result Comment: GINGER RED INR: 2.0 - 3.0 CONDITIONS NOT LISTED BELOW 2.5 - 3.5 FOR PROSTHETIC HEART VALVE REPLACEMENT 2.5 - 3.5 RECURRENT THROMBOSIS Performed By: #### B 12FOL #### [facility] [address] [place] [address] Dr. Brittanie Burns PT Coag (PPP) [Time] 9.8 s Normal 9.0-11.[address] [facility] Comment on above: Performed By: #### B 12FOL #### [facility] [address] [place] [address] Dr. Brittanie Burns PTTon 10-16-2022 aPTT Coag (Bld) [Time] 27.1 s Normal 22.3-36.2 Th [facility] Comment on above: Performed By: #### B 12FOL #### [facility] [address] [place] [address] Dr. Brittanie Burns SALICYLATEon 10-16-2022 SALICYLATE 7.2 mg/dL Normal <=19.[address] [facility] Comment on above: Performed By: #### L YMA #### [facility] [address] [place] [address] Dr. Brittanie Burns URINE MICROSCOPIC ONLYon BACTERIA SMALL Abnormal NONE SEEN [facility] Comment on above: Performed By: #### D RUGRPD #### [facility] [address] [place] [address] Dr. Brittanie Burns Bacteria identified Cx Nom (U) INDICATED Normal [facility] Comment on above: Performed By: #### D RUGRPD #### [facility] [address] [address] [address] Brittanie Burns CAST NONE SEEN Normal NONE SEEN [facility] Comment on above: Performed By: #### D RUGRPD #### [facility] [address] [place] [address] Dr. Brittanie Burns Crystals LM Nom (Urine sed) NONE SEEN Normal NONE SEEN [facility] Comment on above: Performed By: #### D RUGRPD #### [facility] [address] [place] [address] Dr. Brittanie Burns Epithelial cells LM Ql (Urine sed) RARE Normal NONE SEEN /RARE [facility] Comment on above: Performed By: #### D RUGRPD #### [facility] [address] [place] [address] Dr. Brittanie Burns MUCOUS NONE SEEN Normal NONE SEEN [facility] Comment on above: Performed By: #### D RUGRPD #### [facility] [address] [place] [address] Dr. Brittanie Burns RBC 2-5 Abnormal 0-[address] [facility] Comment on above: Performed By: #### D RUGRPD #### [facility] [address] [place] [address] Dr. Brittanie Burns WBC 2-5 Abnormal NONE SEEN [facility] Comment on above: Performed By: #### D RUGRPD #### [facility] [address] [place] [address] Dr. Brittanie Burns XR CHEST 1 Von 10-16-2022 XR CHEST 1 V EXAM: XR CHEST 1 V HISTORY: Acute confusion COMPARISON: 10/21/2020 TECHNIQUE: Single view of the chest FINDINGS: Heart size normal. No focal consolidation, pleural effusion, pulmonary congestion or pneumothorax. Patient is rotated. Multiple external lines. IMPRESSION: No acute findings. Electronically authenticated by: MYKEL ZELAYA Date: 2022-10-16 13:[address] [facility] Encounters Encounter Date Encounter Type Care Provider Facility Start: 12-21-2022 End: 12-21-2022 ambulatory SHAIKH Cory SALINAS Facility: Start: 11-25-2022 End: 11-26-2022 ambulatory SHAIKH Cory SALINAS Facility:[facility] Start: 11-18-2022 End: 11-18-2022 ambulatory SHAIKH Cory SALINAS Facility:[facility] Start: 10-31-2022 End: 11-01-2022 ambulatory [facility] Start: 10-31-2022 End: 10-31-2022 Subsequent hospital visit by physician Ruben Soto MD Work Phone: [facility] Start: 10-26-2022 End: 10-27-2022 ambulatory RUBEN Frazier [facility] Start: 10-26-2022 End: 10-26-2022 Subsequent hospital visit by physician Ruben Soto MD Work Phone: [facility] Start: 10-24-2022 End: 10-25-2022 ambulatory SCOUT HOLCOMB [facility] Start: 10-16-2022 End: 10-21-2022 [...] above: Performed By: #### B 12FOL #### [facility] [address] [place] [address] Dr. Brittanie Burns Start: 10-31-2022 Basic metabolic pane l calcium total Melodie Nixon MD Work Phone: Start: 10-26-2022 Lipid panel Ruben morales MD Work Phone: Plan of Treatment Date Care Activity Detail Author Start: 02-21-2023 Influenza vaccination Flu vacc ine (Season Ended) [facility] Start: 1969 DTaP/Tdap/Td vaccine (1 - Tdap) DTaP/Tdap/Td vaccine (1 - Tdap) [facility] Start: 01-08-1951 COVID-19 Vaccine (#1) COVID-19 Vacci ne (#1) [facility] Payers Date Payer Category Payer Unknown [id number] 1959 Medicaid [id number] 1959 Medicare [id number] 1950 Unknown [id number] 2.16.84 [id number] 1950 Unknown [id number] 2.16.8 [id number] 1950 Unknown [id number] 2.16.84 [id number] 1950 Unknown [id number] 2.16.84 [id number] 1950 Unknown [id number] 2.16.84 [id number] 1950 Unknown [id number] 2.16.84 [id number] 1950 Unknown [id number] 2.16.84 [id number] 1950 Unknown [id number] 2.16.84 [id number] Social History Date Type Detail Facility Tobacco smoking stat [facility] Tobacco smoking consumption unknown [facility] Work Phone: Start: 1950 Sex Assigned At Not on file [facility] Phone: Clinical Note 06-23-2022 Note Date & [...] by: KYLE DOLAN Date: 2022-06-22 23:22 [facility] Summary Purpose Family History No Family History Records FoundNo Family History Records FoundNo Family History Records Found Advance Directives No Advanced Directives Records FoundNo Advanced Directives Records FoundNo Advanced Directives Records Found Additional Source Comments (unrecognized sect ion and content) No Status Records FoundNo Status Records FoundNo Status Records Found INFORMATION SOURCE (unrecogn ized section and content) DATE CREATED AUTHOR 06/11/[address] [facility] DATE CREATED AUTHOR AUTHOR'S ORGANIZ ATION 11/01/2022 [facility] DATE CREATED AUTHOR AUTHOR'S ORGANIZ ATION 12/30/2022 [facility] Care Teams (unrecognized sec tion and content) Accounts Receivable Manager Relationship Specialty Start Date End Date Ruben Soto MD [address] [place] [address] PCP - General Psychiatry 10/24/22 FOR RECORDS [...] BE BASED ON THE PRIMARY CLINICAL RECORDS. [facility]. provides no warranty or guarantee of the accuracy or completeness of information in this document.
[2023-07-31 08:50] LABS: Basophils Percent Auto 0.2 % (0.2-2.0); Eosinophils Percent Auto 0.1 % (0.9-7.0); Hematocrit 38.2 % (42.0-54.0); Hemoglobin 11.8 g/dL (14.0-18.0); Immature Granulocytes Abs Auto 0.14 10^3/uL (0.00-0.03); Immature Granulocytes Pct Auto 0.9 % (0.0-0.5); Lymphocytes Absolute Auto 1.7 10^3/uL (1.2-3.8); Lymphocytes Percent Auto 10.9 % (20.5-60.0); Mean Corpuscular HGB Conc 30.9 g/dL (29.9-35.2); Mean Corpuscular Hemoglobin 28.3 pg (25.9-34.0); Mean Corpuscular Volume 91.6 fL (80.0-94.0); Mean Platelet Volume 10.1 fL (9.5-13.5); Monocytes Absolute Auto 1.2 10^3/uL (0.3-0.8); Monocytes Percent Auto 7.8 % (1.7-12.0); Neutrophils Absolute Auto 12.6 10^3/uL (1.4-6.5); Neutrophils Percent Auto 80.1 % (43.0-75.0); Platelet Count 571 10^3/uL (150-450); Red Blood Count 4.17 10^6/uL (4.70-6.10); Red Cell Distribution Width 14.9 % (11.0-15.0); White Blood Count 15.7 10^3/uL (4.0-11.0)
== END 2023-07-31 03:28 | disposition home or self-care (01) ==
LOC: LAB 03:27
PROVIDERS: PCP Family Medicine; Visit Provider Family Medicine
DX: A41.9 Sepsis, unspecified organism (principal)
CPT/HCPCS: 36415; 85025

== ENCOUNTER 2023-08-06 05:07 | Emergency (ER) | payer MEDICARE, MEDICAID, SELFPAY ==
[2023-08-06] VITALS (60 sets, daily range): BP systolic 66–128; BP diastolic 41–77; PULSE 0–107; RESP 9–30; TEMP 37.3; O2SAT 26–100; BMI 25.8
--- OUTSIDE RECORDS SUMMARY | 2023-08-06 05:13 | XMS_ITS | CCD ---
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 Name Role Phone REQUEST, NONE LISTED Primary Care Unavailable TD HURST Attending Unavailable TD HURST Consulting Unavailable TD HURST Admitting Unavailable [facility] Provider [phone] [facility] Primary [facility] Unavailable MELODIE NIXON Referring Unavailable [facility] Referring Unavailable GUILHERME, [facility] Primary Care Unavailable SCOUT HOLCOMB Referring Unavailable [facility] Primary Care Unavailable ULISES ., DR DELISA [...] Facility (2 sources) Propoxyphene Drug Allergy [facility] Repository (1 source) Penicillins Drug allergy (disorder) 01-30-2014 [facility] Repository Problems Active Problems Problem Classification Problem [...] 06-25-2022 Chronic Other aftercare (1 source) Other assisted (current) drug therapy; Translations: [OTH ASSISTED CURRENT DRUG THERAPY] Onset: 10-31-2022 Episodic Other [...] 12-21-2022 BASO # 0.1 103/ul Normal 0.0-0.1 [facility] Comment on above: Performed By: #### V ITB1T #### [facility] Laboratory [address] [place] [address] Dr. Brittanie Burns Basophils/100 WBC (Bld) 0.8 % Normal 0.2-2.0 [facility] Comment on above: Performed By: #### V ITB1T #### [facility] Laboratory [address] [place] [address] Dr. Brittanie Burns EO # 0.6 103/ul Normal 0.0-0.7 [facility] Comment on above: Performed By: #### V ITB1T #### [facility] Laboratory [address] [place] [address] Dr. Brittanie Burns Eosinophils/100 WBC (Bld) 6.6 % Normal 0.9-7.0 [facility] Comment on above: Performed By: #### V ITB1T #### [facility] Laboratory [address] [place] [address] Dr. Brittanie Burns Erythrocyte distribution width (RBC) [Ratio] 14.8 % Normal 11.0-15.0 [facility] Comment on above: Performed By: #### V ITB1T #### [facility] Laboratory [address] [place] [address] Dr. Brittanie Burns Hematocrit (Bld) [Volume fraction] 35.6 % Critically low 42.0-54.0 [facility] Comment on above: Performed By: #### V ITB1T #### [facility] Laboratory [address] [place] [address] Dr. Brittanie Burns Hemoglobin (Bld) [Mass/Vol] 11.7 g/dL Critically low 14.0-18.0 [facility] Comment on above: Performed By: #### V ITB1T #### [facility] Laboratory [address] [place] [address] Dr. Brittanie Burns IG # 0.04 10e3/ul Critically high 0.00-0.03 [facility] Comment on above: Performed By: #### V ITB1T #### [facility] Laboratory [address] [place] [address] Dr. Brittanie Burns IG % 0.5 % Normal 0.0-0.5 [facility] Comment on above: Performed By: #### V ITB1T #### [facility] Laboratory [address] [place] [address] Dr. Brittanie Burns LYMPH # 2.0 103/ul Normal 1.2-3.8 [facility] Comment on above: Performed By: #### V ITB1T #### [facility] Laboratory [address] [place] [address] Dr. Brittanie Burns Lymphocytes/100 WBC (Bld) 22.7 % Normal 20.5-60.0 [facility] Comment on above: Performed By: #### V ITB1T #### [facility] Laboratory [address] [place] [address] Dr. Brittanie Burns MANUAL DIFF REQ NO Normal [facility] Comment on above: Performed By: #### V ITB1T #### [facility] Laboratory [address] [place] [address] Dr. Brittanie Burns MCH (RBC) [Entitic mass] 30.8 pg Normal 25.9-34.0 [facility] Comment on above: Performed By: #### V ITB1T #### [facility] Laboratory [address] [place] [address] Dr. Brittanie Burns MCHC (RBC) [Mass/Vol] 32.9 g/dL Normal 29.9-35.2 [facility] Comment on above: Performed By: #### V ITB1T #### [facility] Laboratory [address] [place] [address] Dr. Brittanie Burns MCV (RBC) [Entitic vol] 93.7 fL Normal 80.0-94.0 [facility] Comment on above: Performed By: #### V ITB1T #### [facility] Laboratory [address] [place] [address] Dr. Brittanie Burns MONO # 1.1 103/ul Critically high 0.3-0.8 [facility] Comment on above: Performed By: #### V ITB1T #### [facility] Laboratory [address] [place] [address] Dr. Brittanie Burns Monocytes/100 WBC (Bld) 12.7 % Critically high 1.7-12.0 [facility] Comment on above: Performed By: #### V ITB1T #### [facility] Laboratory [address] [address] [address] Brittanie Burns NEUT # 4.9 103/ul Normal 1.4-6.5 [facility] Comment on above: Performed By: #### V ITB1T #### [facility] Laboratory [address] [place] [address] Dr. Brittanie Burns Neutrophils/100 WBC (Bld) 56.7 % Normal 43.0-75.0 [facility] Comment on above: Performed By: #### V ITB1T #### [facility] Laboratory [address] [place] [address] Dr. Brittanie Burns Platelet mean volume (Bld) [Entitic vol] 9.2 fL Critically low 9.5-13.5 [facility] Comment on above: Performed By: #### V ITB1T #### [facility] Laboratory [address] [place] [address] Dr. Brittanie Burns PLT 343 103/ul Normal 150-450 [facility] Comment on above: Performed By: #### V ITB1T #### [facility] Laboratory [address] [place] [address] Dr. Brittanie Burns RBC 3.80 106/ul Critically low 4.70-6.10 [facility] Comment on above: Performed By: #### V ITB1T #### [facility] Laboratory [address] [place] [address] Dr. Brittanie Burns WBC 8.7 103/ul Normal 4.0-11.0 [facility] Comment on above: Performed By: #### V ITB1T #### [facility] Laboratory [address] [place] [address] Dr. Brittanie Burns GLYCOHEMOGLOBIN A1Con 2022 ADA RECOMMENDATION SEE BELOW Normal [facility] Comment on above: Result Comment: ADA RECOMMENDED LIMIT 4.0 - 6.0 ADA THERAPEUTIC TARGET < 7.0 ACTION SUGGESTED > 7.0 Performed By: #### D RUGRPD #### [facility] Laboratory [address] [place] [address] Dr. Brittanie Burns Glucose [Mass/Vol] 117 mg/dL Normal [facility] Comment on above: Performed By: #### D RUGRPD #### [facility] Laboratory [address] [place] [address] Dr. Brittanie Burns HbA1c (Bld) [Mass fraction] 5.7 % Normal 4.5-6.2 [facility] Comment on above: Performed By: #### D RUGRPD #### [facility] Laboratory [address] [place] [address] Dr. Brittanie Burns PROF 14(COMP METB)on 023 Albumin [Mass/Vol] 2.8 g/dL Critically low 3.4-5.0 [facility] Comment on above: Performed By: #### C BC #### [facility] Laboratory [address] [place] [address] Dr. Brittanie Burns Albumin/Globulin [Mass ratio] 0.6 {ratio} Normal [facility] Comment on above: Performed By: #### C BC #### [facility] Laboratory [address] [place] [address] Dr. Brittanie Burns ALP [Catalytic activity/Vol] 68 U/L Normal 46-116 [facility] Comment on above: Performed By: #### C BC #### [facility] [address] [place] [address] Dr. Brittanie Burns ALT [Catalytic activity/Vol] 18 U/L Normal 16-63 [facility] Comment on above: Performed By: #### C BC #### [facility] Laboratory [address] [place] [address] Dr. Brittanie Burns Anion gap [Moles/Vol] 11.4 mmol/L Normal [facility] Comment on above: Performed By: #### C BC #### [facility] Laboratory [address] [place] [address] Dr. Brittanie Burns AST [Catalytic activity/Vol] 22 U/L Normal 15-37 [facility] Comment on above: Performed By: #### C BC #### [facility] Laboratory [address] [place] [address] Dr. Brittanie Burns Bilirubin [Mass/Vol] 0.3 mg/dL Normal 0.2-1.0 [facility] Comment on above: Performed By: #### C BC #### [facility] Laboratory [address] [address] [address] Brittanie Burns Calcium [Mass/Vol] 9.5 mg/dL Normal 8.5-10.1 [facility] Comment on above: Performed By: #### C BC #### [facility] [address] [address] [address] Brittanie Burns Chloride [Moles/Vol] 102 mmol/L Normal 98-107 [facility] Comment on above: Performed By: #### C BC #### [facility] [address] [address] [address] Brittanie Burns CO2 [Moles/Vol] 31.3 mmol/L Normal 21.0-32.0 [facility] Comment on above: Performed By: #### C BC #### [facility] Laboratory [address] [place] [address] Dr. Brittanie Burns Creatinine [Mass/Vol] 1.18 mg/dL Normal 0.70-1.30 [facility] Comment on above: Performed By: #### C BC #### [facility] Laboratory [address] [place] [address] Dr. Brittanie Burns EGFR-AF UZBEK >60 Normal >=60 [facility] Comment on above: Performed By: #### C BC #### [facility] [address] [place] [address] Dr. Brittanie Burns EGFR-NON AF UZBEK >60 Normal >=60 [facility] Comment on above: Performed By: #### C BC #### [facility] Laboratory [address] [place] [address] Dr. Brittanie Burns Globulin (S) [Mass/Vol] 4.9 g/dL Normal [facility] Comment on above: Performed By: #### C BC #### [facility] Laboratory [address] [place] [address] Dr. Brittanie Burns Glucose [Mass/Vol] 133 mg/dL Critically high 74-106 [facility] Comment on above: Performed By: #### C BC #### [facility] Laboratory [address] [place] [address] Dr. Brittanie Burns Potassium [Moles/Vol] 3.7 mmol/L Normal 3.5-5.1 [facility] Comment on above: Performed By: #### C BC #### [facility] [address] [address] [address] Brittanie Burns Protein [Mass/Vol] 7.7 g/dL Normal 6.4-8.2 [facility] Comment on above: Performed By: #### C BC #### [facility] [address] [address] [address] Brittanie Burns Sodium [Moles/Vol] 141 mmol/L Normal 136-145 [facility] Comment on above: Performed By: #### C BC #### [facility] Laboratory [address] [place] [address] Dr. Brittanie Burns Urea nitrogen [Mass/Vol] 25.0 mg/dL Critically high 7.0-18.0 [facility] Comment on above: Performed By: #### C BC #### [facility] Laboratory [address] [place] [address] Dr. Brittanie Burns Urea nitrogen/Creatinine [Mass ratio] 21.2 mg/mg Normal [facility] Comment on above: Performed By: #### C BC #### [facility] Laboratory [address] [place] [address] Dr. Brittanie Burns TSHon 12-21-2022 TSH 2.348 uIU/mL Normal 0.358-3.740 [facility] Comment on above: Performed By: #### B 12FOL #### [facility] Laboratory [address] [place] [address] Dr. Brittanie Burns VITAMIN D 25 OHon 12-21-2022 VIT D 25-OH 41.1 ng/mL Normal [facility] Comment on above: Performed By: #### B 12FOL #### [facility] Laboratory [address] [place] [address] Dr. Brittanie Burns VIT D RANGES SEE BELOW Normal [facility] Comment on above: Result Comment: <20 ng/mL Vit D deficient 20 - <30 ng/mL Vit D insufficient 30 - 100 ng/mL Vit D sufficient >100 ng/mL Potential Toxicity Performed By: #### B 12FOL #### [facility] Laboratory [address] [place] [address] Dr. Brtitanie Burns PROF 14(COMP METB)on 023 Albumin [Mass/Vol] 2.7 g/dL Critically low 3.4-5.0 [facility] Comment on above: Performed By: #### C BC #### [facility] Laboratory [address] [place] [address] Dr. Brittanie Burns Albumin/Globulin [Mass ratio] 0.6 {ratio} Normal [facility] Comment on above: Performed By: #### C BC #### [facility] Laboratory [address] [place] [address] Dr. Brittanie Burns ALP [Catalytic activity/Vol] 68 U/L Normal 46-116 [facility] Comment on above: Performed By: #### C BC #### [facility] Laboratory [address] [place] [address] Dr. Brittanie Burns ALT [Catalytic activity/Vol] 27 U/L Normal 16-63 [facility] Comment on above: Performed By: #### C BC #### [facility] Laboratory [address] [place] [address] Dr. Brittanie Burns Anion gap [Moles/Vol] 12.3 mmol/L Normal [facility] Comment on above: Performed By: #### C BC #### [facility] Laboratory [address] [place] [address] Dr. Brittanie Burns AST [Catalytic activity/Vol] 40 U/L Critically high 15-37 [facility] Comment on above: Performed By: #### C BC #### [facility] Laboratory [address] [place] [address] Dr. Brittanie Burns Bilirubin [Mass/Vol] 0.2 mg/dL Normal 0.2-1.0 [facility] Comment on above: Performed By: #### C BC #### [facility] Laboratory [address] [place] [address] Dr. Brittanie Burns Calcium [Mass/Vol] 10.0 mg/dL Normal 8.5-10.1 [facility] Comment on above: Performed By: #### C BC #### [facility] [address] [address] [address] Brittanie Burns Chloride [Moles/Vol] 102 mmol/L Normal 98-107 [facility] Comment on above: Performed By: #### C BC #### [facility] [address] [address] [address] Brittanie Burns CO2 [Moles/Vol] 32.2 mmol/L Critically high 21.0-32.0 [facility] Comment on above: Performed By: #### C BC #### [facility] [address] [address] [address] Brittanie Burns Creatinine [Mass/Vol] 1.09 mg/dL Normal 0.70-1.30 [facility] Comment on above: Performed By: #### C BC #### [facility] Laboratory [address] [place] [address] Dr. Brittanie Burns EGFR-AF UZBEK >60 Normal >=60 [facility] Comment on above: Performed By: #### C BC #### [facility] Laboratory [address] [place] [address] Dr. Brittanie Burns EGFR-NON AF UZBEK >60 Normal >=60 [facility] Comment on above: Performed By: #### C BC #### [facility] Laboratory [address] [place] [address] Dr. Brittanie Burns Globulin (S) [Mass/Vol] 4.9 g/dL Normal [facility] Comment on above: Performed By: #### C BC #### [facility] Laboratory [address] [place] [address] Dr. Brittanie Burns Glucose [Mass/Vol] 98 mg/dL Normal 74-106 [facility] Comment on above: Performed By: #### C BC #### [facility] Laboratory [address] [place] [address] Dr. Brittanie Burns Potassium [Moles/Vol] 4.5 mmol/L Normal 3.5-5.1 [facility] Comment on above: Performed By: #### C BC #### [facility] Laboratory [address] [place] [address] Dr. Brittanie Burns Protein [Mass/Vol] 7.6 g/dL Normal 6.4-8.2 [facility] Comment on above: Performed By: #### C BC #### [facility] [address] [address] [address] Brittanie Burns Sodium [Moles/Vol] 142 mmol/L Normal 136-145 [facility] Comment on above: Performed By: #### C BC #### [facility] Laboratory [address] [address] [address] Brittanie Burns Urea nitrogen [Mass/Vol] 26.0 mg/dL Critically high 7.0-18.0 [facility] Comment on above: Performed By: #### C BC #### [facility] [address] [address] [address] Brittanie Burns Urea nitrogen/Creatinine [Mass ratio] 23.9 mg/mg Normal [facility] Comment on above: Performed By: #### C BC #### [facility] [address] [address] [address] Brittanie Burns [facility] SED RATE 64 mm/hr Critically high <=20 [facility] Comment on above: Performed By: #### C BC #### [facility] [address] [address] [address] Brittanie Burns URIC ACID SERUMon 11-18-2022 Urate [Mass/Vol] 4.4 mg/dL Normal 3.5-7.2 [facility] Comment on above: Performed By: #### C BC #### [facility] [address] [address] [address] Brittanie Burns Basic Metabolic Panelon 10-22 Anion gap [Moles/Vol] 7 mmol/L Low 9 - 17 mmol/L [facility] Calcium [Mass/Vol] 9.8 mg/dL 8.6 - 10. 4 mg/dL [facility] Chloride [Moles/Vol] 99 mmol/L 98 - 10 7 mmol/L [facility] CO2 [Moles/Vol] 31 mmol/L 20 - 31 mmol/L [facility] Creatinine [Mass/Vol] 1.36 mg/dL High 0.70 - 1.20 mg/dL [facility] GFR/1.73 sq M.predicted MDRD (S/P/Bld) [Vol rate/Area] 55 mL/min/{1.73_m2} Low - PINF [facility] Comment on above: These results are [...] mg/dL High 70 - 99 mg/dL [facility] Interpretation and review of laboratory results Abnormal [facility] Potassium [Moles/Vol] 4.5 mmol/L 3.7 - 5.3 mmol/L [facility] Sodium [Moles/Vol] 137 mmol/L 135 - 144 mmol/L [facility] Urea nitrogen [Mass/Vol] 40 mg/dL High 8 - 23 mg/dL [facility] Urea nitrogen/Creatinine (Bld) [Mass ratio] 29 High 9 - 20 [facility] Basic Metabolic Profon 10-31 Anion gap [Moles/Vol] 7 mmol/L Low 9-17 [facility] Comment on above: Performed By: #### B MP #### [facility] [address] [place] [address] Medical Receptionist Assistant: Oscar Watkins MD BUN/CRE Ratio 29 High 9-20 [facility] Comment on above: Performed By: #### B MP #### [facility] [address] [place] [address] Medical Receptionist Assistant: Oscar Watkins MD Calcium [Mass/Vol] 9.8 mg/dL Normal 8.6-10.4 [facility] Comment on above: Performed By: #### B MP #### [facility] [address] [place] [address] Medical Receptionist Assistant: Oscar Watkins MD Chloride [Moles/Vol] 99 mmol/L Normal 98-107 [facility] Comment on above: Performed By: #### B MP #### [facility] [address] [place] [address] Medical Receptionist Assistant: Oscar Watkins MD CO2 [Moles/Vol] 31 mmol/L Normal 20-31 [facility] Comment on above: Performed By: #### B MP #### [facility] [address] [place] [address] Medical Receptionist Assistant: Oscar Watkins MD Creatinine [Mass/Vol] 1.36 mg/dL High 0.70-1.20 [facility] Comment on above: Performed By: #### B MP #### [facility] [address] [place] [address] Medical Receptionist Assistant: Oscar Watkins MD GFR/1.73 sq M.predicted among non-blacks MDRD (S/P/Bld) [Vol rate/Area] 55 mL/min/{1.73_m2} Low >60 [facility] Comment on above: Result Comment: These [...] secretion. Performed By: #### B MP #### [facility] [address] [place] [address] Medical Receptionist Assistant: Oscar Watkins MD Glucose [Mass/Vol] 114 mg/dL High 70-99 [facility] Comment on above: Performed By: #### B MP #### [facility] [address] [place] [id number] Medical Receptionist Assistant: Oscar Watkins MD Potassium [Moles/Vol] 4.5 mmol/L Normal 3.7-5.3 [facility] Comment on above: Performed By: #### B MP #### [facility] [address] [place], [place] [id number] Medical Receptionist Assistant: Oscar Watkins MD Sodium [Moles/Vol] 137 mmol/L Normal 135-144 [facility] Comment on above: Performed By: #### B MP #### [facility] [address] [place], [place] [id number] Medical Receptionist Assistant: Oscar Watkins MD Urea nitrogen [Mass/Vol] 40 mg/dL High 8- [facility] Comment on above: Performed By: #### B MP #### [facility] [address] [place], [place] [id number] Medical Receptionist Assistant: Oscar Watkins MD Lipid Panelon 10-26-2022 Cholesterol [Mass/Vol] 146 mg/dL NINF - 200 mg/dL [facility] Comment on above: Cholesterol Guidelines: <200 Desirable 200-240 Borderline >240 Undesirable Cholesterol in HDL [Mass/Vol] 24 mg/dL Low 40 - PINF mg/dL [facility] Comment on above: HDL Guidelines: <40 Undesirable 40-59 Borderline >59 Desirable Cholesterol in LDL [Mass/Vol] 97 mg/dL 0 - 130 mg/dL [facility] Comment on above: LDL Guidelines: <100 Desirable 100-129 Near to/above Desirable 130-159 Borderline >159 Undesirable Direct (measured) LDL and calculated LDL are not interchangeable tests. Cholesterol.total/Chol esterol in HDL [Mass ratio] 6.1 {ratio} High NINF - 5 [facility] Interpretation and review of laboratory results Abnormal [facility] Triglyceride [Mass/Vol] 123 mg/dL NINF - 150 mg/dL [facility] Comment on above: Triglyceride Guidelines: <150 Desirable 150-199 Borderline 200-499 High >499 Very high Based on AHA Guidelines for fasting triglyceride, April 2012. [facility] Lipid Profileon 10-26-2022 Cholesterol [Mass/Vol] 146 mg/dL Normal <200 [facility] Comment on above: Result Comment: Cholesterol Guidelines: <200 Desirable 200-240 Borderline >240 Undesirable Performed By: #### L IPR #### [facility] [place] [address] Medical Receptionist Assistant: Moo Calero MD Cholesterol in HDL [Mass/Vol] 24 mg/dL Low >40 [facility] Comment on above: Result Comment: HDL Guidelines: <40 Undesirable 40-59 Borderline >59 Desirable Performed By: #### L IPR #### [facility] [address] [place] [id number] Medical Receptionist Assistant: Moo Calero MD Cholesterol in LDL [Mass/Vol] 97 mg/dL Normal 0-130 [facility] Comment on above: Result Comment: LDL Guidelines: <100 Desirable 100-129 Near to/above Desirable 130-159 Borderline >159 Undesirable Direct (measured) LDL and calculated LDL are not interchangeable tests. Performed By: #### L IPR #### [facility] [address] [place] [id number] Medical Receptionist Assistant: Moo Calero MD Cholesterol.total/Chol esterol in HDL [Mass ratio] 6.1 {ratio} High <5 [facility] Comment on above: Performed By: #### L IPR #### [facility] [address] [place] [id number] Medical Receptionist Assistant: Moo Calero MD Triglyceride [Mass/Vol] 123 mg/dL Normal <150 [facility] Comment on above: Result Comment: Triglyceride Guidelines: <150 Desirable 150-199 Borderline 200-499 High >499 Very high Based on AHA Guidelines for fasting triglyceride, April 2012. Performed By: #### L IPR #### [facility] [address] [place] [id number] Medical Receptionist Assistant: Moo Calero MD Basic Metabolic Profon 10-24 Anion gap [Moles/Vol] 13 mmol/L Normal 9-17 [facility] Comment on above: Performed By: #### B MP #### [facility] [address] [place], [place] [phone] Medical Receptionist Assistant: Oscar Watkins MD BUN/CRE Ratio 21 High 9-20 [facility] Comment on above: Performed By: #### B MP #### [facility] [address] [place] [id number] Medical Receptionist Assistant: Oscar Watkins MD Calcium [Mass/Vol] 9.8 mg/dL Normal 8.6-10.4 [facility] Comment on above: Performed By: #### B MP #### [facility] [address] [place] [phone] Medical Receptionist Assistant: Oscar Watkins MD Chloride [Moles/Vol] 109 mmol/L High 98-107 [facility] Comment on above: Performed By: #### B MP #### [facility] [address] [place], [place] [phone] Medical Receptionist Assistant: Oscar Watkins MD CO2 [Moles/Vol] 27 mmol/L Normal 20-31 [facility] Comment on above: Performed By: #### B MP #### [facility] [address] [place], [place] [phone] Medical Receptionist Assistant: Oscar Watkins MD Creatinine [Mass/Vol] 1.68 mg/dL High 0.70-1.20 [facility] Comment on above: Performed By: #### B MP #### [facility] [address] [place], [place] [phone] Medical Receptionist Assistant: Oscar Watkins MD GFR/1.73 sq M.predicted among non-blacks MDRD (S/P/Bld) [Vol rate/Area] 43 mL/min/{1.73_m2} Low >60 [facility] Comment on above: Result Comment: These [...] secretion. Performed By: #### B MP #### [facility] [address] [place], [place] [id number] Medical Receptionist Assistant: Oscar Watkins MD Glucose [Mass/Vol] 106 mg/dL High 70-99 [facility] Comment on above: Performed By: #### B MP #### [facility] [address] [place], [place] [id number] Medical Receptionist Assistant: Oscar Watkins MD Potassium [Moles/Vol] 3.6 mmol/L Low 3.7-5.3 [facility] Comment on above: Performed By: #### B MP #### [address] [place], [place] [phone] Medical Receptionist Assistant: Oscar Watkins MD Sodium [Moles/Vol] 149 mmol/L High 135-144 [facility] Comment on above: Performed By: #### B MP #### [address] [place], [place] [phone] Medical Receptionist Assistant: Oscar Watkins MD Urea nitrogen [Mass/Vol] 35 mg/dL High 8-23 [facility] Comment on above: Performed By: #### B MP #### [facility] [address] [place] [address] Dr. [place], [place] [phone] Medical Receptionist Assistant: Oscar Watkins MD CBC AUTO DIFFon 10-21-2022 BASO # 0.1 103/ul Normal 0.0-0.1 [facility] Comment on above: Performed By: #### C BC #### [facility] [address] [place], [place] [address] Dr. Brittanie Burns Basophils/100 WBC (Bld) 0.6 % Normal 0.2-2.0 [facility] Comment on above: Performed By: #### C BC #### [facility] [address] [place] [address] Dr. Brittanie Burns EO # 0.4 103/ul Normal 0.0-0.7 [facility] Comment on above: Performed By: #### C BC #### [facility] [address] [place] [address] Dr. Brittanie Burns Eosinophils/100 WBC (Bld) 3.9 % Normal 0.9-7.0 [facility] Comment on above: Performed By: #### C BC #### [facility] [address] [place] [address] Dr. Brittanie Burns Erythrocyte distribution width (RBC) [Ratio] 13.5 % Normal 11.0-15.0 [facility] Comment on above: Performed By: #### C BC #### [facility] [address] [place] [address] Dr. Brittanie Burns Hematocrit (Bld) [Volume fraction] 38.1 % Critically low 42.0-54.0 [facility] Comment on above: Performed By: #### C BC #### [facility] [address] [place] [address] Dr. Brittanie Burns Hemoglobin (Bld) [Mass/Vol] 13.2 g/dL Critically low 14.0-18.0 [facility] Comment on above: Performed By: #### C BC #### [facility] [address] [place] [address] Dr. Brittanie Burns IG # 0.02 10e3/ul Normal 0.00-0.03 [facility] Comment on above: Performed By: #### C BC #### [facility] [address] [place] [address] Dr. Brittanie Burns IG % 0.2 % Normal 0.0-0.5 [facility] Comment on above: Performed By: #### C BC #### [facility] [address] [place] [address] Dr. Brittanie Burns LYMPH # 2.2 103/ul Normal 1.2-3.8 [facility] Comment on above: Performed By: #### C BC #### [facility] [address] [place] [address] Dr. Brittanie Burns Lymphocytes/100 WBC (Bld) 23.4 % Normal 20.5-60.0 [facility] Comment on above: Performed By: #### C BC #### [facility] [address] [place] [address] Dr. Brittanie Burns MANUAL DIFF REQ NO Normal [facility] Comment on above: Performed By: #### C BC #### [facility] [address] [place] [address] Dr. Brittanie Burns MCH (RBC) [Entitic mass] 30.6 pg Normal 25.9-34.0 [facility] Comment on above: Performed By: #### C BC #### [facility] [address] [place] [address] Dr. Brittanie Burns MCHC (RBC) [Mass/Vol] 34.6 g/dL Normal 29.9-35.2 [facility] Comment on above: Performed By: #### C BC #### [facility] [address] [place] [address] Dr. Brittanie Burns MCV (RBC) [Entitic vol] 88.2 fL Normal 80.0-94.0 [facility] Comment on above: Performed By: #### C BC #### [facility] [address] [place] [address] Dr. Brittanie Burns MONO # 1.3 103/ul Critically high 0.3-0.8 [facility] Comment on above: Performed By: #### C BC #### [facility] [address] [place] [address] Dr. Brittanie Burns Monocytes/100 WBC (Bld) 13.5 % Critically high 1.7-12.0 [facility] Comment on above: Performed By: #### C BC #### [facility] [address] [place] [address] Dr. Brittanie Burns NEUT # 5.6 103/ul Normal 1.4-6.5 [facility] Comment on above: Performed By: #### C BC #### [facility] [address] [place] [address] [address] Brittanie Burns Neutrophils/100 WBC (Bld) 58.4 % Normal 43.0-75.0 [facility] Comment on above: Performed By: #### C BC #### [facility] [address] [address] [address] Brittanie Burns Platelet mean volume (Bld) [Entitic vol] 9.3 fL Critically low 9.5-13.5 [facility] Comment on above: Performed By: #### C BC #### [facility] [address] [address] [address] Brittanie Burns PLT 297 103/ul Normal 150-450 [facility] Comment on above: Performed By: #### C BC #### [facility] [address] [address] [address] Brittanie Burns RBC 4.32 106/ul Critically low 4.70-6.10 [facility] Comment on above: Performed By: #### C BC #### [facility] [address] [address] [address] Brittanie Burns WBC 9.6 103/ul Normal 4.0-11.0 [facility] Comment on above: Performed By: #### C BC #### [facility] [address] [address] [address] Brittanie Burns CULTURE BLOODon 10-21-2022 Microscopic [...] F Trimethoprim/Sulfame thoxazole 40 S F Normal [facility] Comment on above: Performed By: #### B LDCX2 #### [facility] [address] [place] [address] Dr. Brittanie Burns PROF 14(COMP METB)on 023 Albumin [Mass/Vol] 3.1 g/dL Critically low 3.4-5.0 [facility] Comment on above: Performed By: #### D RUGRPD #### [facility] [address] [place] [address] Dr. Brittanie Burns Albumin/Globulin [Mass ratio] 0.8 {ratio} Normal [facility] Comment on above: Performed By: #### D RUGRPD #### [facility] [address] [place] [address] Dr. Brittanie Burns ALP [Catalytic activity/Vol] 76 U/L Normal 46-116 [facility] Comment on above: Performed By: #### D RUGRPD #### [facility] [address] [place] [address] Dr. Brittanie Burns ALT [Catalytic activity/Vol] 16 U/L Normal 16-63 [facility] Comment on above: Performed By: #### D RUGRPD #### [facility] [address] [place] [address] Dr. Brittanie Burns Anion gap [Moles/Vol] 13.5 mmol/L Normal Th [facility] Comment on above: Performed By: #### D RUGRPD #### [facility] [address] [place] [address] Dr. Brittanie Burns AST [Catalytic activity/Vol] 14 U/L Critically low 15-37 [facility] Comment on above: Performed By: #### D RUGRPD #### [facility] [address] [place] [address] Dr. Brittanie Burns Bilirubin [Mass/Vol] 0.6 mg/dL Normal 0.2-1.0 [facility] Comment on above: Performed By: #### D RUGRPD #### [facility] [address] [place] [address] Dr. Brittanie Burns Calcium [Mass/Vol] 8.9 mg/dL Normal 8.5-10.1 [facility] Comment on above: Performed By: #### D RUGRPD #### [facility] [address] [address] [address] Brittanie Burns Chloride [Moles/Vol] 107 mmol/L Normal 98-107 [facility] Comment on above: Performed By: #### D RUGRPD #### [facility] [address] [address] [address] Brittanie Burns CO2 [Moles/Vol] 26.9 mmol/L Normal 21.0-32.0 [facility] Comment on above: Performed By: #### D RUGRPD #### [facility] [address] [place] [address] Dr. Brittanie Burns Creatinine [Mass/Vol] 2.02 mg/dL Critically high 0.70-1.30 [facility] Comment on above: Performed By: #### D RUGRPD #### [facility] [address] [place] [address] Dr. Britatnie Burns EGFR-AF UZBEK 40 mL/min/1.73m2 Critically low >=60 [facility] Comment on above: Performed By: #### D RUGRPD #### [facility] [address] [place] [address] Dr. Brittanie Burns EGFR-NON AF UZBEK 33 mL/min/1.73m2 Critically low >=60 [facility] Comment on above: Performed By: #### D RUGRPD #### [facility] [address] [place] [address] Dr. Brittanie Burns Globulin (S) [Mass/Vol] 3.7 g/dL Normal [facility] Comment on above: Performed By: #### D RUGRPD #### [facility] [address] [place] [address] Dr. Brittanie Burns Glucose [Mass/Vol] 95 mg/dL Normal 74-106 [facility] Comment on above: Performed By: #### D RUGRPD #### [facility] [address] [address] [address] Brittanie Burns Potassium [Moles/Vol] 3.4 mmol/L Critically low 3.5-5.1 [facility] Comment on above: Performed By: #### D RUGRPD #### [facility] [address] [place] [address] Dr. Brittanie Burns Protein [Mass/Vol] 6.8 g/dL Normal 6.4-8.2 [facility] Comment on above: Performed By: #### D RUGRPD #### [facility] [address] [place] [address] Dr. Brittanie Burns Sodium [Moles/Vol] 144 mmol/L Normal 136-145 [facility] Comment on above: Performed By: #### D RUGRPD #### [facility] [address] [place] [address] Dr. Brittanie Burns Urea nitrogen [Mass/Vol] 25.0 mg/dL Critically high 7.0-18.0 [facility] Comment on above: Performed By: #### D RUGRPD #### [facility] [address] [place] [address] Dr. Brittanie Burns Urea nitrogen/Creatinine [Mass ratio] 12.4 mg/mg Normal [facility] Comment on above: Performed By: #### D RUGRPD #### [facility] [address] [place] [address] Dr. Brittanie Burns CBC AUTO DIFFon 10-20-2022 BASO # 0.1 103/ul Normal 0.0-0.1 [facility] Comment on above: Performed By: #### D RUGRPD #### [facility] [address] [place] [address] Dr. Brittanie Burns Basophils/100 WBC (Bld) 0.7 % Normal 0.2-2.0 [facility] Comment on above: Performed By: #### D RUGRPD #### [facility] [address] [place] [address] Dr. Brittanie Burns EO # 0.3 103/ul Normal 0.0-0.7 [facility] Comment on above: Performed By: #### D RUGRPD #### [facility] [address] [address] [address] Brittanie Burns Eosinophils/100 WBC (Bld) 2.7 % Normal 0.9-7.0 [facility] Comment on above: Performed By: #### D RUGRPD #### [facility] [address] [place] [address] Dr. Brittanie Burns Erythrocyte distribution width (RBC) [Ratio] 13.4 % Normal 11.0-15.0 [facility] Comment on above: Performed By: #### D RUGRPD #### [facility] [address] [place] [address] Dr. Brittanie Burns Hematocrit (Bld) [Volume fraction] 39.2 % Critically low 42.0-54.0 [facility] Comment on above: Performed By: #### D RUGRPD #### [facility] [address] [place] [address] Dr. Brittanie Burns Hemoglobin (Bld) [Mass/Vol] 13.7 g/dL Critically low 14.0-18.0 [facility] Comment on above: Performed By: #### D RUGRPD #### [facility] [address] [place] [address] Dr. Brittanie Burns IG # 0.04 10e3/ul Critically high 0.00-0.03 [facility] Comment on above: Performed By: #### D RUGRPD #### [facility] [address] [place] [address] Dr. Brittanie Burns IG % 0.4 % Normal 0.0-0.5 [facility] Comment on above: Performed By: #### D RUGRPD #### [facility] [address] [place] [address] Dr. Brittanie Burns LYMPH # 2.0 103/ul Normal 1.2-3.8 [facility] Comment on above: Performed By: #### D RUGRPD #### [facility] [address] [place] [address] Dr. Brittanie Burns Lymphocytes/100 WBC (Bld) 19.9 % Critically low 20.5-60.0 [facility] Comment on above: Performed By: #### D RUGRPD #### [facility] [address] [place] [address] Dr. Brittanie Burns MANUAL DIFF REQ NO Normal [facility] Comment on above: Performed By: #### D RUGRPD #### [facility] [address] [place] [address] Dr. Brittanie Burns MCH (RBC) [Entitic mass] 30.7 pg Normal 25.9-34.0 [facility] Comment on above: Performed By: #### D RUGRPD #### [facility] [address] [place] [address] Dr. Brittanie Burns MCHC (RBC) [Mass/Vol] 34.9 g/dL Normal 29.9-35.2 [facility] Comment on above: Performed By: #### D RUGRPD #### [facility] [address] [place] [address] Dr. Brittanie Burns MCV (RBC) [Entitic vol] 87.9 fL Normal 80.0-94.0 [facility] Comment on above: Performed By: #### D RUGRPD #### [facility] [address] [place] [address] Dr. Brittanie Burns MONO # 1.5 103/ul Critically high 0.3-0.8 [facility] Comment on above: Performed By: #### D RUGRPD #### [facility] [address] [place] [address] Dr. Brittanie Burns Monocytes/100 WBC (Bld) 14.4 % Critically high 1.7-12.0 [facility] Comment on above: Performed By: #### D RUGRPD #### [facility] [address] [place] [address] Dr. Brittanie Burns NEUT # 6.3 103/ul Normal 1.4-6.5 [facility] Comment on above: Performed By: #### D RUGRPD #### [facility] [address] [place] [address] Dr. Brittanie Burns Neutrophils/100 WBC (Bld) 61.9 % Normal 43.0-75.0 [facility] Comment on above: Performed By: #### D RUGRPD #### [facility] [address] [place] [address] Dr. Brittanie Burns Platelet mean volume (Bld) [Entitic vol] 10.0 fL Normal 9.5-13.5 [facility] Comment on above: Performed By: #### D RUGRPD #### [facility] [address] [place] [address] Dr. Brittanie Burns PLT 305 103/ul Normal 150-450 [facility] Comment on above: Performed By: #### D RUGRPD #### [facility] [address] [place] [address] Dr. Brittanie Burns RBC 4.46 106/ul Critically low 4.70-6.10 [facility] Comment on above: Performed By: #### D RUGRPD #### [facility] [address] [place] [address] Dr. Brittanie Burns WBC 10.2 103/ul Normal 4.0-11.0 [facility] Comment on above: Performed By: #### D RUGRPD #### [facility] [address] [place] [address] Dr. Brittanie Burns PROF 14(COMP METB)on 023 Albumin [Mass/Vol] 3.4 g/dL Normal 3.4-5.0 [facility] Comment on above: Performed By: #### L YMA #### [facility] [address] [place] [address] Dr. Brittanie Burns Albumin/Globulin [Mass ratio] 0.8 {ratio} Normal [facility] Comment on above: Performed By: #### L YMA #### [facility] [address] [place] [address] Dr. Brittanie Burns ALP [Catalytic activity/Vol] 83 U/L Normal 46-116 [facility] Comment on above: Performed By: #### L YMA #### [facility] [address] [place] [address] Dr. Brittanie Burns ALT [Catalytic activity/Vol] 14 U/L Critically low 16-63 [facility] Comment on above: Performed By: #### L YMA #### [facility] [address] [place] [address] Dr. Brittanie Burns Anion gap [Moles/Vol] 16.0 mmol/L Normal Th e [facility] Comment on above: Performed By: #### L YMA #### [facility] [address] [address] [address] rBittanie Burns AST [Catalytic activity/Vol] 14 U/L Critically low 15-37 [facility] Comment on above: Performed By: #### L YMA #### [facility] [address] [place] [address] Dr. Brittanie Burns Bilirubin [Mass/Vol] 0.5 mg/dL Normal 0.2-1.0 [facility] Comment on above: Performed By: #### L YMA #### [facility] [address] [place] [address] Dr. Brittanie Burns Calcium [Mass/Vol] 9.0 mg/dL Normal 8.5-10.1 [facility] Comment on above: Performed By: #### L YMA #### [facility] [address] [place] [address] Dr. Britatnie Burns Chloride [Moles/Vol] 103 mmol/L Normal 98-107 [facility] Comment on above: Performed By: #### L YMA #### [facility] [address] [place] [address] Dr. Brittanie Burns CO2 [Moles/Vol] 24.5 mmol/L Normal 21.0-32.0 [facility] Comment on above: Performed By: #### L YMA #### [facility] [address] [place] [address] Dr. Brittanie Burns Creatinine [Mass/Vol] 2.67 mg/dL Critically high 0.70-1.30 [facility] Comment on above: Performed By: #### L YMA #### [facility] [address] [place] [address] Dr. Brittanie Burns EGFR-AF UZBEK 29 mL/min/1.73m2 Critically low >=60 [facility] Comment on above: Performed By: #### L YMA #### [facility] [address] [address] [address] Brittanie Burns EGFR-NON AF UZBEK 24 mL/min/1.73m2 Critically low >=60 [facility] Comment on above: Performed By: #### L YMA #### [facility] [address] [address] [address] Brittanie Burns Globulin (S) [Mass/Vol] 4.2 g/dL Normal [facility] Comment on above: Performed By: #### L YMA #### [facility] [address] [address] [address] Brittanie Burns Glucose [Mass/Vol] 131 mg/dL Critically high 74-106 T [facility] Comment on above: Performed By: #### L YMA #### [facility] [address] [address] [address] Brittanie Burns Potassium [Moles/Vol] 3.5 mmol/L Normal 3.5-5.1 [facility] Comment on above: Performed By: #### L YMA #### [facility] [address] [place] [address] Dr. Brittanie Burns Protein [Mass/Vol] 7.6 g/dL Normal 6.4-8.2 [facility] Comment on above: Performed By: #### L YMA #### [facility] [address] [address] [address] Brittanie Burns Sodium [Moles/Vol] 140 mmol/L Normal 136-145 [facility] Comment on above: Performed By: #### L YMA #### [facility] [address] [address] [address] Brittanie Burns Urea nitrogen [Mass/Vol] 33.0 mg/dL Critically high 7.0-18.0 [facility] Comment on above: Performed By: #### L YMA #### [facility] [address] [address] [address] Brittanie Burns Urea nitrogen/Creatinine [Mass ratio] 12.4 mg/mg Normal [facility] Comment on above: Performed By: #### L YMA #### [facility] [address] [place] [address] Dr. Brittanie Burns VITAMIN B1 (THIAMINE)on 09-23 Vit. B1, Whole Blood 133.7 nmol/L Normal 66.5-200.0 Th e [facility] Comment on above: Performed By: #### V [id number] #### [facility] [address] [place] [address] Dr. Brittanie Burns CBC W MANUAL DIFFon 10-20-19 23 ATYPICAL LYMPH # Normal [facility] Comment on above: Performed By: #### C BC #### [facility] [address] [place] [address] Dr. Brittanie Burns ATYPICAL LYMPH % Normal [facility] Comment on above: Performed By: #### C BC #### [facility] [address] [place] [address] Dr. Brittanie Burns BAND # Normal 0.0-0.3 [facility] Comment on above: Performed By: #### C BC #### [facility] [address] [place] [address] Dr. Brittanie HUGGINS % Normal 0-5 [facility] Comment on above: Performed By: #### C BC #### [facility] [address] [place] [address] Dr. Brittanie Burns BASOM # 0.34 103/ul Critically high 0.00-0.10 [facility] Comment on above: Performed By: #### C BC #### [facility] [address] [place] [address] Dr. Brittanie Burns BASOM % 3.0 % Critically high 0.2-2.0 [facility] Comment on above: Performed By: #### C BC #### [facility] [address] [place] [address] Dr. Brittanie Burns BLAST # Normal [facility] Comment on above: Performed By: #### C BC #### [facility] [address] [place] [address] Dr. Brittanie Burns BLAST % Normal [facility] Comment on above: Performed By: #### C BC #### [facility] [address] [place] [address] Dr. Brittanie Burns CORRECTED WBC Normal 4.0-11.0 [facility] Comment on above: Performed By: #### C BC #### [facility] [address] [address] [address] Brittanie Burns EOS # 0.22 103/ul Normal 0.00-0.70 [facility] Comment on above: Performed By: #### C BC #### [facility] [address] [place] [address] Dr. Brittanie Burns EOS% 2.0 % Normal 0.9-7.0 [facility] Comment on above: Performed By: #### C BC #### [facility] [address] [place] [address] Dr. Brittanie Burns HCT 35.2 % Critically low 42.0-54.0 [facility] Comment on above: Performed By: #### C BC #### [facility] [address] [place] [address] Dr. Brittanie Burns HGB 12.2 g/dl Critically low 14.0-18.0 [facility] Comment on above: Performed By: #### C BC #### [facility] [address] [place] [address] Dr. Brittanie Burns LYMPHM # 1.90 103/ul Normal 1.20-3.80 [facility] Comment on above: Performed By: #### C BC #### [facility] [address] [place] [address] Dr. Brittanie Burns LYMPHM% 17.0 % Critically low 20.5-60.0 [facility] Comment on above: Performed By: #### C BC #### [facility] [address] [place] [address] Dr. Brittanie Burns MCH 30.7 pg Normal 25.9-34.0 [facility] Comment on above: Performed By: #### C BC #### [facility] [address] [place] [address] Dr. Brittanie Burns MCHC 34.7 g/dl Normal 29.9-35.2 [facility] Comment on above: Performed By: #### C BC #### [facility] [address] [place] [address] Dr. Brittanie Burns MCV 88.4 fL Normal 80.0-94.0 [facility] Comment on above: Performed By: #### C BC #### [facility] [address] [place] [address] Dr. Brittanie Burns METAMYELOCYTE # Normal [facility] Comment on above: Performed By: #### C BC #### [facility] [address] [place] [address] Dr. Brittanie Burns METAMYELOCYTE % Normal [facility] Comment on above: Performed By: #### C BC #### [facility] [address] [place] [address] Dr. Brittanie Burns MONOM# 0.67 103/ul Normal 0.30-0.80 [facility] Comment on above: Performed By: #### C BC #### [facility] [address] [place] [address] Dr. Brittanie Burns MONOM% 6.0 % Normal 1.7-12.0 [facility] Comment on above: Performed By: #### C BC #### [facility] [address] [place] [address] Dr. Brittanie Burns MPV 9.9 fL Normal 9.5-13.5 [facility] Comment on above: Performed By: #### C BC #### [facility] [address] [place] [address] Dr. Brittanie Burns MYELOCYTE # Normal [facility] Comment on above: Performed By: #### C BC #### [facility] [address] [place] [address] Dr. Brittanie Burns MYELOCYTE % Normal [facility] Comment on above: Performed By: #### C BC #### [facility] [address] [place] [address] Dr. Brittanie Burns NRBC Normal [facility] Comment on above: Performed By: #### C BC #### [facility] [address] [address] [address] Brittanie Burns PLT 267 103/ul Normal 150-450 [facility] Comment on above: Performed By: #### C BC #### [facility] [address] [place] [address] Dr. Brittanie Burns RBC 3.98 106/ul Critically low 4.70-6.10 [facility] Comment on above: Performed By: #### C BC #### [facility] [address] [place] [address] Dr. Brittanie Burns RDW 13.4 % Normal 11.0-15.0 [facility] Comment on above: Performed By: #### C BC #### [facility] [address] [place] [address] Dr. Brittanie Burns SEG # 8.06 103/ul Critically high 1.40-6.50 [facility] Comment on above: Performed By: #### C BC #### [facility] [address] [place] [address] Dr. Brittanie Burns SEG % 72.0 % Normal 43.0-75.0 [facility] Comment on above: Performed By: #### C BC #### [facility] [address] [place] [address] Dr. Brittanie Burns WBC 11.2 103/ul Critically high 4.0-11.0 [facility] Comment on above: Performed By: #### C BC #### [facility] [address] [place] [address] Dr. Brittanie Burns CULTURE BLOODon 10-19-2022 Microscopic examination of blood, culture Culture Observations: NO GROWTH AT 5 DAYS. Normal [facility] Comment on above: Performed By: #### B [id number] #### [facility] [address] [place] [address] Dr. Brittanie Burns ECHOCARDIO M/2D COMPLETEon 0 10-19-2022 ECHOCARDIO M/2D COMPLETE Patient: SHELBY VALERIO Matt Exam Date: 10/19/2022 : 1950 Gender:M Ordering : SHAIKH Manav SALINAS . Admission #: [id number] Family : Order #: [id number] CLICK HERE TO VIEW EXAM ECHOCARDIOGRAM REPORT [...] Left Atrium LA Volume Index (2D A2C): 06013 mm3 Left Atrium Systolic Dimension: 2.20 cm [...] Pedroza M.D. on 10/19/2022 at 14:32 Normal [facility] PROF 14(COMP METB)on 023 Albumin [Mass/Vol] 2.8 g/dL Critically low 3.4-5.0 [facility] Comment on above: Performed By: #### L YMA #### [facility] [address] [place] [address] Dr. Brittanie Burns Albumin/Globulin [Mass ratio] 0.8 {ratio} Normal [facility] Comment on above: Performed By: #### L YMA #### [facility] [address] [place] [address] Dr. Brittanie Burns ALP [Catalytic activity/Vol] 72 U/L Normal 46-116 [facility] Comment on above: Performed By: #### L YMA #### [facility] [address] [place] [address] Dr. Brittanie Burns ALT [Catalytic activity/Vol] 12 U/L Critically low 16-63 [facility] Comment on above: Performed By: #### L YMA #### [facility] [address] [place] [address] Dr. Brittanie Burns Anion gap [Moles/Vol] 15.7 mmol/L Normal [facility] Comment on above: Performed By: #### L YMA #### [facility] [address] [place] [address] Dr. Brittanie Burns AST [Catalytic activity/Vol] 12 U/L Critically low 15-37 [facility] Comment on above: Performed By: #### L YMA #### [facility] [address] [place] [address] Dr. Brittanie Burns Bilirubin [Mass/Vol] 0.5 mg/dL Normal 0.2-1.0 [facility] Comment on above: Performed By: #### L YMA #### [facility] [address] [address] [address] Brittanie Burns Calcium [Mass/Vol] 8.7 mg/dL Normal 8.5-10.1 [facility] Comment on above: Performed By: #### L YMA #### [facility] [address] [address] [address] Brittanie Burns Chloride [Moles/Vol] 107 mmol/L Normal 98-107 [facility] Comment on above: Performed By: #### L YMA #### [facility] [address] [address] [address] Brittanie Burns CO2 [Moles/Vol] 23.0 mmol/L Normal 21.0-32.0 [facility] Comment on above: Performed By: #### L YMA #### [facility] [address] [address] [address] Brittanei Burns Creatinine [Mass/Vol] 3.79 mg/dL Critically high 0.70-1.30 [facility] Comment on above: Performed By: #### L YMA #### [facility] [address] [place] [address] Dr. Brittanie Burns EGFR-AF UZBEK 19 mL/min/1.73m2 Critically low >=60 [facility] Comment on above: Performed By: #### L YMA #### [facility] [address] [address] [address] Brittanie Burns EGFR-NON AF UZBEK 16 mL/min/1.73m2 Critically low >=60 [facility] Comment on above: Performed By: #### L YMA #### [facility] [address] [address] [address] Brittanie Burns Globulin (S) [Mass/Vol] 3.5 g/dL Normal [facility] Comment on above: Performed By: #### L YMA #### [facility] [address] [address] [address] Brittanie Burns Glucose [Mass/Vol] 75 mg/dL Normal 74-106 [facility] Comment on above: Performed By: #### L YMA #### [facility] [address] [address] [address] Brittanie Burns Potassium [Moles/Vol] 3.7 mmol/L Normal 3.5-5.1 [facility] Comment on above: Performed By: #### L YMA #### [facility] [address] [address] [address] Brittanie Burns Protein [Mass/Vol] 6.3 g/dL Critically low 6.4-8.2 [facility] Comment on above: Performed By: #### L YMA #### [facility] [address] [place] [address] Dr. Brittanie Burns Sodium [Moles/Vol] 142 mmol/L Normal 136-145 [facility] Comment on above: Performed By: #### L YMA #### [facility] [address] [place] [address] Dr. Brittanie Burns Urea nitrogen [Mass/Vol] 40.0 mg/dL Critically high 7.0-18.0 [facility] Comment on above: Performed By: #### L YMA #### [facility] [address] [place] [address] Dr. Brittanie Burns Urea nitrogen/Creatinine [Mass ratio] 10.6 mg/mg Normal [facility] Comment on above: Performed By: #### L YMA #### [facility] [address] [place] [address] Dr. Brittanie Burns VANCOMYCIN TROUGHon 10-20-19 VANCOMYCIN TROUGH 7.0 ug/ml Normal 5.0-20.0 [facility] Comment on above: Performed By: #### B [id number] #### [facility] [address] [place] [address] Dr. Brittanie Burns CBC AUTO DIFFon 10-18-2022 BASO # 0.1 103/ul Normal 0.0-0.1 [facility] Comment on above: Performed By: #### C BC #### [facility] [address] [address] [address] Brittanie Burns Basophils/100 WBC (Bld) 0.6 % Normal 0.2-2.0 [facility] Comment on above: Performed By: #### C BC #### [facility] [address] [place] [address] Dr. Brittanie Burns EO # 0.1 103/ul Normal 0.0-0.7 [facility] Comment on above: Performed By: #### C BC #### [facility] [address] [place] [address] Dr. Brittanie Burns Eosinophils/100 WBC (Bld) 1.0 % Normal 0.9-7.0 [facility] Comment on above: Performed By: #### C BC #### [facility] [address] [place] [address] Dr. Brittanie Burns Erythrocyte distribution width (RBC) [Ratio] 13.7 % Normal 11.0-15.0 [facility] Comment on above: Performed By: #### C BC #### [facility] [address] [place] [address] Dr. Brittanie Burns Hematocrit (Bld) [Volume fraction] 33.5 % Critically low 42.0-54.0 [facility] Comment on above: Performed By: #### C BC #### [facility] [address] [place] [address] Dr. Brittanie Burns Hemoglobin (Bld) [Mass/Vol] 11.2 g/dL Critically low 14.0-18.0 [facility] Comment on above: Performed By: #### C BC #### [facility] [address] [place] [address] Dr. Brittanie Burns IG # 0.04 10e3/ul Critically high 0.00-0.03 [facility] Comment on above: Performed By: #### C BC #### [facility] [address] [place] [address] Dr. Brittanie Burns IG % 0.3 % Normal 0.0-0.5 [facility] Comment on above: Performed By: #### C BC #### [facility] [address] [address] [address] Brittanie Burns LYMPH # 1.8 103/ul Normal 1.2-3.8 [facility] Comment on above: Performed By: #### C BC #### [facility] [address] [address] [address] Brittanie uBrns Lymphocytes/100 WBC (Bld) 15.4 % Critically low 20.5-60.0 [facility] Comment on above: Performed By: #### C BC #### [facility] [address] [place] [address] Dr. Brittanie Burns MANUAL DIFF REQ NO Normal [facility] Comment on above: Performed By: #### C BC #### [facility] [address] [place] [address] Dr. Brittanie Burns MCH (RBC) [Entitic mass] 30.2 pg Normal 25.9-34.0 [facility] Comment on above: Performed By: #### C BC #### [facility] [address] [place] [address] Dr. Brittanie Burns MCHC (RBC) [Mass/Vol] 33.4 g/dL Normal 29.9-35.2 [facility] Comment on above: Performed By: #### C BC #### [facility] [address] [place] [address] Dr. Brittanie Burns MCV (RBC) [Entitic vol] 90.3 fL Normal 80.0-94.0 [facility] Comment on above: Performed By: #### C BC #### [facility] [address] [place] [address] Dr. Brittanie Burns MONO # 1.3 103/ul Critically high 0.3-0.8 [facility] Comment on above: Performed By: #### C BC #### [facility] [address] [place] [address] Dr. Brittanie Burns Monocytes/100 WBC (Bld) 10.7 % Normal 1.7-12.0 [facility] Comment on above: Performed By: #### C BC #### [facility] [address] [address] [address] Brittanie Burns NEUT # 8.5 103/ul Critically high 1.4-6.5 [facility] Comment on above: Performed By: #### C BC #### [facility] [address] [id number] Brittanie Burns Neutrophils/100 WBC (Bld) 72.0 % Normal 43.0-75.0 [facility] Comment on above: Performed By: #### C BC #### [facility] [address] [address] [address] Brtitanie Burns Platelet mean volume (Bld) [Entitic vol] 9.4 fL Critically low 9.5-13.5 [facility] Comment on above: Performed By: #### C BC #### [facility] [address] [address] [address] Brittanie Burns PLT 241 103/ul Normal 150-450 [facility] Comment on above: Performed By: #### C BC #### [facility] [address] [place] [address] Dr. Brittanie Burns RBC 3.71 106/ul Critically low 4.70-6.10 [facility] Comment on above: Performed By: #### C BC #### [facility] [address] [id number] Brittanie Burns WBC 11.8 103/ul Critically high 4.0-11.0 [facility] Comment on above: Performed By: #### C BC #### [facility] [id number] Brittanie Burns LYME DISEASE AB EIA W REFLEX on 10-18-2022 Lyme Total Antibody,EIA Negative Normal Negative [facility] Comment on above: Result Comment: Lyme antibodies [...] recommended. Performed By: #### L YMA #### [facility] [address] [address] [address] Brittanie Burns PROF 14(COMP METB)on 023 Albumin [Mass/Vol] 3.1 g/dL Critically low 3.4-5.0 [facility] Comment on above: Performed By: #### L YMA #### [facility] [address] [place] [address] Dr. Brittanie Burns Albumin/Globulin [Mass ratio] 1.2 {ratio} Normal [facility] Comment on above: Performed By: #### L YMA #### [facility] [address] [place] [address] Dr. Brittanie Burns ALP [Catalytic activity/Vol] 74 U/L Normal 46-116 [facility] Comment on above: Performed By: #### L YMA #### [facility] [address] [place] [address] Dr. Brittanie Burns ALT [Catalytic activity/Vol] 13 U/L Critically low 16-63 [facility] Comment on above: Performed By: #### L YMA #### [facility] [address] [place] [address] Dr. Brittanie Burns Anion gap [Moles/Vol] 17.6 mmol/L Normal [facility] Comment on above: Performed By: #### L YMA #### [facility] [address] [place] [address] Dr. Brittanie Burns AST [Catalytic activity/Vol] 15 U/L Normal 15-37 [facility] Comment on above: Performed By: #### L YMA #### [facility] [address] [place] [address] Dr. Brittanie Burns Bilirubin [Mass/Vol] 0.5 mg/dL Normal 0.2-1.0 [facility] Comment on above: Performed By: #### L YMA #### [facility] [address] [place] [address] Dr. Brittanie Burns Calcium [Mass/Vol] 8.6 mg/dL Normal 8.5-10.1 [facility] Comment on above: Performed By: #### L YMA #### [facility] [address] [address] [address] Brittanie Burns Chloride [Moles/Vol] 107 mmol/L Normal 98-107 [facility] Comment on above: Performed By: #### L YMA #### [facility] [address] [address] [address] Brittanie Burns CO2 [Moles/Vol] 21.1 mmol/L Normal 21.0-32.0 [facility] Comment on above: Performed By: #### L YMA #### [facility] [address] [address] [address] Brittanie Burns Creatinine [Mass/Vol] 5.64 mg/dL Critically high 0.70-1.30 [facility] Comment on above: Performed By: #### L YMA #### [facility] [address] [address] [address] Brittanie Burns EGFR-AF UZBEK 12 mL/min/1.73m2 Critically low >=60 [facility] Comment on above: Performed By: #### L YMA #### [facility] [address] [address] [address] Brittanie Burns EGFR-NON AF UZBEK 10 mL/min/1.73m2 Critically low >=60 [facility] Comment on above: Performed By: #### L YMA #### [facility] [address] [address] [address] Brittanie Burns Globulin (S) [Mass/Vol] 2.6 g/dL Normal [facility] Comment on above: Performed By: #### L YMA #### [facility] [address] [address] [address] Brittanie Burns Glucose [Mass/Vol] 75 mg/dL Normal 74-106 [facility] Comment on above: Performed By: #### L YMA #### [facility] [address] [address] [address] Brittanie Burns Potassium [Moles/Vol] 4.7 mmol/L Normal 3.5-5.1 [facility] Comment on above: Performed By: #### L YMA #### [facility] [address] [place] [address] Dr. Brittanie Burns Protein [Mass/Vol] 5.7 g/dL Critically low 6.4-8.2 [facility] Comment on above: Performed By: #### L YMA #### [facility] [address] [place] [address] Dr. Brittanie Burns Sodium [Moles/Vol] 141 mmol/L Normal 136-145 [facility] Comment on above: Performed By: #### L YMA #### [facility] [address] [place] [address] Dr. Brittanie Burns Urea nitrogen [Mass/Vol] 44.0 mg/dL Critically high 7.0-18.0 [facility] Comment on above: Performed By: #### L YMA #### [facility] [address] [place] [address] Dr. Brittanie Burns Urea nitrogen/Creatinine [Mass ratio] 7.8 mg/mg Normal [facility] Comment on above: Performed By: #### L YMA #### [facility] [address] [place] [address] Dr. Brittanie Burns RPR QUAL REFLEX TO QUANTon 0 10-18-2022 Rapid Plasma Reagin, Qual Non-Reactive Normal Non Reactive [facility] Comment on above: Performed By: #### V ITB1T #### [facility] [address] [place] [address] Dr. Brittanie Burns CBC AUTO DIFFon 10-17-2022 BASO # 0.0 103/ul Normal 0.0-0.1 [facility] Comment on above: Performed By: #### C BC #### [facility] [address] [place] [address] Dr. Brittanie Burns Basophils/100 WBC (Bld) 0.3 % Normal 0.2-2.0 [facility] Comment on above: Performed By: #### C BC #### [facility] [address] [place] [address] Dr. Brittanie Burns EO # 0.0 103/ul Normal 0.0-0.7 [facility] Comment on above: Performed By: #### C BC #### [facility] [address] [place] [address] Dr. Brittanie Burns Eosinophils/100 WBC (Bld) 0.1 % Critically low 0.9-7.0 [facility] Comment on above: Performed By: #### C BC #### [facility] [address] [place] [address] Dr. Brittanie Burns Erythrocyte distribution width (RBC) [Ratio] 13.7 % Normal 11.0-15.0 [facility] Comment on above: Performed By: #### C BC #### [facility] [address] [place] [address] Dr. Brittanie Burns Hematocrit (Bld) [Volume fraction] 34.2 % Critically low 42.0-54.0 [facility] Comment on above: Performed By: #### C BC #### [facility] [address] [place] [address] Dr. Brittanie Burns Hemoglobin (Bld) [Mass/Vol] 11.6 g/dL Critically low 14.0-18.0 [facility] Comment on above: Performed By: #### C BC #### [facility] [address] [place] [address] Dr. Brittanie Burns IG # 0.06 10e3/ul Critically high 0.00-0.03 [facility] Comment on above: Performed By: #### C BC #### [facility] [address] [place] [address] Dr. Brittanie Burns IG % 0.4 % Normal 0.0-0.5 [facility] Comment on above: Performed By: #### C BC #### [facility] [address] [place] [address] Dr. Brittanie Burns LYMPH # 1.4 103/ul Normal 1.2-3.8 [facility] Comment on above: Performed By: #### C BC #### [facility] [address] [place] [address] Dr. Brittanie Burns Lymphocytes/100 WBC (Bld) 10.4 % Critically low 20.5-60.0 [facility] Comment on above: Performed By: #### C BC #### [facility] [address] [place] [address] Dr. Brittanie Burns MANUAL DIFF REQ NO Normal [facility] Comment on above: Performed By: #### C BC #### [facility] [address] [place] [address] Dr. Brittanie Burns MCH (RBC) [Entitic mass] 30.9 pg Normal 25.9-34.0 [facility] Comment on above: Performed By: #### C BC #### [facility] [address] [place] [address] Dr. Brittanie Burns MCHC (RBC) [Mass/Vol] 33.9 g/dL Normal 29.9-35.2 [facility] Comment on above: Performed By: #### C BC #### [facility] [address] [place] [address] Dr. Brittanie Burns MCV (RBC) [Entitic vol] 91.0 fL Normal 80.0-94.0 [facility] Comment on above: Performed By: #### C BC #### [facility] [address] [place] [address] Dr. Brittanie Burns MONO # 1.4 103/ul Critically high 0.3-0.8 [facility] Comment on above: Performed By: #### C BC #### [facility] [address] [place] [address] Dr. Brittanie Burns Monocytes/100 WBC (Bld) 10.3 % Normal 1.7-12.0 [facility] Comment on above: Performed By: #### C BC #### [facility] [address] [place] [address] Dr. Brittanie Burns NEUT # 10.5 103/ul Critically high 1.4-6.5 [facility] Comment on above: Performed By: #### C BC #### [facility] [address] [place] [address] Dr. Brittanie Burns Neutrophils/100 WBC (Bld) 78.5 % Critically high 43.0-75.0 [facility] Comment on above: Performed By: #### C BC #### [facility] [address] [place], [place] [address] Dr. Brittanie Burns Platelet mean volume (Bld) [Entitic vol] 9.2 fL Critically low 9.5-13.5 [facility] Comment on above: Performed By: #### C BC #### [facility] [address] [place], [place] [address] Dr. Brittanie Burns PLT 251 103/ul Normal 150-450 [facility] Comment on above: Performed By: #### C BC #### [facility] [address] [address] [address] Brittanie Burns RBC 3.76 106/ul Critically low 4.70-6.10 [facility] Comment on above: Performed By: #### C BC #### [facility] [address] [address] [address] Brittanie Burns WBC 13.4 103/ul Critically high 4.0-11.0 [facility] Comment on above: Performed By: #### C BC #### [facility] [address] [place] [address] Dr. Brittanie Burns LIPID PROFILEon 10-17-2022 CHOL-HDL RATIO NORM SEE BELOW Normal [facility] Comment on above: Result Comment: 3.3 - 4.4 LOW RISK 4.4 - 7.1 AVERAGE RISK 7.1 - 11.0 MODERATE RISK >11.0 HIGH RISK Performed By: #### D RUGRPD #### [facility] [address] [place] [address] Dr. Brittanie Burns Cholesterol [Mass/Vol] 162 mg/dL Normal <=200 [facility] Comment on above: Performed By: #### D RUGRPD #### [facility] [address] [id number] [address] Brittanie Burns Cholesterol in HDL [Mass/Vol] 32 mg/dL Critically low 40-60 [facility] Comment on above: Performed By: #### D RUGRPD #### [facility] [address] [id number] [address] Brittanie Burns Cholesterol in LDL [Mass/Vol] 98.6 mg/dL Normal [facility] Comment on above: Performed By: #### D RUGRPD #### [facility] [address] [address] [address] Brittanie Burns Cholesterol.total/Chol esterol in HDL [Mass ratio] 5.1 {ratio} Normal [facility] Comment on above: Performed By: #### D RUGRPD #### [facility] [address] [address] [address] Brittanie Burns HDL NORMAL > or = 60 mg/dl - LOW CARDIOVASCULAR RISK <40 mg/dl - HIGH CARDIOVASCULAR RISK Normal [facility] Comment on above: Performed By: #### D RUGRPD #### [facility] [address] [address] [address] Brittanie Burns LDL CALC NORMAL SEE BELOW Normal [facility] Comment on above: Result Comment: <100 mg/dl OPTIMAL 100 - 129 mg/dl NEAR OR ABOVE OPTIMAL 130 - 159 mg/dl BORDERLINE HIGH 160 - 189 mg/dl HIGH >190 mg/dl VERY HIGH Performed By: #### D RUGRPD #### [facility] [address] [address] [address] Brittanie Burns Triglyceride [Mass/Vol] 157 mg/dL Critically high <=150 [facility] Comment on above: Performed By: #### D RUGRPD #### [facility] [address] [address] [address] Brittanie Burns VLDL CALC 31.4 mg/dL Normal [facility] Comment on above: Performed By: #### D RUGRPD #### [facility] [address] [address] [address] Brittanie Burns MRI BRAIN WO CONon [...] by: DIONNE JEROME Date: 2022-10-17 21:49 Normal [facility] PROF 14(COMP METB)on 10-17- 023 Albumin [Mass/Vol] 3.1 g/dL Critically low 3.4-5.0 [facility] Comment on above: Performed By: #### B 12FOL #### [facility] [address] [address] [address] Brittanie Burns Albumin/Globulin [Mass ratio] 0.9 {ratio} Normal [facility] Comment on above: Performed By: #### B 12FOL #### [facility] [address] [place] [address] Dr. Brittanie Burns ALP [Catalytic activity/Vol] 63 U/L Normal 46-116 [facility] Comment on above: Performed By: #### B 12FOL #### [facility] [address] [place] [address] Dr. Brittanie Burns ALT [Catalytic activity/Vol] 15 U/L Critically low 16-63 [facility] Comment on above: Performed By: #### B 12FOL #### [facility] [address] [place] [address] Dr. Brittanie Burns Anion gap [Moles/Vol] 17.5 mmol/L Normal [facility] Comment on above: Performed By: #### B 12FOL #### [facility] [address] [place] [address] Dr. Brittanie Burns AST [Catalytic activity/Vol] 15 U/L Normal 15-37 [facility] Comment on above: Performed By: #### B 12FOL #### [facility] [address] [place] [address] Dr. Brittanie Burns Bilirubin [Mass/Vol] 0.4 mg/dL Normal 0.2-1.0 [facility] Comment on above: Performed By: #### B 12FOL #### [facility] [address] [address] [address] Brittanie Burns Calcium [Mass/Vol] 9.0 mg/dL Normal 8.5-10.1 [facility] Comment on above: Performed By: #### B 12FOL #### [facility] [address] [place] [address] Dr. Brittanie Burns Chloride [Moles/Vol] 114 mmol/L Critically high 98-107 [facility] Comment on above: Performed By: #### B 12FOL #### [facility] [address] [place] [address] Dr. Brittanie Burns CO2 [Moles/Vol] 22.8 mmol/L Normal 21.0-32.0 [facility] Comment on above: Performed By: #### B 12FOL #### [facility] [address] [place] [address] Dr. Brittanie Burns Creatinine [Mass/Vol] 6.98 mg/dL Critically high 0.70-1.30 [facility] Comment on above: Performed By: #### B 12FOL #### [facility] [address] [place] [address] Dr. Brittanie Burns EGFR-AF UZBEK 9 mL/min/1.73m2 Critically low >=60 [facility] Comment on above: Performed By: #### B 12FOL #### [facility] [address] [place] [address] Dr. Brittanie Burns EGFR-NON AF UZBEK 8 mL/min/1.73m2 Critically low >=60 [facility] Comment on above: Performed By: #### B 12FOL #### [facility] [address] [place] [address] Dr. Brittanie Burns Globulin (S) [Mass/Vol] 3.3 g/dL Normal [facility] Comment on above: Performed By: #### B 12FOL #### [facility] [address] [place] [address] Dr. Brittanie Burns Glucose [Mass/Vol] 104 mg/dL Normal 74-106 [facility] Comment on above: Performed By: #### B 12FOL #### [facility] [address] [place] [address] Dr. Brittanie Burns Potassium [Moles/Vol] 5.3 mmol/L Critically high 3.5-5.1 [facility] Comment on above: Performed By: #### B 12FOL #### [facility] [address] [place] [address] Dr. Brittanie Burns Protein [Mass/Vol] 6.4 g/dL Normal 6.4-8.2 [facility] Comment on above: Performed By: #### B 12FOL #### [facility] [address] [place] [address] Dr. Brittanie Burns Sodium [Moles/Vol] 149 mmol/L Critically high 136-145 [facility] Comment on above: Performed By: #### B 12FOL #### [facility] [address] [place] [address] Dr. Brittanie Burns Urea nitrogen [Mass/Vol] 45.0 mg/dL Critically high 7.0-18.0 [facility] Comment on above: Performed By: #### B 12FOL #### [facility] [address] [place] [address] Dr. Brittanie Burns Urea nitrogen/Creatinine [Mass ratio] 6.4 mg/mg Normal [facility] Comment on above: Performed By: #### B 12FOL #### [facility] [address] [place] [address] Dr. Brittanie Burns TSHon 10-17-2022 TSH 1.347 uIU/mL Normal 0.358-3.740 [facility] Comment on above: Performed By: #### D RUGRPD #### [facility] [address] [place] [address] Dr. Brittanie Burns VIT B12 AND FOLATEon 023 Cobalamin (Vitamin B12) [Mass/Vol] 296.0 pg/mL Normal 193.0-986.0 [facility] Comment on above: Performed By: #### B 12FOL #### [facility] [address] [place] [address] Dr. Brittanie Burns FOLATE 12.20 ng/mL Normal 8.60-58.90 [facility] Comment on above: Performed By: #### B 12FOL #### [facility] [address] [place] [address] Dr. Brittanie Burns ACETAMINOPHENon 10-16-2022 Acetaminophen [Mass/Vol] ug/mL Critically low 10.0-30.0 [facility] Comment on above: Performed By: #### L YMA #### [facility] [address] [place] [address] Dr. Brittanie Burns ACETONE SERUMon 10-16-2022 ACETONE Negative Normal NEGATIVE [facility] Comment on above: Performed By: #### D RUGRPD #### [facility] [address] [place] [address] Dr. Brittanie Burns AMMONIAon 10-16-2022 Ammonia (P) [Mass/Vol] ug/dL Critically low 11-32 [facility] Comment on above: Performed By: #### L YMA #### [facility] [address] [place] [address] Dr. Brittanie Burns BLOOD CULTURE ID PANELon A. baumannii Not detected Normal NOT DETECTED [facility] Comment on above: Performed By: #### L YMA #### [facility] [address] [place] [address] Dr. Brittanie Burns Bacteriodes fragilis Not detected Normal NOT DETECTED [facility] Comment on above: Performed By: #### L YMA #### [facility] [address] [place] [address] Dr. Brittanie Burns BCID CONTROLS PASSED Normal [facility] Comment on above: Performed By: #### L YMA #### [facility] [address] [place] [address] Dr. Brittanie BRANHAMDBTHD BLOOD CULTURE BOTTLE INFORMATION Normal [facility] Comment on above: Performed By: #### L YMA #### [facility] [address] [place] [address] Dr. Brittanie Burns BCIDHD1 ANTIMICROBIAL RESISTANCE GENES Normal [facility] Comment on above: Performed By: #### L YMA #### [facility] [address] [place] [address] Dr. Brittanie Burns BCIDHD2 SEE BELOW Normal [facility] Comment on above: Result Comment: Note : Antimicrobial resitance can occur via multiple mechanisms. A Not Detected result for the [employer] antomicrobial resistance gene assays does not indicate antimicrobial susceptibility. Subculturing is required for species identification and susceptibility testing of isolates. Performed By: #### L YMA #### [facility] [address] [place] [address] Dr. Brittanie Burns BCIDHD3 Positive Normal [facility] Comment on above: Performed By: #### L YMA #### [facility] [address] [place] [address] Dr. Brittanie Burns BCIDHD4 Negative Normal [facility] Comment on above: Performed By: #### L YMA #### [facility] [address] [place] [address] Dr. Brittanie Burns BCIDHD5 YEAST Normal [facility] Comment on above: Performed By: #### L YMA #### [facility] [address] [place] [address] Dr. Brittanie Burns Bottle Set: Set 2 Normal [facility] Comment on above: Performed By: #### L YMA #### [facility] [address] [place] [address] Dr. Brittanie Burns Bottle: Anaerobic Normal [facility] Comment on above: Performed By: #### L YMA #### [facility] [address] [place] [address] Dr. Brittanie Burns C. neoformans/gattii Not detected Normal NOT DETECTED [facility] Comment on above: Performed By: #### L YMA #### [facility] [address] [place] [address] Dr. Brittanie Burns Mari albicans Not detected Normal NOT DETECTED [facility] Comment on above: Performed By: #### L YMA #### [facility] [address] [place] [address] Dr. Brittanie Burns Mari auris Not detected Normal NOT DETECTED [facility] Comment on above: Performed By: #### L YMA #### [facility] [address] [address] [address] Brittanie Burns Mari glabrata Not detected Normal NOT DETECTED [facility] Comment on above: Performed By: #### L YMA #### [facility] [address] [address] [address] Brittanie Burns Mari Krusei Not detected Normal NOT DETECTED [facility] Comment on above: Performed By: #### L YMA #### [facility] [address] [address] [address] Brittanie Burns Mari Parapsilosis Not detected Normal NOT DETECTED [facility] Comment on above: Performed By: #### L YMA #### [facility] [address] [address] [address] Brittanie Burns Mari Tropicalis Not detected Normal NOT DETECTED [facility] Comment on above: Performed By: #### L YMA #### [facility] [address] [place] [address] Dr. Brittanie Burns CTX-M Resistant Gene Not Applicable Normal NOT DETECTE D [facility] Comment on above: Performed By: #### L YMA #### [facility] [address] [place] [address] Dr. Brittanie Burns E. Cloacae complex Not detected Normal NOT DETECTED [facility] Comment on above: Performed By: #### L YMA #### [facility] [address] [address] [address] Brittanie Burns E. faecalis Not detected Normal NOT DETECTED [facility] Comment on above: Performed By: #### L YMA #### [facility] [address] [place] [address] Dr. Brittanie Burns E. faecium Not detected Normal NOT DETECTED [facility] Comment on above: Performed By: #### L YMA #### [facility] [address] [place] [address] Dr. Brittanie Burns Enterobacteriaceae Not detected Normal NOT DETECTED [facility] Comment on above: Performed By: #### L YMA #### [facility] [address] [address] [address] Brittanie Burns Escherichia coli Not detected Normal NOT DETECTED [facility] Comment on above: Performed By: #### L YMA #### [facility] [address] [place] [address] Dr. Brittanie Burns H. influenzae Not detected Normal NOT DETECTED [facility] Comment on above: Performed By: #### L YMA #### [facility] [address] [place] [address] Dr. Brittanie Burns IMP Resistant Gene Not Applicable Normal NOT DETECTED [facility] Comment on above: Performed By: #### L YMA #### [facility] [address] [place] [address] Dr. Brittanie Burns K. oxytoca Not detected Normal NOT DETECTED [facility] Comment on above: Performed By: #### L YMA #### [facility] [address] [place] [address] Dr. Brittanie Burns K. pneumoniae Not detected Normal NOT DETECTED [facility] Comment on above: Performed By: #### L YMA #### [facility] [address] [place] [address] Dr. Brittanie Burns Klebsiella aerogenes Not detected Normal NOT DETECTED [facility] Comment on above: Performed By: #### L YMA #### [facility] [address] [place] [address] Dr. Brittanie Burns KPC Resistant Gene Not Applicable Normal NOT DETECTED [facility] Comment on above: Performed By: #### L YMA #### [facility] [address] [place] [address] Dr. Brittanie Burns List. monocytogenes Not detected Normal NOT DETECTED [facility] Comment on above: Performed By: #### L YMA #### [facility] [address] [place] [address] Dr. Brittanie Burns Mcr-1 Resistant Gene Not Applicable Normal NOT DETECTE D [facility] Comment on above: Performed By: #### L YMA #### [facility] [address] [place] [address] Dr. Brittanie Burns mecA/C Not Applicable Normal NOT DETECTED [facility] Comment on above: Performed By: #### L YMA #### [facility] [address] [place] [address] Dr. Brittanie Burns mecA/C MREJ Not Applicable Normal NOT DETECTED [facility] Comment on above: Performed By: #### L YMA #### [facility] [address] [place] [address] Dr. Brittanie Burns N. meningitidis Not detected Normal NOT DETECTED [facility] Comment on above: Performed By: #### L YMA #### [facility] [address] [place] [address] Dr. Brittanie Burns NDM Resistant Gene Not Applicable Normal NOT DETECTED [facility] Comment on above: Performed By: #### L YMA #### [facility] [address] [place] [address] Dr. Brittanie Burns Oxa-48-like Not Applicable Normal NOT DETECTED [facility] Comment on above: Performed By: #### L YMA #### [facility] [address] [place] [address] Dr. Brittanie Burns Proteus Not detected Normal NOT DETECTED [facility] Comment on above: Performed By: #### L YMA #### [facility] [address] [place] [address] Dr. Brittanie Burns Pseud. aeruginosa Not detected Normal NOT DETECTED [facility] Comment on above: Performed By: #### L YMA #### [facility] [address] [place] [address] Dr. Brittanie Burns S. maltophilia Not detected Normal NOT DETECTED [facility] Comment on above: Performed By: #### L YMA #### [facility] [address] [place] [address] Dr. Brittanie Burns Salmonella Not detected Normal NOT DETECTED [facility] Comment on above: Performed By: #### L YMA #### [facility] [address] [place] [address] Dr. Brittanie Burns Seratia marcescens Not detected Normal NOT DETECTED [facility] Comment on above: Performed By: #### L YMA #### [facility] [address] [address] [address] Brittanie Burns Site: Lt Forearm Normal [facility] Comment on above: Performed By: #### L YMA #### [facility] [address] [place] [address] Dr. Brittanie Burns Staph. aureus Not detected Normal NOT DETECTED [facility] Comment on above: Performed By: #### L YMA #### [facility] [address] [place] [address] Dr. Brittanie Burns Staph. epidermidis Not detected Normal NOT DETECTED [facility] Comment on above: Performed By: #### L YMA #### [facility] [address] [place] [address] Dr. Brittanie Burns Staph. lugdunensis Not detected Normal NOT DETECTED [facility] Comment on above: Performed By: #### L YMA #### [facility] [address] [place] [address] Dr. Brittanie Burns Staphylococcus Detected Critically abnormal NOT DETECTED [facility] Comment on above: Performed By: #### L YMA #### [facility] [address] [place] [address] Dr. Brittanie Burns Strep. agalactiae Not detected Normal NOT DETECTED [facility] Comment on above: Performed By: #### L YMA #### [facility] [address] [place] [address] Dr. Brittanie Burns Strep. pneumoniae Not detected Normal NOT DETECTED [facility] Comment on above: Performed By: #### L YMA #### [facility] [address] [place] [address] Dr. Brittanie Burns Strep. pyogenes Not detected Normal NOT DETECTED [facility] Comment on above: Performed By: #### L YMA #### [facility] [address] [place] [address] Dr. Brittanie Burns Streptococcus Not detected Normal NOT DETECTED [facility] Comment on above: Performed By: #### L YMA #### [facility] [address] [place] [address] Dr. Brittanie Burns Golden/B Resist. Gene Not Applicable Normal NOT DETECTED [facility] Comment on above: Performed By: #### L YMA #### [facility] [address] [place] [address] Dr. Brittanie Burns VIM Resistant Gene Not Applicable Normal NOT DETECTED [facility] Comment on above: Performed By: #### L YMA #### [facility] [address] [place] [address] Dr. Brittanie Burns BNPon 10-16-2022 Natriuretic peptide B (Bld) [Mass/Vol] 881.0 pg/mL Normal <=900.0 [facility] Comment on above: Performed By: #### B 12FOL #### [facility] [address] [place] [address] Dr. Brittanie Burns CARDIAC TING ADMITon 023 CK [Catalytic activity/Vol] 153 U/L Normal 39-308 [facility] Comment on above: Performed By: #### B 12FOL #### [facility] [address] [place] [address] Dr. Brittanie Burns CK.MB [Mass/Vol] 1.86 ng/mL Normal <=3.60 [facility] Comment on above: Performed By: #### B 12FOL #### [facility] [address] [place] [address] Dr. Brittanie Burns HSTROP 29.4 pg/mL Normal 4.0-76.1 [facility] Comment on above: Result Comment: CUT- OFF POINTS HAVE BEEN ESTABLISHED BASED ON THE FOURTH UNIVERSAL DEFINITIONS OF MYOCARDIAL INFARCTION. THE UPPER REFERENCE LIMIT (URL) OF TROPONIN, DEFINED THE 99TH PERCENTILE OF cTnI DISTRIBUTION IN A REFERENCE POPULATION, HAS BEEN CONFIRMED THE DECISION THRESHOLD FOR MS DIAGNOSIS. Performed By: #### B 12FOL #### [facility] [address] [place] [address] Dr. Brittanie Burns LYRIC 201 ng/mL Critically high 16-96 [facility] Comment on above: Performed By: #### B 12FOL #### [facility] [address] [place] [address] Dr. Brittanie Burns CBC AUTO DIFFon 10-16-2022 BASO # 0.1 103/ul Normal 0.0-0.1 [facility] Comment on above: Performed By: #### C BC #### [facility] [address] [place] [address] Dr. Brittanie Burns Basophils/100 WBC (Bld) 0.6 % Normal 0.2-2.0 [facility] Comment on above: Performed By: #### C BC #### [facility] [address] [place] [address] Dr. Brittanie Burns EO # 0.1 103/ul Normal 0.0-0.7 [facility] Comment on above: Performed By: #### C BC #### [facility] [address] [place] [address] Dr. Brittanie Burns Eosinophils/100 WBC (Bld) 0.8 % Critically low 0.9-7.0 [facility] Comment on above: Performed By: #### C BC #### [facility] [address] [place] [address] Dr. Brittanie Burns Erythrocyte distribution width (RBC) [Ratio] 13.7 % Normal 11.0-15.0 [facility] Comment on above: Performed By: #### C BC #### [facility] [address] [place] [address] Dr. Brittanie Burns Hematocrit (Bld) [Volume fraction] 41.4 % Critically low 42.0-54.0 [facility] Comment on above: Performed By: #### C BC #### [facility] [address] [place] [address] Dr. Brittanie Burns Hemoglobin (Bld) [Mass/Vol] 13.9 g/dL Critically low 14.0-18.0 [facility] Comment on above: Performed By: #### C BC #### [facility] [address] [place] [address] Dr. Brittanie Burns IG # 0.05 10e3/ul Critically high 0.00-0.03 [facility] Comment on above: Performed By: #### C BC #### [facility] [address] [place] [address] Dr. Brittanie Burns IG % 0.4 % Normal 0.0-0.5 [facility] Comment on above: Performed By: #### C BC #### [facility] [address] [place] [address] Dr. Brittanie Burns LYMPH # 1.4 103/ul Normal 1.2-3.8 [facility] Comment on above: Performed By: #### C BC #### [facility] [address] [place] [address] Dr. Brittanie Burns Lymphocytes/100 WBC (Bld) 11.0 % Critically low 20.5-60.0 [facility] Comment on above: Performed By: #### C BC #### [facility] [address] [place] [address] Dr. Brittanie Burns MANUAL DIFF REQ NO Normal [facility] Comment on above: Performed By: #### C BC #### [facility] [address] [place] [address] Dr. Brittanie Burns MCH (RBC) [Entitic mass] 30.5 pg Normal 25.9-34.0 [facility] Comment on above: Performed By: #### C BC #### [facility] [address] [place] [address] Dr. Brittanie Burns MCHC (RBC) [Mass/Vol] 33.6 g/dL Normal 29.9-35.2 [facility] Comment on above: Performed By: #### C BC #### [facility] [address] [place] [address] Dr. Brittanie Burns MCV (RBC) [Entitic vol] 91.0 fL Normal 80.0-94.0 [facility] Comment on above: Performed By: #### C BC #### [facility] [address] [place] [address] Dr. Brittanie Burns MONO # 1.2 103/ul Critically high 0.3-0.8 [facility] Comment on above: Performed By: #### C BC #### [facility] [address] [place] [address] Dr. Brittanie Burns Monocytes/100 WBC (Bld) 9.3 % Normal 1.7-12.0 [facility] Comment on above: Performed By: #### C BC #### [facility] [address] [address] [address] Brittanie Burns NEUT # 10.0 103/ul Critically high 1.4-6.5 [facility] Comment on above: Performed By: #### C BC #### [facility] [address] [id number] [address] Brittanie Burns Neutrophils/100 WBC (Bld) 77.9 % Critically high 43.0-75.0 [facility] Comment on above: Performed By: #### C BC #### [facility] [address] [address] [address] Brittanie Burns Platelet mean volume (Bld) [Entitic vol] 9.6 fL Normal 9.5-13.5 [facility] Comment on above: Performed By: #### C BC #### [facility] [address] [address] [address] Brittanie Burns PLT 269 103/ul Normal 150-450 [facility] Comment on above: Performed By: #### C BC #### [facility] [address] [id number] [address] Brittanie Burns RBC 4.55 106/ul Critically low 4.70-6.10 [facility] Comment on above: Performed By: #### C BC #### [facility] [address] [id number] [address] Brittanie Burns WBC 12.8 103/ul Critically high 4.0-11.0 [facility] Comment on above: Performed By: #### C BC #### [facility] [address] [place] [address] ABD/PELVIS WO CONon [...] by: KYLE BOYLE Date: 2022-10-16 15:02 Normal [facility] CT STROKE HEAD WOon 10-17-19 CT STROKE [...] by: KYLE BOYLE Date: 2022-10-16 13:12 Normal [facility] CULTURE BLOODon 10-16-2022 Microscopic examination of blood, culture Culture Observations: NO GROWTH AT 5 DAYS. Normal [facility] Comment on above: Performed By: #### C BC #### [facility] [address] [place] [address] Dr. Brittanie Burns CULTURE URINEon 10-16-2022 CULTURE URINE Culture Observations: NO GROWTH. Normal [facility] Comment on above: Performed By: #### C BC #### [facility] [address] [address] [address] Brittanie Burns [facility]22 SARS-CoV-2 (COVID-19) RNA HOPE+probe Ql (Unsp spec) Not detected Normal NOT DETECTED [facility] Comment on above: Result Comment: When diagnostic [...] for this test is supported by the [employer] and Human Service's declaration that [...] used). Performed By: #### D RUGRPD #### [facility] [address] [address] [address] Brittanie Burns DRUG SCREEN RAPID (URINE)on 10-16-2022 AMP Negative Normal NEGATIVE [facility] Comment on above: Performed By: #### D RUGRPD #### [facility] [address] [place] [address] Dr. Brittanie Burns BAR Negative Normal NEGATIVE [facility] Comment on above: Performed By: #### D RUGRPD #### [facility] [address] [place] [address] Dr. Brittanie Burns BUP Negative Normal NEGATIVE [facility] Comment on above: Performed By: #### D RUGRPD #### [facility] [address] [place] [address] Dr. Brittanie Burns BZO Negative Normal NEGATIVE [facility] Comment on above: Performed By: #### D RUGRPD #### [facility] [address] [place] [address] Dr. Brittanie Burns MARCELA Negative Normal NEGATIVE [facility] Comment on above: Performed By: #### D RUGRPD #### [facility] [address] [place] [address] Dr. Brittanie Burns CUT-OFFS SEE BELOW Normal [facility] Comment on above: Result Comment: AMP (Amphetamine): 500ng/mL, BAR (Barbituates): 200 ng/mL, BZO (Benzodiazepines): 150 ng/mL, BUP (Buprenorphine): 10 ng/mL, MARCELA (Cocaine): 150 ng/mL, mAMP (Methamphetamine): 500 ng/mL, MTD (Methadone): 200 ng/mL, OPI (Opiates): 100 ng/mL, OXY (Oxycodone): 100 ng/mL, PCP (Phencyclidine): 25 ng/mL, PPX (Propoxyphene): 300 ng/mL, THC (Cannabinoids): 50 ng/mL, TCA (Trycyclic Antidepressants): 300 ng/mL Performed By: #### D RUGRPD #### [facility] [address] [place] [address] Dr. Brittanie Burns DRUG CUT HEADER DRUG CLASS TEST SYSTEM CUT-OFF CONCENTRATIONS ARE FOLLOWS: Normal [facility] Comment on above: Performed By: #### D RUGRPD #### [facility] [address] [place] [address] Dr. Brittanie Burns mAMP Negative Normal NEGATIVE [facility] Comment on above: Performed By: #### D RUGRPD #### [facility] [address] [place] [address] Dr. Brittanie Burns MTD Negative Normal NEGATIVE [facility] Comment on above: Performed By: #### D RUGRPD #### [facility] [address] [place] [address] Dr. Brittanie Burns OPI Negative Normal NEGATIVE [facility] Comment on above: Performed By: #### D RUGRPD #### [facility] [address] [place] [address] Dr. Brittanie Burns OXY Negative Normal NEGATIVE [facility] Comment on above: Performed By: #### D RUGRPD #### [facility] [address] [place] [address] Dr. Brittanie Burns PCP Negative Normal NEGATIVE [facility] Comment on above: Performed By: #### D RUGRPD #### [facility] [address] [place] [address] Dr. Brittanie Burns PPX Negative Normal NEGATIVE [facility] Comment on above: Performed By: #### D RUGRPD #### [facility] [address] [place] [address] Dr. Brittanie Burns TCA Negative Normal NEGATIVE [facility] Comment on above: Performed By: #### D RUGRPD #### [facility] [address] [place] [address] Dr. Brittanie Burns THC Positive Abnormal NEGATIVE [facility] Comment on above: Performed By: #### D RUGRPD #### [facility] [address] [place] [address] Dr. Brittanie Burns ER URINE PROFILEon 3 Bilirubin Ql (U) Negative Normal NEGATIVE [facility] Comment on above: Performed By: #### D RUGRPD #### [facility] [address] [address] [address] Brittanie Burns Clarity (U) CLEAR Normal CLEAR [facility] Comment on above: Performed By: #### D RUGRPD #### [facility] [address] [place] [address] Dr. Brittanie Burns Color (U) LT. YELLOW Normal YELLOW [facility] Comment on above: Performed By: #### D RUGRPD #### [facility] [address] [place] [address] Dr. Brittanie MCCLELLAN A micrscopic examination will be performed if indicated. Normal [facility] Comment on above: Performed By: #### D RUGRPD #### [facility] [address] [place] [address] Dr. Brittanie Burns Glucose Ql (U) Negative Normal NEGATIVE [facility] Comment on above: Performed By: #### D RUGRPD #### [facility] [address] [place] [address] Dr. Brittanie Burns Hemoglobin Ql (U) SMALL Abnormal NEGATIVE [facility] Comment on above: Performed By: #### D RUGRPD #### [facility] [address] [place] [address] Dr. Brittanie Burns Ketones Ql (U) Negative Normal NEGATIVE [facility] Comment on above: Performed By: #### D RUGRPD #### [facility] [address] [place] [address] Dr. Brittanie Burns LEUKOCYTES Negative Normal NEGATIVE [facility] Comment on above: Performed By: #### D RUGRPD #### [facility] [address] [place] [address] Dr. Brittanie Burns Nitrite Ql (U) Negative Normal NEGATIVE [facility] Comment on above: Performed By: #### D RUGRPD #### [facility] [address] [place] [address] Dr. Brittanie Burns pH (U) 6.0 [pH] Normal 5-9 [facility] Comment on above: Performed By: #### D RUGRPD #### [facility] [address] [place] [address] Dr. Brittanie Burns SPEC GRAVITY 1.010 Normal 1.005-<=1.025 [facility] Comment on above: Performed By: #### D RUGRPD #### [facility] [address] [place] [address] Dr. Brittanie Burns UA PROTEIN Negative Normal NEGATIVE/ TRACE [facility] Comment on above: Performed By: #### D RUGRPD #### [facility] [address] [place] [address] Dr. Brittanie Burns UR MICRO IND INDICATED Normal [facility] Comment on above: Performed By: #### D RUGRPD #### [facility] [address] [place] [address] Dr. Brittanie Burns Urobilinogen Qn (U) 0.2 {Alice'U}/dL Normal 0.2 - 1. 0 [facility] Comment on above: Performed By: #### D RUGRPD #### [facility] [address] [place] [address] Dr. Britatnie Burns ETHANOL (BLD ALC)on 10-17-19 ALC NOTE NOTE: 80 mg/dl is the legal limit for a blood alcohol level Normal [facility] Comment on above: Performed By: #### L YMA #### [facility] [address] [place] [address] Dr. Brittanie Burns Ethanol [Mass/Vol] mg/dL Normal [facility] Comment on above: Performed By: #### L YMA #### [facility] [address] [place] [address] Dr. Brittanie Burns LACTATE/LACTIC ACIDon 2022 Lactate [Moles/Vol] 1.1 mmol/L Normal 0.4-2.0 [facility] Comment on above: Performed By: #### L ACT #### [facility] [address] [place] [address] Dr. Brittanie Burns POINT OF CARE GLUCOSEon 09-22 Glucose [Mass/Vol] 129 mg/dL Critically high 74-106 T [facility] Comment on above: Performed By: #### D RUGRPD #### [facility] [address] [address] [address] Brittanie Burns PROF 14(COMP METB)on 023 Albumin [Mass/Vol] 3.6 g/dL Normal 3.4-5.0 [facility] Comment on above: Performed By: #### B 12FOL #### [facility] [address] [address] [address] Brittanie Burns Albumin/Globulin [Mass ratio] 0.9 {ratio} Normal [facility] Comment on above: Performed By: #### B 12FOL #### [facility] [address] [address] [address] Brittanie Burns ALP [Catalytic activity/Vol] 87 U/L Normal 46-116 [facility] Comment on above: Performed By: #### B 12FOL #### [facility] [address] [address] [address] Brittanie Burns ALT [Catalytic activity/Vol] 13 U/L Critically low 16-63 [facility] Comment on above: Performed By: #### B 12FOL #### [facility] [address] [address] [address] Brittanie Burns Anion gap [Moles/Vol] 17.9 mmol/L Normal [facility] Comment on above: Performed By: #### B 12FOL #### [facility] [address] [address] [address] Brittanie Burns AST [Catalytic activity/Vol] 20 U/L Normal 15-37 [facility] Comment on above: Performed By: #### B 12FOL #### [facility] [address] [address] [address] Brittanie Burns Bilirubin [Mass/Vol] 0.3 mg/dL Normal 0.2-1.0 [facility] Comment on above: Performed By: #### B 12FOL #### [facility] [address] [address] [address] Brittanie Burns Calcium [Mass/Vol] 9.5 mg/dL Normal 8.5-10.1 [facility] Comment on above: Performed By: #### B 12FOL #### [facility] [address] [address] [address] Brittanie Burns Chloride [Moles/Vol] 103 mmol/L Normal 98-107 [facility] Comment on above: Performed By: #### B 12FOL #### [facility] [address] [address] [address] Brittanie Burns CO2 [Moles/Vol] 22.2 mmol/L Normal 21.0-32.0 [facility] Comment on above: Performed By: #### B 12FOL #### [facility] [address] [address] [address] Brittanie Burns Creatinine [Mass/Vol] 7.79 mg/dL Critically high 0.70-1.30 [facility] Comment on above: Performed By: #### B 12FOL #### [facility] [address] [address] [address] Brittanie Burns EGFR-AF UZBEK 8 mL/min/1.73m2 Critically low >=60 [facility] Comment on above: Performed By: #### B 12FOL #### [facility] [address] [address] [address] Brittanie Burns EGFR-NON AF UZBEK 7 mL/min/1.73m2 Critically low >=60 [facility] Comment on above: Performed By: #### B 12FOL #### [facility] [address] [address] [address] Brittanie Burns Globulin (S) [Mass/Vol] 4.0 g/dL Normal [facility] Comment on above: Performed By: #### B 12FOL #### [facility] [address] [address] [address] Brittanie Burns Glucose [Mass/Vol] 129 mg/dL Critically high 74-106 T [facility] Comment on above: Performed By: #### B 12FOL #### [facility] [address] [address] [address] Brittanie Burns Potassium [Moles/Vol] 5.1 mmol/L Normal 3.5-5.1 [facility] Comment on above: Performed By: #### B 12FOL #### [facility] [address] [place] [address] Dr. Brittanie Burns Protein [Mass/Vol] 7.6 g/dL Normal 6.4-8.2 [facility] Comment on above: Performed By: #### B 12FOL #### [facility] [address] [place] [address] Dr. Brittanie Burns Sodium [Moles/Vol] 138 mmol/L Normal 136-145 [facility] Comment on above: Performed By: #### B 12FOL #### [facility] [address] [place] [address] Dr. Brittanie Burns Urea nitrogen [Mass/Vol] 44.0 mg/dL Critically high 7.0-18.0 [facility] Comment on above: Performed By: #### B 12FOL #### [facility] [address] [place] [address] Dr. Brittanie Burns Urea nitrogen/Creatinine [Mass ratio] 5.6 mg/mg Normal [facility] Comment on above: Performed By: #### B 12FOL #### [facility] [address] [place] [address] Dr. Brittanie Burns PROF CHEM 8 (BAS METB)on Anion gap [Moles/Vol] 15.7 mmol/L Normal [facility] Comment on above: Performed By: #### B MP #### [facility] [address] [place] [address] Dr. Brittanie Burns Calcium [Mass/Vol] 8.7 mg/dL Normal 8.5-10.1 [facility] Comment on above: Performed By: #### B MP #### [facility] [address] [place] [address] Dr. Brittanie Burns Chloride [Moles/Vol] 108 mmol/L Critically high 98-107 [facility] Comment on above: Performed By: #### B MP #### [facility] [address] [place] [address] Dr. Brittanie Burns CO2 [Moles/Vol] 23.1 mmol/L Normal 21.0-32.0 [facility] Comment on above: Performed By: #### B MP #### [facility] [address] [address] [address] Brittanie Burns Creatinine [Mass/Vol] 7.19 mg/dL Critically high 0.70-1.30 [facility] Comment on above: Performed By: #### B MP #### [facility] [address] [address] [address] Brittanie Burns EGFR-AF UZBEK 9 mL/min/1.73m2 Critically low >=60 [facility] Comment on above: Performed By: #### B MP #### [facility] [address] [address] [address] Brittanie Burns EGFR-NON AF UZBEK 8 mL/min/1.73m2 Critically low >=60 [facility] Comment on above: Performed By: #### B MP #### [facility] [address] [address] [address] Brittanie Burns Glucose [Mass/Vol] 102 mg/dL Normal 74-106 [facility] Comment on above: Performed By: #### B MP #### [facility] [address] [address] [address] Brittanie Burns Potassium [Moles/Vol] 4.8 mmol/L Normal 3.5-5.1 [facility] Comment on above: Performed By: #### B MP #### [facility] [address] [address] [address] Brittanie Burns Sodium [Moles/Vol] 142 mmol/L Normal 136-145 [facility] Comment on above: Performed By: #### B MP #### [facility] [address] [address] [address] Brittanie Burns Urea nitrogen [Mass/Vol] 44.0 mg/dL Critically high 7.0-18.0 [facility] Comment on above: Performed By: #### B MP #### [facility] [address] [address] [address] Brittanie Burns Urea nitrogen/Creatinine [Mass ratio] 6.1 mg/mg Normal [facility] Comment on above: Performed By: #### B MP #### [facility] [address] [place] [address] Dr. Brittanie Burns PROTIMEon 10-16-2022 INR Coag (PPP) [Relative time] {INR} Normal [facility] Comment on above: Performed By: #### B 12FOL #### [facility] [address] [place] [address] Dr. Brittanie Burns INR GUIDELINES SEE BELOW Normal [facility] Comment on above: Result Comment: GINGER RED INR: 2.0 - 3.0 CONDITIONS NOT LISTED BELOW 2.5 - 3.5 FOR PROSTHETIC HEART VALVE REPLACEMENT 2.5 - 3.5 RECURRENT THROMBOSIS Performed By: #### B 12FOL #### [facility] [address] [place] [address] Dr. Brittanie Burns PT Coag (PPP) [Time] 9.8 s Normal 9.0-11.6 [facility] Comment on above: Performed By: #### B 12FOL #### [facility] [address] [place] [address] Dr. Brittanie Burns PTTon 10-16-2022 aPTT Coag (Bld) [Time] 27.1 s Normal 22.3-36.2 Th [facility] Comment on above: Performed By: #### B 12FOL #### [facility] [address] [place] [address] Dr. Brittanie Burns SALICYLATEon 10-16-2022 SALICYLATE 7.2 mg/dL Normal <=19.9 [facility] Comment on above: Performed By: #### L YMA #### [facility] [address] [place] [address] Dr. Brittanie Burns URINE MICROSCOPIC ONLYon BACTERIA SMALL Abnormal NONE SEEN [facility] Comment on above: Performed By: #### D RUGRPD #### [facility] [address] [place] [address] Dr. Brittanie Burns Bacteria identified Cx Nom (U) INDICATED Normal [facility] Comment on above: Performed By: #### D RUGRPD #### [facility] [address] [address] [address] Brittanie Burns CAST NONE SEEN Normal NONE SEEN [facility] Comment on above: Performed By: #### D RUGRPD #### [facility] [address] [place] [address] Dr. Brittanie Burns Crystals LM Nom (Urine sed) NONE SEEN Normal NONE SEEN [facility] Comment on above: Performed By: #### D RUGRPD #### [facility] [address] [place] [address] Dr. Brittanie Burns Epithelial cells LM Ql (Urine sed) RARE Normal NONE SEEN /RARE [facility] Comment on above: Performed By: #### D RUGRPD #### [facility] [address] [place] [address] Dr. Brittanie Burns MUCOUS NONE SEEN Normal NONE SEEN [facility] Comment on above: Performed By: #### D RUGRPD #### [facility] [address] [place] [address] Dr. Brittanie Burns RBC 2-5 Abnormal 0-2 [facility] Comment on above: Performed By: #### D RUGRPD #### [facility] [address] [place] [address] Dr. Brittanie Burns WBC 2-5 Abnormal NONE SEEN [facility] Comment on above: Performed By: #### D RUGRPD #### [facility] [address] [place] [address] Dr. Brittanie Burns XR CHEST 1 Von 10-16-2022 XR CHEST 1 V EXAM: XR CHEST 1 V HISTORY: Acute confusion COMPARISON: 10/21/2020 TECHNIQUE: Single view of the chest FINDINGS: Heart size normal. No focal consolidation, pleural effusion, pulmonary congestion or pneumothorax. Patient is rotated. Multiple external lines. IMPRESSION: No acute findings. Electronically authenticated by: MYKEL ZELAYA Date: 2022-10-16 13:33 Normal [facility] Encounters Encounter Date Encounter Type Care Provider Facility Start: 12-21-2022 End: 12-21-2022 ambulatory SHAIKH Cory SALINAS Facility: Start: 11-25-2022 End: 11-26-2022 ambulatory SHAIKH Cory SALINAS Facility:[facility] Start: 11-18-2022 End: 11-18-2022 ambulatory SHAIKH Cory SALINAS Facility:[facility] Start: 10-31-2022 End: 11-01-2022 ambulatory [facility] Start: 10-31-2022 End: 10-31-2022 Subsequent hospital visit by physician Ruben Soto MD Work Phone: [facility] Start: 10-26-2022 End: 10-27-2022 ambulatory RUBEN [facility] Start: 10-26-2022 End: 10-26-2022 Subsequent hospital visit by physician Ruben Soto MD Work Phone: [facility] Start: 10-24-2022 End: 10-25-2022 ambulatory SCOUT [facility]OLCOMB [facility] Start: 10-16-2022 End: 10-21-2022 Evaluation [...] above: Performed By: #### B 12FOL #### [facility] [address] [place] [address] Dr. Brittanie Burns Start: 10-31-2022 Basic metabolic pane l calcium total Melodie Nixon MD Work Phone: Start: 10-26-2022 Lipid panel Ruben morales MD Work Phone: Plan of Treatment Date Care Activity Detail Author Start: 02-21-2023 Influenza vaccination Flu vacc ine (Season Ended) [facility] Start: 1969 DTaP/Tdap/Td vaccine (1 - Tdap) DTaP/Tdap/Td vaccine (1 - Tdap) [facility] Start: 01-08-1951 COVID-19 Vaccine (#1) COVID-19 Vacci ne (#1) [facility] Payers Date Payer Category Payer Unknown [id number] 1959 Medicaid [id number] 1959 Medicare [id number] 1950 Unknown [id number] 2.16.84 [id number] 1950 Unknown [id number] 2.16.8 [id number] 1950 Unknown [id number] 2.16.84 [id number] 1950 Unknown [id number] 2.16.84 [id number] 1950 Unknown [id number] 2.16.84 [id number] 1950 Unknown [id number] 2.16.84 [id number] 1950 Unknown [id number] 2.16.84 [id number] 1950 Unknown [id number] 2.16.84 [id number] Social History Date Type Detail Facility Tobacco smoking stat [facility] Tobacco smoking consumption unknown [facility] Work Phone: Start: 1950 Sex Assigned At Not on file B ON [employer] Phone: Clinical Note 06-23-2022 Note Date & [...] by: KYLE DOLAN Date: 2022-06-22 23:22 [facility] Summary Purpose Family History No Family History Records FoundNo Family History Records FoundNo Family History Records Found Advance Directives No Advanced Directives Records FoundNo Advanced Directives Records FoundNo Advanced Directives Records Found Additional Source Comments (unrecognized sect ion and content) No Status Records FoundNo Status Records FoundNo Status Records Found INFORMATION SOURCE (unrecogn ized section and content) DATE CREATED AUTHOR 06/11/2020 [facility] DATE CREATED AUTHOR AUTHOR'S ORGANIZ ATION 11/01/2022 [facility] DATE CREATED AUTHOR AUTHOR'S ORGANIZ ATION 12/30/2022 [facility] Care Teams (unrecognized sec tion and content) [employer] Relationship Specialty Start Date End Date Ruben Soto MD [address] [place] [address] PCP - General Psychiatry 10/24/22 FOR RECORDS [...] BE BASED ON THE PRIMARY CLINICAL RECORDS. [facility]. provides no warranty or guarantee of the accuracy or completeness of information in this document.
--- NOTE | 2023-08-06 05:37 | XR_ITS ---
The [address] [address] Patient Name: SHELBY VALERIO MRN: [id number] date: 1950 Sex: M Assigned Patient Location: ER Current Patient Location: ER Accession/Order Number: [id number] Exam Date: 08/06/2023 05:48 Report Date: 08/06/2023 06:32 At the request of: THERESE GRIMES Procedure: XR chest 1V EXAM: XR chest 1V HISTORY: respiratory distress COMPARISON: Chest x-ray, 07/27/2023. TECHNIQUE: AP supine portable chest x-ray. FINDINGS: New endotracheal tube has its tip 6 cm above the rebekah. Cardiac size, mediastinal contour and pulmonary vascularity are within normal limits. The lungs and pleural spaces appear clear. A broad thoracic dextroscoliosis appears unchanged. XR/XR chest 1V IMPRESSION: 1. New endotracheal tube tip 6 cm above the rebekah. 2. No acute cardiopulmonary findings. Electronically authenticated by: ISABELA SELLERS Date: 08/06/2023 06:32
[2023-08-06] MEDS: 0.9 % SODIUM CHLORIDE 1,000 ML 1000 ML IV ×2 (05:39→07:13)
--- NOTE | 2023-08-06 05:39 | ED_ITS ---
HPI - SOB/Dyspnea General Chief Complaint: Shortness of Breath/Dyspnea Stated Complaint: SOB Time Seen by Provider: 08/06/23 05:36 History of Present Illness HPI Narrative: detention patient arrives in severe respiratory distress. DNRCCA. Patient found in distress at detention. Reportedly given albuterol NMT. Squad called after 1.5 hours . He arrives with C-pap in place. Little air movement. no wheezing , rhonchii or crackles appreciated. pulse ox 40%. Patient shortly after arrival demonstrated declining respiratory effort before we could switch to bipap and then his pulse started to brain down and respirations became more agonal. Decision to intubate patient as he was now in full respiratory failure. No additional information available from detention Related Data Home Medications Medication Instructions Recorded Confirmed acetaminophen 1,000 mg PO .every 4 hours PRN 02/14/23 07/27/23 pain, severe amlodipine 10 mg tablet 10 mg feeding tube DAILY 02/14/23 07/27/23 baclofen 10 mg tablet 10 mg feeding tube TID 02/14/23 07/27/23 clonidine HCl 0.1 mg tablet 0.1 mg feeding tube BID 02/14/23 07/27/23 albuterol sulfate 2.5 mg/3 mL 2.5 mg inhalation Q2H PRN 07/17/23 07/27/23 (0.083 %) solution for nebulization shortness of breath or wheezing doxazosin 1 mg tablet 1 mg feeding tube .QHS 07/17/23 07/27/23 food supplemt, lactose-reduced 30 ea feeding tube CONT 07/17/23 07/27/23 0.04 gram-1.05 kcal/mL oral liquid (Ensure Original) guaifenesin 600 mg tablet, 600 mg PO Q12H PRN congestion 07/17/23 07/27/23 extended release 12 hr (Mucinex) aspirin 81 mg chewable tablet (St 81 mg feeding tube DAILY 07/18/23 07/27/23 Alex Aspirin) valproic acid (as sodium salt) 250 125 mg feeding tube TID 07/18/23 07/27/23 mg/5 mL oral solution Previous Rx's Medication Instructions Recorded gabapentin 300 mg capsule 600 mg (2 x 300 mg) PO BID #1 cap 07/22/23 quetiapine 25 mg tablet 75 mg (3 x 25 mg) PO QHS #1 tab 07/22/23 amino acids-protein hydrolysate 15 1 ea G-tube TID #2,880 mL 07/30/23 gram-100 kcal/30 mL oral liquid pkt (Pro-Stat Sugar Free) ciprofloxacin HCl 500 mg tablet 500 mg PO Q8H #30 tabs 07/30/23 (Cipro) Allergies Allergy/AdvReac Type Severity Reaction Status Date / Time Penicillins Allergy Severe Verified 07/26/23 15:41 propoxyphene [From Darvon] Allergy Severe Unknown Verified 07/26/23 15:41 Review of Systems ROS Status of ROS unobtainable due to mental status (patient in respiratory failure) [facility] Medical History (Updated 08/06/23 @ 06:39 by Jeovanny Landry MD) Acute hypoxic respiratory failure ?J96.01 - Acute respiratory failure with hypoxia (ICD-10) Sepsis ?A41.9 - Sepsis, unspecified organism (ICD-10) Acute dehydration ?E86.0 - Dehydration (ICD-10) Personal history of traumatic brain injury ?Z87.820 - Personal history of traumatic brain injury (ICD-10) Acute respiratory failure with hypercapnia ?J96.02 - Acute respiratory failure with hypercapnia (ICD-10) Aspiration pneumonia ?J69.0 - Pneumonitis due to inhalation of food and vomit (ICD-10) Quadriplegia, post-traumatic ?G82.50 - Quadriplegia, unspecified (ICD-10) ?S14.109S - Unspecified injury at unspecified level of cervical spinal cord, sequela (ICD-10) Hypertension ?I10 - Essential (primary) hypertension (ICD-10) COPD (chronic obstructive pulmonary disease) ?J44.9 - Chronic obstructive pulmonary disease, unspecified (ICD-10) Type 2 diabetes mellitus ?E11.9 - Type 2 diabetes mellitus without complications (ICD-10) Febrile illness ?R50.9 - Fever, unspecified (ICD-10) Respiratory distress ?R06.03 - Acute respiratory distress (ICD-10) Acute on chronic diastolic (congestive) heart failure ?I50.33 - Acute on chronic diastolic (congestive) heart failure (ICD-10) GI bleed ?K92.2 - Gastrointestinal hemorrhage, unspecified (ICD-10) Seizure disorder ?G40.909 - Epilepsy, unspecified, not intractable, without status epilepticus (ICD-10) Respiratory failure with hypoxia ?J96.91 - Respiratory failure, unspecified with hypoxia (ICD-10) Respiratory arrest ?R09.2 - Respiratory arrest (ICD-10) Other chronic osteomyelitis, right ankle and foot (Unknown) ?M86.671 - Other chronic osteomyelitis, right ankle and foot (ICD-10) Dysphagia ?R13.10 - Dysphagia, unspecified (ICD-10) Osteomyelitis of ankle (Unknown) ?M86.9 - Osteomyelitis, unspecified (ICD-10) SVT (supraventricular tachycardia) ?I47.1 - Supraventricular tachycardia (ICD-10) Metabolic encephalopathy ?G93.41 - Metabolic encephalopathy (ICD-10) Cognitive communication deficit ?R41.841 - Cognitive communication deficit (ICD-10) UTI (urinary tract infection) ?N39.0 - Urinary tract infection, site not specified (ICD-10) Traumatic brain injury ?S06.9XAA - Unspecified intracranial injury with loss of consciousness status unknown, initial encounter (ICD-10) Muscle weakness ?M62.81 - Muscle weakness (generalized) (ICD-10) Hyperlipidemia ?E78.5 - Hyperlipidemia, unspecified (ICD-10) Dementia ?F03.90 - Unspecified dementia, unspecified severity, without behavioral disturbance, psychotic disturbance, mood disturbance, and anxiety (ICD-10) Benign prostate hyperplasia ?N40.0 - Benign prostatic hyperplasia without lower urinary tract symptoms (ICD-10) Anxiety ?F41.9 - Anxiety disorder, unspecified (ICD-10) Acute kidney failure ?N17.9 - Acute kidney failure, unspecified (ICD-10) Hypothyroidism ?E03.9 - Hypothyroidism, unspecified (ICD-10) GERD (gastroesophageal reflux disease) ?K21.9 - Gastro-esophageal reflux disease without esophagitis (ICD-10) Difficulty walking ?R26.2 - Difficulty in walking, not elsewhere classified (ICD-10) Psychotic disorder ?F29 - Unspecified psychosis not due to a substance or known physiological condition (ICD-10) Congestive heart failure ?I50.9 - Heart failure, unspecified (ICD-10) Abnormal posture ?R29.3 - Abnormal posture (ICD-10) Acute respiratory distress ?R06.03 - Acute respiratory distress (ICD-10) Aspiration pneumonia ?J69.0 - Pneumonitis due to inhalation of food and vomit (ICD-10) Febrile ?R50.9 - Fever, unspecified (ICD-10) Episode of unresponsiveness ?R40.4 - Transient alteration of awareness (ICD-10) Surgical History (Updated 02/15/23 @ 12:16 by Shaikh Tierra MD) H/O craniotomy ?Z98.890 - Other specified postprocedural states (ICD-10) Social History Within the past year, how often did you have a drink containing alcohol: never Score interpretation: A score less than 4 is consistent with normal alcohol consumption. Smoking status: Unknown if ever smoked Non-prescribed substance use: denies use Exam Constitutional Vital Signs, click to edit/add: Last Vital Signs Temp 99.1 F 08/06/23 05:08 Pulse 107 H 08/06/23 05:08 Resp 30 H 08/06/23 05:08 BP 128/77 08/06/23 05:08 Pulse Ox 98 08/06/23 06:26 O2 Del Method Ambu Bag 08/06/23 06:26 O2 Flow Rate 15 08/06/23 05:08 Common normals: no apparent distress (respiratory failure) General appearance: other (unresponsive) Eye Common normals: conjunctivae normal Respiratory Other: diminished breath sounds throuhout Cardio Rate: tachycardic GI Common normals: soft to palpation Extremity Other: flexor contractures of his extremities Neuro Other: unresponsive Course Vital Signs Vital signs: Vital Signs Temperature 99.1 F 08/06/23 05:08 Pulse Rate 107 H 08/06/23 05:08 Respiratory Rate 30 H 08/06/23 05:08 Blood Pressure 128/77 08/06/23 05:08 Pulse Oximetry 36 L 08/06/23 05:08 Oxygen Delivery Method CPAP 08/06/23 05:08 Oxygen Delivery Flow Rate 15 08/06/23 05:08 Temperature 99.1 F 08/06/23 05:08 Pulse Rate 107 H 08/06/23 05:08 Respiratory Rate 30 H 08/06/23 05:08 Blood Pressure 128/77 08/06/23 05:08 Pulse Oximetry 98 08/06/23 06:26 Oxygen Delivery Method Ambu Bag 08/06/23 06:26 Oxygen Delivery Flow Rate 15 08/06/23 05:08 MDM - SOB/Dyspnea MDM Narrative Medical decision making narrative: patient arrives in distress. History of respiratory distress at the detention. They reportedly treated him with neubulizer treatment for 1.5 hour before deciding to call Squad. He arrives with Cpap in place and hypoxemic. Shortly after arrival even before we could switch him to bipap his respiratory effort began to decline and he was also becoming bradycardic. Respirations then change to agonal type of breathing and decision made to intubate him as he was in full respiratory failure and about to arrest. He is DNRCCA. Intubation successful on 2nd attempt. Has to suction copious amount of soupy material from his mouth and also from the tube. Versed drip ordered to help patient tolerate the tube. Troponin and WBC elevated. [facility] Lab Data Labs: Lab Results 08/06/23 Range/Units 05:30 WBC 31.8 H* (4.0-11.0) 10^3/uL RBC 4.41 L (4.70-6.10) 10^6/uL Hgb 12.6 L (14.0-18.0) g/dL Hct 41.7 L (42.0-54.0) % MCV 94.6 H (80.0-94.0) fL MCH 28.6 (25.9-34.0) pg MCHC 30.2 (29.9-35.2) g/dL RDW 14.0 (11.0-15.0) % Plt Count 524 H (150-450) 10^3/uL MPV 9.4 L (9.5-13.5) fL Seg Neuts % (Manual) 84.0 Lymphocytes % (Manual) 1.0 L (20.5-60.0) % Atypical Lymphs % (Man) 2.0 % Monocytes % (Manual) 13.0 H (1.7-12.0) % Eosinophils % (Manual) 0.0 L (0.9-7.0) % Basophils % (Manual) 0.0 L (0.2-2.0) % Neutrophils # (Manual) 26.71 H (1.4-6.5) 10^3/uL Lymphocytes # (Manual) 0.31 L (1.20-3.80) 10^3/uL Abs Atypical Lymphs Man 0.63 Monocytes # (Manual) 4.13 H (0.30-0.80) 10^3/uL Eosinophils # (Manual) 0.00 (0.00-0.70) 10^3/uL Basophils # (Manual) 0.00 (0.00-0.10) 10^3/uL Sodium 138 (136-145) mmol/L Potassium 5.7 H (3.5-5.1) mmol/L Chloride 99 (98-107) mmol/L Carbon Dioxide 32.3 H (21.0-32.0) mmol/L Anion Gap 12.4 BUN 60.0 H (7.0-18.0) mg/dL Creatinine 1.27 (0.70-1.30) mg/dL Est GFR ( Amer) >60 (>=60) Est GFR (Non-Af Amer) 56 L (>=60) BUN/Creatinine Ratio 47.2 Glucose 169 H (74-106) mg/dL Calcium 10.0 (8.5-10.1) mg/dL Troponin I High Sens 160.5 H* (4.0-76.1) pg/mL Discharge Plan Discharge Chief Complaint: Shortness of Breath/Dyspnea Clinical Impression: Aspiration into airway, Non-ST elevation NV (NSTEMI), Respiratory failure Prescriptions / Home Meds: No Action Pro-Stat Sugar Free 15 gram- 100 kcal/30 mL Liquid In Packet 1 ea G-tube TID Qty: 2880 11RF ciprofloxacin HCl [Cipro] 500 mg tablet 500 mg PO Q8H Qty: 30 0RF clonidine HCl 0.1 mg tablet 0.1 mg feeding tube BID Rx Instructions: GTUBE baclofen 10 mg tablet 10 mg feeding tube TID Rx Instructions: GTUBE amlodipine 10 mg tablet 10 mg feeding tube DAILY Rx Instructions: G-TUBE acetaminophen [Acetaminophen Extra Strength] 1,000 mg PO .every 4 hours PRN (Reason: pain, severe) Rx Instructions: 1000mg every 4 hours as needed doxazosin 1 mg tablet 1 mg feeding tube .QHS albuterol sulfate 2.5 mg /3 mL (0.083 %) solution for nebulization 2.5 mg inhalation Q2H PRN (Reason: shortness of breath or wheezing) guaifenesin [Mucinex] 600 mg tablet extended release 12hr 600 mg PO Q12H PRN (Reason: congestion) Ensure Original 0.04-1.05 gram-kcal/mL Liquid 30 ea feeding tube CONT Rx Instructions: 70cc/hour cont feeds - 120ml/ free water flushes every 4hrs, check residual every 8hrs aspirin [St Alex Aspirin] 81 mg tablet,chewable 81 mg feeding tube DAILY Rx Instructions: GTUBE valproic acid (as sodium salt) 250 mg/5 mL solution 125 mg feeding tube TID Rx Instructions: GTUBE quetiapine 25 mg Tablet 75 mg PO QHS Qty: 1 0RF gabapentin 300 mg Capsule 600 mg PO BID Qty: 1 0RF Referrals: ADELINA NIXON [Primary Care Provider] - 1 week Procedures ED Procedure Instructions Procedures Procedures: intubation: first attempt not successful. copious amount of soupy material and food products suction from his mouth 2nd attempt to intubate with #8 tube and # 3 straight blade successful. xray confirms placement and pulse ox 100%.
[2023-08-06 05:42] LABS: Hematocrit 41.7 % (42.0-54.0); Hemoglobin 12.6 g/dL (14.0-18.0); Mean Corpuscular HGB Conc 30.2 g/dL (29.9-35.2); Mean Corpuscular Hemoglobin 28.6 pg (25.9-34.0); Mean Corpuscular Volume 94.6 fL (80.0-94.0); Mean Platelet Volume 9.4 fL (9.5-13.5); Platelet Count 524 10^3/uL (150-450); Red Blood Count 4.41 10^6/uL (4.70-6.10)
[2023-08-06] MEDS: MIDAZOLAM HCL 2 MG/2 ML VIAL 4 MG IV ×2 (05:43→06:20)
[2023-08-06 05:48] LABS: White Blood Count 31.8 10^3/uL (4.0-11.0)
[2023-08-06 05:57] LABS: Anion Gap 12.4; BUN Creatinine Ratio 47.2; Carbon Dioxide 32.3 mmol/L (21.0-32.0); Chloride 99 mmol/L (98-107); Estimated GFR (African America >60 (>=60); Estimated GFR (Non-African Ame 56 (>=60); Glucose 169 mg/dL (74-106); Potassium 5.7 mmol/L (3.5-5.1); Sodium 138 mmol/L (136-145)
[2023-08-06 06:03] LABS: Troponin I High Sensitivity 160.5 pg/mL (4.0-76.1)
[2023-08-06 06:09] LABS: Atypical Lymphocytes Abs Man 0.63; Lymphocytes Absolute Manual 0.31 10^3/uL (1.20-3.80); Monocytes Absolute Manual 4.13 10^3/uL (0.30-0.80); Segmented Neut Absolute Manual 26.71 10^3/uL (1.4-6.5)
[2023-08-06] MEDS: MIDAZOLAM HCL 100 MG in 0.9 % SODIUM CHLORIDE 80 ML IV (06:15)
--- NOTE | 2023-08-06 06:29 | PC.NURSE ---
Pt brought in by squad in respiratory distress. Pt is 30% on 15L Cpap upon arrival. Pt is nonresponsive. Nurses, RT and Dr Landry at the bedside. Pt is a DNR-CCA from the [facility]. 0509 Pt HR 72, BP 128/77, SpO2 19% on CPAP. IV access attempted with ultrasound. Pt has agonal breathing. 0503 pt is being bagged by RT. 0516 pt is 66% with BVM, IO being preppred 0518 IO inserted, patency verified and labs drawn 0522 Pts mouth being suctioned, intubated with a 7.5 tube 86% SpO2 0543 pt coughing and fighting tube, 4mg versed given with little results. Drip also ordered. BMV continues with suctioning per RT. 100% SpO2 BP 115/50 0547: Chest xray completed 0552: HR 128, 100%. Buckner placed and urine sample obtained 0620 additional 4mg versed ordered and given Pt placed on vent. Vent settings : VT 450 Fio2:50 Peep +5, RR 16 0636 pt vomiting and suctioned again.
[2023-08-06] MEDS: NOREPINEPHRINE BITARTRATE 4 MG in DEXTROSE 5 % IN WATER 250 ML 30.48 MG IV (06:50)
[2023-08-06] MEDS: ONDANSETRON PF 4 MG/2 ML VIAL IV (07:00)
[2023-08-06] MEDS: CLINDAMYCIN PHOSPHATE/D5W 900 MG/50 ML PIGGYBACK 100 MG IV (07:13)
[2023-08-06 07:22] LABS: Allen Test POS (POSITIVE); Base Excess ABG 4.7 mmol/L (-2.0-2.0); Fractionated Inspired Oxygen 50 %; HCO3 ABG 33.1 mmol/L (22.0-26.0); Oxygen Saturation ABG 92.9 %; PO2 ABG 71.4 mmHg (80.0-100.0)
[2023-08-06 07:23] LABS: Puncture Site R RADIAL; Rate 16; Tidal Volume 450; Vent Mode AC
[2023-08-06 07:24] LABS: pH ABG 7.174 (7.350-7.450)
[2023-08-06] MEDS: VANCOMYCIN HCL 1,000 MG in 0.9 % SODIUM CHLORIDE 250 ML 250 MG IV (07:24)
[2023-08-06] MEDS: FENTANYL CITRATE/PF 100 MCG/2 ML VIAL IV ×2 (07:48→10:33)
[2023-08-06 08:02] LABS: SARS-CoV-2 Ag NEGATIVE (NEGATIVE)
--- NOTE | 2023-08-06 10:52 | PC.NURSE ---
1033: PHYSICIAN, RT, AND 2 RN AT BEDSIDE. PT EXTUBATED, SPONTANEOUS RESPIRATION STOPPED, 100 MCG FENTANYL ADMINISTERED IV PER PHYSICIAN ORDER 1033: PT ASYSTOLE ON MONITOR 1040: TIME OF , PT REMAINS ASYSTOLE, FIXED PUPILS, NO SPONTANEOUS BREATHING.
--- NOTE | 2023-08-06 11:21 | PC.NURSE ---
1105: [facility] CONTACTED AND PT DOES NOT QUALIFY FOR ANY TISSUE/ORGAN DONATION #[id number]: [facility] CONTACTED AND INFORMED PT .
== END 2023-08-06 12:31 | disposition expired ==
PROVIDERS: Emergency Provider Internal Medicine; PCP Family Medicine
DX: R09.2 Respiratory arrest (principal); I21.4 Non-ST elevation (NSTEMI) myocardial infarction; Z66 Do not resuscitate; G82.50 Quadriplegia, unspecified; J44.9 Chronic obstructive pulmonary disease, unspecified; E11.9 Type 2 diabetes mellitus without complications; I11.0 Hypertensive heart disease with heart failure; I50.32 Chronic diastolic (congestive) heart failure; G40.909 Epilepsy, unspecified, not intractable, without status epilepticus; E78.5 Hyperlipidemia, unspecified; F03.90 Unspecified dementia, unspecified severity, without behavioral disturbance, psychotic disturbance, mood disturbance, and anxiety; N40.0 Benign prostatic hyperplasia without lower urinary tract symptoms; F41.9 Anxiety disorder, unspecified; E03.9 Hypothyroidism, unspecified; K21.9 Gastro-esophageal reflux disease without esophagitis; Z98.890 Other specified postprocedural states; Z79.899 Other long term (current) drug therapy; Z79.82 Long term (current) use of aspirin; Z87.440 Personal history of urinary (tract) infections; Z87.820 Personal history of traumatic brain injury
CPT/HCPCS: 31500; 31720; 36415; 36600; 71045; 80048; 82805; 84484; 85027; 87635; 87811; 93005; 94002; 96361; 96365; 96366; 96368; 96375; 96376; 99285; J0736; J2250; J2405; J3010; J3370